=== PATIENT | female | born 1965 | race African-American/Black ===

== ENCOUNTER → 2018-09-16 14:49 | Outpatient (CLI) | payer BC, SELFPAY ==
[2017-02-03 21:53] VITALS: BMI 30.9
[2018-09-16 16:19] LABS: Vitamin D,25 Hydroxy 21.5 ng/mL (29.95-100.01)
--- OUTSIDE RECORDS SUMMARY | 2018-11-02 20:00 | XMS RPT_ITS | Clinical Summary ---
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 CARPAL TUNNEL 27968125 Active Symone Del Castillo Carpal SYNDROME (SNOMED CT) / [place] tunnel syndrome WRIST PAIN 39745343 Active Symone Del Castillo Pain in (SNOMED CT) / [place] wrist Medications Medication Instructions Start Stop Generic Name NDC Provider Date Date CENESTIN 1.25 daily / ESTROGENS CONJ 90919172689 Tonya L MG TABS 04 SYNTHETIC A [place] AMBIEN 5 MG every night / ZOLPIDEM TARTRATE 45020338159 Tonya L TABS 04 [place] XOPENEX 1.25 every 6-8 hrs / LEVALBUTEROL HCL 29252614657 Tonya L MG/3ML NEBU 04 [place] FLEXERIL 10 every night / CYCLOBENZAPRINE 19822047267 Tonya L MG TABS 04 HCL [place] IBUPROFEN 800 three times a / IBUPROFEN 36375550835 Tonya L MG TABS day 04 [place] LORATADINE 10 daily / LORATADINE 91044177670 Tonya L MG TABS 04 [place] Medications Administered No information available. Allergies, Adverse Reactions, Alerts Allergy Name Reaction Start Date Severity Status Provider Description MORPHINE REED Critical Active Tonya Moss PENICILLINS Critical Active Tonya Moss CODEINE Critical Active Tonya Moss ALBUTEROL Critical Active Tonya Moss Results Date Name Value Unit Range Flag Description Office Visit SMOK STATUS former smoker Tobacco use [facility] MEDS REVIEW Done Documentation of current medications (procedure) Lab Report: Lactic Acid LACTATE 0.8 mmol/L 0.4-2.0 lactate, serum/plasma Plan of Care No information available. Procedures No information available. Vital Signs Date Name Value Unit Description Heart Rate 74 /min pulse rate E&M - 8867-4 Weight Measured 126 [lb_av] weight E&M - 3141-9 BP Diastolic 74 mm[Hg] blood pressure, diastolic - 8462-4 BP Systolic 136 mm[Hg] blood pressure, systolic - 8480-6 Height 63 [in_us] height E&M - 8302-2
--- OUTSIDE RECORDS SUMMARY | 2018-11-02 20:00 | XMS RPT_ITS | Clinical Summary ---
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 14878251 Active Symone Del Castillo Carpal SYNDROME (SNOMED CT) / [place] tunnel syndrome WRIST PAIN 70836262 Active Symone Del Castillo Pain in (SNOMED CT) / [place] wrist Medications Medication Instructions Start Stop Generic Name NDC Provider Date Date CENESTIN 1.25 daily / ESTROGENS CONJ 98241950569 Tonya L MG TABS 04 SYNTHETIC A [place] AMBIEN 5 MG every night / ZOLPIDEM TARTRATE 23932084403 Tonya L TABS 04 [place] XOPENEX 1.25 every 6-8 hrs / LEVALBUTEROL HCL 56439812522 Tonya L MG/3ML NEBU 04 [place] FLEXERIL 10 every night / CYCLOBENZAPRINE 57889793093 Tonya L MG TABS 04 HCL [place] IBUPROFEN 800 three times a / IBUPROFEN 64949935893 Tonya L MG TABS day 04 [place] LORATADINE 10 daily / LORATADINE 24131256513 Tonya L MG TABS 04 [place] Medications Administered No information available. Allergies, Adverse [...] Acid LACTATE 0.8 mmol/L 0.4-2.0 lactate, serum/plasma Lab Report: CBC W/Diff, Automated LYMPHCT AUTO 2.25 X10 10*3/mm3 0.83-4.51 lymphocyte 3/UL count, blood, automated ANC 3.4 X10 10*3/mm3 2.0-7.7 neutrophil 3/UL count, blood IMM GRANU % 0.200 % 0.0-0.9 immature granulocytes, percentage of total cells, blood BASOPHIL % 0.5 % 0-1 basophils as percent of blood leukocytes EOSINOPHIL % 3.6 % 0-5 eosinophils as percent of blood leukocytes MONOCYTE % 6.7 % 0-10 monocytes as percent of blood leukocytes LYMPHS % 35.7 % 19-41 lymphocytes as percent of blood leukocytes PMN % 53.3 % 47-70 neutrophils as percent of blood leukocytes MPV 8.9 fL 6.2-12.0 mean platelet volume PLATELETS 260 10*3/mm3 150-450 platelet count RDW-SD 47.2 fL 35.1-43.9 H red blood cell distribution width, size density RDW 14.0 % 11.6-14.6 red blood cell distribution width MCHC RBC 32.6 G/GL g/dL 32-36 mean corpuscular hemoglobin concentration, RBC MCH 29.8 pg 27.0-32.0 mean corpuscular hemoglobin, RBC MCV 91.4 fL 81-99 mean corpuscular volume, RBC HCT 36.2 % 37-47 L hematocrit, blood HGB 11.8 g/dL 12.0-15.0 L hemoglobin, blood RBC M/UL 3.96 10*6/uL 4.2-5.4 L red blood count WBC BLOOD 6.3 10*9/L 4.4-11.0 leukocyte (white blood cells) count, blood Lab Report: Comprehensive Metabolic Profil ANION GAP 7 5-15 anion gap, serum CO2 25.0 mmol/L 21.0-32.0 carbon dioxide, venous blood CHLORIDE 111 mmol/L 98-107 H chloride, serum POTASSIUM 4.1 mmol/L 3.5-5.1 potassium, serum SODIUM 143 mmol/L 136-145 sodium, serum BILI TOTAL 0.50 mg/dL 0.20-1.00 bilirubin, serum, total SGPT (ALT) 18 U/L 12-78 alanine aminotransferase (SGPT), serum ALK PHOS 88 U/L 45-117 alkaline phosphatase, serum SGOT (AST) 18 U/L 15-37 aspartate aminotransferase (SGOT), serum CALCIUM 8.6 mg/dL 8.5-10.1 calcium, serum A/G RATIO 1.0 RATIO 0.9-2.4 albumin/globulin ratio, serum GLOBULIN TOT 3.0 g/dL 2.3-3.5 globulins, serum, total ALBUMIN 2.9 g/dL 3.4-5.0 L albumin, serum PROTEIN, TOT 5.9 g/dL 6.4-8.2 L protein, total, serum BUN/CREAT 9.0 RATIO 10-20 L urea nitrogen/creatinine ratio, serum CCVCREABSA 40.47 mL/min calculated corrected value of creatinine clearance with body surface area GFRAA 54 mL/min >60 L Glomerular Filtration rate GFR EST 44 mL/min >60 L estimated glomerular filtration rate CREATININE 1.33 mg/dL 0.55-1.02 H creatinine, serum BUN 12 mg/dL 7-18 urea nitrogen, blood GLUCOSE SER 83 mg/dL 70-110 blood glucose Plan of Care No information available. Procedures [...]
--- OUTSIDE RECORDS SUMMARY | 2018-11-02 20:01 | XMS RPT_ITS ---
:1965 Author Organization [facility] Care Team Providers Name Role Phone Rehana Hernandez Attending Unavailable Jolliff, Rehana Primary Care Unavailable Jolliff, Rehana Attending Unavailable Jolliff, Rehana Primary Care Unavailable Jolliff, Rehana Referring Unavailable Jolliff, Rehana Attending Unavailable Jolliff, Rehana Referring Unavailable Jolliff, Rehana Primary Care Unavailable Leandra Christy Attending Unavailable Jolliff, Rehana Referring Unavailable PROBLEMS PROBLEMS DATE TYPE CONDITION / CODE ATTENDING STATUS SOURCE 10/22/2018 Unknown R92.0 - Mammographic Brissa Christy microcalcification Leandra [facility] found on diagnostic Hospital imaging of breast / Repository R92.0(ICD-10) PROCEDURES PROCEDURES No Procedure Records FoundRESULTS RESULTS SURGERY VISIT REPORT Observed: 10/22/2018 Status: F Source: [place] 10:52 AM [facility] REPOS[facility] [address] [place] [address] OFFICE VISIT Date of Service: 10/22/18 MR#: [id number] Acct: [id number] Name: JUN SHRESTHA V Rep #: [id number] : 1965 Provider: Leandra Christy MD Age/Sex: 52/F Location: [facility] Status: Signed Intake Vital Signs10/22/18 Height 5 ft 3 in 10/22/18 Weight: 150 lb 10/22/18 Body Mass Index (BMI) 26.5 Intake Visit Reasons: R BREAST CALCIFICATIONS, Mammo @ [facility] Education Rep Required: No Is patient in pain?: No Allergies albuterol Allergy (Verified 10/22/18 10:07) Shortness of breath morphine Allergy (Verified 10/22/18 10:07) Rash Penicillins Allergy (Verified 10/22/18 10:07) Hives Medications fluoxetine 10 mg capsule 10 mg PO DAILY 10/22/18 [History Confirmed 10/22/18] [facility] Medical History Anxiety (Acute) Chronic kidney disease, stage 3 (Chronic) Abdominal pain (Acute) Surgical History S/P colonoscopy (Acute) S/P hysterectomy (Acute) S/P tonsillectomy and adenoidectomy (Acute) Status post breast reduction (Acute) Status post surgical removal of ganglion cyst (Acute) s/p fibroid removal (Acute) Social History Smoking Status: Former smoker alcohol intake: never HPI HPI HPI: JUN SHRESTHA, is a 52 F who presents to the office today for microcalcifications of the right breast in the retroareolar region. Patient denies any trauma to her breast other than having bilateral breast reductions in October 2016 in [place]. Patient was previously cup size F and went to . Patient's most recent mammograms did show microcalcifications in the retroareolar region of the right breast which may be postoperative but he was given a BI-RADS 4. Patient denies any breast pain or nipple discharge or change in the overlying skin of the breast. ROS General General: Yes weight change (loss); no fatigue Breast Breast: Yes abnormal mammogram; no left breast lump, right breast lump, nipple discharge, breast pain, abnormal US or breast enlargement Gastro Gastrointestinal: No abdominal pain, No nausea or vomiting, No diarrhea, No constipation, No blood in stool, No acid reflux, No hemorrhoids, No ulcers, No gallbladder problem, No black,tarry stools Exam Const General: cooperative, comfortable, no acute distress Chest Breast Palpation: No nipple discharge Other: Inspection: Breasts symmetric bilaterally, breast reduction scars bilaterally well-healed, no masses or lumps appreciated in bilateral breast, no supraclavicular adenopathy or axillary adenopathy bilaterally Assessment AND Plan Problems 1. Microcalcification of right breast on mammography R92.0 Plan I have discussed above with the patient. I have recommended right stereotactic breast biopsy for the microcalcifications. I have described the procedure to the patient and then we may need to do 2 different sites for the 2 different areas that show up on mammography. A marker clip will be placed to identify the location. Patient has been counseled to the risks/benefits of the procedure. I have explained the risks of the surgery, including but not limited to: infection, bleeding, injury to any blood vessels/nerves, scar tissue, missing the lesion, further surgery, etc. - the patient understands and agrees to proceed. I have answered all of the patient's questions to her satisfaction and she has no further questions. Leandra Christy M.D. Pager: [phone] [facility] [address] [place] [address], [address] [place] [address] Office: [phone] Coding Level of Care Code Off vis,new,level 3 Diagnoses Microcalcification of right breast on mammography R92.0 10/22/18 1052 <Electronically signed by Leandra Christy MD> Date Leandra Christy MD Cosigner Signature: Date (if applicable) CC: Rehana Hernandez MD DIAG MAMM W/CAD, Observed: 10/16/2018 Status: F Source: [place] BIL[place] 1:20 PM [facility] REPOSITORY [facility] Imaging Services [address] [place] [address] DIAG MAMM W/CAD, BILAT MR#: [id number] Acct: [id number] Name: JUN SHRESTHA V Rep #: [id number] : 1965 F 52 From: Brandon Burks MD PCP: Rehana Hernandez MD Status: REG CLI Study: DIAG MAMM W/CAD, BILAT Date of Exam: 10/16/18 Exam# [id number] Ordering Dr: Rehana Hernandez MD MAMMOGRAPHY - UNILATERAL DIAGNOSTIC: RIGHT BREAST REASON FOR EXAM: Female, 52 years old. Abnormal screening mammogram. PERTINENT HISTORY: Non-contributory. TECHNIQUE: Compression spot views of the right breast were obtained. COMPARISON: Comparison is made with prior study dated September 24, 2018. FINDINGS: Breast Composition: The breasts are heterogeneously dense, which may obscure small masses. The calcifications are once again seen in the retroareolar region of the right breast. The patient has a history of prior breast reduction surgery. This may be related to the postsurgical changes. A biopsy recommended for further evaluation. No other significant abnormalities are identified. BI/DIAG MAMM W/CAD, BILAT IMPRESSION: Persistent calcifications in the retroareolar region of the breast as described. A biopsy is recommended for further evaluation. ASSESSMENT CATEGORY: BIRADS Category 4: Suspicious - Biopsy Should Be Considered. A letter regarding these results will be sent to the patient by the facility within 30 days. Approximately 10% of breast cancers are not detected by mammography. A normal mammogram should not delay biopsy of a clinically suspicious abnormality. Electronically Signed: Brandon Burks MD at 14:42 EST Tel [phone], Service support , CC: Rehana Hernandez MD Ultrasonic Seaming Machine Operator: Signed SCREENING MAMM (CAD), Observed: 09/24/2018 Status: F Source: [place] B[place] 3:46 PM [facility] RE[facility] Services [address] [place] [address] SCREENING MAMM (CAD), BILAT MR#: [id number] Acct: [id number] Name: JUN SHRESTHA V Rep #: [id number] : 1965 F 52 From: Pawel Muniz MD PCP: Rehana Hernandez MD Status: REG CLI Study: SCREENING MAMM (CAD), BILAT Date of Exam: 09/24/18 Exam# [id number] Ordering Dr: Rehana Hernandez MD MAMMOGRAPHY - BILATERAL SCREENING 3-D PATRICK SYNTHESIS REASON FOR EXAM: Female, 52 years old. Bilateral Screening 3-D tomosynthesis PERTINENT HISTORY: No significant family history. TECHNIQUE: 2-D mammograms and 3-D Patrick synthesis of the breast (s) were performed. CAD was performed. COMPARISON: April FINDINGS: The breast composition is of scattered fibroglandular tissue There is cluster of microcalcifications noted on the right side. Behind the nipple a new finding since the previous examination for which I do recommend spot compression and mag view to reevaluate these calcifications, however no dense spiculated masses .No architectural distortion is identified. There is no skin thickening or nipple retraction. BI/SCREENING MAMM (CAD), BILAT IMPRESSION: Cluster of microcalcifications microcalcifications on the right side behind the nipple, new finding since the previous study of April 05, 2015. Need further assessment by spot view with compression and mag view. ASSESSMENT CATEGORY: BIRADS-0 FOLLOW UP RECOMMENDATION: Yearly follow up mammogram recommended. (A) Approximately 10% of breast cancers are not detected by mammography. A normal mammogram should not delay biopsy of a clinically suspicious abnormality. Electronically Signed: Pawel Muniz, at 9:11 EST Tel , Service support , CC: Rehana Hernandez MD Ultrasonic Seaming Machine Operator: Signed VITAMIN D,25 HYDROXY Collected: 09/16/2018 Status: F Source: [place] 2:51 PM [facility] REPOSITORY TYPE CODE TESTS RESULT OUT OF REFERENCE UNITS RANGE LAB L506.1000 29.95-100.01 ng/mL Low Vitamin D 21.5 25-OH Result Comment: Vitamin D 25(OH) Status Range Deficiency <20 ng/mL (50nmol/L) Insuffciency 20 - 30 ng/mL (50 - 75 nmol/L) Sufficiency 30 - 100 ng/mL (75 - 250 nmol/L) Toxicity >100 ng/mL (>250 nmol/L) Performed By: #### L506.1000 #### [facility] [address] [place], [address] ALLERGIES ALLERGIES DATE TYPE / CODE NAME / CODE REACTION SEVERITY SOURCE 10/22/2018 Drug Penicillins/ Hives Unknown [facility] Allergy/4160 [id number](R Hospital 70066(SNOMED XNORM) Repository CT) 10/22/2018 Drug morphine/F00 Rash Unknown [facility] Allergy/4160 6973834(RX Hospital 20826(SNOMED RM) Repository CT) 10/22/2018 Drug albuterol/F0 Shortness of Unknown [facility] Allergy/4160 87997426([facility] 45075(SNOMED ORM) Repository CT) ENCOUNTERS ENCOUNTERS ADMIT/DISCHARGE ACCOUNT ADMITTING ENCOUNTER LOCATION SOURCE NUMBER CLASS 10/22/2018/ [id number] Ambulatory BMSBuilding:[place] [address] 4 [place] [facility] Rep[place] 10/16/2018 [id number] Ambulatory [place] 7 [facility] ing:OPBI Repository 09/24/2018 [id number] Ambulatory [place] 4 [facility] ing:OPBI Repository 09/16/2018 [id number] Amb[place] 4 [facility] ing:MFPLAB Repository PAYERS PAYERS ENCOUNTER GUARANTOR PAYER SUBSCRIBER SOURCE 10/22/2018 JUN V Primary JUN V [place] [id number] [place] Insurance:ANTHEMPolic DAVISDOB: [facility] giovanny SOW y Number: [id number] Hospital 80455Mac: (419) [id number] Repository [phone] () Date:[id number] [address] [place] [address] 83891YU: 10/22/2018 Secondary NOT GIVENUNK [place] Insurance:SELF PAY [facility] Number: Effective Repository Date:2018-10-19 10/16/2018 JUN V Primary JUN V [place] [id number] [place] Insurance:ANTHEMPolic DAVISDOB: [facility] giovanny SOW y Number: [id number] Hospital 37447Ewu: (419) [id number] Repository [phone] () Date:[id number] [address] [place] [address] [id number]: 10/16/2018 Secondary NOT GIVENUNK [place] Insurance:SELF PAY [facility] Number: Effective Repository Date:2018-10-01 09/24/2018 JUN V Primary JUN V [place] [id number] [place] Insurance:ANTHEMPolic DAVISDOB: [facility] giovanny SOW y Number: [id number] Hospital [id number]: (419) [id number] Repository [phone] () Date:[id number] [address] [place] [address] [id number]: 09/24/2018 Secondary NOT GIVENUNK [place] Insurance:SELF PAY [facility] Number: Effective Repository Date:2018-08-07 09/16/2018 Jun V Primary Jun V [place] [id number] [place] Insurance:ANTHEMPolic DavisDOB: [facility] giovanny SOW y Number: [id number] Hospital 18329Dcj: (419) [id number] Repository [phone] () Date:[id number] [address] [place] [address] 47215QJ: 09/16/2018 Secondary NOT GIVENUNK [place] Insurance:SELF PAY [facility] Effective Repository Date:2018-09-16
== END ==
PROVIDERS: Family Provider Family Medicine; PCP Family Medicine; Visit Provider Family Medicine
DX: Z00.00 Encounter for general adult medical examination without abnormal findings (principal)
CPT/HCPCS: 36415; 82306

== ENCOUNTER → 2018-09-24 15:43 | Outpatient (CLI) | payer BC, SELFPAY ==
[2017-02-03 21:53] VITALS: BMI 30.9
--- NOTE | 2018-09-24 15:46 | BI_ITS ---
MAMMOGRAPHY - BILATERAL SCREENING 3-D CORI SYNTHESIS REASON FOR EXAM: Female, 52 years old. Bilateral Screening 3-D tomosynthesis PERTINENT HISTORY: No significant family history. TECHNIQUE: 2-D mammograms and 3-D Cori synthesis of the breast (s) were performed. CAD was performed. COMPARISON: April FINDINGS: The breast composition is of scattered fibroglandular tissue There is cluster of microcalcifications noted on the right side. Behind the nipple a new finding since the previous examination for which I do recommend spot compression and mag view to reevaluate these calcifications, however no dense spiculated masses .No architectural distortion is identified. There is no skin thickening or nipple retraction. BI/SCREENING MAMM (CAD), BILAT IMPRESSION: Cluster of microcalcifications microcalcifications on the right side behind the nipple, new finding since the previous study of April 05, 2015. Need further assessment by spot view with compression and mag view. ASSESSMENT CATEGORY: BIRADS-0 FOLLOW UP RECOMMENDATION: Yearly follow up mammogram recommended. (A) Approximately 10% of breast cancers are not detected by mammography. A normal mammogram should not delay biopsy of a clinically suspicious abnormality. Electronically Signed: Pawel Muniz, at 9:11 EST Tel , Service support ,
== END ==
PROVIDERS: Family Provider Family Medicine; PCP Family Medicine; Referring Provider Family Medicine; Visit Provider Family Medicine
DX: Z12.31 Encounter for screening mammogram for malignant neoplasm of breast (principal)
CPT/HCPCS: 77063; 77067

== ENCOUNTER → 2018-10-16 13:16 | Outpatient (CLI) | payer BC, SELFPAY ==
--- NOTE | 2018-10-16 13:19 | BI_ITS ---
MAMMOGRAPHY - UNILATERAL DIAGNOSTIC: RIGHT BREAST REASON FOR EXAM: Female, 52 years old. Abnormal screening mammogram. PERTINENT HISTORY: Non-contributory. TECHNIQUE: Compression spot views of the right breast were obtained. COMPARISON: Comparison is made with prior study dated September 24, 2018. FINDINGS: Breast Composition: The breasts are heterogeneously dense, which may obscure small masses. The calcifications are once again seen in the retroareolar region of the right breast. The patient has a history of prior breast reduction surgery. This may be related to the postsurgical changes. A biopsy recommended for further evaluation. No other significant abnormalities are identified. BI/DIAG MAMM W/CAD, BILAT IMPRESSION: Persistent calcifications in the retroareolar region of the breast as described. A biopsy is recommended for further evaluation. ASSESSMENT CATEGORY: BIRADS Category 4: Suspicious - Biopsy Should Be Considered. A letter regarding these results will be sent to the patient by the facility within 30 days. Approximately 10% of breast cancers are not detected by mammography. A normal mammogram should not delay biopsy of a clinically suspicious abnormality. Electronically Signed: Brandon Burks MD at 14:42 EST Tel [phone], Service support ,
== END ==
PROVIDERS: Family Provider Family Medicine; PCP Family Medicine; Referring Provider Family Medicine; Visit Provider Family Medicine
DX: R92.1 Mammographic calcification found on diagnostic imaging of breast (principal)
CPT/HCPCS: 77062; 77066; G0279

== ENCOUNTER → 2018-11-06 07:45 | Outpatient (CLI) | payer BC, SELFPAY ==
[2018-10-22 10:06] VITALS: BMI 26.5
--- NOTE | 2018-11-06 | BRBX_PTH ---
PATIENT: JUN SHRESTHA V LOC: [facility] U#:[id number] AGE/SX: 59/F ROOM: RE11/06/[address]: Dr. Leandra Christy MD : 1965 BED: DIS: SPEC #: [id number] RECD: 11/06/18 14:24 STATUS: RAF KARLA #: [id number] ALE: 11/06/18 00:[address]: Leandra Christy DEPT: SURGICAL PATHOLOGY RECD BY: Angel Llanos ENTERED: 11/06/18 14:25 SP TYPE: BREAST BX LYNNE DR: Dr. Rehana Hernandez MD Tissues: A - Right breast, NOS B - Right breast, NOS Procedures: Surgery Specimen Level IV HEADER OPERATION: Right stereotactic breast biopsy PRE-OP DIAGNOSIS: Right breast retroareolar microcalcifications TISSUE SUBMITTED: A - Right breast 12 o'clock retroareolar area, B - Right breast lower outer quadrant area ISCHEMIC TIME: 1 minute FIXATION TIME: 58.5 hours MICROSCOPIC DIAGNOSIS A. Right breast, stereotactic core biopsy: Fat necrosis, fibrosis and associated benign histiocytic reaction. Banal microcalcifications. No evidence of malignancy. B. Right breast, lower outer quadrant, core biopsy: Fat necrosis, fibrosis and associated benign histiocytic reaction. Banal microcalcifications. No evidence of malignancy. AM:anam 11/09/18 MICROSCOPIC DESCRIPTION Slides are reviewed. GROSS DESCRIPTION A - Received is one container labeled with the patient's name and not further designated. The specimen consists of multiple irregular and elongated fragments of yellow-pink soft tissue that in aggregate measure 2.5 x 2 x 0.2 cm. The specimen is totally submitted in one cassette. B - Received in fixative is one container labeled with the patient's name and designated [facility]. The specimen consists of multiple irregular and elongated fragments of yellow-pink soft tissue that in aggregate measure 2.5 x 2 x 0.2 cm. The specimen is totally submitted in one cassette. / AM:anam 11/06/18 TC:5 CPT: 71341 x2
--- NOTE | 2018-11-06 09:23 | OP.PCM_ITS ---
Operative Report Date of Procedure: 11/06/18 Procedure: Right stereotactic core biopsy Indications: 52 year-old female with micro calcifications in the 12:00/retroareolar and inferior/lateral of the right breast. Patient also does have a past medical history of having bilateral breast reductions in 2017. Risk benefits were discussed the patient and she elected to proceed with stereotactic core biopsy with clip placement Description of procedure: Patient was brought into the mammography suite and laid prone on the stereotactic table. A timeout was completed verifying correct patient, procedure, site, specially, prior to beginning procedure. The right breast was prepped and draped in usual sterile fashion and using local anesthesia was obtained with 1% lidocaine with epi. Patient's right breast was positioned and placed into compression. The cc view was used for the 12:00/retroareolar microcalcifications and the MLO view was used for the inferior/lateral calcifications. Both procedures were done as follows. Initial film showed calcifications are in the center of the compression paddle. 15? views were then taken. The calcifications were localized. The left breast was prepped draped in usual sterile fashion. An 10- gauge mammotome was set up according to the digital coordinates. The tract of the mammotome was anesthetized with local anesthesia and an incision was made with the 11 blade scalpel at the entry site. The mammotome was advanced to the prefire state. Pre-prior films were checked and verified. The mammotome was fired. Post fire films were also checked and verified. Biopsies were taken from 9:00 to 11:00 for both areas. The specimen was x-rayed and most of the calcifications were within the specimen for the 12:00/retroareolar and all for inferior/lateral. Mammotome clip was placed at the 12 o'clock position: For the 12:00/retroareolar areolar microcalcifications mammotome resolve ribbon clip was used and for the inferior/lateral microcalcifications the petite barbel mammotome revolve was used. The mammotome was removed from the breast. An additional films were taken which showed all calcifications were removed and a clip was in place. Pressure was held for hemostasis. Once hemostasis was assured the wound was dressed with Steri-Strips and OpSite. Patient also went over to the mammography suite and had a 2 view mammography done also documented in verifying clips. The patient tolerated the procedure well and was discharged from the mammography suite good condition. complications: none
== END ==
PROVIDERS: Family Provider Family Medicine; PCP Family Medicine; Referring Provider Surgery; Visit Provider Surgery
DX: N64.1 Fat necrosis of breast (principal); R92.0 Mammographic microcalcification found on diagnostic imaging of breast
CPT/HCPCS: 19081; 19082; 88305

== ENCOUNTER 2019-08-04 07:31 | Day surgery (SDC) | payer BC, SELFPAY ==
--- NOTE | 2019-07-13 03:48 | HP_ITS ---
I have re-examined the patient. There are no clinical changes since date of exam. Intake Vital Signs 07/13/19 Body Mass Index (BMI) 26.5 Intake Visit Reasons: Right hand Is patient in pain?: Yes Pain scale (1-10): 7 Allergies albuterol Allergy (Verified 07/13/19 15:23) Shortness of breath morphine Allergy (Verified 07/13/19 15:23) Rash Penicillins Allergy (Verified 07/13/19 15:23) Hives [facility] Medical History (Updated 11/06/18 @ 09:25 by Leandra Christy MD) Anxiety (Acute) Chronic kidney disease, stage 3 (Chronic) Abdominal pain (Acute) Surgical History (Updated 11/06/18 @ 09:25 by Leandra Christy MD) S/P colonoscopy (Acute) S/P hysterectomy (Acute) S/P tonsillectomy and adenoidectomy (Acute) Status post breast reduction (Acute) Status post surgical removal of ganglion cyst (Acute) s/p fibroid removal (Acute) Social History (Updated 07/16/19 @ 13:07 by Bhumi Meneses DO) Smoking Status: Former smoker alcohol intake: never HPI Right hand: Surgical H&P: Yes Details: Parts of this documentation were recorded by a scribe, this documentation accurately reflects the service provided and the decisions made by me, Bhumi Meneses DO 07/13/19 [id number]. JUN SHRESTHA is a 53 year old F here today for continued right hand pain. Patient notes that she has pain over her entire hand and into her wrist. She complains of numbness and tingling, and she has a sharp pain. Patient constantly shakes her hand. Her pain is constant. Patient states that she is dropping items. Patient has increased tingling with writing. Patient notes that she has tried bracing which is not helpful. She tried occupational therapy which was not helpful. She had an injection many years ago and had no relief. Patient had an EMG more than 5 years ago. She does many activities left handed but writes with her right hand. She has tried aleve, tylenol and ibuprofen with no relief. ROS Musc Reports joint pain, Reports muscle weakness, Reports numbness, Reports tingling Skin/Breast Reports system reviewed and no additional complaints, except as docu Neuro Yes system reviewed and no additional complaints, except as docu, Yes numbness, Yes tingling Ortho Exam Right Wrist/Hand Right Wrist: Yes Durken's Test and Thenar Atrophy Motor: EPL: 5, FDP-2: 5, 1st Dorsal Interosseous: 5, APB: 5 Sensation: Radial: I, Ulnar: I, Median: D Assessment & Plan Problems 1. Carpal tunnel syndrome of right wrist G56.01 Plan Explained that she has signs of carpal tunnel and today we will consent for surgery and request the results of the most recent EMG. She has wasting today and has failed all conservative options. Reviewed the pre-operative plans with the patient. Risks and benefits of the procedure were fully explained, including but not limited to infection, neurovascular injury, continued pain, arthritis, stiffness, need for further surgery, re-injury, DVT, PE, general risks of anesthesia, and loss of limb or life. The patient understands all the risks and does wish to proceed with written consent. Follow up post op or sooner if pain, swelling, numbness or associated symptoms, or concerns develop. All questions answered. Patient in agreement of plan. Coding Level of Care Code Off vis,est,level 4 Diagnoses Carpal tunnel syndrome of right wrist G56.01 07/16/19 [id number] <Electronically signed by Bhumi meeks DO> Date _ Bhumi Meneses DO
[2019-07-13 15:22] VITALS: BMI 26.5
[2019-08-04] VITALS (7 sets, daily range): BP systolic 117–157; BP diastolic 62–93; PULSE 60–82; RESP 16; TEMP 36.2–36.8; O2SAT 95–100; BMI 27.8
[2019-08-04] MEDS: Cefazolin 2 GM in 0.9% Normal Saline 100 ML IV (07:15)
[2019-08-04] MEDS: Lactated Ringers 1,000 ML 100 ML IV (08:08)
--- NOTE | 2019-08-04 09:25 | DCINST_ITS ---
Discharge Diet: No Restrictions - leave dressing on until seen in postop clinic in 10-14 days for suture removal, keep dressing clean, dry, intact; change dressing if gets wet/dirty, call with concerns Discharge Activity: May Not Drive May shower in (days): 1 Ice area for (Minutes): 20 - Every hour while awake. Weight Bearing Status: Weight bearing as tolerated Keep extremity elevated above heart level: Operative Extremity Call your doctor if your incision/area has: Continuous Slow Oozing, Sudden Increased Bleeding, Increased Pain/ Swelling, Increased Redness, Foul Smelling Discharge Call your doctor if you observe: Fever of 101 or Higher, Coldness, Increased Pain, Numbness or Tingling, Change in Color, Calf discomfort Allergies/Adverse Reactions: Allergies albuterol Allergy (Verified 07/28/19 14:17) Shortness of breath morphine Allergy (Verified 07/28/19 14:17) Rash Penicillins Allergy (Verified 07/28/19 14:17) Hives Medications to take at Discharge fluoxetine 10 mg capsule 10 mg PO DAILY 10/22/18 C,E,Zinc,Copper 11/Hwiao7e/Lut [Ocuvite Adult 50 Plus Softgel] 1 ea PO DAILY 07/28/19 Mv-Mn/Folic Acid/Calcium/Vit K [Women's 50 Plus Multivit Tab] 1 ea PO DAILY 07/28/19 Primary Care Physician: Rehana Hernandez MD [Primary Care Provider] - Test Results: Test results from this visit will be discussed in further detail at your follow- up appointment, if applicable. Please Follow Up With: Bhumi Meneses, DO - [phone]
--- NOTE | 2019-08-04 09:27 | PCM.OPRPT ---
Report of Operation Date of Procedure: 08/04/19 Pre-Operative Diagnosis: right carpal tunnel syndrome Post-Operative Diagnosis: same Surgery/Procedure Performed:: right carpal tunnel release Type of Anesthesia:: Shubham Danielson Anesthesiologist: Tanmay Sawant Specimen's removed: tt-10min Estimated Blood Loss (mL): none Fluids Replaced: 700cc lr Description of Procedure: Preoperative note Patient is a 53 year old patient with nerve conduction study confirming carpal tunnel syndrome. Patient failed conservative treatment for her carpal tunnel elected proceed with right carpal tunnel release. Risks benefits and alternatives surgery discussed with patient. Risks including but not limited to blood loss, blood clot, infection, neurovascular injury, failure procedure, loss of life and loss of limb. Patient is aware like proceed with right carpal tunnel release. Operative note Patient seen and examined preoperative holding area. right hand was marked. History and physical and consent reviewed. Patient was brought to the operating room placed supine on the operating table. Sign in, anesthesia, antibiotics were administered. right upper extremity was prepped and draped after [place] block was initiated. All bony prominences well-padded SCDs placed on bilateral lower extremities. We marked out our incisions for our carpal tunnel release at the intersection of Wilber's line in the fourth ray flexed. We extended about a centimeter and a half. Timeout was performed. We then checked ensure that the [place] block was working with pickups which it was not so we performed a local block of 10cc 1% lidocaine. We then used a 15 blade to make a skin incision. We then dissected down tenotomy syllable of the transverse carpal ligament. We then used a new 15 blade cut through the transverse carpal ligament down to the level of the median nerve. We then further released the median nerve the combination of the 15 blade and tenotomies. The nerve was grayish in color and adherent to the transverse carpal ligament volarly. We released the transverse carpal ligament distally to the fat pad and then proximally under standard technique. We then palpated to ensure that we released all of the transverse carpal ligament which we did. We irrigated the incision with copious amounts of sterile saline. All bleeders were coagulated. The incision was closed with interrupted 4-0 nylon stitches. Tourniquet was deflated for total working time of 10 minutes. Patient tolerated procedure well there were no complications. Patient transferred to recovery room in stable condition. Postoperative note Leave dressing clean dry and intact Follow-up in 2 weeks Call with concerns This note was generated with [employer] dictation software. It may contain incorrect words, spelling, and punctuation that were not noted in checking the note before signing
[2019-08-04] MEDS: Mupirocin Ointment 22gm Tube 1 APPLIC (09:55)
[2019-08-04] MEDS: HYDROcodone Bitartrate/Apap 5/325 Tablet PO (11:12)
== END 2019-08-04 12:06 | disposition home or self-care (01) ==
LOC: SDC 07:33 → AC 07:33
PROVIDERS: Family Provider Family Medicine; PCP Family Medicine; Referring Provider Orthopaedic Surgery; Visit Provider Orthopaedic Surgery
PROC: (CPT 64721; principal; 2019-08-04 08:55)
DX: G56.01 Carpal tunnel syndrome, right upper limb (principal); N18.3 Chronic kidney disease, stage 3 (moderate); Z87.891 Personal history of nicotine dependence; Z88.0 Allergy status to penicillin
CPT/HCPCS: 64721; J7120; A4216; J2405

== ENCOUNTER → 2019-11-12 | Outpatient (CLI) | payer BC, SELFPAY ==
[2019-09-16 13:57] VITALS: BMI 27.8
--- NOTE | 2019-11-12 14:00 | BI_ITS ---
MAMMOGRAPHY - BILATERAL SCREENING 3-D TOMOSYNTHESIS REASON FOR EXAM: Female, 53 years old. Routine screening, PERTINENT HISTORY: No significant family history. Previous reduction surgery TECHNIQUE: 2-D mammograms and 3-D Tomosynthesis of the breast (s) were performed. CAD was performed. COMPARISON: None. FINDINGS: The breast composition is composed of scattered fibroglandular density. Scattered benign calcifications are seen. No dense spiculated masses or suspicious microcalcifications are identified. Stable architectural distortion from previous breast reduction surgery. There is no skin thickening or retraction. There has been no significant change since the prior study. BI/SCREEN MAMM (CAD) W/CORI BILAT IMPRESSION: No mammographic signs of malignancy. Routine yearly mammograms recommended. ASSESSMENT CATEGORY: BIRADS Category 2: Benign. A letter regarding these results will be sent to the patient by the facility within 30 days. FOLLOW UP RECOMMENDATION: Yearly follow up mammogram recommended. (A) Approximately 10% of breast cancers are not detected by mammography. A normal mammogram should not delay biopsy of a clinically suspicious abnormality. Electronically Signed: Rian Ibrahim MD at 9:31 EST , Service support ,
== END | disposition home or self-care (01) ==
PROVIDERS: Family Provider Family Medicine; PCP Family Medicine; Referring Provider Family Medicine; Visit Provider Family Medicine
DX: Z12.31 Encounter for screening mammogram for malignant neoplasm of breast (principal)
CPT/HCPCS: 77063; 77067

== ENCOUNTER → 2020-01-26 14:33 | Outpatient (CLI) | payer BC, SELFPAY ==
[2019-09-16 13:57] VITALS: BMI 27.8
--- NOTE | 2020-01-26 15:07 | NEURO ---
NCS and/or EMG Patient Report Ordering Doctor: Bhumi Meneses DATE OF SERVICE: 01/26/20 Azeb Hutchison presents for electrodiagnostic testing of the left upper limb due to numbness and tingling in the hand. She also has neck pain radiating into the left arm. Electrodiagnostic findings: The left median motor nerve demonstrates normal distal latency, amplitude and conduction velocity. Normal left ulnar motor response normal median ulnar F waves. Mildly prolonged left median sensory latency at the wrist. Normal ulnar and radial sensory responses. Normal median palmar latency. On needle EMG 1+ fibrillations are noted in the flexor carpi ulnaris, triceps and lower cervical paraspinals. Decreased recruitment pattern in is noted in the left triceps. Motor unit action potentials of normal amplitude and duration. Electrodiagnostic impression this is an abnormal study in the left upper limb 1. Electrodiagnostic findings demonstrate acute left-sided C7 radiculopathy. Consider clinical correlation with cervical spine imaging. 2 electrodiagnostic evidence demonstrates left-sided median mononeuropathy. This is consistent with a mild left carpal tunnel syndrome. If there are any further questions, please do not hesitate to contact me.
== END ==
PROVIDERS: Family Provider Family Medicine; PCP Family Medicine; Referring Provider Orthopaedic Surgery; Visit Provider Orthopaedic Surgery
DX: G56.02 Carpal tunnel syndrome, left upper limb (principal)
CPT/HCPCS: 95886; 95910

== ENCOUNTER → 2020-02-08 | Outpatient (CLI) | payer BC, SELFPAY ==
[2020-02-03 14:20] VITALS: BMI 27.8
--- NOTE | 2020-02-08 17:03 | MRI_ITS ---
STUDY: MRI CERVICAL SPINE WITHOUT CONTRAST REASON FOR EXAM: Female, 54 years old. Radiculopathy, neck and left arm pain x 1 year TECHNIQUE: Standardized fat and water weighted pulse sequences were obtained in the sagittal and axial planes. COMPARISON: None FINDINGS: Normal foramen magnum and brainstem-cervical cord junction. Normal craniovertebral junction. Normal anterior atlantoaxial articulation. Normal odontoid process. Normal cervical lordosis. Normal vertebral bodies and posterior osseous elements. C2-3: Normal endplates. Normal disc height, signal and morphology. Normal central canal and intervertebral neural foramina. C3-4: Normal endplates. Normal disc height, signal and morphology. Normal central canal and intervertebral neural foramina. C4-5: Normal endplates. Normal disc height, signal and morphology. Normal central canal and intervertebral neural foramina. C5-6: Normal endplates. Normal disc height, signal and morphology. Normal central canal and intervertebral neural foramina. C6-7: Normal endplates. Normal disc height, signal and morphology. Normal central canal and intervertebral neural foramina. C7-T1: Normal endplates. Normal disc height, signal and morphology. Normal central canal and intervertebral neural foramina. Normal cervical cord. Normal visualized soft tissue structures. MRI/Spine Cervical (Routine) IMPRESSION: Normal unenhanced MR examination of the cervical spine. Electronically Signed: Azeb Verma MD at 20:20 EDT Tel , Service support ,
== END | disposition home or self-care (01) ==
LOC: MRI 17:03
PROVIDERS: PCP Family Medicine; Referring Provider Orthopaedic Surgery; Visit Provider Orthopaedic Surgery
DX: M54.12 Radiculopathy, cervical region (principal)
CPT/HCPCS: 72141

== ENCOUNTER → 2020-02-18 | Outpatient (CLI) | payer BC, SELFPAY ==
[2020-02-03 14:20] VITALS: BMI 27.8
[2020-02-18 17:36] LABS: Absolute Neutrophil Count 2.5 X10^3/uL (2.0-7.7); Basophil# 0.07 X10^3/uL; Basophil% 1.2 % (0-1); Eosinophil# 0.19 X10^3/uL; Eosinophils% 3.4 % (0-5); Hematocrit 40.9 % (37-47); Hemoglobin 13.7 g/dL (12.0-15.0); Lymphocyte % 42.8 % (19-41); Mean Corp Hgb Conc 33.5 g/dL (32-36); Mean Corpuscular Hgb 31.3 pg (27.0-32.0); Mean Corpuscular Volume 93.4 fL (81-99); Mean Platelet Vol. 11.5 fl (6.2-12.0); Monocyte# 0.48 X10^3/uL; Monocyte% 8.6 % (0-10); NRBC Flagged by Analyzer 0 % (0-5); Neutrophil # 2.45 X10^3/uL (2.7-7.7); Neutrophil % 43.6 % (47-70); POSITIVE COUNT YES; Platelet Count 132 K/mm3 (150-450); RBC Distribution Width CV 13.6 % (11.6-14.6); RBC Distribution Width SD 46.2 fl (35.1-43.9); Red Blood Count 4.38 M/mm3 (4.2-5.4); White Blood Count 5.6 K/mm3 (4.4-11.0)
[2020-02-18 17:38] LABS: Differential Indicated SCAN CRITERIA MET
[2020-02-18 18:03] LABS: Differential Comment SCANNED
[2020-02-18 18:13] LABS: Cholesterol 279 mg/dL (200); High Density Lipoprotein 76 mg/dL; Thyroid Stim Hormone (TSH) 1.47 uIU/mL (0.358-3.74); Triglycerides 81 mg/dL; Very Low Density Lipoprotein 16 mg/dL (5-40)
== END | disposition home or self-care (01) ==
PROVIDERS: PCP Family Medicine; Referring Provider Family Medicine; Visit Provider Family Medicine
DX: E78.5 Hyperlipidemia, unspecified (principal); F32.9 Major depressive disorder, single episode, unspecified
CPT/HCPCS: 36415; 80061; 84443; 85025

== ENCOUNTER → 2020-03-21 | Outpatient (CLI) | payer BC, SELFPAY ==
[2020-02-03 14:20] VITALS: BMI 27.8
[2020-03-21 11:27] VITALS: BMI 27.8
[2020-03-21 15:33] LABS: AST(SGOT) 17 U/L (15-37); Alanine Aminotransfer ALT/SGPT 22 U/L (13-56); Cholesterol 191 mg/dL (200); High Density Lipoprotein 74 mg/dL; Triglycerides 67 mg/dL; Very Low Density Lipoprotein 13 mg/dL (5-40)
== END | disposition home or self-care (01) ==
LOC: MTLAB 03-24 14:47
PROVIDERS: PCP Family Medicine; Referring Provider Family Medicine; Visit Provider Family Medicine
DX: E78.5 Hyperlipidemia, unspecified (principal)
CPT/HCPCS: 36415; 80061; 84450; 84460

== ENCOUNTER 2020-04-11 16:20 | Emergency (ER) | payer BC, SELFPAY ==
[2020-03-21 11:27] VITALS: BMI 27.8
[2020-04-11 16:21] VITALS: BP 148/56; PULSE 83; RESP 15; TEMP 37; O2SAT 98; BMI 27.1
--- NOTE | 2020-04-11 16:37 | CT_ITS ---
STUDY: CT ABDOMEN AND PELVIS WITHOUT CONTRAST REASON FOR EXAM: Female, 54 years old. LT FLANK PAIN/HEMATURIA RADIATION DOSAGE (If Supplied By Facility): CTDIvol = ( 12.48 ) mGy, DLP = ( 567.41 ) mGycm TECHNIQUE: Transaxial images were obtained from the dome of the diaphragm to the symphysis pubis without oral contrast, and without intravenous contrast. Sagittal and coronal images were reconstructed. Individualized dose optimization techniques were used for this CT. COMPARISON: February 04, 2017 FINDINGS: The visualized lung bases are unremarkable. The visualized portions of the heart are within normal limits. There is 1.6 cm cyst in the right lobe of the liver. Normal gallbladder and extrahepatic biliary system. Normal spleen. Normal pancreas. Normal bilateral adrenal glands. Normal right kidney. Normal left kidney. Normal visualized stomach. Normal small intestine. There is diverticulosis, with thickening of the sigmoid colon wall, and left lower quadrant pericolonic inflammation changes consistent with acute diverticulitis. The appendix is visualized and appears normal. Normal abdominal aorta. Normal inferior vena cava. Normal retroperitoneum. Normal urinary bladder. There is absence of the uterus consistent with a prior hysterectomy. There is no free fluid in the abdomen or pelvis. Normal abdominal wall. Normal osseous structures. CT/Abdomen/Pelvis without Cont IMPRESSION: Sigmoid diverticulitis. No obstruction or abscess. Electronically Signed: Kory Gomez MD at 18:00 EDT , Service support ,
--- NOTE | 2020-04-11 16:39 | ED.VISSUMM ---
- ER Visit Summary Date of Service: 04/11/20 Chief Complaint: Left flank pain History of Present Illness: The patient is a 54 F presenting with left flank pain. She states this started yesterday. She has pain left lower back radiating to her left lower quadrant. She has nausea with no vomiting. She was seen by her primary care physician today. She states she was told she had blood in her urine with no infection. She was sent to the ED for concern about possible kidney stone. Physical Examination: Vitals are stable. Patient is afebrile. Alert no acute distress. HEENT exam is unremarkable. Neck is supple. Lungs are clear and equal bilaterally. Heart is regular rate and rhythm. Abdomen is soft nontender nondistended. Left CVA tenderness Extremities are unremarkable. Skin is warm and dry. No focal neurologic deficit. Remainder of exam is unremarkable. Emergency Department Course and Treatment: Patient was given IV fluids, Dilaudid, Zofran with improvement. Urinalysis unremarkable. CT abdomen pelvis shows sigmoid diverticulitis. No obstruction or abscess. She has an allergy to penicillin. She was given Cipro, Flagyl. Advised to follow-up with her primary care physician. Advised return to ED for worsening complaints. Disposition: Discharged home Impression: Diverticulitis This note was generated with [employer] dictation software. It may contain incorrect words, spelling, and punctuation that were not noted in review of the chart prior to signing ED Disposition - Plan for ED Patient: Referrals: Rehana Hernandez MD [Primary Care Provider] -
[2020-04-11] MEDS: Ondansetron 4 MG/2 ML Vial IV (17:05)
[2020-04-11] MEDS: HYDROmorphone 1 MG/ML Syringe 0.5 MG IV (17:05)
[2020-04-11] MEDS: 0.9% Normal Saline 1,000 ML 1000 ML IV (17:05)
[2020-04-11] MEDS: HYDROmorphone 1 MG/ML Syringe IV (17:15)
[2020-04-11 17:35] LABS: Bacteria 0 SEEN /hpf (None Seen); Mucous, Urine 0 SEEN /hpf (<or=2+); Red Blood Cells-Urine 0 SEEN /hpf (0-5); Squamous Epithelial Cells - UA 0 SEEN /hpf (5-10); White Blood Cells 0 SEEN /hpf (0-5)
[2020-04-11 17:36] LABS: Color, Urine Yellow (Yellow); Glucose, Dipstick Normal (Normal); Ketone-Dipstick Negative (Negative); Leukocyte Esterase-Dipstick Negative /ul (Negative); Nitrite-Dipstick Negative (Negative); Occult Blood-Urine 10 /ul (Negative); Protein-Dipstick 15 mg/dl (Negative); Specific Gravity, Urine 1.005 (1.002-1.030); Urine Bilirubin Dipstick Negative (Negative); Urine Clarity Clear (Clear); Urine Urobilinogen Normal (Normal); Urine pH 6.5 (5.0 - 8.0)
[2020-04-11 17:39] VITALS: BP 128/72; PULSE 78; RESP 16; O2SAT 96
[2020-04-11 18:00] VITALS: BP 132/59; PULSE 67; RESP 19; O2SAT 99
--- NOTE | 2020-04-11 19:04 | ED.DEP ---
ED Disposition - Plan for ED Patient: Instructions: ED Diverticulitis Prescriptions: Ciprofloxacin [Cipro] 500 mg PO BID #14 tablet metroNIDAZOLE [Flagyl] 500 mg PO Q8H #21 tablet Referrals: Rehana Hernandez MD [Primary Care Provider] -
[2020-04-11] MEDS: metroNIDAZOLE 500 MG Tablet PO (19:24)
[2020-04-11] MEDS: Ciprofloxacin 500 MG Tablet PO (19:24)
[2020-04-11 19:31] VITALS: BP 138/74; PULSE 71; RESP 16; O2SAT 98
== END 2020-04-11 20:09 | disposition home or self-care (01) ==
LOC: ED 17:43
PROVIDERS: Emergency Provider Emergency Medicine; PCP Family Medicine
DX: K57.32 Diverticulitis of large intestine without perforation or abscess without bleeding (principal)
CPT/HCPCS: 74176; 81001; 96361; 96374; 96375; 99283; J7030; A4216; J2405

== ENCOUNTER 2020-07-21 12:41 | Emergency (ER) | payer BC, SELFPAY ==
[2020-07-21 12:41] VITALS: BP 149/82; PULSE 78; RESP 17; TEMP 36.1; O2SAT 99; BMI 27.1
--- NOTE | 2020-07-21 12:54 | CT_ITS ---
STUDY: CT ABDOMEN AND PELVIS WITH CONTRAST REASON FOR EXAM: Female, 54 years old. LLQ PAIN X 4 DAYS, HX DIVERTICULITIS RADIATION DOSAGE (If Supplied By Facility): CTDIvol = ( 12.49 ) mGy, DLP = ( 566.10 ) mGycm TECHNIQUE: Transaxial images were obtained from the dome of the diaphragm to the symphysis pubis with oral contrast. Oral and amp; IV Gastrografin and amp; 100mL Isovue-300 was administered. Sagittal and coronal images were reconstructed. Individualized dose optimization techniques were used for this CT. COMPARISON: Comparison is made with prior study dated 04/11/2020. FINDINGS: The visualized lung bases are unremarkable. Punctate calcification in the right breast. Stable 1.6 cm cyst in the lateral aspect of the right lobe of the liver inferiorly. Normal gallbladder and extrahepatic biliary system. Normal spleen. Normal pancreas. Normal bilateral adrenal glands. Normal right kidney. Stable 1.8 cm x 1.9 cm cyst in the left renal pelvis. Normal visualized stomach. Normal small intestine. There is diverticulosis, with thickening of the colon wall, and pericolonic inflammation changes consistent with acute diverticulitis. The appendix is visualized and appears normal. Normal abdominal aorta. Normal inferior vena cava. Normal retroperitoneum. Normal urinary bladder. There is absence of the uterus consistent with a prior hysterectomy. Normal abdominal wall. Straightening of the normal lumbar lordosis. CT/Abdomen/Pelvis WITH Contrast IMPRESSION: Mild degree of sigmoid diverticulitis. No abnormal fluid collection or free air is seen. Stable left renal cyst. Stable small cyst in the right lobe of the liver. Electronically Signed: Brandon Burks, at 15:17 EDT , Service support ,
--- NOTE | 2020-07-21 12:55 | ED.DCSUM_ITS ---
- ER Visit Summary Date of Service: 07/21/20 Chief Complaint: Abdominal pain History of Present Illness: The patient is a 54 F presenting with abdominal pain. She states this started on Friday. Pain is mostly in the left lower quadrant and suprapubic region. She had diverticulitis in April treated with C ipro and Flagyl. She improved and then this started again 4 days ago. She denies fever. She has constipation. She has nausea with no vomiting. She was seen by her primary care physician today and was sent to the ED for further evaluation. Physical Examination: Vitals are stable. Patient is afebrile. Alert no acute distress. HEENT exam is unremarkable. Neck is supple. Lungs are clear and equal bilaterally. Heart is regular rate and rhythm. Abdomen is soft left lower quadrant tenderness, no rebound Extremities are unremarkable. Skin is warm and dry. No focal neurologic deficit. Remainder of exam is unremarkable. Emergency Department Course and Treatment: Patient is given Dilaudid, Zofran IV. CBC, chemistries unremarkable other than creatinine 1.33, this is her baseline. Urinalysis unremarkable. CT abdomen pelvis shows mild degree of sigmoid diverticulitis. No abnormal fluid collection or free air is seen. Stable left renal cyst. Stable small cyst in the right lobe of the liver. Patient has improvement of her symptoms. She is given prescription for Cipro and Flagyl. She was given prescription for Percocet and Phenergan. Advised to follow-up with primary care physician. Advised return to ED for worsening complaints. Disposition: Discharge home Impression: Acute diverticulitis This note was generated with [employer] dictation software. It may contain incorrect words, spelling, and punctuation that were not noted in review of the chart prior to signing ED Disposition - Plan for ED Patient: Instructions: ED Diverticulitis Prescriptions: Ciprofloxacin [Cipro] 500 mg PO BID #14 tab Prescription Printed metroNIDAZOLE [Flagyl] 500 mg PO Q8H #21 tab Prescription Printed Oxycodone HCl/Acetaminophen [Percocet 5/325] 1 tab PO Q6H PRN PRN 3 Days #12 tab PRN Reason: Pain Prescription Printed proMETHazine tablet [Phenergan] 25 mg PO Q6H PRN PRN #10 tab PRN Reason: Nausea Prescription Printed Referrals: Rehana Hernandez MD [Primary Care Provider] -
[2020-07-21] MEDS: HYDROmorphone 1 MG/ML Syringe IV ×2 (13:05→14:44)
[2020-07-21] MEDS: Ondansetron 4 MG/2 ML Vial IV (13:05)
[2020-07-21 13:11] LABS: Absolute Lymphocyte Count 1.85 X10^3/uL (0.83-4.51); Absolute Neutrophil Count 2.7 X10^3/uL (2.0-7.7); Basophil# 0.04 X10^3/uL; Basophil% 0.8 % (0-1); Eosinophil# 0.07 X10^3/uL; Eosinophils% 1.3 % (0-5); Hematocrit 43.4 % (37-47); Lymphocyte # 1.85 X10^3/ul (4.0); Lymphocyte % 35.5 % (19-41); Mean Corp Hgb Conc 32.3 g/dL (32-36); Mean Corpuscular Hgb 30.4 pg (27.0-32.0); Mean Corpuscular Volume 94.1 fL (81-99); Mean Platelet Vol. 8.6 fl (6.2-12.0); Monocyte# 0.53 X10^3/uL; Monocyte% 10.2 % (0-10); NRBC Flagged by Analyzer 0 % (0-5); Neutrophil # 2.71 X10^3/uL (2.7-7.7); Platelet Count 288 K/mm3 (150-450); RBC Distribution Width CV 13.5 % (11.6-14.6); RBC Distribution Width SD 46.7 fl (35.1-43.9); Red Blood Count 4.61 M/mm3 (4.2-5.4); White Blood Count 5.2 K/mm3 (4.4-11.0)
[2020-07-21 13:26] LABS: ALB/GLOB Ratio 0.9 RATIO (0.9-2.4); AST(SGOT) 16 U/L (15-37); Alanine Aminotransfer ALT/SGPT 23 U/L (13-56); Albumin, Serum 3.6 g/dL (3.2-5.0); Alkaline Phosphatase 103 U/L (45-117); Anion Gap 5 (5-15); BUN 20 mg/dL (7-18); Calcium,Total 9.7 mg/dL (8.5-10.1); Chloride 106 mmol/L (98-107); Creatinine, Serum 1.33 mg/dL (0.55-1.02); EST Glomerular Filtration Rate 44 mL/min (>60); Est Glom Filt Rate - Afr Amer 53 mL/min (>60); Estimated Creatinine Clearance 39.07 ml/min; Globulin 4.1 g/dL (2.2-4.2); Glucose 78 mg/dL (74-106); Potassium 3.9 mmol/L (3.5-5.1); Protein, Total 7.7 g/dL (6.4-8.2); Sodium Level 139 mmol/L (136-145)
[2020-07-21] MEDS: 0.9% Normal Saline 1,000 ML 999 ML IV (14:44)
[2020-07-21] MEDS: metroNIDAZOLE 500 MG/100 ML BAG 100 MG IV (15:47)
[2020-07-21 15:53] VITALS: BP 121/84; PULSE 72; RESP 16; O2SAT 99
[2020-07-21 16:21] LABS: Bacteria 0 SEEN /hpf (None Seen); Mucous, Urine 0 SEEN /hpf (<or=2+)
[2020-07-21 16:27] LABS: Color, Urine Yellow (Yellow); Glucose, Dipstick Normal (Normal); Ketone-Dipstick 15 mg/dl (Negative); Leukocyte Esterase-Dipstick 25 /ul (Negative); Nitrite-Dipstick Negative (Negative); Occult Blood-Urine 25 /ul (Negative); Protein-Dipstick 30 mg/dl (Negative); Urine Bilirubin Dipstick Negative (Negative); Urine Clarity Sl. Cloudy (Clear); Urine Urobilinogen Normal (Normal)
[2020-07-21 16:33] LABS: Red Blood Cells-Urine 0-5 SEEN /hpf (0-5); Squamous Epithelial Cells - UA 0-5 SEEN /hpf (5-10); White Blood Cells 0-5 SEEN /hpf (0-5)
--- NOTE | 2020-07-21 16:38 | ED.DEP ---
ED Disposition - Plan for ED Patient: Instructions: ED Diverticulitis Prescriptions: Ciprofloxacin [Cipro] 500 mg PO BID #14 tablet metroNIDAZOLE [Flagyl] 500 mg PO Q8H #21 tablet Oxycodone HCl/Acetaminophen [Percocet 5/325] 1 tablet PO Q6H PRN PRN 3 Days #12 tablet PRN Reason: Pain proMETHazine tablet [Phenergan] 25 mg PO Q6H PRN PRN #10 tablet PRN Reason: Nausea Referrals: Rehana Hernandez MD [Primary Care Provider] -
[2020-07-21] MEDS: Ciprofloxacin 400 MG/200 ML BAG 200 MG IV (17:17)
[2020-07-21 17:22] VITALS: RESP 18
== END 2020-07-21 18:40 | disposition home or self-care (01) ==
LOC: ED 13:31
PROVIDERS: Emergency Provider Emergency Medicine; PCP Family Medicine
DX: K57.32 Diverticulitis of large intestine without perforation or abscess without bleeding (principal); N28.1 Cyst of kidney, acquired; K76.89 Other specified diseases of liver; J45.909 Unspecified asthma, uncomplicated
CPT/HCPCS: 74177; 80053; 81001; 85025; 96361; 96365; 96366; 96367; 96375; 96376; 99281; 99284; J7030; Q9967; A4216; J0744; J2405

== ENCOUNTER → 2020-11-07 13:10 | Outpatient (CLI) | payer BC, SELFPAY ==
--- NOTE | 2020-11-07 13:13 | BI_ITS ---
MAMMOGRAPHY - BILATERAL SCREENING REASON FOR EXAM: Female, 54 years old. Routine annual screening examination. PERTINENT HISTORY: History of prior bilateral breast reduction surgery. Prior right stereotactic breast biopsy. TECHNIQUE: Digital bilateral breast cori (3D mammographic acquisition) in the CC and MLO projections. 2-D mediolateral oblique (MLO) and craniocaudad (CC) views of both breasts were obtained. CAD: Full Field Digital Mammography with Computer Added Detection was performed. COMPARISON: Comparison is made with prior study dated 11/12/2019 and 10/16/2018. FINDINGS: Breast Composition: There are scattered areas of fibroglandular density. There are no dominant masses or suspicious calcifications. A tissue clip marker is seen in the upper midportion of the right breast. No other significant abnormalities are identified. There has been no significant change since the prior study. BI/SCRN MAMM (CAD)W/CORI BILAT IMPRESSION: Stable bilateral screening mammogram. Yearly follow-up mammogram recommended. (A) ASSESSMENT CATEGORY: BIRADS Category 2: Benign. A letter regarding these results will be sent to the patient by the facility within 30 days. Approximately 10% of breast cancers are not detected by mammography. A normal mammogram should not delay biopsy of a clinically suspicious abnormality. [id number] Electronically Signed: Brandon Burks MD at 14:27 EST , Service support ,
--- NOTE | 2020-11-07 13:15 | BD_ITS ---
STUDY: DUAL ENERGY X-RAY ABSORPTIOMETRY / DXA REASON FOR EXAM: Female, 54 years old. 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 COMPARISON: None. FINDINGS: Lumbar Spine (L1-L4): g/cm2 (1.044) / T-score (-1.1) / Z-score (-0.9) Findings are suggestive of osteopenia with a low fracture risk. Left Femur Total: g/cm2 (0.873) / T-score (-1.1) / Z-score (-1.3) Left Femoral Neck: g/cm2 (0.917) / T-score (-0.9) / Z-score (-0.7) Right Femur Total: g/cm2 (0.909) / T-score (-0.8) / Z-score (-1.0) Right Femoral Neck: g/cm2 (0.858) / T-score (-1.3) / Z-score (-1.1) BD/Dexa Bone Density Study IMPRESSION: The patient is considered osteopenic as outlined below according to World Eliud Organization (WHO) criteria with a low fracture risk. Reference Information: The T-score is the number of standard deviations above or below the standard which is normal for young adults at their peak bone mineral density. The World Health Organization (WHO) interprets the T-scores as follows: Above -1 Normal bone density Between -1 and -2.5 Osteopenia Equal to / or below -2.5 Osteoporosis As a practical clinical guideline, osteopenia may be graded as follows: Mild -1 through -1.5 Moderate -1.6 through -2.0 Severe -2.1 through -2.4 The Z-score is the number of standard deviations above or below age-matched controls. A Z-score of less than -1.5 would be considered abnormal. References: 1. NIH Osteoporosis and Related Bone Diseases www osteo.org 2. International Society for Clinical Densitometry www iscd.org 3. National Osteoporosis Foundation www nof.org Electronically Signed: Brandon Burks MD at 14:11 EST , Service support ,
--- NOTE | 2020-11-07 16:29 | RAD_ITS ---
STUDY: X-RAY - LEFT FOOT CLINICAL: Female, 54 years old. PAIN TO TOP OF FOOT. NO INJURY. TECHNIQUE: 3 view(s) of the foot. COMPARISON: Ankle 12/10/2013 FINDINGS: Bones appear osteopenic. Normal talus, calcaneus, and tarsal bones. Normal visualized subtalar, talonavicular, calcaneocuboid, tarsal and tarsometatarsal articulations. Normal metatarsi. Normal metatarsophalangeal joint of the great toe. Normal tibial and fibular sesamoid bones. Normal interphalangeal joint of the great toe. Normal phalanges of the great toe. Normal second through fifth metatarsophalangeal joints. Normal interphalangeal joints and phalanges of the lesser toes. The soft tissue structures are unremarkable. RAD/Foot min 3 Views IMPRESSION: Normal x-ray examination of the foot allowing for mild osteopenia Electronically Signed: Arelis Young MD at 23:12 EST , Service support ,
== END ==
PROVIDERS: PCP Family Medicine; Referring Provider Family Medicine; Visit Provider Family Medicine
DX: N95.9 Unspecified menopausal and perimenopausal disorder (principal); M79.672 Pain in left foot; Z12.31 Encounter for screening mammogram for malignant neoplasm of breast
CPT/HCPCS: 73630; 77063; 77067; 77080

== ENCOUNTER → 2020-11-07 | Outpatient (CLI) | payer BC, SELFPAY ==
--- NOTE | 2020-11-07 | LES_PTH ---
PATIENT: JUN SHRESTHA V LOC: [facility] U#:[id number] AGE/SX: 54/F ROOM: RE11/07/[address]: Dr. 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 AM:anam 11/09/2020 COMMENT The lesion is completely excised in the planes examined. Case has been reviewed in consultation with Dr. Null who concurs with the above diagnosis. IDC:SJ MICROSCOPIC DESCRIPTION Slides are reviewed. GROSS DESCRIPTION Received is one container labeled with the patient's name and not further designated. The specimen consists of a dark [place]cal[place] skin shave measuring 1.4 x 1.3 x 0.2 cm. The specimen is inked, serially sectioned and totally submitted in one cassette. / AM:anam 11/08/20 TC:5 CPT: 89477
== END | disposition home or self-care (01) ==
LOC: LABSPEC 11-08 06:27
PROVIDERS: PCP Family Medicine; Referring Provider Family Medicine; Visit Provider Family Medicine
DX: L98.9 Disorder of the skin and subcutaneous tissue, unspecified (principal)
CPT/HCPCS: 88305

== ENCOUNTER → 2021-07-26 11:01 | Outpatient (CLI) | payer BC, SELFPAY ==
--- NOTE | 2021-07-26 11:48 | VDLE_ITS ---
Reason For Study: PAIN RIGHT LEFT GSV is normal. CFV is compressible, spontaneous, phasic, CFV is compressible, spontaneous, phasic, competent, and demonstrates normal competent and demonstrates normal augmentation. augmentation. FV is compressible, spontaneous, phasic, competent and demonstrates normal augmentation. POP V is compressible, spontaneous, phasic, competent and demonstrates normal augmentation. T/P Trunk is compressible. PTV is compressible. RT PerV is compressible. Procedure Exam performed in department. A preliminary report was called and/or faxed to REHANA HERNANDEZ. VL/Venous Duplex US, Unilateral Interpretation Summary There is no evidence of right lower extremity deep vein thrombosis. Right great saphenous vein appears patent and compressible segmentally. Normal flow patterns left common f emoral vein Ordering Physician: Rehana Hernandez Referring Physician: Rehana Hernandez Performed By: Fior Warner RDCS, RVT
== END ==
PROVIDERS: PCP Family Medicine; Referring Provider Family Medicine; Visit Provider Family Medicine
DX: M79.604 Pain in right leg (principal)
CPT/HCPCS: 93971

== ENCOUNTER 2022-01-04 08:14 | Outpatient (CLI) | payer BC, SELFPAY ==
--- NOTE | 2022-01-03 17:00 | BI_ITS ---
MAMMOGRAPHY - BILATERAL SCREENING REASON FOR EXAM: Female, 56 years old. Routine annual screening examination. PERTINENT HISTORY: Non-contributory. History of prior bilateral breast reduction in right stereotactic breast biopsy. TECHNIQUE: Digital bilateral breast cori (3D mammographic acquisition) in the CC and MLO projections. 2-D mediolateral oblique (MLO) and craniocaudad (CC) views of both breasts were obtained. CAD: Full Field Digital Mammography with Computer Added Detection was performed. COMPARISON: Comparison is made with prior study dated 11/07/2020 and 11/12/2019. FINDINGS: Breast Composition: There are scattered areas of fibroglandular density. There are no dominant masses or suspicious calcifications. A tissue clip marker is seen in the upper midportion of the right breast. Stable small benign-appearing bilateral axillary lymph nodes. No other significant abnormalities are identified. There has been no significant change since the prior study. BI/SCRN MAMM (CAD)W/CORI BILAT IMPRESSION: Stable bilateral screening mammogram. Yearly follow-up mammogram recommended. (A) ASSESSMENT CATEGORY: BIRADS Category 2: Benign. A letter regarding these results will be sent to the patient by the facility within 30 days. Approximately 10% of breast cancers are not detected by mammography. A normal mammogram should not delay biopsy of a clinically suspicious abnormality. [id number] Electronically Signed: Brandon Burks MD at 8:45 EDT ,
== END 2022-01-04 23:59 | disposition home or self-care (01) ==
LOC: OPBI 08:14
PROVIDERS: PCP Family Medicine; Visit Provider Family Medicine
DX: Z12.31 Encounter for screening mammogram for malignant neoplasm of breast (principal)
CPT/HCPCS: 77063; 77067

== ENCOUNTER → 2022-03-21 | Outpatient (CLI) | payer BC, SELFPAY ==
[2022-03-21 18:03] LABS: Anion Gap 5 (5-15); BUN 23 mg/dL (7-18); BUN/Creat Ratio 15.6 RATIO (10-20); Calcium,Total 9.8 mg/dL (8.5-10.1); Chloride 106 mmol/L (98-107); Cholesterol 259 mg/dL (200); Creatinine, Serum 1.47 mg/dL (0.55-1.02); EST Glomerular Filtration Rate 39 mL/min (>60); Est Glom Filt Rate - Afr Amer 47 mL/min (>60); Glucose 79 mg/dL (74-106); High Density Lipoprotein 67 mg/dL; Potassium 4.5 mmol/L (3.5-5.1); Sodium Level 139 mmol/L (136-145); Triglycerides 67 mg/dL; Very Low Density Lipoprotein 13 mg/dL (5-40)
[2022-03-25 15:25] LABS: Vitamin D,25 Hydroxy 48.7 ng/mL
== END | disposition home or self-care (01) ==
LOC: MFPLAB 16:04
PROVIDERS: PCP Family Medicine; Referring Provider Family Medicine; Visit Provider Nurse Practitioner Family
DX: E78.5 Hyperlipidemia, unspecified (principal)
CPT/HCPCS: 36415; 80048; 80061; 82306

== ENCOUNTER → 2022-07-18 | Outpatient (CLI) | payer BC, SELFPAY ==
[2022-07-18 13:44] LABS: Albumin, Serum 3.5 g/dL (3.2-5.0); BUN 13 mg/dL (7-18); BUN/Creat Ratio 8.9 RATIO (10-20); Calcium,Total 9.6 mg/dL (8.5-10.1); Chloride 107 mmol/L (98-107); Creatinine, Serum 1.46 mg/dL (0.55-1.02); EST Glomerular Filtration Rate 39 mL/min (>60); Est Glom Filt Rate - Afr Amer 47 mL/min (>60); Glucose 87 mg/dL (74-106); Phosphorus 2.8 mg/dL (2.5-4.9); Potassium 4.6 mmol/L (3.5-5.1); Sodium Level 141 mmol/L (136-145)
== END | disposition home or self-care (01) ==
LOC: LAB 12:35
PROVIDERS: PCP Family Medicine; Referring Provider Internal Medicine Nephrology; Visit Provider Internal Medicine Nephrology
DX: N18.31 Chronic kidney disease, stage 3a (principal)
CPT/HCPCS: 36415; 80069

== ENCOUNTER → 2022-07-24 | Outpatient (CLI) | payer BC, SELFPAY ==
--- NOTE | 2022-07-24 18:04 | US_ITS ---
INDICATION: CKD 3 EXAMINATION: Ultrasound US Kidney(s) complete (eg, kidneys and bladder) TECHNIQUE: Woodard scale and color doppler images were obtained of the kidneys. COMPARISON: None. FINDINGS: RIGHT KIDNEY: 9.2 x 4.0 x 3.7 cm. There is no hydronephrosis. No shadowing calculus, focal lesion or perinephric collection is demonstrated. LEFT KIDNEY: 9.2 x 4.9 x 4.1 cm. There is no hydronephrosis. No shadowing calculus, focal lesion or perinephric collection is demonstrated. Cortical cyst measures up to 3.4 cm. URINARY BLADDER: No acute abnormality. Prevoid volume 138 cc''s. Postvoid volume 10 cc US/Kidney and Bladder IMPRESSION: No hydronephrosis. Electronically Signed: Robbin Wang MD at 0:10 EDT ,
== END | disposition home or self-care (01) ==
LOC: US 18:01
PROVIDERS: PCP Family Medicine; Visit Provider Internal Medicine Nephrology
DX: N18.31 Chronic kidney disease, stage 3a (principal)
CPT/HCPCS: 76770

== ENCOUNTER → 2022-09-04 | Outpatient (CLI) | payer BC, SELFPAY ==
[2022-09-04 17:31] LABS: BUN 15 mg/dL (7-18); BUN/Creat Ratio 9.3 RATIO (10-20); Calcium,Total 8.7 mg/dL (8.5-10.1); Chloride 110 mmol/L (98-107); Creatinine, Serum 1.62 mg/dL (0.55-1.02); EST Glomerular Filtration Rate 35 mL/min (>60); Est Glom Filt Rate - Afr Amer 42 mL/min (>60); Glucose 106 mg/dL (74-106); Phosphorus 2.7 mg/dL (2.5-4.9); Potassium 3.8 mmol/L (3.5-5.1); Sodium Level 142 mmol/L (136-145)
[2022-09-04 18:03] LABS: 24 Hour Urine Protein 578.2 mg/24HR (<150 MG/24HR); 24HR. UA Prot. Total Volume 2250 mL; Creat.Clear Total Volume 2250 mL; Creatinine Clearance 60 ml/min (100-200); Creatinine Serum Creat 1.6 mg/dL (0.6-1.0); Creatinine Urine 62.3 mg/dL (NO RANGE EST.); EST Glomerular Filtration Rate 35 mL/min (>60); Est Glom Filt Rate - Afr Amer 42 mL/min (>60); Urine Protein (24 Hour) 25.7 mg/dL (<11.9)
[2022-09-05 08:24] LABS: PTHIN 111.2 pg/mL (18.4-80.1)
== END | disposition home or self-care (01) ==
LOC: LAB 16:04
PROVIDERS: PCP Family Medicine; Visit Provider Internal Medicine Nephrology
DX: N18.31 Chronic kidney disease, stage 3a (principal)
CPT/HCPCS: 36415; 80069; 82575; 83970; 84156

== ENCOUNTER → 2023-01-16 | Outpatient (CLI) | payer BC, SELFPAY ==
--- NOTE | 2023-01-16 15:55 | BI_ITS ---
MAMMOGRAPHY - BILATERAL SCREENING 3-D TOMOSYNTHESIS REASON FOR EXAM: Female, 57 years old. Routine screening PERTINENT HISTORY: No significant family history. Previous reduction surgery TECHNIQUE: 2-D mammograms and 3-D Tomosynthesis of the breast (s) were performed. CAD was performed. COMPARISON: 11/07/2020 FINDINGS: The breast composition is composed of scattered fibroglandular density. Scattered benign calcifications are seen. No dense spiculated masses or suspicious microcalcifications are identified. Stable architectural distortion related to the reduction mammoplasty.. There is no skin thickening or retraction. There has been no significant change since the prior study. BI/SCRN MAMM (CAD)W/CORI BILAT IMPRESSION: No mammographic signs of malignancy. Routine yearly mammograms recommended. ASSESSMENT CATEGORY: BIRADS Category 1: Negative. A letter regarding these results will be sent to the patient by the facility within 30 days. FOLLOW UP RECOMMENDATION: Yearly follow up mammogram recommended. (A) Approximately 10% of breast cancers are not detected by mammography. A normal mammogram should not delay biopsy of a clinically suspicious abnormality. Electronically Signed: Rian Ibrahim MD at 7:48 EDT ,
== END | disposition home or self-care (01) ==
PROVIDERS: PCP Family Medicine; Referring Provider Family Medicine; Visit Provider Family Medicine
DX: Z12.31 Encounter for screening mammogram for malignant neoplasm of breast (principal)
CPT/HCPCS: 77063; 77067

== ENCOUNTER 2023-08-07 11:53 | Inpatient (IN) | payer BC, SELFPAY ==
[2023-08-07 11:53] VITALS: BP 153/81; PULSE 89; RESP 18; TEMP 36.6; O2SAT 100; BMI 28.7
--- NOTE | 2023-08-07 12:07 | CT_ITS ---
STUDY: CT ABDOMEN AND PELVIS WITH CONTRAST REASON FOR EXAM: Female, 57 years old. LLQ abd pain. History of diverticulitis. Stage III chronic renal disease. RADIATION DOSAGE (If Supplied By Facility): CTDIvol = ( 14.92 ) mGy, DLP = ( 903.44 ) mGycm TECHNIQUE: Transaxial images were obtained from the dome of the diaphragm to the symphysis pubis without oral contrast. IV 100mL Isovue-300 was administered. Sagittal and coronal images were reconstructed. Individualized dose optimization techniques were used for this CT. COMPARISON: Comparison is made with prior study dated July 21, 2020. FINDINGS: The visualized lung bases are unremarkable. The visualized portions of the heart are within normal limits. There is a 2 cm x 1.8 cm cyst in the lower aspect of the right lobe of the liver. Normal gallbladder and extrahepatic biliary system. Normal spleen. Normal pancreas. Normal bilateral adrenal glands. Normal right kidney. There is a 3 cm x 2 cm cyst in the upper pole of the left kidney. Normal visualized stomach. Normal small intestine. There is diverticulosis, with thickening of the colon wall, and pericolonic inflammation changes consistent with acute diverticulitis. Small amount of fluid is seen in the sigmoid mesentery. The appendix is visualized and appears normal. There is scattered atherosclerotic calcification of the abdominal aorta, without a demonstrated aneurysm. Normal inferior vena cava. Normal retroperitoneum. Normal urinary bladder. There is absence of the uterus consistent with a prior hysterectomy. Normal abdominal wall. Straightening of the normal lumbar lordosis. Mild degree of disc space narrowing. CT/Abdomen/Pelvis W IV Cont ONLY IMPRESSION: Sigmoid diverticulosis with acute sigmoid diverticulitis. A small amount of fluid is seen in the sigmoid mesentery as well as increased markings in the surrounding peritoneal fat. No focal abscess is seen at this time. Stable cyst in the right lobe of the liver as well as stable left renal cyst. Electronically Signed: Brandon Burks MD at 13:07 EDT ,
--- NOTE | 2023-08-07 12:09 | EDS_ITS ---
HPI HPI - GI History of Present Illness Chief Complaint: Abd Pain Detail of Chief Complaint: Left lower quadrant abdominal pain for 4 days. Informant: patient Abdominal Pain/Flank Pain Onset: Days Context: Gradual Onset Timing: Continuous Quality: Stabbing Location: LLQ Current Severity: Moderate Maximum Severity: Severe Worsened by: Car ride Relieved by: Nothing Nausea/Vomiting/Emesis GI Symptom: Positive for Nausea Onset: Days Severity: Mild Diarrhea/Melena/Hematochezia GI Symptom: Negative for Diarrhea, Melena or Hematochezia Associated Symptoms Associated Symptoms: Negative for Dysuria, Frequency, Hematuria or Urgency Narrative Narrative: 57-year-old female history of prior diverticulitis, renal insufficiency and prior hysterectomy with bilateral ovaries resected. States since Friday she has had increasing left lower quadrant abdominal pain like when she had prior diverticulitis. Saw her primary care physician referred to the emergency department today. She has had nausea but no vomiting or diarrhea. No dysuria. Fever at home as high as 101. Other than her hysterectomy she has had no other prior abdominal or pelvic surgeries. Prior similar symptoms: Yes Recent Illness/Hospitalization: No PFSH PFSH Medical History Abdominal pain Anxiety Chronic kidney disease, stage 3 Home Medications [id number] ac 400 mcg-calcium carb 500 mg-vit K1 20 mcg tablet 1 ea PO DAILY supplement 07/28/19 [History Last Taken Unknown] vit C,E,zinc,copper-dwjlp8w 250 mg-lutein 5 mg-zeaxanthin 1 mg capsule 1 ea PO DAILY supplement 07/28/19 [History Last Taken Unknown] diazepam 2 mg tablet (Valium) 2 mg PO BID PRN anxiety #3 tabs 02/03/20 [Rx Last Taken Unknown] atorvastatin 20 mg tablet 20 mg PO QHS 04/11/20 [History Last Taken Unknown] duloxetine 60 mg capsule,delayed release 60 mg PO DAILY 04/11/20 [History Last Taken Unknown] ciprofloxacin HCl 500 mg tablet 500 mg PO BID #14 tabs 07/21/20 [Rx Last Taken Unknown] metronidazole 500 mg tablet 500 mg PO Q8H #21 tabs 07/21/20 [Rx Last Taken Unknown] promethazine 25 mg tablet 25 mg PO Q6H PRN PRN Nausea #10 tabs 07/21/20 [Rx Last Taken Unknown] Allergy/AdvReac Type Severity Reaction Status Date / Time albuterol Allergy Shortness Verified 08/07/23 11:53 of breath morphine Allergy Rash Verified 08/07/23 11:53 Penicillins Allergy Hives Verified 08/07/23 11:53 Surgical History S/P colonoscopy s/p fibroid removal S/P hysterectomy S/P tonsillectomy and adenoidectomy Status post breast reduction Status post surgical removal of ganglion cyst Social History Smoking Status: Former smoker alcohol intake: never ROS ROS ED ROS Narrative Left lower quadrant abdominal pain. Nausea. Fever. Review of Systems ROS Unobtainable: Denies due to encephalopathy Constitutional Constitutional ED: Reports fever(s) ENT ENT ED: Denies ear pain Cardiovascular Cardiovascular: Denies chest pain Respiratory/Chest Respiratory/Chest: Denies cough or dyspnea Gastrointestinal Gastrointestinal: Reports abdominal pain Genitourinary Genitourinary ED: Denies dysuria or hematuria Musculoskeletal Musculoskeletal: Denies arthralgias or back pain Integumentary Denies abscess Neurologic Neurologic: Denies headache(s) Psychiatric Psychiatric: Denies anxiety Endocrine Endocrinology: Denies polydipsia Hematologic/Lymphatic Hematologic/Lymphatic: Denies easy bleeding Allergic/Immunologic Allergic/Immunologic ED: Denies mouth swelling, tongue swelling or urticaria EXAM Physical Exam Narrative Exam Narrative: 37-year-old female vital signs stable afebrile. Complaint left lower quadrant abdominal pain. H EENT exam unremarkable. Neck nontender. Lungs clear. Heart regular rhythm rate about 90. Abdomen soft, nondistended, normal bowel sounds. She is squeezing tenderness left lower quadrant. There is no rebound. She does have mild guarding. Upper quadrants and right lower quadrant are nontender. No hernia or mass. No distention. Moving all 4 extremities. Nontender no edema. Back nontender. Neurologically she is awake and alert. Const Vital Signs: 08/07/23 11:53 Temperature 97.8 F Temperature Source Temporal Pulse Rate 89 Respiratory Rate 18 Blood Pressure 153/81 H Blood Pressure Mean 105 Pulse Ox 100 Oxygen Delivery Method Room Air Positive well nourished and well developed; Negative for cachectic, contractures or unkempt General Appearance ED: well developed and NAD; Negative for unkempt, cachectic, contractures or pallor Nutritional Appearance: Negative for cachectic HEENT Reports moist mucous membranes normocephalic and atraumatic; Negative for trauma or tenderness Eyes PERRL and EOMs intact bilaterally General Eye ED: Negative for pale conjunctiva or scleral icterus Neck no lymphadenopathy, supple and no JVD General: Negative for tenderness Carotids: Negative for other Lymph Lymphatic: Negative for other Resp normal respiratory effort and clear to auscultation bilaterally Effort and Inspection: Negative for respiratory distress Auscultation: Negative for rales, rhonchi or wheezes Cardio regular rate, regular rhythm, S1 normal heart sound, S2 normal heart sound and no murmurs Rate: Negative for bradycardia or tachycardic Rhythm: Negative for abnormal rhythm GI non-distended and no masses; Negative for non-tender GI Narrative: Left lower quadrant tenderness only. Inspection: Negative for abdominal distention Auscultation: normoactive bowel sounds Palpation: soft, tender and guarding; Negative for rigid, hepatomegaly, splenomegaly, hernia, mass, pulsatile mass or rebound tenderness present Back/Spine no CVA tenderness General Back: Negative for CVA tenderness Cervical Spine: Negative for cervical spine tenderness Thoracic Spine / Upper Back: Negative for thoracic spinal tenderness Lumbar Spine / Lower Back: Negative for lumbar spinal tenderness Extremity General Extremety ED: Negative for edema or tenderness General Extremity: Negative for edema Neuro CN's II-XII intact bilaterally and moves all extremities Sensorium / Orientation: alert, oriented to person, oriented to place and oriented to time; Negative for orientation impaired, confused or lethargic Motor Exam: strength 5/5 throughout Psych mental status grossly normal and thought process normal Appearance: Negative for unkempt Attitude: No agitated Mood & Affect: Negative for depressed, anxious or tearful Skin General Skin Exam: Negative for jaundice or pallor Lesions: No no lesions Rashes: no rashes Trauma: Negative for abrasion Nails: Negative for discolored MDM MDM MDM Narrative Medical decision making narrative: For 7-year-old with left lower quadrant abdominal pain which is most likely secondary diverticulitis rule out microperforate abscess versus other etiologies. CAT scan and labs. She will be treated with IV Dilaudid for pain and Zofran for nausea. History & Record Review Discussion w/independent historian: Patient Additional record(s) reviewed:: Prior inpatient record, Prior outpatient record, Prior ED visit and Prior labs Lab Data Attestation: I reviewed the patient's lab results. Lab results narrative: BC is unremarkable. White count of 7. H&H 15 and 47. Platelets 315. Electrolytes unremarkable gap of 5 BUN and creatinine is 17 and 1.56. Glucose 86. Abdominal CAT scan shows acute sigmoid diverticulitis. No abscess. No perforation. Read by the radiologist. Labs: Laboratory Results - last 24 hr 08/07/23 12:20 WBC 7.2 RBC 5.32 Hgb 15.6 H Hct 47.3 H MCV 88.9 MCH 29.3 MCHC 33.0 RDW Std Deviation 44.3 H RDW Coeff of Darlene 13.6 Plt Count 315 MPV 8.6 Immature Gran % (Auto) 0.300 Neut % (Auto) 61.7 Lymph % (Auto) 27.8 Branch % (Auto) 8.4 Eos % (Auto) 1.1 Baso % (Auto) 0.7 Absolute Neuts (auto) 4.4 Absolute Lymphs (auto) 1.99 Nucleated RBC % 0 Sodium 140 Potassium 4.2 Chloride 109 H Carbon Dioxide 26.0 Anion Gap 5 BUN 17 Creatinine 1.56 H Estim Creat Clear Calc 32.12 Est GFR (MDRD) Af Amer 44 L Est GFR (MDRD) Non-Af 36 L BUN/Creatinine Ratio 10.9 Glucose 86 Calcium 9.9 Radiography Diagnostic Testing: Clinical Impression(s) from Imaging Studies Abdomen/Pelvis CT 08/07/23 12:07 IMPRESSION: Sigmoid diverticulosis with acute sigmoid diverticulitis. A small amount of fluid is seen in the sigmoid mesentery as well as increased markings in the surrounding peritoneal fat. No focal abscess is seen at this time. Stable cyst in the right lobe of the liver as well as stable left renal cyst. Electronically Signed: Brandon Burks MD at 13:07 EDT , Discharge Plan Triage Chief Complaint: Abd Pain ED Provider: Alexis Shultz Dx/Rx/DC Orders Clinical Impression: Sigmoid diverticulitis, Chronic kidney insufficiency, Abdominal pain Prescriptions: No Action diazepam [Valium] 2 mg tablet 2 mg PO BID PRN (Reason: anxiety) Qty: 3 0RF Rx Instructions: take one tab one hour before, 30 mins before mri C,E,zinc,copper [id number] 1 EACH capsule 1 ea PO DAILY gb-vxg-halge-calcium carb-K1 1 EACH tablet 1 ea PO DAILY atorvastatin 20 MG tablet 20 mg PO QHS duloxetine 60 MG capsule,delayed release(DR/EC) 60 mg PO DAILY ciprofloxacin HCl 500 MG tablet 500 mg PO BID Qty: 14 0RF metronidazole 500 MG tablet 500 mg PO Q8H Qty: 21 0RF promethazine 25 MG tablet 25 mg PO Q6H PRN PRN (Reason: Nausea) Qty: 10 0RF Primary Care Provider: Rehana Hernandez Referrals: Rehana Hernandez MD [Primary Care Provider] - Disposition Disposition: Acute Care Hospital [facility]
[2023-08-07 12:26] LABS: Absolute Lymphocyte Count 1.99 X10^3/uL (0.83-4.51); Absolute Neutrophil Count 4.4 X10^3/uL (2.0-7.7); Basophil# 0.05 X10^3/uL; Basophil% 0.7 % (0-1); Eosinophil# 0.08 X10^3/uL; Eosinophils% 1.1 % (0-5); Hematocrit 47.3 % (37-47); Hemoglobin 15.6 g/dL (12.0-15.0); Lymphocyte # 1.99 X10^3/ul (0.83-4.51); Lymphocyte % 27.8 % (19-41); Mean Corpuscular Hgb 29.3 pg (27.0-32.0); Mean Corpuscular Volume 88.9 fL (81-99); Mean Platelet Vol. 8.6 fl (6.2-12.0); Monocyte% 8.4 % (0-10); NRBC Flagged by Analyzer 0 % (0-5); Neutrophil # 4.42 X10^3/uL (2.7-7.7); Neutrophil % 61.7 % (47-70); Platelet Count 315 K/mm3 (150-450); RBC Distribution Width CV 13.6 % (11.6-14.6); RBC Distribution Width SD 44.3 fl (35.1-43.9); Red Blood Count 5.32 M/mm3 (4.2-5.4); White Blood Count 7.2 K/mm3 (4.4-11.0)
[2023-08-07] MEDS: Ondansetron 4 MG/2 ML Vial IV ×2 (12:29→20:07)
[2023-08-07] MEDS: HYDROmorphone 1 MG/ML Syringe IV ×2 (12:29→15:16)
[2023-08-07 12:38] LABS: Anion Gap 5 (5-15); BUN 17 mg/dL (7-18); BUN/Creat Ratio 10.9 RATIO (10-20); Calcium,Total 9.9 mg/dL (8.5-10.1); Chloride 109 mmol/L (98-107); Creatinine, Serum 1.56 mg/dL (0.55-1.02); EST Glomerular Filtration Rate 36 mL/min (>60); Est Glom Filt Rate - Afr Amer 44 mL/min (>60); Estimated Creatinine Clearance 32.12 ml/min; Glucose 86 mg/dL (74-106); Potassium 4.2 mmol/L (3.5-5.1); Sodium Level 140 mmol/L (136-145)
[2023-08-07 15:14] VITALS: BP 135/74; PULSE 75; RESP 14; O2SAT 98
[2023-08-07] MEDS: metroNIDAZOLE 500 MG Tablet PO (15:16)
[2023-08-07] MEDS: Ciprofloxacin 500 MG Tablet PO (15:16)
--- NOTE | 2023-08-07 16:26 | HP.PCM.HOS_ITS ---
[facility] - General General Date of Admission: 08/07/23 Date of Service: 08/07/23 Chief Complaint: Abdominal Pain, Nausea and Vomiting. [facility] Bryan SHRESTHA, is a 57 F with a past medical history of recurrent sigmoid diverticulitis, mild intermittent asthma, glaucoma, chronic renal insufficiency; stage III, overweight; with BMI of 28.7 this admission and history of fibroidectomy with eventual total abdominal hysterectomy with bilateral salpingo-oophorectomy who presents to [facility] complaining of abdominal pain nausea vomiting. She reports her symptoms began approximately 3 to 4 days prior to admission on Friday, July with the gradual-onset of LLQ abdominal pain that was initially moderate but then became increasingly worse with pain exacerbated by palpation and movement and was made better by nothing. She describes the pain as severe, stabbing and continuous with pain also made worse by nausea and vomiting with bilious emesis with a fever of 101 ?F and patient unable to tolerate her oral antibiotic medications. He admits her symptoms are ominously similar to her previous bouts of acute sigmoid d iverticulitis with at least 4 episodes within the last few years. She denies diarrhea melena or hematochezia. She also denies urinary frequency dysuria hematuria or urgency. In the ER her CT scan of the abdomen pelvis was positive for Acute Sigmoid Diverticulitis without evidence of abscess or rupture and she was then admitted to the general medical floor for ongoing care for status expected to extend beyond 48 hours. [facility] Medical History Abdominal pain Anxiety Chronic kidney disease, stage 3 Home Medications [id number]-ike-blinb ac 400 mcg-calcium carb 500 mg-vit K1 20 mcg tablet 1 ea PO DAILY supplement 07/28/19 [History Last Taken Unknown] calcifediol 30 mcg capsule,24 hr,extended release (Rayaldee) 30 mcg PO DAILY DEFICIENCY 08/07/23 [History Last Taken Unknown] dapagliflozin propanediol 10 mg tablet (Farxiga) 10 mg PO QHS KIDNEY 08/07/23 [History Last Taken Unknown] levalbuterol HCl 1.25 mg/3 mL solution for nebulization 1.25 mg inhalation PRN ASTHMA 08/07/23 [History Last Taken Unknown] tafluprost (PF) 0.0015 % eye drops in a dropperette 1 drp ophthalmic (eye) QHS 08/07/23 [History Last Taken Unknown] Allergy/AdvReac Type Severity Reaction Status Date / Time albuterol Allergy Shortness Verified 08/07/23 11:53 of breath morphine Allergy Rash Verified 08/07/23 11:53 Penicillins Allergy Hives Verified 08/07/23 11:53 Surgical History S/P colonoscopy s/p fibroid removal S/P hysterectomy S/P tonsillectomy and adenoidectomy Status post breast reduction Status post surgical removal of ganglion cyst Social History Smoking Status: Former smoker alcohol intake: never ROS ROS Narrative General: Did have fever HENT: Denies headache, denies stuffy nose, denies sore throat EYES: Denies changes in vision Resp: Denies cough, denies shortness of breath Cardiac: Denies chest pain GI: She admits to severe, stabbing abdominal pain, with nausea and vomitng : Denies changes in urination Extremity: Denies swelling Musculoskeletal: Feels somewhat generally weak and unwell Neuro: Denies any numbness/tingling Heme: Denies any bleeding or bruising Skin: Denies rashes Psychiatric: No complaints voiced Endocrine: No polyuria The rest of the 14 point ROS was negative except for positives in HPI. Vital Signs Vital Signs Vital Signs: 08/07/23 11:53 08/07/23 15:14 Temperature 97.8 F Temperature Source Temporal Pulse Rate 89 75 Respiratory Rate 18 14 Blood Pressure 153/81 H 135/74 H Blood Pressure Mean 105 94 Pulse Ox 100 98 Oxygen Delivery Method Room Air Room Air Weight Weight: 162 lb Body Mass Index (BMI) 28.7 Physical Exam Const alert and oriented x3 General Appearance: cooperative HEENT normocephalic, head/scalp atraumatic and hearing grossly normal bilaterally Eyes PERRL, EOMs intact bilaterally and conjunctivae normal Neck no lymphadenopathy, supple, no JVD and no carotid bruits Resp normal respiratory effort, no retractions, no use of accessory muscles and clear to auscultation bilaterally Cardio regular rate, regular rhythm, S1 normal heart sound and S2 normal heart sound GI GI Narrative: Patient is diffusely tender in the left lower quadrant with mildly increased bowel sounds. Palpation: tender Extremity normal to inspection, full ROM and no clubbing, cyanosis or edema Neuro oriented x3, CN's II-XII intact bilaterally, moves all extremities and no focal motor deficits Sensorium / Orientation: awake, alert, oriented to person, oriented to place and oriented to time Speech: speech normal Motor Exam: strength 5/5 throughout Psych Psych Narrative: Patient is anxious because this is her fourth severe episode. Mood & Affect: anxious Results Medical Records Data Attestation: I reviewed the patient's medical records Lab / Micro Data 08/07/23 12:20 08/07/23 12:20 Labs: Laboratory Results - last 24 hr 08/07/23 12:20: WBC 7.2, RBC 5.32, Hgb 15.6 H, Hct 47.3 H, MCV 88.9, MCH 29.3, MCHC 33.0, RDW Std Deviation 44.3 H, RDW Coeff of Darlene 13.6, Plt Count 315, MPV 8.6, Immature Gran % (Auto) 0.300, Neut % (Auto) 61.7, Lymph % (Auto) 27.8, [place] % (Auto) 8.4, Eos % (Auto) 1.1, Baso % (Auto) 0.7, Absolute Neuts (auto) 4.4, Absolute Lymphs (auto) 1.99, Nucleated RBC % 0, Sodium 140, Potassium 4.2, Chloride 109 H, Carbon Dioxide 26.0, Anion Gap 5, BUN 17, Creatinine 1.56 H, Estim Creat Clear Calc 32.12, Est GFR (MDRD) Af Amer 44 L, Est GFR (MDRD) Non-Af 36 L, BUN/Creatinine Ratio 10.9, Glucose 86, Calcium 9.9 Radiology Impression Abdomen/Pelvis CT 08/07/23 12:07 IMPRESSION: Sigmoid diverticulosis with acute sigmoid diverticulitis. A small amount of fluid is seen in the sigmoid mesentery as well as increased markings in the surrounding peritoneal fat. No focal abscess is seen at this time. Stable cyst in the right lobe of the liver as well as stable left renal cyst. Electronically Signed: Brandon Burks MD at 13:07 EDT , Assessment & Plan Assessment/Plan (1) Sigmoid diverticulitis: PLAN: Plan 1. Acute sigmoid diverticulitis; recurrent -admit to general medical floor. Continue IV Cipro and IV Flagyl begun in the ER given patient's penicillin allergy history. We will volume resuscitate with normal saline at 125 cc/h. She will be treated with as needed Dilaudid 0.5 mg IV every 4 hours as needed for severe 6-10 pain. Will be treated with Zofran IV as needed nausea. She will be treated with Tylenol for fever greater than 101 ?F or mild to moderate pain 1-5. Finally, we will consult Dr. Moralez of general surgery to evaluate thi s patient this admission for consideration regarding potential future semielective sigmoidectomy with consultation appreciated in advance. 2. Chronic renal insufficiency; stage III with baseline creatinine of approximately 1.5-1.6 -give IV fluids and recheck BMP in the a.m. to ensure continued stability. Avoid potentially nephrotoxic medications. 3. Overweight with a BMI of 28.7 this admission -weight loss will be recommended. 4. Glaucoma - Continue eyedrops as previous. 5. Mild intermittent asthma - Stable with no evidence of flare at this time. Continue as needed nebulizers. 6. History of fibroidectomy with subsequent total abdominal hysterectomy with bilateral salpingo-oophorectomy - noted. 7. DVT prophylaxis-Lovenox 40 mg subcu daily. Total Time: Approximately 55 minutes. Charges/Coding Multi Select Codes Visit Charges Visit Charges: 04726 Init Hosp L2
[2023-08-07 17:00] VITALS: BP 124/65; PULSE 73; RESP 12; O2SAT 99
[2023-08-07 18:26] VITALS: BMI 28.2
[2023-08-07 18:31] VITALS: BP 109/59; PULSE 72; RESP 16; TEMP 36.9; O2SAT 100
[2023-08-07] MEDS: 0.9% Saline Lock 10 ML Syringe IV (19:55)
[2023-08-07] MEDS: HYDROmorphone 0.5 MG/0.5 ML SYRINGE IV (19:55)
[2023-08-07] MEDS: 0.9% Normal Saline (1000mL) 1,000 ML 125 ML IV (19:55)
[2023-08-07] MEDS: Enoxaparin 40 MG/0.4 ML Syringe SC (20:08)
[2023-08-07] MEDS: Latanoprost 0.005% 1 Bottle 1 DRP OPHTHALMIC (20:17)
[2023-08-07 20:38] VITALS: BP 118/60; PULSE 70; RESP 18; TEMP 37.1; O2SAT 97
[2023-08-07] MEDS: Ciprofloxacin 200 MG/100 ML BAG 100 MG IV (20:49)
[2023-08-07] MEDS: metroNIDAZOLE 500 MG/100 ML BAG 100 MG IV (23:02)
[2023-08-08 00:38] VITALS: BP 113/62; PULSE 83; RESP 18; TEMP 37; O2SAT 98
[2023-08-08] MEDS: 0.9% Saline Lock 10 ML Syringe IV (00:42)
[2023-08-08] MEDS: HYDROmorphone 0.5 MG/0.5 ML SYRINGE IV ×2 (00:43→05:21)
[2023-08-08 04:07] VITALS: BP 118/81; PULSE 71; RESP 18; TEMP 37.2; O2SAT 96
[2023-08-08] MEDS: 0.9% Normal Saline (1000mL) 1,000 ML 125 ML IV ×3 (04:10→22:50)
[2023-08-08] MEDS: metroNIDAZOLE 500 MG/100 ML BAG 100 MG IV ×3 (05:21→20:47)
[2023-08-08] MEDS: Ondansetron 4 MG/2 ML Vial IV ×5 (05:30→22:07)
[2023-08-08 07:09] LABS: Absolute Lymphocyte Count 1.38 X10^3/uL (0.83-4.51); Absolute Neutrophil Count 4.9 X10^3/uL (2.0-7.7); Basophil# 0.05 X10^3/uL; Basophil% 0.7 % (0-1); Eosinophil# 0.04 X10^3/uL; Eosinophils% 0.6 % (0-5); Hematocrit 40.9 % (37-47); Lymphocyte # 1.38 X10^3/ul (0.83-4.51); Lymphocyte % 19.4 % (19-41); Mean Corp Hgb Conc 31.8 g/dL (32-36); Mean Corpuscular Hgb 29.8 pg (27.0-32.0); Mean Corpuscular Volume 93.8 fL (81-99); Mean Platelet Vol. 8.9 fl (6.2-12.0); Monocyte# 0.75 X10^3/uL; Monocyte% 10.5 % (0-10); NRBC Flagged by Analyzer 0 % (0-5); Neutrophil # 4.87 X10^3/uL (2.7-7.7); Neutrophil % 68.5 % (47-70); Platelet Count 278 K/mm3 (150-450); RBC Distribution Width CV 13.9 % (11.6-14.6); RBC Distribution Width SD 48.2 fl (35.1-43.9); Red Blood Count 4.36 M/mm3 (4.2-5.4); White Blood Count 7.1 K/mm3 (4.4-11.0)
--- NOTE | 2023-08-08 07:26 | PN.HOSP_ITS ---
Reason for Visit Reason for Visit: Diagnoses Diverticulitis of large intestine without perforation or abscess without bleedi ng (08/07/23) Subjective Subjective Patient is a 57-year-old lady with previous history of diverticulitis who presented with abdominal pain. CT of the abdomen and pelvis obtained on admission demonstrated sigmoid diverticulosis with acute sigmoid diverticulitis. Admitted to regular nursing floor for further management Objective Data Objective Data Vital Signs: Vital Signs Temp Pulse Resp BP Pulse Ox O2 Del Method 99.0 F 71 18 118/81 H 96 Room Air 08/08/23 04:07 08/08/23 04:07 08/08/23 04:07 08/08/23 04:07 08/08/23 04:07 08/08/23 04:07 Oxygen Delivery Method Room Air Weight: 72.3 kg Body Mass Index (BMI) 28.2 Intake & Output: Intake and Output for Last 24 Hours 08/06/23 08/07/23 08/08/23 23:59 23:59 23:59 Intake Total 100 / 100 1200 / 1200 Balance 100 / 100 1200 / 1200 Lab / Micro Data 08/08/23 06:25 08/08/23 06:25 Labs: Laboratory Results - last 24 hr 08/07/23 12:20: WBC 7.2, RBC 5.32, Hgb 15.6 H, Hct 47.3 H, MCV 88.9, MCH 29.3, MCHC 33.0, RDW Std Deviation 44.3 H, RDW Coeff of Darlene 13.6, Plt Count 315, MPV 8.6, Immature Gran % (Auto) 0.300, Neut % (Auto) 61.7, Lymph % (Auto) 27.8, [place] % (Auto) 8.4, Eos % (Auto) 1.1, Baso % (Auto) 0.7, Absolute Neuts (auto) 4.4, Absolute Lymphs (auto) 1.99, Nucleated RBC % 0, Sodium 140, Potassium 4.2, [place] 109 H, Carbon Dioxide 26.0, Anion Gap 5, BUN 17, Creatinine 1.56 H, Estim Creat Clear Calc 32.12, Est GFR (MDRD) Af Amer 44 L, Est GFR (MDRD) Non-Af 36 L, BUN/Creatinine Ratio 10.9, Glucose 86, Calcium 9.9 08/08/23 06:25: WBC 7.1, RBC 4.36, Hgb 13.0, Hct 40.9, MCV 93.8 D, MCH 29.8, MCHC 31.8 L, RDW Std Deviation 48.2 H, RDW Coeff of Darlene 13.9, Plt Count 278, MPV 8.9, Immature Gran % (Auto) 0.300, Neut % (Auto) 68.5, Lymph % (Auto) 19.4, [place] % (Auto) 10.5 H, Eos % (Auto) 0.6, Baso % (Auto) 0.7, Absolute Neuts (auto) 4.9, Absolute Lymphs (auto) 1.38, Nucleated RBC % 0 Radiography Diagnostic Testing: Radiology Impression Abdomen/Pelvis CT 08/07/23 12:07 IMPRESSION: Sigmoid diverticulosis with acute sigmoid diverticulitis. A small amount of fluid is seen in the sigmoid mesentery as well as increased markings in the surrounding peritoneal fat. No focal abscess is seen at this time. Stable cyst in the right lobe of the liver as well as stable left renal cyst. Electronically Signed: Brandon Burks MD at 13:07 EDT , Physical Exam Narrative GENERAL: cooperative HEENT: Atraumatic; normocephalic EYES; Anicteric, Normal Conjunctiva NECK; supple, normal thyroid, RESPIRATORY: Diminished to auscultation CARDIOVASCULAR: Regular S1 S2, GI: soft, normoactive bowel sounds, LLQ tenderness : No Renal angle tenderness; EXTREMITIES: No edema, no clubbing, MUSCULOSKELETAL: no muscle wasting NEURO: Awake; no lateralizing signs. SKIN: No Rash PSYCH; Flat affect Assessment & Plan Assessment/Plan (1) Sigmoid diverticulitis: PLAN: Plan Patient is a 57-year-old lady with previous history of diverticulitis who presented with abdominal pain. CT of the abdomen and pelvis obtained on admission demonstrated sigmoid diverticulosis with acute sigmoid diverticulitis. Admitted to regular nursing floor for further management 1. Acute sigmoid diverticulitis ? Admitted to regular nursing floor management Cipro and Flagyl in addition to pain management and IV fluid consult was placed to general surgery 2. Chronic kidney disease stage III ? Kidney function at baseline 3. Mild intermittent asthma ? Did continue patient bronchodilator treatment regimen 4. Glaucoma ? Did continue with eyedrops as previously prescribed 5. DVT prophylaxis ? SC Lovenox Time spent in the patient's overall evaluation,decision-making process, review of diagnostic data, adjustment of management, discussion with other providers, nursing nursing and ancillary staff involved in patient's care documentation, 40 Minutes Charges/Coding Visit Charges Inpatient E&M: 63433 Subs Hosp L2
[2023-08-08 07:44] LABS: ALB/GLOB Ratio 0.8 RATIO (0.9-2.4); AST(SGOT) 11 U/L (15-37); Alanine Aminotransfer ALT/SGPT 14 U/L (13-56); Albumin, Serum 2.8 g/dL (3.2-5.0); Alkaline Phosphatase 95 U/L (45-117); Anion Gap 8 (5-15); BUN 16 mg/dL (7-18); BUN/Creat Ratio 10.3 RATIO (10-20); Calcium,Total 8.8 mg/dL (8.5-10.1); Chloride 111 mmol/L (98-107); Creatinine, Serum 1.56 mg/dL (0.55-1.02); EST Glomerular Filtration Rate 36 mL/min (>60); Est Glom Filt Rate - Afr Amer 44 mL/min (>60); Estimated Creatinine Clearance 32.12 ml/min; Globulin 3.5 g/dL (2.2-4.2); Glucose 93 mg/dL (74-106); Protein, Total 6.3 g/dL (6.4-8.2); Sodium Level 141 mmol/L (136-145)
[2023-08-08] MEDS: Acetaminophen 325 MG Tablet 650 MG PO (07:47)
[2023-08-08 08:49] VITALS: BP 99/63; PULSE 83; RESP 16; TEMP 36.8; O2SAT 99
[2023-08-08] MEDS: HYDROmorphone 1 MG/ML Syringe IV ×4 (09:25→22:07)
[2023-08-08] MEDS: Ciprofloxacin 200 MG/100 ML BAG 100 MG IV ×2 (09:32→22:09)
[2023-08-08] MEDS: Enoxaparin 40 MG/0.4 ML Syringe SC (09:34)
--- NOTE | 2023-08-08 10:15 | CASEMGMT ---
HEIDI HINTON Assessment: Face to Face with pt for initial transition planning/care coordination assessment. RN MARY JANE introduced self and role at [facility], pt voices understanding and consents to assessment. Pt is A&O x4 and answers all questions appropriately at this time. Pt sitting up in bed in no distress. Care providers, pharmacy, and demographics verified/updated. Admitting Dx: acute sigmoid diverticulitis PCP:David Specialists:nelida Eaton; fidelia Bosch Preferred Pharmacy: [facility] on . Insurance: [place] Prescription Benefit: yes LNOK: Shelby Valdez, sister Living Arrangements: Pt lives alone in a split level home with 1 step to enter. Pt reports she is I in ADL's and denies concerns at home. Transportation: Pt drives self and denies concerns with transportation. DME:Denies HHC/SNF: Denies hx of Pt states no concerns with going home at time of dc. Pt states no further concerns/needs. CM to follow. Advised pt to ask CM if any further question/concerns/needs arise, voices understanding. Pt Goal: Home Plan: Home
[2023-08-08 11:52] VITALS: BP 99/45; PULSE 80; RESP 16; TEMP 36.3; O2SAT 100
[2023-08-08 15:38] VITALS: BP 110/63; PULSE 58; RESP 16; TEMP 36.4; O2SAT 98
--- NOTE | 2023-08-08 15:51 | CON.PCM.SX_ITS ---
Assessment & Plan Assessment/Plan (1) Sigmoid diverticulitis: PLAN: This is a 57-year-old female with a history of recurrent, acute, unco mplicated diverticulitis who is admitted for management of her fourth episode. Notably she has no elevation of her white blood cell count and CT imaging confirms this diagnosis. I held a rather lengthy, detailed conversation with patient regarding the natural history of diverticulitis and the options for management?including elective colectomy once she is feeling better. At this time, I agree with a conservative course of management and recommend that she trial clear liquids with some protein supplementation and continue IV antibiotics. Would then plan to transition to oral antibiotics with hopeful improvements in her abdominal exam. I shared that then we could plan for outpatient follow-up and repeat colonoscopy in about 6 weeks. Patient was appreciative of information about diverticulitis, generally, and those questions are answered specifically to her case. Surgery will continue to follow. HPI Consult Data Date of Consult: 08/08/23 HPI Narrative Reason for Consultation: Recurrent acute uncomplicated diverticulitis HPI Narrative: JUN SHRESTHA, is a 57 F who presents to [facility] with complaints of what appears to be her fourth episode of acute, uncomplicated diverticulitis. She reports that her last episode was in October of this year. She reports her present discomfort began approximately 5 days ago with progressive left lower quadrant pain that has been described as razor blades in the left lower quadrant. She also notes a queasy feeling with eating and some pressure with urination. She also reports some associated fevers 2 days ago. Patient's ER work-up was notable for CBC that showed normal white blood cell count and CT imaging of the abdomen pelvis showed evidence of acute, uncomplicated diverticulitis. Patient states that her first episode of diverticulitis was diagnosed in either 2018 or 2019 and required an inpatient admission, however, subsequent episodes have been treated as an outpatient. She states that it takes about 2 weeks for her to recover fully. She denies any history of chronic constipation and reports that her bowel movements normally occur 2-3 times per day. She also reports trying to eat a healthy diet, drinking lots of water, minimizing seating and not intake, and minimizing intake of red meats. Patient reports a colonoscopy in [address] Willams. She states there were no significant findings. There is no family history of GI diagnoses?specifically no colon cancer. [facility] Medical History (Updated 08/07/23 @ 18:31 by Lexi Dobson) Abdominal pain Anxiety Asthma Chronic kidney disease, stage 3 Former smoker Kidney disease Home Medications siszmlbj-bfj-ibitv ac 400 mcg-calcium carb 500 mg-vit K1 20 mcg tablet 1 ea PO DAILY supplement 07/28/19 [History Last Taken Unknown] calcifediol 30 mcg capsule,24 hr,extended release (Rayaldee) 30 mcg PO DAILY DEFICIENCY 08/07/23 [History Last Taken Unknown] dapagliflozin propanediol 10 mg tablet (Farxiga) 10 mg PO QHS KIDNEY 08/07/23 [History Last Taken Unknown] levalbuterol HCl 1.25 mg/3 mL solution for nebulization 1.25 mg inhalation PRN ASTHMA 08/07/23 [History Last Taken Unknown] tafluprost (PF) 0.0015 % eye drops in a dropperette 1 drp ophthalmic (eye) QHS 08/07/23 [History Last Taken Unknown] albuterol sulfate 90 mcg/actuation aerosol inhaler 2 inh inhalation Q4H PRN shortness of breath or wheezing 08/08/23 [History Last Taken 04/07/23] Allergy/AdvReac Type Severity Reaction Status Date / Time morphine Allergy Rash Verified 08/07/23 11:53 Penicillins Allergy Hives Verified 08/07/23 11:53 albuterol AdvReac Mild [place] Verified 08/08/23 06:10 throat Surgical History S/P colonoscopy s/p fibroid removal S/P hysterectomy S/P tonsillectomy and adenoidectomy Status post breast reduction Status post surgical removal of ganglion cyst Social History Smoking Status: Former smoker alcohol intake: never Physical Exam Const alert and oriented x3 Constitutional Narrative: Patient in mild distress from abdominal discomfort, pleasant General Appearance: cooperative Resp normal respiratory effort GI GI Narrative: Lower transverse incision consistent with prior panniculectomy. Nondistended, soft, tender to palpation of the left lower quadrant and suprapubic positions Lab / Micro Data 08/08/23 06:25 08/08/23 06:25 Labs: Laboratory Results - last 24 hr 08/08/23 06:25: WBC 7.1, RBC 4.36, Hgb 13.0, Hct 40.9, MCV 93.8 D, MCH 29.8, MCHC 31.8 L, RDW Std Deviation 48.2 H, RDW Coeff of Darlene 13.9, Plt Count 278, MPV 8.9, Immature Gran % (Auto) 0.300, Neut % (Auto) 68.5, Lymph % (Auto) 19.4, [place] % (Auto) 10.5 H, Eos % (Auto) 0.6, Baso % (Auto) 0.7, Absolute Neuts (auto) 4.9, Absolute Lymphs (auto) 1.38, Nucleated RBC % 0, Sodium 141, Potassium 4.0, Chloride 111 H, Carbon Dioxide 22.0, Anion Gap 8, BUN 16, Creatinine 1.56 H, Estim Creat Clear Calc 32.12, Est GFR (MDRD) Af Amer 44 L, Est GFR (MDRD) Non-Af 36 L, BUN/Creatinine Ratio 10.3, Glucose 93, Calcium 8.8, Total Bilirubin 0.50, AST 11 L, ALT 14, Alkaline Phosphatase 95, Total Protein 6.3 L, Albumin 2.8 L, Globulin 3.5, Albumin/Globulin Ratio 0.8 L Charges/Coding Visit Charges Inpatient E&M: 44815 Init Hosp L2
[2023-08-08 20:46] VITALS: BP 129/62; PULSE 75; RESP 16; TEMP 37.1; O2SAT 98
[2023-08-08] MEDS: Acetaminophen 500 MG Tablet 1000 MG PO (22:11)
[2023-08-08] MEDS: Latanoprost 0.005% 1 Bottle 1 DRP OPHTHALMIC (22:11)
[2023-08-08] MEDS: DiphenhydrAMINE 50 MG/ML Syringe 25 MG IV (22:50)
[2023-08-09 02:18] VITALS: BP 102/58; PULSE 67; RESP 14; TEMP 37.2; O2SAT 99
[2023-08-09] MEDS: Ondansetron 4 MG/2 ML Vial IV ×3 (02:20→22:28)
[2023-08-09] MEDS: HYDROmorphone 1 MG/ML Syringe IV (02:20)
[2023-08-09] MEDS: Acetaminophen 500 MG Tablet 1000 MG PO ×3 (05:20→21:31)
[2023-08-09] MEDS: metroNIDAZOLE 500 MG/100 ML BAG 100 MG IV ×3 (05:20→22:35)
[2023-08-09] MEDS: DiphenhydrAMINE 50 MG/ML Syringe 25 MG IV (05:21)
[2023-08-09 06:47] LABS: Absolute Lymphocyte Count 1.28 X10^3/uL (0.83-4.51); Absolute Neutrophil Count 4.3 X10^3/uL (2.0-7.7); Basophil# 0.06 X10^3/uL; Basophil% 0.9 % (0-1); Eosinophil# 0.21 X10^3/uL; Eosinophils% 3.2 % (0-5); Hematocrit 39.9 % (37-47); Hemoglobin 12.5 g/dL (12.0-15.0); Lymphocyte # 1.28 X10^3/ul (0.83-4.51); Lymphocyte % 19.7 % (19-41); Mean Corp Hgb Conc 31.3 g/dL (32-36); Mean Corpuscular Hgb 29.9 pg (27.0-32.0); Mean Corpuscular Volume 95.5 fL (81-99); Mean Platelet Vol. 8.9 fl (6.2-12.0); Monocyte# 0.66 X10^3/uL; Monocyte% 10.2 % (0-10); NRBC Flagged by Analyzer 0 % (0-5); Neutrophil # 4.27 X10^3/uL (2.7-7.7); Neutrophil % 65.8 % (47-70); Platelet Count 250 K/mm3 (150-450); RBC Distribution Width CV 13.7 % (11.6-14.6); RBC Distribution Width SD 48.9 fl (35.1-43.9); Red Blood Count 4.18 M/mm3 (4.2-5.4); White Blood Count 6.5 K/mm3 (4.4-11.0)
--- NOTE | 2023-08-09 06:55 | PN.HOSP_ITS ---
Reason for Visit Reason for Visit: Diagnoses Diverticulitis of large intestine without perforation or abscess without bleedi ng (08/07/23) Subjective Subjective Patient seen still complains of some abdominal discomfort. Patient apparently did not tolerate clear liquid the day prior was subsequently kept on only sips. Patient is requesting a trial of clear liquid this a.m. Case discussed with general surgery plan is for repeat imaging studies if patient symptoms do not improve Objective Data Objective Data Vital Signs: Vital Signs Temp Pulse Resp BP Pulse Ox O2 Del Method 98.9 F 67 14 102/58 L 99 Room Air 08/09/23 02:18 08/09/23 02:18 08/09/23 02:18 08/09/23 02:18 08/09/23 02:18 08/09/23 02:18 Oxygen Delivery Method Room Air Weight: 72.3 kg Body Mass Index (BMI) 28.2 Intake & Output: Intake and Output for Last 24 Hours 08/07/23 08/08/23 08/09/23 23:59 23:59 23:59 Intake Total 100 / 100 4000.0 / 4000.0 1062.5 / 1062.5 Output Total 500 / 500 Balance 100 / 100 3500.0 / 3500.0 1062.5 / 1062.5 Lab / Micro Data 08/09/23 06:23 08/09/23 06:23 Labs: Laboratory Results - last 24 hr 08/08/23 06:25: WBC 7.1, RBC 4.36, Hgb 13.0, Hct 40.9, MCV 93.8 D, MCH 29.8, MCHC 31.8 L, RDW Std Deviation 48.2 H, RDW Coeff of Darlene 13.9, Plt Count 278, MPV 8.9, Immature Gran % (Auto) 0.300, Neut % (Auto) 68.5, Lymph % (Auto) 19.4, [place] % (Auto) 10.5 H, Eos % (Auto) 0.6, Baso % (Auto) 0.7, Absolute Neuts (auto) 4.9, Absolute Lymphs (auto) 1.38, Nucleated RBC % 0, Sodium 141, Potassium 4.0, Chloride 111 H, Carbon Dioxide 22.0, Anion Gap 8, BUN 16, Creatinine 1.56 H, Estim Creat Clear Calc 32.12, Est GFR (MDRD) Af Amer 44 L, Est GFR (MDRD) Non-Af 36 L, BUN/Creatinine Ratio 10.3, Glucose 93, Calcium 8.8, Total Bilirubin 0.50, AST 11 L, ALT 14, Alkaline Phosphatase 95, Total Protein 6.3 L, Albumin 2.8 L, Globulin 3.5, Albumin/Globulin Ratio 0.8 L 08/09/23 06:23: WBC 6.5, RBC 4.18 L, Hgb 12.5, Hct 39.9, MCV 95.5, MCH 29.9, MCHC 31.3 L, RDW Std Deviation 48.9 H, RDW Coeff of Darlene 13.7, Plt Count 250, MPV 8.9, Immature Gran % (Auto) 0.200, Neut % (Auto) 65.8, Lymph % (Auto) 19.7, [place] % (Auto) 10.2 H, Eos % (Auto) 3.2, Baso % (Auto) 0.9, Absolute Neuts (auto) 4.3, Absolute Lymphs (auto) 1.28, Nucleated RBC % 0 Physical Exam Narrative GENERAL: cooperative HEENT: Atraumatic; normocephalic EYES; Anicteric, Normal Conjunctiva NECK; supple, normal thyroid, RESPIRATORY: Diminished to auscultation CARDIOVASCULAR: Regular S1 S2, GI: soft, normoactive bowel sounds, LLQ tenderness : No Renal angle tenderness; EXTREMITIES: No edema, no clubbing, MUSCULOSKELETAL: no muscle wasting NEURO: Awake; no lateralizing signs. SKIN: No Rash PSYCH; Flat affect Assessment & Plan Assessment/Plan (1) Sigmoid diverticulitis: PLAN: Plan Patient is a 57-year-old lady with previous history of diverticulitis who presented with abdominal pain. CT of the abdomen and pelvis obtained on admission demonstrated sigmoid diverticulosis with acute sigmoid diverticulitis. Admitted to regular nursing floor for further management 1. Acute sigmoid diverticulitis ? Admitted to regular nursing floor management Cipro and Flagyl in addition to pain management and IV fluid consult was placed to general surgery ? 08/09/2023; Patient seen still complains of some abdominal discomfort. Patient apparently did not tolerate clear liquid the day prior was subsequently kept on only sips. Patient is requesting a trial of clear liquid this a.m. Case discussed with general surgery plan is for repeat imaging studies if patient symptoms do not improve 2. Chronic kidney disease stage III ? Kidney function at baseline 3. Mild intermittent asthma ? Did continue patient bronchodilator treatment regimen 4. Glaucoma ? Did continue with eyedrops as previously prescribed 5. DVT prophylaxis ? SC Lovenox Time spent in the patient's overall evaluation,decision-making process, review of diagnostic data, adjustment of management, discussion with other providers, nursing nursing and ancillary staff involved in patient's care documentation, 40 Minutes Charges/Coding Visit Charges Inpatient E&M: 43385 Subs Hosp L2
[2023-08-09 07:15] LABS: Anion Gap 6 (5-15); BUN 14 mg/dL (7-18); BUN/Creat Ratio 8.3 RATIO (10-20); Calcium,Total 8.4 mg/dL (8.5-10.1); Chloride 112 mmol/L (98-107); Creatinine, Serum 1.68 mg/dL (0.55-1.02); EST Glomerular Filtration Rate 33 mL/min (>60); Est Glom Filt Rate - Afr Amer 40 mL/min (>60); Estimated Creatinine Clearance 29.83 ml/min; Glucose 83 mg/dL (74-106); Magnesium 1.8 mg/dL (1.6-2.6); Phosphorus 2.8 mg/dL (2.5-4.9); Potassium 3.9 mmol/L (3.5-5.1); Sodium Level 141 mmol/L (136-145)
[2023-08-09] MEDS: 0.9% Normal Saline (1000mL) 1,000 ML 125 ML IV ×2 (08:23→18:05)
[2023-08-09 08:24] VITALS: BP 117/66; PULSE 65; RESP 16; TEMP 36.6; O2SAT 99
--- NOTE | 2023-08-09 08:56 | PN.SURG_ITS ---
Subjective Subjective Patient reports she tried a clear liquid diet yesterday but threw up 3 times afterwards. She reports that her left lower quadrant pain is improved from yesterday but is still present. Objective Data Objective Data Vital Signs: Vital Signs Temp Pulse Resp BP Pulse Ox O2 Del Method 98 F 65 16 117/66 99 Room Air 08/09/23 08:24 08/09/23 08:24 08/09/23 08:24 08/09/23 08:24 08/09/23 08:24 08/09/23 08:24 Oxygen Delivery Method Room Air Weight: 159 lb 6.307 oz Body Mass Index (BMI) 28.2 Intake & Output: Intake and Output for Last 24 Hours 08/07/23 08/08/23 08/09/23 23:59 23:59 23:59 Intake Total 100 / 100 4000.0 / 4000.0 1250.0 / 1250.0 Output Total 500 / 500 Balance 100 / 100 3500.0 / 3500.0 1250.0 / 1250.0 Lab / Micro Data 08/09/23 06:23 08/09/23 06:23 Labs: Laboratory Results - last 24 hr 08/09/23 06:23: WBC 6.5, RBC 4.18 L, Hgb 12.5, Hct 39.9, MCV 95.5, MCH 29.9, MCHC 31.3 L, RDW Std Deviation 48.9 H, RDW Coeff of Darlene 13.7, Plt Count 250, MPV 8.9, Immature Gran % (Auto) 0.200, Neut % (Auto) 65.8, Lymph % (Auto) 19.7, [place] % (Auto) 10.2 H, Eos % (Auto) 3.2, Baso % (Auto) 0.9, Absolute Neuts (auto) 4.3, Absolute Lymphs (auto) 1.28, Nucleated RBC % 0, Sodium 141, Potassium 3.9, Chloride 112 H, Carbon Dioxide 23.0, Anion Gap 6, BUN 14, Creatinine 1.68 H, Estim Creat Clear Calc 29.83, Est GFR (MDRD) Af Amer 40 L, Est GFR (MDRD) Non-Af 33 L, BUN/Creatinine Ratio 8.3 L, Glucose 83, Calcium 8.4 L, Phosphorus 2.8, Magnesium 1.8 Physical Exam Const oriented x3 and no apparent distress Resp normal respiratory effort GI soft to palpation Palpation: tender LLQ Assessment & Plan Assessment/Plan (1) Sigmoid diverticulitis: PLAN: The patient has sigmoid diverticulitis and she has been here for 2 days now. She try clear liquids yesterday but she threw up. I advised her to cut it back down to just sips of clears and to wait until her pain is resolved before resuming a diet. Continue antibiotics and IV fluids. If she is still having pain tomorrow with no improvement and her white count remains normal I will repeat a CT scan with oral contrast to check for any changes in the abdomen that could be causing her increased pain. Zen Hansen MD Pager: [facility] [address] [place] [address], [address] [place] [address] Office:
[2023-08-09] MEDS: Ciprofloxacin 200 MG/100 ML BAG 100 MG IV ×2 (10:49→21:28)
[2023-08-09] MEDS: Enoxaparin 40 MG/0.4 ML Syringe SC (10:50)
[2023-08-09] MEDS: 0.9% Saline Lock 10 ML Syringe IV ×3 (10:55→22:28)
[2023-08-09] MEDS: HYDROmorphone 0.5 MG/0.5 ML SYRINGE IV (10:56)
[2023-08-09 15:11] VITALS: BP 121/69; PULSE 70; RESP 16; TEMP 36.8; O2SAT 100
[2023-08-09] MEDS: Mag Hydrox/Al Hydrox/Simeth 30 ML UDC PO (21:22)
[2023-08-09] MEDS: Latanoprost 0.005% 1 Bottle 1 DRP OPHTHALMIC (21:31)
[2023-08-09 21:33] VITALS: BP 142/81; PULSE 65; RESP 18; TEMP 36.7; O2SAT 100
[2023-08-09] MEDS: oxyCODONE 5 MG Tablet 10 MG PO (21:49)
[2023-08-10 01:45] VITALS: BP 117/68; PULSE 61; RESP 18; TEMP 37; O2SAT 98
[2023-08-10] MEDS: 0.9% Normal Saline (1000mL) 1,000 ML 125 ML IV ×3 (01:49→22:39)
[2023-08-10] MEDS: 0.9% Saline Lock 10 ML Syringe IV (05:08)
[2023-08-10] MEDS: metroNIDAZOLE 500 MG/100 ML BAG 100 MG IV ×3 (05:08→23:19)
[2023-08-10] MEDS: Acetaminophen 500 MG Tablet 1000 MG PO ×3 (05:10→22:07)
[2023-08-10 05:14] VITALS: BP 138/75; PULSE 73; RESP 18; TEMP 37; O2SAT 97
--- NOTE | 2023-08-10 07:25 | PN.HOSP_ITS ---
Reason for Visit Reason for Visit: Diagnoses Diverticulitis of large intestine without perforation or abscess without bleedi ng (08/07/23) Subjective Subjective Patient complains of having experienced epigastric discomfort during the night. Subsequently started on Protonix. She did tolerate clear liquid plan is advance as tolerated. Objective Data Objective Data Vital Signs: Vital Signs Temp Pulse Resp BP Pulse Ox O2 Del Method 98.6 F 73 18 138/75 H 97 Room Air 08/10/23 05:14 08/10/23 05:14 08/10/23 05:14 08/10/23 05:14 08/10/23 05:14 08/10/23 05:14 Oxygen Delivery Method Room Air Weight: 72.3 kg Body Mass Index (BMI) 28.2 Intake & Output: Intake and Output for Last 24 Hours 08/08/23 08/09/23 08/10/23 23:59 23:59 22:59 Intake Total 4000.0 / 4000.0 2529.17 / 2629.17 1300 / 1300 Output Total 500 / 500 Balance 3500.0 / 3500.0 2529.17 / 2629.17 1300 / 1300 Lab / Micro Data 08/10/23 06:50 08/10/23 06:50 Physical Exam Narrative GENERAL: cooperative HEENT: Atraumatic; normocephalic EYES; Anicteric, Normal Conjunctiva NECK; supple, normal thyroid, RESPIRATORY: Diminished to auscultation CARDIOVASCULAR: Regular S1 S2, GI: soft, normoactive bowel sounds, LLQ tenderness : No Renal angle tenderness; EXTREMITIES: No edema, no clubbing, MUSCULOSKELETAL: no muscle wasting NEURO: Awake; no lateralizing signs. SKIN: No Rash PSYCH; Flat affect Assessment & Plan Assessment/Plan (1) Sigmoid diverticulitis: PLAN: Plan Patient is a 57-year-old lady with previous history of diverticulitis who presented with abdominal pain. CT of the abdomen and pelvis obtained on admission demonstrated sigmoid diverticulosis with acute sigmoid diverticulitis. Admitted to regular nursing floor for further management 1. Acute sigmoid diverticulitis ? Admitted to regular nursing floor management Cipro and Flagyl in addition to pain management and IV fluid consult was placed to general surgery ? 08/09/2023; Patient seen still complains of some abdominal discomfort. Patient apparently did not tolerate clear liquid the day prior was subsequently kept on only sips. Patient is requesting a trial of clear liquid this a.m. Case discussed with general surgery plan is for repeat imaging studies if patient symptoms do not improve ? 3Patient complains of having experienced epigastric discomfort during the night. Subsequently started on Protonix. She did tolerate clear liquid plan is advance as tolerated. 2. Chronic kidney disease stage III ? Kidney function at baseline 3. Mild intermittent asthma ? Did continue patient bronchodilator treatment regimen 4. Glaucoma ? Did continue with eyedrops as previously prescribed 5. DVT prophylaxis ? SC Lovenox Time spent in the patient's overall evaluation,decision-making process, review of diagnostic data, adjustment of management, discussion with other providers, nursing nursing and ancillary staff involved in patient's care documentation, 35 Minutes Charges/Coding Visit Charges Inpatient E&M: 53247 Subs Hosp L2
[2023-08-10 08:08] LABS: Absolute Lymphocyte Count 1.22 X10^3/uL (0.83-4.51); Absolute Neutrophil Count 1.8 X10^3/uL (2.0-7.7); Basophil# 0.04 X10^3/uL; Eosinophil# 0.27 X10^3/uL; Eosinophils% 7.1 % (0-5); Hematocrit 36.5 % (37-47); Hemoglobin 12.2 g/dL (12.0-15.0); Lymphocyte # 1.22 X10^3/ul (0.83-4.51); Mean Corp Hgb Conc 33.4 g/dL (32-36); Mean Corpuscular Hgb 30.7 pg (27.0-32.0); Mean Corpuscular Volume 91.9 fL (81-99); Mean Platelet Vol. 8.9 fl (6.2-12.0); Monocyte# 0.45 X10^3/uL; Monocyte% 11.8 % (0-10); NRBC Flagged by Analyzer 0 % (0-5); Neutrophil # 1.82 X10^3/uL (2.7-7.7); Neutrophil % 47.8 % (47-70); Platelet Count 254 K/mm3 (150-450); RBC Distribution Width CV 13.2 % (11.6-14.6); RBC Distribution Width SD 44.7 fl (35.1-43.9); Red Blood Count 3.97 M/mm3 (4.2-5.4); White Blood Count 3.8 K/mm3 (4.4-11.0)
--- NOTE | 2023-08-10 08:11 | PCM.PN.SRG ---
Subjective Subjective The patient reports a lot of improvement in her pain since yesterday evening but she still does have pain. She did tolerate full liquids yesterday. She says she is not passing flatus which just started yesterday afternoon. Objective Data Objective Data Vital Signs: Vital Signs Temp Pulse Resp BP Pulse Ox O2 Del Method 98.6 F 73 18 138/75 H 97 Room Air 08/10/23 05:14 08/10/23 05:14 08/10/23 05:14 08/10/23 05:14 08/10/23 05:14 08/10/23 05:14 Oxygen Delivery Method Room Air Weight: 159 lb 6.307 oz Body Mass Index (BMI) 28.2 Intake & Output: Intake and Output for Last 24 Hours 08/08/23 08/09/23 08/10/23 23:59 23:59 22:59 Intake Total 4000.0 / 4000.0 2529.17 / 2629.17 1300 / 1300 Output Total 500 / 500 Balance 3500.0 / 3500.0 2529.17 / 2629.17 1300 / 1300 Lab / Micro Data 08/09/23 06:23 08/09/23 06:23 Physical Exam Const oriented x3 and no apparent distress Resp normal respiratory effort GI soft to palpation Palpation: tender LLQ Assessment & Plan Assessment/Plan (1) Sigmoid diverticulitis: PLAN: The patient does still have some mild left lower quadrant tenderness to deep palpation. I will continue full liquids until the pain is fully resolved and then advance diet. She may have to stay another day as I do not want to advance her diet while she is still having tenderness. If she has resolution of her pain today I will try regular diet and possibly discharge her home on oral antibiotics this evening. Zen Hansen MD Pager: [facility] [address] [place] [address], [address] [place] [address] Office:
[2023-08-10 08:18] VITALS: BP 135/76; PULSE 60; RESP 16; TEMP 36.6; O2SAT 98
[2023-08-10 08:31] LABS: Anion Gap 6 (5-15); BUN 10 mg/dL (7-18); BUN/Creat Ratio 6.8 RATIO (10-20); Calcium,Total 8.5 mg/dL (8.5-10.1); Chloride 115 mmol/L (98-107); Creatinine, Serum 1.48 mg/dL (0.55-1.02); EST Glomerular Filtration Rate 38 mL/min (>60); Est Glom Filt Rate - Afr Amer 46 mL/min (>60); Estimated Creatinine Clearance 33.86 ml/min; Glucose 96 mg/dL (74-106); Potassium 3.8 mmol/L (3.5-5.1); Sodium Level 143 mmol/L (136-145)
[2023-08-10] MEDS: Pantoprazole Sodium 40 MG Tablet PO ×2 (10:08→22:49)
[2023-08-10] MEDS: Ciprofloxacin 200 MG/100 ML BAG 100 MG IV ×2 (10:08→22:01)
[2023-08-10] MEDS: Enoxaparin 40 MG/0.4 ML Syringe SC (10:10)
[2023-08-10 14:00] VITALS: BP 149/81; PULSE 67; RESP 16; TEMP 36.8; O2SAT 98
--- NOTE | 2023-08-10 14:45 | CT_ITS ---
STUDY: CT ABDOMEN AND PELVIS WITH CONTRAST REASON FOR EXAM: Female, 57 years old. Diverticulitis RADIATION DOSAGE (If Supplied By Facility): CTDIvol = ( 14.40 ) mGy, DLP = ( 1046.63 ) mGycm TECHNIQUE: Transaxial images were obtained from the dome of the diaphragm to the symphysis pubis with oral contrast. Oral and amp;amp; IV Gastrografin and amp;amp; 100mL Isovue-370 was administered. Sagittal and coronal images were reconstructed. Individualized dose optimization techniques were used for this CT. COMPARISON: 08/07/2023 FINDINGS: The visualized lung bases are unremarkable. The visualized portions of the heart are within normal limits. No change in a 2 cm cyst in the anterior segment right lobe of the liver inferiorly. Normal gallbladder and extrahepatic biliary system. Normal spleen. Normal pancreas. Normal bilateral adrenal glands. Normal right kidney. No change in 2.5 cm cyst in the upper pole the left kidney. Normal visualized stomach. Normal small intestine. There is diverticulosis, with thickening of the colon wall, and pericolonic inflammation changes consistent with acute diverticulitis. No loculated fluid collection to suggest abscess. No pneumoperitoneum to suggest perforation. Findings appear improved when compared with the prior study. The appendix is visualized and appears normal. Normal abdominal aorta. Normal inferior vena cava. Normal retroperitoneum. Normal urinary bladder. Normal abdominal wall. Mild levoscoliosis of the lumbar spine. CT/Abdomen/Pelvis WITH Contrast IMPRESSION: Improved sigmoid diverticulitis without abscess or perforation. Electronically Signed: Richard Crenshaw MD at 18:16 EST ,
--- NOTE | 2023-08-10 17:39 | PN_ITS ---
Progress Note The patient asked to be advanced on her diet today and once she was advanced she started having more pain. I putting her back down to clear liquids and repeating a CT scan with oral and IV contrast. Zen Hansen MD Pager: [facility] [address] [place] [address], [address] [place] [address] Office:
--- NOTE | 2023-08-10 17:39 | PCM.PN.BLA ---
Progress Note The patient asked to be advanced on her diet today and once she was advanced she started having more pain. I putting her back down to clear liquids and repeating a CT scan with oral and IV contrast. Zen Hansen MD Pager: [facility] [address] [place] [address], [address] [place] [address] Office:
[2023-08-10] MEDS: DiphenhydrAMINE 50 MG/ML Syringe 25 MG IV (21:58)
[2023-08-10] MEDS: Ondansetron 4 MG/2 ML Vial IV (21:58)
[2023-08-10 22:00] VITALS: RESP 16
[2023-08-10] MEDS: Latanoprost 0.005% 1 Bottle 1 DRP OPHTHALMIC (22:11)
[2023-08-10 23:00] VITALS: BP 139/63; PULSE 60; RESP 16; TEMP 36.8; O2SAT 97
[2023-08-11] MEDS: HYDROmorphone 0.5 MG/0.5 ML SYRINGE IV (02:16)
[2023-08-11] MEDS: Menthol/Lanolin/Calamine/Znox 113 GM Tube 1 APPLIC TOPICAL ×3 (02:19→22:46)
[2023-08-11 05:00] VITALS: BP 127/81; PULSE 73; RESP 16; TEMP 36.8; O2SAT 100
[2023-08-11] MEDS: metroNIDAZOLE 500 MG/100 ML BAG 100 MG IV ×3 (05:36→21:30)
[2023-08-11] MEDS: oxyCODONE 5 MG Tablet 10 MG PO (05:42)
[2023-08-11] MEDS: Acetaminophen 500 MG Tablet 1000 MG PO ×2 (05:43→22:46)
[2023-08-11 06:47] LABS: Absolute Lymphocyte Count 1.16 X10^3/uL (0.83-4.51); Absolute Neutrophil Count 1.4 X10^3/uL (2.0-7.7); Basophil# 0.04 X10^3/uL; Basophil% 1.2 % (0-1); Eosinophil# 0.24 X10^3/uL; Eosinophils% 7.3 % (0-5); Hematocrit 38.1 % (37-47); Hemoglobin 12.3 g/dL (12.0-15.0); Lymphocyte # 1.16 X10^3/ul (0.83-4.51); Lymphocyte % 35.3 % (19-41); Mean Corp Hgb Conc 32.3 g/dL (32-36); Mean Corpuscular Hgb 30.1 pg (27.0-32.0); Mean Corpuscular Volume 93.4 fL (81-99); Mean Platelet Vol. 8.5 fl (6.2-12.0); Monocyte# 0.44 X10^3/uL; Monocyte% 13.4 % (0-10); NRBC Flagged by Analyzer 0 % (0-5); Neutrophil % 42.5 % (47-70); Platelet Count 247 K/mm3 (150-450); RBC Distribution Width CV 13.4 % (11.6-14.6); RBC Distribution Width SD 45.7 fl (35.1-43.9); Red Blood Count 4.08 M/mm3 (4.2-5.4); White Blood Count 3.3 K/mm3 (4.4-11.0)
[2023-08-11 07:25] LABS: Anion Gap 5 (5-15); BUN 8 mg/dL (7-18); BUN/Creat Ratio 5.1 RATIO (10-20); Calcium,Total 8.7 mg/dL (8.5-10.1); Chloride 113 mmol/L (98-107); Creatinine, Serum 1.56 mg/dL (0.55-1.02); EST Glomerular Filtration Rate 36 mL/min (>60); Est Glom Filt Rate - Afr Amer 44 mL/min (>60); Estimated Creatinine Clearance 32.12 ml/min; Glucose 93 mg/dL (74-106); Potassium 3.8 mmol/L (3.5-5.1); Sodium Level 143 mmol/L (136-145)
[2023-08-11] MEDS: Ensure Clear 120 ML Liquid PO (08:01)
[2023-08-11] MEDS: 0.9% Normal Saline (1000mL) 1,000 ML 125 ML IV (08:02)
[2023-08-11] MEDS: Ciprofloxacin 200 MG/100 ML BAG 100 MG IV ×2 (08:43→22:44)
[2023-08-11] MEDS: Pantoprazole Sodium 40 MG Tablet PO ×2 (08:45→20:51)
[2023-08-11] MEDS: Enoxaparin 40 MG/0.4 ML Syringe SC (08:45)
[2023-08-11 11:00] VITALS: BP 136/86; PULSE 62; RESP 18; TEMP 36.4; O2SAT 100
--- NOTE | 2023-08-11 13:12 | PCM.PN.SRG ---
Subjective Subjective Patient seen and examined during AM rounds. She is tearful upon entering. She proclaims that the 2 doctors are not on the same page over the weekend. She feels confused about what food she is to be trying and what food she is to be excluded. She also wishes to know more globally why this keeps happening to her despite her intentions for healthy eating and exercise habits. She reports some persistent discomfort in her lower abdomen. Objective Data Objective Data Vital Signs: Vital Signs Temp Pulse Resp BP Pulse Ox O2 Del Method 97.6 F L 62 18 136/86 H 100 Room Air 08/11/23 11:00 08/11/23 11:00 08/11/23 11:00 08/11/23 11:00 08/11/23 11:00 08/11/23 11:00 Oxygen Delivery Method Room Air Weight: 159 lb 6.307 oz Body Mass Index (BMI) 28.2 Intake & Output: Intake and Output for Last 24 Hours 08/10/23 08/10/23 08/11/23 00:59 23:59 23:59 Intake Total 1477.08 / 1477.08 Balance 1477.08 / 1477.08 Lab / Micro Data 08/11/23 06:25 08/11/23 06:25 Labs: Laboratory Results - last 24 hr 08/11/23 06:25: WBC 3.3 L, RBC 4.08 L, Hgb 12.3, Hct 38.1, MCV 93.4, MCH 30.1, MCHC 32.3, RDW Std Deviation 45.7 H, RDW Coeff of Darlene 13.4, Plt Count 247, MPV 8.5, Immature Gran % (Auto) 0.300, Neut % (Auto) 42.5 L, Lymph % (Auto) 35.3, [place] % (Auto) 13.4 H, Eos % (Auto) 7.3 H, Baso % (Auto) 1.2 H, Absolute Neuts (auto) 1.4 L, Absolute Lymphs (auto) 1.16, Nucleated RBC % 0, Sodium 143, Potassium 3.8, Chloride 113 H, Carbon Dioxide 25.0, Anion Gap 5, BUN 8, Creatinine 1.56 H, Estim Creat Clear Calc 32.12, Est GFR (MDRD) Af Amer 44 L, Est GFR (MDRD) Non-Af 36 L, BUN/Creatinine Ratio 5.1 L, Glucose 93, Calcium 8.7 Radiography Diagnostic Testing: Radiology Impression Abdomen/Pelvis CT 08/10/23 14:45 IMPRESSION: Improved sigmoid diverticulitis without abscess or perforation. Electronically Signed: Richard Crenshaw MD at 18:16 EST Reading Location ID and State: [facility] / [place] Tel , Service support , Physical Exam Const oriented x3 Constitutional Narrative: Mild distress?but this appears to be primarily agitation with prolonged stay and uncertainty Resp normal respiratory effort GI GI Narrative: Nondistended, soft, mildly tender to palpation of the left lower quadrant and suprapubic positions Assessment & Plan Assessment/Plan (1) Sigmoid diverticulitis: PLAN: Patient with some persistent left lower quadrant discomfort that is gradually improving. Repeat CT imaging of the abdomen pelvis was performed yesterday due to some recurrence of her discomfort, however, this showed improvements?radiographically speaking?of the diverticular inflammation. I tried to clarify with Mrs. Hutchison at bedside that they are different management patterns and treatment decisions that are made with respect to diverticulitis and this is largely owing to the disparity in the treatment recommendations that are given from authoritative sources. I have tried to reassure her that likely her recurrent symptoms have very little to do?if anything?with her dietary or exercise habits. At this point I have recommended that she advance to a full liquid diet with protein supplementation and we will monitor for tolerance before trying to advance her further. Charges/Coding Visit Charges Inpatient E&M: 83212 Subs Hosp L2
--- NOTE | 2023-08-11 13:22 | PCM.PN.HOSP ---
Reason for Visit Reason for Visit: Diagnoses Diverticulitis of large intestine without perforation or abscess without bleeding (08/07/23) Unspecified abdominal pain (08/07/23) Subjective Subjective Still has some abdominal tenderness and cramping, had diarrhea yesterday after her oral contrast but it is slowed down today. Had not tolerated her diet yesterday and was backed off to full liquids which she is now tolerating Objective Data Objective Data Vital Signs: Vital Signs Temp Pulse Resp BP Pulse Ox O2 Del Method 97.6 F L 62 18 136/86 H 100 Room Air 08/11/23 11:00 08/11/23 11:00 08/11/23 11:00 08/11/23 11:00 08/11/23 11:00 08/11/23 11:00 Oxygen Delivery Method Room Air Weight: 72.3 kg Body Mass Index (BMI) 28.2 Intake & Output: Intake and Output for Last 24 Hours 08/10/23 08/10/23 08/11/23 00:59 23:59 23:59 Intake Total 1677.08 / 1677.08 Balance 1677.08 / 1677.08 Lab / Micro Data 08/11/23 06:25 08/11/23 06:25 Labs: Laboratory Results - last 24 hr 08/11/23 06:25: WBC 3.3 L, RBC 4.08 L, Hgb 12.3, Hct 38.1, MCV 93.4, MCH 30.1, MCHC 32.3, RDW Std Deviation 45.7 H, RDW Coeff of Darlene 13.4, Plt Count 247, MPV 8.5, Immature Gran % (Auto) 0.300, Neut % (Auto) 42.5 L, Lymph % (Auto) 35.3, [place] % (Auto) 13.4 H, Eos % (Auto) 7.3 H, Baso % (Auto) 1.2 H, Absolute Neuts (auto) 1.4 L, Absolute Lymphs (auto) 1.16, Nucleated RBC % 0, Sodium 143, Potassium 3.8, Chloride 113 H, Carbon Dioxide 25.0, Anion Gap 5, BUN 8, Creatinine 1.56 H, Estim Creat Clear Calc 32.12, Est GFR (MDRD) Af Amer 44 L, Est GFR (MDRD) Non-Af 36 L, BUN/Creatinine Ratio 5.1 L, Glucose 93, Calcium 8.7 Radiography Diagnostic Testing: Radiology Impression Abdomen/Pelvis CT 08/10/23 14:45 IMPRESSION: Improved sigmoid diverticulitis without abscess or perforation. Electronically Signed: Richard Crenshaw MD at 18:16 EST , Physical Exam Narrative General: Alert, oriented, no apparent distress HEENT: Atraumatic, normocephalic Eyes: Anicteric, normal conjunctiva, extraocular movements grossly intact Neck: Supple Respiratory: Clear to auscultation bilaterally, normal respiratory effort Cardiovascular: Regular rate and rhythm GI: Soft, nondistended, voluntary guarding and tenderness in center of abdomen without rebound or rigidity Extremities: No edema Musculoskeletal: Moving all extremities Neuro: No overt focal neurological deficits Skin: No rashes appreciated Psych: Cooperative Assessment & Plan Assessment/Plan (1) Sigmoid diverticulitis: PLAN: Plan Patient is a 57-year-old lady with previous history of diverticulitis who presented with abdominal pain. CT of the abdomen and pelvis obtained on admission demonstrated sigmoid diverticulosis with acute sigmoid diverticulitis. Admitted to regular nursing floor for further management 1. Acute sigmoid diverticulitis ? Admitted to regular nursing floor management Cipro and Flagyl in addition to pain management and IV fluid consult was placed to general surgery ? 08/09/2023; Patient seen still complains of some abdominal discomfort. Patient apparently did not tolerate clear liquid the day prior was subsequently kept on only sips. Patient is requesting a trial of clear liquid this a.m. Case discussed with general surgery plan is for repeat imaging studies if patient symptoms do not improve ? 3Patient complains of having experienced epigastric discomfort during the night. Subsequently started on Protonix. She did tolerate clear liquid plan is advance as tolerated. -08/11: Did not tolerate advanced diet yesterday, tolerated fulls today. Discussed with surgery, will advance to transitional this evening to assess how well patient tolerates 2. Chronic kidney disease stage III ? Kidney function at baseline 3. Mild intermittent asthma ? Did continue patient bronchodilator treatment regimen 4. Glaucoma ? Did continue with eyedrops as previously prescribed 5. DVT prophylaxis ? SC Lovenox Time spent in the patient's overall evaluation,decision-making process, review of diagnostic data, adjustment of management, discussion with other providers, nursing nursing and ancillary staff involved in patient's care documentation, 35 Minutes Charges/Coding Visit Charges Inpatient E&M: 37520 Subs Hosp L2
--- NOTE | 2023-08-11 16:23 | CHAPLAIN ---
Type of Pastoral Visit _x__ Initial Visit ___ Follow-up Visit ___ On-call Visit ___ General Patient Visit ___ Spiritual Assessment ___ Family Conference ___ Bereavement ___ Rapid Response ___ Code Blue ___ Other (describe below) Pastoral Care Referral From _x__ Patient ___ Family ___ Nurse ___ Physician ___ Preform Machine Operator ___ Outside Sales Manager ___ Other (describe below) Sacrament/Intervention _x__ Active listening ___ Anointing ___ Evangelical _x__ Bereavement ___ Communion _x__ Janessa exploration ___ _x__ Life review _x__ Prayer ___ Reconciliation ___ Sacrament of Sick _x__ Supportive presence ___ Wedding ___ Other (describe below) Pastoral Comments patient was very open and honest about her feelings and how she is experiencing grief, even four years since the passing of her ; pt recognizes connection between physical and emotional health and leads the conversation with insights she is receiving as she has time to process; pt expresses deep janessa in God and her devotion to Him; as patient talks she reveals more of her own thoughts on what needs to be believed and what needs to be done; pt has a very close friend that is her confidante; pt welcomes prayer and expresses thankfulness for the time given to her
[2023-08-11 17:00] VITALS: BP 131/83; PULSE 59; RESP 16; TEMP 37.2; O2SAT 100
[2023-08-11 22:41] VITALS: BP 140/71; PULSE 63; RESP 18; TEMP 36.8; O2SAT 99
[2023-08-11] MEDS: 0.9% Normal Saline (1000mL) 1,000 ML 75 ML IV (22:43)
[2023-08-11] MEDS: Latanoprost 0.005% 1 Bottle 1 DRP OPHTHALMIC (22:47)
[2023-08-11] MEDS: Mag Hydrox/Al Hydrox/Simeth 30 ML UDC PO (22:52)
[2023-08-12 05:43] VITALS: BP 158/87; PULSE 61; RESP 18; TEMP 36.8; O2SAT 100
[2023-08-12 08:04] LABS: Absolute Lymphocyte Count 1.25 X10^3/uL (0.83-4.51); Absolute Neutrophil Count 1.6 X10^3/uL (2.0-7.7); Basophil# 0.04 X10^3/uL; Basophil% 1.1 % (0-1); Eosinophil# 0.17 X10^3/uL; Eosinophils% 4.8 % (0-5); Hemoglobin 12.4 g/dL (12.0-15.0); Lymphocyte # 1.25 X10^3/ul (0.83-4.51); Lymphocyte % 35.3 % (19-41); Mean Corp Hgb Conc 32.6 g/dL (32-36); Mean Corpuscular Hgb 29.9 pg (27.0-32.0); Mean Corpuscular Volume 91.6 fL (81-99); Mean Platelet Vol. 8.9 fl (6.2-12.0); Monocyte# 0.48 X10^3/uL; Monocyte% 13.6 % (0-10); NRBC Flagged by Analyzer 0 % (0-5); Neutrophil # 1.59 X10^3/uL (2.7-7.7); Neutrophil % 44.9 % (47-70); Platelet Count 279 K/mm3 (150-450); RBC Distribution Width CV 13.3 % (11.6-14.6); RBC Distribution Width SD 44.8 fl (35.1-43.9); Red Blood Count 4.15 M/mm3 (4.2-5.4); White Blood Count 3.5 K/mm3 (4.4-11.0)
[2023-08-12 08:15] VITALS: BP 152/78; PULSE 68; RESP 18; TEMP 36.7; O2SAT 98
--- NOTE | 2023-08-12 08:26 | PN.SURG_ITS ---
Subjective Subjective Patient is a 57 y/o F I am following in conjunction with Dr. Moralez. Patient denies abdominal pain this morning. She denies nausea, vomiting. She is tolerating her transitional diet. She voices she is ready to go home. Patient states she had meeting with the dietitian yesterday to discuss diet moving forward. Objective Data Objective Data Vital Signs: Vital Signs Temp Pulse Resp BP Pulse Ox O2 Del Method 98.3 F 61 18 158/87 H 100 Room Air 08/12/23 05:43 08/12/23 05:43 08/12/23 05:43 08/12/23 05:43 08/12/23 05:43 08/12/23 05:43 Oxygen Delivery Method Room Air Weight: 159 lb 6.307 oz Body Mass Index (BMI) 28.2 Intake & Output: Intake and Output for Last 24 Hours 08/10/23 08/11/23 08/12/23 23:59 23:59 23:59 Intake Total 3556.25 / 3556.25 Balance 3556.25 / 3556.25 Lab / Micro Data 08/12/23 07:25 08/11/23 06:25 Labs: Laboratory Results - last 24 hr 08/12/23 07:25: WBC 3.5 L, RBC 4.15 L, Hgb 12.4, Hct 38.0, MCV 91.6, MCH 29.9, MCHC 32.6, RDW Std Deviation 44.8 H, RDW Coeff of Darlene 13.3, Plt Count 279, MPV 8.9, Immature Gran % (Auto) 0.300, Neut % (Auto) 44.9 L, Lymph % (Auto) 35.3, [place] % (Auto) 13.6 H, Eos % (Auto) 4.8, Baso % (Auto) 1.1 H, Absolute Neuts (auto) 1.6 L, Absolute Lymphs (auto) 1.25, Nucleated RBC % 0 Physical Exam GI normal to inspection, nondistended, normoactive bowel sounds, soft to palpation, non-tender and non-distended Assessment & Plan Assessment/Plan (1) Sigmoid diverticulitis: PLAN: Continue low fiber diet for 2 additional weeks Recommend Cipro and Flagyl for a total of 14 days. Prescriptions will be sent to patient's pharmacy. Follow-up in [address] Moralez Patient is ready for discharge Charges/Coding Visit Charges Inpatient E&M: 00843 Subs Hosp L1
[2023-08-12 08:30] LABS: Anion Gap 3 (5-15); BUN 6 mg/dL (7-18); BUN/Creat Ratio 4.2 RATIO (10-20); Calcium,Total 8.7 mg/dL (8.5-10.1); Chloride 114 mmol/L (98-107); Creatinine, Serum 1.44 mg/dL (0.55-1.02); EST Glomerular Filtration Rate 40 mL/min (>60); Est Glom Filt Rate - Afr Amer 48 mL/min (>60); Glucose 99 mg/dL (74-106); Potassium 3.7 mmol/L (3.5-5.1); Sodium Level 142 mmol/L (136-145)
[2023-08-12] MEDS: Pantoprazole Sodium 40 MG Tablet PO (09:06)
[2023-08-12] MEDS: metroNIDAZOLE 500 MG/100 ML BAG 100 MG IV (09:06)
[2023-08-12] MEDS: Ciprofloxacin 200 MG/100 ML BAG 100 MG IV (10:15)
--- NOTE | 2023-08-12 10:21 | DCINST_ITS ---
Discharge Instructions Diet Discharge Diet: - (Low residue diet for 2 weeks) Activity Discharge Activity: Return to Normal Activity Follow Up Care Test Results: Test results from this visit will be discussed in further detail at your follow- up appointment, if applicable. Discharge Plan Admission Admit Date/Time: 08/07/23 16:07 Primary Reason for Your Visit: Diverticulitis Attending Provider: Letha Hebert Primary Care Provider: Rehana Hernandez Consulting Providers: Gustabo Moralez; Howard Gomes; Letha Hebert; Harrison Gaston Instructions Patient Instructions: Diverticulitis Dc Additional Instructions / Restrictions: DISCHARGE INSTRUCTIONS PLEASE READ *Please take this with you to your next doctors appointment* -You will be discharged on ciprofloxacin and metronidazole, these prescriptions were called into your [facility] pharmacy on file -Please follow-up with surgery clinic upon discharge. Please call their office to schedule hospital follow-up appointment upon discharge. -Eat a diet low in fiber while recovering. -Foods to include: flake cereal, mashed potatoes, pancakes, waffles, pasta, white bread, rice, applesauce, bananas, eggs, fish, poultry, tofu, and well- cooked vegetables -Drink 6 to 8 glasses of water every day, unless told otherwise -Use a heating pad or hot water bottle to reduce abdominal cramping or pain -If you have not had a colonoscopy within the past year it is recommended that you have one in 6 to 8 weeks. This can be coordinated through your primary care physician's office or surgery clinic office -Please call your primary care provider's office upon discharge to schedule a hospital follow up within 1 week. -For any concerning signs or symptoms please call 911 or proceed to the nearest emergency department Discharge Orders/Prescriptions Prescriptions: New ciprofloxacin HCl [Cipro] 500 mg tablet 500 mg PO BID 9 Days Qty: 18 0RF metronidazole 500 mg tablet 500 mg PO TID 9 Days Qty: 27 0RF No Action [id number] 1 EACH tablet 1 ea PO DAILY Rayaldee 30 mcg capsule,extended release 24 hr 30 mcg PO DAILY Farxiga 10 mg tablet 10 mg PO QHS levalbuterol HCl 1.25 mg/3 mL solution for nebulization 1.25 mg INHALATION PRN tafluprost (PF) 0.0015 % dropperette 1 drp ophthalmic (eye) QHS Patient Comments: INSTILL 1 DROP INTO BOTH EYES EVERY EVENING DIRECTED albuterol sulfate 90 mcg/actuation HFA aerosol inhaler 2 inh inhalation Q4H PRN (Reason: shortness of breath or wheezing) Referrals / Follow Up: Rehana Hernandez MD [Primary Care Provider] - Gustabo Moralez MD [Med Staff - Active Staff] - 08/26/23 (Please contact our office to schedule an appointment 2 weeks from discharge. ) Disposition Disposition (needs filled in before D/C Order can be placed): Home, Self Care
--- NOTE | 2023-08-12 10:24 | PCM.DC.SUM ---
Providers Date of Admission: 08/07/23 Date of Discharge: 08/12/23 Primary Care Physician: Dr. Rehana Hernandez MD Consultations 08/07/23 18:53 Consult: General Surgery Routine Consulting Provider: Gustabo Moralez Reason for Consult: Acute Sigmoid Diverticulitis - Recurrent EMERGENT Consult: No MD Notified: Yes Date Notified: 08/07/23 Time Notified: 16:18 Method of Notification: Verbal Reason For Visit: ACUTE SIGMOID DIVERTICULITIS Diagnosis Discharge Diagnosis (1) Sigmoid diverticulitis: Status: Acute Code(s): K57.32 - Diverticulitis of large intestine without perforation or abscess without bleeding Plan 1. Acute sigmoid diverticulitis 2. Chronic kidney disease stage III 3. Mild intermittent asthma 4. Glaucoma Medications at Discharge Home Medications pvvddojt-iqt-nztye ac 400 mcg-calcium carb 500 mg-vit K1 20 mcg tablet 1 ea PO DAILY supplement 07/28/19 calcifediol 30 mcg capsule,24 hr,extended release (Rayaldee) 30 mcg PO DAILY DEFICIENCY 08/07/23 dapagliflozin propanediol 10 mg tablet (Farxiga) 10 mg PO QHS KIDNEY 08/07/23 levalbuterol HCl 1.25 mg/3 mL solution for nebulization 1.25 mg inhalation PRN ASTHMA 08/07/23 tafluprost (PF) 0.0015 % eye drops in a dropperette 1 drp ophthalmic (eye) QHS 08/07/23 albuterol sulfate 90 mcg/actuation aerosol inhaler 2 inh inhalation Q4H PRN shortness of breath or wheezing 08/08/23 ciprofloxacin HCl 500 mg tablet (Cipro) 500 mg PO BID 9 days #18 tabs 08/12/23 metronidazole 500 mg tablet 500 mg PO TID 9 days #27 tabs 08/12/23 Hospital Course Summary of Care Provided Minutes Spent on Discharge: 40 Hospital Course: 57-year-old female with history of asthma, glaucoma, CKD presented to [facility] 09/04/2023 with abdominal pain and was found to have acute sigmoid diverticulitis and was started on Cipro and Flagyl and consult was placed to general surgery. Diet was slowly advanced and patient provided with supportive care. Did have more pain 08/10 when diet was advanced and due to patient not tolerating it repeat CT scan obtained which showed improved sigmoid diverticulitis without abscess or perforation. Her diet was backed off and then readvanced slowly. Patient did improve with diet advancement. Discharge instructions as follows: DISCHARGE INSTRUCTIONS PLEASE READ *Please take this with you to your next doctors appointment* -You will be discharged on ciprofloxacin and metronidazole, these prescriptions were called into your [facility] pharmacy on file -Please follow-up with surgery clinic upon discharge. Please call their office to schedule hospital follow-up appointment upon discharge. -Eat a diet low in fiber while recovering. -Foods to include: flake cereal, mashed potatoes, pancakes, waffles, pasta, white bread, rice, applesauce, bananas, eggs, fish, poultry, tofu, and well-cooked vegetables -Drink 6 to 8 glasses of water every day, unless told otherwise -Use a heating pad or hot water bottle to reduce abdominal cramping or pain -If you have not had a colonoscopy within the past year it is recommended that you have one in 6 to 8 weeks. This can be coordinated through your primary care physician's office or surgery clinic office -Please call your primary care provider's office upon discharge to schedule a hospital follow up within 1 week. -For any concerning signs or symptoms please call 911 or proceed to the nearest emergency department Physical Exam Narrative General: Alert, oriented, no apparent distress HEENT: Atraumatic, normocephalic Eyes: extraocular movements grossly intact Neck: Supple Respiratory: normal respiratory effort Cardiovascular: no edema appreciated GI: nondistended, no rebound, guarding, rigidity Extremities: Moving all extremities Neuro: No overt focal neurological deficits Psych: Cooperative Weight / BMI Weight Weight: 72.3 kg Body Mass Index (BMI) 28.2 ABG / Lab / Microbiology Data 08/12/23 07:25 08/12/23 07:25 Laboratory: Laboratory Results - last 24 hr 08/12/23 07:25: WBC 3.5 L, RBC 4.15 L, Hgb 12.4, Hct 38.0, MCV 91.6, MCH 29.9, MCHC 32.6, RDW Std Deviation 44.8 H, RDW Coeff of Darlene 13.3, Plt Count 279, MPV 8.9, Immature Gran % (Auto) 0.300, Neut % (Auto) 44.9 L, Lymph % (Auto) 35.3, [place] % (Auto) 13.6 H, Eos % (Auto) 4.8, Baso % (Auto) 1.1 H, Absolute Neuts (auto) 1.6 L, Absolute Lymphs (auto) 1.25, Nucleated RBC % 0, Sodium 142, Potassium 3.7, Chloride 114 H, Carbon Dioxide 25.0, Anion Gap 3 L, BUN 6 L, Creatinine 1.44 H, Estim Creat Clear Calc 34.80, Est GFR (MDRD) Af Amer 48 L, Est GFR (MDRD) Non-Af 40 L, BUN/Creatinine Ratio 4.2 L, Glucose 99, Calcium 8.7 D/C Instructions Discharge Diet: - (Low residue diet for 2 weeks) Meaningful Use Info Meaningful Use Diagnoses (Choose all that apply): None applicable Discharge Plan Admission Admit Date/Time: 08/07/23 16:07 Primary Reason for Your Visit: Diverticulitis Attending Provider: Letha Hebert Primary Care Provider: Rehana Hernandez Consulting Providers: Gustabo Moralez; Howard Gomes; Letha Hebert; Howard Gaston Instructions Patient Instructions: Diverticulitis Dc Additional Instructions / Restrictions: DISCHARGE INSTRUCTIONS PLEASE READ *Please take this with you to your next doctors appointment* -You will be discharged on ciprofloxacin and metronidazole, these prescriptions were called into your [facility] pharmacy on file -Please follow-up with surgery clinic upon discharge. Please call their office to schedule hospital follow-up appointment upon discharge. -Eat a diet low in fiber while recovering. -Foods to include: flake cereal, mashed potatoes, pancakes, waffles, pasta, white bread, rice, applesauce, bananas, eggs, fish, poultry, tofu, and well-cooked vegetables -Drink 6 to 8 glasses of water every day, unless told otherwise -Use a heating pad or hot water bottle to reduce abdominal cramping or pain -If you have not had a colonoscopy within the past year it is recommended that you have one in 6 to 8 weeks. This can be coordinated through your primary care physician's office or surgery clinic office -Please call your primary care provider's office upon discharge to schedule a hospital follow up within 1 week. -For any concerning signs or symptoms please call 911 or proceed to the nearest emergency department Discharge Orders/Prescriptions Prescriptions: New ciprofloxacin HCl [Cipro] 500 mg tablet 500 mg PO BID 9 Days Qty: 18 0RF metronidazole 500 mg tablet 500 mg PO TID 9 Days Qty: 27 0RF No Action gl-[id number]-rtqhr-calcium carb-K1 1 EACH tablet 1 ea PO DAILY Rayaldee 30 mcg capsule,extended release 24 hr 30 mcg PO DAILY Farxiga 10 mg tablet 10 mg PO QHS levalbuterol HCl 1.25 mg/3 mL solution for nebulization 1.25 mg INHALATION PRN tafluprost (PF) 0.0015 % dropperette 1 drp ophthalmic (eye) QHS Patient Comments: INSTILL 1 DROP INTO BOTH EYES EVERY EVENING DIRECTED albuterol sulfate 90 mcg/actuation HFA aerosol inhaler 2 inh inhalation Q4H PRN (Reason: shortness of breath or wheezing) Referrals / Follow Up: Rehana Hernandez MD [Primary Care Provider] - Gustabo Moralez MD [Med Staff - Active Staff] - 08/26/23 (Please contact our office to schedule an appointment 2 weeks from discharge. ) Disposition Disposition (needs filled in before D/C Order can be placed): Home, Self Care Charges/Coding Visit Charges Inpatient E&M: 89708 Disch Hosp >30min
--- NOTE | 2023-08-12 10:50 | PHA.DC.MC.R ---
Pharmacy [facility] has performed discharge medication reconciliation and counseling for this patient. The patient's discharge medication list was reviewed for discrepancies and discrepancies were resolved. The patient was counseled on the following discharge medications and changes in medications for homegoing were reviewed. The Reason for Use, instructions for use, and potential side effects were reviewed for all new medications. The patient's questions regarding all of their medications were answered.\ 1. Ciprofloxacin 500 mg PO BID x 9 days 2. Metronidazole 500 mg PO TID x 9 days The patient was able to verbally demonstrate an understanding of their discharge medications. The patient was counselled on new medications by pharmacy technician trainee Leon. Medications at Discharge Home Medications qudfkbwu-kix-sbkeo ac 400 mcg-calcium carb 500 mg-vit K1 20 mcg tablet 1 ea PO DAILY supplement 07/28/19 calcifediol 30 mcg capsule,24 hr,extended release (Rayaldee) 30 mcg PO DAILY DEFICIENCY 08/07/23 dapagliflozin propanediol 10 mg tablet (Farxiga) 10 mg PO QHS KIDNEY 08/07/23 levalbuterol HCl 1.25 mg/3 mL solution for nebulization 1.25 mg inhalation PRN ASTHMA 08/07/23 tafluprost (PF) 0.0015 % eye drops in a dropperette 1 drp ophthalmic (eye) QHS 08/07/23 albuterol sulfate 90 mcg/actuation aerosol inhaler 2 inh inhalation Q4H PRN shortness of breath or wheezing 08/08/23 ciprofloxacin HCl 500 mg tablet (Cipro) 500 mg PO BID 9 days #18 tabs 08/12/23 metronidazole 500 mg tablet 500 mg PO TID 9 days #27 tabs 08/12/23
--- NOTE | 2023-08-12 11:40 | CASEMGMT ---
RN CM into pt room, pt dressed and ready for dc. Pt denies any homegoing needs.
[2023-08-12 12:00] VITALS: BP 161/82; PULSE 64; RESP 18; TEMP 36.8; O2SAT 99
== END 2023-08-12 12:08 | disposition home or self-care (01) | DRG 392 ==
LOC: ED 15:07 → MS3 08-08 07:20
PROVIDERS: Internal Medicine; Admitting Provider Internal Medicine; Emergency Provider Emergency Medicine; PCP Family Medicine; Visit Provider Internal Medicine
DX: K57.32 Diverticulitis of large intestine without perforation or abscess without bleeding (principal); E66.3 Overweight; N18.30 Chronic kidney disease, stage 3 unspecified; J45.20 Mild intermittent asthma, uncomplicated; H40.9 Unspecified glaucoma; Z79.899 Other long term (current) drug therapy; Z87.891 Personal history of nicotine dependence; Z68.28 Body mass index [BMI] 28.0-28.9, adult; Z88.0 Allergy status to penicillin
CPT/HCPCS: 36415; 74177; 80048; 80053; 83735; 84100; 85025; 99285; J7030; Q9967; A4216; J0744; J2405

== ENCOUNTER 2023-10-21 05:57 | Day surgery (SDC) | payer BC, SELFPAY ==
[2023-10-21] VITALS (7 sets, daily range): BP systolic 98–141; BP diastolic 47–84; PULSE 67–84; RESP 16–18; TEMP 36.1–36.6; O2SAT 97–100; BMI 28.9
--- OUTSIDE RECORDS SUMMARY | 2023-10-21 06:14 | XMS RPT_ITS | CCD ---
Author Name Unknown Address [address] [place] [address] Organization [facility] Care Team Providers Care Core Worker Name Role Phone Rehana Hernandez Unavailable Zen Hansen MD Unavailable REHANA HERNANDEZ S Unavailable Unavailable DAVID REHANA S Unavailable Unavailable CURT DUNLAP Unavailable Unavailabl e CURT DUNLAP B Unavailable Unavailabl e CURT DUNLAP B Unavailable Unavailabl e CURT DUNLAP B Unavailable Unavailabl e Vera Carr Unavailable Unavailabl e Vera Carr Unavailable Unavailabl e Unavailable Primary Care Provider Unavaildes Hernandez MD, Rehana Hammer Primary Care Provider 1( [phone] Free, Text Entry Unavailable Unavailable Jose Cordero Unavailable RASHAD BLANCO Attending Unavailable DAVID REHANA JEREMY Primary Care Unavailable KENYA DAVILA Attending Unavailable CLINTIFF, REHANA JEREMY Primary Care Unavailable XIMENA JOHN Attending Unavailable DAVID, REHANA JEREMY Primary Care Unavailable XIMENA JOHN Attending Unavailable DAVID REHANA JEREMY Primary Care Unavailable XIMENA JOHN Attending Unavailable DAVID REHANA JEREMY Primary Care Unavailable Ximena John MD Unavailable JARVIS SHOTR Attending Unavailable REHANA HERNANDEZ JEREMY Primary Care Unavailable BETY, ROGELIO Admitting Unavailable [facility], [facility] Consulting Unavai lable EXTEN, XIMENA VASQUEZ Consulting Unavailable EXTEN, XIMENA VASQUEZ Attending Unavailable EXTEN, XIMENA VASQUEZ Referring Unavailable JOLLIFF, REHANA JEREMY Primary Care Unavailable EXTEN, XIMENA VASQUEZ Attending Unavailable EXTEN, XIMENAMAXIM BROE Referring Unavailable JOLLIFF, REHANA JEREMY Primary Care Unavailable EXTEN, XIMENAMAXIM VASQUEZ Admitting Unavailable SANDY MANRIQUE Attending Unavailable EXTEN, XIMENAMAXIM VASQUEZ Referring Unavailable JOLLIFF, REHANA JEREMY Primary Care Unavailable EXTEN, XIMENAMAXIM VASQUEZ Admitting Unavailable DEBRA ANAND Attending Unavailable EXTEN, XIMENAMAXIM VASQUEZ Referring Unavailable JOLLIFF, REHANA JEREMY Primary Care Unavailable EXTEN, XIMENAMAXIM VASQUEZ Admitting Unavailable MILENA YANCEY Attending Unavailable EXTEN, XIMENAMAXIM VASQUEZ Referring Unavailable JOLLIFF, REHANA JEREMY Primary Care Unavailable EXTEN, XIMENAMAXIM VASQUEZ Admitting Unavailable SANDY MANRIQUE Attending Unavailable EXTEN, XIMENAMAXIM VASQUEZ Referring Unavailable JOLLIFF, REHANA JEREMY Primary Care Unavailable CHASIDYELLOKENYA Attending Unavailable FANELLOKENYA Referring Unavailable JOLLIFF, REHANA JEREMY Primary Care Unavailable EXTEN, XIMENAMAXIM VASQUEZ Admitting Unavailable SANDY MANRIQUE Attending Unavailable EXTEN, XIMENAMAXIM VASQUEZ Referring Unavailable JOLLIFF, REHANA JEREMY Primary Care Unavailable EXTEN, XIMENAMAXIM VASQUEZ Admitting Unavailable SANDY MANRIQUE Attending Unavailable EXTEN, XIMENAMAXIM VASQUEZ Referring Unavailable JOLLIFF, REHANA JEREMY Primary Care Unavailable EXTEN, XIMENAMAXIM VASQUEZ Admitting Unavailable CELY REYES Attending Unavailable EXTEN, XIMENAMAXIM VASQUEZ Referring Unavailable JOLLIFF, REHANA JEREMY Primary Care Unavailable EXTEN, XIMENAMAXIM VASQUEZ Admitting Unavailable SANDY MANRIQUE Attending Unavailable EXTEN, XIMENAMAXIM BROE Referring Unavailable JOLLIFF, REHANA JEREMY Primary Care Unavailable EXTEN, XIMENAMAXIM VASQUEZ Admitting Unavailable NI VAN Attending Unavailable EXTEN, XIMENAMAXIM VASQUEZ Referring Unavailable JOLLIFF, REHANA JEREMY Primary Care Unavailable EXTEN, XIMENAMAXIM BROE Admitting Unavailable MILENA YANCEY Attending Unavailable EXTEN, XIMENAMAXIM BROE Referring Unavailable JOLLIFF, REHANA JEREMY Primary Care Unavailable EXTEN, XIMENAMAXIM VASQUEZ Admitting Unavailable SANDY MANRIQUE Attending Unavailable EXTEN, XIMENAMAXIM VASQUEZ Referring Unavailable JOLLIFF, REHANA JEREMY Primary Care Unavailable EXTEN, XIMENA BOWEN Admitting Unavailable HILARIASANDY ALVAREZ Attending Unavailable EXTEN, XIMENA BOWEN Referring Unavailable JOLLIFF, REHANA JEREMY Primary Care Unavailable EXTEN, XIMENA BOWEN Admitting Unavailable HALMDEBRA Attending Unavailable EXTEN, XIMENA BOWEN Referring Unavailable JOLLIFF, REHANA JEREMY Primary Care Unavailable EXTEN, XIMENA BOWEN Admitting Unavailable HILARIASANDY ALVAREZ Attending Unavailable EXTEN, XIMENA OBWEN Referring Unavailable JOLLIFF, REHANA JEREMY Primary Care Unavailable EXTEN, XIMENA BOWEN Admitting Unavailable HILARIASANDY ALVAREZ Attending Unavailable EXTEN, XIMENA BOWEN Referring Unavailable JOLLIFF, REHANA JEREMY Primary Care Unavailable EXTEN, XIMENA BOWEN Admitting Unavailable CHAVATZNI ROLAND Attending Unavailable EXTEN, XIMENA BOWEN Referring Unavailable JOLLIFF, REHANA JEREMY Primary Care Unavailable EXTEN, XIMENA BOWEN Admitting Unavailable HALM, DEBRA Attending Unavailable EXTEN, XIMENA BOWEN Referring Unavailable JOLLIFF, REHANA JEREMY Primary Care Unavailable EXTEN, XIMENA BOWEN Admitting Unavailable TIFFANYTZNI ROLAND Attending Unavailable EXTEN, XIMENA BOWEN Referring Unavailable JOLLIFF, REHANA JEREMY Primary Care Unavailable EXTEN, XIMENA BOWEN Admitting Unavailable HILARIASANDY ALVAREZ Attending Unavailable EXTEN, XIMENA BOWEN Referring Unavailable JOLLIFF, REHANA JEREMY Primary Care Unavailable EXTEN, XIMENA BOWEN Admitting Unavailable HILARIASANDY ALVAREZ Attending Unavailable EXTEN, XIMENA BOWEN Referring Unavailable JOLLIFF, REHANA JEREMY Primary Care Unavailable EXTEN, XIMENA BOWEN Admitting Unavailable HALMDEBRA Attending Unavailable EXTEN, XIMENA BOWEN Referring Unavailable JOLLIFF, REHANA JEREMY Primary Care Unavailable EXTEN, XIMENA BOWEN Admitting Unavailable HILARIASANDY ALVAREZ Attending Unavailable EXTEN, XIMENA BOWEN Referring Unavailable JOLLIFF, REHANA JEREMY Primary Care Unavailable EXTEN, XIMENA BOWEN Admitting Unavailable HALM, DEBRA Attending Unavailable EXTEN, XIMENA BOWEN Referring Unavailable JOLLIFF, REHANA JEREMY Primary Care Unavailable JOLLIFF, REHANA JEREMY Primary Care Unavailable EGALJESSIKA Attending Unavailabl e EXTEN, XIMENA BOWEN Admitting Unavailable HILARIASANDY ALVAREZ Attending Unavailable EXTEN, XIMENA BOWEN Referring Unavailable JOLLIFF, REHANA JEREMY Primary Care Unavailable David CABRERA, [facility] Primary Care Provider 1( [phone] Rehana Hernandez MD S Primary Care Provider Rehaan Hernandez MD Primary Care Provider CRISELDA, RUDY Referring Unavailable CRISELDA, RUDY Attending Unavailable JOLLIFF, REHANA S Primary Care Unavailable SELF, SELF Referring Unavailable JOLLIFF, REHANA S Primary Care Unavailable CRISELDA, RUDY Attending Unavailable JOLLIFF, REHANA S Primary Care Unavailable CRISELDA, RUDY Referring Unavailable CRISELDA, RUDY Attending Unavailable JOLLIFF, REHANA S Primary Care Unavailable CLEVELAND, MARKIE Referring Unavailable CLEVELAND, MARKIE Attending Unavailable SELF, SELF Referring Unavailable CRISELDA, RUDY Attending Unavailable JOLLIFF, REHANA S Primary Care Unavailable CRISELDA, RUDY Attending Unavailable CRISELDA, RUDY Referring Unavailable JOLLIFF, REHANA S Primary Care Unavailable DEBRA MAX Attending Unavailable JOLLIFF, REHANA S Primary Care Unavailable RENÉE ARAUJO Referring Unavailable JOLLIFF, REHANA S Primary Care Unavailable ZEN ALEXANDER Attending Unavailable JOLLIFF, REHANA S Primary Care Unavailable MALDONADO BETH Attending Unavailable SELF, SELF Referring Unavailable CRISELDA, RUDY Attending Unavailable JOLLIFF, REHANA S Primary Care Unavailable CRISELDA, RUDY Attending Unavailable JOLLIFF, REHANA S Primary Care Unavailable CRISELDA, RUDY Referring Unavailable JOLLIFF, REHANA S Primary Care Unavailable CRISELDA, RUDY Referring Unavailable CRISELDA, RUDY Attending Unavailable JAROD SÁNCHEZ Attending Unavailable SELF, SELF Referring Unavailable JOLLIFF, REHANA S Primary Care Unavailable JOLLIFF, REHANA S Primary Care Unavailable CRISELDA, RUDY Attending Unavailable CRISELDA, RUDY Referring Unavailable SELF, SELF Referring Unavailable CRISELDA, RUDY Attending Unavailable JOLLIFF, REHANA S Primary Care Unavailable CRISELDA, RUDY Attending Unavailable JOLLIFF, REHANA S Primary Care Unavailable CRISELDA, RUDY Referring Unavailable JOLLIFF, REHANA S Primary Care Unavailable CLEVELAND, MARKIE Attending Unavailable CRISELDA, RUDY Referring Unavailable SELF, SELF Referring Unavailable JOLLIFF, REHANA S Primary Care Unavailable CRISELDA, RUDY Attending Unavailable SELF, SELF Referring Unavailable JOLLIFF, REHANA S Primary Care Unavailable CRISELDA, RUDY Attending Unavailable CRISELDA, RUDY Attending Unavailable CRISELDA, RUDY Referring Unavailable JOLLIFF, REHNAA S Primary Care Unavailable SELF, SELF Referring Unavailable CRISELDA, RUDY Attending Unavailable JOLLIFF, REHANA S Primary Care Unavailable DEBRA MAX Attending Unavailable SELF, SELF Referring Unavailable REHANA HERNANDEZ Primary Care Unavailable REHANA HERNANDEZ Primary Care Unavailable DEBRA MAX Attending Unavailable REHANA HERNANDEZ Primary Care Unavailable DEBRA MAX Referring Unavailable Allergies Allergy Classification Reported Allergen(s) Allergy Type Date of Onset Reaction(s) Facility (20 sources) albuterol; Translations: [ALBUTEROL] drug allergy 2 Shortness Of Breath [facility] Work Phone: (20 sources) codeine; Translations: [CODEINE] drug allergy 2 Other [facility] Work Phone: (2 sources) morphine drug allergy 2 [facility] Work Phone: (20 sources) Penicillins; Translations: [PENICILLINS] drug allergy 2 Rash [facility] Work Phone: (20 sources) Morphine; Translations: [MORPHINE] Drug Allergy 2 Hives/Urticaria [facility] (3 sources) Penicillin Drug Allergy Rash [facility] (1 source) Albuterol Drug Allergy 3 difficulty [address] [facility] Work Phone: (1 source) Codeine Drug Allergy [address] [facility] Work Phone: (1 source) Morphine Drug Allergy [address] [facility] Work Phone: (1 source) Penicillin G Drug Allergy [address] [facility] Work Phone: (14 sources) DULoxetine Drug Allergy 3 [employer] [facility] (7 sources) Lisinopril Drug Allergy 3 [facility] [employer] [facility] (5 sources) Lisinopril Propensity to adverse reactions to drug 3 [facility] Medications Current Medications Medication Drug Class(es) Dates Sig (Normalized) Sig (Original) azithromycin 250 mg oral tablet (1 source) Macrolide Antimicrobial Start: 09-21-2023 End: 09-26-2023 Azithromycin 250 MG tablet Indications: Acute non-recurrent maxillary sinusitis Take by mouth 2 tablets (500 mg) on Day 1, then 1 tablet (250 mg) daily on Days 2-5 6 tablet 0 09/21/2023 09/26/2023 Active benzonatate 100 mg oral capsule (1 source) Non-narcotic Antitussive Start: 09-21-2023 take 1 capsule by mouth three times daily as needed for cough benzonatate 100 MG capsule Indications: Acute non-recurrent maxillary sinusitis Take 1 capsule by mouth 3 times daily as needed for Cough. 21 capsule 0 09/21/2023 Active brompheniramine maleate 0.4 mg/ml / dextromethorphan hydrobromide 2 mg/ml / pseudoephedrine hydrochloride 6 mg/ml oral solution (2 sources) alpha-Adrenergic Agonist, Uncompetitive M-bjrmeq-R-aspartat e Receptor Antagonist, Sigma-1 Agonist Start: 10-01-2021 take 5 mL by mouth four times daily brompheniramine/p seudoephedrine/de xtromethorphan [id number]/5 mL oral syrup ; 5 milliliter(s) orally 4 times a day Quantity: 200 Refills: 0 Ordered: 01-Oct-2021 Jose Cordero Start: 01-Oct-2021 Generic Substitution Allowed Comments: May cause drowsiness. Alcohol may intensify this effect. Use care when operating dangerous machinery.Obtain medical advice before taking any non-prescription drugs as some may affect the action of this medication. Completed/Discontinued Medications Medication Drug Class(es) Dates Sig (Normalized) Sig (Original) acetaminophen 325 mg oral tablet (1 source) Start: 07-31-2021 End: 08-03-2021 take 1 tablet by mouth every six hours acetaminophen (TYLENOL) tablet 650 mg acetaminophen 325 mg / HYDROcodone bitartrate 5 mg oral tablet (1 source) Opioid Agonist Start: 07-31-2021 End: 08-01-2021 take 1 tablet by mouth every four hours as needed 1 tablet, Oral, Every 4 hours PRN, moderate to severe pain, Starting on Fri07/31/21 at 1738 acetaminophen 325 mg / oxyCODONE hydrochloride 5 mg oral tablet (2 sources) Opioid Agonist Start: 05-15-2023 End: 05-15-2023 oxyCODONE-acetamino phen (PERCOCET) 5-325 MG per tablet 1 tablet Problems Active Problems Problem Classification Problem Date Documented Date Episodic/Chronic Acute and unspecified renal failure (1 source) Acute injury of kidney; Translations: [Acute kidney failure, unspecified] Episodic Asthma (14 sources) Uncomplicated mild persistent asthma; Translations: [Mild persistent asthma, uncomplicated] Onset: 10-09-2022 10-09-2022 Chronic Chronic kidney disease (20 sources) Chronic kidney disease stage 3B ; Translations: [Stage 3b chronic kidney disease] Onset: 10-09-2022 Chronic Chronic kidney disease (4 sources) Chronic kidney disease; Translations: [Chronic kidney disease, stage 3a] Onset: 10-09-2022 Disorders of lipid metabolism (14 sources) Hyperlipidemia; Translations: [Other hyperlipidemia] Onset: 10-09-2022 10-09-2022 Chronic Genitourinary symptoms and ill-defined conditions (2 sources) Increased frequency of urination; Translations: [Frequency of micturition] Episodic Other connective tissue disease (1 source) Swelling of right lower limb; Translations: [Other specified soft tissue disorders] Onset: 12-12-2021 12-12-2021 Episodic Other connective tissue disease (1 source) Pain of left calf; Translations: [Pain in left lower leg] Episodic Other connective tissue disease (1 source) Pain in left lower limb; Translations: [Pain in left leg] Episodic Other diseases of kidney and ureters (1 source) Hydronephrosis; Translations: [Unspecified hydronephrosis] Episodic Other injuries and conditions due to external causes (1 source) H/O: fracture; Translations: [Personal history of (healed) traumatic fracture] Onset: 12-12-2021 12-12-2021 Episodic Other injuries and conditions due to external causes (2 sources) Laceration - injury 04-20-2022 Episodic Past or Other Problems Problem Classification Problem Date Documented Da te Episodic/Chronic Administrative/social admission (1 source) Referral statuses; Translations: [Referral of patient] Episodic Fracture of lower limb (20 sources) Closed fracture of right ankle; Translations: [Other fracture of right lower leg, initial encounter for closed fracture] Onset: 07-31-2021 Episodic Influenza (1 source) Influenza due to Influenza A virus; Translations: [Influenza A] Episodic Nonspecific chest pain (3 sources) Chest pain; Translations: [Other chest pain] Onset: 01-16-2023 Episodic Open wounds of extremities (3 sources) Laceration of left thumb; Translations: [Laceration without foreign body of left thumb without damage to nail, initial encounter] Onset: 07-11-2023 07-11-2023 Episodic Other connective tissue disease (2 sources) Pain in left leg; Translations: [Pain in left leg] Onset: 01-16-2023 Episodic Other non-traumatic joint disorders (2 sources) Pain in wrist; Translations: [Pain in unspecified wrist] Onset: 07-13-2012 07-13-2012 Episodic Other non-traumatic joint disorders (5 sources) Pain in left knee; Translations: [Pain in joint, lower leg] Onset: 02-07-2023 Episodic Poisoning by nonmedicinal substances (3 sources) Bee sting; Translations: [Toxic effect of venom of bees, assault, initial encounter] Onset: 05-15-2023 05-15-2023 Episodic Residual codes; unclassified (1 source) Influenza-like symptoms; Translations: [Flu-like symptoms] Episodic Unclassified (1 source) Problem Unclassified (1 source) Acute cough; Translations: [Acute cough] Onset: 09-21-2023 Results Test Name Value Interpretation Reference Range Facil ity Vital Signs Date Time Vital Sign Value Performing Clinician Carolina toney 09-21-2023 09:01-0500 Body height 160 cm [facility] 09-21-2023 09:01-0500 Body mass index (BMI) [Ratio] 27.46 kg/m2 [facility] 09-21-2023 09:01-0500 Body temperature 97.11 [degF] [facility] 09-21-2023 09:01-0500 Body weight 70.31 kg [facility] 09-21-2023 09:01-0500 Diastolic blood pressure 68 mm[Hg] [facility] 09-21-2023 09:01-0500 Heart rate 74 /min [facility] 09-21-2023 09:01-0500 Respiratory rate 16 /min [facility] 09-21-2023 09:01-0500 SaO2% (BldA) [Mass fraction] 98 % [facility] 09-21-2023 09:01-0500 Systolic blood pressure 141 mm[Hg] [facility] 09-10-2023 08:50-0500 Body height 160 cm Debra Max DO Work Phone: [facility] 09-10-2023 08:50-0500 Body mass index (BMI) [Ratio] 29.02 kg/m2 Debra Max DO Work Phone: [facility] 09-10-2023 08:50-0500 Body temperature 97.7 [degF] Debra Max DO Work Phone: [facility] 09-10-2023 08:50-0500 Body weight 74.3 kg Debra Max DO Work Phone: [facility] 07-11-2023 13:48-0400 Diastolic blood pressure 91 mm[Hg] Zen Alexander MD Work Phone: [facility] Encounters Encounter Date Encounter Type Care Provider Facility Start: 10-15-2023 ambulatory SELF SELF [facility] Start: 10-14-2023 ambulatory REHANA HERNANDEZ [facility] Start: 09-21-2023 ambulatory JAROD SÁNCHEZ [facility] Start: 09-21-2023 End: 09-21-2023 Office outpatient visit 15 minutes Jarod Sánchez DIRECTOR METABOLISM-[facility] Work Phone: [facility] Procedures Date Procedure Procedure Detail Performing Clinician Start: 07-11-2023 Radex fingr minimum 2 views Zen Alexander MD Work Phone: Start: 01-16-2023 Urinalysis microscop ic only Renée Araujo PA-C Work Phone: Start: 01-16-2023 Urinalysis, reagent strip without microscopy Renée Araujo PA-C Work Phone: Start: 01-16-2023 Radiologic exam ches t single view Renée Araujo PA-[employer] Work Phone: Start: 01-16-2023 Albumin serum plasma /whole blood Renée Araujo PA-C Work Phone: Start: 01-16-2023 Complete blood count with white cell differential, automated Renée Araujo [facility] Work Phone: Start: 01-16-2023 Dup-scan xtr veins unilateral/limited study Renée Araujo PA[facility] Work Phone: Start: 11-29-2022 Urinalysis microscop ic only Markietanesha Cleveland RN [facility] Work Phone: Start: 11-29-2022 Urnls dip stick/tabl et rgnt auto w/o microscopy Markie Cleveland [facility] Work Phone: Start: 11-03-2022 Us retroperitoneal r eal time w/image complete Rudy Iniguez MD Work Phone: Start: 09-09-2022 Dup-scan xtr veins unilateral/limited study Manny Cervantes VANGIE-[employer] Work Phone: Start: 09-09-2022 Comprehensive metabo lic panel Manny Cervantes PA-[employer] Work Phone: Start: 12-12-2021 End: 12-12-2021 BP scrn no perf at interval Ximena John MD Work Phone: Start: 12-12-2021 End: 12-12-2021 Calc BMI abv up lyubov f/u Ximena John MD Work Phone: Start: 12-12-2021 End: 12-12-2021 Current tobacco non-user cad cap copd pv dm Ximena John MD Work Phone: Start: 12-12-2021 End: 12-12-2021 Docd contact that fx existed & pt tsted/txd op Ximena John MD Work Phone: Start: 12-12-2021 End: 12-12-2021 Docrev cur meds by rah John MD Work Phone: Start: 12-12-2021 End: 12-12-2021 Patient encounter procedure Ximena John MD Work Phone: Start: 12-12-2021 End: 12-12-2021 Pos pain assess no f/u doc Ximena John MD Work Phone: Start: 08-03-2021 Basic metabolic pane l calcium total Yane Tabitha Woodson RN [facility] Work Phone: Start: 08-02-2021 Basic metabolic pane l calcium total Vanessa Jane Qiana RN [facility] Work Phone: Start: 08-01-2021 Radiologic examinati on ankle 2 views Ximena John MD Work Phone: Start: 08-01-2021 End: 08-01-2021 OPEN REDUCTION INTERNAL FIXATION ANKLE FRACTURE Ximena John MD Work Phone: Start: 08-01-2021 Comprehensive metabo lic panel Rogelio hSaw MD Work Phone: Start: 07-31-2021 Application of splint L miguel Cleveland PA-C Work Phone: Start: 07-31-2021 SARS-CoV-2 (COVID-19 ) RdRp gene [Presence] in Respiratory specimen by YUNG with probe detection Argenis BARBOSAC Work Phone: Start: 07-31-2021 Blood count complete auto&auto difrntl wbc Argenis BARBOSAC Work Phone: Start: 07-31-2021 Ct lower extremity w /o contrast material Argenis Cleveland PA-C Work Phone: Start: 07-31-2021 End: 07-31-2021 Radex ankle complete minimum 3 views Argenis Cleveland PA-C Work Phone: Start: 12-17-2018 Iaadiadoo influenza Hol clinton Aliyah Bora Work Phone: NEGATED: Highlighted rowStart: 12-12-2021 End: 12-12-2021 Documentation of current medications Anai Kunz SHAKIRA Plan of Treatment Date Care Activity Detail Author Start: 11-28-2023 End: 11-28-2023 Patient encounter procedure [facility] Start: 10-15-2023 End: 10-15-2023 Patient encounter procedure 10/15/2023 3:30 PM EST Office Visit [facility] [address] [place] [address] Rudy Iniguez MD [address] [place] [address] [facility] Start: 09-10-2023 End: 09-10-2024 MR Knee - left WO contrast MRI KNEE LEFT WITHOUT CONTRAST Imaging Routine Chronic pain of left knee Expected: 09/10/2023, Expires: 09/10/2024 [facility] Immunizations Immunization Date Immunization Notes Care Provider Fa cility 06-22-2020 influenza virus vaccine, unspecified formulation Rehana Hernandez MD Work Phone: [facility] Payers Date Payer Category Payer Unknown ROBERTH JACOBSEN/DANIELA/HMO/PPO [id number] 2019-Present [phone] [address] [place] [address] [id number] 2018 Unknown [id number] 1.13.385.2.7.3 .[id number] 2018 Unknown [id number] 2016 Unknown ROBERTH LEPE O PPO POS xxxxxxxxxxxx 2016-Present xxxxxxxxxxxx [id number] .[id number] 1963 Unknown [id number] .840.1.432706.3.579.2 1963 Unknown [id number] .840.1.852921.3.579.2 1963 Unknown [id number] .840.1.822026.3.579. 1963 Unknown [id number] .840.1.872804.3.579.2 1963 Unknown [id number] 840.1.453095.3.579. 1963 Unknown [id number] .840.1.253375.3.579. 1963 Unknown [id number] .1.714058.3.579. 1963 Unknown [id number] .840.1.129235.3.579. 1963 Unknown [id number] 11.21.830.1.775542.3.579. 1963 Unknown [id number] 840.1.057423.3.579.2 1963 Unknown [id number] .1.181975.3.579. 1963 Unknown [id number] 840.1.293504.3.579.2 1963 Unknown [id number] 840.1.042084.3.579.2 1963 Unknown [id number] .840.1.772996.3.579.2 1963 Unknown [id number] 840.1.779052.3.579.2 1963 Unknown [id number] 2.16.840.1.875755.3.579.2.903 1963 Unknown [id number] 2.16.840.1.551130.3.579.2 1963 Unknown [id number] 2.16.840.1.653610.3.579.2 1963 Unknown [id number] 2.16.840.1.929598.3.579.2 1963 Unknown [id number] 2.16.840.1.096008.3.579.2 1963 Unknown [id number] 2.16.840.1.135404.3.579.2 1963 Unknown [id number] 2.16.840.1.602628.3.579.2 1963 Unknown [id number] 2.16.840.1.600765.3.579.2 1963 Unknown [id number] 2.16.840.1.262637.3.579.2 1963 Unknown [id number] 2.16.840.1.745178.3.579.2 1963 Unknown [id number] 2.16.840.1.928458.3.579.2 1963 Unknown [id number] 2.16.840.1.245260.3.579.2 1963 Unknown [id number] 2.16.840.1.706918.3.579.2 1963 Unknown [id number] 2.16.840.1.731169.3.579.2 1963 Unknown [id number] 2.16.840.1.473593.3.579.290 1963 Unknown [id number] 2.16.840.1.849951.3.579.2903 1963 Unknown [id number] 2.16.840.1.808592.3.579.2.903 1963 Unknown [id number] 2.16.840.1.959906.3.579.2 1963 Unknown [id number] 2.16.840.1.984139.3.579.2. 1963 Unknown [id number] 2.16.840.1.260129.3.579.298 1963 Unknown [id number] 2.16.840.1.007164.3.579.2.98 1963 Unknown [id number] 2.16840.1.901980.3.579.2 1963 Unknown [id number] [id number] 1965 Unknown [id number] 2.16840.1.682520.3.579.2 1965 Unknown [id number] 2.16840.1.026505.3.579.2 1965 Unknown [id number] 2.16840.1.957541.3.579.2 1965 Unknown [id number] 2.16840.1.623985.3.579.2 1965 Unknown [id number] 2.16840.1.190357.3.579.2.98 1965 Unknown [id number] 2.16.840.1.436776.3.579.2.98 1965 Unknown [id number] 2.16.840.1.563867.3.579.2.98 1965 Unknown [id number] 2.16.840.1.231601.3.579.2.983 1965 Unknown [id number] 2.16.840.1.465392.3.579.2.983 1965 Unknown [id number] 2.16.840.1.129620.3.579.2.983 1965 Unknown [id number] 2.16.840.1.888914.3.579.2.983 1965 Unknown [id number] 2.16.840.1.164180.3.579.2.983 1965 Unknown [id number] 2.16.840.1.598028.3.579.2.983 1965 Unknown [id number] 2.16.840.1.798073.3.579.2.983 1965 Unknown [id number] 2.16.840.1.142239.3.579.2.983 1965 Unknown [id number] 2.16.840.1.655674.3.579.2.983 1965 Unknown [id number] 2.16.840.1.196907.3.579.2.983 1965 Unknown [id number] 2.16.840.1.229375.3.579.2.983 1965 Unknown [id number] 2.16.840.1.250341.3.579.2.983 1965 Unknown [id number] 2.16.840.1.278163.3.579.2.983 Unknown [id number] 2.16.840.1.481641.3.249.13 Social History Date Type Detail Facility Start: 06-18-2017 Tobacco smoking status [facility] Unknown if ever smoked [facility] Work Phone: Start: 1965 Sex Assigned At Not on file [facility] Work Phone: Start: 12-17-2018 End: 09-09-2022 Tobacco smoking status [facility] Former smoker [facility] Start: 12-17-2018 Alcohol Comment social [facility] End: 07-31-1990 History of tobacco use Current smoker [facility] Start: 07-31-2021 End: 09-09-2022 Tobacco use and exposure Smokeless tobacco non-user [facility] Start: 08-02-2021 End: 09-21-2023 Alcohol intake Current drinker of alcohol (finding) [facility] Start: 07-31-2021 History SDOH Alcohol Comment socially [facility] Start: 10-22-2021 End: 05-15-2023 Exposure to SARS-CoV-2 (event) Not sure [facility] End: 07-31-1990 History of tobacco use Cigarette Smoker [facility] Start: 04-17-2023 End: 09-21-2023 History of Social function [facility] Start: 04-17-2023 End: 09-21-2023 Tobacco use panel [facility] Start: 08-11-2017 Gender identity Identifies as female gender (finding) [facility] NEGATED: Highlighted rowStart: 12-12-2021 End: 12-12-2021 Alcohol use Alcohol use [facility] Work Phone: NEGATED: Highlighted rowStart: 12-12-2021 End: 12-12-2021 Details of drug misuse behavior Details of drug misuse behavior [facility] Work Phone: NEGATED: Highlighted rowStart: 12-12-2021 End: 12-12-2021 Employment detail Employment detail [facility] Work Phone: NEGATED: Highlighted rowStart: 12-12-2021 End: 12-12-2021 Assertion Former smoker [facility] Work Phone: Medical Equipment Procedure Code Equipment Code Equipment Origin al Text Equipment Identifier Dates Screw 3.5 X 24mm Cortex Self-Tap - [id number] Start: 08-01-2021 Screw 3.5 X 24mm Locking Self-Tap Strdrv Rec - [id number] Start: 08-01-2021 Screw 3.5 X 18mm Locking Self-Tap Strdrv Rec - [id number] Start: 08-01-2021 Screw 4 X 40mm C leno Short Thrd - [id number] Start: 08-01-2021 Screw 3.5 X 26mm Locking Self-Tap Strdrv Rec - [id number] Start: 08-01-2021 Screw 3.5x34mm Cortex Self-Tap - [id number] Start: 08-01-2021 Screw 3.5 X 36mm Cortex Self-Tap - [id number] Start: 08-01-2021 Plate 57mm 5hl 1 /3 Tubular W/Collar Lcp - [id number] Start: 08-01-2021 Screw 3.5 X 14mm Self-Tap Cortex - [id number] Start: 08-01-2021 Screw 3.5x30mm Cortex Self-Tap - [id number] Start: 08-01-2021 Screw 3.5 X 10mm Locking Self-Tap Strdrv Rec - [id number] Start: 08-01-2021 Screw 3.5 X 12mm Locking Self-Tap Strdrv Rec - [id number] Start: 08-01-2021 Plate 81mm 7hl 1 /3 Tubular W/Collar Lcp - [id number] Start: 08-01-2021 Goals Date Patient Goal Desired Activity /State Clinical Notes 07-31-2021 to 09-21-2023 IVETH Wislon - 09/21/2023 8:35 AM Miguel Ángel Max, DO - 09/10/2023 8:00 AM Yi Mcnair - 09/10/2023 8:00 AM Miguel Ángel Max, DO - 09/10/2023 8:00 AM Cheli Instructions Note Date & Type Note Facility 09-21-2023 History of Presen t illness Narrative ROGERS Hutchison female 1965 presents to the [facility] with Chief Complaint Patient presents with Cough Onset 1 wk ago with sore throat and cough. Has asthma and is concerned about the cough 57-year-old female presents today with sore throat, cough and congestion. Patient has a history of asthma and states that upper respiratory infections typically trigger asthma exacerbations. Patient reports cough and wheezing throughout the past week worsening in the evening time. Patient has been using nebulizer albuterol solution 1-2 times daily with moderate relief. Patient denies shortness of breath, chest pain, dyspnea, dysphagia, fever, body aches, chills. History Allergies Allergen Reactions Albuterol Codeine Morphine Penicillins Duloxetine unknown Lisinopril Cough Current Outpatient Medications Medication Sig Calcifediol ER (Rayaldee) 30 MCG Cap CR Take 1 capsule by mouth every Friday, Friday and Friday. (Patient taking differently: Take 1 capsule by mouth once a week.) dapagliflozin (Farxiga) 10 MG tablet Take 1 tablet by mouth daily. Diclofenac sodium 1 % Gel gel Apply 4 g topically 2 times daily. Diclofenac sodium 1 % Gel gel Apply 4 g topically 2 times daily. diphenhydrAMINE 25 MG tablet Take 1 tablet by mouth every 6 hours as needed for Itching. levalbuterol 1.25 MG/3ML Nebu Soln Tafluprost, PF, 0.0015 % Solution INSTILL 1 DROP INTO BOTH EYES EVERY EVENING DIRECTED tiZANidine 4 MG tablet Take 1 tablet by mouth at bedtime as needed for Muscle spasms. Azithromycin 250 MG tablet Take by mouth 2 tablets (500 mg) on Day 1, then 1 tablet (250 mg) daily on Days 2-5 benzonatate 100 MG capsule Take 1 capsule by mouth 3 times daily as needed for Cough. predniSONE 20 MG tablet 2 tablets once a day for 5 days Family History Problem Relation Age of Onset Kidney Disease Mother Diabetes Mother Other - Specify Mother fibromyalgia Hypertension Mother Kidney Disease Sister Diabetes Maternal Aunt Diabetes Maternal Grandmother Past Medical History: Diagnosis Date Asthma CKD (chronic kidney disease) stage 3, GFR 30-59 ml/min Essential hypertension, benign Hyperlipidemia Past Surgical History: Procedure Laterality Date ARTHROPLASTY ANKLE TOTAL N/A 07/31/2022 HYSTERECTOMY REDUCTION REVISION BREAST RELEASE CARPAL TUNNEL N/A REMOVAL CATARACT (PEM) N/A Social History Socioeconomic History Marital status: Spouse name: Not on file Number of children: Not on file Years of education: Not on file Highest education level: Not on file Occupational History Not on file Tobacco Use Smoking status: Former Smokeless tobacco: Never Vaping Use Vaping Use: Never used Substance and Sexual Activity Alcohol use: Yes Comment: social Drug use: Never Sexual activity: Not Currently Partners: Male control/protection: Hysterectomy Other Topics Concern Service Not Asked Blood Transfusions Not Asked Caffeine Concern Not Asked Occupational Exposure Not Asked Hobby Hazards Not Asked Sleep Concern Not Asked Stress Concern Not Asked Weight Concern Not Asked Special Diet Not Asked Back Care Not Asked Exercise Not Asked Bike Helmet Not Asked Seat Belt Not Asked Domestic Violence No Social History Narrative Not on file Social Determinants of Health Financial Resource Strain: Not on file Food Insecurity: Not on file Transportation Needs: Not on file Physical Activity: Not on file Stress: Not on file Social Connections: Not on file Intimate Partner Violence: Not on file Housing Stability: Not on file ROS Review of Systems Constitutional: Negative for chills, fatigue and fever. HENT: Positive for congestion, postnasal drip, rhinorrhea, sinus pressure, sinus pain and sore throat. Respiratory: Positive for cough. Negative for chest tightness and wheezing. Cardiovascular: Negative. Negative for chest pain. Gastrointestinal: Negative for diarrhea, nausea and vomiting. Skin: Negative. Neurological: Negative. 8 systems reviewed with patient, negative unless specifically mentioned in history of present illness PHYSICAL EXAM Visit Vitals BP 141/68 (BP Location: Right arm, BP Position: Sitting) Pulse 74 Temp 97.1 F (36.2 C) (Temporal) Resp 16 Ht 1.6 m (5' 3 ) Wt 70.3 kg (155 lb) SpO2 98% BMI 27.46 kg/m Physical Exam Vitals and nursing note reviewed. Constitutional: General: She is not in acute distress. Appearance: She is well-developed. She is not diaphoretic. HENT: Head: Normocephalic and atraumatic. Right Ear: Hearing and external ear normal. A middle ear effusion is present. Tympanic membrane is erythematous. Left Ear: Hearing and external ear normal. A middle ear effusion is present. Tympanic membrane is erythematous. Nose: Rhinorrhea present. Right Sinus: Maxillary sinus tenderness present. No frontal sinus tenderness. Left Sinus: Maxillary sinus tenderness present. No frontal sinus tenderness. Mouth/Throat: Pharynx: Uvula midline. Posterior oropharyngeal erythema present. Eyes: General: No scleral icterus. Right eye: No discharge. Left eye: No discharge. Conjunctiva/sclera: Conjunctivae normal. Cardiovascular: Rate and Rhythm: Normal rate and regular rhythm. Heart sounds: Normal heart sounds. Pulmonary: Effort: Pulmonary effort is normal. No respiratory distress. Breath sounds: Normal breath sounds. No wheezing. Abdominal: General: Bowel sounds are normal. Palpations: Abdomen is soft. There is no mass. Tenderness: There is no abdominal tenderness. There is no guarding. Musculoskeletal: Cervical back: Normal range of motion and neck supple. Lymphadenopathy: Cervical: No cervical adenopathy. Skin: General: Skin is warm and dry. Neurological: Mental Status: She is alert and oriented to person, place, and time. Psychiatric: Behavior: Behavior normal. Thought Content: Thought content normal. Judgment: Judgment normal. RESULTS No results found for this or any previous visit (from the past 1 hour(s)). ASSESSMENT/PLAN 1. Acute non-recurrent maxillary sinusitis 2. Acute cough Orders Placed This Encounter benzonatate 100 MG capsule predniSONE 20 MG tablet Azithromycin 250 MG tablet Based on your symptoms and exam, you''ve been diagnosed with Acute maxillary sinusitis that is suspected to be bacterial. Please take antibiotics as prescribed and complete entire course. Per guidelines, antibiotic may be stopped after 7 days if full improvement in symptoms. If no improvement or worsening after 7 days, patient should be rechecked to confirm the diagnosis of ABRS. Nasal saline rinses can significantly alleviate sinus congestion and are available at most pharmacies. Fluticasone is a nasal steroid that can help reduce inflammation of the tissues within your nose - spray up and out as to decrease side effect of epistaxis. Keep well hydrated. You may use Ibuprofen or Tylenol as needed for discomfort or fever. Take with food. Discussed side effects and risks of medications with the patient. If symptoms worsen patient was advised to follow up in our office, primary care provider or the Emergency Dept. Benefits, Risks, Contraindications, and Complications of recommended treatments were explained. The patient understands and agrees to proceed with plan. IVETH Wilson 09/21/2023 documented in this encounter [facility] 09-10-2023 History of Presen t illness Narrative No notes on file Clinical field technical assistant/AT/MA was acting as a scribe today for this note. I have performed all essential components of the history, and physical exam. I have confirmed the diagnosis and developed a plan of care at this visit. I have reviewed the note following the visit and have made edits as appropriate to my evaluation and plan of care. Debra Max DO Chief Complaint Patient presents with Left Knee - Pain Pain Duration: January 2023, worse since being on Ciprofloxin for diverticulitis. (PCP took her off it) Pain Frequency: constant Pain Quality: aching, soreness (pulling, stiffness) Factors That Aggravate Pain: activity (prolong walking, standing, stairs, kneeling.) Factors That Relieve Pain: rest Chief Complaint Patient presents with Left Knee - Pain Pain Radiation To: back of knee Pain Duration: January 2023, worse since being on Ciprofloxin for diverticulitis. 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 Patient reports mechanical symptoms at times. Ultrasound from January 2023 was negative for DVT. History of CKD. Recently hospitalized for diverticulitis and was on Ciprofloxacin. She noted increased pain actually in both knees while on the medication, but now focal to the left knee. IMPRESSION/PLAN: Xrays from 02/07/23 demonstrated mild degenerative changes. Medical decision making has been discussed with patient including potential further work-up, surgical and non-surgical options. Continue current conservative treatment. Medication management: We will avoid oral NSAIDs due to history of CKD. Continue topical Diclofenac. Prescription for refill provided today, as well as Tizanidine. Ddx discussed which includes meniscus tear or other significant derangement which could require surgical intervention or change in treatment plan. Tried and failed conservative measures which has included greater than 6 weeks of therapy and/or directed home exercises in the last 6 months, NSAIDs or other analgesics, activity modification and other modalities. MRI of left knee needed to further direct treatment plan. This has been ordered and I will see the patient back for a [id number] encounter to review results, re-evaluate as needed and guide any further treatment. Red Flags for blood clot discussed, which would warrant immediate evaluation at the emergency department. Patient voices understanding. Follow up once MRI of left knee is complete. KNEE EXAM LEFT RIGHT Inspection No effusion. No deformity. No effusion. No deformity. Paltation No tenderness to palpation. No tenderness to palpation. ROM 0-130 degrees 0-130 degrees Strength 5/5 in flexion & extension 5/5 in flexion and extension Gait: Non-antalgic Yennifer: No laxity and firm end point. Posterior drawer: No laxity and firm end point. No laxity with varus/valgus maneuver. Thomas: Positive-LT. Reginald's: Negative. Visit Vitals Temp 97.7 F (36.5 C) (Temporal) Ht 1.6 m (5' 3 ) Wt 74.3 kg (163 lb 12.8 oz) BMI 29.02 kg/m *Time components listed in minutes below. This data may or may not be needed for insurance reimbursement purposes. Reviewing clinical note(s) from previous visit/ER/urgent care/PCP/other specialists 4 Review of medical history 4 Review of biomedical engineer or safety trainer note 4 Independently obtain and review medical history and history of present illness with patient 4 Other counseling and coordination of care 7 Updating patient chart, documentation of clinical encounter and signing of orders 7 Medication ordering and discussion of risks, benefits and alternatives 3 *Portions of this note may have been created with [employer] or other software which leads to grammatical and typographical errors which are not safety representative of the intent with my spoken words. Clinical field technical assistant/AT/MA was acting as a scribe today for this note. I have performed all essential components of the history, and physical exam. I have confirmed the diagnosis and developed a plan of care at this visit. I have reviewed the note following the visit and have made edits as appropriate to my evaluation and plan of care. 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 Patient reports mechanical symptoms at times. Ultrasound from January 2023 was negative for DVT. History of CKD. Recently hospitalized for diverticulitis and was on Ciprofloxacin. She noted increased pain actually in both knees while on the medication, but now focal to the left knee. IMPRESSION/PLAN: Xrays from 02/07/23 demonstrated mild degenerative changes. Medical decision making has been discussed with patient including potential further work-up, surgical and non-surgical options. Continue current conservative treatment. Medication management: We will avoid oral NSAIDs due to history of CKD. Continue topical Diclofenac. Prescription for refill provided today, as well as Tizanidine. Ddx discussed which includes meniscus tear or other significant derangement which could require surgical intervention or change in treatment plan. Tried and failed conservative measures which has included greater than 6 weeks of therapy and/or directed home exercises in the last 6 months, NSAIDs or other analgesics, activity modification and other modalities. MRI of left knee needed to further direct treatment plan. This has been ordered and I will see the patient back for a [id number] encounter to review results, re-evaluate as needed and guide any further treatment. Red Flags for blood clot discussed, which would warrant immediate evaluation at the emergency department. Patient voices understanding. Follow up once MRI of left knee is complete. KNEE EXAM LEFT RIGHT Inspection No effusion. No deformity. No effusion. No deformity. Paltation No tenderness to palpation. No tenderness to palpation. ROM 0-130 degrees 0-130 degrees Strength 5/5 in flexion & extension 5/5 in flexion and extension Gait: Non-antalgic Yennifer: No laxity and firm end point. Posterior drawer: No laxity and firm end point. No laxity with varus/valgus maneuver. Thomas: Positive-LT. Reginald's: Negative. Visit Vitals Temp 97.7 F (36.5 C) (Temporal) Ht 1.6 m (5' 3 ) Wt 74.3 kg (163 lb 12.8 oz) BMI 29.02 kg/m *Time components listed in minutes below. This data may or may not be needed for insurance reimbursement purposes. Reviewing clinical note(s) from previous visit/ER/urgent care/PCP/other specialists 4 Review of medical history 4 Review of biomedical engineer or safety trainer note 4 Independently obtain and review medical history and history of present illness with patient 4 Other counseling and coordination of care 7 Updating patient chart, documentation of clinical encounter and signing of orders 7 Medication ordering and discussion of risks, benefits and alternatives 3 *Portions of this note may have been created with [employer] or other software which leads to grammatical and typographical errors which are not safety representative of the intent with my spoken words. Chief Complaint Patient presents with Left Knee - Pain Pain Radiation To: back of knee Pain Duration: January 2023, worse since being on Ciprofloxin for diverticulitis. 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 Patient reports mechanical symptoms at times. Ultrasound from January 2023 was negative for DVT. History of CKD. Recently hospitalized for diverticulitis and was on Ciprofloxacin. She noted increased pain actually in both knees while on the medication, but now focal to the left knee. IMPRESSION/PLAN: Xrays from 02/07/23 demonstrated mild degenerative changes. Medical decision making has been discussed with patient including potential further work-up, surgical and non-surgical options. Continue current conservative treatment. Medication management: We will avoid oral NSAIDs due to history of CKD. Continue topical Diclofenac. Prescription for refill provided today, as well as Tizanidine. Ddx discussed which includes meniscus tear or other significant derangement which could require surgical intervention or change in treatment plan. Tried and failed conservative measures which has included greater than 6 weeks of therapy and/or directed home exercises in the last 6 months, NSAIDs or other analgesics, activity modification and other modalities. MRI of left knee needed to further direct treatment plan. This has been ordered and I will see the patient back for a tnuf-cm-urmt encounter to review results, re-evaluate as needed and guide any further treatment. Red Flags for blood clot discussed, which would warrant immediate evaluation at the emergency department. Patient voices understanding. Follow up once MRI of left knee is complete. KNEE EXAM LEFT RIGHT Inspection No effusion. No deformity. No effusion. No deformity. Paltation No tenderness to palpation. No tenderness to palpation. ROM 0-130 degrees 0-130 degrees Strength 5/5 in flexion & extension 5/5 in flexion and extension Gait: Non-antalgic Yennifer: No laxity and firm end point. Posterior drawer: No laxity and firm end point. No laxity with varus/valgus maneuver. Thomas: Positive-LT. Reginald's: Negative. Visit Vitals Temp 97.7 F (36.5 C) (Temporal) Ht 1.6 m (5' 3 ) Wt 74.3 kg (163 lb 12.8 oz) BMI 29.02 kg/m *Time components listed in minutes below. This data may or may not be needed for insurance reimbursement purposes. Reviewing clinical note(s) from previous visit/ER/urgent care/PCP/other specialists 4 Review of medical history 4 Review of biomedical engineer or safety trainer note 4 Independently obtain and review medical history and history of present illness with patient 4 Other counseling and coordination of care 7 Updating patient chart, documentation of clinical encounter and signing of orders 7 Medication ordering and discussion of risks, benefits and alternatives 3 *Portions of this note may have been created with [employer] or other software which leads to grammatical and typographical errors which are not safety representative of the intent with my spoken words. Clinical field technical assistant/AT/MA was acting as a scribe today for this note. I have performed all essential components of the history, and physical exam. I have confirmed the diagnosis and developed a plan of care at this visit. I have reviewed the note following the visit and have made edits as appropriate to my evaluation and plan of care. 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 Patient reports mechanical symptoms at times. Ultrasound from January 2023 was negative for DVT. History of CKD. Recently hospitalized for diverticulitis and was on Ciprofloxacin. She noted increased pain actually in both knees while on the medication, but now focal to the left knee. IMPRESSION/PLAN: Xrays from 02/07/23 demonstrated mild degenerative changes. Medical decision making has been discussed with patient including potential further work-up, surgical and non-surgical options. Continue current conservative treatment. Medication management: We will avoid oral NSAIDs due to history of CKD. Continue topical Diclofenac. Prescription for refill provided today, as well as Tizanidine. Ddx discussed which includes meniscus tear or other significant derangement which could require surgical intervention or change in treatment plan. Tried and failed conservative measures which has included greater than 6 weeks of therapy and/or directed home exercises in the last 6 months, NSAIDs or other analgesics, activity modification and other modalities. MRI of left knee needed to further direct treatment plan. This has been ordered and I will see the patient back for a [id number] encounter to review results, re-evaluate as needed and guide any further treatment. Red Flags for blood clot discussed, which would warrant immediate evaluation at the emergency department. Patient voices understanding. Follow up once MRI of left knee is complete. KNEE EXAM LEFT RIGHT Inspection No effusion. No deformity. No effusion. No deformity. Paltation No tenderness to palpation. No tenderness to palpation. ROM 0-130 degrees 0-130 degrees Strength 5/5 in flexion & extension 5/5 in flexion and extension Gait: Non-antalgic Yennifer: No laxity and firm end point. Posterior drawer: No laxity and firm end point. No laxity with varus/valgus maneuver. Thomas: Positive-LT. Reginald's: Negative. Visit Vitals Temp 97.7 F (36.5 C) (Temporal) Ht 1.6 m (5' 3 ) Wt 74.3 kg (163 lb 12.8 oz) BMI 29.02 kg/m *Time components listed in minutes below. This data may or may not be needed for insurance reimbursement purposes. Reviewing clinical note(s) from previous visit/ER/urgent care/PCP/other specialists 4 Review of medical history 4 Review of biomedical engineer or safety trainer note 4 Independently obtain and review medical history and history of present illness with patient 4 Other counseling and coordination of care 7 Updating patient chart, documentation of clinical encounter and signing of orders 7 Medication ordering and discussion of risks, benefits and alternatives 3 *Portions of this note may have been created with [employer] or other software which leads to grammatical and typographical errors which are not safety representative of the intent with my spoken words. Clinical field technical assistant/AT/MA was acting as a scribe today for this note. I have performed all essential components of the history, and physical exam. I have confirmed the diagnosis and developed a plan of care at this visit. I have reviewed the note following the visit and have made edits as appropriate to my evaluation and plan of care. Debra Max DO documented in this encounter [facility] 07-11-2023 Emergency departm ent Note Discharge instructions reviewed with patient who verbalizes clear understanding. They deny any further concern or question. Patient wound wrapped per provider order. Patient left unit alone and demonstrating a steady gait. [facility] 07-11-2023 Emergency departm ent Note Discharge instructions reviewed with patient who verbalizes clear understanding. They deny any further concern or question. Patient wound wrapped per provider order. Patient left unit alone and demonstrating a steady gait. Emergency Room Note [facility] EMERGENCY DEPARTMENT Service Date:.07/11/23 PCP: Rehana Hernandez Chief Complaint: Chief Complaint Patient presents with Laceration Left thumb HPI Azeb Hutchison is a 57 y.o. female presents to the ED today due to laceration left thumb. Patient cut the dorsum of her left thumb on a glass jar yesterday evening. She came in today because it is still painful when she moves it. States she cleaned it up very good last night placed a dressing on it. She put a splint on her thumb so that it was not opening. She states that when she would bend her thumb because would open up. Her last tetanus immunization was approximately 3 years ago. She states that she is ambidextrous. Review of Systems: Review of Systems No recent fever chills. No recent upper respiratory, gastrointestinal, or genitourinary complaints. Past Medical History: Past Medical History: Diagnosis Date Asthma CKD (chronic kidney disease) stage 3, GFR 30-59 ml/min Essential hypertension, benign Hyperlipidemia Past Surgical History: Past Surgical History: Procedure Laterality Date ARTHROPLASTY ANKLE TOTAL N/A 07/31/2022 HYSTERECTOMY REDUCTION REVISION BREAST RELEASE CARPAL TUNNEL N/A REMOVAL CATARACT (PEM) N/A Allergies: Allergies Allergen Reactions Albuterol Codeine Morphine Penicillins Duloxetine unknown Lisinopril Cough Medications: Patient's Medications New Prescriptions No medications on file Previous Medications CALCIFEDIOL ER (RAYALDEE) 30 MCG CAP CR Take 1 capsule by mouth every Friday, Friday and Friday. DAPAGLIFLOZIN (FARXIGA) 10 MG TABLET Take 1 tablet by mouth daily. DICLOFENAC SODIUM 1 % GEL GEL Apply 4 g topically 2 times daily. DIPHENHYDRAMINE 25 MG TABLET Take 1 tablet by mouth every 6 hours as needed for Itching. LEVALBUTEROL 1.25 MG/3ML NEBU SOLN Modified Medications No medications on file Discontinued Medications No medications on file Family History: Family History Problem Relation Age of Onset Kidney Disease Mother Diabetes Mother Other - Specify Mother fibromyalgia Hypertension Mother Kidney Disease Sister Diabetes Maternal Aunt Diabetes Maternal Grandmother Social History: Social History Socioeconomic History Marital status: Spouse name: Not on file Number of children: Not on file Years of education: Not on file Highest education level: Not on file Occupational History Not on file Tobacco Use Smoking status: Former Smokeless tobacco: Never Vaping Use Vaping Use: Never used Substance and Sexual Activity Alcohol use: Yes Comment: social Drug use: Never Sexual activity: Not Currently Partners: Male control/protection: Hysterectomy Other Topics Concern Service Not Asked Blood Transfusions Not Asked Caffeine Concern Not Asked Occupational Exposure Not Asked Hobby Hazards Not Asked Sleep Concern Not Asked Stress Concern Not Asked Weight Concern Not Asked Special Diet Not Asked Back Care Not Asked Exercise Not Asked Bike Helmet Not Asked Seat Belt Not Asked Domestic Violence No Social History Narrative Not on file Social Determinants of Health Financial Resource Strain: Not on file Food Insecurity: Not on file Transportation Needs: Not on file Physical Activity: Not on file Stress: Not on file Social Connections: Not on file Intimate Partner Violence: Not on file Housing Stability: Not on file Physical Exam: Physical Exam Pleasant 57-year-old female is awake alert. Speaking in full sentences has no respiratory distress. She has good range of motion left shoulder, elbow, wrist without difficulty. Observation reveals she has a 5-6 mm laceration on the dorsal aspect of the interphalangeal joint of left thumb. It does gape about a mm when she flexes the IP joint. There is no active bleeding. There is no surrounding erythema or warmth. No swelling. She has good flexion and extension of the IP joint when I isolate the MP joint. She has good flexion and extension of the MP joint when I isolate the IP joint. There is no subungual hematoma. No other signs of trauma. She has no tenderness over the bony structure of the thumb. There is no drainage from the wound. No fluctuance. No swelling. No evidence of cellulitis, lymphangitis, or abscess. She has no signs of trauma to the remainder of the hand. Vital Signs During ED Visit Patient Vitals for the past 24 hrs: BP Temp Pulse Resp SpO2 Weight 07/11/23 1145 -- -- -- -- -- 74.8 kg (165 lb) 07/11/23 1143 134/74 97.8 F (36.6 C) 70 18 97 % -- Orders/Results: Orders Placed This Encounter XR THUMB LEFT Bacitracin ointment 1 Application Results for orders placed or performed in visit on 07/08/23 RENAL FUNCTION PANEL Result Value Ref Range Glucose 91 70 - 100 MG/DL BUN 22 (H) 7 - 20 MG/DL CREATININE SERUM 1.61 (H) 0.70 - 1.20 MG/DL SODIUM 140 137 - 145 MMOL/L POTASSIUM 4.0 3.5 - 5.1 MMOL/L CHLORIDE 110 (H) 98 - 107 MMOL/L CARBON DIOXIDE (CO2) 22 22 - 30 MMOL/L Albumin 3.8 3.5 - 5.0 G/dl CALCIUM 9.1 8.4 - 10.2 MG/DL PHOSPHORUS 3.4 2.5 - 4.5 MG/DL ESTIMATED GFR, NON AMER 35 ml/min/1.73sq.m ESTIMATED GFR, 42 ml/min/1.73sq.m GFR COMMENT Average GFR for 50-59 years old = 93. MAGNESIUM Result Value Ref Range MAGNESIUM 2.2 1.6 - 2.3 MG/DL CBC, EDIF, PLATELET Result Value Ref Range WBC (WHITE BLOOD COUNT) 6.6 3.6 - 11.0 10*3/uL RBC 4.46 4.0 - 5.4 10*6/uL HEMOGLOBIN (HGB) 13.5 12.0 - 16.0 G/DL HEMATOCRIT (HCT) 41.0 36.0 - 48.0 % MEAN CELL VOLUME 91.8 80.0 - 100.0 FL Mean Cell HGB 30.2 26.0 - 35.0 PG MEAN CELL HGB CONCENTRATION 32.9 27.0 - 37.0 G/DL RBC DISTRIBUTION 14.5 11.5 - 14.5 % PLATELET COUNT 305 130 - 400 10*3/uL MEAN PLATELET VOLUME 7.6 7.4 - 11.0 FL DIFFERENTIAL TYPE AUTO DIFF % NEUTROPHILS 49.6 37.0 - 75.0 % LYMPHOCYTE 39.1 20.0 - 55.0 % MONOCYTE % 8.0 0.0 - 10.0 % EOSINOPHIL % 2.1 0.0 - 11.0 % BASOPHIL % 1.2 0.0 - 2.0 % Absolute Neutrophil Count 3.2 1.4 - 6.5 10*3/uL LYMPHOCYTES, ABSOLUTE 2.6 1.2 - 3.4 10*3/uL MONOCYTES, ABSOLUTE 0.5 0.0 - 0.7 10*3/uL ABSOLUTE EOSINOPHIL COUNT 0.1 0.0 - 0.7 10*3/uL ABSOLUTE BASOPHIL COUNT 0.1 0.0 - 0.2 10*3/uL URINE PROTEIN/CREA RATIO, RANDOM Result Value Ref Range PROTEIN MG/DL-URINE 33 (H) 0 - 12 MG/DL CREATININE, MG/DL, URINE 98.4 MG/DL PROTEIN/CREAT RATIO, URINE 0.3 URINALYSIS, MACRO Result Value Ref Range COLOR, URINE YELLOW YELLOW APPEARANCE, URINE CLEAR CLEAR Specific [place], Urine 1.020 1.010 - 1.025 PH URINE 6.5 5.0 - 7.0 Urine Protein 100 (A) NEGATIVE mg/dl GLUCOSE, URINE 500 (A) NEGATIVE mg/dl KETONES, URINE NEGATIVE NEGATIVE mg/dl BILIRUBIN, URINE NEGATIVE NEGATIVE BLOOD, URINE DIPSTICK TRACE-INTACT (A) NEGATIVE NITRITES, URINE NEGATIVE NEGATIVE UROBILINOGEN, URINE 0.2 0.2 - 1.0 E.U./dL LEUKOCYTE ESTERASE, URINE NEGATIVE NEGATIVE SODIUM, RANDOM URINE Result Value Ref Range SODIUM, URINE RANDOM 154 (H) 30 - 90 MMOL/L URINE MICROSCOPIC Result Value Ref Range WBC, URINE NEGATIVE NEGATIVE /HPF RBC, URINE NEGATIVE NEGATIVE /HPF Epithelial Cells UA NONE /HPF Mucus NEGATIVE NEGATIVE BACTERIA, URINE NEGATIVE NEGATIVE CRYSTALS, URINE NONE NONE CASTS, URINE NONE NONE /LPF COMMENT, URINE CULTURE CRITERIA NOT MET, NO CULTURE PERFORMED. Radiographic Imaging XR THUMB LEFT Final Result IMPRESSION: Negative left thumb. Procedures: Procedures Moderate Sedation Procedure: No ED Summary/MDM No evidence of radiopaque foreign bodies on the x-ray of the left thumb. At this time we did clean the area place bacitracin ointment and a Band-Aid. Reapply the patient's thumb splint and discharged her home. Wound care instructions. Gently clean the area soap and water once or twice a day. Allow it to completely dry then place bacitracin ointment and a clean Band-Aid. Wound reapply her splint. Do this for the next 7 days to allow the wound to heal. Follow up Dr. Levin next week. Return if any other questions or concerns, or worse in any way. She voiced understanding and agreement with this. No further questions at this time. She is discharged in good condition. Clinical Impression: 1. Laceration of left thumb without foreign body without damage to nail, initial encounter No follow-ups on file. New Prescriptions No medications on file Discontinued Medications No medications on file An After Visit Summary was printed and given to the patient with above information. . Zen Alexander MD 07/11/23 1333 Registration at bedside Patient states I cut my thumb last nite on a kary jar. It was still kind of bleeding this morning and its pretty painful. documented in this encounter [facility] 07-11-2023 Physician Emergen cy department Note Emergency Room Note [facility] EMERGENCY DEPARTMENT Service Date:.07/11/23 PCP: Rehana Hernandez Chief Complaint: Chief Complaint Patient presents with Laceration Left thumb HPI Azeb Hutchison is a 57 y.o. female presents to the ED today due to laceration left thumb. Patient cut the dorsum of her left thumb on a glass jar yesterday evening. She came in today because it is still painful when she moves it. States she cleaned it up very good last night placed a dressing on it. She put a splint on her thumb so that it was not opening. She states that when she would bend her thumb because would open up. Her last tetanus immunization was approximately 3 years ago. She states that she is ambidextrous. Review of Systems: Review of Systems No recent fever chills. No recent upper respiratory, gastrointestinal, or genitourinary complaints. Past Medical History: Past Medical History: Diagnosis Date Asthma CKD (chronic kidney disease) stage 3, GFR 30-59 ml/min Essential hypertension, benign Hyperlipidemia Past Surgical History: Past Surgical History: Procedure Laterality Date ARTHROPLASTY ANKLE TOTAL N/A 07/31/2022 HYSTERECTOMY REDUCTION REVISION BREAST RELEASE CARPAL TUNNEL N/A REMOVAL CATARACT (PEM) N/A Allergies: Allergies Allergen Reactions Albuterol Codeine Morphine Penicillins Duloxetine unknown Lisinopril Cough Medications: Patient's Medications New Prescriptions No medications on file Previous Medications CALCIFEDIOL ER (RAYALDEE) 30 MCG CAP CR Take 1 capsule by mouth every Friday, Friday and Friday. DAPAGLIFLOZIN (FARXIGA) 10 MG TABLET Take 1 tablet by mouth daily. DICLOFENAC SODIUM 1 % GEL GEL Apply 4 g topically 2 times daily. DIPHENHYDRAMINE 25 MG TABLET Take 1 tablet by mouth every 6 hours as needed for Itching. LEVALBUTEROL 1.25 MG/3ML BATSHEVA FRANKEL Modified Medications No medications on file Discontinued Medications No medications on file Family History: Family History Problem Relation Age of Onset Kidney Disease Mother Diabetes Mother Other - Specify Mother fibromyalgia Hypertension Mother Kidney Disease Sister Diabetes Maternal Aunt Diabetes Maternal Grandmother Social History: Social History Socioeconomic History Marital status: Spouse name: Not on file Number of children: Not on file Years of education: Not on file Highest education level: Not on file Occupational History Not on file Tobacco Use Smoking status: Former Smokeless tobacco: Never Vaping Use Vaping Use: Never used Substance and Sexual Activity Alcohol use: Yes Comment: social Drug use: Never Sexual activity: Not Currently Partners: Male control/protection: Hysterectomy Other Topics Concern Service Not Asked Blood Transfusions Not Asked Caffeine Concern Not Asked Occupational Exposure Not Asked Hobby Hazards Not Asked Sleep Concern Not Asked Stress Concern Not Asked Weight Concern Not Asked Special Diet Not Asked Back Care Not Asked Exercise Not Asked Bike Helmet Not Asked Seat Belt Not Asked Domestic Violence No Social History Narrative Not on file Social Determinants of Health Financial Resource Strain: Not on file Food Insecurity: Not on file Transportation Needs: Not on file Physical Activity: Not on file Stress: Not on file Social Connections: Not on file Intimate Partner Violence: Not on file Housing Stability: Not on file Physical Exam: Physical Exam Pleasant 57-year-old female is awake alert. Speaking in full sentences has no respiratory distress. She has good range of motion left shoulder, elbow, wrist without difficulty. Observation reveals she has a 5-6 mm laceration on the dorsal aspect of the interphalangeal joint of left thumb. It does gape about a mm when she flexes the IP joint. There is no active bleeding. There is no surrounding erythema or warmth. No swelling. She has good flexion and extension of the IP joint when I isolate the MP joint. She has good flexion and extension of the MP joint when I isolate the IP joint. There is no subungual hematoma. No other signs of trauma. She has no tenderness over the bony structure of the thumb. There is no drainage from the wound. No fluctuance. No swelling. No evidence of cellulitis, lymphangitis, or abscess. She has no signs of trauma to the remainder of the hand. Vital Signs During ED Visit Patient Vitals for the past 24 hrs: BP Temp Pulse Resp SpO2 Weight 07/11/23 1145 -- -- -- -- -- 74.8 kg (165 lb) 07/11/23 1143 134/74 97.8 F (36.6 C) 70 18 97 % -- Orders/Results: Orders Placed This Encounter XR THUMB LEFT Bacitracin ointment 1 Application Results for orders placed or performed in visit on 07/08/23 RENAL FUNCTION PANEL Result Value Ref Range Glucose 91 70 - 100 MG/DL BUN 22 (H) 7 - 20 MG/DL CREATININE SERUM 1.61 (H) 0.70 - 1.20 MG/DL SODIUM 140 137 - 145 MMOL/L POTASSIUM 4.0 3.5 - 5.1 MMOL/L CHLORIDE 110 (H) 98 - 107 MMOL/L CARBON DIOXIDE (CO2) 22 22 - 30 MMOL/L Albumin 3.8 3.5 - 5.0 G/dl CALCIUM 9.1 8.4 - 10.2 MG/DL PHOSPHORUS 3.4 2.5 - 4.5 MG/DL ESTIMATED GFR, NON AMER 35 ml/min/1.73sq.m ESTIMATED GFR, 42 ml/min/1.73sq.m GFR COMMENT Average GFR for 50-59 years old = 93. MAGNESIUM Result Value Ref Range MAGNESIUM 2.2 1.6 - 2.3 MG/DL CBC, EDIF, PLATELET Result Value Ref Range WBC (WHITE BLOOD COUNT) 6.6 3.6 - 11.0 10*3/uL RBC 4.46 4.0 - 5.4 10*6/uL HEMOGLOBIN (HGB) 13.5 12.0 - 16.0 G/DL HEMATOCRIT (HCT) 41.0 36.0 - 48.0 % MEAN CELL VOLUME 91.8 80.0 - 100.0 FL Mean Cell HGB 30.2 26.0 - 35.0 PG MEAN CELL HGB CONCENTRATION 32.9 27.0 - 37.0 G/DL RBC DISTRIBUTION 14.5 11.5 - 14.5 % PLATELET COUNT 305 130 - 400 10*3/uL MEAN PLATELET VOLUME 7.6 7.4 - 11.0 FL DIFFERENTIAL TYPE AUTO DIFF % NEUTROPHILS 49.6 37.0 - 75.0 % LYMPHOCYTE 39.1 20.0 - 55.0 % MONOCYTE % 8.0 0.0 - 10.0 % EOSINOPHIL % 2.1 0.0 - 11.0 % BASOPHIL % 1.2 0.0 - 2.0 % Absolute Neutrophil Count 3.2 1.4 - 6.5 10*3/uL LYMPHOCYTES, ABSOLUTE 2.6 1.2 - 3.4 10*3/uL MONOCYTES, ABSOLUTE 0.5 0.0 - 0.7 10*3/uL ABSOLUTE EOSINOPHIL COUNT 0.1 0.0 - 0.7 10*3/uL ABSOLUTE BASOPHIL COUNT 0.1 0.0 - 0.2 10*3/uL URINE PROTEIN/CREA RATIO, RANDOM Result Value Ref Range PROTEIN MG/DL-URINE 33 (H) 0 - 12 MG/DL CREATININE, MG/DL, URINE 98.4 MG/DL PROTEIN/CREAT RATIO, URINE 0.3 URINALYSIS, MACRO Result Value Ref Range COLOR, URINE YELLOW YELLOW APPEARANCE, URINE CLEAR CLEAR Specific [place], Urine 1.020 1.010 - 1.025 PH URINE 6.5 5.0 - 7.0 Urine Protein 100 (A) NEGATIVE mg/dl GLUCOSE, URINE 500 (A) NEGATIVE mg/dl KETONES, URINE NEGATIVE NEGATIVE mg/dl BILIRUBIN, URINE NEGATIVE NEGATIVE BLOOD, URINE DIPSTICK TRACE-INTACT (A) NEGATIVE NITRITES, URINE NEGATIVE NEGATIVE UROBILINOGEN, URINE 0.2 0.2 - 1.0 E.U./dL LEUKOCYTE ESTERASE, URINE NEGATIVE NEGATIVE SODIUM, RANDOM URINE Result Value Ref Range SODIUM, URINE RANDOM 154 (H) 30 - 90 MMOL/L URINE MICROSCOPIC Result Value Ref Range WBC, URINE NEGATIVE NEGATIVE /HPF RBC, URINE NEGATIVE NEGATIVE /HPF Epithelial Cells UA NONE /HPF Mucus NEGATIVE NEGATIVE BACTERIA, URINE NEGATIVE NEGATIVE CRYSTALS, URINE NONE NONE CASTS, URINE NONE NONE /LPF COMMENT, URINE CULTURE CRITERIA NOT MET, NO CULTURE PERFORMED. Radiographic Imaging XR THUMB LEFT Final Result IMPRESSION: Negative left thumb. Procedures: Procedures Moderate Sedation Procedure: No ED Summary/MDM No evidence of radiopaque foreign bodies on the x-ray of the left thumb. At this time we did clean the area place bacitracin ointment and a Band-Aid. Reapply the patient's thumb splint and discharged her home. Wound care instructions. Gently clean the area soap and water once or twice a day. Allow it to completely dry then place bacitracin ointment and a clean Band-Aid. Wound reapply her splint. Do this for the next 7 days to allow the wound to heal. Follow up Dr. Levin next week. Return if any other questions or concerns, or worse in any way. She voiced understanding and agreement with this. No further questions at this time. She is discharged in good condition. Clinical Impression: 1. Laceration of left thumb without foreign body without damage to nail, initial encounter No follow-ups on file. New Prescriptions No medications on file Discontinued Medications No medications on file An After Visit Summary was printed and given to the patient with above information. . Zen Alexander MD 07/11/23 1333 [facility] 07-11-2023 Hospital Discharg e instructions Zen Alexander MD - 07/11/2023 1:29 PM EDT Gently clean the area with soap and water once or twice a day. Allow it to completely dry and then place a small amount of bacitracin ointment on the laceration. Then place a Band-Aid and your thumb splint. Do this for the next 7 days to allow to heal. Return to ER if you have any other questions or concerns, or feel worse in any way. The following attachments cannot be sent through Care Everywhere.Lacerations: Open (Mauritian)documented in this encounter [facility] 07-11-2023 Emergency departm ent Note Registration at bedside [facility] 07-11-2023 Emergency departm ent Note Patient states I cut my thumb last nite on a kary jar. It was still kind of bleeding this morning and its pretty painful. [facility] 07-09-2023 History of Presen t illness Narrative DAILY PROGRESS NOTE Admit Date: (Not on file) Date of Evaluation: :33 PM [facility] @[facility]@ IMPRESSION AND PLAN: 56 y/o female with history of CKD IIIB, lipidemia and HTN is here for CKD care. She is very sensitive to medications. 1) CKD IIIB due to HTN Cr 1.58 -> 1.38 -> 1.36 -> 1.69 -> 1.49 -> 1.61 UA disclosed proteinuria. 24 hour urine pr 578 Urine Na 128 -> 154 Continue with farxiga daily Will get UA. Will get renal panel. 2) HTN SBP 130s Continue with lisinopril 5mg PO Qday. 3) Protienuria Spot urine pr/cr 0.3 -> 0.5 -> 0.4 -> 0.5 -> 0.3 Will consider kidney biopsy. 4) Hydronephrosis Renal US disclosed mild to moderate hydronephrosis of the left kidney. No no evidence of nephrolithiasis. CT urogram disclosed no hydronephrosis. Resolved. 5) Hyperparathyroid Vitamin D 28.3 PTH 101.3 Continue with javy once a week. She cannot tolerate it daily SUBJECTIVE: Patient seen and examined. Chart, medications, labs reviewed. Appointment on 07/08/2023 Component Date Value Ref Range Status Glucose 07/08/2023 91 70 - 100 MG/DL Final Comment: NORMAL <100 mg/dL PREDIABETES 101-126 mg/dL DIABETES 126 mg/dL or higher BUN 07/08/2023 22 (H) 7 - 20 MG/DL Final CREATININE SERUM 07/08/2023 1.61 (H) 0.70 - 1.20 MG/DL Final SODIUM 07/08/2023 140 137 - 145 MMOL/L Final POTASSIUM 07/08/2023 4.0 3.5 - 5.1 MMOL/L Final CHLORIDE 07/08/2023 110 (H) 98 - 107 MMOL/L Final Please note: Triglyceride levels of 600mg/dL or higher may positively bias chloride results by approximately 2.1 mmol CARBON DIOXIDE (CO2) 07/08/2023 22 22 - 30 MMOL/L Final Albumin 07/08/2023 3.8 3.5 - 5.0 G/dl Final CALCIUM 07/08/2023 9.1 8.4 - 10.2 MG/DL Final PHOSPHORUS 07/08/2023 3.4 2.5 - 4.5 MG/DL Final ESTIMATED GFR, NON AMER 07/08/2023 35 ml/min/1.73sq.m Final ESTIMATED GFR, 07/08/2023 42 ml/min/1.73sq.m Final GFR COMMENT 07/08/2023 Average GFR for 50-59 years old = 93. Final Comment: Chronic Kidney disease, GFR = <60. Kidney failure, GFR = <15. The GFR estimate is not adjusted for extreme body surface area or acute process, nor has it been validated for women or ethnic groups other than and . MAGNESIUM 07/08/2023 2.2 1.6 - 2.3 MG/DL Final WBC (WHITE BLOOD COUNT) 07/08/2023 6.6 3.6 - 11.0 10*3/uL Final RBC 07/08/2023 4.46 4.0 - 5.4 10*6/uL Final HEMOGLOBIN (HGB) 07/08/2023 13.5 12.0 - 16.0 G/DL Final HEMATOCRIT (HCT) 07/08/2023 41.0 36.0 - 48.0 % Final MEAN CELL VOLUME 07/08/2023 91.8 80.0 - 100.0 FL Final Mean Cell HGB 07/08/2023 30.2 26.0 - 35.0 PG Final MEAN CELL HGB CONCENTRATION 07/08/2023 32.9 27.0 - 37.0 G/DL Final RBC DISTRIBUTION 07/08/2023 14.5 11.5 - 14.5 % Final PLATELET COUNT 07/08/2023 305 130 - 400 10*3/uL Final MEAN PLATELET VOLUME 07/08/2023 7.6 7.4 - 11.0 FL Final DIFFERENTIAL TYPE 07/08/2023 AUTO DIFF % Final NEUTROPHILS 07/08/2023 49.6 37.0 - 75.0 % Final LYMPHOCYTE 07/08/2023 39.1 20.0 - 55.0 % Final MONOCYTE % 07/08/2023 8.0 0.0 - 10.0 % Final EOSINOPHIL % 07/08/2023 2.1 0.0 - 11.0 % Final BASOPHIL % 07/08/2023 1.2 0.0 - 2.0 % Final Absolute Neutrophil Count 07/08/2023 3.2 1.4 - 6.5 10*3/uL Final LYMPHOCYTES, ABSOLUTE 07/08/2023 2.6 1.2 - 3.4 10*3/uL Final MONOCYTES, ABSOLUTE 07/08/2023 0.5 0.0 - 0.7 10*3/uL Final ABSOLUTE EOSINOPHIL COUNT 07/08/2023 0.1 0.0 - 0.7 10*3/uL Final ABSOLUTE BASOPHIL COUNT 07/08/2023 0.1 0.0 - 0.2 10*3/uL Final PROTEIN MG/DL-URINE 07/08/2023 33 (H) 0 - 12 MG/DL Final CREATININE, MG/DL, URINE 07/08/2023 98.4 MG/DL Final NO NORMAL VALUES ESTABLISHED FOR RANDOM SPECIMENS PROTEIN/CREAT RATIO, URINE 07/08/2023 0.3 Final Comment: REFERENCE RANGES <0.2 NORMAL 0.2-3.5 NON-NEPHROTIC >3.5 NEPHROTIC COLOR, URINE 07/08/2023 YELLOW YELLOW Final APPEARANCE, URINE 07/08/2023 CLEAR CLEAR Final Specific [place], Urine 07/08/2023 1.020 1.010 - 1.025 Final PH URINE 07/08/2023 6.5 5.0 - 7.0 Final Urine Protein 07/08/2023 100 (A) NEGATIVE mg/dl Final GLUCOSE, URINE 07/08/2023 500 (A) NEGATIVE mg/dl Final KETONES, URINE 07/08/2023 NEGATIVE NEGATIVE mg/dl Final BILIRUBIN, URINE 07/08/2023 NEGATIVE NEGATIVE Final BLOOD, URINE DIPSTICK 07/08/2023 TRACE-INTACT (A) NEGATIVE Final NITRITES, URINE 07/08/2023 NEGATIVE NEGATIVE Final UROBILINOGEN, URINE 07/08/2023 0.2 0.2 - 1.0 E.U./dL Final LEUKOCYTE ESTERASE, URINE 07/08/2023 NEGATIVE NEGATIVE Final SODIUM, URINE RANDOM 07/08/2023 154 (H) 30 - 90 MMOL/L Final WBC, URINE 07/08/2023 NEGATIVE NEGATIVE /HPF Final RBC, URINE 07/08/2023 NEGATIVE NEGATIVE /HPF Final Epithelial Cells UA 07/08/2023 NONE /HPF Final Mucus 07/08/2023 NEGATIVE NEGATIVE Final BACTERIA, URINE 07/08/2023 NEGATIVE NEGATIVE Final CRYSTALS, URINE 07/08/2023 NONE NONE Final CASTS, URINE 07/08/2023 NONE NONE /LPF Final COMMENT, URINE 07/08/2023 CULTURE CRITERIA NOT MET, NO CULTURE PERFORMED. Final LABS Labs-ABGs @ABGROUNDS@ Labs-CBC @CBCBRIEFROUNDS@ Labs-Chem 7([facility]) Bun/Creat/Cl/CO2/Glucose: 22/1.61/110/22/91 (07/08 1641) @LYAISHWARYAROUNDS@ Labs-Coags WBC (WHITE BLOOD COUNT) Date Value Ref Range Status 07/08/2023 6.6 3.6 - 11.0 10*3/uL Final 04/14/2023 7.2 3.6 - 11.0 10*3/uL Final 02/10/2023 5.9 3.6 - 11.0 10*3/uL Final HEMOGLOBIN (HGB) Date Value Ref Range Status 07/08/2023 13.5 12.0 - 16.0 G/DL Final 04/14/2023 14.5 12.0 - 16.0 G/DL Final 02/10/2023 13.7 12.0 - 16.0 G/DL Final HEMATOCRIT (HCT) Date Value Ref Range Status 07/08/2023 41.0 36.0 - 48.0 % Final 04/14/2023 43.2 36.0 - 48.0 % Final 02/10/2023 41.2 36.0 - 48.0 % Final PLATELET COUNT Date Value Ref Range Status 07/08/2023 305 130 - 400 10*3/uL Final 04/14/2023 343 130 - 400 10*3/uL Final 02/10/2023 289 130 - 400 10*3/uL Final SODIUM Date Value Ref Range Status 07/08/2023 140 137 - 145 MMOL/L Final 04/14/2023 138 137 - 145 MMOL/L Final 02/10/2023 143 136 - 145 MMOL/L Final CHLORIDE Date Value Ref Range Status 07/08/2023 110 (H) 98 - 107 MMOL/L Final Comment: Please note: Triglyceride levels of 600mg/dL or higher may positively bias chloride results by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 NEGATIVE /HPF Final Epithelial Cells UA 04/14/2023 NONE /HPF Final Mucus 04/14/2023 NEGATIVE NEGATIVE Final BACTERIA, URINE 04/14/2023 NEGATIVE NEGATIVE Final CRYSTALS, URINE 04/14/2023 NONE NONE Final CASTS, URINE 04/14/2023 NONE NONE /LPF Final COMMENT, URINE 04/14/2023 CULTURE CRITERIA NOT MET, NO CULTURE PERFORMED. Final LABS Labs-ABGs @ABGROUNDS@ Labs-CBC @CBCBRIEFROUNDS@ Labs-Chem 7(PMC) @[facility]@ Labs-Coa WBC (WHITE BLOOD COUNT) Date Value Ref Range Status 04/14/2023 7.2 3.6 - 11.0 10*3/uL Final 02/10/2023 5.9 3.6 - 11.0 10*3/uL Final 01/16/2023 6.6 3.6 - 11.0 10*3/uL Final HEMOGLOBIN (HGB) Date Value Ref Range Status 04/14/2023 14.5 12.0 - 16.0 G/DL Final 02/10/2023 13.7 12.0 - 16.0 G/DL Final 01/16/2023 13.4 12.0 - 16.0 G/DL Final HEMATOCRIT (HCT) Date Value Ref Range Status 04/14/2023 43.2 36.0 - 48.0 % Final 02/10/2023 41.2 36.0 - 48.0 % Final 01/16/2023 40.0 36.0 - 48.0 % Final PLATELET COUNT Date Value Ref Range Status 04/14/2023 343 130 - 400 10*3/uL Final 02/10/2023 289 130 - 400 10*3/uL Final 01/16/2023 313 130 - 400 10*3/uL Final SODIUM Date Value Ref Range Status 04/14/2023 138 137 - 145 MMOL/L Final 02/10/2023 143 136 - 145 MMOL/L Final 01/16/2023 137 136 - 145 MMOL/L Final CHLORIDE Date Value Ref Range Status 04/14/2023 106 98 - 107 MMOL/L Final Comment: Please note: Triglyceride levels of 600mg/dL or higher may positively bias chloride results by approximately 2.1 mmol 02/10/2023 107 98 - 107 MMOL/L Final 01/16/2023 108 (H) 98 - 107 MMOL/L Final BUN Date Value Ref Range Status 04/14/2023 19 7 - 20 MG/DL Final 02/10/2023 17 7 - 20 MG/DL Final 01/16/2023 16 7 - 20 MG/DL Final POTASSIUM Date Value Ref Range Status 04/14/2023 4.5 3.5 - 5.1 MMOL/L Final 02/10/2023 3.7 3.5 - 5.1 MMOL/L Final 01/16/2023 4.2 3.5 - 5.1 MMOL/L Final CREATININE SERUM Date Value Ref Range Status 04/14/2023 1.49 (H) 0.70 - 1.20 MG/DL Final 02/10/2023 1.69 (H) 0.52 - 1.04 MG/DL Final 01/16/2023 1.42 (H) 0.52 - 1.04 MG/DL Final Glucose Date Value Ref Range Status 04/14/2023 75 70 - 100 MG/DL Final Comment: NORMAL <100 mg/dL PREDIABETES 101-126 mg/dL DIABETES 126 mg/dL or higher 02/10/2023 100 70 - 100 MG/DL Final Comment: NORMAL <100 mg/dL PREDIABETES 101-126 mg/dL DIABETES 126 mg/dL or higher 01/16/2023 94 70 - 100 MG/DL Final Comment: NORMAL <100 mg/dL PREDIABETES 101-126 mg/dL DIABETES 126 mg/dL or higher PROTEIN, TOTAL Date Value Ref Range Status 01/16/2023 7.0 6.3 - 8.2 GM/DL Final 09/09/2022 6.7 6.3 - 8.2 GM/DL Final Albumin Date Value Ref Range Status 04/14/2023 3.9 3.5 - 5.0 G/dl Final 02/10/2023 3.8 3.5 - 5.0 G/dl Final 01/16/2023 3.8 3.5 - 5.0 G/DL Final AST Date Value Ref Range Status 01/16/2023 20 15 - 41 IU/L Final 09/09/2022 21 15 - 41 IU/L Final ALT Date Value Ref Range Status 01/16/2023 14 14 - 54 IU/L Final 09/09/2022 19 14 - 54 IU/L Final BILIRUBIN, TOTAL Date Value Ref Range Status 01/16/2023 0.2 0.2 - 1.2 MG/DL Final CALCIUM Date Value Ref Range Status 04/14/2023 8.9 8.4 - 10.2 MG/DL Final 02/10/2023 9.6 8.4 - 10.2 MG/DL Final 11/20/2022 9.3 8.4 - 10.2 MG/DL Final PHOSPHORUS Date Value Ref Range Status 04/14/2023 4.1 2.5 - 4.5 MG/DL Final 02/10/2023 3.2 2.5 - 4.5 MG/DL Final 11/20/2022 3.0 2.5 - 4.5 MG/DL Final MAGNESIUM Date Value Ref Range Status 04/14/2023 2.1 1.6 - 2.3 MG/DL Final 02/10/2023 2.2 1.6 - 2.3 MG/DL Final 11/20/2022 1.9 1.6 - 2.3 MG/DL Final Lab Results Component Value Date CREATURINE 109.6 04/14/2023 CREATSERUM 1.49 (H) 04/14/2023 BUN 19 04/14/2023 SODIUM 138 04/14/2023 POTASSIUM 4.5 04/14/2023 CHLORIDE 106 04/14/2023 CO2 23 04/14/2023 ROS: Constitution: No fever, no chill HEENT: No headache, no sinus issues CV: No chest pain, no palpitation Lung: No cough, No SOB Abd: No diarrhea, no constipation Neuro: No seizure, no loss of consciousness Heme: No bleeding, no bruise PHYSICAL EXAM: Wt Readings from Last 3 Encounters: 04/17/23 74.8 kg (165 lb) 02/12/23 75.3 kg (166 lb) 02/07/23 76.1 kg (167 lb 12.8 oz) Temp Readings from Last 3 Encounters: 02/07/23 98 F (36.7 C) (Temporal) 01/16/23 98.1 F (36.7 C) (Oral) 09/09/22 98.2 F (36.8 C) (Oral) BP Readings from Last 3 Encounters: 04/17/23 138/88 02/12/23 138/90 01/16/23 (!) 155/96 Pulse Readings from Last 3 Encounters: 04/17/23 66 01/16/23 66 12/04/22 86 Gen: NAD, lying in bed, conversant HEENT: Atraumatic, PERRLA, moist membrane CV: RRR, nl S1 and S2, no m/g/r Lung: CTAB, no wheezing, no crackle Abd: +BS, nontender, no distended Ext: No rash, no clubbing, no cyanosis. No edema. Neuro: CNII-XII grossly intact, 5/5 strength, normal tone Skin: Warm and dry documented in this encounter [facility] documented in this encounter [facility]05-10-[facility] History of Present illness Narrative* Rudy Iniguez MD - 02/12/2023 3:30 PM EDT DAILY PROGRESS NOTE Admit Date: (Not on file) Date of Evaluation: :46 PM [facility] @HLOS@ IMPRESSION AND PLAN: 56 y/o female with history of CKD IIIB, lipidemia and HTN is here for CKD care. She is very sensitive to medications. 1) CKD IIIB Cr 1.58 -> 1.38 -> 1.36 -> 1.69 UA disclosed proteinuria. 24 hour urine pr 578 Will get UA. Will get renal panel. Will start xiga Friday and . She cannot tolerate it daily 2) HTN SBP 120s Continue with lisinopril 5mg PO Qday. 3) Protienuria Spot urine pr/cr 0.3 -> 0.5 -> 0.4 Will consider kidney biopsy. 4) Hydronephrosis Renal US disclosed mild to moderate hydronephrosis of the left kidney. No no evidence of nephrolithiasis. CT urogram disclosed no hydronephrosis. Resolved. 5) Hyperparathyroid Vitamin D 28.3 PTH 101.3 Continue with rayaldee MWF She cannot tolerate it daily SUBJECTIVE: Patient seen and examined. Chart, medications, labs reviewed. Appointment on 02/10/2023 Component Date Value Ref Range Status Glucose 02/10/2023 100 70 - 100 MG/DL Final Comment: NORMAL <100 mg/dL PREDIABETES 101-126 mg/dL DIABETES 126 mg/dL or higher BUN 02/10/2023 17 7 - 20 MG/DL Final CREATININE SERUM 02/10/2023 1.69 (H) 0.52 - 1.04 MG/DL Final SODIUM 02/10/2023 143 136 - 145 MMOL/L Final POTASSIUM 02/10/2023 3.7 3.5 - 5.1 MMOL/L Final CHLORIDE 02/10/2023 107 98 - 107 MMOL/L Final CARBON DIOXIDE (CO2) 02/10/2023 26 22 - 30 MMOL/L Final Albumin 02/10/2023 3.8 3.5 - 5.0 G/dl Final CALCIUM 02/10/2023 9.6 8.4 - 10.2 MG/DL Final PHOSPHORUS 02/10/2023 3.2 2.5 - 4.5 MG/DL Final ESTIMATED GFR, NON AMER 02/10/2023 33 ml/min/1.73sq.m Final ESTIMATED GFR, 02/10/2023 40 ml/min/1.73sq.m Final GFR COMMENT 02/10/2023 Average GFR for 50-59 years old = 93. Final Comment: Chronic Kidney disease, GFR = <60. Kidney failure, GFR = <15. The GFR estimate is not adjusted for extreme body surface area or acute process, nor has it been validated for women or ethnic groups other than and . MAGNESIUM 02/10/2023 2.2 1.6 - 2.3 MG/DL Final WBC (WHITE BLOOD COUNT) 02/10/2023 5.9 3.6 - 11.0 10*3/uL Final RBC 02/10/2023 4.48 4.0 - 5.4 10*6/uL Final HEMOGLOBIN (HGB) 02/10/2023 13.7 12.0 - 16.0 G/DL Final HEMATOCRIT (HCT) 02/10/2023 41.2 36.0 - 48.0 % Final MEAN CELL VOLUME 02/10/2023 92.0 80.0 - 100.0 FL Final Mean Cell HGB 02/10/2023 30.6 26.0 - 35.0 PG Final MEAN CELL HGB CONCENTRATION 02/10/2023 33.3 27.0 - 37.0 G/DL Final RBC DISTRIBUTION 02/10/2023 14.3 11.5 - 14.5 % Final PLATELET COUNT 02/10/2023 289 130 - 400 10*3/uL Final MEAN PLATELET VOLUME 02/10/2023 8.2 7.4 - 11.0 FL Final DIFFERENTIAL TYPE 02/10/2023 AUTO DIFF % Final NEUTROPHILS 02/10/2023 55.4 37.0 - 75.0 % Final LYMPHOCYTE 02/10/2023 34.3 20.0 - 55.0 % Final MONOCYTE % 02/10/2023 7.2 0.0 - 10.0 % Final EOSINOPHIL % 02/10/2023 1.7 0.0 - 11.0 % Final BASOPHIL % 02/10/2023 1.4 0.0 - 2.0 % Final Absolute Neutrophil Count 02/10/2023 3.3 1.4 - 6.5 10*3/uL Final LYMPHOCYTES, ABSOLUTE 02/10/2023 2.0 1.2 - 3.4 10*3/uL Final MONOCYTES, ABSOLUTE 02/10/2023 0.4 0.0 - 0.7 10*3/uL Final ABSOLUTE EOSINOPHIL COUNT 02/10/2023 0.1 0.0 - 0.7 10*3/uL Final ABSOLUTE BASOPHIL COUNT 02/10/2023 0.1 0.0 - 0.2 10*3/uL Final PROTEIN MG/DL-URINE 02/10/2023 76 (H) <10 MG/DL Final CREATININE, MG/DL, URINE 02/10/2023 197.2 MG/DL Final NO NORMAL VALUES ESTABLISHED FOR RANDOM SPECIMENS PROTEIN/CREAT RATIO, URINE 02/10/2023 0.4 Final Comment: REFERENCE RANGES <0.2 NORMAL 0.2-3.5 NON-NEPHROTIC >3.5 NEPHROTIC COLOR, URINE 02/10/2023 YELLOW YELLOW Final APPEARANCE, URINE 02/10/2023 CLEAR CLEAR Final Specific [place], Urine 02/10/2023 1.025 1.010 - 1.025 Final PH URINE 02/10/2023 6.5 5.0 - 7.0 Final PROTEIN, URINE 02/10/2023 100 (A) NEGATIVE mg/dl Final GLUCOSE, URINE 02/10/2023 NEGATIVE NEGATIVE mg/dl Final KETONES, URINE 02/10/2023 NEGATIVE NEGATIVE mg/dl Final BILIRUBIN, URINE 02/10/2023 NEGATIVE NEGATIVE Final BLOOD, URINE DIPSTICK 02/10/2023 TRACE-LYSED (A) NEGATIVE Final NITRITES, URINE 02/10/2023 NEGATIVE NEGATIVE Final UROBILINOGEN, URINE 02/10/2023 1.0 0.2 - 1.0 E.U./dL Final LEUKOCYTE ESTERASE, URINE 02/10/2023 TRACE (A) NEGATIVE Final SODIUM, URINE RANDOM 02/10/2023 184 MMOL/L Final WBC, URINE 02/10/2023 NEGATIVE NEGATIVE /HPF Final RBC, URINE 02/10/2023 NEGATIVE NEGATIVE /HPF Final Epithelial Cells UA 02/10/2023 1 TO 5 /HPF Final Mucus 02/10/2023 NEGATIVE NEGATIVE Final BACTERIA, URINE 02/10/2023 NEGATIVE NEGATIVE Final CRYSTALS, URINE 02/10/2023 NONE NONE Final CASTS, URINE 02/10/2023 NONE NONE /LPF Final COMMENT, URINE 02/10/2023 CULTURE CRITERIA NOT MET, NO CULTURE PERFORMED. Final LABS Labs-ABGs @ABGROUNDS@ Labs-CBC @CBCBRIEFROUNDS@ Labs-Chem 7(PMC) [facility]@ Labs-Coa WBC (WHITE BLOOD COUNT) Date Value Ref Range Status 02/10/2023 5.9 3.6 - 11.0 10*3/uL Final 01/16/2023 6.6 3.6 - 11.0 10*3/uL Final 11/20/2022 5.8 3.6 - 11.0 10*3/uL Final HEMOGLOBIN (HGB) Date Value Ref Range Status 02/10/2023 13.7 12.0 - 16.0 G/DL Final 01/16/2023 13.4 12.0 - 16.0 G/DL Final 11/20/2022 13.2 12.0 - 16.0 G/DL Final HEMATOCRIT (HCT) Date Value Ref Range Status 02/10/2023 41.2 36.0 - 48.0 % Final 01/16/2023 40.0 36.0 - 48.0 % Final 11/20/2022 40.2 36.0 - 48.0 % Final PLATELET COUNT Date Value Ref Range Status 02/10/2023 289 130 - 400 10*3/uL Final 01/16/2023 313 130 - 400 10*3/uL Final 11/20/2022 282 130.0 - 400.0 10*3/uL Final SODIUM Date Value Ref Range Status 02/10/2023 143 136 - 145 MMOL/L Final 01/16/2023 137 136 - 145 MMOL/L Final 11/20/2022 136 136 - 145 MMOL/L Final CHLORIDE Date Value Ref Range Status 02/10/2023 107 98 - 107 MMOL/L Final 01/16/2023 108 (H) 98 - 107 MMOL/L Final 11/20/2022 100 98 - 107 MMOL/L Final BUN Date Value Ref Range Status 02/10/2023 17 7 - 20 MG/DL Final 01/16/2023 16 7 - 20 MG/DL Final 11/20/2022 23 (H) 7 - 20 MG/DL Final POTASSIUM Date Value Ref Range Status 02/10/2023 3.7 3.5 - 5.1 MMOL/L Final 01/16/2023 4.2 3.5 - 5.1 MMOL/L Final 11/20/2022 3.9 3.5 - 5.1 MMOL/L Final CREATININE SERUM Date Value Ref Range Status 02/10/2023 1.69 (H) 0.52 - 1.04 MG/DL Final 01/16/2023 1.42 (H) 0.52 - 1.04 MG/DL Final 11/20/2022 1.36 (H) 0.52 - 1.04 MG/DL Final POCT GLUCOSE, URINE Date Value Ref Range Status 11/29/2022 neg mg/dL Final Glucose Date Value Ref Range Status 02/10/2023 100 70 - 100 MG/DL Final Comment: NORMAL <100 mg/dL PREDIABETES 101-126 mg/dL DIABETES 126 mg/dL or higher 01/16/2023 94 70 - 100 MG/DL Final Comment: NORMAL <100 mg/dL PREDIABETES 101-126 mg/dL DIABETES 126 mg/dL or higher PROTEIN, TOTAL Date Value Ref Range Status 01/16/2023 7.0 6.3 - 8.2 GM/DL Final 09/09/2022 6.7 6.3 - 8.2 GM/DL Final Albumin Date Value Ref Range Status 02/10/2023 3.8 3.5 - 5.0 G/dl Final 01/16/2023 3.8 3.5 - 5.0 G/DL Final 11/20/2022 3.6 3.5 - 5.0 G/dl Final AST Date Value Ref Range Status 01/16/2023 20 15 - 41 IU/L Final 09/09/2022 21 15 - 41 IU/L Final ALT Date Value Ref Range Status 01/16/2023 14 14 - 54 IU/L Final 09/09/2022 19 14 - 54 IU/L Final BILIRUBIN, TOTAL Date Value Ref Range Status 01/16/2023 0.2 0.2 - 1.2 MG/DL Final CALCIUM Date Value Ref Range Status 02/10/2023 9.6 8.4 - 10.2 MG/DL Final 11/20/2022 9.3 8.4 - 10.2 MG/DL Final 11/04/2022 9.3 8.4 - 10.2 MG/DL Final PHOSPHORUS Date Value Ref Range Status 02/10/2023 3.2 2.5 - 4.5 MG/DL Final 11/20/2022 3.0 2.5 - 4.5 MG/DL Final 11/04/2022 3.2 2.5 - 4.5 MG/DL Final MAGNESIUM Date Value Ref Range Status 02/10/2023 2.2 1.6 - 2.3 MG/DL Final 11/20/2022 1.9 1.6 - 2.3 MG/DL Final 11/04/2022 2.3 1.6 - 2.3 MG/DL Final Lab Results Component Value Date CREATURINE 197.2 02/10/2023 CREATSERUM 1.69 (H) 02/10/2023 BUN 17 02/10/2023 SODIUM 143 02/10/2023 POTASSIUM 3.7 02/10/2023 CHLORIDE 107 02/10/2023 CO2 26 02/10/2023 ROS: Constitution: No fever, no chill HEENT: No headache, no sinus issues CV: No chest pain, no palpitation Lung: No cough, No SOB Abd: No diarrhea, no constipation Neuro: No seizure, no loss of consciousness Heme: No bleeding, no bruise PHYSICAL EXAM: Wt Readings from Last 3 Encounters: 02/12/23 75.3 kg (166 lb) 02/07/23 76.1 kg (167 lb 12.8 oz) 12/04/22 75.3 kg (166 lb) Temp Readings from Last 3 Encounters: 02/07/23 98 F (36.7 C) (Temporal) 01/16/23 98.1 F (36.7 C) (Oral) 09/09/22 98.2 F (36.8 C) (Oral) BP Readings from Last 3 Encounters: 02/12/23 138/90 01/16/23 (!) 155/96 12/04/22 138/80 Pulse Readings from Last 3 Encounters: 01/16/23 66 12/04/22 86 11/06/22 70 Gen: NAD, lying in bed, conversant HEENT: Atraumatic, PERRLA, moist membrane CV: RRR, nl S1 and S2, no m/g/r Lung: CTAB, no wheezing, no crackle Abd: +BS, nontender, no distended Ext: No rash, no clubbing, no cyanosis. No edema. Neuro: CNII-XII grossly intact, 5/5 strength, normal tone Skin: Warm and dry documented in this [facility]05-05-2023 History of Present illness Narrative* Colleen Grahamis - 02/07/2023 2:00 PM EDT Chief Complaint Patient presents with Left Knee - Pain Pain Radiation To: none Pain Duration: 01/13/2023 Pain Frequency: constant Pain Quality: aching, soreness Factors That Aggravate Pain: activity Factors That Relieve Pain: rest Works for the [employer] Here for initial consultation for left knee pain. Painis located posteriorly and radiates down the lower extremity. Recently seen in the ED and ultrasound of the left lower extremity from 01/16/23 was negative for DVT. History of CKD. Pertinent medical records and imaging reviewed. IMPRESSION/PLAN: Multiple xray views of the joint were ordered and interpreted by me. Xrays demonstrate mild narrowing. 1. Mild left knee DJD. Continue current conservative treatment. Medication management: We will avoid oral NSAIDs due to history of CKD. Topical Diclofenac prescribed. Therapeutic exercises: Physical therapy prescribed. Recommended follow up with PCP regarding lower extremity cramping. Follow-up: 6-8 weeks for re-evaluation. KNEE EXAM LEFT RIGHT Inspection No effusion. No deformity. No effusion. No deformity. Paltation No tenderness to palpation. No tenderness to palpation. ROM 0-130 degrees 0-130 degrees Strength 5/5 in flexion & extension 5/5 in flexion and extension Gait: Non-antalgic Yennifer: No laxity and firm end point. Posterior drawer: No laxity and firm end point. No laxity with varus/valgus maneuver. Thomas: Negative. Visit Vitals Temp 98 F (36.7 C) (Temporal) Ht 1.6 m (5' 3 ) Wt 76.1 kg (167 lb 12.8 oz) BMI 29.72 kg/m *Portions of this note may have been created with [employer] or other software which leads to grammatical and typographical errors which are not safety representative of the intent with my spoken words. * Debra Max DO - 02/07/2023 2:00 PM EDT Chief Complaint Patient presents with Left Knee - Pain Pain Radiation To: none Pain Duration: 01/13/2023 Pain Frequency: constant Pain Quality: aching, soreness Factors That Aggravate Pain: activity Factors That Relieve Pain: rest Works for [employer] ([employer] Here for initial consultation forleft knee pain. Pain is located posteriorly and radiates down the lower extremity. Recently seen inthe ED and ultrasound of the left lower extremity from 01/16/23 was negative for DVT. History of CKD. Pertinent medical records and imaging reviewed. IMPRESSION/PLAN: Multiple xray views of the joint were ordered and interpreted by me. Xrays demonstrate mild narrowing. 1. Mild left knee DJD. Continue current conservative treatment. Medication management: We will avoid oral NSAIDs due to history of CKD. Topical Diclofenac prescribed. Therapeutic exercises: Physical therapy prescribed. Recommended follow up with PCP regarding lower extremity cramping. Follow-up: 6-8 weeks for re-evaluation. KNEE EXAM LEFT RIGHT Inspection No effusion. No deformity. No effusion. No deformity. Paltation No tenderness to palpation. No tenderness to palpation. ROM 0-130 degrees 0-130 degrees Strength 5/5 in flexion & extension 5/5 in flexion and extension Gait: Non-antalgic Yennifer: No laxity and firm end point. Posterior drawer: No laxity and firm end point. No laxity with varus/valgus maneuver. Thomas: Negative. Visit Vitals Temp 98 F (36.7 C) (Temporal) Ht 1.6 m (5' 3 ) Wt 76.1 kg (167 lb 12.8 oz) BMI 29.72 kg/m *Portions of this note may have been created with [employer] or other software which leads to grammatical and typographical errors which are not safety representative of the intent with my spoken words. Clinical field technical assistant/AT/MA was acting as a scribe today for this note. I have performed all essentialcomponents of the history, and physical exam. I have confirmed the diagnosis and developed a plan of care at this visit. I have reviewed the note following the visit and have made edits as appropriate to my evaluation and plan of care. Debra Max DO [facility] Note* ARVIN Muñoz - 01/16/2023 8:47 PM EDT Patient given ice pack per request [facility]04-13-2023 Emergency department Note* ARVIN Muñoz - 01/16/2023 8:47 PM EDT Patient given ice pack per request documented in this [facility]02-24-2023 History of Present illness Narrative* Nicolle Ponce - 11/29/2022 2:00 PM EST Nurse Note: Review of Systems Constitutional: Negative. HENT: Negative. Eyes: Negative. Respiratory: Negative. Cardiovascular: Negative. Gastrointestinal: Negative. Endocrine: Negative. Genitourinary: Negative. Musculoskeletal: Negative. Allergic/Immunologic: Negative. Neurological: Negative. Hematological: Negative. Psychiatric/Behavioral: Negative. Nursing Assessment: Physical Exam NEW PATIENT FOR HYDRO No urinary complaints at this time Denies all pain PVR: 0 Lab Results Component Value Date APPEARANCE clear 11/29/2022 COLOR yellow 11/29/2022 SPECIFICGRAV 1.025 11/29/2022 BLOOD TRACE-INTACT 11/29/2022 PH 5.0 11/29/2022 PROTEIN 100 11/29/2022 UROBILINOGEN 0.2 11/29/2022 NITRITE neg 11/29/2022 LEUKOCYTE neg 11/29/2022 LEUKOCESTUR NEGATIVE 11/20/2022 * Markie Cleveland CNP - 11/29/2022 2:00 PM EST HISTORY OF PRESENT ILLNESS: Azeb Hutchison is a 56 y.o. female presenting today as a new patient forevaluation of hydronephrosis. Previous renal ultrasound showed mild to moderate hydronephrosis of the left kidney. Follow up CT urogram failed to show any urologic abnormalities. Previously seen hydronephrosis was resolved. No masses noted. No stones. A left renal cyst was noted. She denies bothersome voiding dysfunction, gross hematuria, or recurrent UTIs. UA- Trace-intact blood, 100 prot PVR- 0 MEDICAL HISTORY INCLUDES: CKD. Denies family history of urologic malignancies. She is a former smoker. No aspirin or blood thinner use. DATA REVIEWED: Referring Physician Progress Notes, urine culture, renal function, CT urogram, UA. Independent interpretation of CT urogram. ASSESSMENT AND PLAN: 1.) Hydronephrosis- Resolved. No abnormalities on recent CT urogram. US possibly picking up on renal cyst. We will send urine for microscopic testing as it shows trace blood. Call if positive for blood. At this time she does not have any urologic conditions warranting further workup. Follow up yearly and as needed. Over 30 minutes spent with chart preparation, chart review, and face to face time with patient. Patient was advised to call with any questions or concerns. If symptoms worsen patient was advised to follow up in our office or the Emergency Dept. Benefits, Risks, Contraindications, and Complications of recommended treatments were explained the patient understands and agrees to proceed with plan. History Allergies Allergen Reactions Albuterol Codeine Morphine Penicillins Duloxetine unknown Lisinopril Cough has Chronic kidney disease, stage III (moderate); Allergic atopic asthma, mild persistent, uncomplicated; and Other hyperlipidemia on their problem list. Current Outpatient Medications Medication Sig Dispense Refill Calcifediol ER ([place]) 30 MCG Cap CR Take 1 capsule by mouth daily. 90 capsule 3 Lisinopril 5 MG tablet TAKE 1 TABLET BY MOUTH EVERY DAY 30 tablet 1 No current facility-administered medications for this visit. family history includes Diabetes in her maternal aunt, maternal grandmother, and mother; Hypertension in her mother; Kidney Disease in her mother and sister; Other - Specify in her mother. Past Medical History: Diagnosis Date Asthma CKD (chronic kidney disease) stage 3, GFR 30-59 ml/min Essential hypertension, benign Hyperlipidemia Past Surgical History: Procedure Laterality Date ARTHROPLASTY ANKLE TOTAL N/A 07/31/2022 HYSTERECTOMY REDUCTION REVISION BREAST RELEASE CARPAL TUNNEL N/A REMOVAL CATARACT (PEM) N/A Social History Tobacco Use Smoking Status Former Smokeless Tobacco Never Social History Substance and Sexual Activity Alcohol Use Yes Comment: social Physical Examination: Vital Signs: Resp 18 Ht 1.6 m (5' 3 ) Wt 73.9 kg (163 lb) BMI 28.87 kg/m Smoking Status Former Constitutional: Oriented to person, place, and time. Appears well developed and well nourished. Eyes: conjunctiva/corneas clear, normal vision Ears/Nose/Mouth Eyes -EOMI. Ears - External normal ear. Hearing normal. Mouth - Lips normal color. Head/Neck: Face symmetrical, trachea midline, Head - Normocephalic. symmetrical. Normal ROM, neck supple. Thyroid normal. Pulmonary/chest: Normal respiratory effort, non-labored breathing. Abdominal/GI: Soft, non-tender, no organomegaly. Bowel sounds normal. Cardiovascular Normal rate and regular rhythm. No Murmurs or Rubs, Radial pulses normal. Circulation Normal. Neurologic: Alert and oriented x3. No focal neurological deficits noted. Extremities: No clubbing, cyanosis, or edema noted, no calf tenderness bilaterally. Skin: Warm and dry.Normal turgor, well-hydrated, no rashes noted. Psych: Normal mood and affect. Behavior is normal. The documentation within this encounter was likely aided with [employer], an electronic pharmacovigilance specialist device. Please excuse any grammatical errors or omissions that may not have been recognized at the time of this encounter. documented in this encounterReg[facility] Company01-19-2023 History and physical note* Rudy Iniguez MD - 10/24/2022 3:00 PM EST I saw Azeb Hutchison at [facility] on 10/24/2022. Assessment/Plan: 56 y/o female with history of CKD IIIB, lipidemia and HTN is here for CKD care. 1) CKD IIIB Cr 1.58 UA disclosed proteinuria. 24 hour urine pr 578 Will get UA. Will get renal panel. 2) HTN SBP 150s Will start lisinopril 5mg PO Qday. 3) Protienuria Will get spot urine pr/cr. Will consider kidney biopsy. Reason for Consultation: CKD IIIB Consulting Physician: David History of Present Illness: Azeb Hutchison is a 56 y.o. female who we have been consulted to see on 10/24/2022. 56 y/o female with history of CKD IIIB, lipidemia and HTN is here for CKD care. No NSAID No other complaint. She is emotional. Past Medical History: Diagnosis Date Asthma CKD (chronic kidney disease) stage 3, GFR 30-59 ml/min Essential hypertension, benign Hyperlipidemia (Not in a hospital admission) Scheduled Meds: IV Infusions: Allergies Allergen Reactions Albuterol Codeine Morphine Penicillins Duloxetine unknown Family History Problem Relation Age of Onset Kidney Disease Mother Diabetes Mother Other - Specify Mother fibromyalgia Hypertension Mother Kidney Disease Sister Diabetes Maternal Aunt Diabetes Maternal Grandmother Social History Tobacco Use Smoking status: Former Smokeless tobacco: Never Substance Use Topics Alcohol use: Yes Comment: social Drug use: Never Review of Systems: General ROS: Otherwise remainder of 14-point ROS is negative HEENT: No complaints of headache change in vision, nose or ear No sinus issues Cadiovascular: No chest pain, no diaphoresis, no palpitation Gastrointestinal: No complaints of dysphagia, nausea, vomiting. No change in stool pattern, consistency, or color. No epigastric pain Genitourinary: No complaints of dysuria, nocturia, polyuria, or hematuria. Pulmonary: No cough, no SOB, no wheezing Musculoskeletal: No arthralgias, muscle aches, or pains. Neurological: No weakness, numbness, or incoordination Integumentary: No rashes, itching. No hair or nail changes Psychiatric: No anxiety, depression, or sleep disturbance Hematologic / lymphatic: No easy bruising or bleeding. No enlarged lymph nodes. Allergic / immunologic: No hay fever/seasonal nasal congestion. No food/medication reactions Physical Examination: Vital Signs @VSRANGES@ No intake/output data recorded. @IOTHISSHIFT@ BP 150/80 Pulse 76 Wt 75 kg (165 lb 4.8 oz) SpO2 98% BMI 29.28 kg/m Smoking Status Former General: Alert, oriented and cooperative. NAD Skin: Normal in appearance, texture, and temperature HEENT: Scalp normal. Pupils equally round,reactive to light and accommodation, sclera and conjunctiva normal. Nasal mucosa normal. Oral pharynx is normal without erythema or exudate. Tongue and gums are normal. Neck: Easily moveable without resistance, no abnormal adenopathy in the cervical or supraclavicular areas. Trachea is midline and thyroid gland is normal without masses. Carotid artery upstroke is normal bilaterally without bruits. CV: RRR, nl S1 and S2, no m/g/r Lungs: Lungs are clear to auscultation and percussion bilaterally No wheezing, no crackle. Normal effort. Abdomen: The abdomen is symmetrical without distention; bowel sounds are normal in quality and intensity in all areas. No masses or splenomegaly are noted; noo hepatomegaly Extremities: No cyanosis, clubbing, or edema are noted. Peripheral pulses in the femoral, popliteal, anterior tibial, dorsalis pedis,brachial, and radial areas are normal. Nodes: No palpable nodes in the cervical, supraclavicular, axillary or inguinal areas. Neurological: Cranial nerves II-XII are normal. Motor and sensory examination of the upper and lower extremities is normal. Gait and cerebellar function are also normal. Reflexes are normal and symmetrical bilaterally in both extremities. Relevant Data: Lab Results Component Value Date SODIUM 136 09/09/2022 POTASSIUM 4.5 09/09/2022 CHLORIDE 102 09/09/2022 CO2 22 09/09/2022 BUN 21 (H) 09/09/2022 CREATSERUM 1.58 (H) 09/09/2022 GLUCOSE 81 09/09/2022 Lab Results Component Value Date CALCIUM 9.1 09/09/2022 Lab Results Component Value Date WBC 5.6 12/21/2021 HGB 12.9 12/21/2021 HCT 37.8 12/21/2021 PLATELET 303 12/21/2021 MCV 90.5 12/21/2021 No results found for: SPGRVTYUR, SPECGRAVUR, SPECGRAVUR, GLUCOSEURINE, BILIRUBINURI, BILIRUBINURI, KETONESURINE, BLOODURINE, PHURINE, NITRITEURINE, NITRITESURIN, LEUKOCESTUR, WBCURINE, RBCURINE, BACTERIAURIN Lab Results Component Value Date CREATSERUM 1.58 (H) 09/09/2022 [facility] Work Phone: [phone] 240-152501-19-2023 History and physical note* Rudy Iniguez MD - 10/24/2022 3:00 PM EST I saw Azeb Hutchison at [facility] on 10/24/2022. Assessment/Plan: 56 y/o female with history of CKD IIIB, lipidemia and HTN is here for CKD care. 1) CKD IIIB Cr 1.58 UA disclosed proteinuria. 24 hour urine pr 578 Will get UA. Will get renal panel. 2) HTN SBP 150s Will start lisinopril 5mg PO Qday. 3) Protienuria Will get spot urine pr/cr. Will consider kidney biopsy. Reason for Consultation: CKD IIIB Consulting Physician: David History of Present Illness: Azeb Htuchison is a 56 y.o. female who we have been consulted to see on 10/24/2022. 56 y/o female with history of CKD IIIB, lipidemia and HTN is here for CKD care. No NSAID No other complaint. She is emotional. Past Medical History: Diagnosis Date Asthma CKD (chronic kidney disease) stage 3, GFR 30-59 ml/min Essential hypertension, benign Hyperlipidemia (Not in a hospital admission) Scheduled Meds: IV Infusions: Allergies Allergen Reactions Albuterol Codeine Morphine Penicillins Duloxetine unknown Family History Problem Relation Age of Onset Kidney Disease Mother Diabetes Mother Other - Specify Mother fibromyalgia Hypertension Mother Kidney Disease Sister Diabetes Maternal Aunt Diabetes Maternal Grandmother Social History Tobacco Use Smoking status: Former Smokeless tobacco: Never Substance Use Topics Alcohol use: Yes Comment: social Drug use: Never Review of Systems: General ROS: Otherwise remainder of 14-point ROS is negative HEENT: No complaints of headache change in vision, nose or ear No sinus issues Cadiovascular: No chest pain, no diaphoresis, no palpitation Gastrointestinal: No complaints of dysphagia, nausea, vomiting. No change in stool pattern, consistency, or color. No epigastric pain Genitourinary: No complaints of dysuria, nocturia, polyuria, or hematuria. Pulmonary: No cough, no SOB, no wheezing Musculoskeletal: No arthralgias, muscle aches, or pains. Neurological: No weakness, numbness, or incoordination Integumentary: No rashes, itching. No hair or nail changes Psychiatric: No anxiety, depression, or sleep disturbance Hematologic / lymphatic: No easy bruising or bleeding. No enlarged lymph nodes. Allergic / immunologic: No hay fever/seasonal nasal congestion. No food/medication reactions Physical Examination: Vital Signs @VSRANGES@ No intake/output data recorded. @IOTHISSHIFT@ BP 150/80 Pulse 76 Wt 75 kg (165 lb 4.8 oz) SpO2 98% BMI 29.28 kg/m Smoking Status Former General: Alert, oriented and cooperative. NAD Skin: Normal in appearance, texture, and temperature HEENT: Scalp normal. Pupils equally round,reactive to light and accommodation, sclera and conjunctiva normal. Nasal mucosa normal. Oral pharynx is normal without erythema or exudate. Tongue and gums are normal. Neck: Easily moveable without resistance, no abnormal adenopathy in the cervical or supraclavicular areas. Trachea is midline and thyroid gland is normal without masses. Carotid artery upstroke is normal bilaterally without bruits. CV: RRR, nl S1 and S2, no m/g/r Lungs: Lungs are clear to auscultation and percussion bilaterally No wheezing, no crackle. Normal effort. Abdomen: The abdomen is symmetrical without distention; bowel sounds are normal in quality and intensity in all areas. No masses or splenomegaly are noted; noo hepatomegaly Extremities: No cyanosis, clubbing, or edema are noted. Peripheral pulses in the femoral, popliteal, anterior tibial, dorsalis pedis,brachial, and radial areas are normal. Nodes: No palpable nodes in the cervical, supraclavicular, axillary or inguinal areas. Neurological: Cranial nerves II-XII are normal. Motor and sensory examination of the upper and lower extremities is normal. Gait and cerebellar function are also normal. Reflexes are normal and symmetrical bilaterally in both extremities. Relevant Data: Lab Results Component Value Date SODIUM 136 09/09/2022 POTASSIUM 4.5 09/09/2022 CHLORIDE 102 09/09/2022 CO2 22 09/09/2022 BUN 21 (H) 09/09/2022 CREATSERUM 1.58 (H) 09/09/2022 GLUCOSE 81 09/09/2022 Lab Results Component Value Date CALCIUM 9.1 09/09/2022 Lab Results Component Value Date WBC 5.6 12/21/2021 HGB 12.9 12/21/2021 HCT 37.8 12/21/2021 PLATELET 303 12/21/2021 MCV 90.5 12/21/2021 No results found for: SPGRVTYUR, SPECGRAVUR, SPECGRAVUR, GLUCOSEURINE, BILIRUBINURI, BILIRUBINURI, KETONESURINE, BLOODURINE, PHURINE, NITRITEURINE, NITRITESURIN, LEUKOCESTUR, WBCURINE, RBCURINE, BACTERIAURIN Lab Results Component Value Date CREATSERUM 1.58 (H) 09/09/2022 documented in this [facility]12-05-2022 NoteCLINICAL DATA: Left calf cramping. PROCEDURE: Left lower extremity venous duplex ultrasound TECHNIQUE: Woodard-scale, color flow, and waveform spectral analysis was performed of the left lower extremity. FINDINGS: The left common femoral, profunda femoral, femoral, and popliteal veins were compressible. The saphenous vein was compressible. No venous thrombosis was seen. The veins fill with color Doppler. Augmentation was normal. [id number] Emergency department Note* Ann-Marie Maier RN - 09/09/2022 5:04 PM EST Called name in waiting room. No one answered [facility]12-05-[facility]22 Emergency department Note* Ann-Marie Maier RN - 09/09/2022 5:04 PM EST Called name in waiting room. No one answered documented in this encounterRegency Hospital Company05-06-2022 History of Present illness Narrative* Sandy Manrique, PT - 02/08/2022 3:15 PM EDT [facility] OUTPATIENT REHABILITATION DAILY TREATMENT NOTE Today's Date 02/08/2022 Patient Name: Azeb Hutchison Date of : 1965 Current Visit #: 24 Authorized Visits: 199 Case Name: R ankle ORIF History: Pre-Treatment Pain Scale: 2 Symptoms: gradually improved Functional Diagnosis: 1. Ankle fracture, bimalleolar, closed, right, initial encounter Clinical Information: Subjective: Pt continues to complete exercises, but still describes her pain as a stiffness. She returns to the physician next Friday. Objective Treatments: Physical Therapy Exercise Log - 02/08/22 1533 OTHER Precautions/Contraindications IE Gloria Manrique 15:20-16:10 Notes 100% WB Vitals R ankle ORIF/billy splints Therapeutic Exercise (03717) Parameters AROM PF/DF 10x3 EV/IN 10x3 Intervention standing hip abd 2x10 bilat, mini squats 2x10 Parameters wedge gastoc/DF stretch 20 x5 (constant cuing to keep heel down and avoid knee hyperext) Parameters -- Intervention -- Parameters modified mini lunges 10x2 each to improve ankle mobility (in parallel bars), Added posterior squat with R foot in front Intervention bridges with 5 holds 2x10, clamshell with RTB 2x10 bilat Parameters Toe curls and extensions x 25 to START Intervention lateral ambulation 30'x 2 lap Parameters TRUE Stretch ankle DF, hamstring, PF Intervention seated single heel raises with 25# plate x 10 with slow eccentric control followed by x10 controlled reps x 3 sets, then 15 hold in PF with slowed eccentric control x 5 Parameters standing heel raises in parallel bars 2x10 with eccentric control Intervention Nustep 10 min L2 with UE A and VC's to keep (R) heel down Parameters HEP: ankle AROM PF/DF inver/Ever, LAQ, towel scrunches, SLR, SL abd, added clamshells, bridges, standing hip abd, and lat amb Add more exercises? Yes Neuro Re-Ed ([id number]) Intervention TR-X Weight shifting squats (front, posterior chain) 2 x 10 each- Parameters tandem stance with turn (made dynamic this date), posterior chain x 10 Manual Therapy (67941) Intervention Gentle PROM DF/PF x 10, gentle Inver/Ever x 10 Parameters Grade 2-3 posterior mobilizations with intermit MWM and calcaneal distraction 8 mins NT due to trialing MET for TA and STM/DTM to muscle belly 8 Gait Training (32000) Intervention Hurdles for IC heel strike, slowed down gait with no hurdles to emphasis better mechanics with less of a heel strike, worked on lengthening stride and midstance. Told pt to verbally tellher self what she is working on at home while she does it example, heel to toe) 12' PT Treatment Times Therex Total Time 20 Manual Therapy Total Time 8 Gait Training Total Time 12 Direct Treatment Time 40 Total Treatment Time 50 Goals: Physical Therapy Ortho Goals: MOBILITY: Patient will be able to ambulate for 15 minutes in community without difficulty in 6 weeks. 11/15/2021 Pt able to ambulate with FWW for about 5-10 minutes 01/10/2022 Pt unable without crutch. She is able to ambulate for >15 minutes with an aid. MOBILITY: Patient will be able to ambulate with no AD and minimal deviations in 6 weeks. 01/10/2022 Still using one crutch for long distances SELF CARE: Patient will be able to complete ADL's including bathing, dressing, and hair care without difficulty in 4 weeks. 01/10/2022 MET IMPAIRMENT: Improve pain from 8/10 to 2/10 during activity in 6 weeks 01/10/2022 1/10-5/10 pain IMPAIRMENT: Improve MMT of Right Ankle PF from <3/5 to 4/5 in 6 weeks 10/23/2021 Still limited inAROM, but able to hold a fair contraction and complete seated heel raises (x 20) with no increase in pain. 01/10/22 Able to maintain push for > 1 minute in isometric. Standing calf raises are weak, but able to complete 10 IMPAIRMENT: Improve AROM of R Ankle from -8 to 0 degrees in 3 weeks. 2 degrees IMPAIRMENT: Improve AROM of Right Ankle DF from -8 degrees to 10 degrees in 6 weeks. 01/10/22 2 degrees OTHER: Patient will increase FOTO score 21 to at least 61 to show MDC/MCII and expected functional outcome in 6 weeks. 10/23/2021 42 this date. Forgot to take 01/10/22 Will record next visit OTHER: Patient will be able to properly demonstrate independence with HEP in 4 weeks. 10/23/2021 MET Re-cert 01/10/22 2 x 6 weeks Patient Education: Quality of movement and HEP Adherence with patient demonstrated understanding. Post-Treatment Pain Scale: 1 Assessment: Patient had an expected response to treatment. Focused more on tibialis anterior this date to see if helped with overall mobility. Then focused on gait. Pt is still greatly limited by functional DF during gait leading to an early heel rise. Swelling has greatly improved, but still getting more than expected towards the end of the day. Pt has showed good improvements in the past two weeks, but still continues to progress slow due to higher than expected complexity. Pt will continue to benefit with expected continual progress to improve overall function and gait. Skilled Intervention demonstrated by modifications of treatment per exercise log including increased load, plane progressions, increased cueing and assessment of patient's response and safety interventions per exercise log. Progress towards goals unexpected due to higher than anticipated complexity. Plan for Next Visit: Treatment Visit with focus on ask about follow-up with physician Sandy Manrique PT Licensed PT [id number] documented in this [id number] History of Present illness Narrative* Debra Anand, BUNDLING MACHINE OPERATOR - 01/29/2022 4:00 PM EDT [facility] OUTPATIENT REHABILITATION DAILY TREATMENT NOTE Today's Date 01/29/2022 Patient Name: Azeb Hutchison Date of : 1965 Current Visit #: [id number] Authorized Visits: 199 Case Name: R ankle ORIF History: Pre-Treatment Pain Scale: 7/10 pain in (R) superior/anterior ankle and (R) billy Symptoms: sore/stiff Functional Diagnosis: 1. Ankle fracture, bimalleolar, closed, right, initial encounter Clinical Information: Subjective: Pt notes some muscle soreness after last treatment session and notes compliance with HEP. Pt notes increased pain and sx started yesterday afternoon and notes increased activity over the weekend with yard work but reports wearing boot and notes no increase in pain and sx during or afterbut noted the increased pain a day and a half later. Objective: Cont'd with ex's and manual as per flow sheet while progressing as tolerated. Added bridges with a hold and SL clamshells with resistance, and standing hip abd (all progressed to hep with written and pictured handout), all to improve LE strength. Gameready to (R) foot/ankle to end. Treatments: Physical Therapy Exercise Log - 01/29/22 1602 OTHER Precautions/Contraindications IE Gloria Manrique [phone] Notes 100% WB Vitals R ankle ORIF/billy splints Therapeutic Exercise (38627) Parameters AROM PF/DF 10x3 EV/IN 10x3 Intervention standing hip abd 2x10 bilat, mini squats 2x10 Parameters wedge gastoc/DF stretch 20 x5 (constant cuing to keep heel down and avoid knee hyperext) Parameters GameReady at End, 36 deg elevated 10' to END to foot/ankle Intervention amb without AD and in shoe 75'x1, 80'x1 Parameters modified mini lunges 10x2 each to improve ankle mobility (in parallel bars), Added posterior squat with R foot in front Intervention bridges with 5 holds 2x10, clamshell with RTB 2x10 bilat Parameters Toe curls and extensions x 25 to START Intervention lateral ambulation 30'x 2 lap Parameters TRUE Stretch ankle DF, hamstring, PF Intervention seated single heel raises with 25# plate x 10 with slow eccentric control followed by x10 controlled reps x 3 sets, then 15 hold in PF with slowed eccentric control x 5 Parameters standing heel raises in parallel bars 2x10 with eccentric control Intervention Nustep 10 min L2 with UE A and VC's to keep (R) heel down--NT Parameters HEP: ankle AROM PF/DF inver/Ever, LAQ, towel scrunches, SLR, SL abd, added clamshells, bridges, standing hip abd, and lat amb Add more exercises? Yes Neuro Re-Ed ([id number]) Intervention TR-X Weight shifting squats (front, posterior chain) 2 x 10 each--NT Parameters tandem stance with turn (made dynamic this date), posterior chain x 10 Parameters -- Manual Therapy (44975) Intervention Gentle PROM DF/PF x 10, gentle Inver/Ever x 10 Parameters Grade 2-3 posterior mobilizations with intermit MWM and calcaneal distraction 8 mins Gait Training (87495) Intervention -- PT Treatment Times Therex Total Time 35 Neuro Re-Ed Total Time 5 Manual Therapy Total Time 12 Modalities Total Time 10 Direct Treatment Time 62 Total Treatment Time 65 Goals: Physical Therapy Ortho Goals: MOBILITY: Patient will be able to ambulate for 15 minutes in community without difficulty in 6 weeks. 11/15/2021 Pt able to ambulate with FWW for about 5-10 minutes 01/10/2022 Pt unable without crutch. She is able to ambulate for >15 minutes with an aid. MOBILITY: Patient will be able to ambulate with no AD and minimal deviations in 6 weeks. 01/10/2022 Still using one crutch for long distances SELF CARE: Patient will be able to complete ADL's including bathing, dressing, and hair care without difficulty in 4 weeks. 01/10/2022 MET IMPAIRMENT: Improve pain from 8/10 to 2/10 during activity in 6 weeks 01/10/2022 1/10-5/ pain IMPAIRMENT: Improve MMT of Right Ankle PF from <3/5 to 4/5 in 6 weeks 10/23/2021 Still limited inAROM, but able to hold a fair contraction and complete seated heel raises (x 20) with no increase in pain. 01/10/22 Able to maintain push for > 1 minute in isometric. Standing calf raises are weak, but able to complete 10 IMPAIRMENT: Improve AROM of R Ankle from -8 to 0 degrees in 3 weeks. 2 degrees IMPAIRMENT: Improve AROM of Right Ankle DF from -8 degrees to 10 degrees in 6 weeks. 01/10/22 2 degrees OTHER: Patient will increase FOTO score 21 to at least 61 to show MDC/MCII and expected functional outcome in 6 weeks. 10/23/2021 42 this date. Forgot to take 01/10/22 Will record next visit OTHER: Patient will be able to properly demonstrate independence with HEP in 4 weeks. 10/23/2021 MET Re-cert 01/10/22 2 x 6 weeks Patient Education: Quality of movement, Verbal HEP, HEP Adherence, Diagnosis and recovery specific education, Pain Management, Adaptive/Assistive equipment and VC's, demo, education, rest breaks as needed, ankle mechanics, gait mechanics, exercise mechanics, with patient demonstrated understanding and verbalized understanding. Post-Treatment Pain Scale: 2 Assessment: Patient had an expected response to treatment. Pt required VC's and education as above to complete with Fair return demo and understanding. Pt with mod tightness in foot/ankle to begin. Pt still tends to revert back to compensatory patterns with gait requiring cueing to correct. Pt with good tolerance of progressions. Pt performed ex's without c/o increase in pain and with good relief of overall sx with vaso to end. Skilled Intervention demonstrated by modifications of treatment per exercise log including increased rate, plane progressions, increased cueing, increased volume, assessment of patient's response andmodalities as indicated and safety interventions per exercise log. Progress towards goals as expected but slow with progressions Plan for Next Visit: Monitor response to today's treatment session and continue to progress pt toward set goals in POC as tolerated. Debra Anand PTA STATE LICENSE, [id number] documented in this [id number] History of Present illness Narrative* Debra Anand PTA - 01/22/2022 3:15 PM EDT [facility] OUTPATIENT REHABILITATION DAILY TREATMENT NOTE Today's Date 01/23/2022 Patient Name: Azeb Hutchison Date of : 1965 Current Visit #: 21 Authorized Visits: 199 Case Name: R ankle ORIF History: Pre-Treatment Pain Scale: 5/10 pain in (R) ant ankle and billy region Symptoms: stiff/sore Functional Diagnosis: 1. Ankle fracture, bimalleolar, closed, right, initial encounter Clinical Information: Subjective: Pt notes increased soreness after last session and notes compliance with HEP. Pt notes not using AD at home but using cane at work and out and about. Objective: Cont'd with ex's, amb, and manual as per flow sheet while working on gastroc strengthening, gait mechanics, ankle strength and mobility while ending with gameready to decrease pain and sx.Verbal HEP given and reviewed. Treatments: Physical Therapy Exercise Log - 01/22/22 1519 OTHER Precautions/Contraindications IE Gloria Manrique [phone] Notes weightbearing from 10 to 100% of body weight over approximately 6 weeks of physical therapy in the boot and then wean out of the boot Vitals R ankle ORIF/billy splints Therapeutic Exercise (38741) Parameters AROM PF/DF 10x3 EV/IN 10x3 Parameters wedge gastoc/DF stretch 15 x5 (constant cuing to keep heel down and avoid knee hyperext) Intervention -- Parameters GameReady at End, 36 deg elevated 10' to END to foot/ankle Intervention amb without AD and in shoe 100'x1, 75'x 1 Parameters modified mini lunges 10x2 each to improve ankle mobility (in parallel bars), Added posterior squat with R foot in front Intervention -- Parameters Toe curls and extensions x 25 to START Intervention lateral ambulation in // bars 2min without UE A Parameters TRUE Stretch ankle DF, hamstring, PF Intervention seated single heel raises with 25# plate x 10 with slow eccentric control followed by x10 controlled reps x 3 sets, then 15 hold in PF with slowed eccentric control x 5 Parameters standing heel raises in parallel bars 2x10 with eccentric control Intervention Nustep 10 min L2 with UE A and VC's to keep (R) heel down Parameters HEP: ankle AROM PF/DF inver/Ever, LAQ, towel scrunches, SLR, SL abd Add more exercises? Yes Neuro Re-Ed (42217) Intervention TR-X Weight shifting squats (front, posterior chain) x 10 each Intervention -- Intervention -- Manual Therapy (43445) Intervention Gentle PROM DF/PF x 10, gentle Inver/Ever x 10 Parameters Grade 2-3 posterior mobilizations with intermit MWM and calcaneal distraction 8 mins PT Treatment Times Therex Total Time 30 Neuro Re-Ed Total Time 10 Manual Therapy Total Time 8 Modalities Total Time 10 Direct Treatment Time 58 Total Treatment Time 65 Goals: Physical Therapy Ortho Goals: MOBILITY: Patient will be able to ambulate for 15 minutes in community without difficulty in 6 weeks. 11/15/2021 Pt able to ambulate with FWW for about 5-10 minutes 01/10/2022 Pt unable without crutch. She is able to ambulate for >15 minutes with an aid. MOBILITY: Patient will be able to ambulate with no AD and minimal deviations in 6 weeks. 01/10/2022 Still using one crutch for long distances SELF CARE: Patient will be able to complete ADL's including bathing, dressing, and hair care without difficulty in 4 weeks. 01/10/2022 MET IMPAIRMENT: Improve pain from 8/10 to 2/10 during activity in 6 weeks 01/10/2022 1/10-5/10 pain IMPAIRMENT: Improve MMT of Right Ankle PF from <3/5 to 4/5 in 6 weeks 10/23/2021 Still limited inAROM, but able to hold a fair contraction and complete seated heel raises (x 20) with no increase in pain. 01/10/22 Able to maintain push for > 1 minute in isometric. Standing calf raises are weak, but able to complete 10 IMPAIRMENT: Improve AROM of R Ankle from -8 to 0 degrees in 3 weeks. 2 degrees IMPAIRMENT: Improve AROM of Right Ankle DF from -8 degrees to 10 degrees in 6 weeks. 01/10/22 2 degrees OTHER: Patient will increase FOTO score 21 to at least 61 to show MDC/MCII and expected functional outcome in 6 weeks. 10/23/2021 42 this date. Forgot to take 01/10/22 Will record next visit OTHER: Patient will be able to properly demonstrate independence with HEP in 4 weeks. 10/23/2021 MET Re-cert 01/10/22 2 x 6 weeks Patient Education: Quality of movement, Verbal HEP, HEP Adherence, Diagnosis and recovery specific education, Pain Management, Adaptive/Assistive equipment and VCs, ankle mechanics, exercise mechanics, stretch mechanics, gait mechanics, demo, VC's, education, rest breaks as needed. with patient demonstrated understanding and verbalized understanding. Post-Treatment Pain Scale: 3 after vaso Assessment: Patient had an expected response to treatment. Pt required VC's and education as above to complete with Fair return demo and understanding. Pt with mod stiffness and min swelling in ankle to begin which decreased with ex'x, gait, and vaso to end.Pt with improved ankle mobility with gait but still lacking push off, stance time, and heel strike.Pt tolerated progressions well this date without c/o increase in pain. Skilled Intervention demonstrated by modifications of treatment per exercise log including increased rate, increased cueing, increased mobility, increased volume, assessment of patient's response andmodalities as indicated and safety interventions per exercise log. Progress towards goals as expected. Plan for Next Visit: Monitor response to today's treatment session and continue to progress pt toward set goals in POC as tolerated. Debra Anand PTA STATE LICENSE, [id number] documented in this [id number] History of Present illness Narrative* Sandy Manrique, PT - 01/15/2022 3:15 PM EDT [facility] OUTPATIENT REHABILITATION DAILY TREATMENT NOTE Today's Date 01/15/2022 Patient Name: Azeb Hutchison Date of : 1965 Current Visit #: 20 Authorized Visits: 199 Case Name: R ankle ORIF History: Pre-Treatment Pain Scale: 2 Symptoms: gradually improved Functional Diagnosis: 1. Ankle fracture, bimalleolar, closed, right, initial encounter Clinical Information: Subjective: Pt reports limited pain and more soreness. Still completed exercises at work and home throughout the day. Objective Treatments: Physical Therapy Exercise Log - 01/15/22 1605 OTHER Precautions/Contraindications IE Gloria Manrique 3:20-4 Notes weightbearing from 10 to 100% of body weight over approximately 6 weeks of physical therapy in the boot and then wean out of the boot Vitals R ankle ORIF/billy splints Therapeutic Exercise (21415) Parameters AROM PF/DF 10x3 EV/IN 10x3 (limited ROM with both)-HEP Parameters wedge gastoc/DF stretch 10 x5 (constant cuing to keep heel down and avoid knee hyperext)-held/bring back Intervention heel taps in parallel bars x10 on 4 inch, step downs 2 inch x 5, 4 inch x 10 in parallel bars-held/bring back Parameters GameReady at End, 36 deg elevated 10' to END (started with ankle , calf) Parameters modified mini lunges 10x2 each to improve ankle mobility (in parallel bars), Added posterior squat with R foot in front Intervention Longsitting gastroc and soleus stretch with towel: 30 x 10- held/bring back Parameters Toe curls and extensions x 20 to START Intervention lateral ambulation in // bars 2min Parameters TRUE Stretch ankle DF, hamstring, PF Parameters mini squats 2x10 with VC's and demo for mechanics to improve ankle DF-held/bring back Intervention Nustep 10 min L2 with UE A and VC's to keep (R) heel down Parameters HEP: ankle AROM PF/DF inver/Ever, LAQ, towel scrunches, SLR, SL abd Add more exercises? Yes Neuro Re-Ed (17019) Intervention TR-X Weight shifting squats (front, posterior chain) x 10 each Intervention stagger stance ( B) modified as needed with soft knee bend with rotational movement-held/bring back Manual Therapy (49930) Intervention Gentle PROM DF/PF x 20, gentle Inver/Ever x 10-held/bring back Parameters Grade 2-3 posterior mobilizations with intermit MWM and calcaneal distraction PT Treatment Times Therex Total Time 20 Neuro Re-Ed Total Time 10 Manual Therapy Total Time 10 Modalities Total Time 10 Direct Treatment Time 50 Goals: Physical Therapy Ortho Goals: MOBILITY: Patient will be able to ambulate for 15 minutes in community without difficulty in 6 weeks. 11/15/2021 Pt able to ambulate with FWW for about 5-10 minutes 01/10/2022 Pt unable without crutch. She is able to ambulate for >15 minutes with an aid. MOBILITY: Patient will be able to ambulate with no AD and minimal deviations in 6 weeks. 01/10/2022 Still using one crutch for long distances SELF CARE: Patient will be able to complete ADL's including bathing, dressing, and hair care without difficulty in 4 weeks. 01/10/2022 MET IMPAIRMENT: Improve pain from 8/10 to 2/10 during activity in 6 weeks 01/10/2022/-5/10 pain IMPAIRMENT: Improve MMT of Right Ankle PF from <3/5 to 4/5 in 6 weeks 10/23/2021 Still limited inAROM, but able to hold a fair contraction and complete seated heel raises (x 20) with no increase in pain. 01/10/22 Able to maintain push for > 1 minute in isometric. Standing calf raises are weak, but able to complete 10 IMPAIRMENT: Improve AROM of R Ankle from -8 to 0 degrees in 3 weeks. 2 degrees IMPAIRMENT: Improve AROM of Right Ankle DF from -8 degrees to 10 degrees in 6 weeks. 01/10/22 2 degrees OTHER: Patient will increase FOTO score 21 to at least 61 to show MDC/MCII and expected functional outcome in 6 weeks. 10/23/2021 42 this date. Forgot to take 01/10/22 Will record next visit OTHER: Patient will be able to properly demonstrate independence with HEP in 4 weeks. 10/23/2021 MET Re-cert 01/10/22 2 x 6 weeks Patient Education: Quality of movement, HEP Modification and HEP Adherence with patient verbalized understanding. Post-Treatment Pain Scale: 2 Assessment: Patient had an expected response to treatment. Focused more on functional WB mobility and lower extremity strength. Pt had relief with exercises this date with slight reactive effusion. Completed vaso in two parts to work on distal to proximal. Skilled Intervention demonstrated by modifications of treatment per exercise log including increased load, plane progressions and assessment of patient's response and safety interventions per exercise log. Progress towards goals as expected. Plan for Next Visit: Treatment Visit with focus on possible ESTIM for gastroc Sandy Manrique PT Licensed PT [id number] documented in this [id number] History of Present illness Narrative* Radha Calvillo, SHAKIRA - 12/11/2021 11:23 AM EST Physical therapy contacted Kenya LAZARO concerning patient's progress. Dr Eulalio John is at [facility] in [place]. Appointment made for patient 10 am 12/12/2021. Unable to contact patient VM full. I called patient's daughter Gilma she will take her mother to her appointment tomorrow. Addressand info given to daughter . She voices understanding. Clinicals faxed to [phone]. documented in this [id number] History of Present illness Narrative* Ni Tabitha Van, BUNDLING MACHINE OPERATOR - 12/07/2021 3:15 PM EST [facility] OUTPATIENT REHABILITATION DAILY TREATMENT NOTE Today's Date 12/07/2021 Patient Name: Azeb Hutchison Date of : 1965 Current Visit #: 18 Authorized Visits: 199 Case Name: R ankle ORIF History: Pre-Treatment Pain Scale: 5 Symptoms: gradually improved Functional Diagnosis: 1. Ankle fracture, bimalleolar, closed, right, initial encounter Clinical Information: Subjective: Pt comes in with stinging pain along anterior foot at ankle bend. She thinks that yesterday she did too much DF stretching. She has been exercising at her desk and staying active today but her pain and swelling persist. She had to take ibuprofen and ice last night (hasn't had to take pain meds for awhile). The pain is along anterior foot at ankle bend and it is up to 10/10 (quite tender to the touch). Pt tearful coming in today as she is fearful that she has set herself back. Ayesha came over and spoke to pt about maybe stretching it a little too much and the muscles getting irritated around her ankle bend. To back off today and to get back to it next week as tolerated. Pt was not able to cook pickled meat her new shoes before coming into therapy, she did state that they arrived at [facility]. Objective: Began with seated toe curls and extensions to warm up R ankle. Pt performed gentle strengthening ex's per log to improve functional ROM, strength and stability in R ankle/foot. Dialed program back this date but continued to focus on getting DF within pt's tolerance. Performed // bar activity and gait training with focus on heel strike and hitting all aspects of foot from heel to toe. Pt performed Nustep to continue challenging DF in R ankle. Ended with Game Ready to reduce swelling and pain. Treatments: Physical Therapy Exercise Log - 12/07/21 1299 OTHER Precautions/Contraindications IE Gloria Manrique 3:19PM-4:13PM Notes weightbearing from 10 to 100% of body weight over approximately 6 weeks of physical therapy in the boot and then wean out of the boot Vitals R ankle ORIF Therapeutic Exercise (42414) Parameters AROM PF/DF 10x3 EV/IN 10x3 (limited ROM with both)-HEP Parameters wedge gastoc/DF stretch 10 x5 (constant cuing to keep heel down and avoid knee hyperext)-held/bring back Intervention heel taps in parallel bars x10 on 4 inch, step downs 2 inch x 5, 4 inch x 10 in parallel bars-held/bring back Parameters GameReady at End, 36 deg elevated 15' to END Intervention lat up and over step ups 4 inch x 10 with UE A in parallel bars Parameters modified mini lunges 10x2 each to improve ankle mobility (in parallel bars) Intervention Longsitting gastroc and soleus stretch with towel: 30 x 10- held/bring back Parameters Toe curls and extensions x 20 to START Intervention lateral ambulation in // bars 2min Parameters mini squats 2x10 with VC's and demo for mechanics to improve ankle DF-held/bring back Intervention Nustep 10 min L2 with UE A and VC's to keep (R) heel down Parameters HEP: ankle AROM PF/DF inver/Ever, LAQ, towel scrunches, SLR, SL abd Add more exercises? Yes Neuro Re-Ed (81766) Parameters Lateral weight shifts with slight bend in knees to prevent genu recurvatum x [id number]/bring back Intervention kneeling on Airex ankle drivers with UE use with emphasis on keeping heel down (very limited motion) 5 10x2 then with manual OP from therapist (MWM) 10 x15 -did not do manual OP this date per pt's request Intervention stagger stance ( B) modified as needed with soft knee bend with rotational movement-held/bring back Parameters gait/step mechanics training with parallel bars working on step, heel strike, through topush of then retro return back x 15 with constant cuing, Tc, education, and demo all in parallel bars with UE A Manual Therapy (71947) Intervention Gentle PROM DF/PF x 20, gentle Inver/Ever x 10-held/bring back Parameters Grade 2-3 posterior mobilizations with intermit MWM and calcaneal distraction completed in seated and then with ankle drivers - held today d/t pt's pain level Gait Training (55827) Intervention amb (without boot or AD) 30'x2 laps, 150'x1, 40'x1, laps constant VC's, demo, education)-only performed gait in // bars this date Modalities Modalities Vasopneumatic Treatment Parameters 15 min on L on (R) ankle with elevation PT Treatment Times Therex Total Time 39 Modalities Total Time 15 Direct Treatment Time 54 Goals: Physical Therapy Ortho Goals: MOBILITY: Patient will be able to ambulate for 15 minutes in community without difficulty in 6 weeks. 10/23/2021 Still using scooter for majority of ambulation or FWW at home 11/15/2021 Pt able to ambulate with FWW for about 5-10 minutes MOBILITY: Patient will be able to ambulate with no AD and minimal deviations in 6 weeks. 10/23/2021 Pt had set back due to being out with COVID 11/15/21 Progressed to bilateral crutches this SELF CARE: Patient will be able to complete ADL's including bathing, dressing, and hair care without difficulty in 4 weeks. 10/23/2021 She still on the bench for showering, but hoping to get to standing soon IMPAIRMENT: Improve pain from 8/10 to 2/10 during activity in 6 weeks 10/23/2021 Pain ranges 5-8/10 at end of day, lower ranges at beginning of day. IMPAIRMENT: Improve MMT of Right Ankle PF from <3/5 to 4/5 in 6 weeks 10/23/2021 Still limited inAROM, but able to hold a fair contraction and complete seated heel raises (x 20) with no increase in pain. IMPAIRMENT: Improve AROM of R Ankle from -8 to 0 degrees in 3 weeks. 10/23/2021 - 2 with overpressue IMPAIRMENT: Improve AROM of Right Ankle DF from -8 degrees to 10 degrees in 6 weeks. 11/15/2021 Similar -8-10 from neutral OTHER: Patient will increase FOTO score 21 to at least 61 to show MDC/MCII and expected functional outcome in 6 weeks. 10/23/2021 42 this date. OTHER: Patient will be able to properly demonstrate independence with HEP in 4 weeks. 10/23/2021 MET 2-3 x week, for 6 weeks Extension of POC 2-3 x week for 4 weeks Reassess 12/13/2021 Patient Education: Quality of movement, Verbal HEP and Pain Management with patient demonstrated understanding and verbalized understanding. Post-Treatment Pain Scale: feeling much better than when I came in Assessment: Patient had an expected response to treatment. Pt timid throughout session but challenges herself as necessary. Focused on DF this session but limiting overpressure and manual techniques this date, to bring these back next week once pt's pain levels come down. Pt quite encouraged after getting off the Nustep with her motion. She states that it feels much better . Great relief with Game Ready. Pt left today feeling much relief and decrease in her sx's. Skilled Intervention demonstrated by modifications of treatment per exercise log including decreased load and assessment of patient's response and safety interventions per exercise log. Progress towards goals as expected. Plan for Next Visit: Treatment Visit with focus on improving functional mobility, strength, and stability in R ankle/foot. Monitor response. Progress as tolerable. To bring in her new shoes next session. Ni Van PTA STATE LICENSE, [id number] documented in this [id number] History of Present illness Narrative* Debra Anand PTA - 12/06/2021 3:15 PM EST [facility] OUTPATIENT REHABIL[facility]ATION DAILY TREATMENT NOTE Today's Date 12/06/2021 Patient Name: Azeb Hutchison Date of : 1965 Current Visit #: 17 Authorized Visits: 199 Case Name: R ankle ORIF History: Pre-Treatment Pain Scale: 1 Symptoms: mod stiffness Functional Diagnosis: 1. Ankle fracture, bimalleolar, closed, right, initial encounter Clinical Information: Subjective: Pt notes min increase in pain and sx after last treatment session and notes compliance with HEP daily. Pt notes still wearing boot at work due to unable to wear a shoe due to swelling. Ptnotes amb at home with and without shoe and or AD and reports still having difficulty with ankle ROM. Objective: AROM, and manual to begin, stretches, cont'd with gait trials, then progressed with modified mini lunges, step downs, modified heel taps, and lat up and over step up, all to improve ankle mobility, strength, stability, and endurance. Ended with gameready to (R) ankle elevated to decreasepain and sx. Treatments: Physical Therapy Exercise Log - 12/06/21 1518 OTHER Precautions/Contraindications IE Gloria Manrique [phone] Notes weightbearing from 10 to 100% of body weight over approximately 6 weeks of physical therapy in the boot and then wean out of the boot Vitals R ankle ORIF Therapeutic Exercise (33304) Intervention -- Parameters AROM PF/DF 10x3 EV/IN 10x3 (limited ROM with both) Parameters wedge gastoc/DF stretch 10 x5 (constant cuing to keep heel down and avoid knee hyperext) Intervention heel taps in parallel bars x10 on 4 inch, step downs 2 inch x 5, 4 inch x 10 in parallel bars Parameters GameReady at End, 36 deg elevated 10' Intervention lat up and over step ups 4 inch x 10 with UE A in parallel bars Parameters modified mini lunges x 10 each to improve ankle mobility (in parallel bars) Intervention Longsitting gastroc and soleus stretch with towel: 30 x 10 Parameters Toe curls and extensions x 20 Intervention lat amb at inth (BUNDLING MACHINE OPERATOR SBA) x5 laps without boot and with UE A Parameters mini squats 2x10 with VC's and demo for mechanics to improve ankle DF Intervention Nustep 5 min L2 with UE A and VC's to keep (R) heel down-NV to begin if needed Parameters HEP: ankle AROM PF/DF inver/Ever, LAQ, towel scrunches, SLR, SL abd Add more exercises? Yes Neuro Re-Ed (45746) Intervention -- Parameters Lateral weight shifts with slight bend in knees to prevent genu recurvatum x 2x20 Intervention kneeling on Airex ankle drivers with UE use with emphasis on keeping heel down (very limited motion) 10 x1 then with manual OP from therapist (MWM) 10 x15 Parameters -- Intervention stagger stance ( B) modified as needed with soft knee bend with rotational movement Parameters gait/step mechanics training with parallel bars working on step, heel strike, through topush of then retro return back x 15 with constant cuing, Tc, education, and demo all in parallel bars with UE A Intervention -- Manual Therapy ([id number]) Intervention Gentle PROM DF/PF x 20, gentle Inver/Ever x 10 Parameters Grade 2-3 posterior mobilizations with intermit MWM and calcaneal distraction completed in seated and then with ankle drivers 10 mins Gait Training (60203) Intervention amb (without boot or AD) 30'x2 laps, 150'x1, 40'x1, laps constant VC's, demo, education) Modalities Modalities Vasopneumatic Treatment Parameters 10 min on M on (R) ankle with elevation PT Treatment Times Therex Total Time 20 Neuro Re-Ed Total Time 15 Manual Therapy Total Time 10 Gait Training Total Time 10 Modalities Total Time 10 Direct Treatment Time 65 Total Treatment Time 66 Goals: Physical Therapy Ortho Goals: MOBILITY: Patient will be able to ambulate for 15 minutes in community without difficulty in 6 weeks. 10/23/2021 Still using scooter for majority of ambulation or FWW at home 11/15/2021 Pt able to ambulate with FWW for about 5-10 minutes MOBILITY: Patient will be able to ambulate with no AD and minimal deviations in 6 weeks. 10/23/2021 Pt had set back due to being out with COVID 11/15/21 Progressed to bilateral crutches this date SELF CARE: Patient will be able to complete ADL's including bathing, dressing, and hair care without difficulty in 4 weeks. 10/23/2021 She still on the bench for showering, but hoping to get to standing soon IMPAIRMENT: Improve pain from 8/10 to 2/10 during activity in 6 weeks 10/23/2021 Pain ranges 5-8/10 at end of day, lower ranges at beginning of day. IMPAIRMENT: Improve MMT of Right Ankle PF from <3/5 to 4/5 in 6 weeks 10/23/2021 Still limited inAROM, but able to hold a fair contraction and complete seated heel raises (x 20) with no increase in pain. IMPAIRMENT: Improve AROM of R Ankle from -8 to 0 degrees in 3 weeks. 10/23/2021 - 2 with overpressue IMPAIRMENT: Improve AROM of Right Ankle DF from -8 degrees to 10 degrees in 6 weeks. 11/15/2021 Similar -8-10 from neutral OTHER: Patient will increase FOTO score 21 to at least 61 to show MDC/MCII and expected functional outcome in 6 weeks. 10/23/2021 42 this date. OTHER: Patient will be able to properly demonstrate independence with HEP in 4 weeks. 10/23/2021 MET 2-3 x week, for 6 weeks Extension of POC 2-3 x week for 4 weeks Reassess 12/13/2021 Patient Education: Quality of movement, Verbal HEP, HEP Adherence, Diagnosis and recovery specific education, Pain Management, Adaptive/Assistive equipment and daily amb, gait mechanics, exercise mechanics, stretch mechancs, ankle mechanics, controlled mobility, rest breaks as needed, Vc's, demo, with patient demonstrated understanding and verbalized understanding. Post-Treatment Pain Scale: 4 Assessment: Patient had an expected response to treatment. Pt presented with mod plus ankle tension and decreased mobility to begin (as pt came from working in which was wearing boot all day), all which decrease slightly with ex's as per flow sheet but stillwith firm end feel with manual and lacks ankle mobility and ROM. Pt performed ex's with intermit increase in pain and sx throughout and required Vc's and education as above to complete with Fair minus return demo. Pt with improve wbing and gait tolerance without AD but shoe restricts heel strike due to not able to fully fit in footwear. Pt still with increased gait deviations and compensatory patterns with gait trials and presented with increased (R) ankle swelling which has improved from previous sessions and with vaso use. Skilled Intervention demonstrated by modifications of treatment per exercise log including increased load, increased rate, plane progressions, increased cueing, increased intensity, increased mobility, increased volume, assessment of patient's response and modalities as indicated and safety interventions per exercise log. Progress towards goals unexpected due to lack in ankle mobility, but pt still making progress each session and has presented with improved wbing tolerance . Plan for Next Visit: Monitor response to today's treatment session and continue to progress pt toward set goals in POC as tolerated. Pt to bring in new shoes to help improve support. Warm up, manual,stretches, gait trials, ankle mobility. Debra Anand PTA STATE LICENSE, [id number] documented in this [id number] History of Present illness Narrative* Ni Van PTA - 11/30/2021 3:15 PM EST [facility] OUTPATIENT REHABILITATION DAILY TREATMENT NOTE Today's Date 11/30/2021 Patient Name: Azeb Hutchison Date of : 1965 Current Visit #: 16 Authorized Visits: 199 Case Name: R ankle ORIF History: Pre-Treatment Pain Scale: 0 Symptoms: gradually improved Functional Diagnosis: 1. Ankle fracture, bimalleolar, closed, right, initial encounter Clinical Information: Subjective: Pt comes in with no pain. Ambulates into clinic using B crutches and is still wearing her boot. States that she is doing better with therapy. She continues to make progress. (Pt 20 minutes late to appt, apologetic.) Objective: Began with lateral ambulation and standing activity per log with focus on form/techniquethroughout. Pt performed gentle strengthening ex's per log to improve functional ROM, strength and stability in R ankle. Added driving simulation exercise per log with focus on extended holds and sudden braking. Performed mostly closed chain activity per log with focus on DF. Ended with manual posterior mobs with intermittent retrograde MA. Treatments: Physical Therapy Exercise Log - 11/30/21 9484 OTHER Precautions/Contraindications IE Gloria Manrique 3:37PM-4:05PM Notes weightbearing from 10 to 100% of body weight over approximately 6 weeks of physical therapy in the boot and then wean out of the boot Vitals R ankle ORIF Therapeutic Exercise (30597) Intervention Seated weight bearing in front 30 x 5 (without boot this date), move ankle back to increase DF DC to home Parameters AROM PF/DF 10x3 EV/IN 10x3 (limited ROM with both) Parameters GameReady at End, 36 deg elevated 10'-NT/time Parameters -- Intervention Longsitting gastroc and soleus stretch with towel: 30 x 8 each-NT/time Parameters Toe curls and extensions x 20-NT/time Parameters -- Intervention lat amb at plinth (BUNDLING MACHINE OPERATOR SBA) x5 laps without boot and with UE A Parameters mini squats NV Intervention Nustep 5 min L2 with UE A and VC's to keep (R) heel down-NT/time Parameters HEP: ankle AROM PF/DF inver/Ever, LAQ, towel scrunches, SLR, SL abd Add more exercises? Yes Neuro Re-Ed (69532) Intervention Tandem weights without boot donned to promote foot flat. in parallel bars 2x20 Parameters Lateral weight shifts with slight bend in knees to prevent genu recurvatum x 2x20 Intervention kneeling on Airex ankle drivers with UE use with emphasis on keeping heel down (very limited motion) 5 10x2 Parameters Posterior chain bows x 8-NT/time Intervention stagger stance ( B) modified as needed with soft knee bend with rotational movement Parameters gait/step mechanics training with parallel bars working on step, heel strike, through topush of then retro return back x 15 with constant cuing, Tc, education, and demo all in parallel bars with UE A-NT/time Intervention small wedge with yellow narinder disc press gas (mimic driving), blue narinder disc on floorfor brake 1 min ea x2 Manual Therapy (43258) Intervention Gentle PROM DF/PF x 20, gentle Inver/Ever x 10-NT/time Parameters Grade 2-3 posterior mobilizations with intermit MWM and calcaneal distraction completed in both supine and WB 11-30-21 performed post mobs with gentle retrograde MA 5min Gait Training (47156) Intervention amb (without boot) with bilat crutches 20-30'x4 laps, amb with single crutch x 20' x 1, gait training without AD x 25'x1 with MANAGER BILINGUAL (constant VC's, demo, education) NT/time Modalities Modalities Vasopneumatic Treatment Parameters 10 min on M in (R) ankle with elevation-NT/time PT Treatment Times Therex Total Time 23 Manual Therapy Total Time 5 Direct Treatment Time 28 Goals: Physical Therapy Ortho Goals: MOBILITY: Patient will be able to ambulate for 15 minutes in community without difficulty in 6 weeks. 10/23/2021 Still using scooter for majority of ambulation or FWW at home 11/15/2021 Pt able to ambulate with FWW for about 5-10 minutes MOBILITY: Patient will be able to ambulate with no AD and minimal deviations in 6 weeks. 10/23/2021 Pt had set back due to being out with COVID 11/15/21 Progressed to bilateral crutches this date SELF CARE: Patient will be able to complete ADL's including bathing, dressing, and hair care without difficulty in 4 weeks. 10/23/2021 She still on the bench for showering, but hoping to get to standing soon IMPAIRMENT: Improve pain from 8/10 to 2/10 during activity in 6 weeks 10/23/2021 Pain ranges 5-8/10 at end of day, lower ranges at beginning of day. IMPAIRMENT: Improve MMT of Right Ankle PF from <3/5 to 4/5 in 6 weeks 10/23/2021 Still limited inAROM, but able to hold a fair contraction and complete seated heel raises (x 20) with no increase in pain. IMPAIRMENT: Improve AROM of R Ankle from -8 to 0 degrees in 3 weeks. 10/23/2021 - 2 with overpressue IMPAIRMENT: Improve AROM of Right Ankle DF from -8 degrees to 10 degrees in 6 weeks. 11/15/2021 Similar -8-10 from neutral OTHER: Patient will increase FOTO score 21 to at least 61 to show MDC/MCII and expected functional outcome in 6 weeks. 10/23/2021 42 this date. OTHER: Patient will be able to properly demonstrate independence with HEP in 4 weeks. 10/23/2021 MET 2-3 x week, for 6 weeks Extension of POC 2-3 x week for 4 weeks Reassess 12/13/2021 Patient Education: Quality of movement, Verbal HEP and Pain Management with patient demonstrated understanding and verbalized understanding. Post-Treatment Pain Scale: 0 Assessment: Patient had an expected response to treatment. Pt questioning if she can drive yet (wanted to drive to [place]). PT-Gloria advised against it after having trialed ex's that simulate driving and pt struggling yet (plus the distance that she wanted to drive). Continues to make progress with DF. Challenged yet with getting edema. Great relief manual mobs and retrograde MA. Skilled Intervention demonstrated by modifications of treatment per exercise log including decreased load and safety interventions per exercise log. Progress towards goals as expected. Plan for Next Visit: Treatment Visit with focus on improving functional mobility, strength, and stability in R ankle. Monitor response. Progress as tolerable. [place] [employer] STATE LICENSE, [id number] documented in this [id number] History of Present illness Narrative* Sandy Manrique, PT - 11/27/2021 3:15 PM EST [facility]IENT REHABILITATION DAILY TREATMENT NOTE Today's Date 11/27/2021 Patient Name: Azeb Hutchison Date of : 1965 Current Visit #: 15 Authorized Visits: 199 Case Name: Mohsen ankle ORIF History: Pre-Treatment Pain Scale: 6 Symptoms: gradually improved Functional Diagnosis: 1. Ankle fracture, bimalleolar, closed, right, initial encounter Clinical Information: Subjective: Pt reports her main complaint at this point is the stiffness in her ankle. She has noticed her mobility has improved, but still frustrated with slow healing process. ObjectiveCompleted exercises per log. Treatments: Physical Therapy Exercise Log - 11/27/21 1546 OTHER Precautions/Contraindications IE Gloria Manrique 15:15-16:12 Notes weightbearing from 10 to 100% of body weight over approximately 6 weeks of physical therapy in the boot and then wean out of the boot Vitals R ankle ORIF Therapeutic Exercise ([id number]) Intervention Seated weight bearing in front 30 x 5 (without boot this date), move ankle back to increase DF DC to home Parameters AROM PF/DF 10x3 EV/IN 10x3 (limited ROM with both) Parameters GameReady at End, 36 deg elevated 10' Parameters Ankle drivers with airex and UE support 5 15x1 R then with OP from therapist 3-5 2x10 Intervention Longsitting gastroc and soleus stretch with towel: 30 x 8 each Parameters Toe curls and extensions x 20 Parameters Went over a lot of exercises verbally this date in this section to complete at home due to focus on manual and gait -- reviewed Intervention lat amb in parallel bars 5 laps without boot and with UE A Parameters mini squats NV Intervention Nustep 5 min L2 with UE A and VC's to keep (R) heel down Parameters HEP: ankle AROM PF/DF inver/Ever, LAQ, towel scrunches, SLR, SL abd Add more exercises? Yes Neuro Re-Ed (43331) Intervention Tandem weights without boot donned to promote foot flat. in parallel bars Parameters Lateral weight shifts with slight bend in knees to prevent genu recurvatum x 2x20 Intervention Standing ankle drivers with UE use with emphasis on keeping heel down (very limited motion) x 10-15, added 4 inch step this date Parameters Posterior chain bows x 8 Intervention stagger stance ( B) modified as needed with soft knee bend with rotational movement Parameters gait/step mechanics training with parallel bars working on step, heel strike, through topush of then retro return back x 15 with constant cuing, Tc, education, and demo all in parallel bars with UE A Manual Therapy (93149) Intervention Gentle PROM DF/PF x 20, gentle Inver/Ever x 10 Parameters Grade 2-3 posterior mobilizations with intermit MWM and calcaneal distraction 10 min completed in both supine and WB Gait Training (80896) Intervention amb (without boot) with bilat crutches 20-30'x4 laps, amb with single crutch x 20' x 1, gait training without AD x 25'x1 with MANAGER BILINGUAL (constant VC's, demo, education) NT Modalities Modalities Vasopneumatic Treatment Parameters 10 min on M in (R) ankle with elevation PT Treatment Times Therex Total Time 8 Neuro Re-Ed Total Time 10 Manual Therapy Total Time 12 Modalities Total Time 10 Direct Treatment Time 40 Total Treatment Time 45 Goals: Physical Therapy Ortho Goals: MOBILITY: Patient will be able to ambulate for 15 minutes in community without difficulty in 6 weeks. 10/23/2021 Still using scooter for majority of ambulation or FWW at home 11/15/2021 Pt able to ambulate with FWW for about 5-10 minutes MOBILITY: Patient will be able to ambulate with no AD and minimal deviations in 6 weeks. 10/23/2021 Pt had set back due to being out with COVID 11/15/21 Progressed to bilateral crutches this date SELF CARE: Patient will be able to complete ADL's including bathing, dressing, and hair care without difficulty in 4 weeks. 10/23/2021 She still on the bench for showering, but hoping to get to standing soon IMPAIRMENT: Improve pain from 8/10 to 2/10 during activity in 6 weeks 10/23/2021 Pain ranges 5-8/10 at end of day, lower ranges at beginning of day. IMPAIRMENT: Improve MMT of Right Ankle PF from <3/5 to 4/5 in 6 weeks 10/23/2021 Still limited inAROM, but able to hold a fair contraction and complete seated heel raises (x 20) with no increase in pain. IMPAIRMENT: Improve AROM of R Ankle from -8 to 0 degrees in 3 weeks. 10/23/2021 - 2 with overpressue IMPAIRMENT: Improve AROM of Right Ankle DF from -8 degrees to 10 degrees in 6 weeks. 11/15/2021 Similar -8-10 from neutral OTHER: Patient will increase FOTO score 21 to at least 61 to show MDC/MCII and expected functional outcome in 6 weeks. 10/23/2021 42 this date. OTHER: Patient will be able to properly demonstrate independence with HEP in 4 weeks. 10/23/2021 MET 2-3 x week, for 6 weeks Extension of POC 2-3 x week for 4 weeks Reassess 12/13/2021 Patient Education: Quality of movement, HEP Modification and HEP Adherence with patient demonstrated understanding. Post-Treatment Pain Scale: No increase in pain, just spasms in bottom of foot Assessment: Patient had an expected response to treatment. Pt is showing improvements in gait mechanics with less compensations. Biggest limitation continues to be mobility and will continue to progress per tolerance. Skilled Intervention demonstrated by modifications of treatment per exercise log including increased load, plane progressions, decreased volume and assessment of patient's response and safety interventions per exercise log. Progress towards goals as expected. Plan for Next Visit: Treatment Visit with focus on Continuation of POC. Trial heel lift in boot. Sandy Manrique, PT Licensed PT [id number] documented in this [id number] History of Present illness Narrative* Sandy Manrique, PT - 11/23/2021 3:15 PM EST [facility] OUTPATIENT REHABILITATION DAILY TREATMENT NOTE Today's Date 11/23/2021 Patient Name: Azeb Hutchison Date of : 1965 Current Visit #: 14 Authorized Visits: 199 Case Name: R ankle ORIF History: Pre-Treatment Pain Scale: 5 Symptoms: gradually improved Functional Diagnosis: 1. Ankle fracture, bimalleolar, closed, right, initial encounter Clinical Information: Subjective: Pt reported that she did well with progression of exercises. She has more soreness, butbelieves it was increase in work. ObjectiveCompleted exercises per log with adding multiplanar movement and WB to highly encourage functional mobility. Treatments: Physical Therapy Exercise Log - 11/23/21 1537 OTHER Precautions/Contraindications IE Gloria Manrique 15:15-16:12 Notes weightbearing from 10 to 100% of body weight over approximately 6 weeks of physical therapy in the boot and then wean out of the boot Vitals R ankle ORIF Therapeutic Exercise ([id number]) Intervention Seated weight bearing in front 30 x 5 (without boot this date), move ankle back to increase DF Parameters AROM PF/DF 10x3 EV/IN 10x3 (limited ROM with both) Parameters GameReady at End, 36 deg elevated 10' Parameters Ankle drivers with airex and UE support 5 15x1 R then with OP from therapist 3-5 2x10 Intervention Longsitting gastroc and soleus stretch with towel: 30 x 8 each Parameters Went over a lot of exercises verbally this date in this section to complete at home due to focus on manual and gait -- reviewed Intervention lat amb in parallel bars 5 laps without boot and with UE A Parameters mini squats NV Intervention Nustep 5 min L2 with UE A and VC's to keep (R) heel down Parameters HEP: ankle AROM PF/DF inver/Ever, LAQ, towel scrunches, SLR, SL abd Add more exercises? Yes Neuro Re-Ed (32904) Intervention Tandem weights without boot donned to promote foot flat. in parallel bars Parameters Lateral weight shifts with slight bend in knees to prevent genu recurvatum x 2x20 Intervention Standing ankle drivers with UE use with emphasis on keeping heel down (very limited motion) x 10-15 Parameters Posterior chain bows x 8 Intervention stagger stance ( B) modified as needed with soft knee bend with rotational movement Parameters gait/step mechanics training with parallel bars working on step, heel strike, through topush of then retro return back x 20 with constant cuing, Tc, education, and demo all in parallel bars with UE A Manual Therapy (34038) Intervention Gentle PROM DF/PF x 20, gentle Inver/Ever x 10 Parameters Grade 2-3 posterior mobilizations with intermit MWM and calcaneal distraction 13 min completed in both supine and WB Gait Training (11613) Intervention amb (without boot) with bilat crutches 20-30'x4 laps, amb with single crutch x 20' x 1, gait training without AD x 25'x1 with MANAGER BILINGUAL (constant VC's, demo, education) Modalities Modalities Vasopneumatic Treatment Parameters 10 min on M in (R) ankle with elevation PT Treatment Times Therex Total Time 10 Neuro Re-Ed Total Time 15 Manual Therapy Total Time 13 Gait Training Total Time 6 Modalities Total Time 10 Direct Treatment Time 54 Goals: Physical Therapy Ortho Goals: MOBILITY: Patient will be able to ambulate for 15 minutes in community without difficulty in 6 weeks. 10/23/2021 Still using scooter for majority of ambulation or FWW at home 11/15/2021 Pt able to ambulate with FWW for about 5-10 minutes MOBILITY: Patient will be able to ambulate with no AD and minimal deviations in 6 weeks. 10/23/2021 Pt had set back due to being out with COVID 11/15/21 Progressed to bilateral crutches this date SELF CARE: Patient will be able to complete ADL's including bathing, dressing, and hair care without difficulty in 4 weeks. 10/23/2021 She still on the bench for showering, but hoping to get to standing soon IMPAIRMENT: Improve pain from 8/10 to 2/10 during activity in 6 weeks 10/23/2021 Pain ranges 5-8/10 at end of day, lower ranges at beginning of day. IMPAIRMENT: Improve MMT of Right Ankle PF from <3/5 to 4/5 in 6 weeks 10/23/2021 Still limited inAROM, but able to hold a fair contraction and complete seated heel raises (x 20) with no increase in pain. IMPAIRMENT: Improve AROM of R Ankle from -8 to 0 degrees in 3 weeks. 10/23/2021 - 2 with overpressue IMPAIRMENT: Improve AROM of Right Ankle DF from -8 degrees to 10 degrees in 6 weeks. 11/15/2021 Similar -8-10 from neutral OTHER: Patient will increase FOTO score 21 to at least 61 to show MDC/MCII and expected functional outcome in 6 weeks. 10/23/2021 42 this date. OTHER: Patient will be able to properly demonstrate independence with HEP in 4 weeks. 10/23/2021 MET 2-3 x week, for 6 weeks Extension of POC 2-3 x week for 4 weeks Reassess 12/13/2021 Patient Education: Quality of movement and HEP Adherence with patient demonstrated understanding. Post-Treatment Pain Scale: 3 Assessment: Patient had an expected response to treatment. Pt still has firm end feel with limited AROM. However, has had good improvements in the last 2 visits with WB ability with minimal pain. Dueto significance of lack of motion and tissue tightness, completed mobility manual in WB with good tolerance. Added mult directions in weight shifting with good tolerance. Pt still has significant swelling and will follow-up with physician. Skilled Intervention demonstrated by modifications of treatment per exercise log including increased load, plane progressions, assessment of patient's response and modalities as indicated and safety interventions per exercise log. Progress towards goals unexpected due to minimal functional mobility, but continues to make gains. Plan for Next Visit: Treatment Visit with focus on continuation of POC Sandy Manrique, PT Licensed PT [id number] documented in this [id number] History of Present illness Narrative* Debra Anand, BUNDLING MACHINE OPERATOR - 11/21/2021 4:00 PM EST [facility] OUTPATIENT REHABIL[facility] DAILY TREATMENT NOTE Today's Date 11/21/2021 Patient Name: Azeb Hutchison Date of : 1965 Current Visit #: 13 Authorized Visits: 199 Case Name: R ankle ORIF History: Pre-Treatment Pain Scale: 4-5/10 pain in (R) ankle Symptoms: swelling and stiffness in ankle Functional Diagnosis: 1. Ankle fracture, bimalleolar, closed, right, initial encounter Clinical Information: Subjective: Pt notes no increase in pain and or sx after last treatment session and notes CP help manage pain and sx. Pt notes compliance with HEP. Pt reports trying to move ankle more and reports having some difficulty with gait for small distance at home without boot on. Pt notes using bilat and notes trialing single crutch (past few days) when going out and to work. Pt notes having a massage recent which helped with sx and swelling. Objective: Adjusted pt crutch height and Educated pt on scar mgmt and cross friction massage with barrier. Cont'd with stretches, ankle ROM, and manual to begin while introducing Nustep to improve ankle mobility and wbing, lat amb in bars, progressed wbing without boot and with bilat crutches and trial with MANAGER BILINGUAL, gait mechanics education and training, all to improve (R) foot/ankle/LE mobility, stability, strength, and endurance to progress pt toward set goals in POC. Gameready to (R) ankle to decrease pain and sx to end. Treatments: Physical Therapy Exercise Log - 11/21/21 1600 OTHER Precautions/Contraindications IE Gloria Manrique [phone] Notes weightbearing from 10 to 100% of body weight over approximately 6 weeks of physical therapy in the boot and then wean out of the boot Vitals R ankle ORIF Therapeutic Exercise (43712) Intervention Seated weight bearing in front 30 x 5 (without boot this date), move ankle back to increase DF Parameters AROM PF/DF 10x3 EV/IN 10x3 (limited ROM with both) Intervention -- Parameters -- Intervention -- Parameters GameReady at End, 36 deg elevated 10' Intervention -- Parameters Ankle drivers with airex and UE support 5 15x1 R then with OP from therapist 3-5 2x10 Intervention Longsitting gastroc and soleus stretch with towel: 30 x 8 each Parameters -- Intervention -- Parameters Went over a lot of exercises verbally this date in this section to complete at home due to focus on manual and gait -- reviewed Intervention lat amb in parallel bars 5 laps without boot and with UE A Parameters mini squats NV Intervention Nustep 5 min L2 with UE A and VC's to keep (R) heel down Parameters HEP: ankle AROM PF/DF inver/Ever, LAQ, towel scrunches, SLR, SL abd Add more exercises? Yes Neuro Re-Ed (66866) Intervention Tandem weights without boot donned to promote foot flat. in parallel bars Parameters Lateral weight shifts with slight bend in knees to prevent genu recurvatum x 2x20 Intervention Standing ankle drivers with UE use with emphasis on keeping heel down (very limited motion) x 10-15 Parameters -- Intervention -- Parameters gait/step mechanics training with parallel bars working on step, heel strike, through topush of then retro return back x 20 with constant cuing, Tc, education, and demo all in parallel bars with UE A Manual Therapy (12765) Intervention Gentle PROM DF/PF x 20, gentle Inver/Ever x 10 Parameters Grade 2-3 gentle posterior mobilizations with intermit MWM and calcaneal distraction 13 min Additional Exercises Add more exercises? -- Gait Training (44397) Intervention amb (without boot) with bilat crutches 20-30'x4 laps, amb with single crutch x 20' x 1, gait training without AD x 25'x1 with MANAGER BILINGUAL (constant VC's, demo, education) Modalities Modalities Vasopneumatic Treatment Parameters 10 min on low in (R) ankle with elevation PT Treatment Times Therex Total Time 12 Neuro Re-Ed Total Time 10 Manual Therapy Total Time 15 Gait Training Total Time 16 Modalities Total Time 10 Direct Treatment Time 63 Total Treatment Time 72 Goals: Physical Therapy Ortho Goals: MOBILITY: Patient will be able to ambulate for 15 minutes in community without difficulty in 6 weeks. 10/23/2021 Still using scooter for majority of ambulation or FWW at home 11/15/2021 Pt able to ambulate with FWW for about 5-10 minutes MOBILITY: Patient will be able to ambulate with no AD and minimal deviations in 6 weeks. 10/23/2021 Pt had set back due to being out with COVID 11/15/21 Progressed to bilateral crutches this date SELF CARE: Patient will be able to complete ADL's including bathing, dressing, and hair care without difficulty in 4 weeks. 10/23/2021 She still on the bench for showering, but hoping to get to standing soon IMPAIRMENT: Improve pain from 8/10 to 2/10 during activity in 6 weeks 10/23/2021 Pain ranges 5-8/10 at end of day, lower ranges at beginning of day. IMPAIRMENT: Improve MMT of Right Ankle PF from <3/5 to 4/5 in 6 weeks 10/23/2021 Still limited inAROM, but able to hold a fair contraction and complete seated heel raises (x 20) with no increase in pain. IMPAIRMENT: Improve AROM of R Ankle from -8 to 0 degrees in 3 weeks. 10/23/2021 - 2 with overpressue IMPAIRMENT: Improve AROM of Right Ankle DF from -8 degrees to 10 degrees in 6 weeks. 11/15/2021 Similar -8-10 from neutral OTHER: Patient will increase FOTO score 21 to at least 61 to show MDC/MCII and expected functional outcome in 6 weeks. 10/23/2021 42 this date. OTHER: Patient will be able to properly demonstrate independence with HEP in 4 weeks. 10/23/2021 MET 2-3 x week, for 6 weeks Extension of POC 2-3 x week for 4 weeks Reassess 12/13/2021 Patient Education: Quality of movement, Verbal HEP, HEP Adherence, Diagnosis and recovery specific education, Pain Management, Weight bearing precautions, Adaptive/Assistive equipment and gait mechanics, VC's, demo, rest breaks as needed, foot/ankle anatomy and mechanics, AD mgmt, scar mgmt, with patient demonstrated understanding and verbalized understanding. Post-Treatment Pain Scale: 1/10 pain in (R) ankle Assessment: Patient had an expected response to treatment. Pt required constant cuing and education as above to complete ex's as per flow sheet with Fair return demo. Pt presented with intermit increase in pain and sx in (R) ankle throughout but subsided with vaso use to end. Pt presented with better gait mechanics and controlled mobility with gait with bilat crutches vs single (will cont with bilat for now). Pt with mod increased swelling to begin whichdecrease with mobility throughout and vaso to end. Skilled Intervention demonstrated by modifications of treatment per exercise log including increased load, plane progressions, increased cueing, increased intensity, increased mobility, increased volume, assessment of patient's response and modalities as indicated and safety interventions per exercise log. Progress towards goals unexpected due to slow gains with increase in swelling and just now tolerating more WB. and pt made great progress this date with gait, mechanics, and wbing. Plan for Next Visit: Monitor response to today's treatment session and continue to progress pt toward set goals in POC as tolerated. Cont with gait training and wbing without boot and progress ankle manual mobs and mobility ex's with increased intensity. Pt to bring in socks and footwear NV to contwbing and gait progressions. Debra Anand PTA STATE LICENSE, [id number] documented in this [id number] History of Present illness Narrative* Radha Calvillo LPN - 11/20/2021 1:46 PM EST Patient requested crutches last week. Prescription sent to [facility] per patient request. DME called they don't have crutches. This nurse tried to call patient VM full. documented in this [id number] History of Present illness Narrative* Sandy Manrique, PT - 11/15/2021 3:15 PM EST [facility] OUTPATIENT REHABILITATION DAILY TREATMENT NOTE Today's Date 11/15/2021 Patient Name: Azeb Hutchison Date of : 1965 Current Visit #: 12 Authorized Visits: 199 Case Name: R ankle ORIF History: Pre-Treatment Pain Scale: 2 Symptoms: gradually improved Functional Diagnosis: 1. Ankle fracture, bimalleolar, closed, right, initial encounter Clinical Information: Subjective: Pt reports she well after last session. She is still getting significant swelling and difficulty getting her foot flat in boot. She is completing exercises at home multiple times a day. She is still using her scooter at work. Objective 28 cm mal to mal prior compared to 27.5 cm post vaso. Completed manual, then focused on WB this date. Treatments: Physical Therapy Exercise Log - 11/15/21 1515 OTHER Precautions/Contraindications IE Gloria Manrique 3:21PM-4:05PM Notes weightbearing from 10 to 100% of body weight over approximately 6 weeks of physical therapy in the boot and then wean out of the boot Vitals R ankle ORIF Therapeutic Exercise (87966) Intervention Seated weight bearing in front 30 x 5 (without boot this date), move ankle back to increase Parameters AROM PF/DF 10x3 EV/IN 10x3 (limited ROM with both) Intervention intrinsic strengthening towel scrunches 2 mins (R) Parameters SLR 2x10 bilat, SL abd 2x10 bilat R Intervention Isometrics PF/DF, Inv/Ev (light) 5 x 10 against BUNDLING MACHINE OPERATOR manual resist Parameters GameReady at End, 36 deg elevated 10' Intervention LAQ 5 2x10 R 3# Parameters Ankle drivers with airex and UE support 5 15x1 R Intervention Longsitting gastroc and soleus stretch with towel: 30 x 5 each Parameters narinder disc PF/DF 10x2 R Intervention Bridges: 2 x 10 Parameters Went over a lot of exercises verbally this date in this section to complete at home due to focus on manual and gait Parameters HEP: ankle AROM PF/DF inver/Ever, LAQ, towel scrunches, SLR, SL abd Add more exercises? Yes Neuro Re-Ed ([id number]) Intervention Tandem weights without boot donned to promote foot flat. Parameters Lateral weight shifts with slight bend in knees to prevent genu recurvatum x 1 minute x 2 Intervention Standing ankle drivers with UE use with emphasis on keeping heel down (very limited motion) Parameters Seated weight shifts with reaches to incorporate multi directional Intervention Gait: Crutch introduction due to being able to complete a full weight shift this date.Went over step to pattern then modified step through with two crutches 8 minutes Manual Therapy (76772) Intervention Gentle PROM DF/PF x 20, gentle Inver/Ever x 10 Parameters Grade 2-3 gentle posterior mobilizations and calcaneal distraction 10 min Additional Exercises Add more exercises? Yes Modalities Modalities Vasopneumatic Treatment Parameters 10 min on low in (R) ankle with elevation PT Treatment Times Neuro Re-Ed Total Time 10 Manual Therapy Total Time 10 Gait Training Total Time 15 Modalities Total Time 10 Direct Treatment Time 45 Goals: Physical Therapy Ortho Goals: MOBILITY: Patient will be able to ambulate for 15 minutes in community without difficulty in 6 weeks. 10/23/2021 Still using scooter for majority of ambulation or FWW at home 11/15/2021 Pt able to ambulate with FWW for about 5-10 minutes MOBILITY: Patient will be able to ambulate with no AD and minimal deviations in 6 weeks. 10/23/2021 Pt had set back due to being out with COVID 11/15/21 Progressed to bilateral crutches this date SELF CARE: Patient will be able to complete ADL's including bathing, dressing, and hair care without difficulty in 4 weeks. 10/23/2021 She still on the bench for showering, but hoping to get to standing soon IMPAIRMENT: Improve pain from 8/10 to 2/10 during activity in 6 weeks 10/23/2021 Pain ranges 5-8/10 at end of day, lower ranges at beginning of day. IMPAIRMENT: Improve MMT of Right Ankle PF from <3/5 to 4/5 in 6 weeks 10/23/2021 Still limited inAROM, but able to hold a fair contraction and complete seated heel raises (x 20) with no increase in pain. IMPAIRMENT: Improve AROM of R Ankle from -8 to 0 degrees in 3 weeks. 10/23/2021 - 2 with overpressue IMPAIRMENT: Improve AROM of Right Ankle DF from -8 degrees to 10 degrees in 6 weeks. 11/15/2021 Similar -8-10 from neutral OTHER: Patient will increase FOTO score 21 to at least 61 to show MDC/MCII and expected functional outcome in 6 weeks. 10/23/2021 42 this date. OTHER: Patient will be able to properly demonstrate independence with HEP in 4 weeks. 10/23/2021 MET 2-3 x week, for 6 weeks Extension of POC 2-3 x week for 4 weeks Reassess 12/13/2021 Patient Education: Quality of movement, HEP Modification, HEP Adherence and Adaptive/Assistive equipment with patient demonstrated understanding and verbalized understanding. Pt sent home with crutches to borrow to practice at home Post-Treatment Pain Scale: 1 Assessment: Patient had an expected response to treatment. Pt continues to make gains, but very slow. She is behind base on protocol and just now starting to tolerate WB enough to progress AD. Concerns with lack of mobility gains. Pt is reporting doing exercises frequently at home and has good recall of exercises. However, she only has about 10 degrees of active motion and still lacking DF about 10 degrees from neutral. Due to lacking functional DF, pt is presenting with more genu recurvatum tomake up for the motion to keep her heel flat. Went over with pt so she can start correcting at home. Pt is still getting pitting edema at the end of the day and is continuing to ice and elevate. Was able to progress pt to crutches with walking pattern this date with fair tolerance. Believe will help stretch with the weight, but will have to monitor swelling. Pt is making continual gains, but advised to follow-up with physician, and extend physical therapy for another 4 weeks. Skilled Intervention demonstrated by modifications of treatment per exercise log including increased load, plane progressions, increased mobility, increased volume, assessment of patient's response and modalities as indicated and safety interventions per exercise log. Progress towards goals unexpected due to slow gains with increase in swelling and just now tolerating more WB. However, we are getting gains and pt is becoming more functional and I. Plan for Next Visit: Treatment Visit with focus on continuation of POC \Sandy Manrique PT Licensed PT [id number] documented in this [id number] History of Present illness Narrative* Sandy Del Valleen, PT - 11/13/2021 3:15 PM EST [facility] OUTPATIENT REHABILITATION DAILY TREATMENT NOTE Today's Date 11/14/2021 Patient Name: Azeb Hutchison Date of : 1965 Current Visit #: 11 Authorized Visits: 199 Case Name: R ankle ORIF History: Pre-Treatment Pain Scale: 6 Symptoms: gradually worsened Functional Diagnosis: 1. Ankle fracture, bimalleolar, closed, right, initial encounter Clinical Information: Subjective: Pt is concerned because she had increase in pain over the weekend. She is still not able to WB well enough to not need her scooter. She has tried using the walker more and more at home but increases her pain. She has felt more and more that her heel doesn't want to touch down on her boot and wanting to feel like she is walking on her toe. Objective: Started with increasing WB and heel slide angle to promote more WB tolerance. Then completed manual for increase in mobility. Treatments: Physical Therapy Exercise Log - 11/13/21 1530 OTHER Precautions/Contraindications IE Gloria Manrique 3:21PM-4:05PM Notes weightbearing from 10 to 100% of body weight over approximately 6 weeks of physical therapy in the boot and then wean out of the boot Vitals R ankle ORIF Therapeutic Exercise (31433) Intervention Seated weight bearing in front 30 x 5 (without boot this ), move ankle back to increase Parameters AROM PF/DF 10x3 EV/IN 10x3 (limited ROM with both) Intervention intrinsic strengthening towel scrunches 2 mins (R) Parameters SLR 2x10 bilat, SL abd 2x10 bilat R Intervention Isometrics PF/DF, Inv/Ev (light) 5 x 10 against BUNDLING MACHINE OPERATOR manual resist Parameters GameReady at End, 36 deg elevated 10' Intervention LAQ 5 2x10 R 3# Parameters Ankle drivers with airex and UE support 5 15x1 R Intervention Longsitting gastroc and soleus stretch with towel: 30 x 5 each Parameters narinder disc PF/DF 10x2 R Intervention Bridges: 2 x 10 Parameters HEP: ankle AROM PF/DF inver/Ever, LAQ, towel scrunches, SLR, SL abd Neuro Re-Ed ([id number]) Intervention weight shifting in boot and with FWW or UE A on scale in standing x 30 (approx 30-40#),-NT/time Parameters Added modified tandem weight shifts with UE assist in parallel bars, anterior/posterior rocks-completed in seated due to pain Intervention 20 to 50 lbs 10 seconds intervals for endurance for 1 minute-NT/time Parameters Seated weight shifts with reaches to incorporate multi directional Manual Therapy ([id number]) Intervention Gentle PROM DF/PF x 20, gentle Inver/Ever x 10 Parameters Grade 2-3 gentle posterior mobilizations and calcaneal distraction 10 min Additional Exercises Add more exercises? Yes Modalities Modalities Vasopneumatic Treatment Parameters 10 min on low in (R) ankle with elevation PT Treatment Times Therex Total Time 10 Neuro Re-Ed Total Time 10 Manual Therapy Total Time 12 Modalities Total Time 10 Direct Treatment Time 42 Goals: Physical Therapy Ortho Goals: MOBILITY: Patient will be able to ambulate for 15 minutes in community without difficulty in 6 weeks. 10/23/2021 Still using scooter for majority of ambulation or FWW at home MOBILITY: Patient will be able to ambulate with no AD and minimal deviations in 6 weeks. 10/23/2021 Pt had set back due to being out with COVID SELF CARE: Patient will be able to complete ADL's including bathing, dressing, and hair care without difficulty in 4 weeks. 10/23/2021 She still on the bench for showering, but hoping to get to standing soon IMPAIRMENT: Improve pain from 8/10 to 2/10 during activity in 6 weeks 10/23/2021 Pain ranges 5-8/10 at end of day, lower ranges at beginning of day. IMPAIRMENT: Improve MMT of Right Ankle PF from <3/5 to 4/5 in 6 weeks 10/23/2021 Still limited inAROM, but able to hold a fair contraction and complete seated heel raises (x 20) with no increase in pain. IMPAIRMENT: Improve AROM of R Ankle from -8 to 0 degrees in 3 weeks. 10/23/2021 - 2 with overpressue IMPAIRMENT: Improve AROM of Right Ankle DF from -8 degrees to 10 degrees in 6 weeks. OTHER: Patient will increase FOTO score 21 to at least 61 to show MDC/MCII and expected functional outcome in 6 weeks. 10/23/2021 42 this date. OTHER: Patient will be able to properly demonstrate independence with HEP in 4 weeks. 10/23/2021 MET 2-3 x week, for 6 weeks Patient Education: Quality of movement, HEP Modification and HEP Adherence with patient demonstrated understanding and verbalized understanding. Post-Treatment Pain Scale: 4 Assessment: Patient had an unexpected response to treatment due to behind on protocol and poor tolerance to WB. Pt has firm end feel with PROM. Concerns due to healing guidelines. Next visit will take measurements and increase WB. Pt had pitting edema that improved with gentle mobility and vaso. Plan on contacting physician after progress note due to concerns. She is still making continual progress, just slow. Skilled Intervention demonstrated by modifications of treatment per exercise log including increased load, plane progressions, increased mobility and assessment of patient's response and safety interventions per exercise log. Progress towards goals slow continual progress. Concerns of lack of DF. Plan for Next Visit: Progress Note with focus on continueing POC, increasing WB, moving away from scooter use Sandy Manrique PT Licensed PT [id number] documented in this [id number] History of Present illness Narrative* Milena Yancey, DOT - 11/06/2021 3:15 PM EST [facility] OUTPATIENT REHABILITATION DAILY TREATMENT NOTE Today's Date 11/06/2021 Patient Name: Azeb Hutchison Date of : 1965 Current Visit #: 10 Authorized Visits: 199 Case Name: R ankle ORIF History: Pre-Treatment Pain Scale: sore and swollen Symptoms: gradually improved Functional Diagnosis: 1. Ankle fracture, bimalleolar, closed, right, initial encounter Clinical Information: Subjective: Pt states she is trying to use more wb with boot use and walker at home. Has tried stepto pattern with HR on stairs with good return demo. Is really trying to progress her wb at home butdoes note more pain/swelling the following day but nothing alarming. Pt tries more intermittent bouts of wb and activity vs staying up for long periods of time. Objective Included bridges and manual calcaneal distraction. Continue to progress wb tolerance as well as DF ROM. Pt has moderate edema in foot and ankle as she came directly from work-ended with vaso. Treatments: Physical Therapy Exercise Log - 11/06/21 1549 OTHER Precautions/Contraindications IE Gloria Manrique 3:21PM-4:12PM Notes weightbearing from 10 to 100% of body weight over approximately 6 weeks of physical therapy in the boot and then wean out of the boot Vitals R ankle ORIF Therapeutic Exercise ([id number]) Intervention Seated weight bearing in front 30 x 5 (without boot this date) watch wbing-NT/time Parameters AROM PF/DF 10x3 EV/IN 10x3 (limited ROM with both) Intervention intrinsic strengthening towel scrunches 2 mins (R) Parameters SLR 2x10 bilat, SL abd 2x10 bilat R Intervention Isometrics PF/DF, Inv/Ev (light) 5 x 10 against BUNDLING MACHINE OPERATOR manual resist Parameters GameReady at End, 36 deg elevated 10' Intervention LAQ 5 2x10 R 3# Parameters Ankle drivers with airex and UE support 5 10x1 R Intervention Longsitting gastroc and soleus stretch with towel: 20 x 5 each Parameters narinder disc PF/DF 10x2 R Intervention Bridges: 2 x 10 Parameters HEP: ankle AROM PF/DF inver/Ever, LAQ, towel scrunches, SLR, SL abd Neuro Re-Ed ([id number]) Intervention weight shifting in boot and with FWW or UE A on scale in standing x 30 (approx 30-40#),-NT/time Parameters Added modified tandem weight shifts with UE assist in parallel bars, anterior/posterior rocks-NT/time Intervention 20 to 50 lbs 10 seconds intervals for endurance for 1 minute-NT/time Manual Therapy ([id number]) Intervention Gentle PROM DF/PF x 20, gentle Inver/Ever x 10 Parameters Grade 2-3 gentle posterior mobilizations and calcaneal distraction 10 min Additional Exercises Add more exercises? Yes Modalities Modalities Vasopneumatic Treatment Parameters 10 min on low in (R) ankle with elevation PT Treatment Times Therex Total Time 40 Manual Therapy Total Time 10 Modalities Total Time 10 Direct Treatment Time 60 Total Treatment Time 60 Goals: Physical Therapy Ortho Goals: MOBILITY: Patient will be able to ambulate for 15 minutes in community without difficulty in 6 weeks. 10/23/2021 Still using scooter for majority of ambulation or FWW at home MOBILITY: Patient will be able to ambulate with no AD and minimal deviations in 6 weeks. 10/23/2021 Pt had set back due to being out with COVID SELF CARE: Patient will be able to complete ADL's including bathing, dressing, and hair care without difficulty in 4 weeks. 10/23/2021 She still on the bench for showering, but hoping to get to standing soon IMPAIRMENT: Improve pain from 8/10 to 2/10 during activity in 6 weeks 10/23/2021 Pain ranges 5-8/10 at end of day, lower ranges at beginning of day. IMPAIRMENT: Improve MMT of Right Ankle PF from <3/5 to 4/5 in 6 weeks 10/23/2021 Still limited inAROM, but able to hold a fair contraction and complete seated heel raises (x 20) with no increase in pain. IMPAIRMENT: Improve AROM of R Ankle from -8 to 0 degrees in 3 weeks. 10/23/2021 - 2 with overpressue IMPAIRMENT: Improve AROM of Right Ankle DF from -8 degrees to 10 degrees in 6 weeks. OTHER: Patient will increase FOTO score 21 to at least 61 to show MDC/MCII and expected functional outcome in 6 weeks. 10/23/2021 42 this date. OTHER: Patient will be able to properly demonstrate independence with HEP in 4 weeks. 10/23/2021 MET 2-3 x week, for 6 weeks Patient Education: Quality of movement, Verbal HEP and Diagnosis and recovery specific education with patient demonstrated understanding and verbalized understanding. Post-Treatment Pain Scale: sore but better Assessment: Patient had an expected response to treatment. Pt has great relief and improved mobility with manual mobilizations. Pt continues to have moderate swelling/edema and limited DF. Skilled Intervention demonstrated by modifications of treatment per exercise log including increased load, increased cueing, increased intensity, increased mobility, assessment of patient's response and modalities as indicated and safety interventions per exercise log. Progress towards goals as expected. Plan for Next Visit: Treatment Visit with focus on ROM, wb tolerance and sx control Milena Yancey PTA STATE LICENSE, [id number] documented in this [id number] History of Present illness Narrative* Ni Van PTA - 11/01/2021 3:15 PM EST [facility] OUTPATIENT REHABILITATION DAILY TREATMENT NOTE Today's Date 11/01/2021 Patient Name: Azeb Hutchison Date of : 1965 Current Visit #: 9 Authorized Visits: 199 Case Name: R ankle ORIF History: Pre-Treatment Pain Scale: 3 Symptoms: gradually improved Functional Diagnosis: 1. Ankle fracture, bimalleolar, closed, right, initial encounter Clinical Information: Subjective: Pt comes in with mild pain. She reports that her standing (at her sink) has improved. Standing is improving, can stand for 5 minutes before having to sit. She states that she stands with staggered stance sometimes as it seems to help alleviate pressure. She did have more swelling after last session, soreness too. Continues to wear boot and use scooter for ambulation. Objective: Began with long-sitting stretches per log with focus on form throughout. Pt performed gentle strengthening ex's per log to improve functional ROM, strength and stability in R ankle/foot. Increased reps where able and added Inv/Ev to isometrics keeping pressure light to further challenge strength and stability. Ended with Game Ready to reduce symptoms. Treatments: Physical Therapy Exercise Log - 11/01/21 1525 OTHER Precautions/Contraindications IE Gloria Manrique 3:21PM-4:12PM Notes weightbearing from 10 to 100% of body weight over approximately 6 weeks of physical therapy in the boot and then wean out of the boot Vitals R ankle ORIF Therapeutic Exercise ([id number]) Intervention Seated weight bearing in front 30 x 5 (without boot this ) watch wbing-NT/time Parameters AROM PF/DF 10x3 EV/IN 10x3 (limited ROM with both) Intervention intrinsic strengthening towel scrunches 2 mins (R) Parameters SLR 2x10 bilat, SL abd 2x10 bilat R Intervention Isometrics PF/DF, Inv/Ev (light) 5 x 10 against BUNDLING MACHINE OPERATOR manual resist Parameters GameReady at End, 36 deg elevated 10' Intervention LAQ 5 2x10 R Parameters Ankle drivers with airex and UE support 5 10x1 R Intervention Longsitting gastroc and soleus stretch with towel: 20 x 5 each Parameters narinder disc PF/DF 10x2 R Parameters HEP: ankle AROM PF/DF inver/Ever, LAQ, towel scrunches, SLR, SL abd Neuro Re-Ed ([id number]) Intervention weight shifting in boot and with FWW or UE A on scale in standing x 30 (approx 30-40#),-NT/time Parameters Added modified tandem weight shifts with UE assist in parallel bars, anterior/posterior rocks-NT/time Intervention 20 to 50 lbs 10 seconds intervals for endurance for 1 minute-NT/time Manual Therapy ([id number]) Intervention Gentle PROM DF/PF x 20, gentle Inver/Ever x 10-NT/time Parameters Grade 2-3 gentle posterior mobilizations 8 mins-NT/time Additional Exercises Add more exercises? Yes Modalities Modalities Vasopneumatic Treatment Parameters 10 min on low in (R) ankle with elevation PT Treatment Times Therex Total Time 41 Modalities Total Time 10 Direct Treatment Time 51 Goals: Physical Therapy Ortho Goals: MOBILITY: Patient will be able to ambulate for 15 minutes in community without difficulty in 6 weeks. 10/23/2021 Still using scooter for majority of ambulation or FWW at home MOBILITY: Patient will be able to ambulate with no AD and minimal deviations in 6 weeks. 10/23/2021 Pt had set back due to being out with COVID SELF CARE: Patient will be able to complete ADL's including bathing, dressing, and hair care without difficulty in 4 weeks. 10/23/2021 She still on the bench for showering, but hoping to get to standing soon IMPAIRMENT: Improve pain from 8/10 to 2/10 during activity in 6 weeks 10/23/2021 Pain ranges 5-8/10 at end of day, lower ranges at beginning of day. IMPAIRMENT: Improve MMT of Right Ankle PF from <3/5 to 4/5 in 6 weeks 10/23/2021 Still limited inAROM, but able to hold a fair contraction and complete seated heel raises (x 20) with no increase in pain. IMPAIRMENT: Improve AROM of R Ankle from -8 to 0 degrees in 3 weeks. 10/23/2021 - 2 with overpressue IMPAIRMENT: Improve AROM of Right Ankle DF from -8 degrees to 10 degrees in 6 weeks. OTHER: Patient will increase FOTO score 21 to at least 61 to show MDC/MCII and expected functional outcome in 6 weeks. 10/23/2021 42 this date. OTHER: Patient will be able to properly demonstrate independence with HEP in 4 weeks. 10/23/2021 MET 2-3 x week, for 6 weeks Patient Education: Quality of movement, Verbal HEP and Pain Management with patient demonstrated understanding and verbalized understanding. Post-Treatment Pain Scale: 3 Assessment: Patient had an expected response to treatment. Pt demos good understanding of program, needs reinforced with form/technique/pace. Pt has to steady her knee to perform Inv/Ev yet. Decreased ROM this date d/t swelling. Incisions healing well with minimal scabbing on medial incision (distal end). Great relief with Game Ready. Skilled Intervention demonstrated by modifications of treatment per exercise log including increased load and assessment of patient's response and safety interventions per exercise log. Progress towards goals as expected. Plan for Next Visit: Treatment Visit with focus on improving functional mobility, strength, and stability in R ankle/foot. Monitor response. Progress as tolerable. Ni Van PTA STATE LICENSE, [id number] documented in this [id number] History of Present illness Narrative* Cely Reyes, DOT - 10/26/2021 3:15 PM EST [facility] OUTPATIENT REHABILITATION DAILY TREATMENT NOTE Today's Date 10/26/2021 Patient Name: Azeb Hutchison Date of : 1965 Current Visit #: 7 Authorized Visits: 199 Case Name: R ankle ORIF History: Pre-Treatment Pain Scale: 7 Symptoms: gradually improved Functional Diagnosis: 1. Ankle fracture, bimalleolar, closed, right, initial encounter Clinical Information: Subjective: Pt reports she was on her feet a lot yesterday with the walker (approx 2 hours) and states she has had some increased pain since. She reports she didn't really have much pain after her last visit. Objective Focused on mobility and weightbearing tolerance today. Pt able to achieve approx 40# through scale before pain begins. Joint mobs and PROM performed for improved ROM. Concluded with GameReady for decreased swelling. Treatments: Physical Therapy Exercise Log - 10/26/21 1518 OTHER Precautions/Contraindications IE Gloria Manrique [phone] Notes weightbearing from 10 to 100% of body weight over approximately 6 weeks of physical therapy in the boot and then wean out of the boot Vitals R ankle ORIF Therapeutic Exercise (25898) Intervention Seated weight bearing in front 30 x 5 (without boot this date) watch wbing Parameters AROM PF/DF x 30, EV/IN x 30 (limited ROM with both) Intervention intrinsic strengthening towel scrunches 2 mins (R) Parameters SLR 2x10 bilat, SL abd 2x10 bilat Intervention Isometrics PF/DF 5 x 10 against BUNDLING MACHINE OPERATOR manual resist Parameters GameReady at End, 36 deg elevated 10' Intervention LAQ 5 2x10 bilat Intervention Longsitting gastroc and soleus stretch with towel: 30 x 5 each Parameters HEP: ankle AROM PF/DF inver/Ever, LAQ, towel scrunches, SLR, SL abd Neuro Re-Ed (88898) Intervention weight shifting in boot and with FWW or UE A on scale in standing x 30 (approx 30-40#) Parameters Added modified tandem weight shifts with UE assist in parallel bars, anterior/posterior rocks Manual Therapy (21076) Intervention Gentle PROM DF/PF x 20, gentle Inver/Ever x 10 Parameters Grade 2-3 gentle posterior mobilizations 8 mins Additional Exercises Add more exercises? Yes Modalities Modalities Vasopneumatic Treatment Parameters 10 min on low in (R) ankle with elevation PT Treatment Times Therex Total Time 27 Neuro Re-Ed Total Time 10 Manual Therapy Total Time 8 Direct Treatment Time 45 Total Treatment Time 45 Goals: Physical Therapy Ortho Goals: MOBILITY: Patient will be able to ambulate for 15 minutes in community without difficulty in 6 weeks. 10/23/2021 Still using scooter for majority of ambulation or FWW at home MOBILITY: Patient will be able to ambulate with no AD and minimal deviations in 6 weeks. 10/23/2021 Pt had set back due to being out with COVID SELF CARE: Patient will be able to complete ADL's including bathing, dressing, and hair care without difficulty in 4 weeks. 10/23/2021 She still on the bench for showering, but hoping to get to standing soon IMPAIRMENT: Improve pain from 8/10 to 2/10 during activity in 6 weeks 10/23/2021 Pain ranges 5-8/10 at end of day, lower ranges at beginning of day. IMPAIRMENT: Improve MMT of Right Ankle PF from <3/5 to 4/5 in 6 weeks 10/23/2021 Still limited inAROM, but able to hold a fair contraction and complete seated heel raises (x 20) with no increase in pain. IMPAIRMENT: Improve AROM of R Ankle from -8 to 0 degrees in 3 weeks. 10/23/2021 - 2 with overpressue IMPAIRMENT: Improve AROM of Right Ankle DF from -8 degrees to 10 degrees in 6 weeks. OTHER: Patient will increase FOTO score 21 to at least 61 to show MDC/MCII and expected functional outcome in 6 weeks. 10/23/2021 42 this date. OTHER: Patient will be able to properly demonstrate independence with HEP in 4 weeks. 10/23/2021 MET 2-3 x week, for 6 weeks Patient Education: Quality of movement, Verbal HEP and HEP Adherence with patient demonstrated understanding and verbalized understanding. Post-Treatment Pain Scale: sore but not much pain Assessment: Patient had an expected response to treatment. Increased swelling present this visit with some improvements after vaso. She reports increased pain this date with exercises compared to previous dates. Relief reported post session. Skilled Intervention demonstrated by modifications of treatment per exercise log including assessment of patient's response and modalities as indicated and safety interventions per exercise log. Progress towards goals as expected. Plan for Next Visit: Treatment Visit with focus on increased weightbearing and improved mobility Cely Reyes PTA STATE LICENSE, [id number] documented in this [id number] History of Present illness Narrative* Sandy Manrique, PT - 10/18/2021 3:15 PM EST [facility] DAILY TREATMENT NOTE Today's Date 10/18/2021 Patient Name: Azeb Hutchison Date of : 1965 Current Visit #: 5 Authorized Visits: 199 Case Name: R ankle ORIF History: Pre-Treatment Pain Scale: 6 Symptoms: gradually improved Functional Diagnosis: 1. Ankle fracture, bimalleolar, closed, right, initial encounter Clinical Information: Subjective: Pt reports she has pretty sore after last time. She had follow with physician and X-rays looking good. She is having quite a bit of swelling so discussed with physician and adding back more icing and activity modification. ObjectiveDecreased volume due to increase in pain after last session Treatments: Physical Therapy Exercise Log - 10/18/21 5518 OTHER Precautions/Contraindications IE Gloria Manrique 3:15 Notes weightbearing from 10 to 100% of body weight over approximately 6 weeks of physical therapy in the boot and then wean out of the boot Vitals R ankle ORIF Therapeutic Exercise (15394) Intervention Seated weight bearing in front 30 x 5 (without boot this date) watch wbing Parameters AROM PF/DF x 30, EV/IN x 30 (limited ROM with both) Intervention intrinsic strengthening towel scrunches 2 mins (R) Parameters SLR 2x10 bilat, SL abd 2x10 bilat Intervention Isometrics PF/DF 5 x 10 against BUNDLING MACHINE OPERATOR manual resist Parameters Measure swelling, game ready Intervention LAQ 5 2x10 bilat Parameters weight shifting in boot and with FWW or UE A on scale 25-30% in standing x 30 held todaydue to pain and pt request add back in next visit Intervention Longsitting gastroc and soleus stretch with towel: 30 x 5 each Parameters HEP: ankle AROM PF/DF inver/Ever, LAQ, towel scrunches, SLR, SL abd Manual Therapy (76102) Intervention Gentle PROM DF/PF x 20, gentle Inver/Ever x 10 Parameters Grade 1-2 gentle posterior mobilizations 8 mins Additional Exercises Add more exercises? Yes Modalities Modalities Vasopneumatic Treatment Parameters 10 min on low in (R) ankle with elevation Goals: Physical Therapy Ortho Goals: MOBILITY: Patient will be able to ambulate for 15 minutes in community without difficulty in 6 weeks. MOBILITY: Patient will be able to ambulate with no AD and minimal deviations in 6 weeks. SELF CARE: Patient will be able to complete ADL's including bathing, dressing, and hair care without difficulty in 4 weeks. IMPAIRMENT: Improve pain from 8/10 to 2/10 during activity in 6 weeks IMPAIRMENT: Improve MMT of Right Ankle PF from <3/5 to 4/5 in 6 weeks IMPAIRMENT: Improve AROM of R Ankle from -8 to 0 degrees in 3 weeks. IMPAIRMENT: Improve AROM of Right Ankle DF from -8 degrees to 10 degrees in 6 weeks. OTHER: Patient will increase FOTO score 21 to at least 61 to show MDC/MCII and expected functional outcome in 6 weeks. OTHER: Patient will be able to properly demonstrate independence with HEP in 4 weeks. 2-3 x week, for 6 weeks Patient Education: Quality of movement and HEP Adherence with patient demonstrated understanding and verbalized understanding. Post-Treatment Pain Scale: 5 prior to vaso Assessment: Patient had an expected response to treatment. Pt continues to lack significant DF and tightness in gastroc. Completed WB in sitting this date due to increase in pain. Continue to progress per tolerance. Significant swelling noted in dorsum of foot with pitting edema at beginning of session, which resolved to non pitting by end of session with movement and vaso. Skilled Intervention demonstrated by modifications of treatment per exercise log including increased mobility and assessment of patient's response and safety interventions per exercise log. Progress towards goals as expected. Plan for Next Visit: Treatment Visit with focus on continuation of POC Sandy Manrique PT Licensed PT [id number] documented in this [id number] History of Present illness Narrative* Kenya Davila, RN [facility] - 10/17/2021 3:15 PM EST POST OP NOTE [facility] [address] ([address]) [facility] [address] [facility] [id number] Procedure date:08/01/21 Azeb Hutchison is a 55 y.o. female seen in the office today for follow up 12 weeks post op following ORIF Right trimalleolar fracture by Dr. John. Incision:healing well, no significant drainage, no dehiscence, no significant erythema Pain:mild No signs of obvious infection. Neurovascular exam is grossly normal distally. Capillary refill <3 sec. No skin breakdown. Range of motion and strength 4/5. . Imaging: right ankle Last xray from 09/11/21show stable fixation of the trimalleolar ankle fracture. There is a plate and screws posteriorly at the distal fibula. There is also a plate and screws along the distal posterior tibia. There are 2 screws at the medial malleolus. The ankle mortise is intact. There is intervalcallus formation. No widening of the ankle mortise on these images. Restrictions;full duty, . Plan She can continue Therapy until she completes it entirely.As of yesterday she has had only 4 visits due to a setback with Covid. At next vist we will not need new xrays. @Return in about 4 weeks (around 11/14/2021). Kenya Davila CNP 10/17/2021 documented in this [id number] History of Present illness Narrative* Debra Anand, BUNDLING MACHINE OPERATOR - 09/20/2021 3:15 PM EST Images from the original note were not included. [facility] DAILY TREATMENT NOTE Today's Date 09/20/2021 Patient Name: Azeb Hutchison Date of : 1965 Current Visit #: 2 Authorized Visits: 60 Case Name: R ankle ORIF History: Pre-Treatment Pain Scale: 7/10 pain in (R) calf Symptoms: tightness in (R) calf/ankle Functional Diagnosis: 1. Ankle fracture, bimalleolar, closed, right, initial encounter Clinical Information: Subjective: Pt notes no increase in pain and or sx after last treatment session and reports compliance with HEP. Pt notes using ice for pain mgmt all day when home (educated given on parameters of cryo use at home.) Objective: Cont'd with ex's and manual as per flow sheet while introducing LE strengthening and mobility ex's as per flow sheet along with progressing HEP with written and pictured handout, all to improve LE strength, mobility, stability, and endurance. Gameready to decrease pain and sx in (R) foot/ankle to end. Treatments: Physical Therapy Exercise Log - 09/20/21 1520 OTHER Precautions/Contraindications IE Gloria Manrique [phone] Notes weightbearing from 10 to 100% of body weight over approximately 6 weeks of physical therapy in the boot and then wean out of the boot Vitals R ankle ORIF Therapeutic Exercise (64156) Intervention Seated weight bearing in front. with weight shifting 2x10 (without boot this ) watch wbing Parameters AROM PF/DF x 20, EV/IN x 20 (limited ROM with both) Intervention intrinsic strengthening towel scrunches 2 mins (R) Parameters SLR 2x10 bilat, SL abd 2x10 bilat Intervention Isometrics PF/DF 5 x 10 against BUNDLING MACHINE OPERATOR manual resist Parameters Measure swelling, game ready Intervention LAQ 5 2x10 bilat Parameters weight shifting in boot and with FWW or UE A on scale 10-20% in standing NV Parameters HEP: ankle AROM PF/DF inver/Ever, LAQ, towel scrunches, SLR, SL abd Manual Therapy (67117) Intervention Gentle PROM DF/PF x 20, gentle Inver/Ever x 10 Parameters Grade 1-2 gentle posterior mobilizations 5 mins Additional Exercises Add more exercises? Yes Modalities Modalities Vasopneumatic Treatment Parameters 10 min on low in (R) ankle with elevation PT Treatment Times Therex Total Time 40 Manual Therapy Total Time 10 Modalities Total Time 10 Direct Treatment Time 60 Total Treatment Time 65 Goals: Physical Therapy Ortho Goals: MOBILITY: Patient will be able to ambulate for 15 minutes in community without difficulty in 6 weeks. MOBILITY: Patient will be able to ambulate with no AD and minimal deviations in 6 weeks. SELF CARE: Patient will be able to complete ADL's including bathing, dressing, and hair care without difficulty in 4 weeks. IMPAIRMENT: Improve pain from 8/10 to 2/10 during activity in 6 weeks IMPAIRMENT: Improve MMT of Right Ankle PF from <3/5 to 4/5 in 6 weeks IMPAIRMENT: Improve AROM of R Ankle from -8 to 0 degrees in 3 weeks. IMPAIRMENT: Improve AROM of Right Ankle DF from -8 degrees to 10 degrees in 6 weeks. OTHER: Patient will increase FOTO score 21 to at least 61 to show MDC/MCII and expected functional outcome in 6 weeks. OTHER: Patient will be able to properly demonstrate independence with HEP in 4 weeks. 2-3 x week, for 6 weeks Patient Education: Quality of movement, Written HEP, Verbal HEP, HEP Adherence, Diagnosis and recovery specific education, Pain Management, Weight bearing precautions, Adaptive/Assistive equipment and VC's, demo, education, rest breaks, exercise/stretch mechanics, transfer/AD mgmt, cryo use and guidline for pain mgmt at home with patient demonstrated understanding, verbalized understanding and written information provided . Post-Treatment Pain Scale: 0 but with increased muscle soreness to end Assessment: Patient had an expected response to treatment. Pt presented with mod limited ROM in (R) ankle AROM, PROM, and was challenged with ROM mechanics and sequencing. Pt unable to attain (R) gastroc stretch due to hard/firm end feel with (R) ankle DF. Pt challenged with ex's as per flow sheet and required constant cuing to complete. Pt with good pain and sx relief with gameready. Skilled Intervention demonstrated by modifications of treatment per exercise log including increased load, increased rate, increased cueing, increased volume, assessment of patient's response and modalities as indicated and safety interventions per exercise log. Progress towards goals second visit. Plan for Next Visit: Monitor response to today's treatment session and continue to progress pt toward set goals in POC as tolerated. Introduce standing weight shifting NV with 10-20%. Review responseto HEP. Debra Anand PTA STATE LICENSE, [id number] documented in this [id number] History of Present illness Narrative* Sandy Manrique, PT - 09/18/2021 3:15 PM EST [facility] Evaluation Today's Date 09/18/2021 Patient Name: Azeb Hutchison Date of : 1965 Case Name: R ankle ORIF Functional Diagnosis: 1. Ankle fracture, bimalleolar, closed, right, initial encounter Clinical Information: Subjective History of Present Illness Surgery Date: 08/01/2021 Days Post-Op: 48 Subjective History: Pt presents to physical therapy post R ankle fx on 07/31 and had surgery ORIF 08/01/21 after falling down a marble stair case. She has been NWB for 6 weeks and now is ready to start putting weight through it. She has a follow-up in October with [employer]. She is in a walking boot this date. She is getting around on a kneeling scooter or FWW. She is able to work a few hours a day. She is having increase in R knee pain/fatigue. Increase in swelling. She is elevating and icing frequently. Sleep is difficult. N/T noted when swelling is bad. Pt described pitting edema and concerns. Will make sure to check. 2 miles a day prior to fx with dog. Goal to get back to doing Previous Imaging: X-ray (good alignment) Pain Scale: Pain location: ankle/foot Average Pain: 5/10 Pain at highest: 9/10 Home Environment: Current Home Environment: Current setup: Split level. Red Flags: None Comments: Barriers to Care: None Ankle/Foot Right Ankle/Foot Tenderness: Medial malleolus and Lateral malleolus Whole foot tenderness in general Range of Motion: Dorsiflexion Active: -8 Plantar Flexion Active: 20 Other Incision site: healing as expected Left Ankle/Foot Left Ankle/Foot WFL Significant R gastroc atrophy. Minimal activation of both TA and gastroc. Pt can't achieve flat foot in seated. Slight pitting edema between malleoli. Would return within 2 seconds. Good ability to move toes. Treatments: Physical Therapy Exercise Log - 09/18/21 1515 OTHER Precautions/Contraindications IE Gloria Manrique 15:15-16:00 Notes weightbearing from 10 to 100% of body weight over approximately 6 weeks of physical therapy in the boot and then wean out of the boot Vitals R ankle ORIF Therapeutic Exercise (29311) Intervention Seated weight bearing in front. with weight shifting Parameters AROM PF/DF x 20, EV/IN Intervention intrinsic strengthening Parameters SLR Intervention Isometrics Parameters Measure swelling, game ready Manual Therapy (67055) Intervention Gentle PROM DF/PF Parameters Grade 1-2 posterior mobilizations PT Treatment Times Therex Total Time 10 Direct Treatment Time 10 Total Treatment Time 45 Treatment Plan: Frequency of Visits: twice per week Duration: 6-8 weeks weeks Interventions: Therapeutic Exercise (60404), Neuromuscular Re-Education (02757), Manual Therapy (61170), Therapeutic/ Functional Activities (07978), Gait Training (91388) and Vasopneumatic (42451) Rehab Potential: good Goals: Physical Therapy Ortho Goals: MOBILITY: Patient will be able to ambulate for 15 minutes in community without difficulty in 6 weeks. MOBILITY: Patient will be able to ambulate with no AD and minimal deviations in 6 weeks. SELF CARE: Patient will be able to complete ADL's including bathing, dressing, and hair care without difficulty in 4 weeks. IMPAIRMENT: Improve pain from 8/10 to 2/10 during activity in 6 weeks IMPAIRMENT: Improve MMT of Right Ankle PF from <3/5 to 4/5 in 6 weeks IMPAIRMENT: Improve AROM of R Ankle from -8 to 0 degrees in 3 weeks. IMPAIRMENT: Improve AROM of Right Ankle DF from -8 degrees to 10 degrees in 6 weeks. OTHER: Patient will increase FOTO score 21 to at least 61 to show MDC/MCII and expected functional outcome in 6 weeks. OTHER: Patient will be able to properly demonstrate independence with HEP in 4 weeks. 2-3 x week, for 6 weeks Patient Education provided: Pt educated on healing guidelines, expectations per surgery. Clinical Impression: CPT Code 25084 Low 45996 Moderate 42991 High History 0 1-2 3+ Comorbidities: asthma, Personal factors: Post op Examination of body systems (elements of body structures & functions, activity limitations, and/or participation restrictions) 1-2 elements 3+ elements 4+ elements See below clinical impression Clinical Presentation Stable Evolving Unstable As evidenced by improving symptom level since surgical intervention Decision Making Low (FOTO >/= 69) Moderate (FOTO 34 - 68) High (FOTO </= 33) FOTO score= 21, expectations 61 Pt is a 55 y.o. female who presents to PT services s/p 6 weeks R ankle ORIF 08/01/21 . Upon assessment, pt has been found with the following impairments: decreased ROM, decreased strength, swelling, decreased stability and pain. The documented impairments result in the following functional limitations: ADLs/IADLs, regular PA/exercise, sporting activities, functional mobility, walking, stairs, performance of work/school related duties and sleep. The pt would benefit from skilled PT services focused on the above listed impairments and limitations in order to safely progress pt to their desired level of function. Pt to be discharged from OP PT services if/when goals are met, if they fail to make progress with conservative management in PT, if their level of progress plateaus, or if they do not maintain compliance with attendance or HEP. At this time, it is my clinical judgment that services are medically necessary. Sandy Manrique PT Licensed PT [id number] documented in this [id number] History of Present illness Narrative* Ximena John MD - 09/11/2021 11:15 AM EST Date of Surgery: 08/01/2021 Surgical Procedure: ORIF of trimalleolar ankle fracture Impression: Doing well 1. Ankle fracture, bimalleolar, closed, right, initial encounter Plan: I will enroll her in physical therapy and allow her to gradually increase her weightbearing from 10to 100% of body weight over approximately 6 weeks of physical therapy in the boot and then wean outof the boot. I discussed with this patient that I am leaving [facility]. Her next appointment will be with one of my partners. Follow Up: 6 weeks; x-rays will be needed at the next appt. 3 views right ankle weightbearing are simulated weightbearing Subjective: Azeb Hutchison returns to clinic today approximately 6 weeks out from her procedure. Azeb states that things are going well; pain is well controlled. Azeb denies problems with the incisions, denies signs of infection such as fevers, chills redness or warmth. She is currently nonweightbearing. Medications, non-medications, allergies, and smoking status were reviewed and updated as appropriate in EPIC. Tobacco Use: Medium Risk Smoking Tobacco Use: Former Smoker Smokeless Tobacco Use: Never Used Objective: PACU Vitals 09/11/21 1117 BP: 131/86 Pulse: 80 General Appearance: no acute distress, alert/oriented x3, appropriate mood and affect and looks stated age Gait: Not assessed Palpation: Mild tenderness palpation along the incisions ROM: Wiggles toes. Decreased ankle motion; compartments are supple Neurovascular Intact Skin Intact. Incision site healed, no signs of infection noted. Radiographs: Xrays from today's date were reviewed today in clinic and discussed with the patient. A formal readwill be perfomed by radiology. They were also interpreted by myself. My findings and impressions can be found below. Radiographs from today's date show stable fixation of the trimalleolar ankle fracture. There is a plate and screws posteriorly at the distal fibula. There is also a plate and screws along the distal posterior tibia. There are 2 screws at the medial malleolus. The ankle mortise is intact. There is interval callus formation. No widening of the ankle mortise on these images. CC: Rehana Hernandez MD documented in this [id number] History of Present illness Narrative* Ximena John MD - 08/14/2021 1:15 PM EST Date of Surgery: 08/01/2021 Surgical Procedure: ORIF of trimalleolar ankle fracture Impression: Doing well 1. Ankle fracture, bimalleolar, closed, right, initial encounter Plan: This patient will continue nonweightbearing. She was placed in a boot today. She will follow-up in 4 weeks at which point time new x-rays will be performed. If she has sufficient healing at that point time I will enroll her in physical therapy and allow her to gradually increase her weightbearing from 10 to 100% of body weight over approximately 6 weeks of physical therapy in the boot and then wean out of the boot. Follow Up: 4 weeks; x-rays will be needed at the next appt. 3 views right ankle weightbearing are simulated weightbearing Subjective: Azeb Hutchison returns to clinic today approximately 2 weeks out from her procedure. Azeb states that things are going well; pain is well controlled. Azeb denies problems with the incisions, denies signs of infection such as fevers, chills redness or warmth. She is currently nonweightbearing. Medications, non-medications, allergies, and smoking status were reviewed and updated as appropriate in EPIC. Tobacco Use: Medium Risk Smoking Tobacco Use: Former Smoker Smokeless Tobacco Use: Never Used Objective: PACU Vitals 08/14/21 1353 BP: (!) 150/85 Pulse: 67 Examination Performed: out of splint/cast General Appearance: no acute distress, alert/oriented x3, appropriate mood and affect and looks stated age Gait: Not assessed Palpation: Mild tenderness palpation along the incisions ROM: Wiggles toes. Decreased ankle motion; compartments are supple Neurovascular Intact Skin Intact. Incision site healed, no signs of infection noted. Suture Removal Note: Sutures were removed today by Britney Lazo LPN . She tolerated the procedure well. Steri strips were applied over the incision. Radiographs: Xrays from today's date were reviewed today in clinic and discussed with the patient. A formal readwill be perfomed by radiology. They were also interpreted by myself. My findings and impressions can be found below. Radiographs from today's date show stable fixation of the trimalleolar ankle fracture. There is a plate and screws posteriorly at the distal fibula. There is also a plate and screws along the distal posterior tibia. There are 2 screws at the medial malleolus. The ankle mortise is intact. No significant callus formation. No widening of the ankle mortise on these images. None of these images are performed in plantarflexion. CC: Rehana Hernandez MD documented in this [id number] History of Present illness Narrative* Britney Lazo LPN - 08/08/2021 2:36 PM EDT This nurse spoke with Genny at Dr. Hernandez office they are going to be seeing patient in office. Patient called them asking for pain medication. Genny stated she informed patient that she informed the patient she would have to get that from the surgeon patient proceeded to say we refused to fill a pain Rx. This nurse explained to Genny that the patient was asking Dr. John for muscle relaxant and I informed patient that she would have to reach out to her PCP. This nurse spoke to patient today and she requested Rx for ibuprofen. I informed the patient that Dr. John was in surgery today and tomorrow and not sure how soon I would get a response from her. This nurse ran an OARRS and patient was go od. This nurse put in a request for oxycodone and ibuprofen to [facility] [place]. John signed prescriptions. Genny stated she appreciated the clarification and she would call the patient to lether know about the medications being sent to the pharmacy. documented in this [id number] Hospital course Narrative* Yane Powers CNP - 08/03/2021 10:27 AM EDT [facility] [place] Azeb Hutchison Admitted: 07/31/2021 Discharge Date: 08/03/21 PCP Handoff Recommended Outpatient Testing Imaging TBD at outpatient orthopedic follow up BMP in 1 week to assess renal function with PCP Results Pending At Discharge None Clinical Summary Foster is a 55 y.o. female patient of Rehana Hernandez MD with no significant past medical history presented to the hospital after she tripped over steps and injured her right ankle. While in the ER patient had x-ray of her right ankle showing acute trimalleolar fracture of right ankle with disruption of ankle mortise. ER discussed with orthopedic Dr. John and patient is being admitted for further evaluation and PT/OT evaluation. Acute trimalleolar fracture of right ankle: Orthopedic surgery consulted, ORIF 08/01/21 Apply ice packs to the ankle, leg elevation. PT evaluated patient, recommending ongoing therapy OT evaluated patient, no need for further therapy Patient states she does not feel the need for ongoing therapy at home, states she will have help from her sister Knee scooter provided Pain Given IV Dilaudid and Toradol for breakthrough pain Continue oral Oxycodone CONNER: Unclear baseline, likely chronic Patient given IV hydration without improvement Recommending follow up BMP in 1 week If continues to worsen outpatient, may need outpatient referral to Nephrology Discharge Medications Discharge Medications New Medications Details enoxaparin 40 mg/0.4 mL Syrg Commonly known as: LOVENOX Start taking on: August 04, 2021 Inject 0.4 mL (40 mg total) under the skin daily Start: 08/04/21. Quantity: 12 mL oxyCODONE 5 MG immediate release tablet Commonly known as: ROXICODONE Take 1 (one) tablet (5 mg total) by mouth every 6 (six) hours as needed . Quantity: 12 tablet pantoprazole 40 MG tablet Commonly known as: PROTONIX Take 1 (one) tablet (40 mg total) by mouth daily . Quantity: 30 tablet senna 8.6 mg tablet Commonly known as: SENOKOT Take 1 (one) tablet (8.6 mg total) by mouth 2 (two) times a day as needed for constipation . Quantity: 10 tablet Medications To Continue Details gabapentin 100 MG capsule Commonly known as: NEURONTIN Take 100-300 mg by mouth 3 (three) times a day as needed . ORAL Take 1 tablet by mouth daily . Physician(s) Follow Up: Rehana Hernandez MD [address] [address] [facility] [address] Follow up 1-2 weeks Ximena John MD [address] [facility] [address] Follow up Condition at Discharge: Stable Disposition: Home On day of discharge, I performed a final bedside evaluation including a physical exam. I reviewed discharge recommendations with the patient in person. Patient instructions, including activity, were given to the patient/family at discharge. Time spent on discharge: > 30 minutes Completed by: Yane Powers on 08/03/21, 10:51 AM Associated attestation - Jarvis Short MD - 08/03/2021 3:46 PM EDT Patient seen, evaluated and managed by RN [facility] independently. I was not involved in the care of this patient, but was readily available for consultation if needed by RN [facility]. documented in this [id number] History of Present illness Narrative* Yessenia VegaDOT - 08/03/2021 9:14 AM EDT Physical Therapy PHYSICAL THERAPY TREATMENT NOTE Skilled Therapy Needs After Discharge Anticipate Resolution of Current Assessment Limitations Including: Pain, Mechanical Barriers, Social Support Are Skilled Therapy Services Needed After Discharge: Yes Intensity of Skilled Therapy: 2-3 days per week Anticipated Duration of Skilled Therapy: Duration 7 - 10 days DME Recommendation: Wheeled Walker (knee scooter ) DME Rationale: Patient's condition creates an increased risk of safety hazard without recommended equipment, Equipment required to maintain weight bearing status per physician orders Rehab Potential: Good Outcomes Measures Prior Function - Basic Mobility Raw Score: 24 Points Prior Function - Basic Mobility % Impaired: 0% AM-PAC Basic Mobility Raw Score: 18 Points AM-PAC Basic Mobility % Impaired: 40.47% Activity Tolerance Pt with good tolerance to activity with pain rated at 6/10 post tx. Therapy Precautions Orthotic Devices: Yes Lower Extremity: Right (cast ) Weight Bearing Status: X RLE: Non Wt bearing General Rehab Precautions: Fall risk Released to nursing: assist x 1 with ww Bed Mobility Supine to Sit: Head of bed elevated, Supervision Sit to Supine: Supervision Skilled Intervention Provided: monitoring patient response with activity, verbal cues For: UE management, UE positioning Resulting in: improved functional independence Transfers Sit to Stand: Stand by assist Skilled Intervention Provided: patient education, monitoring patient response with activity For: LE positioning, UE management, UE positioning Resulting in: improved activity tolerance, improved functional independence, improved safety Car Transfers: Stand by assist Toilet Transfers: Stand by assist Skilled Intervention Provided: verbal cues, monitoring patient response with activity, patient education For: UE management, UE positioning, LE positioning, controlled descent, safety during functional tasks Resulting in: improved functional independence, improved performance, improved safety Pt educated on and given demonstration for transfer into car with running board and without. Pt then completed both ways with sba. Pt with 1 lob noted whil backing to car with ww. Pt educated on slowmovements to improve safety. Gait/Locomotion Gait Assistance: Supervision Assistive Device: (knee scooter) Distance: 150 Feet Weight Bearing Status: able to maintain Stair Management Technique: no rails, backwards, forwards, wheeled walker Stair Management Assistance: Contact guard assist, Stand by assist Number of Stairs: 1 Skilled Intervention Provided: verbal cues, monitoring patient response with activity, provided step by step instructions, patient education For: device management and safe use of device, device adjustment fit to patient, stairs sequence/technique, UE management, UE positioning, LE management, LE positioning Resulting in: improved performance, improved safety, improved functional independence Pt reports discharging to sisters with 1 step. Pt educated on and given demonstration for use of wwto perform backward up step and forward down. Pt practiced 3 times with less assist on each attempt. Pt voicing improved comfort. Additional Treatment Details Call placed to DME and then nsg in regard to knee scooter. Nursing currently working on Obtaining order to fax to [place] [facility]. Home Living Obtained Home Living and PLOF info from: Patient Lives With: Other (Comment) (Sister) Type of Home: House Home Layout: One level Steps to enter home: Yes Rails to enter home: None Number of stairs to enter home: 1 Bathroom Shower/Tub: Walk-in shower, Tub/shower unit Bathroom Toilet: Standard Bathroom Accessibility: Accessible via walker Additional Objective Details - Home Living: Above information is her sister's house where she will be staying for 2 weeks. Her sister works 2nd shift and her mother will also be assisting when sisteris away. 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 This note stands as the current Discharge Summary upon patient discharge from the hospital or completion of Physical Therapy Plan of Care. * Nara Sykes RN - 08/03/2021 5:40 AM EDT Refused to have I.V site changed No I m going home today * Vanessa Kiran CNP - 08/02/2021 10:48 AM EDT [facility] [place] Assessment and Plan Foster is a 55 y.o. female patient of Rehana Hernandez MD with no significant past medical history presented to the hospital after she tripped over steps and injured her right ankle. While in the ER patient had x-ray of her right ankle showing acute trimalleolar fracture of right ankle with disruption of ankle mortise. ER discussed with orthopedic Dr. John and patient is being admitted for further evaluation and PT/OT evaluation. Acute trimalleolar fracture of right ankle: Schedule for surgery today at [address] John Symptomatic management for pain or nausea. Apply ice packs to the ankle, leg elevation. Further management per orthopedic. Appreciate orthopedic recommendations. Started patient on scheduled Tylenol . Pain Required on dose of Dilaudid this am for operative pain CONNER: 1.3 creatinine today Unclear baseline, continue patient on gentle IV fluid hydration Family Contact Information: Code Status: Full Code Quality Measures DVT Prophylaxis: - enoxaparin (LOVENOX) syringe 40 mg Enriquez Catheter: none Disposition Discharge Location: home Estimated Discharge Date: possible tomorrow Outpatient Testing: none Subjective Pt is tearful this morning from severe pain; no other complaints; toes pink and warm to right foot Review of Systems All systems have been reviewed and are negative except as noted in HPI or below Objective BP 120/73 (Patient Position: Lying) Pulse 75 Temp 97.6 F (36.4 C) (Oral) Resp 14 Ht 5' 3 Wt 69.4 kg (153 lb) SpO2 99% No Comment: Postmenopausal BMI 27.10 kg/m Physical Examination General Appearance: alert; well appearing; in moderate acute distress HEENT: Head- normocephalic; Eyes- EOMI, sclera anicteric; Ears- hearing intact; Nose- no nasal discharge; Throat- mucous membranes moist Cardiovascular: regular rate and rhythm; normal S1, S2; no murmurs, rubs, clicks or gallops; no peripheral edema Respiratory: lungs clear to auscultation; without wheezes, rales or rhonchi; on room air Abdomen: soft, non-tender, non-distended; positive bowel sounds Neurological: oriented x 3; normal speech; no focal findings or movement disorder noted Musculoskeletal: no significant deformity or tenderness to palpation Skin: normal coloration; no obvious rashes, lesions or skin breakdown; cast to right lower leg Psych: normal mood and affect; tearful Results/Medications Reviewed 07/31/2021 10:48 AM Laboratory, Radiology, Medications and Transcriptions * Vanessa Kiran CNP - 08/01/2021 3:09 PM EDT [facility] [place] Assessment and Plan Foster is a 55 y.o. female patient of Rehana Hernandez MD with no significant past medical history presented to the hospital after she tripped over steps and injured her right ankle. While in the ER patient had x-ray of her right ankle showing acute trimalleolar fracture of right ankle with disruption of ankle mortise. ER discussed with orthopedic Dr. John and patient is being admitted for further evaluation and PT/OT evaluation. Acute trimalleolar fracture of right ankle: Schedule for surgery today at [address] John Symptomatic management for pain or nausea. Apply ice packs to the ankle, leg elevation. Further management per orthopedic. Appreciate orthopedic recommendations. Started patient on scheduled Tylenol . CONNER: 1.4 creatinine today Unclear baseline, continue patient on gentle IV fluid hydration Family Contact Information: Code Status: Full Code Quality Measures DVT Prophylaxis: Enriquez Catheter: none Disposition Discharge Location: home Estimated Discharge Date: uncertain Outpatient Testing: none thus far Subjective No complaints Review of Systems All systems have been reviewed and are negative except as noted in HPI or below Objective BP 117/69 Pulse 68 Temp 97.3 F (36.3 C) (Infrared) Resp 16 Ht 5' 3 Wt 69.4 kg (153 lb) SpO2 100% No Comment: Postmenopausal BMI 27.10 kg/m Physical Examination General Appearance: alert; well appearing; in no acute distress HEENT: Head- normocephalic; Eyes- EOMI, sclera anicteric; Ears- hearing intact; Nose- no nasal discharge; Throat- mucous membranes moist Cardiovascular: regular rate and rhythm; normal S1, S2; no murmurs, rubs, clicks or gallops; no peripheral edema Respiratory: lungs clear to auscultation; without wheezes, rales or rhonchi; on room air Abdomen: soft, non-tender, non-distended; positive bowel sounds Neurological: oriented x 3; normal speech; no focal findings or movement disorder noted Musculoskeletal: no significant deformity or tenderness to palpation Skin: normal coloration; no obvious rashes, lesions or skin breakdown Psych: normal mood and affect Jose soft cast to right lower leg and foot ; toes are warm and pink Results/Medications Reviewed 07/31/2021 3:09 PM Laboratory, Radiology, Medications and Transcriptions documented in this [id number] Miscellaneous Notes* Plan of Care - Nara Sykes RN - 08/02/2021 8:06 PM EDT Problem: Actual or potential alteration in health Goal: Absence of healthcare acquired conditions Outcome: Not Met Goal: Knowledge of Interdisciplinary Plan of Care Outcome: Not Met Problem: Actual or potential alteration in health Goal: Absence of healthcare acquired conditions Outcome: Not Met Problem: Actual or potential alteration in health Goal: Knowledge of Interdisciplinary Plan of Care Outcome: Not Met Problem: Pain Goal: Manage acute pain Outcome: Not Met Goal: Reduced pain sensation Outcome: Not Met Goal: Achievement of comfort function goal Outcome: Not Met Problem: Pain Goal: Manage acute pain Outcome: Not Met Problem: Pain Goal: Reduced pain sensation Outcome: Not Met Problem: Pain Goal: Achievement of comfort function goal Outcome: Not Met Problem: Falls, Risk of Goal: Absence of falls Outcome: Not Met Problem: Falls, Risk of Goal: Absence of falls Outcome: Not Met Problem: Plan for Discharge Goal: Knowledge of discharge plan and instructions Outcome: Not Met Problem: Plan for Discharge Goal: Knowledge of discharge plan and instructions Outcome: Not Met Problem: Venous Thromboembolism, Risk of Goal: Absence of venous thromboembolism Outcome: Not Met Problem: Venous Thromboembolism, Risk of Goal: Absence of venous thromboembolism Outcome: Not Met Problem: Urinary Retention Goal: Urinary elimination within specified parameters Outcome: Not Met Problem: Urinary Retention Goal: Urinary elimination within specified parameters Outcome: Not Met Problem: Breathing Pattern - Ineffective Goal: Effective breathing pattern Outcome: Not Met Problem: Breathing Pattern - Ineffective Goal: Effective breathing pattern Outcome: Not Met Problem: Bowel Function - Altered Goal: Bowel function within specified parameters Outcome: Not Met Problem: Bowel Function - Altered Goal: Bowel function within specified parameters Outcome: Not Met * Plan of Care - Kylie Malhotra RN - 08/02/2021 7:03 PM EDT Problem: Actual or potential alteration in health Goal: Absence of healthcare acquired conditions Outcome: Partially Met Note: Vital signs are stable. Monitoring labs. Goal: Knowledge of Interdisciplinary Plan of Care Outcome: Partially Met Problem: Pain Goal: Manage acute pain Outcome: Partially Met Note: Medication is available as needed upon request for pain. Goal: Reduced pain sensation Outcome: Partially Met Goal: Achievement of comfort function goal Outcome: Partially Met Problem: Falls, Risk of Goal: Absence of falls Outcome: Partially Met Note: Bed alarm on for safety. Call light within reach if needing further assistance. * Quick Note - Kylie Malhotra RN - 08/02/2021 10:50 AM EDT Pt is still having 10/10 pain with no improvement, notified Dr. John. Was given verbal order to give an additional 15mg of Toradol and give an additional oxycodone and have this order for toradol increase to 30mg q6 prn. Will continue to monitor pain. * Plan of Care - Edie Gil RN - 08/02/2021 5:15 AM EDT Problem: Falls, Risk of Goal: Absence of falls Outcome: Partially Met Note: Fall precautions in place: personal items & call light within reach, hourly rounding and frequent toileting offered. Problem: Pain Goal: Manage acute pain Outcome: Partially Met Note: Oxy IR q4hr and Tylenol q6hr as ordered to manage acute pain needs. Problem: Breathing Pattern - Ineffective Goal: Effective breathing pattern Outcome: Partially Met Note: Incentive spirometry and cough/deep breathing encouraged every hour while awake. Problem: Urinary Retention Goal: Urinary elimination within specified parameters Outcome: Partially Met Note: Patient has had consistent urine output during shift. POC continued. * Plan of Care - Jacki Morton RN - 08/01/2021 8:13 PM EDT Problem: Actual or potential alteration in health Goal: Knowledge of Interdisciplinary Plan of Care Outcome: Partially Met Note: POC continued Problem: Pain Goal: Manage acute pain Outcome: Partially Met Note: Oxycodone IR prescribed for pain relief of right ankle. Problem: Falls, Risk of Goal: Absence of falls Outcome: Partially Met Note: Fall precautions in place. Non-skid socks on feet. Fall risk band applied. Problem: Venous Thromboembolism, Risk of Goal: Absence of venous thromboembolism Outcome: Partially Met Note: Lovenox prescribed for DVT prevention POC continued * Op Note - Ximena John MD - 08/01/2021 12:54 PM EDT DATE OF PROCEDURE: 08/01/2021 PREOPERATIVE DIAGNOSIS: Right trimalleolar ankle fracture. POSTOPERATIVE DIAGNOSIS: Right trimalleolar ankle fracture. PROCEDURE PERFORMED: ORIF of trimalleolar ankle fracture SURGEON: Ximena John M.D. IMPLANTS USED: 1. Synthes small fragment set. ANESTHESIA: General. NEEDLE AND SPONGE COUNT: Correct. COMPLICATIONS: None. ESTIMATED BLOOD LOSS: Minimal. SPECIMENS: None. DRAINS: None. CONDITION: Stable and extubated to PACU. INDICATION FOR PROCEDURE: The patient is a 55 y.o. female who sustained a Right ankle fracture. Shehad immediate pain and inability to weightbear, and was brought to the Emergency Department. She was reduced and placed into a splint. She was seen by me prior to her surgery. The soft tissues on HerRight ankle were evaluated prior to the surgery and the swelling had decreased to the point where it was amenable to surgery. The surgery was discussed with the patient and medical clearance was performed. Indications, risks and benefits were discussed. All questions were answered. Treatment options were reviewed. No guarantees were made or implied. DESCRIPTION OF PROCEDURE: The patient was identified in the preoperative holding area as Azeb Hutchison and this was confirmed with the Her. The operative site was identified and confirmed with the patient. It was marked by myself. She was administered a popliteal and saphenous block prior to coming back to the operative suite. The patient was then brought to the operative suite and a timeout was performed indicating correct patient, correct site, correct position and correct procedure and all implants were available in theroom. Allergies were reviewed and antibiotics were infused prior to the start of the case and within one-half hour of incision. The patient was then placed on the operating table in the prone position with a bump under her Right hip. General anesthesia was used. The Right lower extremity was prepped and draped in the usual sterile fashion. Next an incision was made at the posterior lateral aspect of the ankle over the peroneal tendons. The peroneal tendons were retracted laterally. Dissection was carried down to the posterior lateral tibia. The fracture was identified. The fracture was reduced. A 5 hole Synthes one third tubular plate was placed after being appropriately bent at the posterior distal tibia. Appropriate number and size of nonlocking screws were placed in antiglide fashion along this posterior malleolar fragment. The peroneal tendons were then retracted medially. The posterior aspect of the distal fibula was identified. The fracture was also identified. It was curetted of hematoma and other contents. A pointed reduction clamp was used to reduce the distal fibula. This was then held in place with a K wire. Next a 7 hole Synthes one third tubular plate was placed along the posterior aspect of the distal fibula. Appropriate size and number of locking and nonlocking screws were placed. This led to excellentreduction of the fibula fracture. Both of these fractures after fixation were visualized on C arm. Excellent length and position of hardware and reduction of the fractures was confirmed. Finally an incision was made straight medial over the medial malleolus. Dissection was carried downthrough the soft tissues. The bone was identified. The fracture was identified. The fracture was reduced. 2 guidewires for the 4.0 cannulated partially threaded cancellous screws were placed across the fracture. These were visualized on C arm. They were then overdrilled with a cannulated drill. Finally two 4.0 x 40 mm partially threaded cancellous screws were placed in these pilot can router holes. C-arm was used to confirm reduction of the fracture and appropriate placement of hardware. The syndesmosis was then tested. The syndesmosis was intact. Final xray films were taken and the fracture was confirmed to be anatomically aligned with adquate position, placement, and length of hardware. All wounds were copiously irrigated and excellent hemostasis was obtained. 1 g of Achromycin was placed in the wounds. 2-0 Vicryl was used to close the deep tissues followed by 3-0 Vicryl in the subcutaneous tissues and 3-0 nylons in the skin. A sterile dressing was applied. The patient was then placed in a short leg splint. All counts were correct at the end of the case and there were no complications with the procedure. The patient awoke stably and was transferred to the postoperative holding area. Ximena John * Plan of Care - Dang Leon RN - 08/01/2021 3:06 AM EDT Problem: Actual or potential alteration in health Goal: Absence of healthcare acquired conditions Outcome: Partially Met Goal: Knowledge of Interdisciplinary Plan of Care Outcome: Partially Met Problem: Pain Goal: Manage acute pain Outcome: Partially Met Note: NORCO and dilaudid ordered PRN for pain. Goal: Manage chronic pain Outcome: Partially Met Goal: Reduced pain sensation Outcome: Partially Met Goal: Achievement of comfort function goal Outcome: Partially Met Problem: Falls, Risk of Goal: Absence of falls Outcome: Partially Met Note: Fall precautions in place. Bed in lowest position. Call light and bedside table in reach. Plan of care reviewed. * ED Attestation Note - Cristian Ely MD - 08/01/2021 2:25 AM EDT ED Attestation: I was personally available for consult in the emergency department. I have reviewedthe chart and agree with the documentation as recorded by the MIREYA (Advanced Practice Provider), including the assessment, treatment plan, and disposition documented in this [id number] Consult note* Ana Kwong OT - 08/02/2021 1:34 PM EDT Occupational Therapy OCCUPATIONAL THERAPY EVALUATION AND TREATMENT NOTE Dx: Dx: s/p ORIF Right ankle 08/01 Patient stated Dr. John wants her to use a knee scooter all of the time and Dr. John has already ordered it per pt OCCUPATIONAL THERAPY EVALUATION Skilled Therapy Needs After Discharge Anticipate Resolution of Current Assessment Limitations Including: Pain, Mechanical Barriers, Social Support Are Skilled Therapy Services Needed After Discharge: No DME Recommendation: Tub seat, Elevated toilet seat (Phlebotomy Specialist) DME Rationale: Patient's condition creates an increased risk of safety hazard without recommended equipment, Functional reach deficit/ post surgical precaution adherence/ limitations of body habitus Rehab Potential: Excellent Outcomes Measures Prior Function Daily Activity Raw Score: 24 Prior Function Daily Activity % Impaired: 0% AM-PAC Daily Activity Raw Score: 21 AM-PAC Daily Activity % Impaired: 32.79% Occupational Therapy Assessment The patient's current functional participation deficits are LE dressing, bathing, toileting, home management, meal preparation, job duties, functional mobility, driving. This reduced independence will limit their life roles of premorbid level individual, employee, community member. The patient's co morbidities do affect patient performance in the above activities and roles. The performance deficits are a result of musculoskeletal impairment(s) in right, lower extremity including strength, rangeof motion, balance, acitvity tolerance, and pain. The patient's family / caregiver support is a oil program compliance specialist for return to prior level of function. The patient's compliance is a oil program compliance specialist, awareness of own capacity and performance is a oil program compliance specialist,education level is a oil program compliance specialist to return to prior level of function. During the assessment, minimal to moderate modification of task was required and several treatment options were identified in the plan of care. This consultation required brief review of the medical and therapy history. Activity Tolerance Activity Tolerance: Tolerates 30 min acitivty with multiple rests Therapy Precautions Orthotic Devices: No Weight Bearing Status: X RLE: Non Wt bearing General Rehab Precautions: Fall risk Cognition Overall Cognitive Status: Within Functional Limits Arousal/Alertness: Appropriate responses to stimuli Orientation Level: Oriented X4 Executive functioning: WFL Safety Judgment: Good awareness of safety precautions Problem Solving: Able to problem solve independently Attention: Attends to distracted environment Hearing Status: WFL Social Interaction: WF ADL Grooming: Stand by assist LE Dressing: Stand by assist, Increased time to complete, Use of adaptive equipment Toileting: Stand by assist Functional Mobility: Stand by assist, Adaptive equipment, Additional time Bed Mobility Supine to Sit: Stand by assist Functional Transfers Sit to Stand: Stand by assist Bed to Chair Transfers: Stand by assist Toilet Transfers: Stand by assist, to/from toilet with elevated seat height, Grab bars Cigarette Tipper: other (comment) (Knee Scooter) Home Living Obtained Home Living and PLOF info from: Patient Lives With: Other (Comment) (Sister) Type of Home: House Home Layout: One level Steps to enter home: Yes Rails to enter home: None Number of stairs to enter home: 1 Bathroom Shower/Tub: Walk-in shower, Tub/shower unit Bathroom Toilet: Standard Bathroom Accessibility: Accessible via walker Additional Objective Details - Home Living: Above information is her sister's house where she will be staying for 2 weeks. Her sister works 2nd shift and her mother will also be assisting when sisteris away. 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 OCCUPATIONAL THERAPY TREATMENT NOTE Total Treatment Time (Total Session Time): 29 Minutes Timed Code Treatment Minutes: 15 Minutes Self-Care / ADL Grooming - Washed hands in standing Grooming - Skilled Intervention Provided: monitored patient's safety and tolerance Grooming - For: fall prevention Grooming - Resulting In: improved safety LE Dressing - Donned L sock seated EOB. Pt instructed on use of commutator undercutter and compensatory technique to thread RLE through pants first if she could find pants large enough to fit over cast, and to pullRLE out last to doff. Provided demo. LE Dressing - Skilled Intervention Provided: verbal cues, tactile cues, demonstration, environmental setup/modification, monitored patient's safety & tolerance, patient education LE Dressing - For: adaptive techniques for lower body ADLs, adaptive equipment use, compensatory strategies, task simplification/modification LE Dressing - Resulting In: improved safety, improved performance with ADLs, improved functional independence Toileting - Pt performs own hygiene and clothing management following urination at toilet. Toileting - Skilled Intervention Provided: monitored patient's safety and tolerance Toileting - For: fall prevention Toileting - Resulting In: improved safety Functional Mobility - To/from bathroom using knee scooter without LOB, maintains NWB RLE well Functional Mobility - Skilled Intervention Provided: monitoring patient response with activity Functional Mobility - For: fall prevention, efficient movement Functional Mobility - Resulting In: decreasing fall risk, improved safety, improved performance Therapeutic Activities Functional Transfers Skilled Intervention Provided: verbal cues, monitoring patient response with activity For: efficient movement, fall prevention, safe use of AD and/or equipment, safety during functionaltask(s) Resulting In: improved safety, improved performance, decreasing fall risk Past Medical History: Diagnosis Date Asthma Past Surgical History: Procedure Laterality Date BILAT. BREAST REDUCTION, FREE NIPPLE PROCEDURE 2018 ORIF ANKLE FRACTURE Right 08/01/2021 Procedure: OPEN REDUCTION INTERNAL FIXATION RIGHT ANKLE FRACTURE; Surgeon: Ximena John MD; Location: Main OR; Service: Orthopedic For complete objective data, detailed plan of care and patient education refer to: OT Evaluation flowsheet, OT Evaluation and Treatment flowsheet, OT Treatment flowsheet, patient Plan of Care, Plan of Care progress note, and Patient Education. This note stands as the current Discharge Summary upon patient discharge from the hospital or completion of Occupational Therapy Plan of Care. * Colleen Ugalde, PT - 08/02/2021 8:14 AM EDT Physical Therapy PHYSICAL THERAPY EVALUATION and TREATMENT NOTE Dx: s/p ORIF Right ankle 08/[address] John wants her to use a knee scooter all of the time and Dr. John has already ordered it per pt PHYSICAL THERAPY EVALUATION Skilled Therapy Needs After Discharge Anticipate Resolution of Current Assessment Limitations Including: Pain, Mechanical Barriers, Social Support Are Skilled Therapy Services Needed After Discharge: Yes Intensity of Skilled Therapy: 2-3 days per week Anticipated Duration of Skilled Therapy: Duration 7 - 10 days DME Recommendation: Wheeled Walker (knee scooter ) DME Rationale: Patient's condition creates an increased risk of safety hazard without recommended equipment, Equipment required to maintain weight bearing status per physician orders Rehab Potential: Good Outcomes Measures Prior Function - Basic Mobility Raw Score: 24 Points Prior Function - Basic Mobility % Impaired: 0% AM-PAC Basic Mobility Raw Score: 17 Points AM-PAC Basic Mobility % Impaired: 43.83% Physical Therapy Assessment History: The following factors influence the patient's participation in the PT plan of care: Personal Factors: Age Environmental Factors: Steps to enter home The following co-morbidities (from this admission or prior) influence the patient's participation in this plan of care: See H&P Number of History elements affecting this patient's PT plan of care: 1 to 2 Examination of Body Systems: The patient presents with: Musculoskeletal impairments: Strength, Pain, Functional Endurance Neurologic Impairments: Balance Cardiopulmonary Impairments: Activity Tolerance Integumentary Impairments: Active Wound. These impairments result in limitations of Gait, Functional Transfers, Stair- Climbing, Safety, Activity Tolerance. These impairments result in restrictions of Household mobility, Community mobility, Work-related activities, Leisure activities. Number of Body Systems elements affecting this patient's PT plan of care: 4 or more. Clinical Presentation: The patient's clinical presentation for this PT evaluation is evolving with changing characteristics as evidenced by current PT documentation. Activity Tolerance Activity Tolerance: Tolerates 30 min acitivty with multiple rests Therapy Precautions Orthotic Devices: Yes Lower Extremity: Right (cast ) Weight Bearing Status: X RLE: Non Wt bearing General Rehab Precautions: Fall risk Balance Assessment Sitting Balance - Static: Supervision, with back unsupported Standing Balance - Static: Stand by assist, with device (knee scooter ) Cigarette Tipper - Standing Static: other (comment) (knee scooter ) Bed Mobility Supine to Sit: Head of bed flat, Minimal assist (for RLE) Sit to Supine: (pt in bathroom at end of session with PSA) Transfers Stand Pivot Transfers: Contact guard assist (to knee scooter ) Cigarette Tipper: other (comment) (knee scooter ) Additional Transfer Trial 2: Yes Sit to Stand Trial 2: Contact guard assist Cigarette Tipper Trial 2: other (comment) (knee scooter ) Additional Transfer Trial 3: Yes Sit to Stand Trial 3: Contact guard assist Cigarette Tipper Trial 3: other (comment) (knee scooter ) Car Transfers: Stand by assist Toilet Transfers: Stand by assist, Grab bars, Additional time Cigarette Tipper: other (comment) (knee scooter ) Gait/Locomotion Gait Assistance: Supervision (with knee scooter ) Assistive Device: other (comment) (knee scooter ) Distance: 150 Feet Pattern: (using knee scooter ) Weight Bearing Status: able to maintain (NWB RLE) Environment/Terrain: open/community environment, multiple distractions Stair Management Technique: no rails, scooting up/down while seated, other (comment) (transferred to step from knee scooter --> chair --> scooter ) Stair Management Assistance: Minimal assist, Moderate assist Number of Stairs: 2 Home Living Obtained Home Living and PLOF info from: Patient Lives With: Family (sister) Type of Home: House Home Layout: One level Steps to enter home: Yes Rails to enter home: None Number of stairs to enter home: 1 (through garage ) Bathroom Shower/Tub: Tub/shower unit, Walk-in shower Bathroom Toilet: Standard Bathroom Accessibility: Accessible via walker Additional Objective Details - Home Living: Above information is her sister's house where she will be staying for 2 weeks. Her sister works 2nd shift and her mother will also be assisting when sisteris away. Prior Level of Function Level of Dexter - Transfers/Ambulation/Mobility: Independent with functional transfers, Independent with household ambulation Level of Dexter - ADLs: Independent Level of Dexter - Homemaking: Independent Driving: Patient drives Vocational: Full-time employment Subjective Impression - Prior Function: Pt does not use AD Additional Assessment: Pt transferred to knee scooter, propelled self to therapy gym. Pt in bathroom at end of session with PSA present. All questions answered, pt feels safe with stair method at home with 2A. PHYSICAL THERAPY TREATMENT NOTE Total Treatment Time (Total Session Time): 32 Minutes Timed Code Treatment Minutes: 15 Minutes Gait Training Skilled Intervention Provided: verbal cues, monitoring patient response with activity, demonstration, patient education, provided step by step instructions For: device adjustment fit to patient, device management and safe use of device, stairs sequence/technique, UE positioning, UE management Resulting in: improved safety, improved functional independence, decreasing fall risk Therapeutic Activities Transfers Skilled Intervention Provided: verbal cues For: UE positioning, LE positioning, safe use of AD and/or equipment, safety during functional tasks, efficient movement, controlled descent Resulting in: improved safety, improved performance, improved functional independence, decreasing fall risk, improved adherence to precautions Functional Transfers (Car and/or Toilet Transfers) Skilled Intervention Provided: verbal cues, demonstration, patient education, provided step by stepinstructions For: controlled descent, UE positioning, LE positioning, safe use of AD and/or equipment, safety during functional tasks, fall prevention, efficient movement Resulting in: improved safety, improved performance, improved functional independence, improved adherence to precautions Additional Treatment Details Stair training-pt transferred from knee scooter to second step with min A to simulate going into her sister's home. Pt then transferred to chair and to knee scooter. Pt stated this is similar to how she would transfer into her sister's home. Pt stated she has 2A that could help her do this. Pt was able to maintain NWB throughout session. Past Medical History: Diagnosis Date Asthma Past Surgical History: Procedure Laterality Date BILAT. BREAST REDUCTION, FREE NIPPLE PROCEDURE 2017 For complete objective data, detailed plan of care and patient education refer to: PT Evaluation flowsheet, PT Evaluation and Treatment flowsheet, PT Treatment flowsheet, patient Plan of Care, Plan of Care progress note, and Patient Education. This note stands as the current Discharge Summary upon patient discharge from the hospital or completion of Physical Therapy Plan. * Ximena John MD - 08/01/2021 10:02 AM EDT Associated Order(s): IP CONSULT TO ORTHOPEDIC SURGERY ORTHOPEDIC CONSULTATION Reason for consultation: right trimalleolar ankle fracture Requesting provider: Vanessa Kiran CNP HPI: Azeb Hutchison is a 55 y.o. year old female seen at the request of Vanessa Kiran CNP for right trimalleolar ankle fracture. This patient fell yesterday while leaving her optomotrists office. She fell and injured her right ankle. She was unable to weight-bear afterwards. She came to the emergency department where x-rays were performed. She was diagnosed with a trimalleolar ankle fracture. A CT was performed. She was admitted because she had stairs at home and lives alone. I was consulted. Past Medical History: Diagnosis Date Asthma Current Facility-Administered Medications: acetaminophen (TYLENOL) tablet 650 mg, 650 mg, Oral, Q6H, Rogelio Shaw MD, 650 mg at 08/01/21 0550 aluminum-magnesium hydroxide-simethicone (MAALOX PLUS) 200-200-20 mg/5 mL suspension 30 mL, 30 mL, Oral, Q4H PRN, Rogelio Shaw MD gabapentin (NEURONTIN) capsule 300 mg, 300 mg, Oral, Q8H TANYA, Rogelio Shaw MD, 300 mg at 551 HYDROcodone-acetaminophen (NORCO) 5-325 mg per tablet 1 tablet, 1 tablet, Oral, Q4H PRN, Rogelio Shaw MD, 1 tablet at 07/31/212020 HYDROmorphone (DILAUDID) injection 0.5 mg, 0.5 mg, Intravenous, Q2H PRN, Rogelio Shaw MD, 0.5 mg at 08/01/21 0853 magnesium hydroxide (MOM) 400 mg/5 mL suspension 2,400 mg, 30 mL, Oral, Daily PRN, Rogelio Shaw MD naloxone (NARCAN) injection 0.1 mg, 0.1 mg, Intravenous, PRN AND Notify physician, , , Until Discontinued AND naloxone (NARCAN) injection 0.4 mg, 0.4 mg, Intravenous, PRN, Rogelio Shaw MD ondansetron (ZOFRAN) injection 4 mg, 4 mg, Intravenous, Q6H PRN, Rogelio Shaw MD, 4 mg at 08/01/21 0027 senna (SENOKOT) tablet 8.6 mg, 1 tablet, Oral, BID PRN, Rogelio Shaw MD Saline lock IV, , , Continuous AND sodium chloride (PF) (NS) flush 5 mL, 5 mL, Intravenous, PRN, 5 mL at 08/01/21 0446 AND sodium chloride (PF) (NS) flush 5 mL, 5 mL, Intravenous, Q8H TANYA AND sodium chloride 0.9% (NS), 0-150 mL/hr, Intravenous, PRN, Rogelio Shaw MD sodium chloride 0.9% (NS), 100 mL/hr, Intravenous, Continuous, Rogelio Shaw MD, Last Rate: 100 mL/hr at 08/01/21 0558, 100 mL/hr at 08/01/21 0558 traZODone (DESYREL) tablet 50 mg, 50 mg, Oral, Nightly PRN, Rogelio Shaw MD Allergies Allergen Reactions Albuterol Shortness Of Breath Codeine Morphine Penicillins Rash Past Surgical History: Procedure Laterality Date BILAT. BREAST REDUCTION, FREE NIPPLE PROCEDURE 2018 Social History Socioeconomic History Marital status: Spouse name: Not on file Number of children: Not on file Years of education: Not on file Highest education level: Not on file Occupational History Not on file Tobacco Use Smoking status: Former Smoker Quit date: 07/31/1990 Years since quittin.0 Smokeless tobacco: Never Used Vaping Use Vaping Use: Never used Substance and Sexual Activity Alcohol use: Yes Comment: socially Drug use: Never Sexual activity: Not on file Other Topics Concern Not on file Social History Narrative Not on file Social Determinants of Health Financial Resource Strain: Difficulty of Paying Living Expenses: Not on file Food Insecurity: Worried About Running Out of Food in the Last Year: Not on file Ran Out of Food in the Last Year: Not on file Transportation Needs: Lack of Transportation (Medical): Not on file Lack of Transportation (Non-Medical): Not on file Physical Activity: Days of Exercise per Week: Not on file Minutes of Exercise per Session: Not on file Stress: Feeling of Stress : Not on file Social Connections: Frequency of Communication with Friends and Family: Not on file Frequency of Social Gatherings with Friends and Family: Not on file Attends Hoahaoism Services: Not on file Active Member of Clubs or Organizations: Not on file Attends Club or Organization Meetings: Not on file Marital Status: Not on file Housing Stability: Unable to Pay for Housing in the Last Year: Not on file Number of Places Lived in the Last Year: Not on file Unstable Housing in the Last Year: Not on file ROS: Complete review of systems was performed by Vanessa Kiran CNP. Please see her note from 07/31/21 for further details. PACU Vitals 08/01/21 0841 BP: Pulse: Resp: 16 Temp: SpO2: Exam: General: no acute distress Appearance: appears younger than stated age Neurologic: Patient is alert and oriented x3 pleasant and cooperative. Mood and affect: Normal HEENT: normocephalic, attraumatic. Extraocular muscles grossly normal. Pulm: respiratory effort is normal Extremity: Right Lower Extremity Neurovascularly intact Wiggles toes Splint in place but opened for exam Mild swelling but skin wrinkles present Tenderness to palpation over medial and lateral mall Radiographs: Xrays and CT scan reviewed. Trimalleolar ankle fracture dislocation. Labs: Lab Results Component Value Date WBC 6.60 08/01/2021 HGB 11.6 (L) 08/01/2021 HCT 35.7 (L) 08/01/2021 MCV 96.7 08/01/2021 PLT 243 08/01/2021 RBC 3.69 (L) 08/01/2021 Lab Results Component Value Date GLUCOSE 146 (H) 08/01/2021 CALCIUM 8.6 08/01/2021 NA 142 08/01/2021 K 3.9 08/01/2021 CL 113 (H) 08/01/2021 BUN 16 08/01/2021 CREATININE 1.40 (H) 08/01/2021 No results found for: INR, PROTIME Impression: Right trimalleolar ankle fracture Plan: Nonweightbearing right lower extremity NPO To OR today for open reduction internal fixation vs ex fix Informed consent for treatment of Azeb Hutchison to be surgically treated with right trimalleolar ankle fracture open reduction internal fixation vs ex fix was obtained during which I discussed: the nature, description, and purpose of the planned procedure the benefits and risks involved in the treatment or procedure, including the prospects for success and the likely results of the proposed treatment/procedure the possibility of complications and/or side effects and what those complications/side effects might be reasonable alternative treatments available as well as the prognosis if treatment or procedure is not done that additional unforeseen procedures may be indicated based upon the operative findings Risks unique to this case include, but are not limited to, pain, infection, bleeding, neurovascularcompromise, non-union, malunion, disability, deformity, hardware failure, need for further surgery,risks of anesthesia, DVT, PE, CVA, KS, and . The patient was asked to repeat back understanding of the above conversation and additional clarification was provided as needed. A witness has documented that the patient read the consent form, reported understanding, and was given the opportunity to ask questions. documented in this [id number] Hospital Discharge instructions * Discharge Instr - IP PT* Colleen Ugalde PT - 08/02/2021 9:09 AM EDT Pt to be discharged with 2WW (already in room) documented in this [id number] Emergency department Note* Adina Moreno RN - 07/31/2021 6:32 PM EDT Report given to [id number] RN, no s/s of distress, resp =/unlabored * Argenis Cleveland PA-C - 07/31/2021 5:48 PM EDT Associated Order(s): Splint Application ED PROVIDER NOTE [facility] EMERGENCY DEPARTMENT NAME: Azeb Hutchison AGE: 55 y.o. : 1965 VISIT DATE: 07/31/2021 CSN: [id number] PCP: Rehana Hernandez MD Chief Complaint Patient presents with Fall Patient c/o right ankle pain States twisted ankle while ambulating at eye doctor's office Patient denies other injuries No head injury or LOC No NV Patient unable to ambulate on leg History provided by: Patient Fall History reviewed. No pertinent past medical history. No past surgical history on file. History reviewed. No pertinent family history. Social History Socioeconomic History Marital status: Spouse name: Not on file Number of children: Not on file Years of education: Not on file Highest education level: Not on file Occupational History Not on file Tobacco Use Smoking status: Not on file Smokeless tobacco: Not on file Substance and Sexual Activity Alcohol use: Not on file Drug use: Not on file Sexual activity: Not on file Other Topics Concern Not on file Social History Narrative Not on file Social Determinants of Health Financial Resource Strain: Difficulty of Paying Living Expenses: Not on file Food Insecurity: Worried About Running Out of Food in the Last Year: Not on file Ran Out of Food in the Last Year: Not on file Transportation Needs: Lack of Transportation (Medical): Not on file Lack of Transportation (Non-Medical): Not on file Physical Activity: Days of Exercise per Week: Not on file Minutes of Exercise per Session: Not on file Stress: Feeling of Stress : Not on file Social Connections: Frequency of Communication with Friends and Family: Not on file Frequency of Social Gatherings with Friends and Family: Not on file Attends Hoahaoism Services: Not on file Active Member of Clubs or Organizations: Not on file Attends Club or Organization Meetings: Not on file Marital Status: Not on file Housing Stability: Unable to Pay for Housing in the Last Year: Not on file Number of Places Lived in the Last Year: Not on file Unstable Housing in the Last Year: Not on file Previous Medications Medication Sig gabapentin (NEURONTIN) 100 MG capsule Take 100-300 mg by mouth 3 (three) times a day as needed . PNV no.95/ferrous fum/folic ac ( ORAL) Take 1 tablet by mouth daily . Allergies Allergen Reactions Albuterol Codeine Morphine Review of Systems Musculoskeletal: Positive for arthralgias, joint swelling and myalgias. All other systems reviewed and are negative. Patient Vitals for the past 24 hrs: BP Temp Pulse Resp SpO2 Height Weight 07/31/21 1715 75 16 100 % 07/31/21 1700 (!) 143/102 75 16 97 % 07/31/21 1518 (!) 187/90 07/31/21 1517 98.2 F (36.8 C) (!) 20 100 % 5' 3 69.4 kg (153 lb) 07/31/21 1514 90 Physical Exam Vitals and nursing note reviewed. Constitutional: Appearance: She is normal weight. HENT: Head: Normocephalic and atraumatic. Right Ear: External ear normal. Left Ear: External ear normal. Nose: Nose normal. Mouth/Throat: Mouth: Mucous membranes are moist. Pharynx: No oropharyngeal exudate. Eyes: General: No scleral icterus. Conjunctiva/sclera: Conjunctivae normal. Cardiovascular: Rate and Rhythm: Normal rate and regular rhythm. Pulses: Normal pulses. Heart sounds: Normal heart sounds. Pulmonary: Effort: Pulmonary effort is normal. Breath sounds: Normal breath sounds and air entry. Chest: Chest wall: No tenderness. Abdominal: General: Bowel sounds are normal. Palpations: Abdomen is soft. Tenderness: There is no abdominal tenderness. There is no right CVA tenderness, left CVA tendernessor guarding. Musculoskeletal: General: Swelling, tenderness and deformity present. Right ankle: Swelling and deformity present. Tenderness present. No proximal fibula tenderness. Decreased range of motion. Normal pulse. Right Achilles Tendon: Normal. Skin: General: Skin is warm. Capillary Refill: Capillary refill takes less than 2 seconds. Findings: No rash. Neurological: General: No focal deficit present. Mental Status: She is alert and oriented to person, place, and time. Cranial Nerves: No cranial nerve deficit or facial asymmetry. Sensory: Sensation is intact. No sensory deficit. Motor: No weakness. Gait: Gait abnormal. Psychiatric: Attention and Perception: Attention normal. Mood and Affect: Mood is anxious. Affect is tearful. Speech: Speech normal. Behavior: Behavior normal. Behavior is cooperative. Thought Content: Thought content normal. Cognition and Memory: Cognition normal. Judgment: Judgment normal. Laboratory & Radiographic Imaging (if done): Results for orders placed or performed during the hospital encounter of 07/31/21 Chem 7 Result Value Ref Range Sodium 143 135 - 145 mmol/L Potassium 3.9 3.5 - 5.1 mmol/L Chloride 111 (H) 98 - 108 mmol/L Bicarbonate 26 21 - 32 mmol/L Creatinine 1.50 (H) 0.40 - 1.10 mg/dL Glucose 83 65 - 99 mg/dL BUN 16 8 - 25 mg/dL eGFR 44 (L) >=60 mL/min/1.73 m2 BUN/Creatinine Ratio 10.7 10.0 - 20.0 Anion Gap 10 10 - 20 mmol/L CBC Auto Differential Result Value Ref Range WBC 8.57 4.50 - 11.00 K/mcL RBC 4.47 4.00 - 5.20 M/mcL Hemoglobin 13.8 12.0 - 16.0 g/dL Hematocrit 42.5 36.0 - 46.0 % MCV 95.1 80.0 - 100.0 fL MCH 30.9 26.0 - 34.0 pg MCHC 32.5 31.0 - 37.0 g/dL Platelets 318 150 - 400 K/mcL RDW - CV 13.2 11.6 - 14.8 % MPV 9.2 (L) 9.4 - 12.4 fL Neutrophils 61.8 % Lymphocytes 27.9 % Monocytes 8.1 % Eosinophils 1.1 % Basophils 0.9 % IG Percent 0.20 % Neutrophils Abs 5.30 1.70 - 7.00 K/mcL Lymphocytes Abs 2.39 0.90 - 4.00 K/mcL Monocytes Abs 0.69 0.30 - 0.90 K/mcL Eosinophils Abs 0.09 0.00 - 0.50 K/mcL Basophils Abs 0.08 0.00 - 0.30 K/mcL IG Absolute 0.02 0.00 - 0.30 K/mcL Nucleated RBC 0.0 % Nucleated RBC Abs 0.00 0.00 - 0.00 K/mcL CT Ankle Right Without Contrast Preliminary Result 1. Trimalleolar fracture is noted with tibiotalar subluxation and binding of the anterior tibiotalar joint space. SZD/mjr Workstation ID: [id number] XR Ankle Right 3+ Views (Standard) Final Result FINDINGS/ Apparent acute trimalleolar fracture of the right ankle with disruption of the ankle mortise and widening of the medial clear space up to approximately 7 mm. Acute fracture of the distal fibula demonstrates mild lateral displacement and mild foreshortening.Acute mildly displaced and angulated fracture of the medial malleolus. Acute nondisplaced fracture of the posterior malleolus is suspected on the lateral view. Proximal extent of the right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 albuterol 108 (90 Base) MCG/ACT Aero Soln inhaler; 1-2 puffs every 4-6 hours as needed for SOB, chest tightness, wheezing with spacer Flu-like symptoms - POCT INFLUENZA, A B Referral of patient - AMB REFERRAL TO FAMILY PRACTICE Other orders - cyclobenzaprine 10 MG Tab tablet; cyclobenzaprine FLEXERIL 10 MG TABS every night CYCLOBENZAPRINE HCL [id number] Tonya Moss 07-09-2012 [facility] ([id number]) - ibuprofen 800 MG Tab; ibuprofen IBUPROFEN 800 MG TABS three times a day IBUPROFEN [id number] Tonya Moss 07-09-2012 [facility] ([id number]) - levalbuterol (XOPENEX) 1.25 MG/3ML Nebu Soln; levalbuterol XOPENEX 1.25 MG/3ML NEBU every 6-8 [id number] LEVALBUTEROL HCL [id number] Tonya Moss 07-09-2012 [facility] ([id number]) - zolpidem 5 MG Tab tablet; zolpidem AMBIEN 5 MG TABS every night ZOLPIDEM TARTRATE [id number] Tonya Moss 07-09-2012 [facility] ([id number]) Start antiviral & inhaler as prescribed. Continue Tylenol/Motrin/Ibuprofen for fever & aches. Increase hydration/fluids Continue all other medications as previously prescribed by other providers. Establish with Primary Care Provider Return to clinic in 5-7 days if not improving or worsening of symptoms Go to the nearest Emergency Department for any Chest Pain or Shortness of Breath Yelena Sahni CNP 12/17/2018 documented in this encounter Assessments Diagnosis Influenza A- Primary Influenza with other respiratory manifestations Flu-like symptoms Influenza with other respiratory manifestations Referral of patient Referral of patient without examination or treatment Chief Complaint Chief Complaint Description Start Date right ankle pain Preliminary chief co mplaint data, not yet signed by the author as of Additional Source Comments INFORMATION SOURCE (unrecogn ized section and content) DATE CREATED AUTHOR AUTHOR'S ORGANIZ ATION 04/01/2018 [facility] DATE CREATED AUTHOR AUTHOR'S ORGANIZ ATION 10/02/2021 [facility] DATE CREATED AUTHOR AUTHOR'S ORGANIZ ATION [facility] DATE CREATED AUTHOR AUTHOR'S ORGANIZ ATION 02/12/2022 [facility] DATE CREATED AUTHOR AUTHOR'S ORGANIZ ATION 04/25/2022 [facility] DATE CREATED AUTHOR AUTHOR'S ORGANIZ ATION 10/16/2023 [facility] Reason for Visit (unrecogniz ed section and content) Reason Comments Fall Specialty Diagnoses / Procedures Referred By Contac t Referred To Contact Diagnoses Closed fracture of right ankle, initial encounter Ankle fracture, bimalleolar, closed, right, initial encounter Referral ID Status Reason Start Date Expiration Date Visits Re quested Visits Authorized [id number] 1 1 Reason Onset Date Comments Medication Refill 08/08/2021 Reason Comments Injury Post-op POST OP ORIF RT BIMA L. FX SX:08/01/21 Specialty Diagnoses / Procedures Referred By Contac t Referred To Contact Rehabilitation Diagnoses Ankle fracture, bimalleolar, closed, right, initial encounter Ximena John MD [address] [place] [address] [facility] [address] [place] [phone] Referral ID Status Reason Start Date Expiration Date V isits Requested Visits Authorized [id number] Authorized 09/11/2021 09/11/2022 12 60 Reason Comments Follow-up Referral ID Status Reason Start Date Expiration Date V isits Requested Visits Authorized [id number] Authorized 09/11/2021 10/05/2022 12 199 Reason Comments Physical Therapy Specialty Diagnoses / Procedures Referred By Contac t Referred To Contact Rehabilitation Diagnoses Ankle fracture, bimalleolar, closed, right, initial encounter Ximena John MD [address] [place] [address] [facility] [address] [place] [phone] Reason For Visit Description Start Date New - 1st visit with practice Preliminary reason f or visit data, not yet signed by the author as of right ankle pain Specialty Diagnoses / Procedures Referred By Aracelis t Referred To Contact Rehabilitation Diagnoses Ankle fracture, bimalleolar, closed, right, initial encounter Presence of functional implant, unspecified Exten, Ximena Vasquez MD [address] [place] [address] [facility] [address] [place] [phone] Reason Comments Leg Pain Lower left leg pain sent to r/o DVT Reason Comments New Patient Labs 09/09 bun-21, cr -1.58 pt got labs sent from [facility] has many questions about her genetic testing done in [place] Specialty Diagnoses / Procedures Referred By Aracelis russell Referred To Contact Ultrasound Diagnoses Stage 3b chronic kidney disease Procedures US RENAL RETROPERITONEAL Rudy Iniguez MD [address] [place] [address] [facility] [address] [place] [phone] Referral ID Status Reason Start Date Expiration Date Visits Re quested Visits Authorized [id number] Closed 10/24/2022 11/18/2023 1 1 Specialty Diagnoses / Procedures Referred By Aracelis russell Referred To Contact Computerized Tomography Scan Diagnoses Stage 3b chronic kidney disease Procedures CT UROGRAM ABDOMEN/PELVIS W/ CT POST PROCESSING Rudy Iniguez MD [address] [place] [address] [facility] [address] [place] [address] Referral ID Status Reason Start Date Expiration Date Visits Re quested Visits Authorized [id number] Closed 11/06/2022 12/01/2023 1 1 Reason Comments New Patient Reason Comments Leg Pain Woke Friday night wi th left leg pain, has small circular bruised area and swelling to posterior left lower leg. NKI. Reason Comments Pain Specialty Diagnoses / Procedures Referred By Contac t Referred To Contact Orthopaedics Diagnoses Pain of left lower extremity Renée Araujo PA-C [address] [place] [address] Debra Max, DO [address] [place] [address] Referral ID Status Reason Start Date Expiration Date V isits Requested Visits Authorized [id number] New Request 01/16/2023 02/10/2024 1 1 Reason Comments Chronic Kidney Disease La bs-02/10-BUN-17, cr-1.69 Hypertension Pt states BP has bee n 120/70's No longer taking amlodipine either. Other Rayaldee gave pt ext moose pain. Stopped rayaldee. Reason Comments Chronic Kidney Disease Labs 04/14 bun-19, cr-1.49 Reason Comments Allergic Reaction To ed with c/o sob a nd scratchy throat after being stung by bee. Reason Comments Chronic Kidney Disease Labs 07/08 bun-22, cr-1.61 Reason Comments Laceration Left thumb Reason Comments Cough Onset 1 wk ago with sore throat and cough. Has asthma and is concerned about the cough Scheduled Active and Recently Administ ered Medications (unrecognized section and content) Continuous Medication Order 08/01/2021 08/02/2021 08/03/2021 lactated Ringers infusion (CANCELED) 100 mL/hr, Intravenous, Continuous, Starting on Fri08/01/21 at 1515, PACU (only) 1633 (New Bag - Provider: Jacki Morton, HEIDI)2053 (Stopped - Provider: Edie Gil, HEIDI) 191 (Stopped - Provider: Kylie Malhotra RN) sodium chloride 0.9% (NS) (CANCELED) 100 mL/hr, Intravenous, Continuous, Starting on Fri07/31/21 at 1740 0553 (Stopped - Provider: Dang Leon RN)0558 (New Bag - Provider: Dang Leon RN)0558 (Rate/Dose Verify - Provider: Jacki Morton RN)0856 (Rate/Dose Verify - Provider: Jacki Morton RN)0911 (Rate/Dose Verify - Provider: Jacki Morton RN)1139 (Stopped - Provider: Jacki Morton RN)1148 (DEC Hold - Provider: Transfer Provider, Automatic - Reason: Unreviewed Transfer Orders)1619 (DEC Unhold - Provider: Jacki Morton RN)2054 (New Bag - Provider: Edie Gil RN) 191 (Stopped - Provider: Kylie Malhotra RN) PRN Medication Order 08/01/2021 08/02/2021 08/03/2021 aluminum-magnesium hydroxide-simethicone (MAALOX PLUS) 200-200-20 mg/5 mL suspension 30 mL 30 mL, Oral, Every 4 hours PRN, indigestion, Starting on Fri07/31/21 at 1738 1148 (DEC Hold - Provider: Transfer Provider, Automatic - Reason: Unreviewed Transfer Orders)1619 (DEC Unhold - Provider: Jacki Morton RN) gentamicin (GARAMYCIN) 80 mg in sodium chloride (NS) 0.9 % 1,000 mL IRRIGATION (Bottle) (CANCELED) As needed, Starting on Fri08/01/21 at 1256, Intra-Procedure 1256 (Given - Provider: Ximena John MD) HYDROmorphone (DILAUDID) injection 0.5 mg (CANCELED) 0.5 mg, Intravenous, Every 2 hour PRN, moderate to severe pain, Starting on Fri07/31/21 at 1738 0442 (Given - Provider: Dang Leon RN - Comment: pt requested for pain)0853 (Given - Provider: Jacki Morton RN)1056 (Given - Provider: Mandie Ramos RN)1148 (DEC Hold - Provider: Transfer Provider, Automatic - Reason: Unreviewed Transfer Orders)1619 ([facility] Unhold - Provider: Ximena John MD) ketorolac (TORADOL) injection 30 mg 30 mg, Intravenous, Every 6 hours PRN, mild pain, Starting on Yoli 08/02/21 at 1053, For 48 hours 1629 (Given - Provider: Kylie Malhotra, RN)2037 (Given - Provider: Nara Sykes, RN) 0506 (Given - Provider: Nara Sykes, RN)1147 (Given - Provider: Mary Mendes RN) magnesium hydroxide (MOM) 400 mg/5 mL suspension 2,400 mg 2,400 mg (30 mL), Oral, Daily PRN, constipation, Starting on Fri07/31/21 at 1738, If no bowel movement in 24 hours after Sennosides (SENNA) administration. 1148 (DEC Hold - Provider: Transfer Provider, Automatic - Reason: Unreviewed Transfer Orders)1619 ([facility] Unhold - Provider: Jacki Morton RN) naloxone (NARCAN) injection 0.1 mg(Linked Group 2) 0.1 mg, Intravenous, As needed, opioid reversal, For respiratory rate less than or equal to 8 per minute., Starting on Fri07/31/21 at 1737, Mix nalOXone (NARCAN) 0.4 mg (1ml) with 9 mL of Normal Saline to total 10 mL. Administer 0.1 mg (2.5ml) IV Push every 2 minutes until respiratory rate is 10 or greater. 1148 ([facility] Hold - Provider: Transfer Provider, Automatic - Reason: Unreviewed Transfer Orders)1619 ([facility] Unhold - Provider: Jacki Morton RN) naloxone (NARCAN) injection 0.4 mg(Linked Group 2) 0.4 mg, Intravenous, As needed, opioid reversal, patient is pulseless, breathless, and unresponsive, Starting on Fri07/31/21 at 1737, Call a code first, then administer naloxone dose undiluted IV Push over 30 seconds. 1148 (DEC Hold - Provider: Transfer Provider, Automatic - Reason: Unreviewed Transfer Orders)1619 ([facility] Unhold - Provider: Jacki Morton RN) ondansetron (ZOFRAN) injection 4 mg 4 mg, Intravenous, Every 6 hours PRN, nausea, vomiting, Starting on Fri07/31/21 at 1738 0027 (Given - Provider: Dang Leon RN - Comment: pt requested for nasuea)1148 ([facility] Hold - Provider: Transfer Provider, Automatic - Reason: Unreviewed Transfer Orders)1619 ([facility] Unhold - Provider: Jacki Morton HEIDI) oxyCODONE (ROXICODONE) immediate release tablet 5 mg 5 mg, Oral, Every 4 hours PRN, moderate to severe pain, Starting on Fri08/01/21 at 1619 0025 (Given - Provider: Edie Gil RN)0421 (Given - Provider: Edie Gil RN)0943 (Given - Provider: Renée Guerra RN - Comment: pt c/o 07/15 R ankle)1113 (Canceled Entry - Provider: Kylie Malhotra RN)1329 (Given - Provider: Kylie Malhotra RN)1850 (Given - Provider: Kylie Malhotra RN)2235 (Given - Provider: Nara Sykes, HEIDI) 0908 (Given - Provider: Mary Mendes, HEIDI)1304 (Given - Provider: Mary Mendes, HEIDI) senna (SENOKOT) tablet 8.6 mg 8.6 mg (1 tablet), Oral, 2 times daily PRN, constipation, Starting on Fri07/31/21 at 1738 1148 ([facility] Hold - Provider: Transfer Provider, Automatic - Reason: Unreviewed Transfer Orders)1619 ([facility] Unhold - Provider: Jacki Morton, HEIDI) sodium chloride (PF) (NS) flush 5 mL(Linked Group 1) 5 mL, Intravenous, As needed, line care, Starting on Fri07/31/21 at 1738 0446 (Given - Provider: Dang Leon RN)1148 ([facility] Hold - Provider: Transfer Provider, Automatic - Reason: Unreviewed Transfer Orders)1619 ([facility] Unhold - Provider: Jacki Morton RN) sodium chloride 0.9% (NS)(Linked Group 1) 0-150 mL/hr, Intravenous, As needed, To flush line after IV infusions when no maintenance IV ordered or a compatibility issue. Infuse 20ml at the same rate as the secondary infusion, Starting on Fri07/31/21 at 1738, Run as Primary IV. NOT intended for KVO. 1148 ([facility] Hold - Provider: Transfer Provider, Automatic - Reason: Unreviewed Transfer Orders)1619 ([facility] Unhold - Provider: Jacki Morton, HEIDI) traZODone (DESYREL) tablet 50 mg 50 mg, Oral, Nightly PRN, sleep, Starting on Fri07/31/21 at 1738, May repeat times 1 in 30 minutes if still awake. 1148 (DEC Hold - Provider: Transfer Provider, Automatic - Reason: Unreviewed Transfer Orders)1619 ([facility] Unhold - Provider: Jacki Morton RN) vancomycin (VANCOCIN) 1 g in sodium chloride 0.9 % (NS) 2 mL surgical paste (CANCELED) As needed, Starting on Fri08/01/21 at 1408, Intra-Procedure 1408 (Given - Provider: Ximena John MD) No Frequency Medication Order 08/01/2021 08/02/2021 08/03/2021 midazolam (VERSED) 1 mg/mL injection - ADS Override Pull (COMPLETED) Starting on Fri08/01/21 at 1152, For 1 dose, Krish Hernandez: cabinet override 1156 (Given - Provider: Rosalba Dela Cruz RN) Linked Groups Order Group 1: Saline lock IV (CANCELED) Routine, Continuous, Starting on Fri07/31/21 at 1739, Until Specified And sodium chloride (PF) (NS) flush 5 mLJump to med 5 mL, Intravenous, As needed, line care, Starting on Fri07/31/21 at 1738 And sodium chloride (PF) (NS) flush 5 mLJump to med 5 mL, Intravenous, Every 8 hours scheduled, First dose on Fri07/31/21 at 1740
Saline lock
And sodium chloride 0.9% (NS)Jump to med 0-150 mL/hr, Intravenous, As needed, To flush line after IV infusions when no maintenance IV ordered or a compatibility issue. Infuse 20ml at the same rate as the secondary infusion, Starting on Fri07/31/21 at 1738
Run as Primary IV. NOT intended for KVO.
Group 2: naloxone (NARCAN) injection 0.1 mgJump to med 0.1 mg, Intravenous, As needed, opioid reversal, For respiratory rate less than or equal to 8 per minute., Starting on Fri07/31/21 at 1737
Mix nalOXone (NARCAN) 0.4 mg (1ml) with 9 mL of Normal Saline to total 10 mL. Administer 0.1 mg (2.5ml) IV Push every 2 minutes until respiratory rate is 10 or greater.
And Notify physician (CANCELED) STAT, Until discontinued, Starting on Fri07/31/21 at 1738, Until Specified
Respiratory rate less than: 8
For respiratory rate less than or equal to 8, notify physician and/or appropriate staff for additional orders. And naloxone (NARCAN) injection 0.4 mgJump to med 0.4 mg, Intravenous, As needed, opioid reversal, patient is pulseless, breathless, and unresponsive, Starting on Fri07/31/21 at 1737
Call a code first, then administer naloxone dose undiluted IV Push over 30 seconds.
Scheduled Medication Order 01/14/2023 01/15/2023 01/16/2023 lidocaine (LIDODERM) 5 % patch 1 patch 1 patch, Transdermal, Administer over 12 Hours, EVERY 24 HOURS, First dose on Yoli 01/16/23 at 2145, Until Discontinued, Apply to back of left leg. Remove patch after duration of 12 hours. An action of Patch Applied within the [facility] will schedule the [facility] patch removal 12 hours later. 2124 (Patch Applied - Provider: Emi Chu RN - Comment: left calf)2129 (Due: Patch Removed - Provider: System Discharge - Comment: Time automatically adjusted from order being discontinued) oxyCODONE-acetaminophen (PERCOCET) 5-325 MG per tablet 1 Each Oral, SEE ADMIN INSTRUCTIONS, Starting on Yoli 01/16/23 at 2112, Until Yoli 01/16/23 at 2331, Provide patient with 4 pack of Acetaminophen/Oxycodone 325-5 mg, take 1 or 2 tabs by mouth every 4 hours as needed for pain. Nursing to document as GIVEN on the MAR and include comment of patient receipt of the 4 pack. 2123 (Given - Provid er: Emi Chu RN) Scheduled Medication Order 05/13/2023 05/14/2023 05/15/2023 diphenhydrAMINE (BENADRYL) injection 25 mg (COMPLETED) 25 mg, Intravenous, ONCE, 1 dose, On Yloi 05/15/23 at 2015 1948 (Given - Provid er: Jane Mccall RN) famotidine (PF) (PEPCID) injection 40 mg (COMPLETED) 40 mg, Intravenous, ONCE, 1 dose, On Yoli 05/15/23 at 1945, Administer undiluted by slow IV push at a rate not to exceed 10mg/min. 194 (Given - Provid er: Jane Mccall RN) Ketorolac (TORADOL) injection 15 mg (COMPLETED) 15 mg, Intravenous, ONCE, 1 dose, On Yoli 05/15/23 at 2115 2044 (Given - Provid er: Jane Mccall RN) methylPREDNISolone sodium succinate (SOLU-MEDROL) injection 125 mg (COMPLETED) 125 mg, Intravenous, ONCE, 1 dose, On Yoli 05/15/23 at 2015 1950 (Given - Provid er: Jane Mccall RN) oxyCODONE-acetaminophen (PERCOCET) 5-325 MG per tablet 1 tablet (COMPLETED) 1 tablet, Oral, ONCE, 1 dose, On Yoli 05/15/23 at 2200, 2146 (Given - Provid er: Ken Barrios RN) Scheduled Medication Order 07/09/2023 07/10/2023 07/11/2023 Bacitracin ointment 1 Application (COMPLETED) 1 Application, Topical, ONCE, 1 dose, On Fri07/11/23 at 1400, Apply to laceration dorsum of IP joint left thumb. Then bandaid. Then re-apply patient's thumb splint which she has with her. 1345 (Given - Provid er: Juli Flores RN) Care Teams (unrecognized sec tion and content) Core Worker Relationship Specialty Start Date End Date Rehana Hernandez MD [address] [facility] [address] [place], [place] [phone] PCP - General Family Medicine 03/26/16 Core Worker Relationship Specialty Start Date End Date Rehana Hernandez MD [address] [facility] [address] [place], [place] [id number] PCP - General Family Medicine 03/26/16 Core Worker Relationship Specialty Start Date End Date Rehana Hernandez MD [address] [facility] [address] [place], [place] [phone] PCP - General Family Medicine 03/26/16 Core Worker Relationship Specialty Start Date End Date Rehana Hernandez MD [address] [place] [address] PCP - General Family Medicine 03/26/16 Core Worker Relationship Specialty Start Date End Date Rehana Hernandez MD [address] [place] [address] PCP - General Family Medicine 03/26/16 Core Worker Relationship Specialty Start Date End Date Rehana Hernandez MD [address] [place] [address] PCP - General Family Medicine 03/26/16 Core Worker Relationship Specialty Start Date End Date Rehana Hernandez MD [address] [place] [address] PCP - General Family Medicine 03/26/16 Core Worker Relationship Specialty Start Date End Date Rehana Hernandez MD [address] [place] [address] PCP - General Family Medicine 03/26/16 Core Worker Relationship Specialty Start Date End Date Rehana Hernandez MD [address] [address] [place] [address] PCP - General Family Medicine 03/26/16 Core Worker Relationship Specialty Start Date End Date Rehana Hernandez MD [address] [place] [address] PCP - General Family Medicine 03/26/16 Core Worker Relationship Specialty Start Date End Date Rehana Hernandez MD [address] [place] [address] PCP - General Family Medicine 03/26/16 Core Worker Relationship Specialty Start Date End Date Rehana Hernandez MD [address] [place] [address] PCP - General Family Medicine 03/26/16 Core Worker Relationship Specialty Start Date End Date Rehana Hernandez MD [address] [facility] [address] [place] [address] PCP - General Family Medicine 03/26/16 Core Worker Relationship Specialty Start Date End Date Rehana Hernandez MD [address] [facility] [address] [place] [address] PCP - General Family Medicine 03/26/16 Core Worker Relationship Specialty Start Date End Date Rehana Hernandez MD [address] [facility] [address] [place] [address] PCP - General Family Medicine 03/26/16 Core Worker Relationship Specialty Start Date End Date Rehana Hernandez MD [address] [place] [address] PCP - General Family Medicine 03/26/16 Core Worker Relationship Specialty Start Date End Date Rehana Hernandez MD [address] [place] [address] PCP - General Family Medicine 03/26/16 Core Worker Relationship Specialty Start Date End Date Rehana Hernandez MD [address] [place] [address] PCP - General Family Medicine 03/26/16 Core Worker Relationship Specialty Start Date End Date Rehana Hernandez MD [address] [place] [address] PCP - General Family Medicine 03/26/16 Core Worker Relationship Specialty Start Date End Date Rehana Hernandez MD [address] [place] [phone] PCP - General Family Medicine 12/21/21 Core Worker Relationship Specialty Start Date End Date Rehana Hernandez MD [address] [place] [phone] PCP - General Family Medicine 12/21/21 Core Worker Relationship Specialty Start Date End Date Rehana Hernandez MD [address] [place] [phone] PCP - General Family Medicine 12/21/21 Core Worker Relationship Specialty Start Date End Date Rehana Hernandez MD [address] [place] [phone] PCP - General Family Medicine 12/21/21 Core Worker Relationship Specialty Start Date End Date Rehana Hernandez MD [address] [place] [address] PCP - General Family Medicine 12/21/21 Core Worker Relationship Specialty Start Date End Date Rehana Hernandez MD [address] [place] [phone] PCP - General Family Medicine 12/21/21 Core Worker Relationship Specialty Start Date End Date Rehana Hernandez MD [address] [place] [address] PCP - General Family Medicine 12/21/21 Core Worker Relationship Specialty Start Date End Date Rehana Hernandez MD [address] [place] [address] PCP - General Family Medicine 12/21/21 Core Worker Relationship Specialty Start Date End Date Rehana Hernadnez MD [address] [place] [phone] PCP - General Family Medicine 12/21/21 Core Worker Relationship Specialty Start Date End Date Rehana Hernandez MD [address] [place] [address] PCP - General Family Medicine 12/21/21 Core Worker Relationship Specialty Start Date End Date Rehana Hernandez MD [address] [place] [address] PCP - General Family Medicine 12/21/21 Core Worker Relationship Specialty Start Date End Date Rehana Hernandez MD [address] [place] [address] PCP - General Family Medicine 12/21/21 Core Worker Relationship Specialty Start Date End Date Rehana Hernandez MD [address] [place] [address] PCP - General Family Medicine 12/21/21 Core Worker Relationship Specialty Start Date End Date Rehana Hernandez MD [address] [place] [address] PCP - General Family Medicine 12/21/21 <item><item><item> Privacy Markings (unrecogniz ed section and content) Section Author: Christelle Leon PROHIBITION ON REDISCLOSURE OF CONFIDENTIAL INFORMATION This notice accompanies a disclosure of information concerning a client made to you with the consent of such client. Section Author: Christelle Leon PROHIBITION ON REDISCLOSURE OF CONFIDENTIAL INFORMATION This notice accompanies a disclosure of information concerning a client made to you with the consent of such client. Section Author: Christelle Leon PROHIBITION ON REDISCLOSURE OF CONFIDENTIAL INFORMATION This notice accompanies a disclosure of information concerning a client made to you with the consent of such client. FOR RECORDS PERTAINING TO PATIENTS WHO ARE OR HAVE BEEN ENROLLED IN A CHEMICAL DEPENDENCY/SUBSTANCEABUSE PROGRAM, SOME INFORMATION MAY BE OMITTED. This clinical summary was aggregated from multiple sources. Caution should be exercised in using it in the provision of clinical care. This summary normalizes information from multiple sources, and as a consequence, information in this document may materially change the coding, format and clinical context of patient data. In addition, data may be omitted in some cases. CLINICAL DECISIONS SHOULD BE BASED ON THE PRIMARY CLINICAL RECORDS. [employer] [facility]. provides no warranty or guarantee of the accuracy or completeness of information in this document.
[2023-10-21] MEDS: Lactated Ringers 1,000 ML 15 ML IV (06:49)
--- NOTE | 2023-10-21 07:30 | COLBX_PTH ---
PATHOLOGY RESULTS PATIENT: JUN SHRESTHA V LOC: EN U#:[id number] AGE/SX: 57/F ROOM: RE10/21/[address]: Dr. Gustabo Moralez MD : 1965 BED: DIS: 10/21/2023 SPEC #: [id number] RECD: 10/22/23 08:29 STATUS: RAF KARLA #: [id number] ALE: 10/21/23 07:[address]: Gustabo Moralez DEPT: SURGICAL PATHOLOGY RECD BY: Gena Berman ENTERED: 10/22/23 08:30 SP TYPE: COLON BX OTHR DR: Dr. Rehana Hernandez MD Tissues: Cecum, NOS Rectum, NOS Procedures: Surgery Specimen Level IV HEADER OPERATION: Colonoscopy with biopsy PRE-OP DIAGNOSIS: Sigmoid diverticulitis TISSUE SUBMITTED: A - Biopsy submucosal lipoma at cecum, B - Biopsy rectal mucosa MICROSCOPIC DIAGNOSIS A. Cecal submucosal lipoma, biopsy: Fragments of benign colonic mucosa. See comment. B. Rectal mucosa, biopsy: Colonic mucosa with hyperplastic change. AM:anam 10/23/2023 COMMENT A. A lipomatous lesion is not identified. Clinical correlation is suggested. MICROSCOPIC DESCRIPTION Slides are reviewed. GROSS DESCRIPTION A - Received in fixative is one container labeled with the patient's name and designated biopsy submucosal lipoma at the cecum. The specimen consists of two irregular fragments of light alcala soft tissue that in aggregate measure 0.5 x 0.2 x 0.1 cm. The specimen is totally submitted in one cassette. B - Received in fixative is one container labeled with the patient's name and designated biopsy rectal mucosa. The specimen consists of two irregular fragments of light alcala soft tissue that in aggregate measure 0.6 x 0.3 x 0.1 cm. The specimen is totally submitted in one cassette. / SULMA:anam 10/22/2023 TC:5 CPT: 29949 x2
--- NOTE | 2023-10-21 07:36 | HP.PCM_ITS ---
History and Physical Date of Admission: 10/21/23 Date of Service: 08/27/23 MR#: [id number] Acct: [id number] Name: JUN HUTCHISON V Rep #: [id number] : 1965 Provider: Dr. Gustabo Moralez MD Age/Sex: 57/F Location: [facility] Status: Signed Intake Vital Signs 08/11/2312:07 Height 5 ft 3 in Intake Visit Reasons: 2WK [facility] Hosp f/u ACUTE SIGMOID DIVERTICULITIS Chief Complaint: 2week [facility] f/u acute sigmoid diverticulitis Delivery Aide Required: No Is patient in pain?: No Allergies morphine Allergy (Verified 08/27/23 15:36) RashPenicillins Allergy (Verified 08/27/23 15:36) Hivesalbuterol Adverse Reaction (Mild, Verified 08/27/23 15:36) Scratchy throat Subjective Details: Patient is a 57-year-old female who follows up from recent hospitalization for acute diverticulitis. This hospitalization concluded 08/08/2023. Today she reports that her belly feels good however, she admits that she is just now starting to add other foods to her diet and this is primarily revolved around a steady supply of applesauce and cream of wheat because these foods have been proven to be well-tolerated. She remarks that her family has commented they are concerned that she is losing weight with this limited diet. She confesses that her protein intake since her hospital stay has amounted to 2 bites of baked chicken (stopped after she felt some abdominal discomfort) and some crab meat. She also shares that she believes there was an adverse effect with her antibiotics and states that she followed up with her primary care provider who shared the suspicion that her fluoroquinolone antibiotic had caused problems for her lower extremity mobility. She relates that she has had difficulty extending her leg and experiences pain both in the back of her leg as well as over her kneecap. She reports that she is due to see an orthopedic surgeon on referral from her PCP for this issue. In total she confirms that she took 7 out of the 9 days of antibiotics prescribed (this does not count which she received as an inpatient). She denies any fevers or chills at home and she states that her bowels have been regular and soft. She confirms that she is having at least 1 bowel movement every day. Objective Details: Constitutional: Anxious Abdomen: Patient with a spandex futon that precludes visualization of her abdomen, however palpation of her abdomen reveals mild tenderness with deeper palpation across her left lower abdominal quadrant and suprapubic positions. Otherwise her exam is unremarkable. Coding Level of Care Code Off vis,est,level 3 Diagnoses Sigmoid diverticulitis K57.32 [facility] Medical History (Updated 08/27/23 @ 16:[address] Gustabo Moralez MD) Abdominal pain Anxiety Asthma Chronic kidney disease, stage 3 Chronic kidney insufficiency Former smoker Kidney disease Surgical History S/P colonoscopy s/p fibroid removal S/P hysterectomy S/P tonsillectomy and adenoidectomy Status post breast reduction Status post surgical removal of ganglion cyst Social History Smoking Status: Former smoker alcohol intake: never Assessment and Plan (No Qualifiers) Assessment and Plan (1) Sigmoid diverticulitis: Status: Acute Comment: This is a 57-year-old female who follows up after recent inpatient hospitalization for recurrent sigmoid diverticulitis. Although she reports that her abdominal pain is resolved she exhibits significant anxiety about returning to a regular diet. We discussed at length my recommendation to proceed with incorporating more protein sources and I suggested that she consider use of a protein supplement while she remains hesitant about introducing new foods. I also discussed with her the concern over her fluoroquinolone causing an extremity issue and suggested that between this and her penicillin allergy the choice for antibiotics for enteric pathogens is somewhat limited. She does report that her last adverse reaction to penicillins was as a child. She also would appear to be adequately treated if we add her inpatient antibiotic duration to her outpatient course. Indeed on exam, Mrs. Hutchison shows largely resolution of her symptoms but has some persistent left lower quadrant tenderness with deep palpation. Therefore, I advised that we wait until the new year to proceed with a diagnostic colonoscopy. She is in agreement and states that she is trying to do anything in her control to mitigate her risk for recurrence of her pain or for need for surgery. Plan: ? Recommended inclusion of more protein macronutrients in her dietary intake ? Recommended initiation of probiotic ? Recommended gradual return to some dietary fiber ? Diagnostic colonoscopy October 2023 with 2-day bowel prep (instructions given), however, date still to be set I have examined the patient and the H&P has been reviewed. There are no clinical changes since date of exam. Patient confirms that she has had no further abdominal pain since our last visit. She also confirms that she completed a prep in anticipation of today's procedure and that her output is now clear. We reviewed procedure and post procedure expectations?including follow-up of result s. All questions were answered to patient's satisfaction. Will now proceed to the endoscopy suite for diagnostic colonoscopy as discussed in further detail above.
--- NOTE | 2023-10-21 08:33 | OP.COLON_ITS ---
Patient Name: Azeb Hutchison Procedure Date: 10/21/2023 7:14 AM Date of : 1965 Age: 57 Procedure: Colonoscopy Indications: Follow-up of diverticulitis Providers: Gustabo Moralez MD Referring MD: Gustabo Moralez MD Medicines: See the Anesthesia note for documentation of the administered medications Patient Profile: Refer to note in patient chart for documentation of history and physical. Last Colonoscopy: 6 years ago. Complications: No immediate complications. Estimated blood loss: Minimal. Procedure: Pre-Anesthesia Assessment: - The heart rate, respiratory rate, oxygen saturations, blood pressure, adequacy of pulmonary ventilation, and response to care were monitored throughout the procedure. After I obtained informed consent, the scope was passed under direct vision. Throughout the procedure, the patient's blood pressure, pulse, and oxygen saturations were monitored continuously. The colonoscope was introduced through the anus and advanced to the cecum, identified by appendiceal orifice and ileocecal valve. The colonoscopy was performed without difficulty. The patient tolerated the procedure well. The quality of the bowel preparation was adequate to identify polyps. Scope In: 7:50:36 AM Scope Withdrawal Time 0 hours 19 minutes 5 seconds Scope Out: 8:14:04 AM Total Procedure Duration Time 0 hours 23 minutes 28 seconds Findings: Many small and large-mouthed diverticula were found in the sigmoid colon and hepatic flexure. No biopsies or other specimens were collected for this exam. There was a medium-sized lipoma, 25 mm in diameter, in the cecum. Biopsies were taken with a cold forceps for histology. Estimated blood loss was minimal. A 5 mm polypoid lesion was found in the rectum. The lesion was semi-sessile. No bleeding was present. Biopsies were taken with a cold forceps for histology. Estimated blood loss was minimal. Internal hemorrhoids were found during retroflexion. The hemorrhoids were Grade I (internal hemorrhoids that do not prolapse). No biopsies or other specimens were collected for this exam. Skin tags were found on perianal exam. Impression: - Diverticulosis in the sigmoid colon and at the hepatic flexure. No specimens collected. - Medium-sized lipoma in the cecum. Biopsied. - Likely benign polypoid lesion in the rectum. Biopsied. - Internal hemorrhoids. No specimens collected. - Perianal skin tags found on perianal exam. Recommendation: - Discharge patient to home (via wheelchair). - High fiber diet today. - Continue present medications. - Await pathology results. - Repeat colonoscopy date to be determined after pending pathology results are reviewed for surveillance based on pathology results. - Telephone my office for pathology results in 1 week. Procedure Code(s): --- Professional --- 45766, Colonoscopy, flexible; with biopsy, single or multiple Diagnosis Code(s): --- Professional --- K64.0, First degree hemorrhoids D17.5, Benign lipomatous neoplasm of intra-abdominal organs D49.0, Neoplasm of unspecified behavior of digestive system K64.4, Residual hemorrhoidal skin tags K57.32, Diverticulitis of large intestine without perforation or abscess without bleeding K57.30, Diverticulosis of large intestine without perforation or abscess without bleeding CPT copyright 2021 [employer]. All rights reserved. The codes documented in this report are preliminary and upon scout executive review may be revised to meet current compliance requirements. Gustabo Moralez MD 10/21/2023 8:32:02 AM This report has been signed electronically. Number of Addenda: 0 Note Initiated On: 10/21/2023 7:14 AM
--- NOTE | 2023-10-21 08:33 | OP.CCLET_ITS ---
10/21/2023 Rehana Hernandez [address] [place] [address] Re : Colonoscopy procedure for Azeb Hutchison Dear Dr. Hernandez This procedure was performed on Saturday, October 21, 2023. My impressions and recommendations are as follows: Impressions : - Diverticulosis in the sigmoid colon and at the hepatic flexure. No specimens collected. - Medium-sized lipoma in the cecum. Biopsied. - Likely benign polypoid lesion in the rectum. Biopsied. - Internal hemorrhoids. No specimens collected. - Perianal skin tags found on perianal exam. Recommendations : - Discharge patient to home (via wheelchair). - High fiber diet today. - Continue present medications. - Await pathology results. - Repeat colonoscopy date to be determined after pending pathology results are reviewed for surveillance based on pathology results. - Telephone my office for pathology results in 1 week. My findings are described in the full procedure note, which is enclosed. If I can be of further assistance, please feel free to contact me at Doctor phone number(s): , Work: . Sincerely, Gustabo Moralez MD 10/21/2023 8:32:02 AM This report has been signed electronically.
== END 2023-10-21 09:31 | disposition home or self-care (01) ==
LOC: EN 05:59 → AC 06:00
PROVIDERS: PCP Family Medicine; Referring Provider Family Medicine; Visit Provider Surgery
PROC: 0DJD8ZZ Inspection of Lower Intestinal Tract, Via Natural or Artificial Opening Endoscopic (ICD-10-PCS; CPT 45378; principal; 2023-10-21 07:25)
DX: K57.32 Diverticulitis of large intestine without perforation or abscess without bleeding (principal); N18.30 Chronic kidney disease, stage 3 unspecified; Z87.891 Personal history of nicotine dependence; K64.0 First degree hemorrhoids; J45.909 Unspecified asthma, uncomplicated; D17.5 Benign lipomatous neoplasm of intra-abdominal organs; K62.1 Rectal polyp; K64.4 Residual hemorrhoidal skin tags; Z87.19 Personal history of other diseases of the digestive system
CPT/HCPCS: 45380; 88305; J7120; J2405

== ENCOUNTER → 2024-01-19 | Outpatient (CLI) | payer MEDICAID, SELFPAY ==
--- NOTE | 2024-01-19 15:51 | BI_ITS ---
MAMMOGRAPHY - BILATERAL SCREENING REASON FOR EXAM: Female, 58 years old. Routine annual screening examination. PERTINENT HISTORY: Non-contributory. History of prior bilateral breast reduction surgery as well as right stereotactic breast biopsy. TECHNIQUE: Digital bilateral breast cori (3D mammographic acquisition) in the CC and MLO projections. 2-D mediolateral oblique (MLO) and craniocaudad (CC) views of both breasts were obtained. CAD: Full Field Digital Mammography with Computer Added Detection was performed. COMPARISON: Comparison is made with prior study dated January 16, 2023 and January 03, 2022. FINDINGS: Breast Composition: There are scattered areas of fibroglandular density. There are no dominant masses or suspicious calcifications. A tissue clip marker is seen in the anterior upper slightly lateral aspect of the right breast. A tissue clip marker is also seen within a tiny nodule in the retroareolar region of the right breast. Stable small benign-appearing bilateral axillary lymph nodes. No other significant abnormalities are identified. There has been no significant change since the prior study. BI/SCRN MAMM (CAD)W/CORI BILAT IMPRESSION: Stable bilateral screening mammogram. Yearly follow-up mammogram recommended. (A) ASSESSMENT CATEGORY: BIRADS Category 2: Benign. A letter regarding these results will be sent to the patient by the facility within 30 days. Approximately 10% of breast cancers are not detected by mammography. A normal mammogram should not delay biopsy of a clinically suspicious abnormality. [id number] Electronically Signed: Brandon Burks MD at 8:14 EDT ,
== END | disposition home or self-care (01) ==
LOC: OPBI 15:51
PROVIDERS: PCP Family Medicine; Referring Provider Family Medicine; Visit Provider Family Medicine
DX: Z12.31 Encounter for screening mammogram for malignant neoplasm of breast (principal)
CPT/HCPCS: 77063; 77067

== ENCOUNTER → 2024-11-26 | Outpatient (CLI) | payer BC, SELFPAY ==
--- NOTE | 2024-11-26 10:05 | RAD_ITS ---
PROCEDURE: LEFT FOOT, THREE VIEWS REASON FOR EXAM: Fourth and Fifth toe pain. Left foot hit a door frame. TECHNIQUE: Three view(s) of left foot. COMPARISON: None. FINDINGS: No fractures, dislocations, or subluxations. A small ossicle adjacent to the distal 4th and 5th metatarsals. Soft tissues are unremarkable. RAD/Foot min 3 Views IMPRESSION: No acute osseous abnormalities. Reading Location: [facility]
== END | disposition home or self-care (01) ==
LOC: MTRAD 10:02
PROVIDERS: PCP Family Medicine; Referring Provider Family Medicine; Visit Provider Family Medicine
DX: S99.922A Unspecified injury of left foot, initial encounter (principal); X58.XXXA Exposure to other specified factors, initial encounter
CPT/HCPCS: 73630

== ENCOUNTER → 2025-01-19 | Outpatient (CLI) | payer BC, SELFPAY ==
--- NOTE | 2025-01-19 12:30 | BI_ITS ---
EXAM: SCRN MAMM (CAD)W/CORI BILAT 01/19/2025 CLINICAL HISTORY: F, Age 59 y/o , SCREENING TECHNIQUE: Bilateral screening digital breast tomosynthesis with 2D and 3D images. Computer aided detection. COMPARISON: Prior exam(s) dated 01/19/2024, 01/16/2023. FINDINGS: TISSUE DENSITY: The breast tissue is composed of scattered area of fibroglandular density. Bilateral Breast Mammographic Findings: No significant masses, calcifications or other abnormalities are identified. BI/SCRN MAMM (CAD)W/CORI BILAT IMPRESSION: Right Breast: BIRADS 1 NEGATIVE. Left Breast: BIRADS 1 NEGATIVE. OVERALL FINAL ASSESSMENT: BIRADS 1 NEGATIVE. RECOMMENDATION: Routine annual follow-up in 1 Year A letter with findings and recommendations will be mailed to the patient. Reading Location: [id number]
== END | disposition home or self-care (01) ==
LOC: OPBI 12:29
PROVIDERS: PCP Family Medicine; Referring Provider Family Medicine; Visit Provider Family Medicine
DX: Z12.31 Encounter for screening mammogram for malignant neoplasm of breast (principal)
CPT/HCPCS: 77063; 77067

== ENCOUNTER → 2025-07-22 | Outpatient (CLI) | payer BC, SELFPAY ==
--- NOTE | 2025-07-22 15:38 | RAD_ITS ---
PROCEDURE: SHOULDER MIN 2 VIEWS 07/22/2025 REASON FOR EXAM: SHOULDER PAIN TECHNIQUE: Procedure Code: RADSH Modality: DX Procedure: SHOULDER MIN 2 VIEWS Laterality: FINDINGS: No evidence of acute fracture or dislocation. Acromioclavicular joint space narrowing suggestive of mild osteoarthrosis. The left lung apex is clear. RAD/Shoulder min 2 Views IMPRESSION: No acute osseous abnormalities. Mild acromioclavicular osteoarthrosis. Reading Location: [id number]
--- OUTSIDE RECORDS SUMMARY | 2025-07-22 15:53 | XMS RPT_ITS | CCD ---
Author Organization [facility] Care Team Providers Care Reservations Manager Name Role Phone Rehana Hernandez Unavailable [phone] Tyrone CABRERA, Zen Caceres Unavailable Vera Carr Unavailable Unavailabl Vera Kim Unavailable Unavailabl e Unavailable Primary Care Provider Unavaildes Hernandez MD, Rehana Jeremy Primary Care Provider Free, Text Entry Unavailable Unavailable Jose Cordero Unavailable RASHAD BLANCO Attending Unavailable JOLLIFF, REHANA JEREMY Primary Care Unavailable KENYA DAVILA Attending Unavailable JOLLIFF, REHANA JEREMY Primary Care Unavailable EXTENXIMENA Attending Unavailable JOLLIFF, REHANA JEREMY Primary Care Unavailable EXTENXIMENA Attending Unavailable JOLLIFF, REHANA JEREMY Primary Care Unavailable EXTENXIMENA Attending Unavailable JOLLIFF, REHANA JEREMY Primary Care Unavailable Exten Ximena CABRERA Unavailable JARVIS SHORT Attending Unavailable JOLLIFF, REHANA JEREMY Primary Care Unavailable ROGELIO SHAW Admitting Unavailable [facility] Consulting Unavaana lable XIMENA JOHN Consulting Unavailable XIMENA JOHN Attending Unavailable XIMENA JOHN Referring Unavailable JOLLIFF, REHANA JEREMY Primary Care Unavailable XIMENA JOHN Attending Unavailable XIMENA JOHN Referring Unavailable JOLLIFF, REHANA JEREMY Primary Care Unavailable XIMENA JOHN Admitting Unavailable SANDY MANRIQUE Attending Unavailable EXTENXIMENA Referring Unavailable JOLLIFF, REHANA JEREMY Primary Care Unavailable XIMENA JOHN Admitting Unavailable DEBRA ANAND Attending Unavailable EXTENXIMENA Referring Unavailable JOLLIFF, REHANA JEREMY Primary Care Unavailable EXTEN, XIMENA BOWEN Admitting Unavailable MILENA YANCEY Attending Unavailable EXTEN, XIMENA BOWEN Referring Unavailable JOLLIFF, REHANA JEREMY Primary Care Unavailable EXTEN, XIMENAMAXIM BROE Admitting Unavailable SANDY MANRIQUE Attending Unavailable EXTEN, XIMENA BOWEN Referring Unavailable JOLLIFF, REHANA JEREMY Primary Care Unavailable FANELLO, KENYA GONZALEZ Attending Unavailable FANELLO, KENYA GONZALEZ Referring Unavailable JOLLIFF, REHANA JEREMY Primary Care Unavailable EXTEN, XIMENAMAXIM BROE Admitting Unavailable SANDY MANRIQUE Attending Unavailable EXTEN, XIMENA BOWEN Referring Unavailable JOLLIFF, REHANA JEREMY Primary Care Unavailable EXTEN, XIMENA BOWEN Admitting Unavailable HILARIASANDY ALVAREZ Attending Unavailable EXTEN, XIMENA BOWEN Referring Unavailable JOLLIFF, REHANA JEREMY Primary Care Unavailable EXTEN, XIMENA BOWEN Admitting Unavailable CELY REYES Attending Unavailable EXTEN, XIMENA BOWEN Referring Unavailable JOLLIFF, REHANA JEREMY Primary Care Unavailable EXTEN, XIMENA BOWEN Admitting Unavailable SANDY MANRIQUE Attending Unavailable EXTEN, XIMENA BOWEN Referring Unavailable JOLLIFF, REHANA JEREMY Primary Care Unavailable EXTEN, XIMENA BOWEN Admitting Unavailable NI VAN Attending Unavailable EXTEN, XIMENA BOWEN Referring Unavailable JOLLIFF, REHANA JEREMY Primary Care Unavailable EXTEN, XIMENA BOWEN Admitting Unavailable MILENA YANCEY Attending Unavailable EXTEN, XIMENA BOWEN Referring Unavailable JOLLIFF, REHANA JEREMY Primary Care Unavailable EXTEN, XIMENA BOWEN Admitting Unavailable SANDY MANRIQUE Attending Unavailable EXTEN, XIMENA BOWEN Referring Unavailable JOLLIFF, REHANA JEREMY Primary Care Unavailable EXTEN, XIMENA BOWEN Admitting Unavailable SANDY MANRIQUE Attending Unavailable EXTEN, XIMENA BOWEN Referring Unavailable JOLLIFF, REHANA JEREMY Primary Care Unavailable EXTEN, XIMENA BOWEN Admitting Unavailable DEBRA ANAND Attending Unavailable EXTEN, XIMENA BOWEN Referring Unavailable JOLLIFF, REHANA JEREMY Primary Care Unavailable EXTEN, XIMENA BOWEN Admitting Unavailable SANDY MANRIQUE Attending Unavailable EXTEN, XIMENA BOWEN Referring Unavailable JOLLIFF, REHANA JEREMY Primary Care Unavailable EXTEN, XIMENAMAXIM BROE Admitting Unavailable HILARIASANDY ALVAREZ Attending Unavailable EXTEN, XIMENA BOWEN Referring Unavailable JOLLIFF, REHANA JEREMY Primary Care Unavailable EXTEN, XIMENA BOWEN Admitting Unavailable CHAVATZNI ROLAND Attending Unavailable EXTEN, XIMENA BOWEN Referring Unavailable JOLLIFF, REHANA JEREMY Primary Care Unavailable EXTEN, XIMENA BOWEN Admitting Unavailable HALM, DEBRA Attending Unavailable EXTEN, XIMENA BOWEN Referring Unavailable JOLLIFF, REHANA JEREMY Primary Care Unavailable EXTEN, XIMENA BOWEN Admitting Unavailable CHAVANI WOMACK Attending Unavailable EXTEN, XIMENA BOWEN Referring Unavailable JOLLIFF, REHANA JEREMY Primary Care Unavailable EXTEN, XIMENA BOWEN Admitting Unavailable HILARIA, SANDY Lu Attending Unavailable EXTEN, XIMENA BOWEN Referring Unavailable JOLLIFF, REHANA JEREMY Primary Care Unavailable EXTEN, XIMENA BOWEN Admitting Unavailable HILARIA, SANDY Lu Attending Unavailable EXTEN, XIMENA BOWEN Referring Unavailable JOLLIFF, REHANA JEREMY Primary Care Unavailable EXTEN, XIMENA BOWEN Admitting Unavailable HALM, DEBRA Attending Unavailable EXTEN, XIMENA BOWEN Referring Unavailable JOLLIFF, REHANA JEREMY Primary Care Unavailable EXTEN, XIMENA BOWEN Admitting Unavailable HILARIA, SANDY Lu Attending Unavailable EXTEN, XIMENA BOWEN Referring Unavailable JOLLIFF, REHANA JEREMY Primary Care Unavailable EXTEN, XIMENA BOWEN Admitting Unavailable HALM, DEBRA Attending Unavailable EXTEN, XIMENA BOWEN Referring Unavailable JOLLIFF, REHANA JEREMY Primary Care Unavailable JOLLIFF, REHANA JEREMY Primary Care Unavailable EGAL, JESSIKA WREN Attending Unavailabl e EXTEN, XIMENA BOWEN Admitting Unavailable HILARIA, SANDY Lu Attending Unavailable EXTEN, XIMENA BOWEN Referring Unavailable JOLLIFF, REHANA JEREMY Primary Care Unavailable David CABRERA, Rehana [facility] Primary Care Provider Rehana Hernandez MD S Primary Care Provider David CABRERA, Rehana S Primary Care Provider Dr. Rehana Hernandez S Primary Care Provider Dr. Alexis Shultz Emergency Provider [phone] Lizbeth Gomes Attending Provider Unavail able Dr. Rehana Hernandez Primary Care Provider Dr. Alexis Shultz Emergency Provider Dr. Lizbeth Gomes Attending Provider Unavail able Dr. Lizbeth Gomes Admit Provider UnavailDr. Lizbeth Christina Other Provider UnavailDr. Rashad Carrillo Other Provider Dr. Lizbeth aGston Attending Provider Unavailable Dr. Lizbeth Gaston Other Provider Unavailable Dr. Rashad Moralez Attending Provider Dr. Zen Hansen Attending Provider Dr. Letha Hebert Other Provider Dr. Letha Hebert Attending Provider HUNG Christianson Attending Provider Dr. Letha Hebert Referring Provider Dr. Rashad Moralez Referring Provider Dr. Rehana Hernandez Referring Provider Dr. Rehana Hernandez Primary Care Provider Dr. Rehana Hernandez Referring Provider Dr. Rashad Moralez Attending Provider Dr. Rashad Moralez Other Provider NANETTE, JUSTIN Referring Unavailable JOLLIFF, REHANA S Primary Care Unavailable NANETTE, JUSTIN Attending Unavailable NANETTE, JUSTIN Referring Unavailable JOLLIFF, REHANA S Primary Care Unavailable NANETTE JUSTIN Attending Unavailable Unavailable Primary Care Provider UnavailDr. Rehana Benites MD Primary Care Provider Dr. Rehana Hernandez MD Attending Provider Dr. Rehana Hernandez MD Referring Provider Rehana Hernandez S Referring Unavailable Jolliff, Rehana S Attending Unavailable Jolliff, Rehana S Primary Care Unavailable Jolliff, Rehana S Primary Care Unavailable Jolliff, Rehana S Referring Unavailable Jolliff, Rehana S Attending Unavailable Rehana Hernandez MD Primary Care Provider Blood, Gurpreet Unavailable Unavailable Stone DDS, Atul B Unavailable TOM CROSS Admitting Unavailable TOM CROSS Referring Unavailable TOM CROSS Attending Unavailable JOLLIFF, REHANA S Primary Care Unavailable CRISELDA, RUYD Attending Unavailable CRISELDA, RUDY Referring Unavailable JOLLIFF, REHANA S Primary Care Unavailable CRISELDA, RUDY Attending Unavailable JOLLIFF, REHANA S Primary Care Unavailable SELF, SELF Referring Unavailable CRISELDA, RUDY Attending Unavailable CRISELDA, RUDY Referring Unavailable JOLLIFF, REHANA S Primary Care Unavailable JOLLIFF, REHANA S Primary Care Unavailable NANETTE, JUSTIN Referring Unavailable NANETTE, JUSTIN Attending Unavailable TAY, TOM L Referring Unavailable TAY, TOM L Attending Unavailable JOLLIFF, REHANA S Primary Care Unavailable TAY, TOM L Referring Unavailable TAY, TOM L Attending Unavailable JOLLIFF, REHANA S Primary Care Unavailable RIEHM, DEBRA L Attending Unavailable JOLLIFF, REHANA S Primary Care Unavailable SELF, SELF Referring Unavailable CRISELDA, RUDY Attending Unavailable JOLLIFF, REHANA S Referring Unavailable JOLLIFF, REHANA S Primary Care Unavailable CRISELDA, RUDY Attending Unavailable CRISELDA, RUDY Referring Unavailable JOLLIFF, REHANA S Primary Care Unavailable RIEHM, DEBRA L Attending Unavailable JOLLIFF, REHANA S Primary Care Unavailable SELF, SELF Referring Unavailable RIEHM, DEBRA L Referring Unavailable TAY, TOM L Attending Unavailable JOLLIFF, REHANA S Primary Care Unavailable CRISELDA, RUDY Attending Unavailable JOLLIFF, REHANA S Primary Care Unavailable JOLLIFF, REHANA S Referring Unavailable JOLLIFF, REHANA S Referring Unavailable JOLLIFF, REHANA S Primary Care Unavailable CRISELDA, RUDY Attending Unavailable JOLLIFF, REHANA S Primary Care Unavailable CRISELDA, RUDY Attending Unavailable CRISELDA, RUDY Referring Unavailable JOLLIFF, REHANA S Primary Care Unavailable CRISELDA, RUDY Referring Unavailable CRISELDA, RUDY Attending Unavailable JOLLIFF, REHANA S Referring Unavailable CRISELDA, RUDY Attending Unavailable JOLLIFF, REHANA S Primary Care Unavailable JOLLIFF, REHANA S Primary Care Unavailable LIZBETH UP Attending Unavailable Allergies Allergy Classification Reported Allergen(s) Allergy Type Date of Onset Reaction(s) Facility Albuterol (1 source) Albuterol Drug Allergy 2 [facility] DULoxetine (1 source) DULoxetine Drug Allergy 3 [facility] Opioid Agonists (2 sources) Codeine Drug Allergy 2 [facility] Penicillins (antibiotic) (1 source) Penicillins Drug Allergy 2 [facility] (20 sources) albuterol; Translations: [ALBUTEROL] drug allergy 2 Shortness Of Breath [facility] Work Phone: Comment on above: Scratchy throat (20 sources) codeine; Translations: [CODEINE] drug allergy 2 Other [facility] Work Phone: (2 sources) morphine drug allergy 2 [facility] Work Phone: (20 sources) Penicillins; Translations: [PENICILLINS] drug allergy 2 Rash [facility] Work Phone: (20 sources) Morphine; Translations: [MORPHINE] Drug Allergy 2 Hives/Urticaria , Rash [facility] (3 sources) Penicillin Drug Allergy Rash [facility] (1 source) Albuterol Drug Allergy 3 difficulty breathing [facility] Work Phone: (1 source) Codeine Drug Allergy 3 itching [facility] Work Phone: (1 source) Morphine Drug Allergy 3 itching [facility] Work Phone: (1 source) Penicillin G Drug Allergy 3 Rash [facility] Work Phone: (20 sources) DULoxetine Drug Allergy 3 [employer] (10 sources) Lisinopril Drug Allergy 3 [facility] Comment on above: ELEVATED BP (20 sources) Lisinopril Propensity to adverse reactions to drug 3 [facility] (4 sources) Ibuprofen Drug Allergy 4 [facility] (1 source) Lisinopril Drug Allergy 4 [facility] (1 source) Morphine Drug Allergy 4 [facility] Medications Current Medications Medication Drug Class(es) Dates Sig (Normalized) Sig (Original) acetaminophen 325 mg / HYDROcodone bitartrate 5 mg oral tablet (5 sources) Opioid Agonist Start: 10-21-2024 End: 10-26-2024 take 1-2 tablets by mouth every four to six hours as needed for pain hydroCODone-acetam inophen 5-325 MG tablet Indications: S/P left knee arthroscopy 1-2 tabs PO q4-6 hours PRN pain 30 tablet 10/21/2024 Active Start: 10-21-2024 End: 10-21-2024 take 1-2 tablets by mouth every four hours as needed 1-2 tablet, Oral, EVERY 4 HOURS NEEDED, Starting on Fri10/21/24 at 0930, Until Fri10/21/24 at 1318, Moderate Pain, Post-op/Post-Proc Start: 07-02-2024 End: 07-02-2024 1 tablet, Oral, ONCE, 1 dose , On Fri07/02/24 at 0230 Start: 07-31-2021 End: 08-01-2021 take 1 tablet by mouth every four hours as needed 1 tablet, Oral, Every 4 hours PRN, moderate to severe pain, Starting on Fri07/31/21 at 1738 [id number] actuat albuterol 0.09 mg/actuat metered dose inhaler (7 sources) beta2-Adrenergic Agonist Start: 08-08-2023 Albut fariha Sulfate 90 mcg/actuation HFA aerosol inhaler Active 2 NMA INHALATION Q4H as needed for shortness of breath or wheezing August 08, 2023 12:00am Start: 08-08-2023 Albuterol Sulf ate Active 2 INH INHALATION Q4H August 08, 2023 12:00am Start: 12-17-2018 take 1-2 puff(s) by inhalation every four to six hours as needed for wheezing albuterol 108 (90 Base) MCG/ACT Aero Soln inhaler Indications: Influenza A 1-2 puffs every 4-6 hours as needed for SOB, chest tightness, wheezing with spacer 1 Inhaler 0 12/17/2018 Active Start: 12-17-2018 End: 10-24-2022 take 1-2 puff(s) by inhalation every four to six hours as needed for wheezing albuterol 108 (90 Base) MCG/ACT Aero Soln inhaler Indications: Influenza A 1-2 puffs every 4-6 hours as needed for SOB, chest tightness, wheezing with spacer 1 Inhaler 0 12/17/2018 10/24/2022 Discontinued azithromycin 250 mg oral tablet (1 source) Macrolide Antimicrobial Start: 09-21-2023 End: 09-26-2023 Azithromycin 250 MG tablet Indications: Acute non-recurrent maxillary sinusitis Take by mouth 2 tablets (500 mg) on Day 1, then 1 tablet (250 mg) daily on Days 2-5 6 tablet 0 09/21/2023 09/26/2023 Active brompheniramine maleate 0.4 mg/ml / dextromethorphan hydrobromide 2 mg/ml / pseudoephedrine hydrochloride 6 mg/ml oral solution (2 sources) alpha-Adrenergic Agonist, Uncompetitive M-qmxocd-W-aspartat e Receptor Antagonist, Sigma-1 Agonist Start: 10-01-2021 take 5 mL by mouth four times daily brompheniramine/ps eudoephedrine/dext romethorphan 7kg-01pa-54td/5 mL oral syrup ; 5 milliliter(s) orally 4 times a day Quantity: 200 Refills: 0 Ordered: 01-Oct-2021 Jose Cordero Start: 01-Oct-2021 Generic Substitution Allowed Comments: May cause drowsiness. Alcohol may intensify this effect. Use care when operating dangerous machinery.Obtain medical advice before taking any non-prescription drugs as some may affect the action of this medication. Comment on above: May cause drowsiness . Alcohol may intensify this effect. Use care when operating dangerous machinery.Obtain medical advice before taking any non-prescription drugs as some may affect the action of this medication. C,E,Zinc,Copper 18-Ogqlb3a-Zlx (9 sources) Start: 07-28-2019 C,E,Zinc,Copper 48-Vofcn1r-Irq Active 1 EACH PO DAILY July 28, 2019 2:18pm Start: 07-28-2019 End: 08-07-2023 C,E,Zinc,Copper 71-Tnlhf5f-B ut Discontinued 1 EACH PO DAILY July 27, 2019 11:00pm August 07, 2023 2:19pm Start: 07-28-2019 End: 08-07-2023 C,E,Zinc,Copper 18-Utbsv2r-N ut Discontinued 1 EACH PO DAILY July 28, 2019 12:00am August 07, 2023 3:19pm Start: 07-28-2019 C,E,Zinc,Coppe r 51-Ypuzm7o-Kga Active 1 EACH PO DAILY July 27, 2019 11:00pm Start: 07-28-2019 C,E,Zinc,Coppe r 19-Iqnma7l-Wls Active 1 EACH PO DAILY July 28, 2019 12:00am 24 hr calcifediol 0.03 mg extended release oral capsule (17 sources) Start: 11-06-2022 End: 02-12-2023 take 1 capsule by mouth once Calcifediol ER (Rayaldee) 30 MCG Cap CR Take 1 capsule by mouth every Friday, Friday and Friday. 90 capsule 0 02/12/2023 Active Calcifediol ER ( Rayaldee) 30 MCG Cap CR Take by mouth twice a week. Active calcitriol 0.05923 mg oral capsule (9 sources) Vitamin D3 Analog Start: 01-10-2025 End: 04-05-2026 take 1 capsule by mouth once daily calcitRIOL 0.25 MCG capsule Take 1 capsule by mouth daily. 90 capsule 3 04/05/2025 04/05/2026 Active Start: 10-28-2023 End: 06-24-2024 take 1 capsule by mouth once daily calcitRIOL 0.25 MCG capsule Take 1 capsule by mouth daily. 90 capsule 3 10/28/2023 06/24/2024 Discontinued ciprofloxacin 500 mg oral tablet (11 sources) Quinolone Antimicrobial Start: 08-12-2023 take 1 tablet by mouth twice daily Ciprofloxacin Hcl (Cipro) 500 mg tablet Active 500 MG PO TWICE A DAY 18 August 12, 2023 12:00am Start: 07-21-2020 End: 08-07-2023 take 1 tablet by mouth twice daily Ciprofloxacin Hcl 500 MG tablet Discontinued 500 mg PO TWICE A DAY July 21, 2020 12:00am August 07, 2023 3:19pm dapagliflozin 10 mg oral tablet (20 sources) Sodium-Glucose Cotransporter 2 Inhibitor Start: 12-14-2024 take 1 tablet by mouth once daily dapagliflozin (Farxiga) 10 MG tablet Take 1 tablet by mouth daily. 90 tablet 3 12/14/2024 Active Start: 04-03-2023 End: 12-24-2023 take 1 tablet by mouth at bedtime Dapagliflozin Propanediol (Dapagliflozin Propanediol 10 Mg Tablet) 10 mg tablet Active 10 mg PO AT BEDTIME August 07, 2023 12:00am Start: 12-04-2022 take 1 tablet by rahul th once daily dapagliflozin (Farxiga) 10 MG tablet Take 1 tablet by mouth daily. 90 tablet 3 12/04/2022 Active diphenhydrAMINE hydrochloride 25 mg oral tablet (14 sources) Histamine-1 Receptor Antagonist Start: 05-15-2023 End: 05-15-2023 diphenhydrAMINE (BENADRYL) injection 25 mg Start: 05-15-2023 End: 06-24-2024 take 1 tablet by mouth every six hours as needed diphenhydrAMINE 25 MG tablet Take 1 tablet by mouth every 6 hours as needed for Itching. 30 tablet 05/15/2023 06/24/2024 Discontinued (Patient Preference) 0.4 ml enoxaparin sodium 100 mg/ml prefilled syringe (11 sources) Low Molecular Weight Heparin Start: 08-04-2021 End: 09-03-2021 inject 0.4 mL by subcutaneous injection once daily enoxaparin (LOVENOX) 40 mg/0.4 mL Syrg Inject 0.4 mL (40 mg total) under the skin daily Start: 08/04/21. 12 mL 0 08/04/2021 09/03/2021 Active Start: 08-02-2021 End: 08-03-2021 inject 40 mg by subcutaneous injection once daily 40 mg, Subcutaneous, Daily, First dose on Yoli 08/02/21 at 0900 Administer in abdomen unless otherwise directed by prescriber. Notify physician if patient refuses. Indication: VTE Prophylaxis Start: 07-31-2021 End: 08-01-2021 inject 40 mg by subcutaneous injection once daily 40 mg, Subcutaneous, Daily, First dose on 07/31/21 at 2100 Administer in abdomen unless otherwise directed by prescriber. Notify physician if patient refuses. Indication: VTE Prophylaxis [id number] 0.3 ml EPINEPHrine 1 mg/ml auto-injector (4 sources) alpha-Adrenergic Agonist, beta-Adrenergic Agonist, Catecholamine Start: 07-26-2024 EPINEPHrine 0.3 MG/0.3ML Solution Auto-injector injection Use as directed for acute allergic reaction. 07/26/2024 Active ibuprofen 800 mg oral tablet (20 sources) Nonsteroidal Anti-inflammatory Drug Start: 09-18-2021 take 1 tablet by mouth every eight hours as needed for pain ibuprofen (ADVIL,MOTRIN) 800 MG tablet Indications: Ankle fracture, bimalleolar, closed, right, initial encounter Take 1 (one) tablet (800 mg total) by mouth every 8 (eight) hours as needed for pain . 56 tablet 09/18/2021 Active Start: 08-08-2021 End: 09-18-2021 take 1 tablet by mouth every six hours as needed for pain ibuprofen (ADVIL,MOTRIN) 800 MG tablet Indications: Ankle fracture, bimalleolar, closed, right, initial encounter Take 1 (one) tablet (800 mg total) by mouth every 6 (six) hours as needed for pain . 56 tablet 0 08/08/2021 09/18/2021 Discontinued (Reorder) Start: 07-31-2021 End: 07-31-2021 ibuprofen (ADVIL,MOTRIN) tab let 400 mg Start: 07-09-2012 End: 10-24-2022 ibuprofen 800 MG Tab ibuprof en IBUPROFEN 800 MG TABS three times a day IBUPROFEN [id number] Tonya Moss 07-09-2012 [facility] ([id number]) 0 07/09/2012 10/24/2022 Discontinued levalbuterol 0.417 mg/ml inhalation solution (20 sources) beta2-Adrenergic Agonist Start: 08-07-2023 Leval buterol Hcl 1.25 mg/3 mL solution for nebulization Active 1.25 mg INHALATION NEEDED August 07, 2023 12:00am Start: 05-15-2023 levalbuterol 1 .25 MG/3ML Nebu Soln as needed. 05/15/2023 Active Start: 07-09-2012 End: 10-24-2022 levalbuterol 1.25 MG/3ML Neb u Soln levalbuterol XOPENEX 1.25 MG/3ML NEBU every 6-8 hrs LEVALBUTEROL HCL [id number] Tonya Moss 07-09-2012 [facility] ([id number]) 0 07/09/2012 10/24/2022 Discontinued Start: 07-09-2012 XOPENEX 1.25 M G/3ML NEBU every 6-8 hrs LEVALBUTEROL HCL [id number] Tonya Moss lifitegrast 50 mg/ml ophthalmic solution (2 sources) Lymphocyte Function-Associated Antigen-1 Antagonist Start: 03-08-2025 take 1 drop(s) into the eye(s) twice daily Xiidra 5 % Solution ophthalmic solution Place 1 drop in both eyes 2 times daily. 03/08/2025 Active metroNIDAZOLE 500 mg oral tablet (11 sources) Nitroimidazole Antimicrobial Start: 08-12-2023 take 500 mg by mouth three times daily Metronidazole Active 500 MG PO THREE TIMES A DAY 02 07August 12, 2023 12:00am Start: 07-21-2020 End: 08-07-2023 take 1 tablet by mouth every eight hours Metronidazole 500 MG tablet Discontinued 500 mg PO Q8H July 21, 2020 12:00am August 07, 2023 3:19pm Vn-Hfy-Kypdd-Calcium Carb-K1 (7 sources) Start: 07-28-2019 Xs-Dld-Atoru-C alcium Carb-K1 Active 1 EACH PO DAILY July 28, 2019 2:18pm Start: 07-28-2019 My-Ndn-Ltjco-C alcium Carb-K1 Active 1 EACH PO DAILY July 27, 2019 11:00pm Start: 07-28-2019 Ff-Awr-Gkija-C alcium Carb-K1 Active 1 EACH PO DAILY July 28, 2019 12:00am oseltamivir 75 mg oral capsule (1 source) Neuraminidase Inhibitor Start: 12-17-2018 End: 12-22-2018 take 1 capsule by mouth twice daily oseltamivir 75 MG Cap capsule Indications: Influenza A Take 1 capsule by mouth 2 times daily for 5 days. 10 capsule 0 12/17/2018 12/22/2018 Active oxyCODONE hydrochloride 5 mg oral tablet (12 sources) Opioid Agonist Start: 08-08-2021 End: 08-15-2021 oxyCODONE (Roxicodone) 5 MG immediate release tablet Indications: Ankle fracture, bimalleolar, closed, right, initial encounter Take 1 (one) tablet (5 mg total) by mouth every 8 (eight) hours as needed for pain (Days supply per fill: 7) . 12 tablet 0 08/08/2021 08/15/2021 Active Start: 08-03-2021 End: 08-06-2021 take 1 tablet by mouth every six hours as needed oxyCODONE (ROXICODONE) 5 MG immediate release tablet Indications: Closed fracture of right ankle, initial encounter Take 1 (one) tablet (5 mg total) by mouth every 6 (six) hours as needed . 12 tablet 0 08/03/2021 08/06/2021 Active Start: 08-02-2021 End: 08-02-2021 oxyCODONE (ROXICODONE) immed iate release tablet 5 mg Start: 08-01-2021 End: 08-03-2021 take 1 tablet by mouth every four hours as needed 5 mg, Oral, Every 4 hours PRN, moderate to severe pain, Starting on Fri08/01/21 at 1619 End: 08-08-2021 take 1 tablet by mouth every eight hours as needed oxyCODONE (Roxicodone) 5 MG immediate release tablet Take 5 mg by mouth every 8 (eight) hours as needed for pain (Days supply per fill: 7) . 0 08/08/2021 Discontinued (Reorder) pantoprazole 40 mg delayed release oral tablet (20 sources) Proton Pump Inhibitor Start: 08-03-2021 End: 09-02-2021 take 1 tablet by mouth once daily pantoprazole (PROTONIX) 40 MG tablet Take 1 (one) tablet (40 mg total) by mouth daily . 30 tablet 08/03/2021 Active PNV no.95/ferrous fum/folic ac ( ORAL) (20 sources) take 1 tablet by mouth once daily before mealtime PNV no.95/ferrous fum/folic ac ( ORAL) Take 1 tablet by mouth daily . Active take 1 tablet by rahul th once daily before mealtime PNV no.95/ferrous fum/folic ac ( ORAL) Take 1 tablet by mouth daily . 0 Active take 1 tablet by rahul th once daily before mealtime PNV no.95/ferrous fum/folic ac ( ORAL) Take 1 tablet by mouth daily . 0 sennosides, care home 8.6 mg oral tablet (6 sources) Start: 07-31-2021 End: 08-08-2021 take 1 tablet by mouth twice daily as needed for constipation senna (SENOKOT) 8.6 mg tablet Take 1 (one) tablet (8.6 mg total) by mouth 2 (two) times a day as needed for constipation . 10 tablet 0 08/03/2021 08/08/2021 Active tafluprost 0.015 mg/ml ophthalmic solution (20 sources) Prostaglandin Analog Start: 08-07-2023 Tafluprost (Pf) 0.0015 % dropperette Active 1 NMA OPHTHALMIC AT BEDTIME August 07, 2023 12:00am Start: 08-07-2023 Tafluprost (Pf ) Active 1 DRP OPHTHALMIC AT BEDTIME August 07, 2023 12:00am Start: 07-17-2023 take 1 drop(s) into the eye(s) once daily in the evening Tafluprost, PF, 0.0015 % Solution INSTILL 1 DROP INTO BOTH EYES EVERY EVENING DIRECTED 07/17/2023 Active Start: 12-06-2022 End: 04-17-2023 Tafluprost, PF, 0.0015 % Jacey ution tiZANidine 4 mg oral tablet (19 sources) Central alpha-2 Adrenergic Agonist Start: 06-28-2024 take 1 tablet by mouth at bedtime for muscle spasms tiZANidine 4 MG tablet Indications: Chronic pain of left knee , Primary osteoarthritis of left knee Take one tablet by mouth, at bedtime for muscle spasms. 10 tablet 06/28/2024 Active Start: 01-13-2024 End: 03-24-2024 take 2 tablets by mouth at bedtime as needed for muscle spasms Tizanidine 2 MG tablet Take 2 tablets by mouth at bedtime as needed for Muscle spasms. 20 tablet 01/13/2024 03/24/2024 Discontinued Start: 09-10-2023 End: 03-24-2024 take 1 tablet by mouth at bedtime as needed for muscle spasms tiZANidine 4 MG tablet Take 1 tablet by mouth at bedtime as needed for Muscle spasms. 20 tablet 09/10/2023 03/24/2024 Discontinued 24 hr venlafaxine 37.5 mg extended release oral capsule (20 sources) Serotonin and Norepinephrine Reuptake Inhibitor Start: 07-31-2021 venlafaxine (EFFEXOR-XR) 37.5 MG 24 hr capsule Completed/Discontinued Medications Medication Drug Class(es) Dates Sig (Normalized) Sig (Original) acetaminophen 325 mg oral tablet (2 sources) Start: 07-02-2024 End: 07-02-2024 take 4000 mg by mouth every twenty-four hours 650 mg, Oral, ONCE, 1 dose, On Fri07/02/24 at 0215, Maximum dose of acetaminophen is 4000 mg from all sources in 24 hours. Start: 07-31-2021 End: 08-03-2021 take 1 tablet by mouth every six hours acetaminophen (TYLENOL) tablet 650 mg acetaminophen 325 mg / oxyCODONE hydrochloride 5 mg oral tablet (20 sources) Opioid Agonist Start: 05-15-2023 End: 05-15-2023 oxyCODONE-acetaminophen (PERCOCET) 5-325 MG per tablet 1 tablet Start: 01-16-2023 End: 01-16-2023 oxyCODONE-acetaminophen (PER COCET) 5-325 MG per tablet 1 Each Start: 07-21-2020 End: 07-24-2020 Oxycodone-Acetaminophen 1 TA BLET tablet Discontinued 1 {tbl} PO EVERY 6 HOURS NEEDED as needed for Pain 12 July 21, 2020 July 23, 2020 12:00am July 24, 2020 12:02am Start: 07-21-2020 End: 07-24-2020 take 1 tablet by mouth every six hours as needed Oxycodone-Acetaminophen Discontinued 1 TABLET PO EVERY 6 HOURS NEEDED 12 July 21, 2020 July 24, 2020 12:02am Start: 07-30-2019 End: 08-02-2019 take 1-2 tablets by mouth every six hours as needed for pain Oxycodone-Acetaminophen (Endocet) 5-325 mg tablet Discontinued 1 {tbl} PO EVERY 6 HOURS as needed for pain 14 3 July 30, 2019 August 01, 2019 12:00am August 02, 2019 12:08am take 1-2 tabs every 6 hours, stop all other narcotics and tylenol products aluminum hydroxide 40 mg/ml / magnesium hydroxide 40 mg/ml / simethicone 4 mg/ml oral suspension (1 source) Start: 07-31-2021 End: 08-03-2021 take 30 mL by mouth every four hours as needed 30 mL, Oral, Every 4 hours PRN, indigestion, Starting on Fri07/31/21 at 1738 amLODIPine 5 mg oral tablet (5 sources) Dihydropyridine Calcium Channel Clint Start: 01-15-2023 End: 04-17-2023 take 1 tablet by mouth once daily amLODIPine 5 MG tablet TAKE 1 TABLET BY MOUTH EVERY DAY 30 tablet 3 01/15/2023 04/17/2023 Discontinued (Discontinued by another clinician (romain dos santos)) atorvastatin 20 mg oral tablet (10 sources) HMG-CoA Reductase Inhibitor Start: 04-11-2020 End: 08-07-2023 take 1 tablet by mouth at bedtime Atorvastatin 20 MG tablet Discontinued 20 mg PO AT BEDTIME April 11, 2020 12:00am August 07, 2023 3:19pm bacitracin 0.5 unt/mg topical ointment (1 source) Start: 07-11-2023 End: 07-11-2023 Bacitracin ointment 1 Application benzonatate 100 mg oral capsule (7 sources) Non-narcotic Antitussive Start: 09-21-2023 End: 03-24-2024 take 1 capsule by mouth three times daily as needed for cough benzonatate 100 MG capsule Indications: Acute non-recurrent maxillary sinusitis Take 1 capsule by mouth 3 times daily as needed for Cough. 21 capsule 09/21/2023 03/24/2024 Discontinued bisacodyl 10 mg rectal suppository (20 sources) Stimulant Laxative Start: 02-05-2017 End: 10-22-2018 take 10 mg rectal route once daily as needed for constipation Bisacodyl 10 MG suppository Discontinued 10 mg RECTAL DAILY NEEDED as needed for Severe constipation February 05, 2017 3:19pm October 22, 2018 11:07am C,E,Zinc,Copper 83-[id number] 1 EACH capsule (1 source) Start: 07-28-2019 End: 08-07-2023 take 1 capsule by mouth once daily C,E,Zinc,Copper [id number] 1 EACH capsule Discontinued 1 NMA PO DAILY July 28, 2019 12:00am August 07, 2023 3:19pm calcium chloride 0.0014 meq/ml / potassium chloride 0.004 meq/ml / sodium chloride 0.103 meq/ml / sodium lactate 0.028 meq/ml injectable solution (2 sources) Start: 10-21-2024 End: 10-21-2024 Intravenous, at 75 mL/hr, CONTINUOUS, Starting on Yoli 10/21/24 at 0645, Until Yoli 10/21/24 at 1318, Pre-op/Pre-Proc Start: 08-01-2021 End: 08-02-2021 take 100 mL intravenously every hour 100 mL/hr, Intravenous, Continuous, Starting on Fri08/01/21 at 1515, PACU (only) 50 ml clindamycin 18 mg/ml injection (1 source) Lincosamide Antibacterial Start: 08-01-2021 End: 08-02-2021 take 900 mg intravenously every eight hours 900 mg, Intravenous, at 100 mL/hr, Every 8 hours, First dose on Fri08/01/21 at 2000, For 2 doses Indication (POST PROCEDURE): post procedure cyclobenzaprine hydrochloride 10 mg oral tablet (5 sources) Muscle Relaxant Start: 07-09-2012 End: 10-24-2022 cyclobenzaprine 10 MG Tab tablet cyclobenzaprine FLEXERIL 10 MG TABS every night CYCLOBENZAPRINE HCL [id number] Tonya Moss 07-[birth year]-2012 [facility] ([id number]) 0 07/09/2012 10/24/2022 Discontinued diazePAM 2 mg oral tablet (20 sources) Benzodiazepine Start: 02-03-2020 End: 08-07-2023 take 1 tablet by mouth twice daily for anxiety Diazepam (Valium) 2 mg tablet Discontinued 2 mg PO TWICE A DAY as needed for anxiety February 03, 2020 12:00am August 07, 2023 3:19pm take one tab one hour before, 30 mins before mri diclofenac sodium 0.01 mg/mg topical gel (20 sources) Nonsteroidal Anti-inflammatory Drug Start: 02-07-2023 End: 03-24-2024 Diclofenac sodium 1 % Gel gel Apply 4 g topically 2 times daily. 100 g 1 01/13/2024 03/24/2024 Discontinued docusate sodium 50 mg / sennosides, care home 8.6 mg oral tablet (20 sources) Start: 02-05-2017 End: 10-22-2018 Sennosides-Docusat e Sodium Discontinued 1 EACH PO TWICE DAILY NEEDED February 05, 2017 3:19pm October 22, 2018 11:07am Start: 02-05-2017 End: 10-22-2018 Sennosides-Docusate Sodium 1 EACH tablet Discontinued 1 NMA PO TWICE DAILY NEEDED as needed for mild constipation February 05, 2017 3:19pm October 22, 2018 11:07am doxycycline hyclate 100 mg oral tablet (1 source) Tetracycline-class Drug Start: 11-19-2022 End: 11-29-2022 take 1 tablet by mouth twice daily doxycycline hyclate 100 MG tablet Take 1 tablet by mouth 2 times daily. 0 11/19/2022 11/29/2022 Discontinued (Medication Reconciliation (suppress cancel msg)) DULoxetine 60 mg delayed release oral capsule (10 sources) Serotonin and Norepinephrine Reuptake Inhibitor Start: 04-11-2020 End: 08-07-2023 take 1 capsule by mouth once daily Duloxetine 60 MG capsule,delayed release(DR/EC) Discontinued 60 mg PO DAILY April 11, 2020 12:00am August 07, 2023 3:19pm synthetic conjugated estrogens, a 1.25 mg oral tablet (2 sources) Start: 07-09-2012 CENESTIN 1.25 MG TABS daily ESTROGENS CONJ SYNTHETIC A [id number] Tonya Moss 2 ml famotidine 10 mg/ml injection (1 source) Histamine-2 Receptor Antagonist Start: 05-15-2023 End: 05-15-2023 famotidine (PF) (PEPCID) injection 40 mg fexofenadine hydrochloride 180 mg oral tablet (1 source) Histamine-1 Receptor Antagonist Start: 02-24-2024 End: 03-24-2024 take 1 tablet by mouth once daily Fexofenadine 180 MG tablet Take 1 tablet by mouth daily. 02/24/2024 03/24/2024 Discontinued fluocinolone acetonide 0.1 mg/ml topical oil (1 source) Corticosteroid Start: 10-21-2022 End: 11-29-2022 Fluocinolone Acetonide Body 0.01 % Oil APPLY TO SCALP TWICE A WEEK NEEDED, PER ITCHING/DRYNESS 0 10/21/2022 11/29/2022 Discontinued (Medication Reconciliation (suppress cancel msg)) gabapentin 300 mg oral capsule (20 sources) Anti-epileptic Agent Start: 07-31-2021 End: 08-03-2021 take 300 mg by mouth every eight hours 300 mg, Oral, Every 8 hours scheduled, First dose on Fri07/31/21 at 2200 gabapentin (NEUR ONTIN) 100 MG capsule Take 100-300 mg by mouth 3 (three) times a day as needed . 0 Active 1 ml HYDROmorphone hydrochloride 1 mg/ml injection (6 sources) Opioid Agonist Start: 10-21-2024 End: 10-21-2024 0.5 mg, Intravenous, ONCE, 1 dose, On Yoli 10/21/24 at 1015 Start: 07-31-2021 End: 08-01-2021 HYDROmorphone (DILAUDID) inj ection 0.5 mg iodixanol (VISIPAQUE) injection 320 mg/mL for [facility] (1 source) Start: 11-20-2022 End: 11-20-2022 iodixanol (VISIPAQUE) injection 320 mg/mL for [facility] 1 ml ketorolac tromethamine 15 mg/ml injection (5 sources) Nonsteroidal Anti-inflammatory Drug, Cyclooxygenase Inhibitor Start: 05-15-2023 End: 05-15-2023 Ketorolac (TORADOL) injection 15 mg Start: 08-02-2021 End: 08-03-2021 take 30 mg intravenously every six hours as needed for pain ketorolac (TORADOL) injection 30 mg Start: 08-02-2021 End: 08-02-2021 ketorolac (TORADOL) injectio n 15 mg Start: 08-02-2021 End: 08-02-2021 ketorolac (TORADOL) 15 mg/mL injection - ADS Override Pull lidocaine 0.05 mg/mg medicated patch (2 sources) Antiarrhythmic, Amide Local Anesthetic Start: 01-16-2023 End: 01-26-2023 lidocaine (LIDODERM) 5 % patch 1 patch lisinopril 5 mg oral tablet (8 sources) Angiotensin Converting Enzyme Inhibitor Start: 11-19-2022 End: 04-17-2023 take 1 tablet by mouth once daily Lisinopril 5 MG tablet TAKE 1 TABLET BY MOUTH EVERY DAY 30 tablet 1 11/19/2022 04/17/2023 Discontinued (Allergic response) Start: 10-28-2022 take 1 tablet by once daily Lisinopril (Zestril) 5 MG tablet Take 1 tablet by mouth daily. 30 tablet 1 10/28/2022 Active loratadine 10 mg oral tablet (2 sources) Start: 07-09-2012 LORATADINE 10 MG TABS daily LORATADINE [id number] Tonya Lu Isa losartan potassium 25 mg oral tablet (2 sources) Angiotensin 2 Receptor Clint End: 10-24-2022 take 1 tablet by mouth once daily Losartan 25 MG tablet Take 25 mg by mouth daily. 0 10/24/2022 Discontinued magnesium hydroxide 80 mg/ml oral suspension (1 source) Start: 07-31-2021 End: 08-03-2021 take 2400 mg by mouth once daily as needed for constipation 2,400 mg (30 mL), Oral, Daily PRN, constipation, Starting on Fri07/31/21 at 1738 If no bowel movement in 24 hours after Sennosides (SENNA) administration. meloxicam 7.5 mg oral tablet (1 source) Nonsteroidal Anti-inflammatory Drug Start: 09-07-2019 End: 11-29-2022 Meloxicam 7.5 MG tablet meloxicam Meloxicam Active 7.5 MG DAILY September 07, 2019 1:57pm stop all other nsaids 09-07-2019 [facility] ([id number]) 0 09/07/2019 11/29/2022 Discontinued (Medication Reconciliation (suppress cancel msg)) methylPREDNISolone 125 mg injection (1 source) Corticosteroid Start: 05-15-2023 End: 05-15-2023 methylPREDNISolone sodium succinate (SOLU-MEDROL) injection 125 mg 5 ml midazolam 1 mg/ml injection (1 source) Benzodiazepine Start: 08-01-2021 End: 08-01-2021 midazolam (VERSED) 1 mg/mL injection - ADS Override Pull naloxone (NARCAN) injection 0.1 mg (1 source) Start: 07-31-2021 End: 08-03-2021 naloxone (NARCAN) injection 0.1 mg 2 ml ondansetron 2 mg/ml injection (6 sources) Serotonin-3 Receptor Antagonist Start: 10-21-2024 End: 10-21-2024 take 4 mg intravenously every four hours as needed 4 mg, Intravenous, EVERY 4 HOURS NEEDED, Starting on Yoli 10/21/24 at 0930, Until Yoli 10/21/24 at 1318, Nausea / Vomiting, Post-op/Post-Proc Start: 01-31-2022 End: 11-29-2022 take 1 tablet by mouth every eight hours as needed ondansetron (ZOFRAN-ODT) 4 MG disintegrating tablet Dissolve 1 (one) tablet (4 mg total) on top of tongue every 8 (eight) hours as needed . 21 tablet 01/31/2022 Active Start: 07-31-2021 End: 08-03-2021 take 4 mg intravenously every six hours as needed for nausea and vomiting 4 mg, Intravenous, Every 6 hours PRN, nausea, vomiting, Starting on Fri07/31/21 at 1738 predniSONE 20 mg oral tablet (7 sources) Start: 09-21-2023 End: 03-24-2024 predniSONE 20 MG tablet Indications: Acute non-recurrent maxillary sinusitis 2 tablets once a day for 5 days 10 tablet 09/21/2023 03/24/2024 Discontinued promethazine hydrochloride 25 mg oral tablet (10 sources) Phenothiazine Start: 07-21-2020 End: 08-07-2023 take 1 tablet by mouth every six hours as needed for nausea Promethazine 25 MG tablet Discontinued 25 mg PO EVERY 6 HOURS NEEDED as needed for Nausea July 21, 2020 12:00am August 07, 2023 3:19pm 1000 ml sodium chloride 9 mg/ml injection (3 sources) Start: 11-20-2022 End: 11-20-2022 Sodium chloride 0.9% IV solution 75 mL Start: 07-31-2021 End: 08-02-2021 take 100 mL intravenously every hour 100 mL/hr, Intravenous, Continuous, Starting on Fri07/31/21 at 1740 Start: 07-31-2021 End: 08-03-2021 sodium chloride (PF) (NS) fl ush 5 mL traMADol hydrochloride 50 mg oral tablet (20 sources) Opioid Agonist Start: 02-05-2017 End: 10-22-2018 take 1 tablet by mouth every four hours as needed for pain Tramadol 50 MG tablet Discontinued 50 mg PO EVERY 4 HOURS NEEDED as needed for Severe Pain (-07/15) February 05, 2017 3:18pm October 22, 2018 11:07am traZODone hydrochloride 50 mg oral tablet (1 source) Serotonin Reuptake Inhibitor Start: 07-31-2021 End: 08-03-2021 take 50 mg by mouth once daily as needed for sleep 50 mg, Oral, Nightly PRN, sleep, Starting on Fri07/31/21 at 1738 May repeat times 1 in 30 minutes if still awake. 1 ml triamcinolone acetonide 40 mg/ml injection (4 sources) Corticosteroid Start: 06-28-2024 End: 06-28-2024 triamcinolone (KENALOG-40) injection 1 mL Start: 06-28-2024 End: 06-28-2024 1 mL, Intra-articular, ONCE NEEDED, 1 dose, Starting on Fri06/28/24 at 1115, Until Fri06/28/24 at 1115 Start: 03-05-2024 End: 03-05-2024 triamcinolone (KENALOG-40) i njection 1 mL Start: 03-05-2024 End: 03-05-2024 1 mL, Intra-articular, ONCE NEEDED, 1 dose, Starting on Fri03/05/24 at 1430, Until Fri03/05/24 at 1430 zolpidem tartrate 5 mg oral tablet (5 sources) gamma-Aminobutyric Acid-ergic Agonist Start: 07-09-2012 End: 10-24-2022 zolpidem 5 MG Tab tablet zolpidem AMBIEN 5 MG TABS every night ZOLPIDEM TARTRATE [id number] Tonya Tabitha Moss 07-[birth year]-2012 [facility] ([id number]) 0 07/09/2012 10/24/2022 Discontinued NEGATED: Highlighted row has not occurred!No Current Medications (1 source) No Current Medications Problems Active Problems Problem Classification Problem Date Documented Date Episodic/Chronic Abdominal pain (13 sources) Abdominal pain; Translations: [Unspecified abdominal pain] 08-07-2023 Episodic Acquired foot deformities (1 source) Toe joint rigid; Translations: [Hallux rigidus, right foot] 02-23-2025 Chronic Acute and unspecified renal failure (1 source) Acute injury of kidney; Translations: [Acute kidney failure, unspecified] Episodic Anxiety disorders (10 sources) Anxiety; Translations: [Anxiety disorder, unspecified] 11-06-2018 Chronic Asthma (20 sources) Uncomplicated mild persistent asthma; Translations: [Mild persistent asthma, uncomplicated] Onset: 10-09-2022 10-09-2022 Chronic Chronic kidney disease (20 sources) Chronic kidney disease stage 3; Translations: [Stage 3 chronic kidney disease] Onset: 10-09-2022 Chronic Chronic kidney disease (2 sources) Chronic kidney disease; Translations: [Chronic kidney disease, stage 3b] Onset: 10-09-2022 Disorders of lipid metabolism (20 sources) Hyperlipidemia; Translations: [Other hyperlipidemia] Onset: 10-09-2022 10-09-2022 Chronic Disorders of teeth and jaw (2 sources) Dental caries; Translations: [Dental caries, unspecified] 12-27-2024 Episodic Diverticulosis and diverticulitis (9 sources) Diverticulitis of sigmoid colon; Translations: [Diverticulitis of large intestine without perforation or abscess without bleeding] 08-07-2023 Chronic Comment on above: This is a 57-year-ol d female who follows up after recent inpatient hospitalization for recurrent sigmoid diverticulitis. Although she reports that her abdominal pain is resolved she exhibits significant anxiety about returning to a regular diet. We discussed at length my recommendation to proceed with incorporating more protein sources and I suggested that she consider use of a protein supplement while she remains hesitant about introducing new foods. I also discussed with her the concern over her fluoroquinolone causing an extremity issue and suggested that between this and her penicillin allergy the choice for antibiotics for enteric pathogens is somewhat limited. She does report that her last adverse reaction to penicillins was as a child. She also would appear to be adequately treated if we add her inpatient antibiotic duration to her outpatient course. Indeed on exam, Mrs. Hutchison shows largely resolution of her symptoms but has some persistent left lower quadrant tenderness with deep palpation. Therefore, I advised that we wait until the new year to proceed with a diagnostic colonoscopy. She is in agreement and states that she is trying to do anything in her control to mitigate her risk for recurrence of her pain or for need for surgery. Genitourinary symptoms and ill-defined conditions (2 sources) Increased frequency of urination; Translations: [Frequency of micturition] Episodic Joint disorders and dislocations; trauma-related (3 sources) Tear of meniscus of knee; Translations: [Other tear of unspecified meniscus, current injury, left knee, subsequent encounter] 07-26-2024 Episodic Nonspecific chest pain (1 source) Chest pain; Translations: [Other chest pain] Episodic Open wounds of extremities (1 source) Laceration of left thumb; Translations: [Laceration without foreign body of left thumb without damage to nail, initial encounter] 07-11-2023 Episodic Osteoarthritis (3 sources) Osteoarthritis of left knee joint; Translations: [Unilateral primary osteoarthritis, left knee] 06-28-2024 Chronic Other connective tissue disease (1 source) Swelling [...] (2 sources) Laceration - injury 04-20-2022 Episodic Comment on above: LACERATION Other injuries and conditions due to external causes (1 source) Unspecified injury of left foot, initial encounter; Translations: [Unspecified injury of left foot, initial encounter] Onset: 12-07-2024 Episodic Other lower respiratory disease (1 source) Cough; Translations: [Acute cough] 09-21-2023 Episodic Other nervous system disorders (6 sources) Ulnar nerve entrapment; 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] Onset: 07-13-2012 08-10-2012 Chronic Other non-traumatic joint disorders (1 source) Acute ankle pain; Translations: [Pain in right ankle and joints of right foot] Episodic Other non-traumatic joint disorders (1 source) Ankle pain; Translations: [Pain in right ankle and joints of right foot] Onset: 12-12-2021 12-12-2021 Episodic Other non-traumatic joint disorders (9 sources) Pain in left knee; Translations: [Pain in joint, lower leg] Episodic Other non-traumatic joint disorders (1 source) Toe joint rigid 02-23-2025 Episodic Other nutritional; endocrine; and metabolic disorders (16 sources) Obese class I; Translations: [Obesity, unspecified] Onset: 12-24-2023 12-24-2023 Chronic Other screening for suspected conditions (not mental disorders or infectious disease) (1 source) Encounter for screening mammogram for malignant neoplasm of breast; Translations: [Encounter for screening mammogram for malignant neoplasm of breast] Onset: 01-26-2025 Episodic Other upper respiratory infections (1 source) Acute maxillary sinusitis; Translations: [Acute maxillary sinusitis, unspecified] 09-21-2023 Episodic Poisoning by nonmedicinal substances (1 source) Bee sting; Translations: [Toxic effect of venom of bees, assault, initial encounter] 05-15-2023 Episodic Residual codes; unclassified (1 source) Orthopedic hardware in situ; Translations: [Presence of functional implant, unspecified] Onset: 12-12-2021 12-12-2021 Chronic Residual codes; unclassified (1 source) Pain; Translations: [Pain, unspecified] Episodic Residual codes; unclassified (2 sources) History of arthroscopy of knee joint; Translations: [Other specified postprocedural states] 10-21-2024 Episodic Spondylosis; intervertebral disc disorders; other back problems (1 source) Low back pain; Translations: [Low back pain, unspecified back pain laterality, unspecified chronicity, unspecified whether sciatica present] 01-13-2024 Episodic Unclassified (4 sources) HEADACHES // CHILLS / COUGH // 10-01-2021 Comment on above: HEADACHES // CHILLS / COUGH // Past or Other Problems Problem Classification Problem Date Documented Date Episodic/Chronic Administrative/social admission (1 source) Referral statuses; Translations: [Referral of patient] Episodic Fracture of lower limb (20 sources) Closed fracture of right ankle; Translations: [Other fracture of right lower leg, initial encounter for closed fracture] Onset: 07-31-2021 Episodic Influenza (1 source) Influenza due to Influenza A virus; Translations: [Influenza A] Episodic Other non-traumatic joint disorders (2 sources) Pain in wrist; Translations: [Pain in unspecified wrist] Onset: 07-13-2012 07-13-2012 Episodic Residual codes; unclassified (1 source) Influenza-like symptoms; Translations: [Flu-like symptoms] Episodic Residual codes; unclassified (4 sources) Other specified postprocedural states; Translations: [Other specified postprocedural states] Onset: 11-04-2024 Episodic Sprains and strains (3 sources) Strain of neck muscle; Translations: [Strain of muscle, fascia and tendon at neck level, initial encounter] Onset: 07-02-2024 07-02-2024 Episodic Superficial injury; contusion (9 sources) Contusion of scalp; Translations: [Contusion of scalp, initial encounter] Onset: 07-02-2024 07-02-2024 Episodic Unclassified (1 source) Problem Unclassified (8 sources) s/p fibroid removal 04-24-2022 Results Test Name Value Interpretation Reference Range Facility CBCon 06-13-2025 ABSOLUTE BAS 0.0 10*3/uL Normal 0.0-0.2 [facility] Comment on above: Performed By: #### P CR #### Testing performed at [address] [address] ABSOLUTE EOS 0.2 10*3/uL Normal 0.0-0.7 [facility] Comment on above: Performed By: #### P CR #### Testing performed at [address] [address] ABSOLUTE NEUTROPHIL COUNT 3.0 10*3/uL Normal 1.4-6.5 [facility] Comment on above: Performed By: #### P CR #### Testing performed at [address] [address] Basophils/100 WBC (Bld) 0.6 % Normal 0.0-2.0 [facility] Comment on above: Performed By: #### P CR #### Testing performed at [address] [address] DTYPE AUTO DIFF Normal [facility] Comment on above: Performed By: #### P CR #### Testing performed at [address] [address] Eosinophils/100 WBC (Bld) 3.4 % Normal 0.0-11.0 [facility] Comment on above: Performed By: #### P CR #### Testing performed at [address] [address] Lymphocytes (Bld) [#/Vol] 1.8 10*3/uL Normal 1.2-3.4 [facility] Comment on above: Performed By: #### P CR #### Testing performed at [address] [address] Lymphocytes/100 WBC (Bld) 32.6 % Normal 20.0-55.0 [facility] Comment on above: Performed By: #### P CR #### Testing performed at [address] [address] Monocytes (Bld) [#/Vol] 0.5 10*3/uL Normal 0.0-0.7 [facility] Comment on above: Performed By: #### P CR #### Testing performed at [address] [address] Monocytes/100 WBC (Bld) 9.0 % Normal 0.0-10.0 [facility] Comment on above: Performed By: #### P CR #### Testing performed at [address] [address] Neutrophils/100 WBC (Bld) 54.4 % Normal 37.0-75.0 [facility] Comment on above: Performed By: #### P CR #### Testing performed at [address] [address] Erythrocyte distribution width (RBC) [Ratio] 14.5 % Normal 11.5-14.5 [facility] Comment on above: Performed By: #### P CR #### Testing performed at [address] [address] Hematocrit (Bld) [Volume fraction] 42.4 % Normal 36.0-48.0 [facility] Comment on above: Performed By: #### P CR #### Testing performed at [address] [address] Hemoglobin (Bld) [Mass/Vol] 14.2 g/dL Normal 12.0-16.0 [facility] Comment on above: Performed By: #### P CR #### Testing performed at [address] [address] MCH (RBC) [Entitic mass] 30.4 pg Normal 26.0-35.0 [facility] Comment on above: Performed By: #### P CR #### Testing performed at [address] [place] [address] MCHC (RBC) [Mass/Vol] 33.5 g/dL Normal 27.0-37.0 [facility] Comment on above: Performed By: #### P CR #### Testing performed at [address] [address] MCV (RBC) [Entitic vol] 90.7 fL Normal 80.0-100.0 [facility] Comment on above: Performed By: #### P CR #### Testing performed at [address] [address] Platelet mean volume (Bld) [Entitic vol] 7.2 fL Low 7.4-11.0 [facility] Comment on above: Performed By: #### P CR #### Testing performed at [address] [address] Platelets (Bld) [#/Vol] 315 10*3/uL Normal 130-400 [facility] Comment on above: Performed By: #### P CR #### Testing performed at [address] [address] RBC (Bld) [#/Vol] 4.68 10*6/uL Normal 4.0-5.4 [facility] Comment on above: Performed By: #### P CR #### Testing performed at [address] [address] WBC (Bld) [#/Vol] 5.5 10*3/uL Normal 3.6-11.0 [facility] Comment on above: Performed By: #### P CR #### Testing performed at [address] [address] MAGNESIUMon 06-13-2025 Magnesium [Mass/Vol] 1.9 mg/dL Normal 1.6-2.[address] [facility] Comment on above: Performed By: #### P CR #### Testing performed at [address] [place] [address] MALB/CREAT RATIO,URINEon MALB/CREAT RATIO,URINE 134.9 mg MALB/g CREAT High 1.3-30.0 [facility] Comment on above: Performed By: #### P CR #### Testing performed at [address] [address] URINE CREATININE RANDOM 100.4 MG/DL Normal [facility] Comment on above: Result Comment: NO N ORMAL VALUES ESTABLISHED FOR RANDOM SPECIMENS Performed By: #### P CR #### Testing performed at [address] [address] MICROALBUMIN,RANDOM URINE 135.4 mg/L High 0.0-16.7 [facility] Comment on above: Performed By: #### P CR #### Testing performed at [address] [address] PROTEIN CREATININE RATIOon 0 06-13-2025 PROTEIN CREATININE RATIO 0.3 Normal [facility] Comment on above: Result Comment: REFERENCE RANGES <0.2 NORMAL 0.2-3.5 NON-NEPHROTIC >3.5 NEPHROTIC Performed By: #### P CR ####Testing performed at [address] [address] URINE CREATININE RANDOM 102.6 MG/DL Normal [facility] Comment on above: Result Comment: NO N ORMAL VALUES ESTABLISHED FOR RANDOM SPECIMENS Performed By: #### P CR ####Testing performed at [address] [address] URINE TP RANDOM 31 MG/DL High 0-12 [facility] Comment on above: Performed By: #### P CR ####Testing performed at [address] [address] RENAL PANEL,FASTINGon 2024 Albumin [Mass/Vol] 3.9 g/dL Normal 3.5-5.0 [facility] Comment on above: Performed By: #### P CR #### Testing performed at [address] [address] Calcium [Mass/Vol] 9.4 mg/dL Normal 8.4-10.2 [facility] Comment on above: Performed By: #### P CR #### Testing performed at [address] [address] Chloride [Moles/Vol] 106 mmol/L Normal 98-[address] [facility] Comment on above: Result Comment: Osman solorio note: Triglyceride levels of 600mg/dL or higher may positively bias chloride results by approximately 2.1 mmol Performed By: #### P CR #### Testing performed at [address] [address] CO2 [Moles/Vol] 25 mmol/L Normal 22-30 [facility] Comment on above: Performed By: #### P CR #### Testing performed at [address] [address] Creatinine [Mass/Vol] 1.56 mg/dL High 0.70-1.20 [facility] Comment on above: Performed By: #### P CR #### Testing performed at [address] [address] GFR Information Average GFR for 60-69 years old = 85. Normal [facility] Comment on above: Result Comment: [employer] mindy Kidney disease, GFR = <60. Kidney failure, GFR = <15. The GFR estimate is not adjusted for extreme body surface area or acute process, nor has it been validated for women or ethnic groups other than and . MDRD Equation Performed By: #### P CR #### Testing performed at [address] [address] GFR/1.73 sq M.predicted MDRD (S/P/Bld) [Vol rate/Area] 36 mL/min/{1.73_m2} Normal [facility] Comment on above: Performed By: #### P CR #### Testing performed at [address] [address] Glucose [Mass/Vol] 87 mg/dL Normal 70-100 [facility] Comment on above: Result Comment: NORMAL <100 mg/dL PREDIABETES 101-126 mg/dL DIABETES 126 mg/dL or higher Performed By: #### P CR #### Testing performed at [address] [address] PHOSPHOROUS 3.5 MG/DL Normal 2.5-4.5 [facility] Comment on above: Performed By: #### P CR #### Testing performed at [address] [address] Potassium [Moles/Vol] 3.4 mmol/L Low 3.5-5.1 [facility] Comment on above: Performed By: #### P CR #### Testing performed at [address] [address] Sodium [Moles/Vol] 140 mmol/L Normal 137-145 [facility] Comment on above: Performed By: #### P CR #### Testing performed at [address] [address] Urea nitrogen [Mass/Vol] 16 mg/dL Normal 7-20 [facility] Comment on above: Performed By: #### P CR #### Testing performed at [address] [address] URINE MACROSCOPICon 06-13-20 25 Bilirubin Ql (U) Negative Normal NEGATIVE [facility] Comment on above: Performed By: #### P CR #### Testing performed at [address] [address] Clarity (U) CLEAR Normal CLEAR [facility] Comment on above: Performed By: #### P CR #### Testing performed at [address] [address] Color (U) YELLOW Normal YELLOW [facility] Comment on above: Performed By: #### P CR #### Testing performed at [address] [address] Glucose Ql (U) 500 mg/dl Abnormal NEGATIVE [facility] Comment on above: Performed By: #### P CR #### Testing performed at [address] [address] pH (U) 5.5 [pH] Normal 5.0-7.0 [facility] Comment on above: Performed By: #### P CR #### Testing performed at [address] [address] Protein (U) [Mass/Vol] 30 mg/dL Abnormal NEGATIVE [facility] Comment on above: Performed By: #### P CR #### Testing performed at [address] [address] URINE HEMOGLOBIN TRACE-INTACT Abnormal NEGATIVE [facility] Comment on above: Performed By: #### P CR #### Testing performed at [address] [place] [address] URINE KETONE Negative Normal NEGATIVE [facility] Comment on above: Performed By: #### P CR #### Testing performed at [address] [address] URINE LEUKOTEST Negative Normal NEGATIVE [facility] Comment on above: Performed By: #### P CR #### Testing performed at [address] [address] URINE NITRATES Negative Normal NEGATIVE [facility] Comment on above: Performed By: #### P CR #### Testing performed at [address] [address] URINE SPEC GRAVITY 1.020 Normal 1.010-1.025 [facility] Comment on above: Performed By: #### P CR #### Testing performed at [address] [address] Urobilinogen Qn (U) 0.2 {Radha'U}/dL Normal 0.2-1.0 [facility] Comment on above: Performed By: #### P CR #### Testing performed at [address] [address] URINE MICROSCOPICon 06-13-20 URINE COMMENT CULTURE CRITERIA NOT MET, NO CULTURE PERFORMED. Normal [facility] Comment on above: Result Comment: MAG ECTED ON 06/13 AT 1117: PREVIOUSLY REPORTED PHYSICIAN REQUESTED CULTURE, CORRECTED ON 06/13 AT 1116: PREVIOUSLY REPORTED CULTURE CRITERIA NOT MET, NO CULTURE PERFORMED. Performed By: #### P CR #### Testing performed at [address] [address] BACTERIA TRACE Abnormal NEGATIVE [facility] Comment on above: Performed By: #### P CR #### Testing performed at [address] [address] CASTS NONE Normal NONE [facility] Comment on above: Performed By: #### P CR #### Testing performed at [address] [address] CRYSTAL NONE Normal NONE [facility] Comment on above: Performed By: #### P CR #### Testing performed at [address] [address] Epithelial cells LM Ql (Urine sed) 1 TO 5 Normal [facility] Comment on above: Performed By: #### P CR #### Testing performed at [address] [address] Mucus Ql (Urine sed) Negative Normal NEGATIVE [facility] Comment on above: Performed By: #### P CR #### Testing performed at [address] [address] URINE RBC'S Negative Normal NEGATIVE [facility] Comment on above: Performed By: #### P CR #### Testing performed at [address] [address] URINE WBC'S Negative Normal NEGATIVE [facility] Comment on above: Performed By: #### P CR #### Testing performed at [address] [address] URINE SODIUM RANDOMon 2024 Sodium (U) [Moles/Vol] 131 mmol/L High 30-90 [facility] Comment on above: Performed By: #### P CR #### Testing performed at [address] [address] 25 0H VITAMIN D LEVELon 03-06 25 0H VITAMIN D LEVEL 33.4 NG/ML Normal [facility] Comment on above: Result Comment: DEFICIENT <20 NG/ML INSUFFICIENT 20-<30 NG/ML SUFFICIENT 30-100 NG/ML POTENTIAL TOXICITY >100 NG/ML Performed By: #### V ITD ####Testing performed at [address] [address] CBCon 03-21-2025 ABSOLUTE BAS 0.0 10*3/uL Normal 0.0-0.2 [facility] Comment on above: Performed By: #### P CR #### Testing performed at [address] [address] ABSOLUTE EOS 0.1 10*3/uL Normal 0.0-0.7 [facility] Comment on above: Performed By: #### P CR #### Testing performed at [address] [address] ABSOLUTE NEUTROPHIL COUNT 2.3 10*3/uL Normal 1.4-6.5 [facility] Comment on above: Performed By: #### P CR #### Testing performed at [address] [address] Basophils/100 WBC (Bld) 1.1 % Normal 0.0-2.0 [facility] Comment on above: Performed By: #### P CR #### Testing performed at [address] [address] DTYPE AUTO DIFF Normal [facility] Comment on above: Performed By: #### P CR #### Testing performed at [address] [address] Eosinophils/100 WBC (Bld) 2.9 % Normal 0.0-11.0 [facility] Comment on above: Performed By: #### P CR #### Testing performed at [address] [address] Lymphocytes (Bld) [#/Vol] 1.7 10*3/uL Normal 1.2-3.4 [facility] Comment on above: Performed By: #### P CR #### Testing performed at [address] [address] Lymphocytes/100 WBC (Bld) 36.7 % Normal 20.0-55.0 [facility] Comment on above: Performed By: #### P CR #### Testing performed at [address] [address] Monocytes (Bld) [#/Vol] 0.4 10*3/uL Normal 0.0-0.7 [facility] Comment on above: Performed By: #### P CR #### Testing performed at [address] [address] Monocytes/100 WBC (Bld) 8.9 % Normal 0.0-10.0 [facility] Comment on above: Performed By: #### P CR #### Testing performed at [address] [address] Neutrophils/100 WBC (Bld) 50.4 % Normal 37.0-75.0 [facility] Comment on above: Performed By: #### P CR #### Testing performed at [address] [address] Erythrocyte distribution width (RBC) [Ratio] 14.9 % High 11.5-14.5 [facility] Comment on above: Performed By: #### P CR #### Testing performed at [address] [address] Hematocrit (Bld) [Volume fraction] 45.5 % Normal 36.0-48.0 [facility] Comment on above: Performed By: #### P CR #### Testing performed at [address] [address] Hemoglobin (Bld) [Mass/Vol] 15.5 g/dL Normal 12.0-16.0 [facility] Comment on above: Performed By: #### P CR #### Testing performed at [address] [address] MCH (RBC) [Entitic mass] 31.2 pg Normal 26.0-35.0 [facility] Comment on above: Performed By: #### P CR #### Testing performed at [address] [address] MCHC (RBC) [Mass/Vol] 34.1 g/dL Normal 27.0-37.0 [facility] Comment on above: Performed By: #### P CR #### Testing performed at [address] [address] MCV (RBC) [Entitic vol] 91.6 fL Normal 80.0-100.0 [facility] Comment on above: Performed By: #### P CR #### Testing performed at [address] [address] Platelet mean volume (Bld) [Entitic vol] 7.2 fL Low 7.4-11.0 [facility] Comment on above: Performed By: #### P CR #### Testing performed at [address] [address] Platelets (Bld) [#/Vol] 265 10*3/uL Normal 130-400 [facility] Comment on above: Performed By: #### P CR #### Testing performed at [address] [address] RBC (Bld) [#/Vol] 4.97 10*6/uL Normal 4.0-5.4 [facility] Comment on above: Performed By: #### P CR #### Testing performed at [place] [id number] WBC (Bld) [#/Vol] 4.5 10*3/uL Normal 3.6-11.0 [facility] Comment on above: Performed By: #### P CR #### Testing performed at [place] [id number] MAGNESIUMon 03-21-2025 Magnesium [Mass/Vol] 2.2 mg/dL Normal 1.6-2.[address] [facility] Comment on above: Performed By: #### P CR #### [place] [address] MALB/CREAT RATIO,URINEon MALB/CREAT RATIO,URINE 55.1 mg MALB/g CREAT High 1.3 -30.0 [facility] Comment on above: Performed By: #### P CR #### Testing performed at [place] [id number] MICROALBUMIN,RANDOM URINE 59.6 mg/L High 0.0-16.7 [facility] Comment on above: Performed By: #### P CR #### [place] [address] URINE CREATININE RANDOM 108.1 MG/DL Normal [facility] Comment on above: Result Comment: NO N ORMAL VALUES ESTABLISHED FOR RANDOM SPECIMENS Performed By: #### P CR #### Testing performed at [place] [id number] PROTEIN CREATININE RATIOon 0 03-21-2025 PROTEIN CREATININE RATIO 0.1 Normal [facility] Comment on above: Result Comment: REFERENCE RANGES <0.2 NORMAL 0.2-3.5 NON-NEPHROTIC >3.5 NEPHROTIC Performed By: #### P CR #### Testing performed at [place] [id number] URINE CREATININE RANDOM 109.4 MG/DL Normal [facility] Comment on above: Result Comment: NO N ORMAL VALUES ESTABLISHED FOR RANDOM SPECIMENS Performed By: #### P CR #### Testing performed at [address] [address] URINE TP RANDOM 12 MG/DL Normal 0-12 [facility] Comment on above: Performed By: #### P CR #### Testing performed at [address] [address] RENAL PANEL,FASTINGon 2024 Albumin [Mass/Vol] 4.1 g/dL Normal 3.5-5.0 [facility] Comment on above: Performed By: #### P CR #### Testing performed at [place] [id number] Calcium [Mass/Vol] 9.8 mg/dL Normal 8.4-10.2 [facility] Comment on above: Performed By: #### P CR #### Testing performed at [place] [id number] Chloride [Moles/Vol] 101 mmol/L Normal 98-[address] [facility] Comment on above: Result Comment: Osman solorio note: Triglyceride levels of 600mg/dL or higher may positively bias chloride results by approximately 2.1 mmol Performed By: #### P CR #### Testing performed at [place] [id number] CO2 [Moles/Vol] 28 mmol/L Normal 22-30 [facility] Comment on above: Performed By: #### P CR #### Testing performed at [address] [address] Creatinine [Mass/Vol] 1.70 mg/dL High 0.70-1.20 [facility] Comment on above: Performed By: #### P CR #### Testing performed at [address] [address] GFR Information Average GFR for 60-69 years old = 85. Normal [facility] Comment on above: Result Comment: [employer] mindy Kidney disease, GFR = <60. Kidney failure, GFR = <15. The GFR estimate is not adjusted for extreme body surface area or acute process, nor has it been validated for women or ethnic groups other than and . Performed By: #### P CR #### Testing performed at [place] [id number] GFR/1.73 sq M.predicted MDRD (S/P/Bld) [Vol rate/Area] 32 mL/min/{1.73_m2} Normal [facility] Comment on above: Performed By: #### P CR #### Testing performed at [address] [address] Glucose [Mass/Vol] 79 mg/dL Normal 70-100 [facility] Comment on above: Result Comment: NORMAL <100 mg/dL PREDIABETES 101-126 mg/dL DIABETES 126 mg/dL or higher Performed By: #### P CR #### Testing performed at [address] [address] PHOSPHOROUS 3.5 MG/DL Normal 2.5-4.5 [facility] Comment on above: Performed By: #### P CR #### Testing performed at [address] [address] Potassium [Moles/Vol] 4.1 mmol/L Normal 3.5-5.1 [facility] Comment on above: Performed By: #### P CR #### Testing performed at [address] [address] Sodium [Moles/Vol] 139 mmol/L Normal 137-145 [facility] Comment on above: Performed By: #### P CR #### Testing performed at [address] [address] Urea nitrogen [Mass/Vol] 24 mg/dL High 7-20 [facility] Comment on above: Performed By: #### P CR #### Testing performed at [address] [address] URINE MACROSCOPICon 03-21-20 25 Bilirubin Ql (U) Negative Normal NEGATIVE [facility] Comment on above: Performed By: #### P CR #### Testing performed at [address] [address] Clarity (U) CLEAR Normal CLEAR [facility] Comment on above: Performed By: #### P CR #### Testing performed at [address] [address] Color (U) YELLOW Normal YELLOW [facility] Comment on above: Performed By: #### P CR #### Testing performed at [address] [place] [address] Glucose Ql (U) 500 mg/dl Abnormal NEGATIVE [facility] Comment on above: Performed By: #### P CR #### Testing performed at [address] [address] pH (U) 6.0 [pH] Normal 5.0-7.0 [facility] Comment on above: Performed By: #### P CR #### Testing performed at [address] [address] URINE HEMOGLOBIN Negative Normal NEGATIVE [facility] Comment on above: Performed By: #### P CR #### Testing performed at [address] [address] URINE KETONE Negative Normal NEGATIVE [facility] Comment on above: Performed By: #### P CR #### Testing performed at [address] [address] URINE LEUKOTEST Negative Normal NEGATIVE [facility] Comment on above: Performed By: #### P CR #### Testing performed at [address] [address] URINE NITRATES Negative Normal NEGATIVE [facility] Comment on above: Performed By: #### P CR #### Testing performed at [address] [address] URINE SPEC GRAVITY 1.020 Normal 1.010-1.025 [facility] Comment on above: Performed By: #### P CR #### Testing performed at [address] [address] URINE TOTAL PROTEIN Negative Normal NEGATIVE [facility] Comment on above: Performed By: #### P CR #### Testing performed at [address] [address] Urobilinogen Qn (U) 0.2 {Radha'U}/dL Normal 0.2-1.0 [facility] Comment on above: Performed By: #### P CR #### Testing performed at [address] [address] URINE MICROSCOPICon 03-21-20 25 BACTERIA 1+ Abnormal NEGATIVE [facility] Comment on above: Performed By: #### P CR #### Testing performed at [address] [address] CASTS NONE Normal NONE [facility] Comment on above: Performed By: #### P CR #### Testing performed at [address] [address] CRYSTAL NONE Normal NONE [facility] Comment on above: Performed By: #### P CR #### Testing performed at [address] [address] Epithelial cells LM Ql (Urine sed) 1 TO 5 Normal [facility] Comment on above: Performed By: #### P CR #### Testing performed at [address] [address] Mucus Ql (Urine sed) Negative Normal NEGATIVE [facility] Comment on above: Performed By: #### P CR #### Testing performed at [address] [address] URINE COMMENT CULTURE CRITERIA NOT MET, NO CULTURE PERFORMED. Normal [facility] Comment on above: Performed By: #### P CR #### Testing performed at [address] [address] URINE RBC'S Negative Normal NEGATIVE [facility] Comment on above: Performed By: #### P CR #### Testing performed at [address] [address] URINE WBC'S Negative Normal NEGATIVE [facility] Comment on above: Performed By: #### P CR #### Testing performed at [address] [address] URINE SODIUM RANDOMon 2024 Sodium (U) [Moles/Vol] 85 mmol/L Normal 30-90 [facility] Comment on above: Performed By: #### P CR #### Testing performed at [address] [address] Breast imaging reportOrdered By: Celia Ferreira on 01-19-2025 Study report [facility] Imaging Services [address] [place] [address] SCRN MAMM (CAD)W/CORI BILAT MR#: [id number] Acct: [id number] Name: AZEB HUTCHISON V Rep #: [id number] : 1965 F 59 From: Anny Ferreira MD PCP: Dr. Rehana Hernandez MD Status: REG CLI Study:SCRN MAMM (CAD)W/CORI BILAT Date of Exa m: 01/19/25 Exam# [id number] Ordering Dr: Rehana Hernandez MD EXAM: SCRN MAMM (CAD)W/CORI BILAT 01/19/2025 CLINICAL HISTORY: F, Age 59 y/o , SCREENING TECHNIQUE: Bilateral screening digital breast tomosynthesis with 2D and 3D images. Computeraided detection. COMPARISON: Prior exam(s) dated 01/19/2024, 01/16/2023. FINDINGS: TISSUE DENSITY: The breast tissue is composed of scattered area of fibroglandular density. Bilateral Breast Mammographic Findings: No significant masses, calcifications or other abnormalities are identified. BI/SCRN MAMM (CAD)W/CORI BILAT IMPRESSION: Right Breast: BIRADS 1 NEGATIVE. Left Breast: BIRADS 1 NEGATIVE. OVERALL FINAL ASSESSMENT: BIRADS 1 NEGATIVE. RECOMMENDATION: Routine annual follow-up in 1 Year A letter with findings and recommendations will be mailed to the patient. Reading Location: [facility] CC: Dr. Rehana Hernandez MD ~ Desk Attendant: Signed [facility] SCRN MAMM (CAD)W/CORI BILATo n 01-19-2025 SCRN MAMM (CAD)W/CORI BILAT [facility] Imaging Services [address] [place] [id number] SCRN MAMM (CAD)W/CORI BILAT MR#: [id number] Acct: [id number] Name: AZEB HUTCHISON V Rep #: [id number] : 1965 F 59 From: Celia Ferreira MD PCP: Dr. Rehana Hernandez MD Status: REG CLI Study: SCRN MAMM (CAD)W/CORI BILAT Date of Exam: 01/04 03/30 Exam# [id number] Ordering Dr: Rehana Hernandez MD EXAM: SCRN MAMM (CAD)W/CORI BILAT 01/19/2025 CLINICAL HISTORY: F, Age 59 y/o , SCREENING TECHNIQUE: Bilateral screening digital breast tomosynthesis with 2D and 3D images. Computer aided detection. COMPARISON: Prior exam(s) dated 01/19/2024, 01/16/2023. FINDINGS: TISSUE DENSITY: The breast tissue is composed of scattered area of fibroglandular density. Bilateral Breast Mammographic Findings: No significant masses, calcifications or other abnormalities are identified. BI/SCRN MAMM (CAD)W/CORI BILAT IMPRESSION: Right Breast: BIRADS 1 NEGATIVE. Left Breast: BIRADS 1 NEGATIVE. OVERALL FINAL ASSESSMENT: BIRADS 1 NEGATIVE. RECOMMENDATION: Routine annual follow-up in 1 Year A letter with findings and recommendations will be mailed to the patient. Reading Location: [facility] CC: Dr. Rehana Hernandez MD Desk Attendant: Signed Normal [facility] CBCon 12-14-2024 ABSOLUTE BAS 0.0 10*3/uL Normal 0.0-0.2 [facility] Comment on above: Performed By: #### P CR #### Testing performed at [address] [address] ABSOLUTE EOS 0.1 10*3/uL Normal 0.0-0.7 [facility] Comment on above: Performed By: #### P CR #### Testing performed at [address] [address] ABSOLUTE NEUTROPHIL COUNT 2.7 10*3/uL Normal 1.4-6.5 [facility] Comment on above: Performed By: #### P CR #### Testing performed at [address] [address] Basophils/100 WBC (Bld) 0.3 % Normal 0.0-2.0 [facility] Comment on above: Performed By: #### P CR #### Testing performed at [address] [address] DTYPE AUTO DIFF Normal [facility] Comment on above: Performed By: #### P CR #### Testing performed at [address] [address] Eosinophils/100 WBC (Bld) 1.9 % Normal 0.0-11.0 [facility] Comment on above: Performed By: #### P CR #### Testing performed at [address] [address] Lymphocytes (Bld) [#/Vol] 1.9 10*3/uL Normal 1.2-3.4 [facility] Comment on above: Performed By: #### P CR #### Testing performed at [address] [address] Lymphocytes/100 WBC (Bld) 38.6 % Normal 20.0-55.0 [facility] Comment on above: Performed By: #### P CR #### Testing performed at [address] [address] Monocytes (Bld) [#/Vol] 0.3 10*3/uL Normal 0.0-0.7 [facility] Comment on above: Performed By: #### P CR #### Testing performed at [address] [address] Monocytes/100 WBC (Bld) 5.6 % Normal 0.0-10.0 [facility] Comment on above: Performed By: #### P CR #### Testing performed at [address] [address] Neutrophils/100 WBC (Bld) 53.6 % Normal 37.0-75.0 [facility] Comment on above: Performed By: #### P CR #### Testing performed at [address] [address] Erythrocyte distribution width (RBC) [Ratio] 14.7 % High 11.5-14.5 [facility] Comment on above: Performed By: #### P CR #### Testing performed at [address] [address] Hematocrit (Bld) [Volume fraction] 43.5 % Normal 36.0-48.0 [facility] Comment on above: Performed By: #### P CR #### Testing performed at [address] [address] Hemoglobin (Bld) [Mass/Vol] 14.4 g/dL Normal 12.0-16.0 [facility] Comment on above: Performed By: #### P CR #### Testing performed at [address] [address] MCH (RBC) [Entitic mass] 30.7 pg Normal 26.0-35.0 [facility] Comment on above: Performed By: #### P CR #### Testing performed at [address] [address] MCHC (RBC) [Mass/Vol] 33.0 g/dL Normal 27.0-37.0 [facility] Comment on above: Performed By: #### P CR #### Testing performed at [address] [address] MCV (RBC) [Entitic vol] 93.0 fL Normal 80.0-100.0 [facility] Comment on above: Performed By: #### P CR #### Testing performed at [address] [address] Platelet mean volume (Bld) [Entitic vol] 7.7 fL Normal 7.4-11.0 [facility] Comment on above: Performed By: #### P CR #### Testing performed at [address] [address] Platelets (Bld) [#/Vol] 326 10*3/uL Normal 130-400 [facility] Comment on above: Performed By: #### P CR #### Testing performed at [address] [address] RBC (Bld) [#/Vol] 4.68 10*6/uL Normal 4.0-5.4 [facility] Comment on above: Performed By: #### P CR #### Testing performed at [address] [address] WBC (Bld) [#/Vol] 5.0 10*3/uL Normal 3.6-11.0 [facility] Comment on above: Performed By: #### P CR #### Testing performed at [address] [address] MAGNESIUMon 12-14-2024 Magnesium [Mass/Vol] 2.1 mg/dL Normal 1.6-2.[address] [facility] Comment on above: Performed By: #### P CR #### Testing performed at [address] [address] MALB/CREAT RATIO,URINEon MALB/CREAT RATIO,URINE 73.3 mg MALB/g CREAT High 1.3 -30.0 [facility] Comment on above: Performed By: #### U YENY, MCRAT, UNAR, UMAC #### Testing performed at [address] [address] URINE CREATININE RANDOM 124.2 MG/DL Normal [facility] Comment on above: Result Comment: NO N ORMAL VALUES ESTABLISHED FOR RANDOM SPECIMENS Performed By: #### U YENY, MCRAT, UNAR, UMAC #### Testing performed at [address] [address] MICROALBUMIN,RANDOM URINE 91.1 mg/L High 0.0-16.7 [facility] Comment on above: Performed By: #### U YENY, MCRAT, UNAR, UMAC #### Testing performed at [address] [address] PROTEIN CREATININE RATIOon 0 12-14-2024 PROTEIN CREATININE RATIO 0.1 Normal [facility] Comment on above: Result Comment: REFERENCE RANGES <0.2 NORMAL 0.2-3.5 NON-NEPHROTIC >3.5 NEPHROTIC Performed By: #### P CR #### Testing performed at [address] [address] URINE CREATININE RANDOM 125.7 MG/DL Normal [facility] Comment on above: Result Comment: NO N ORMAL VALUES ESTABLISHED FOR RANDOM SPECIMENS Performed By: #### P CR #### Testing performed at [address] [address] URINE TP RANDOM 17 MG/DL High 0-12 [facility] Comment on above: Performed By: #### P CR #### Testing performed at [address] [address] RENAL PANEL,FASTINGon 2024 ALBUMIN 4.0 G/dl Normal 3.5-5.0 [facility] Comment on above: Performed By: #### P CR #### Testing performed at [address] [address] Calcium [Mass/Vol] 9.2 mg/dL Normal 8.4-10.2 [facility] Comment on above: Performed By: #### P CR #### Testing performed at [address] [address] Chloride [Moles/Vol] 108 mmol/L High 98-[address] [facility] Comment on above: Result Comment: Osman solorio note: Triglyceride levels of 600mg/dL or higher may positively bias chloride results by approximately 2.1 mmol Performed By: #### P CR #### Testing performed at [address] [address] CO2 [Moles/Vol] 23 mmol/L Normal 22-30 [facility] Comment on above: Performed By: #### P CR #### Testing performed at [address] [address] Creatinine [Mass/Vol] 1.50 mg/dL High 0.70-1.20 [facility] Comment on above: Performed By: #### P CR #### Testing performed at [address] [address] EST. GFR, 46 ml/min/1.73sq.m [facility] Comment on above: Performed By: #### P CR #### Testing performed at [address] [address] EST. GFR,Non 38 ml/min/1.73sq.m [facility] Comment on above: Performed By: #### P CR #### Testing performed at [address] [address] GFR Information Average GFR for 60-69 years old = 85. [facility] Comment on above: Result Comment: [employer] mindy Kidney disease, GFR = <60. Kidney failure, GFR = <15. The GFR estimate is not adjusted for extreme body surface area or acute process, nor has it been validated for women or ethnic groups other than and . Performed By: #### P CR #### Testing performed at [address] [address] Glucose [Mass/Vol] 109 mg/dL High 70-100 [facility] Comment on above: Result Comment: NORMAL <100 mg/dL PREDIABETES 101-126 mg/dL DIABETES 126 mg/dL or higher Performed By: #### P CR #### Testing performed at [address] [address] PHOSPHOROUS 3.3 MG/DL Normal 2.5-4.5 [facility] Comment on above: Performed By: #### P CR #### Testing performed at [address] [address] Potassium [Moles/Vol] 4.1 mmol/L Normal 3.5-5.1 [facility] Comment on above: Performed By: #### P CR #### Testing performed at [address] [address] Sodium [Moles/Vol] 142 mmol/L Normal 137-145 [facility] Comment on above: Performed By: #### P CR #### Testing performed at [address] [address] Urea nitrogen [Mass/Vol] 14 mg/dL Normal 7-20 [facility] Comment on above: Performed By: #### P CR #### Testing performed at [address] [address] URINE MACROSCOPICon 12-15-19 25 Bilirubin Ql (U) Negative Normal NEGATIVE [facility] Comment on above: Performed By: #### U YENY, MCRAT, UNAR, UMAC #### Testing performed at [address] [address] Clarity (U) CLEAR Normal CLEAR [facility] Comment on above: Performed By: #### U YENY, MCRAT, UNAR, UMAC #### Testing performed at [address] [address] Color (U) YELLOW Normal YELLOW [facility] Comment on above: Performed By: #### U YENY, MCRAT, UNAR, UMAC #### Testing performed at [address] [address] Glucose Ql (U) 500 mg/dl Abnormal NEGATIVE [facility] Comment on above: Performed By: #### U YENY, MCRAT, UNAR, UMAC #### Testing performed at [address] [address] pH (U) 6.0 [pH] Normal 5.0-7.0 [facility] Comment on above: Performed By: #### U YENY, MCRAT, UNAR, UMAC #### Testing performed at [address] [address] Protein (U) [Mass/Vol] 30 mg/dL Abnormal NEGATIVE [facility] Comment on above: Performed By: #### U YENY, MCRAT, UNAR, UMAC #### Testing performed at [address] [address] URINE HEMOGLOBIN TRACE-INTACT Abnormal NEGATIVE [facility] Comment on above: Performed By: #### U YENY, MCRAT, UNAR, UMAC #### Testing performed at [address] [place] [address] URINE KETONE Negative Normal NEGATIVE [facility] Comment on above: Performed By: #### U YENY, MCRAT, UNAR, UMAC #### Testing performed at [address] [place] [address] URINE LEUKOTEST Negative Normal NEGATIVE [facility] Comment on above: Performed By: #### U YENY, MCRAT, UNAR, UMAC #### Testing performed at [address] [address] URINE NITRATES Negative Normal NEGATIVE [facility] Comment on above: Performed By: #### U YENY, MCRAT, UNAR, UMAC #### Testing performed at [address] [address] URINE SPEC GRAVITY 1.020 Normal 1.010-1.025 [facility] Comment on above: Performed By: #### U YENY, MCRAT, UNAR, UMAC #### Testing performed at [address] [address] Urobilinogen Qn (U) 0.2 {Radha'U}/dL Normal 0.2-1.0 [facility] Comment on above: Performed By: #### U YENY, MCRAT, UNAR, UMAC #### Testing performed at [address] [address] URINE MICROSCOPICon 12-15-19 25 Bacteria LM.HPF (Urine sed) [#/Area] Negative Normal NEGATIVE [facility] Comment on above: Performed By: #### U YENY, MCRAT, UNAR, UMAC #### Testing performed at [address] [address] CASTS NONE Normal NONE [facility] Comment on above: Performed By: #### U YENY, MCRAT, UNAR, UMAC #### Testing performed at [place] [id number] CRYSTAL NONE Normal NONE [facility] Comment on above: Performed By: #### U YENY, MCRAT, UNAR, UMAC #### Testing performed at [address] [address] Epithelial cells LM Ql (Urine sed) 1 TO 5 Normal [facility] Comment on above: Performed By: #### U YENY, MCRAT, UNAR, UMAC #### Testing performed at [address] [address] Mucus Ql (Urine sed) Negative Normal NEGATIVE [facility] Comment on above: Performed By: #### U YENY, MCRAT, UNAR, UMAC #### Testing performed at [address] [address] URINE COMMENT CULTURE CRITERIA NOT MET, NO CULTURE PERFORMED. Normal [facility] Comment on above: Performed By: #### U YENY, MCRAT, UNAR, UMAC #### Testing performed at [address] [address] URINE RBC'S 1 TO 5 Normal NEGATIVE [facility] Comment on above: Performed By: #### U YENY, MCRAT, UNAR, UMAC #### Testing performed at [address] [address] URINE WBC'S Negative Normal NEGATIVE [facility] Comment on above: Performed By: #### U YENY, MCRAT, UNAR, UMAC #### Testing performed at [address] [address] URINE SODIUM RANDOMon 2024 Sodium (U) [Moles/Vol] 155 mmol/L High 30-90 [facility] Comment on above: Performed By: #### U YENY, MCRAT, UNAR, UMAC #### Testing performed at [address] [address] Foot min 3 Viewson 5 Foot min 3 Views [facility] [address] [place] [address] Foot min 3 Views MR#: [id number] Acct: [id number] Name: AZEB HUTCHISON V Rep #: [id number] : 1965 F 58 From: Lukasz Velez MD PCP: Dr. Rehana Hernandez MD Status: REG CLI Study: Foot min 3 Views Date of Exam: 11/26/24 Exam# [id number] Ordering Dr: Rehana Hernandez MD PROCEDURE: LEFT FOOT, THREE VIEWS REASON FOR EXAM: Fourth and Fifth toe pain. Left foot hit a door frame. TECHNIQUE: Three view(s) of left foot. COMPARISON: None. FINDINGS: No fractures, dislocations, or subluxations. A small ossicle adjacent to the distal 4th and 5th metatarsals. Soft tissues are unremarkable. RAD/Foot min 3 Views IMPRESSION: No acute osseous abnormalities. Reading Location: [facility] CC: Dr. Rehana Hernandez MD Desk Attendant: Signed Normal [facility] PROTIMEon 09-24-2024 INR Coag (PPP) [Relative time] 0.99 {INR} Normal 0.85-1.10 [facility] Comment on above: Result Comment: 2.0-3.0 THERAPEUTIC RANGE 2.5-3.5 MECHANICAL VALVE RANGE Performed By: #### P T, PTT #### Testing performed at [address] [address] PT Coag (PPP) [Time] 13.2 s Normal 11.8-14.[address] [facility] Comment on above: Performed By: #### P T, PTT #### Testing performed at [address] [address] PTTon 09-24-2024 aPTT Coag (Bld) [Time] 27.8 s Normal 22.4-34.7 [facility] Comment on above: Result Comment: CARDIAC AND PE/DVT THERAPUTIC RANGE 69-97 SEC VASCULAR/THREATENED LIMB THERAPUTIC RANGE 80-112 SEC Performed By: #### P CR #### Testing performed at [address] [address] CBCon 09-13-2024 ABSOLUTE BAS 0.1 10*3/uL Normal 0.0-0.2 [facility] Comment on above: Performed By: #### P CR #### Testing performed at [address] [address] ABSOLUTE EOS 0.1 10*3/uL Normal 0.0-0.7 [facility] Comment on above: Performed By: #### P CR #### Testing performed at [address] [address] ABSOLUTE NEUTROPHIL COUNT 2.8 10*3/uL Normal 1.4-6.5 [facility] Comment on above: Performed By: #### P CR #### Testing performed at [address] [address] Basophils/100 WBC (Bld) 1.1 % Normal 0.0-2.0 [facility] Comment on above: Performed By: #### P CR #### Testing performed at [address] [address] DTYPE AUTO DIFF Normal [facility] Comment on above: Performed By: #### P CR #### Testing performed at [address] [address] Eosinophils/100 WBC (Bld) 2.4 % Normal 0.0-11.0 [facility] Comment on above: Performed By: #### P CR #### Testing performed at [address] [address] Lymphocytes (Bld) [#/Vol] 2.2 10*3/uL Normal 1.2-3.4 [facility] Comment on above: Performed By: #### P CR #### Testing performed at [address] [address] Lymphocytes/100 WBC (Bld) 39.8 % Normal 20.0-55.0 [facility] Comment on above: Performed By: #### P CR #### Testing performed at [address] [address] Monocytes (Bld) [#/Vol] 0.4 10*3/uL Normal 0.0-0.7 [facility] Comment on above: Performed By: #### P CR #### Testing performed at [address] [address] Monocytes/100 WBC (Bld) 7.3 % Normal 0.0-10.0 [facility] Comment on above: Performed By: #### P CR #### Testing performed at [address] [address] Neutrophils/100 WBC (Bld) 49.4 % Normal 37.0-75.0 [facility] Comment on above: Performed By: #### P CR #### Testing performed at [address] [address] Erythrocyte distribution width (RBC) [Ratio] 14.5 % Normal 11.5-14.5 [facility] Comment on above: Performed By: #### P CR #### Testing performed at [address] [address] Hematocrit (Bld) [Volume fraction] 45.6 % Normal 36.0-48.0 [facility] Comment on above: Performed By: #### P CR #### Testing performed at [address] [address] Hemoglobin (Bld) [Mass/Vol] 15.3 g/dL Normal 12.0-16.0 [facility] Comment on above: Performed By: #### P CR #### Testing performed at [address] [address] MCH (RBC) [Entitic mass] 31.0 pg Normal 26.0-35.0 [facility] Comment on above: Performed By: #### P CR #### Testing performed at [address] [address] MCHC (RBC) [Mass/Vol] 33.5 g/dL Normal 27.0-37.0 [facility] Comment on above: Performed By: #### P CR #### Testing performed at [address] [address] MCV (RBC) [Entitic vol] 92.4 fL Normal 80.0-100.0 [facility] Comment on above: Performed By: #### P CR #### Testing performed at [address] [address] Platelet mean volume (Bld) [Entitic vol] 7.4 fL Normal 7.4-11.0 [facility] Comment on above: Performed By: #### P CR #### Testing performed at [address] [address] Platelets (Bld) [#/Vol] 297 10*3/uL Normal 130-400 [facility] Comment on above: Performed By: #### P CR #### Testing performed at [address] [address] RBC (Bld) [#/Vol] 4.93 10*6/uL Normal 4.0-5.4 [facility] Comment on above: Performed By: #### P CR #### Testing performed at [address] [address] WBC (Bld) [#/Vol] 5.6 10*3/uL Normal 3.6-11.0 [facility] Comment on above: Performed By: #### P CR #### Testing performed at [address] [address] MAGNESIUMon 09-13-2024 Magnesium [Mass/Vol] 2.2 mg/dL Normal 1.6-2.[address] [facility] Comment on above: Performed By: #### P CR #### Testing performed at [address] [address] MALB/CREAT RATIO,URINEon MALB/CREAT RATIO,URINE 116.1 mg MALB/g CREAT High 1.3-30.0 [facility] Comment on above: Performed By: #### P CR #### Testing performed at [address] [address] URINE CREATININE RANDOM 139.4 MG/DL Normal [facility] Comment on above: Result Comment: NO N ORMAL VALUES ESTABLISHED FOR RANDOM SPECIMENS Performed By: #### P CR #### Testing performed at [address] [address] MICROALBUMIN,RANDOM URINE 161.8 mg/L High 0.0-16.7 [facility] Comment on above: Performed By: #### P CR #### Testing performed at [address] [address] PROTEIN CREATININE RATIOon 1 11-14-2023 PROTEIN CREATININE RATIO 0.2 Normal [facility] Comment on above: Result Comment: REFERENCE RANGES <0.2 NORMAL 0.2-3.5 NON-NEPHROTIC >3.5 NEPHROTIC Performed By: #### P CR #### Testing performed at [address] [address] URINE CREATININE RANDOM 140.3 MG/DL Normal [facility] Comment on above: Result Comment: NO N ORMAL VALUES ESTABLISHED FOR RANDOM SPECIMENS Performed By: #### P CR #### Testing performed at [address] [address] URINE TP RANDOM 28 MG/DL High 0-12 [facility] Comment on above: Performed By: #### P CR #### Testing performed at [address] [address] RENAL PANEL,FASTINGon 2023 ALBUMIN 4.3 G/dl Normal 3.5-5.0 [facility] Comment on above: Performed By: #### P CR #### Testing performed at [address] [address] Calcium [Mass/Vol] 10.0 mg/dL Normal 8.4-10.2 [facility] Comment on above: Performed By: #### P CR #### Testing performed at [address] [address] Chloride [Moles/Vol] 108 mmol/L High 98-[address] [facility] Comment on above: Result Comment: Osman solorio note: Triglyceride levels of 600mg/dL or higher may positively bias chloride results by approximately 2.1 mmol Performed By: #### P CR #### Testing performed at [address] [address] CO2 [Moles/Vol] 28 mmol/L Normal 22-30 [facility] Comment on above: Performed By: #### P CR #### Testing performed at [address] [address] Creatinine [Mass/Vol] 1.68 mg/dL High 0.70-1.20 [facility] Comment on above: Performed By: #### P CR #### Testing performed at [address] [address] EST. GFR, 40 ml/min/1.73sq.m [facility] Comment on above: Performed By: #### P CR #### Testing performed at [address] [address] EST. GFR,Non 33 ml/min/1.73sq.m [facility] Comment on above: Performed By: #### P CR #### Testing performed at [address] [address] GFR Information Average GFR for 60-69 years old = 85. Normal [facility] Comment on above: Result Comment: [employer] mindy Kidney disease, GFR = <60. Kidney failure, GFR = <15. The GFR estimate is not adjusted for extreme body surface area or acute process, nor has it been validated for women or ethnic groups other than and . Performed By: #### P CR #### Testing performed at [address] [address] Glucose [Mass/Vol] 88 mg/dL Normal 70-100 [facility] Comment on above: Result Comment: NORMAL <100 mg/dL PREDIABETES 101-126 mg/dL DIABETES 126 mg/dL or higher Performed By: #### P CR #### Testing performed at [address] [address] PHOSPHOROUS 3.6 MG/DL Normal 2.5-4.5 [facility] Comment on above: Performed By: #### P CR #### Testing performed at [address] [address] Potassium [Moles/Vol] 4.1 mmol/L Normal 3.5-5.1 [facility] Comment on above: Performed By: #### P CR #### Testing performed at [address] [address] Sodium [Moles/Vol] 139 mmol/L Normal 137-145 [facility] Comment on above: Performed By: #### P CR #### Testing performed at [address] [address] Urea nitrogen [Mass/Vol] 16 mg/dL Normal 7-20 [facility] Comment on above: Performed By: #### P CR #### Testing performed at [address] [address] URINE MACROSCOPICon 09-13-20 24 Bilirubin Ql (U) Negative Normal NEGATIVE [facility] Comment on above: Performed By: #### P CR #### Testing performed at [address] [address] Clarity (U) CLEAR Normal CLEAR [facility] Comment on above: Performed By: #### P CR #### Testing performed at [address] [address] Color (U) YELLOW Normal YELLOW [facility] Comment on above: Performed By: #### P CR #### Testing performed at [address] [address] Glucose Ql (U) 500 mg/dl Abnormal NEGATIVE [facility] Comment on above: Performed By: #### P CR #### Testing performed at [address] [address] pH (U) 6.5 [pH] Normal 5.0-7.0 [facility] Comment on above: Performed By: #### P CR #### Testing performed at [address] [address] Protein (U) [Mass/Vol] 30 mg/dL Abnormal NEGATIVE [facility] Comment on above: Performed By: #### P CR #### Testing performed at [address] [address] URINE HEMOGLOBIN Negative Normal NEGATIVE [facility] Comment on above: Performed By: #### P CR #### Testing performed at [address] [address] URINE KETONE Negative Normal NEGATIVE [facility] Comment on above: Performed By: #### P CR #### Testing performed at [address] [place] [address] URINE LEUKOTEST Negative Normal NEGATIVE [facility] Comment on above: Performed By: #### P CR #### Testing performed at [address] [address] URINE NITRATES Negative Normal NEGATIVE [facility] Comment on above: Performed By: #### P CR #### Testing performed at [address] [address] URINE SPEC GRAVITY 1.020 Normal 1.010-1.025 [facility] Comment on above: Performed By: #### P CR #### [place] [address] Urobilinogen Qn (U) 0.2 {Radha'U}/dL Normal 0.2-1.0 [facility] Comment on above: Performed By: #### P CR #### Testing performed at [address] [address] [address] URINE MICROSCOPICon 09-13-20 24 Bacteria LM.HPF (Urine sed) [#/Area] Negative Normal NEGATIVE [facility] Comment on above: Performed By: #### P CR #### Testing performed at [address] [address] CASTS NONE Normal [facility] Comment on above: Performed By: #### P CR #### Testing performed at [address] [address] CRYSTAL NONE Normal [facility] Comment on above: Performed By: #### P CR #### Testing performed at [address] [address] Epithelial cells LM Ql (Urine sed) 1 TO 5 Normal [facility] Comment on above: Performed By: #### P CR #### Testing performed at [address] [address] Mucus Ql (Urine sed) Negative Normal NEGATIVE [facility] Comment on above: Performed By: #### P CR #### Testing performed at [address] [address] URINE COMMENT CULTURE CRITERIA NOT MET, NO CULTURE PERFORMED. [facility] Comment on above: Performed By: #### P CR #### Testing performed at [address] [place] [address] URINE RBC'S Negative Normal NEGATIVE [facility] Comment on above: Performed By: #### P CR #### Testing performed at [address] [address] URINE WBC'S Negative Normal NEGATIVE [facility] Comment on above: Performed By: #### P CR #### Testing performed at [address] [address] URINE SODIUM RANDOMon 2023 Sodium (U) [Moles/Vol] 128 mmol/L High 30-90 [facility] Comment on above: Performed By: #### P CR #### Testing performed at [address] [address] [address] HEAD WITHOUT CONTRASTon 0 07-02-2024 CT HEAD WITHOUT CONTRAST INDICATION: 58 years old; Female. Closed head trauma. TECHNIQUE: CT Head (ax/cor/sag reformats). Ionizing radiation dose reduced via iterative reconstruction/FBP blend and body size kV/mA adjustment. Comparison: None FINDINGS: POSTOPERATIVE CHANGES: None. BRAIN PARENCHYMA: No intraparenchymal or extra-axial hemorrhage. No mass effect. No midline shift or herniation. Normal woodard/white differentiation. VENTRICLES/EXTRA-AXI AL SPACES: Normal for patient's age. There is asymmetry in the size of lateral ventricles with the left being larger than the right. No associated mass effect is seen. This finding is most consistent with developmental asymmetry. SINUSES/MASTOIDS: Sinuses are clear although the maxillary sinuses are not completely included. Mastoids and middle ears are clear. MSK: No displaced or depressed calvarial fracture. OTHER: No hyperdense intraluminal thrombus is present. Vascular calcifications. IMPRESSION: 1. No acute intracranial abnormality. No hemorrhage or mass effect. 2. Vascular calcification. Normal [facility] CT Head WO contraston 2023 IMPRESSION: 1. No acute intracranial abnormality. No hemorrhage or mass effect. 2. Vascular calcification. RADIOLOGY INDICATION: 58 years old; Female. Closed head trauma. TECHNIQUE: CT Head (ax/cor/sag reformats). Ionizing radiation dose reduced via iterative reconstruction/FBP blend and body size kV/mA adjustment. Comparison: None FINDINGS: POSTOPERATIVE CHANGES: None. BRAIN PARENCHYMA: No intraparenchymal or extra-axial hemorrhage. No mass effect. No midline shift or herniation. Normal woodard/white differentiation. VENTRICLES/EXTRA-AXI AL SPACES: Normal for patient's age. There is asymmetry in the size of lateral ventricles with the left being larger than the right. No associated mass effect is seen. This finding is most consistent with developmental asymmetry. SINUSES/MASTOIDS: Sinuses are clear although the maxillary sinuses are not completely included. Mastoids and middle ears are clear. MSK: No displaced or depressed calvarial fracture. OTHER: No hyperdense intraluminal thrombus is present. Vascular calcifications. RADIOLOGY Rashad Ontiveros MD - 07/02/2024 INDICATION: 58 years old; Female. Closed head trauma. TECHNIQUE: CT Head (ax/cor/sag reformats). Ionizing radiation dose reduced via iterative reconstruction/FBP blend and body size kV/mA adjustment. Comparison: None FINDINGS: POSTOPERATIVE CHANGES: None. BRAIN PARENCHYMA: No intraparenchymal or extra-axial hemorrhage. No mass effect. No midline shift or herniation. Normal woodard/white differentiation. VENTRICLES/EXTRA-AXI AL SPACES: Normal for patient's age. There is asymmetry in the size of lateral ventricles with the left being larger than the right. No associated mass effect is seen. This finding is most consistent with developmental asymmetry. SINUSES/MASTOIDS: Sinuses are clear although the maxillary sinuses are not completely included. Mastoids and middle ears are clear. MSK: No displaced or depressed calvarial fracture. OTHER: No hyperdense intraluminal thrombus is present. Vascular calcifications. IMPRESSION IMPRESSION: 1. No acute intracranial abnormality. No hemorrhage or mass effect. 2. Vascular calcification. [facility] Radiology Study observation (narrative) [facility] CT Head WO contrastOrdered B y: Rashad Ontiveros on 07-02-2024 [employer] Work Phone: XR SHOULDER RIGHT 2+ VIEWSon 07-02-2024 XR SHOULDER RIGHT 2+ VIEWS EXAM: XR SHOULDER RIGHT 2+ VIEWS HISTORY: trauma COMPARISON: None. TECHNIQUE: 3 views of the right shoulder were obtained. FINDINGS: No acute fracture or dislocation is seen. The right humeral head is well-seated on the glenoid. There are mild degenerative changes of the right acromioclavicular joint. The coracoclavicular distance is preserved. The imaged lungs are clear. Dental amalgam is noted. IMPRESSION: 1. No acute fracture or dislocation of the right shoulder is seen. If there is concern for internal derangement, a nonemergent outpatient MRI is recommended. Normal [facility] XR Shoulder - right 2 Viewso n 07-02-2024 IMPRESSION: 1. No acute fracture or dislocation of the right shoulder is seen. If there is concern for internal derangement, a nonemergent outpatient MRI is recommended. RADIOLOGY EXAM: XR SHOULDER RIGHT 2+ VIEWS HISTORY: trauma COMPARISON: None. TECHNIQUE: 3 views of the right shoulder were obtained. FINDINGS: No acute fracture or dislocation is seen. The right humeral head is well-seated on the glenoid. There are mild degenerative changes of the right acromioclavicular joint. The coracoclavicular distance is preserved. The imaged lungs are clear. Dental amalgam is noted. RADIOLOGY Francisco J Maria MD - 07/02/2024 EXAM: XR SHOULDER RIGHT 2+ VIEWS HISTORY: trauma COMPARISON: None. TECHNIQUE: 3 views of the right shoulder were obtained. FINDINGS: No acute fracture or dislocation is seen. The right humeral head is well-seated on the glenoid. There are mild degenerative changes of the right acromioclavicular joint. The coracoclavicular distance is preserved. The imaged lungs are clear. Dental amalgam is noted. IMPRESSION IMPRESSION: 1. No acute fracture or dislocation of the right shoulder is seen. If there is concern for internal derangement, a nonemergent outpatient MRI is recommended. [facility] Radiology Study observation (narrative) [facility] XR Shoulder - right 2 ViewsO rdered By: Francisco J Maria on 07-02-2024 [facility] Work Phone: LARGE JOINT/BURSA INJECTION AND/OR ASPIRATION: Tabitha kneeon 06-28-2024 Sawyer Kim, KARLEE 06/28/2024 12:43 PM LARGE JOINT/BURSA INJECTION AND/OR ASPIRATION: L knee Date/Time: 06/28/2024 11:15 AM Performed by: Debra Max DO Authorized by: Debra L Riehm, DO Supporting Documentation Indications: pain Procedure Details: Location: knee - L knee Local Anesthetic: lidocaine 1% and ethyl chloride (cold spray) Total Local Anesthetic: 3 mLs Needle size: 22 G Medication Verification: I have personally verified and performed the final check of the medication(s) used in this procedure prior to administration. The following items were included during the verification process for medication(s) administered: drug name, strength, volume, expiration, physical integrity and appearance of the medication(s). Medications administered: 1 mL triamcinolone 40 MG/ML Patient tolerance: patient tolerated the procedure well with no immediate complications Consent: Consent was obtained prior to the procedure after discussion of the risks, benefits and alternatives, and expected outcomes were discussed with the patient. The possibilities of reaction to medication, bleeding, infection, the need for additional procedures, failure to diagnosis a condition, and creating a complication requiring operation were discussed with the patient. The patient concurred with the proposed plan, giving consent. Preparation: Patient was prepped in the usual sterile fashion. The patient was prepped with alcohol and Betadine. [facility] Radiology Study observation (narrative) [facility] CBCon 06-22-2024 ABSOLUTE BAS 0.0 10*3/uL Normal 0.0-0.2 [facility] Comment on above: Performed By: #### P CR #### Testing performed at [address] [address] ABSOLUTE EOS 0.1 10*3/uL Normal 0.0-0.7 [facility] Comment on above: Performed By: #### P CR #### Testing performed at [address] [address] ABSOLUTE NEUTROPHIL COUNT 3.4 10*3/uL Normal 1.4-6.5 [facility] Comment on above: Performed By: #### P CR #### Testing performed at [address] [address] Basophils/100 WBC (Bld) 0.8 % Normal 0.0-2.0 [facility] Comment on above: Performed By: #### P CR #### Testing performed at [address] [address] DTYPE AUTO DIFF Normal [facility] Comment on above: Performed By: #### P CR #### Testing performed at [address] [address] Eosinophils/100 WBC (Bld) 2.3 % Normal 0.0-11.0 [facility] Comment on above: Performed By: #### P CR #### Testing performed at [address] [address] Lymphocytes (Bld) [#/Vol] 1.8 10*3/uL Normal 1.2-3.4 [facility] Comment on above: Performed By: #### P CR #### Testing performed at [address] [address] Lymphocytes/100 WBC (Bld) 30.6 % Normal 20.0-55.0 [facility] Comment on above: Performed By: #### P CR #### Testing performed at [address] [address] Monocytes (Bld) [#/Vol] 0.4 10*3/uL Normal 0.0-0.7 [facility] Comment on above: Performed By: #### P CR #### Testing performed at [address] [address] Monocytes/100 WBC (Bld) 7.7 % Normal 0.0-10.0 [facility] Comment on above: Performed By: #### P CR #### Testing performed at [address] [address] Neutrophils/100 WBC (Bld) 58.6 % Normal 37.0-75.0 [facility] Comment on above: Performed By: #### P CR #### Testing performed at [address] [address] Erythrocyte distribution width (RBC) [Ratio] 14.4 % Normal 11.5-14.5 [facility] Comment on above: Performed By: #### P CR #### Testing performed at [address] [address] Hematocrit (Bld) [Volume fraction] 45.1 % Normal 36.0-48.0 [facility] Comment on above: Performed By: #### P CR #### Testing performed at [address] [address] Hemoglobin (Bld) [Mass/Vol] 15.2 g/dL Normal 12.0-16.0 [facility] Comment on above: Performed By: #### P CR #### Testing performed at [address] [address] MCH (RBC) [Entitic mass] 31.0 pg Normal 26.0-35.0 [facility] Comment on above: Performed By: #### P CR #### Testing performed at [address] [address] MCHC (RBC) [Mass/Vol] 33.8 g/dL Normal 27.0-37.0 [facility] Comment on above: Performed By: #### P CR #### Testing performed at [address] [address] MCV (RBC) [Entitic vol] 91.9 fL Normal 80.0-100.0 [facility] Comment on above: Performed By: #### P CR #### Testing performed at [address] [address] Platelet mean volume (Bld) [Entitic vol] 7.1 fL Low 7.4-11.0 [facility] Comment on above: Performed By: #### P CR #### Testing performed at [address] [address] Platelets (Bld) [#/Vol] 287 10*3/uL Normal 130-400 [facility] Comment on above: Performed By: #### P CR #### Testing performed at [address] [address] RBC (Bld) [#/Vol] 4.91 10*6/uL Normal 4.0-5.4 [facility] Comment on above: Performed By: #### P CR #### Testing performed at [address] [address] WBC (Bld) [#/Vol] 5.7 10*3/uL Normal 3.6-11.0 [facility] Comment on above: Performed By: #### P CR #### Testing performed at [address] [address] MAGNESIUMon 06-22-2024 Magnesium [Mass/Vol] 2.4 mg/dL High 1.6-2.[address] [facility] Comment on above: Performed By: #### P CR #### Testing performed at [address] [address] MALB/CREAT RATIO,URINEon MALB/CREAT RATIO,URINE 144.5 mg MALB/g CREAT High 1.3-30.0 [facility] Comment on above: Performed By: #### P CR #### Testing performed at [address] [address] MICROALBUMIN,RANDOM URINE 143.6 mg/L High 0.0-16.7 [facility] Comment on above: Performed By: #### P CR #### Testing performed at [address] [address] URINE CREATININE RANDOM 99.4 MG/DL Normal [facility] Comment on above: Result Comment: NO N ORMAL VALUES ESTABLISHED FOR RANDOM SPECIMENS Performed By: #### P CR #### Testing performed at [address] [address] PROTEIN CREATININE RATIOon 0 06-22-2024 PROTEIN CREATININE RATIO 0.3 Normal [facility] Comment on above: Result Comment: REFERENCE RANGES <0.2 NORMAL 0.2-3.5 NON-NEPHROTIC >3.5 NEPHROTIC Performed By: #### P CR #### Testing performed at [address] [address] URINE CREATININE RANDOM 99.3 MG/DL Normal [facility] Comment on above: Result Comment: NO N ORMAL VALUES ESTABLISHED FOR RANDOM SPECIMENS Performed By: #### P CR #### Testing performed at [address] [address] URINE TP RANDOM 28 MG/DL High 0-12 [facility] Comment on above: Performed By: #### P CR #### Testing performed at [address] [address] RENAL PANEL,FASTINGon 2023 ALBUMIN 4.3 G/dl Normal 3.5-5.0 [facility] Comment on above: Performed By: #### P CR #### Testing performed at [address] [address] Calcium [Mass/Vol] 9.9 mg/dL Normal 8.4-10.2 [facility] Comment on above: Performed By: #### P CR #### Testing performed at [address] [address] Chloride [Moles/Vol] 110 mmol/L High 98-[address] [facility] Comment on above: Result Comment: Osman solorio note: Triglyceride levels of 600mg/dL or higher may positively bias chloride results by approximately 2.1 mmol Performed By: #### P CR #### Testing performed at [address] [address] CO2 [Moles/Vol] 23 mmol/L Normal 22-30 [facility] Comment on above: Performed By: #### P CR #### Testing performed at [address] [address] Creatinine [Mass/Vol] 1.49 mg/dL High 0.70-1.20 [facility] Comment on above: Performed By: #### P CR #### Testing performed at [address] [address] EST. GFR, 46 ml/min/1.73sq.m [facility] Comment on above: Performed By: #### P CR #### Testing performed at [address] [address] EST. GFR,Non 38 ml/min/1.73sq.m [facility] Comment on above: Performed By: #### P CR #### Testing performed at [address] [address] GFR Information Average GFR for 60-69 years old = 85. Normal [facility] Comment on above: Result Comment: [employer] mindy Kidney disease, GFR = <60. Kidney failure, GFR = <15. The GFR estimate is not adjusted for extreme body surface area or acute process, nor has it been validated for women or ethnic groups other than and . Performed By: #### P CR #### Testing performed at [address] [address] Glucose [Mass/Vol] 80 mg/dL Normal 70-100 [facility] Comment on above: Result Comment: NORMAL <100 mg/dL PREDIABETES 101-126 mg/dL DIABETES 126 mg/dL or higher Performed By: #### P CR #### Testing performed at [address] [address] PHOSPHOROUS 3.7 MG/DL Normal 2.5-4.5 [facility] Comment on above: Performed By: #### P CR #### Testing performed at [address] [address] Potassium [Moles/Vol] 4.2 mmol/L Normal 3.5-5.1 [facility] Comment on above: Performed By: #### P CR #### Testing performed at [address] [address] Sodium [Moles/Vol] 140 mmol/L Normal 137-145 [facility] Comment on above: Performed By: #### P CR #### Testing performed at [address] [address] Urea nitrogen [Mass/Vol] 21 mg/dL High 7-20 [facility] Comment on above: Performed By: #### P CR #### Testing performed at [address] [address] URINE MACROSCOPICon 06-22-20 24 Bilirubin Ql (U) Negative Normal NEGATIVE [facility] Comment on above: Performed By: #### U YENY, MCRAT, UMAC, UNAR ####Testing performed at [address] [address] Clarity (U) CLEAR Normal CLEAR [facility] Comment on above: Performed By: #### U YENY, MCRAT, UMAC, UNAR ####Testing performed at [address] [place] [address] Color (U) YELLOW Normal YELLOW [facility] Comment on above: Performed By: #### U YENY, MCRAT, UMAC, UNAR ####Testing performed at [address] [place] [address] Glucose Ql (U) Negative Normal NEGATIVE [facility] Comment on above: Performed By: #### U YENY, MCRAT, UMAC, UNAR ####Testing performed at [address] [address] pH (U) 5.5 [pH] Normal 5.0-7.0 [facility] Comment on above: Performed By: #### U YENY, MCRAT, UMAC, UNAR ####Testing performed at [address] [address] URINE HEMOGLOBIN TRACE-LYSED Abnormal NEGATIVE [facility] Comment on above: Performed By: #### U YENY, MCRAT, UMAC, UNAR ####Testing performed at [address] [address] URINE KETONE Negative Normal NEGATIVE [facility] Comment on above: Performed By: #### U YENY, MCRAT, UMAC, UNAR ####Testing performed at [address] [address] URINE LEUKOTEST Negative Normal NEGATIVE [facility] Comment on above: Performed By: #### U YENY, MCRAT, UMAC, UNAR ####Testing performed at [address] [address] URINE NITRATES Negative Normal NEGATIVE [facility] Comment on above: Performed By: #### U YENY, MCRAT, UMAC, UNAR ####Testing performed at [address] [address] URINE SPEC GRAVITY 1.025 Normal 1.010-1.025 [facility] Comment on above: Performed By: #### U YENY, MCRAT, UMAC, UNAR ####Testing performed at [address] [address] URINE TOTAL PROTEIN TRACE Abnormal NEGATIVE [facility] Comment on above: Performed By: #### U YENY, MCRAT, UMAC, UNAR ####Testing performed at [address] [address] Urobilinogen Qn (U) 0.2 {Radha'U}/dL Normal 0.2-1.0 [facility] Comment on above: Performed By: #### U YENY, MCRAT, UMAC, UNAR ####Testing performed at [address] [address] URINE MICROSCOPICon 06-22-20 24 BACTERIA TRACE Abnormal NEGATIVE [facility] Comment on above: Performed By: #### U YENY, MCRAT, UMAC, UNAR ####[place] [address] CASTS NONE Normal [facility] Comment on above: Performed By: #### U YENY, MCRAT, UMAC, UNAR ####[place] [address] CRYSTAL NONE Normal NONE [facility] Comment on above: Performed By: #### U YENY, MCRAT, UMAC, UNAR ####[place] [address] Epithelial cells LM Ql (Urine sed) NONE Normal [facility] Comment on above: Performed By: #### U YENY, MCRAT, UMAC, UNAR ####[place] [address] Mucus Ql (Urine sed) Negative Normal NEGATIVE [facility] Comment on above: Performed By: #### U YENY, MCRAT, UMAC, UNAR ####[place] [address] URINE COMMENT CULTURE CRITERIA NOT MET, NO CULTURE PERFORMED. Normal [facility] Comment on above: Performed By: #### U YENY, MCRAT, UMAC, UNAR ####[place] [address] URINE RBC'S 1 TO 5 Normal NEGATIVE [facility] Comment on above: Performed By: #### U YENY, MCRAT, UMAC, UNAR ####[place] [address] URINE WBC'S Negative Normal NEGATIVE [facility] Comment on above: Performed By: #### U YENY, MCRAT, UMAC, UNAR ####Testing performed at [place] [id number] URINE SODIUM RANDOMon 2023 Sodium (U) [Moles/Vol] 155 mmol/L High 30-90 [facility] Comment on above: Performed By: #### U YENY, MCRAT, UMAC, UNAR ####Testing performed at [facility] [place] [address] LARGE JOINT/BURSA INJECTION AND/OR ASPIRATION: Tabitha kneeon 03-05-2024 Colleen Mcnair 03/05/2024 4:17 PM LARGE JOINT/BURSA INJECTION AND/OR ASPIRATION: L knee Date/Time: 03/05/2024 2:30 PM Performed by: Debra Max DO Authorized by: Debra Max DO Supporting Documentation Indications: pain Procedure Details: Location: knee - L knee Local Anesthetic: ethyl chloride (cold spray) and lidocaine 1% Total Local Anesthetic: 3 mLs Needle size: 22 G Medication Verification: I have personally verified and performed the final check of the medication(s) used in this procedure prior to administration. The following items were included during the verification process for medication(s) administered: drug name, strength, volume, expiration, physical integrity and appearance of the medication(s). Medications administered: 1 mL triamcinolone 40 MG/ML Patient tolerance: patient tolerated the procedure well with no immediate complications Consent: Consent was obtained prior to the procedure after discussion of the risks, benefits and alternatives, and expected outcomes were discussed with the patient. The possibilities of reaction to medication, bleeding, infection, the need for additional procedures, failure to diagnosis a condition, and creating a complication requiring operation were discussed with the patient. The patient concurred with the proposed plan, giving consent. Preparation: Patient was prepped in the usual sterile fashion. [facility] Radiology Study observation (narrative) [facility] MR Knee - left WO contraston 02-04-2024 IMPRESSION: 1. No acute displaced fracture or dislocation of the left knee. 2. 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 3. Very subtle blunting of the free edge of the body segment of the left medial meniscus, possibly subtle radial tear. The left lateral meniscus is intact. 4. Intact left knee cruciate and collateral ligaments. Mild thickening of the proximal left medial collateral ligament may be sequela of prior sprain. 5. Trace left knee effusion without large popliteal cyst. RADIOLOGY EXAM: MRI KNEE LEFT WITHOUT CONTRAST HISTORY: Left knee pain for 6 to 8 weeks. No known injury. COMPARISON: Comparison made to left knee radiographs dated 02/07/2023. TECHNIQUE: Multiplanar, multisequence imaging of the left knee was performed without administration of intravenous or intra-articular gadolinium contrast. FINDINGS: There is no acute displaced fracture or dislocation of the left knee. Bone marrow signal is normal. There is chondrosis at the medial trochlea with mild chondral irregularity and chondral thinning There is very subtle blunting of the free edge of the body segment of the left medial meniscus, possibly representing a subtle radial tear. The lateral meniscus demonstrates normal morphology and signal without tear. The anterior and posterior cruciate ligaments are intact. The extensor mechanism, including the quadriceps and patellar tendons, is normal. The medial collateral ligament and the lateral collateral ligament complex are intact. There is mild thickening of the proximal left medial collateral ligament, likely sequela of prior sprain. There is a trace left knee effusion. There is only trace fluid within the posterior joint recess without large popliteal cyst. There is a nonspecific focus of T1 hypointense/STIR hyperintense signal posterior to the distal left femur and just deep to the adjacent popliteal vessels. [facility] - [facility]04[facility]24 EXAM: MRI KNEE LEFT WITHOUT CONTRAST HISTORY: Left knee pain for 6 to 8 weeks. No known injury. COMPARISON: Comparison made to left knee radiographs dated 02/07/2023. TECHNIQUE: Multiplanar, multisequence imaging of the left knee was performed without administration of intravenous or intra-articular gadolinium contrast. FINDINGS: There is no acute displaced fracture or dislocation of the left knee. Bone marrow signal is normal. There is chondrosis at the medial trochlea with mild chondral irregularity and chondral thinning There is very subtle blunting of the free edge of the body segment of the left medial meniscus, possibly representing a subtle radial tear. The lateral meniscus demonstrates normal morphology and signal without tear. The anterior and posterior cruciate ligaments are intact. The extensor mechanism, including the quadriceps and patellar tendons, is normal. The medial collateral ligament and the lateral collateral ligament complex are intact. There is mild thickening of the proximal left medial collateral ligament, likely sequela of prior sprain. There is a trace left knee effusion. There is only trace fluid within the posterior joint recess without large popliteal cyst. There is a nonspecific focus of T1 hypointense/STIR hyperintense signal posterior to the distal left femur and just deep to the adjacent popliteal vessels. IMPRESSION IMPRESSION: 1. No acute displaced fracture or dislocation of the left knee. 2. 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 3. Very subtle blunting of the free edge of the body segment of the left medial meniscus, possibly subtle radial tear. The left lateral meniscus is intact. 4. Intact left knee cruciate and collateral ligaments. Mild thickening of the proximal left medial collateral ligament may be sequela of prior sprain. 5. Trace left knee effusion without large popliteal cyst. [facility] MR Knee - left WO contrastOr dered By: Rashad Silverio on 02-04-2024 [employer] Work Phone: MR Knee - left WO contraston 02-03-2024 [facility]iology [facility] (narrative) [facility] BONE DENSITY AXIAL (HIP, PEL VIS, SPINE)on 10-23-2023 IMPRESSION: According to the WHO criteria, the above patient is classified as osteopenic. There is an increased risk of fracture. These findings are primarily based on the lowest lumbar spine measurement. RECOMMENDATIONS: 1. Follow-up in 1 to 2 years. 2. Weight bearing exercise 3 time a week. 3. Vitamin D and dietary calcium supplements. RADIOLOGY EXAM: BONE DENSITY AXIAL (HIP, PELVIS, SPINE) HISTORY: Screening for osteopenia/osteoporo sis. COMPARISON: None FINDINGS: The combined mean bone mineral density of the evaluated lumbar vertebrae is calculated at 0.968 gm/cm2. This corresponds to a young adult T-score of -1.8. The combined mean bone mineral densitometry of the left femur is calculated at 0.923 gm/cm2. This corresponds to a young adult T-score of -0.7. The lowest bone mineral density is measured in the left femoral neck at approximately 0.93 gm/cm2 and corresponds to a T-score of approximately -0.7. RADIOLOGY Ezekiel Stacy, DO Hardik - 10/23/2023 EXAM: BONE DENSITY AXIAL (HIP, PELVIS, SPINE) HISTORY: Screening for osteopenia/osteoporo sis. COMPARISON: None FINDINGS: The combined mean bone mineral density of the evaluated lumbar vertebrae is calculated at 0.968 gm/cm2. This corresponds to a young adult T-score of -1.8. The combined mean bone mineral densitometry of the left femur is calculated at 0.923 gm/cm2. This corresponds to a young adult T-score of -0.7. The lowest bone mineral density is measured in the left femoral neck at approximately 0.93 gm/cm2 and corresponds to a T-score of approximately -0.7. IMPRESSION IMPRESSION: According to the WHO criteria, the above patient is classified as osteopenic. There is an increased risk of fracture. These findings are primarily based on the lowest lumbar spine measurement. RECOMMENDATIONS: 1. Follow-up in 1 to 2 years. 2. Weight bearing exercise 3 time a week. 3. Vitamin D and dietary calcium supplements. [facility] Radiology Study observation (narrative) [facility] BONE DENSITY AXIAL (HIP, PEL VIS, SPINE)Ordered By: Hardik Falcon on 10-23-2023 [facility] Work Phone: Absolute lymphocyte countOrd ered By: Letha Hebert on 08-12-2023 Lymphocytes Auto (Unsp spec) [#/Vol] 1.25 10*3/uL 0.83-4.51 [facility] Basophil percentageOrdered B y: Letha Hebert on 08-12-2023 Basophils/100 WBC (Bld) 1.1 % 0-1 [facility] Chloride [Moles/Vol] 114 mmol/L 98-107 [facility] Eosinophils/100 WBC (Bld) 4.8 % 0-5 [facility] Glucose [Mass/Vol] 99 mg/dL 74-106 [facility] Neutrophils (Bld) [#/Vol] 1.6 10*3/uL 2.0-7.7 [facility] Neutrophils/100 WBC (Bld) 44.9 % 47-70 [facility] Potassium [Moles/Vol] 3.7 mmol/L 3.5-5.1 [facility] Sodium [Moles/Vol] 142 mmol/L 136-145 [facility] WBC (Bld) [#/Vol] 3.5 10*3/uL 4.4-11.0 [facility] Blood erythrocytes count (nu mber/volume)Ordered By: Letha Hebert on 08-12-2023 RBC (Bld) [#/Vol] 4.15 10*6/uL 4.2-5.4 [facility] Blood hemoglobin measurement (mass/volume)Ordered By: Letha Hebert on 08-12-2023 Hemoglobin (Bld) [Mass/Vol] 12.4 g/dL 12.0-15.0 [facility] Blood lymphocytes/100 leukoc ytesOrdered By: Letha Hebert on 08-12-2023 Lymphocytes/100 WBC (Bld) 35.3 % 19-41 [facility] Blood monocytes/100 leukocyt esOrdered By: Letha Hebert on 08-12-2023 Monocytes/100 WBC (Bld) 13.6 % 0-10 [facility] Blood platelet mean volumeOr dered By: Letha Hebert on 08-12-2023 Platelet mean volume (Bld) [Entitic vol] 8.9 fL 6.2-12.0 [facility] Determination of erythrocyte mean corpuscular volume (MCV)Ordered By: Letha Hebert on 08-12-2023 MCV (RBC) [Entitic vol] 91.6 fL 81-99 [facility] Hematocrit Auto (Bld) [Volum e fraction]Ordered By: Letha Hebert on 08-12-2023 Hematocrit (Bld) [Volume fraction] 38.0 % 37-47 [facility] Laboratory - Chemistry and C hemistry - challengeOrdered By: Letha Hebert on 08-12-2023 CO2 [Moles/Vol] 25.0 mmol/L 21.0-32.0 [facility] Urea nitrogen/Creatinine [Mass ratio] 4.2 mg/mg 10-20 [facility] Laboratory - Hematology and Cell countsOrdered By: Letha Hebert on 08-12-2023 Erythrocyte distribution width (RBC) [Entitic vol] 44.8 fL 35.1-43.9 [facility] Erythrocyte distribution width (RBC) [Ratio] 13.3 % 11.6-14.6 [facility] Immature granulocytes/100 WBC (Bld) 0.300 % 0.0-0.9 [facility] Comment on above: IG% - Immature Granu locytes (promyelocytes, myelocytes and metamyelocytes) > 1% indicates that a LEFT SHIFT is Present. MCH (RBC) [Entitic mass] 29.9 pg 27.0-32.0 [facility] Nucleated RBC/100 WBC (Bld) [Ratio] 0 % 0-5 [facility] Auto (RBC) [Mass/Vol]Or dered By: Letha Hebert on 08-12-2023 MCHC (RBC) [Mass/Vol] 32.6 g/dL 32-36 [facility] No Panel InformationOrdered By: Letha Hebert on 08-12-2023 Estimated Creatinine Clearance Calc 34.80 ml/min [facility] Estimated GFR (MDRD) Amer 48 mL/min >60 [facility] Comment on above: GFR Calc Estimated GFR (MDRD) Non-Af Amer 40 mL/min >60 [facility] Comment on above: Non- GFR Calc Platelets bldOrdered By: Makenzie Hebert on 08-12-2023 Platelets (Bld) [#/Vol] 279 10*3/uL 150-450 [facility] Serum or plasma calcium anil urement (mass/volume)Ordered By: Letha Hebert on 08-12-2023 Calcium [Mass/Vol] 8.7 mg/dL 8.5-10.1 [facility] Serum or plasma creatinine m easurement (mass/volume)Ordered By: Letha Hebert on 08-12-2023 Creatinine [Mass/Vol] 1.44 mg/dL 0.55-1.02 [facility] Comment on above: The validity of the calculated GFR & GFRAA in patients over 70 years has not been determined. Clinical correlation is essential. Serum or plasma urea nitroge n measurement (mass/volume)Ordered By: Letha Hebert on 08-12-2023 Urea nitrogen [Mass/Vol] 6 mg/dL 7-18 [facility] Thin prep Papanicolaou smear with manual screeningOrdered By: Letha Hebert on 08-12-2023 Thin prep Papanicolaou smear with manual screening 3 5-15 [facility] Basophil percentageOrdered B y: Lizbeth Gaston on 08-09-2023 Basophil percentage 2.8 mg/dL 2.5-4.9 [facility] Laboratory - Chemistry and C hemistry - challengeOrdered By: Lizbeth Gaston on 08-09-2023 Magnesium [Mass/Vol] 1.8 mg/dL 1.6-2.6 [facility] Basophil percentageOrdered B y: Lizbeth Hughes on 08-08-2023 Bilirubin [Mass/Vol] 0.50 mg/dL 0.20-1.00 [facility] Comment on above: For patients on eltr ombopag therapy, use of Dimension [place] TBIL is not recommended. Protein [Mass/Vol] 6.3 g/dL 6.4-8.2 [facility] Laboratory - Chemistry and C hemistry - challengeOrdered By: Lizbeth Hughes on 08-08-2023 ALP [Catalytic activity/Vol] 95 U/L 45-117 [facility] ALT [Catalytic activity/Vol] 14 U/L 13-56 [facility] Globulin (S) [Mass/Vol] 3.5 g/dL 2.2-4.2 [facility] Serum or plasma albumin anil urement (mass/volume)Ordered By: Lizbeth Hughes on 08-08-2023 Albumin [Mass/Vol] 2.8 g/dL 3.2-5.0 [facility] Serum or plasma albumin/glob ulin mass ratioOrdered By: Lizbeth Hughes on 08-08-2023 Albumin/Globulin [Mass ratio] 0.8 {ratio} 0.9-2.4 [facility] Thin prep Papanicolaou smear with manual screeningOrdered By: Lizbeth Hughes on 08-08-2023 Thin prep Papanicolaou smear with manual screening 11 U/L 15-37 [facility] Absolute lymphocyte countOrd ered By: Alexis Shultz on 08-07-2023 Lymphocytes Auto (Unsp spec) [#/Vol] 1.99 10*3/uL 0.83-4.51 [facility] Basophil percentageOrdered B y: Alexis Shultz on 08-07-2023 Basophils/100 WBC (Bld) 0.7 % 0-1 [facility] Chloride [Moles/Vol] 109 mmol/L 98-107 [facility] Eosinophils/100 WBC (Bld) 1.1 % 0-5 [facility] Glucose [Mass/Vol] 86 mg/dL 74-106 [facility] Neutrophils (Bld) [#/Vol] 4.4 10*3/uL 2.0-7.7 [facility] Neutrophils/100 WBC (Bld) 61.7 % 47-70 [facility] Potassium [Moles/Vol] 4.2 mmol/L 3.5-5.1 [facility] Sodium [Moles/Vol] 140 mmol/L 136-145 [facility] WBC (Bld) [#/Vol] 7.2 10*3/uL 4.4-11.0 [facility] Blood erythrocytes count (nu mber/volume)Ordered By: Alexis Shultz on 08-07-2023 RBC (Bld) [#/Vol] 5.32 10*6/uL 4.2-5.4 [facility] Blood hemoglobin measurement (mass/volume)Ordered By: Alexis Shultz on 08-07-2023 Hemoglobin (Bld) [Mass/Vol] 15.6 g/dL 12.0-15.0 [facility] Blood lymphocytes/100 leukoc ytesOrdered By: Alexis Shultz on 08-07-2023 Lymphocytes/100 WBC (Bld) 27.8 % 19-41 [facility] Blood monocytes/100 leukocyt esOrdered By: Alexis Shultz on 08-07-2023 Monocytes/100 WBC (Bld) 8.4 % 0-10 [facility] Blood platelet mean volumeOr dered By: Alexis Shultz on 08-07-2023 Platelet mean volume (Bld) [Entitic vol] 8.6 fL 6.2-12.0 [facility] Determination of erythrocyte mean corpuscular volume (MCV)Ordered By: Alexis Shultz on 08-07-2023 MCV (RBC) [Entitic vol] 88.9 fL 81-99 [facility] Hematocrit Auto (Bld) [Volum e fraction]Ordered By: Alexis Shultz on 08-07-2023 Hematocrit (Bld) [Volume fraction] 47.3 % 37-47 [facility] Laboratory - Chemistry and C hemistry - challengeOrdered By: Alexis Shultz on 08-07-2023 CO2 [Moles/Vol] 26.0 mmol/L 21.0-32.0 [facility] Urea nitrogen/Creatinine [Mass ratio] 10.9 mg/mg 10-20 [facility] Laboratory - Hematology and Cell countsOrdered By: Alexis Shultz on 08-07-2023 Erythrocyte distribution width (RBC) [Entitic vol] 44.3 fL 35.1-43.9 [facility] Erythrocyte distribution width (RBC) [Ratio] 13.6 % 11.6-14.6 [facility] Immature granulocytes/100 WBC (Bld) 0.300 % 0.0-0.9 [facility] Comment on above: IG% - Immature Granu locytes (promyelocytes, myelocytes and metamyelocytes) > 1% indicates that a LEFT SHIFT is Present. MCH (RBC) [Entitic mass] 29.3 pg 27.0-32.0 [facility] Nucleated RBC/100 WBC (Bld) [Ratio] 0 % 0-5 [facility] MCHC Auto (RBC) [Mass/Vol]Or dered By: Alexis Shultz on 08-07-2023 MCHC (RBC) [Mass/Vol] 33.0 g/dL 32-36 [facility] No Panel InformationOrdered By: Alexis Shultz on 08-07-2023 Estimated Creatinine Clearance Calc 32.12 ml/min [facility] Estimated GFR (MDRD) Amer 44 mL/min >60 [facility] Comment on above: GFR Calc Estimated GFR (MDRD) Non-Af Amer 36 mL/min >60 [facility] Comment on above: Non- GFR Calc Platelets bldOrdered By: Chilo Shultz on 08-07-2023 Platelets (Bld) [#/Vol] 315 10*3/uL 150-450 [facility] Serum or plasma calcium anil urement (mass/volume)Ordered By: Alexis Shultz on 08-07-2023 Calcium [Mass/Vol] 9.9 mg/dL 8.5-10.1 [facility] Serum or plasma creatinine m easurement (mass/volume)Ordered By: Alexis Shultz on 08-07-2023 Creatinine [Mass/Vol] 1.56 mg/dL 0.55-1.02 [facility] Comment on above: The validity of the calculated GFR & GFRAA in patients over 70 years has not been determined. Clinical correlation is essential. Serum or plasma urea nitroge n measurement (mass/volume)Ordered By: Alexis Shultz on 08-07-2023 Urea nitrogen [Mass/Vol] 17 mg/dL 7-18 [facility] Thin prep Papanicolaou smear with manual screeningOrdered By: Alexis Shultz on 08-07-2023 Thin prep Papanicolaou smear with manual screening 5 5-15 [facility] XR Thumb - left Viewson IMPRESSION: Negative left thumb. RADIOLOGY EXAM: XR THUMB LEFT HISTORY: R/O FB (Cut on glass) dorsum of IP joint COMPARISON: None. TECHNIQUE: Coned-down AP, lateral and oblique views of the left thumb FINDINGS: There is no evidence of fracture, dislocation, significant degenerative change or obvious radiopaque foreign body. RADIOLOGY Hui Johns, DO - 07/11/2023 EXAM: XR THUMB LEFT HISTORY: R/O FB (Cut on glass) dorsum of IP joint COMPARISON: None. TECHNIQUE: Coned-down AP, lateral and oblique views of the left thumb FINDINGS: There is no evidence of fracture, dislocation, significant degenerative change or obvious radiopaque foreign body. IMPRESSION IMPRESSION: Negative left thumb. [facility] Radiology Study observation (narrative) [facility] XR Thumb - left ViewsOrdered By: Hui Johns on 07-11-2023 [facility] CBC, EDIF, PLATELETon 2022 ABSOLUTE BASOPHIL COUNT 0.1 10*3/uL 0.0 - 0.2 10*3/uL [facility] Basophils/100 WBC (Bld) 1.0 % 0.0 - 2.0 % [facility] Differential cell count method Nom (Bld) AUTO DIFF % [facility] Eosinophils (Bld) [#/Vol] 0.2 10*3/uL 0.0 - 0.7 10*3/uL [facility] Eosinophils/100 WBC (Bld) 2.8 % 0.0 - 11.0 % [facility] Erythrocyte distribution width (RBC) [Ratio] 14.6 % High 11.5 - 14.5 % [facility] Hematocrit (Bld) [Volume fraction] 40.0 % 36.0 - 48.0 % [facility] Hemoglobin (Bld) [Mass/Vol] 13.4 g/dL [facility] Interpretation and review of laboratory results Abnormal [facility] Lymphocytes (Bld) [#/Vol] 2.5 10*3/uL 1.2 - 3.4 10*3/uL [facility] Lymphocytes/100 WBC (Bld) 38.0 % 20.0 - 55.0 % [facility] MCH (RBC) [Entitic mass] 30.5 pg 26.0 - 35.0 PG [facility] MCHC (RBC) [Mass/Vol] 33.3 g/dL [facility] MCV (RBC) [Entitic vol] 91.6 fL [facility] Monocytes (Bld) [#/Vol] 0.5 10*3/uL 0.0 - 0.7 10*3/uL [facility] Monocytes/100 WBC (Bld) 8.2 % 0.0 - 10.0 % [facility] Neutrophils (Bld) [#/Vol] 3.3 10*3/uL 1.4 - 6.5 10*3/uL [facility] Neutrophils/100 WBC (Bld) 50.0 % 37.0 - 75.0 % [facility] Platelet mean volume (Bld) [Entitic vol] 6.9 fL Low [facility] Platelets (Bld) [#/Vol] 313 10*3/uL 130 - 400 10*3/uL [facility] RBC (Bld) [#/Vol] 4.37 10*6/uL 4.0 - 5.4 10*6/uL [facility] WBC (Bld) [#/Vol] 6.6 10*3/uL 3.6 - 11.0 10*3/uL [facility] CHEM 7 (LYTES,BUN,CREA,GLUC) on 01-16-2023 Chloride [Moles/Vol] 108 mmol/L [facility] CO2 [Moles/Vol] 24 mmol/L [facility] Creatinine [Mass/Vol] 1.42 mg/dL High [facility] GFR COMMENT Average GFR for 50-59 years old = 93. [facility] Comment on above: Chronic Kidney disea se, GFR = <60. Kidney failure, GFR = <15. The GFR estimate is not adjusted for extreme body surface area or acute process, nor has it been validated for women or ethnic groups other than and . GFR/1.73 sq M.predicted among blacks MDRD (S/P/Bld) [Vol rate/Area] 49 mL/min/{1.73_m2} ml/min/1.73s q.m [facility] GFR/1.73 sq M.predicted among non-blacks MDRD (S/P/Bld) [Vol rate/Area] 40 mL/min/{1.73_m2} ml/min/1.73s q.m [facility] Glucose post fast [Mass/Vol] 94 mg/dL [facility] Comment on above: NORMAL <100 mg/dL PREDIABETES 101-126 mg/dL DIABETES 126 mg/dL or higher Interpretation and review of laboratory results Abnormal [facility] Potassium [Moles/Vol] 4.2 mmol/L [facility] Sodium [Moles/Vol] 137 mmol/L [facility] Urea nitrogen [Mass/Vol] 16 mg/dL [facility] D-DIMER,QUANTITATIVEon 01-16 Fibrin D-dimer FEU (PPP) [Mass/Vol] 0.46 NINF [facility] Comment on above: If result is greater than the cutoff value of 0.50 g/ml then the potential for PE or DVT exists. Other conditions exist which may cause a falsely elevated level. Please correlate clinically, including radiological findings and other clinical parameters. [facility] HEPATIC FUNCTION PANELon Albumin [Mass/Vol] 3.8 g/dL [facility] ALP [Catalytic activity/Vol] 91 U/L [facility] ALT [Catalytic activity/Vol] 14 U/L [facility] AST [Catalytic activity/Vol] 20 U/L [facility] Bilirubin [Mass/Vol] 0.2 mg/dL [facility] Bilirubin.direct [Mass/Vol] 0.0 mg/dL [facility] Protein [Mass/Vol] 7.0 g/dL [facility] No Panel Informationon 01-16 Interpretation and review of laboratory results Abnormal [facility] Portable XR Chest Views APon 01-16-2023 IMPRESSION: Nonacute portable chest. RADIOLOGY EXAM: XR CHEST AP PORTABLE HISTORY: pain COMPARISON: CT chest from 08/12/2007. TECHNIQUE: Portable chest was done at 7:27 PM. FINDINGS: Trachea, mediastinum and heart size are unremarkable. No infiltrate or nodule or effusion or pneumothorax is noted. Diaphragm and bony elements are intact. RADIOLOGY Spenser Garcia, DO - 01/16/2023 EXAM: XR CHEST AP PORTABLE HISTORY: pain COMPARISON: CT chest from 08/12/2007. TECHNIQUE: Portable chest was done at 7:27 PM. FINDINGS: Trachea, mediastinum and heart size are unremarkable. No infiltrate or nodule or effusion or pneumothorax is noted. Diaphragm and bony elements are intact. IMPRESSION IMPRESSION: Nonacute portable chest. [facility] Radiology Study observation (narrative) [facility] Portable XR Chest Views APOr dered By: Spenser Garcia on 01-16-2023 [facility] Work Phone: TROPONIN I, HIGH SENSITIVITY on 01-16-2023 TROPONIN I, HIGH SENSITIVITY 3 pg/mL 0 - 12 pg/mL [facility] Comment on above: Indeterminant: >12 to 100 pg/mL female >20 to 100 pg/mL male Indicative of myocardial injury. Serial sampling is recommended, a change of greater than or equal to 20 pg/mL is indicative of acute coronary syndrome. [facility] URINALYSIS, MACROon 01-17-20 23 Bilirubin Ql (U) Negative NEGATIVE [facility] Clarity (U) CLEAR CLEAR [facility] Color (U) YELLOW YELLOW [facility] Glucose Test strip (U) [Mass/Vol] Negative NEGATIVE mg/dl [facility] Hemoglobin Ql (U) TRACE-INTACT Abnormal NEGATIVE [facility] Ketones (U) [Mass/Vol] Negative NEGAT CHRISTELLE mg/dl [facility] Leukocyte esterase Test strip Ql (U) TRACE Abnormal NEGATIVE [facility] Nitrite Ql (U) Negative NEGATIVE [facility] pH (U) 7.0 [pH] 5.0 - 7.0 [facility] Protein Ql (U) 100 mg/dl Abnormal NEGATIVE [facility] Specific gravity (U) [Rel density] 1.025 1.010 - 1.025 [facility] Urobilinogen (U) [Mass/Vol] 0.2 mg/dL [facility] URINE MICROSCOPICon 01-17-20 23 Bacteria LM.HPF (Urine sed) [#/Area] TRACE Abnormal NEGATIVE [facility] Casts LM.LPF (Urine sed) [#/Area] NONE NONE /LPF [facility] Crystals LM Nom (Urine sed) NONE NONE [facility] Epithelial cells LM Ql (Urine sed) 1 TO 5 /HPF [facility] Mucus Ql (Urine sed) Negative NEGATIVE [facility] RBC LM.HPF (Urine sed) [#/Area] 1 TO 5 NEGATIVE /HPF [facility] Urine sediment comments LM Cuco (Urine sed) CULTURE CRITERIA NOT MET, NO CULTURE PERFORMED. [facility] WBC LM.HPF (Urine sed) [#/Area] 1 TO 5 NEGATIVE /HPF [facility] US.doppler Extremity vessels - lefton 01-16-2023 IMPRESSION: No evidence of deep venous thrombosis. RADIOLOGY EXAM: US DUPLEX EXTREMITY DVT LEFT HISTORY: Pain and swelling. COMPARISON: 09/09/2022 PROCEDURE: High resolution duplex sonography of the left lower extremity was performed using B-mode, color-flow, and spectral analysis. FINDINGS: The visualized deep veins of the left lower extremity are compressible. Venous segments show normal waveforms. Color doppler patency preserved. No abnormal intraluminal echogenicity to suggest thrombus. Deep to area of patient's pain coil winder noted a 1.2 x 0.6 x 1.0 cm indeterminate hyperechogenic focus in the superficial subcutaneous tissues near the skin surface. This could be targeted for tissue sampling as clinically appropriate. Does not appear hypervascular. RADIOLOGY Jaja Araujo MD - 01/16/2023 EXAM: US DUPLEX EXTREMITY DVT LEFT HISTORY: Pain and swelling. COMPARISON: 09/09/2022 PROCEDURE: High resolution duplex sonography of the left lower extremity was performed using B-mode, color-flow, and spectral analysis. FINDINGS: The visualized deep veins of the left lower extremity are compressible. Venous segments show normal waveforms. Color doppler patency preserved. No abnormal intraluminal echogenicity to suggest thrombus. Deep to area of patient's pain coil winder noted a 1.2 x 0.6 x 1.0 cm indeterminate hyperechogenic focus in the superficial subcutaneous tissues near the skin surface. This could be targeted for tissue sampling as clinically appropriate. Does not appear hypervascular. IMPRESSION IMPRESSION: No evidence of deep venous thrombosis. [facility] Radiology Study observation (narrative) [facility] US.doppler Extremity vessels - leftOrdered By: Jaja Araujo on 01-16-2023 [facility] Work Phone: POCT URINALYSIS DIPSTICK AUT OMATED W/O SCOPon 11-29-2022 Amorphous sediment LM Ql (Urine sed) [facility] Appearance (U) clear [facility] Bacteria LM Ql (Urine sed) [facility] Bilirubin Ql (U) Negative [facility] Casts LM.LPF (Urine sed) [#/Area] [facility] Color (U) yellow [facility] Crystals LM Nom (Urine sed) [facility] Epithelial cells.squamous LM.HPF (Urine sed) [#/Area] [facility] Flow cytometry specialist review Cuco (Unsp spec) [Interp] [facility] Glucose Auto test strip (U) [Mass/Vol] Negative mg/dL [facility] Ketones [Mass/Vol] Negative mg/dL [facility] Leukocyte esterase Qn (U) [facility] Leukocyte esterase Test strip Ql (U) Negative [facility] Nitrite Ql (U) Negative [facility] pH (U) 5.0 [pH] 5 - 7 [facility] Protein Ql (U) 100 mg/dL [facility] RBC LM.HPF (Urine sed) [#/Area] [facility] RBC Ql (U) TRACE-INTACT [facility] Specific gravity (U) [Rel density] 1.025 1.001 - 1.035 [facility] Transitional cells LM Ql (Urine sed) [facility] Urobilinogen Qn (U) 0.2 [facility] WBC LM.HPF (Urine sed) [#/Area] [facility] URINE MICROSCOPICon 11-29-19 Bacteria LM.HPF (Urine sed) [#/Area] Negative NEGATIVE [facility] Casts LM.LPF (Urine sed) [#/Area] NONE NONE /LPF [facility] Crystals LM Nom (Urine sed) NONE NONE [facility] Epithelial cells LM Ql (Urine sed) 1 TO 5 /HPF [facility] Mucus Ql (Urine sed) Negative NEGATIVE [facility] RBC LM.HPF (Urine sed) [#/Area] Negative NEGATIVE /HPF [facility] Urine sediment comments LM Cuco (Urine sed) CULTURE CRITERIA NOT MET, NO CULTURE PERFORMED. [facility] WBC LM.HPF (Urine sed) [#/Area] Negative NEGATIVE /HPF [facility] US Kidneyon 11-03-2022 IMPRESSION: Mild to moderate hydronephrosis of the left kidney. No no evidence of nephrolithiasis. No hydronephrosis or sonographic abnormalities involving the right kidney. RADIOLOGY EXAM: US RENAL RETROPERITONEAL HISTORY: CKD III COMPARISON: None. TECHNIQUE: Ultrasound renal retroperitoneal FINDINGS: Portions of bilateral kidneys are limited in evaluation, likely secondary to overlying bowel gas. Findings are made within these confines: Size and Shape: Both kidneys have a normal size and shape with smooth contour. -Right kidney measures: 9.1 cm in length. -Left kidney measures: 9 cm in length. Echotexture: Within normal limits allowing for overlying bowel gas. Hydronephrosis: No hydronephrosis of the right kidney. Mild to moderate hydronephrosis of the left kidney. Nephrolithiasis: Not identified. Bladder: -Appearance: normal. -Wall thickening: normal. -Ureteral jets: Both ureteric jets are seen -Volumes: Pre and post micturition volumes were not obtained. RADIOLOGY Kory Fletcher MD - 11/03/2022 EXAM: US RENAL RETROPERITONEAL HISTORY: CKD III COMPARISON: None. TECHNIQUE: Ultrasound renal retroperitoneal FINDINGS: Portions of bilateral kidneys are limited in evaluation, likely secondary to overlying bowel gas. Findings are made within these confines: Size and Shape: Both kidneys have a normal size and shape with smooth contour. -Right kidney measures: 9.1 cm in length. -Left kidney measures: 9 cm in length. Echotexture: Within normal limits allowing for overlying bowel gas. Hydronephrosis: No hydronephrosis of the right kidney. Mild to moderate hydronephrosis of the left kidney. Nephrolithiasis: Not identified. Bladder: -Appearance: normal. -Wall thickening: normal. -Ureteral jets: Both ureteric jets are seen -Volumes: Pre and post micturition volumes were not obtained. IMPRESSION IMPRESSION: Mild to moderate hydronephrosis of the left kidney. No no evidence of nephrolithiasis. No hydronephrosis or sonographic abnormalities involving the right kidney. [facility] Radiology Study observation (narrative) [facility] US KidneyOrdered By: Kory Fletcher on 11-03-2022 [facility] Work Phone: COMPREHENSIVE METABOLIC PANE Daren 09-09-2022 Albumin [Mass/Vol] 3.6 G/dl 3.5 - 5.0 G/dl [facility] Albumin/Globulin [Mass ratio] 1.2 {ratio} Low [facility] ALP [Catalytic activity/Vol] 80 U/L [facility] ALT [Catalytic activity/Vol] 19 U/L [facility] AST [Catalytic activity/Vol] 21 U/L [facility] Bilirubin [Mass/Vol] 0.5 mg/dL [facility] Calcium [Mass/Vol] 9.1 mg/dL [facility] Chloride [Moles/Vol] 102 mmol/L [facility] CO2 [Moles/Vol] 22 mmol/L [facility] Creatinine [Mass/Vol] 1.58 mg/dL High [facility] GFR COMMENT Average GFR for 50-59 years old = 93. [facility] Comment on above: Chronic Kidney disea se, GFR = <60. Kidney failure, GFR = <15. The GFR estimate is not adjusted for extreme body surface area or acute process, nor has it been validated for women or ethnic groups other than and . GFR/1.73 sq M.predicted among blacks MDRD (S/P/Bld) [Vol rate/Area] 43 mL/min/{1.73_m2} ml/min/1.73s q.m [facility] GFR/1.73 sq M.predicted among non-blacks MDRD (S/P/Bld) [Vol rate/Area] 36 mL/min/{1.73_m2} ml/min/1.73s q.m [facility] Glucose post fast [Mass/Vol] 81 mg/dL [facility] Comment on above: NORMAL <100 mg/dL PREDIABETES 101-126 mg/dL DIABETES 126 mg/dL or higher Interpretation and review of laboratory results Abnormal [facility] Potassium [Moles/Vol] 4.5 mmol/L [facility] Protein [Mass/Vol] 6.7 g/dL [facility] Sodium [Moles/Vol] 136 mmol/L [facility] Urea nitrogen [Mass/Vol] 21 mg/dL High [facility] MAGNESIUMon 09-09-2022 Magnesium [Mass/Vol] 2.2 mg/dL [facility] No Panel Informationon 09-09 [facility].doppler Extremity vessels - lefton 09-09-2022 IMPRESSION: 1. No acute lower extremity deep venous thrombosis. 2. No superficial venous thrombosis. RADIOLOGY Carlos Eduardo Morel MD - 09/09/2022 CLINICAL DATA: Left calf cramping. PROCEDURE: Left lower extremity venous duplex ultrasound TECHNIQUE: Woodard-scale, color flow, and waveform spectral analysis was performed of the left lower extremity. FINDINGS: The left common femoral, profunda femoral, femoral, and popliteal veins were compressible. The saphenous vein was compressible. No venous thrombosis was seen. The veins fill with color Doppler. Augmentation was normal. IMPRESSION IMPRESSION: 1. No acute lower extremity deep venous thrombosis. 2. No superficial venous thrombosis. [facility] Radiology Study observation (narrative) [facility].doppler Extremity vessels - leftOrdered By: Carlos Eduardo Morel on 09-09-2022 [facility] Work Phone: 24 hour urine protein measur ement (mass/time)on 09-04-2022 Protein (24H U) [Mass/Time] 578.2 mg/24HR 0-151 [facility] Work Phone: 24 hour urine protein measur ement (mass/volume)on 09-04-2022 Protein (24H U) [Mass/Vol] 25.7 mg/dL 0.0-11.8 [facility] Work Phone: 24 hour urine specimen volum e measurementon 09-04-2022 Specimen volume (24H U) 2.25 L [facility] Work Phone: Basophil percentageon 2021 Basophil percentage 2.7 mg/dL 2.5-4.9 [facility] Work Phone: Chloride [Moles/Vol] 110 mmol/L 98-[address] [facility] [facility] Work Phone: Glucose [Mass/Vol] 106 mg/dL 74-106 [facility] Work Phone: Comment on above: Fasting Glucose resu lt from 100 to 125 mg/dL suggests IMPAIRED HOMEOSTASIS per A.D.A. criteria. Potassium [Moles/Vol] 3.8 mmol/L 3.5-5.1 [facility] Work Phone: Sodium [Moles/Vol] 142 mmol/L 136-145 [facility] Work Phone: Creatinine clearanceon 09-04 Creatinine renal clearance Unsp time (U+S/P) [Vol/Time] 60 ml/min 100-200 [facility] Work Phone: Laboratory - Chemistry and C hemistry - challengeon 09-04-2022 CO2 [Moles/Vol] 25.0 mmol/L 21.0-32.0 [facility] Work Phone: Urea nitrogen/Creatinine [Mass ratio] 9.3 mg/mg 10-20 [facility] Work Phone: Laboratory - Specimen inform ationon 09-04-2022 Collection duration (U) 24.0 HOURS 24.0-24.0 [facility] Work Phone: No Panel Informationon 09-04 Estimated GFR (MDRD) Amer 42 mL/min >60 [facility] Work Phone: Comment on above: GFR Calc Estimated GFR (MDRD) Non-Af Amer 35 mL/min >60 [facility] Work Phone: Comment on above: Non- GFR Calc Parathyroid Hormone (Intact) 111.2 pg/mL 18.4-80.1 [facility] Work Phone: Serum or plasma albumin anil urement (mass/volume)on 09-04-2022 Albumin [Mass/Vol] 3.0 g/dL 3.2-5.0 [facility] Work Phone: Serum or plasma calcium anil urement (mass/volume)on 09-04-2022 Calcium [Mass/Vol] 8.7 mg/dL 8.5-10.1 [facility] Work Phone: Serum or plasma urea nitroge n measurement (mass/volume)on 09-04-2022 Urea nitrogen [Mass/Vol] 15 mg/dL 7-18 [facility] Work Phone: Thin prep Papanicolaou smear with manual screeningon 09-04-2022 Creatinine (U) [Mass/Vol] 1.6 mg/dL 0.6-1.0 [facility] Work Phone: Urine creatinine measurement (mass/volume)on 09-04-2022 Creatinine (U) [Mass/Vol] 62.3 mg/dL NO RANGE EST. [facility] Work Phone: Basophil percentageon 2021 Basophil percentage 2.8 mg/dL 2.5-4.9 [facility] Work Phone: Chloride [Moles/Vol] 107 mmol/L 98-107 [facility] Work Phone: Glucose [Mass/Vol] 87 mg/dL 74-106 [facility] Work Phone: Potassium [Moles/Vol] 4.6 mmol/L 3.5-5.1 [facility] Work Phone: Sodium [Moles/Vol] 141 mmol/L 136-145 [facility] Work Phone: Laboratory - Chemistry and C hemistry - challengeon 07-18-2022 CO2 [Moles/Vol] 30.0 mmol/L 21.0-32.0 [facility] Work Phone: Urea nitrogen/Creatinine [Mass ratio] 8.9 mg/mg 10-20 [facility] Work Phone: No Panel Informationon 07-18 Estimated GFR (MDRD) Amer 47 mL/min >60 [facility] Work Phone: Comment on above: GFR Calc Estimated GFR (MDRD) Non-Af Amer 39 mL/min >60 [facility] Work Phone: Comment on above: Non- GFR Calc Serum or plasma albumin anil urement (mass/volume)on 07-18-2022 Albumin [Mass/Vol] 3.5 g/dL 3.2-5.0 [facility] Work Phone: Serum or plasma calcium anil urement (mass/volume)on 07-18-2022 Calcium [Mass/Vol] 9.6 mg/dL 8.5-10.1 [facility] Work Phone: Serum or plasma creatinine m easurement (mass/volume)on 07-18-2022 Creatinine [Mass/Vol] 1.46 mg/dL 0.55-1.02 [facility] Work Phone: Comment on above: The validity of the calculated GFR & GFRAA in patients over 70 years has not been determined. Clinical correlation is essential. Serum or plasma urea nitroge n measurement (mass/volume)on 07-18-2022 Urea nitrogen [Mass/Vol] 13 mg/dL 7-18 [facility] Work Phone: Provider Note - ED v3on 04-05 Provider Note - ED v3 Provider Note: Chart Review: HISTORY OF PRESENTING ILLNESS AZEB is a 56 year old Female and was seen by me at 20-Apr-2022 12:17 for a chief complaint of lacerations. The historian is the patient. Triage Information: Most recent Vital Sign Value Date Presenting Symptoms: laceration and swelling. Location in the lower leg. Quality is burning and stinging. Context is (struck by a sharp end of a snow shovel) The symptoms started today. Timing is sudden onset and constant. Modifying factors: Worse with touch. Pertinent History: (right ankle surgery). PAST MEDICAL HISTORY ALLERGIES/INTOLERANC ES: Allergy Allergen: albuterol Type: Drug Reaction: Arrhythmia Allergen: codeine Type: Drug Reaction: Other Allergen: penicillin Type: Drug Reaction: Rash Allergen: morphine Type: Drug Reaction: Hives/Urticaria HEALTH HISTORY: No documented data. OUTPATIENT MEDICATIONS: Home Medications Review Status for Reconciliation: Complete Med Status: No Current Medications SIGNIFICANT EVENTS: No documented data. REVIEW OF SYSTEMS CONSTITUTIONAL: Negative for: chills, fever and malaise ENMTNose: Negative for: congestion and discharge MUSCULOSKELETAL: Negative for: pain INTEGUMENTARY: POSITIVE for: lesions (right proximal tibia laceration); Negative for: rash PHYSICAL EXAM CONSTITUTIONAL: Well appearing, well nourished, awake, alert, oriented to person, place, time/situation and in no apparent distress. CARDIOVASCULAR: normal peripheral pulses. RESPIRATORY: Breath sounds clear and equal bilaterally. MUSCULOSKELETAL: Musculoskeletal Exam: (right ant. proximal tibia noted laceration) Weight Bearing: able Extremity Exam: Right Lower Location: leg Right Lower Findings: TENDERNESS (laceration proximalAnterior tibia Patient also has a slight superficial abrasion to the left distal thigh) Vascular: pulses full and equal bilaterally NEUROLOGICAL: Alert and oriented, no focal deficits, no motor or sensory deficits. SKIN: Skin Color: normal for race Skin Temperature: warm Capillary Refill: less than 2 seconds Skin Turgor: resilient/elastic Signs of Infection: no drainage, no inflammation, no redness and no extra warmth at the site Wound Type: LACERATION(S) Wound Description: clean and FLAP LIKE Wound Exposed: fat Wound #1: Location: right proximal, anterior tibia wound Length: 2 cm Width: 1 cm Depth: 1.5 cm CRITICAL CARE VITAL SIGNS: T PRBP SpO2O2(LPM) %FiO2 Method 20-Apr-2022 12:15:[id number] /92 98RA MDM MDM/ED COURSE: 1) RLE tibia laceration: Wound care provided in office with subcuticular stitches, Dermabond and Steri-Strips, discussed wound care at home, encourage patient return if wound needs to be reevaluated, reassured in the office of findings today, patient had a Tdap provided by Jeremy Turcios MA in the left deltoid after shot time no reaction.Differentia l Diagnosis: abrasions, abscess, contusion, laceration and puncture Discussed Findings with: patient Data Reviewed: vital signs Conducted Detailed Discussion with Patient and/or Guardian Regarding: need for outpatient follow-up PROGRESS NOTE LACERATION REPAIR Procedure performed by: pr Land Economist(s): none Findings: grossly normal anatomy Specimen: no Estimated Blood Loss (mL): none Post-Procedure Diagnosis: right proximal ant. tibia laceration The patient presents with a 2.00 cm long full thickness laceration of the right, lower, anterior and leg. The area was draped and prepped per protocol. Local anesthesia was achieved with 1% lidocaine and with epinephrine (6mL). The wound was cleansed, irrigated and copiously irrigated, the area was explored in a bloodless field, NS 0.9% under pressure was used to irrigate the wound. There were no foreign bodies seen. There was no injury to the tendon(s). 4 4-0 (deep subq = 3 interrupted sutures then x1 running subcuticular suture applied) vicryl sutures in the deep subcutaneous tissue. 3 wound closure strips.liquiband. Complications: There were no complications associated with the procedure DISPOSITION Diagnosis/Annotation : ED Dx Name:Laceration of right lower leg, initial encounter Code:S81.811A Disposition: discharged CONSULT CRITICAL CARE TIME Is this a critically ill patient: no Electronic Signatures: Jose Cordero (PAC) (Signed 20-Apr-2022 15:40) Authored: HPI, PMH, ROS, PE, Results/Vital Signs, MDM/ED Course, Procedure, Clinical Impression, Attestation, Chart Review, Scores Last Updated: 20-Apr-2022 15:40 by Jose Cordero (PAC) Normal [facility] percentageon 2021 Chloride [Moles/Vol] 106 mmol/L 98-107 [facility] Work Phone: Cholesterol [Mass/Vol] 259 mg/dL <200 [facility] Work Phone: Comment on above: <200 mg/dL Desirable 200-240 mg/dL Borderline >240 mg/dL High Risk Glucose [Mass/Vol] 79 mg/dL 74-106 [facility] Work Phone: Potassium [Moles/Vol] 4.5 mmol/L 3.5-5.1 [facility] Work Phone: Sodium [Moles/Vol] 139 mmol/L 136-145 [facility] Work Phone: Triglyceride [Mass/Vol] 67 mg/dL <199 [facility] Work Phone: Comment on above: The drugs N-Acetylcy steine and Metamizole may falsely depress this assay.Serum Triglycerides Reference Interval Normal <150 mg/dL Borderline high 150 - 199 mg/dL High 200 - 499 mg/dL Very High > or = 500 mg/dL Laboratory - Chemistry and C hemistry - challengeon 03-21-2022 CO2 [Moles/Vol] 28.0 mmol/L 21.0-32.0 [facility] Work Phone: Urea nitrogen/Creatinine [Mass ratio] 15.6 mg/mg 10-20 [facility] Work Phone: No Panel Informationon 03-21 Estimated GFR (MDRD) Amer 47 mL/min >60 [facility] Work Phone: Comment on above: GFR Calc Estimated GFR (MDRD) Non-Af Amer 39 mL/min >60 [facility] Work Phone: Comment on above: Non- GFR Calc Serum or plasma calcium anil urement (mass/volume)on 03-21-2022 Calcium [Mass/Vol] 9.8 mg/dL 8.5-10.1 [facility] Work Phone: Serum or plasma cholesterol in HDL measurement (mass/volume)on 03-21-2022 Cholesterol in HDL [Mass/Vol] 67 mg/dL >40 [facility] Work Phone: Comment on above: The drugs N-Acetylcy steine and Metamizole may falsely depress this assay. Reference Range HDL <40 mg/dL Low HDL Cholesterol HDL >or= 60 mg/dL High HDL Cholesterol Serum or plasma cholesterol in VLDL measurement (mass/volume)on 03-21-2022 Cholesterol in VLDL [Mass/Vol] 13 mg/dL 5-40 [facility] Work Phone: Serum or plasma creatinine m easurement (mass/volume)on 03-21-2022 Creatinine [Mass/Vol] 1.47 mg/dL 0.55-1.02 [facility] Work Phone: Comment on above: The validity of the calculated GFR & GFRAA in patients over 70 years has not been determined. Clinical correlation is essential. Serum or plasma low density lipoprotein (LDL) cholesterol measurement (mass/volume)on 03-21-2022 Cholesterol in LDL [Mass/Vol] 179 mg/dL 0-130 [facility] Work Phone: Serum or plasma urea nitroge n measurement (mass/volume)on 03-21-2022 Urea nitrogen [Mass/Vol] 23 mg/dL 7-18 [facility] Work Phone: Thin prep Papanicolaou smear with manual screeningon 03-21-2022 Thin prep Papanicolaou smear with manual screening 5 5-15 [facility] Work Phone: CT ABDOMEN PELVIS WITH IV CO NTRAST ONLYon 01-31-2022 CT ABDOMEN PELVIS WITH IV CONTRAST ONLY EXAMINATION: CT ABDOMEN PELVIS WITH IV CONTRAST ONLY HISTORY: ORDERING SYSTEM PROVIDED HISTORY: LLQ pain, likely divertic. Make sure no perf., TECHNOLOGIST PROVIDED HISTORY: Illness/Other Reason for exam: LLQ pain, likely divertic. Make sure no perf Encounter Type: Initial Additional signs and symptoms: n ORDERING SYSTEM PROVIDED DIAGNOSIS CODES: COMPARISON: No prior CT abdomen studies. TECHNIQUE: CT examination of the abdomen and pelvis following the administration of intravenous contrast. Coronal and sagittal reformations were performed. Dose reduction techniques were achieved by using automated exposure control and/or adjustment of mA and/or kV according to patient size and/or use of iterative reconstruction technique. CONTRAST: IOPAMIDOL 76 % INTRAVENOUS SOLUTION - 75 mL, FINDINGS: CT ABDOMEN: The lung bases are clear. Liver shows a 1.7 x 1.4 cm cyst in segment V (image 28). No other focal liver lesions. The spleen, pancreas and adrenal glands are within normal limits. Gallbladder appears normal with no calcified stones. There is symmetric enhancement of the kidneys and no hydronephrosis. There is an upper pole left renal cyst measuring 1.8 x 2.4 cm. The stomach is nondistended. Small bowel loops are unremarkable with no dilatation or appreciable loop thickening. The appendix is normal. No intraabdominal free air or ascites. The abdominal aorta shows mild atherosclerotic plaquing and no aneurysmal dilatation. CT PELVIS: There is moderate diverticulosis of the descending and sigmoid colon. At the proximal sigmoid colon, there is moderate inflammatory stranding where there is likely an inflamed diverticula anteriorly (image 78). Overall findings compatible with acute diverticulitis. No extraluminal collections of gas to suggest perforation. No discrete abscess. There is a trace volume of free fluid in the pelvis. Urinary bladder is nondistended with no intraluminal gas collections. Uterus is surgically absent. No acute osseous abnormality. IMPRESSION: 1. Moderately severe diverticulitis of the sigmoid colon. Small volume of free fluid in the pelvis. No signs of perforation, abscess or bowel obstruction. 2. Small liver and left renal cysts. 3. Hysterectomy. JAR/lab Workstation ID: [id number] Dictated by: NICHOLE MATTHEW on FriJan 31, 2022 1:55:23 PM EDT Transcribed by: KIARRA ALLISON on FriJan 31, 2022 2:04:58 PM EDT Finalized by: NICHOLE MATTHEW on FriJan 31, 2022 4:27:05 PM EDT Normal [facility] Comment on above: Order Comment: Injur y/Trauma or Illness?:Illness/Other How long have you had these symptoms (acute/chronic)?:Acute Reason for exam?:LLQ pain, likely divertic. Make sure no perf Type of Exam?:Initial Additional signs and symptoms?:n Clinical Summary: Deuce tanesha 12-12-2021 [facility] OP Visit Invalid Interpretation Code [facility] Work Phone: Office Visit: New - 1st visi t with practice, Rm: 2on 12-12-2021 NEGATED: Highlighted rowTobacco smoking status Tobacco smoking status Invalid Interpretation Code [facility] Work Phone: XR ANKLE RIGHT 3+ VIEWS (STA NDARD)on 10-17-2021 XR ANKLE RIGHT 3+ VIEWS (STANDARD) EXAMINATION: XR ANKLE RIGHT 3+ VIEWS (STANDARD) 10/17/2021 3:27 PM. HISTORY: ORDERING SYSTEM PROVIDED HISTORY: Pain. TECHNOLOGIST PROVIDED HISTORY: Injury/Trauma Reason for exam: POST OP ORIF RT STAS. FX SX:08/01/21 Cancer History: Surgery, RadiationHistory: Encounter Type: Subsequent/Follow-up Mechanism of injury: FALL ORDERING SYSTEM PROVIDED DIAGNOSIS CODES: R52 Pain COMPARISON: Right ankle x-rays from 09/11/2021. FINDINGS: Three views of the right ankle were obtained. Hardware is similar when compared to the prior study with prior open reduction internal fixation of the distal fibula, posterior aspect of the distal tibia as well as the medial malleolus. There has been progression of healing of the medial malleolar fracture with progression of callus formation periosteal reaction medially and the fracture line less well visualized. The distal fibula is largely obscured by the hardware. The posterior aspect of the distal tibia is also largely obscured by the hardware. There is no OCD lesion involving the talar dome. There is likely disuse osteopenia. There is mild spurring at the Achilles insertion. There is moderate diffuse soft tissue swelling. IMPRESSION: 1. Stable appearance of hardware status post open reduction internal fixation of the distal fibula, posterior aspect of the distal tibia and medial malleolus with progression of healing of the medial malleolar fracture. 2. No new fracture. There is moderate diffuse soft tissue swelling. [employer]iTerisL/alt Workstation ID: [id number] Dictated by: SHAMA MURPHY on FriOct 17, 2021 8:00:34 PM EST Transcribed by: EDWARD DODD on FriOct 17, 2021 8:08:38 PM EST Finalized by: SHAMA MURPHY on FriOct 17, 2021 8:42:31 PM EST Normal [facility] Comment on above: Order Comment: Injur y/Trauma or Illness?:Injury/Trauma How long have you had these symptoms (acute/chronic)?:Acute Reason for exam?:POST OP ORIF RT STAS. FX SX:08/01/21 History of cancer?: Surgeries, chemotherapy, or radiation?: Type of Exam?:Subsequent/Follow-up Mechanism of injury?:FALL Covid 19 Resultson 1 SARS-CoV-2 (COVID-19) RNA YUNG+probe Ql (Unsp spec) POSITIVE COVID-19 Test Coronaviruses are common world-wide and are the cause of many common colds. SARS-COV2 is a new coronavirus that began circulating worldwide in 2019 so we are calling it COVID-19. It has been estimated that four out of five patients with COVID-19 will recover at home without the need for medical attention. Symptoms of COVID-19 may include cough, fever, shortness of breath, loss of taste or smell and other flu-like symptoms including chills, sore muscles, sore throat, and headache. Severe illness is more common in older people and people with other health problems such as high blood pressure, obesity, and immune system problems. If the test is positive, you have COVID-19. You will be contacted by the ordering physicians office and instructed to remain on home isolation, in accordance with CDC guidelines. You may also be contacted by the [facility] to see if any of your close contacts may have been exposed to the virus and need to quarantine. If the test is negative, you likely do not have COVID-19 at this time, but you still may have a different illness that can spread to other people (like Influenza, or the Flu) and could still be at risk for getting COVID-19. We recommend that you stay away from other people to limit the spread of illness until your symptoms are improving and you are fever-free for 24 hours without the use of fever lowering medications such as acetaminophen or ibuprofen. No test is 100% accurate so if you are still concerned you may have COVID-19, talk to your doctor about the need to continue to stay away from others. Medicines Unless your provider told you not to use the following: Acetaminophen (Tylenol and others) is generally safe. Anti-inflammatory medications, such as Ibuprofen (Advil or Motrin) or Naproxen (Aleve) can also be used. Wcdz-vxm-bexdrti cough and cold medicines can be used according to the instructions on the package. Some rcks-xxn-hxdqwnf medicines also contain acetaminophen. Make sure you are not taking more than your recommended dose. For those not hospitalized, there is no specific treatment available for this illness. Antibiotics do not treat Coronaviruses. Follow-Up Follow up with your doctor by scheduling a virtual visit or consider follow-up at one of our urgent care fever clinics. If you are having difficulty breathing, or are very weak and having difficulty standing, this is a medical emergency. Call 911 or have someone take you to the nearest emergency room immediately. If possible, wear a facemask. Additional guidance from the CDC for patients who tested POSITIVE for COVID-19 How to isolate: Isolate yourself in a specific room at home and limit your contact with others. Use a separate bathroom from other members of the household, when possible. Leave home only to get essential medical care. Do not go to work, school or public areas. Avoid using public transportation, ride-sharing, or taxis. Restrict contact with pets and other animals. If you must care for your pet or be around animals while you are sick, wash your hands before and after your interaction and wear a facemask. Make sure that shared spaces in the home have good airflow, such as by an air conditioner or an opened window, weather permitting. Personal Hygiene Procedures: Wear a face mask when in the same room as other people or pets. If a face mask interferes with your breathing, others should wear a mask when sharing space with you. Frequent hand-washing: wash your hands with soap and water for at least 20 seconds. If soap and water are not available, use alcohol-based hand stone splitter. Avoid touching your eyes, nose, and mouth with unwashed hands. Household Hygiene Procedures: Avoid sharing personal household items such as dishes, glassware, cups, eating utensils, towels or bedding with other people or pets in your home. After use, these items should be washed with soap and hot water. Disinfect all high-touch surfaces every day with antibacterial cleaning solutions such as Lysol wipes, bleach, cleansers, etc. High-touch surfaces include tabletops, doorknobs, bathroom fixtures, toilets, phones, keyboards, tablets and bedside tables. Immediately clean any surfaces that may have blood, poop or body fluids on them, using antibacterial cleaning solutions such as Lysol wipes, bleach, cleansers, etc. If clothing or bedding come into contact with blood, poop or body fluids, they should be washed immediately. Follow the directions on the laundry detergent and clothing labels but hot water is recommended when possible. Stopping home isolation precautions: If possible, consult your doctor before stopping home isolation precautions. According to the CDC, you can discontinue home isolation precautions when you have met both of these criteria: Your fever and respiratory symptoms have been gone for 24 bess (more content not included)... Normal [facility] INFLUENZA A/B, COVID 2019 PC R,SYMPTOMATICon 10-02-2021 INFLUENZA A, PCR Not detected Normal Not Detected [facility], [place], operated by [facility] Comment on above: Result Comment: Resp iratory virus testing is performed routinely by PCR for Influenza A/B and RSV. If Influenza and RSV PCR are negative, testing for parainfluenza 1,2,3 viruses and adenovirus is routinely performed for oncology inpatients and intensive care unit patients at [facility] and is available on request on other patients by calling Laboratory Client Services at [phone]. Not Detected results do not preclude Influenza A/B or RSV infections since the adequacy of sample collection or low viral burden may impact the clinical sensitivity of this test method. Performed By: #### C OINP #### [facility] [address] [place] [address] INFLUENZA B, PCR Not detected Normal Not Detected [facility], [place], operated [facility] Comment on above: Result Comment: Resp iratory virus testing is performed routinely by PCR for Influenza A/B and RSV. If Influenza and RSV PCR are negative, testing for parainfluenza 1,2,3 viruses and adenovirus is routinely performed for oncology inpatients and intensive care unit patients at [facility] and is available on request on other patients by calling Laboratory Client Services at [phone] Not Detected results do not preclude Influenza A/B or RSV infections since the adequacy of sample collection or low viral burden may impact the clinical sensitivity of this test method. . The TaqManTM SARS-CoV-2, Flu A, Flu B Multiplex Assay is a multiplex, real-time RT-PCR assay for the detection of RNA from the SARS-CoV-2, Influenza A, and Influenza B viruses. A negative result does not preclude the possibility of SARS-CoV-2, Influenza A, or Influenza B infections, and should not be used as the sole basis for patient management decision as a negative result may be caused by very low levels of infection, collection errors, or testing errors. . This test was developed and its performance characteristics were determined by the Microbiology Laboratory, Department of Pathology, [facility], [place], [place]. It has not been cleared or approved by the US Food and Drug Administration; however, FDA clearance or approval is not currently required for clinical use. This test should not be regarded as investigational or for research purposes. Performed By: #### C OINP #### [facility] [address] [place] [address] SARS-CoV-2 (COVID-19) RNA YUNG+probe Ql (Unsp spec) Detected Abnormal Not Detected [facility] Comment on above: Result Comment: . This assay is designed to detect the N, ORF1ab and/or S genes of SARS-CoV-2 via nucleic acid amplification. A Negative (NOT DETECTED) result does not preclude 2019-nCoV infection since the adequacy of sample collection and/or low viral burden may result in presence of viral nucleic acids below the clinical sensitivity of this test method. Negative (NOT DETECTED) result should not be used as the sole basis for treatment or other patient management decisions. Rather negative results should be combined with clinical observations, patient history, and epidemiological information to make patient management decisions. Fact sheet for providers: https://www.fda.gov/media/178973/download Fact sheet for patients: https://www.fda.gov/media/139856/download This test has received FDA Emergency Use Authorization (EUA) and has been verified by [facility] ([facility]). This test is only authorized for the duration of time that circumstances exist to justify the authorization of the emergency use of in vitro diagnostic tests for the detection of SARS-CoV-2 virus and/or diagnosis of COVID-19 infection under section 564(b)(1) of the Act, 21 U.S.C. 360bbb-3(b)(1), unless the authorization is terminated or revoked sooner. [facility] is certified under CLIA-88 as qualified to perform high complexity testing. Testing is performed in the [facility] laboratories located at [address] [place] [address]. Performed By: #### C OINP #### [address] [place] [address] INFLUENZA A/B, COVID 2019 PC R,SYMPTOMATICon 10-01-2021 DATE OF SYMPTOM ONSET [[id number]]? [id number] Normal [facility] Comment on above: Performed By: #### C OINP #### [address] [place] [address] Lab Specimen Source Nasal, Nasopharyngeal Normal [facility] Comment on above: Performed By: #### C OINP #### [address] [place] [address] Provider Note - ED v3on 12-2 Provider Note - ED v3 Provider Note: Chart Review: HISTORY OF PRESENTING ILLNESS AZEB is a 55 year old Female and was seen by me at 01-Oct-2021 15:02 for a chief complaint of fever. The historian is the patient. Triage Information: Most recent Vital Sign Value Date Presenting Symptoms: chills, congestion, cough, earache, headache, malaise, rhinorrhea and sore throat.Quality is aching and dull. Context is Unknown and sick contacts. Duration: 6 day(s). Timing is gradual onset. Highest temperature was 101.0 . Modifying factors: Better with acetaminophen and ibuprofen.Pertinent history is none related to reason for visit. PAST MEDICAL HISTORY ALLERGIES/INTOLERANC ES: Allergy Allergen: albuterol Type: Drug Reaction: Arrhythmia Allergen: codeine Type: Drug Reaction: Other Allergen: penicillin Type: Drug Reaction: Rash Allergen: morphine Type: Drug Reaction: Hives/Urticaria HEALTH HISTORY: No documented data. OUTPATIENT MEDICATIONS: Home Medications Review Status for Reconciliation: Complete Med Status: Patient Currently Takes Medications Drug Name: brompheniramine/pseu doephedrine/dextrome thorphan [id number]/5 mL oral syrup Instructions: 5 milliliter(s) orally 4 times a day Drug Name: Vitamin D3 25 mcg (1000 intl units) oral capsule Instructions: 1 cap(s) orally once a day (at bedtime) Drug Name: ascorbic acid 500 mg oral capsule Instructions: 1 cap(s) orally 2 times a day SIGNIFICANT EVENTS: No documented data. REVIEW OF SYSTEMS CONSTITUTIONAL: POSITIVE for: chills, fever and malaise ENMTNose: POSITIVE for: congestion Throat/Neck: POSITIVE for: throat pain RESPIRATORY: POSITIVE for: cough GASTROINTESTINAL: Negative for: diarrhea and vomiting; MUSCULOSKELETAL: POSITIVE for: back pain, joint pain and pain NEUROLOGICAL: POSITIVE for: headache; PHYSICAL EXAM CONSTITUTIONAL: Well appearing, well nourished, awake, alert, oriented to person, place, time/situation and in no apparent distress. Well dressed -French female room #2 patient engaging cooperative, she is quite warm, she is currently laying supine upon entering the room with a sheet over her complaining of being cold and chilly. HENMT: Head Examination: atraumatic Face: no signs of abnormality Ear: - BILATERAL TM's CLEAR Nose: INFLAMMATION and RHINORRHEA Mouth: normal mouth inspection Teeth: no visible abnormalities Throat: normal pharynx EYES: Clear bilaterally, pupils equal, round and reactive to light. CARDIOVASCULAR: Normal rate, regular rhythm. Heart sounds S1, S2. No murmurs, rubs or gallops. RESPIRATORY: Breath sounds clear and equal bilaterally. MUSCULOSKELETAL: Spine appears normal, range of motion is not limited, no muscle or joint tenderness. Normal range of motion of neck. SKIN: Skin normal color for race, warm, dry and intact. No evidence of trauma. HEME/LYMPH: no cervical, supraclavicular, pre/post auricular, occipital lymphadenopathy. CRITICAL CARE VITAL SIGNS: Temperature C: 37.3 degrees C. Temperature F: 99.3 degrees F. Temperature site: tympanic. Blood Pressure: 103 mm/Hg / 70 mm/Hg Blood Pressure Position: sitting. Blood Pressure Source: brachial left. Heart Rate: 117 beats per minute Respiratory Rate: Pulse Oximetry: 97 %. Patient on: room air. MDM MDM/ED COURSE: I reviewed the COVID-19 algorithm, reviewed the algorithm & symptoms with the patient, and counseled the patient on COVID-19 current recommendations. It was determined the patient's symptoms are consistent with need for testing for COVID-19, using proper PPE, I was able to obtain a nasal swab without incident. Patient was given a note for work, pt is encouraged to self quarantine, pt is encouraged to take the prescription medications as designed, & the patient was discharged. I encourage pt seek higher level of care should symptoms persist/change or exacerbate. At this time his symptoms are mild to moderate, & the patient does meet criteria to be treated at home while awaiting testing results. Patient was given Tylenol 250 and ibuprofen 125 mg x 2 orally in the office, patient was then reassured & we reviewed the plan of tx at home with antipyretics antiinflammatories. DISPOSITION Diagnosis/Annotation : ED Dx Name:Acute viral syndrome Code:B34.9 Name:Encounter for screening for COVID-19 Code:Z11.52 Disposition: discharged CONSULT CRITICAL CARE TIME Is this a critically ill patient: no Electronic Signatures: Jose Cordero (PAC) (Signed 02-Oct-2021 17:38) Authored: HPI, PMH, ROS, PE, Results/Vital Signs, MDM/ED Course, Clinical Impression, Attestation, Chart Review, Scores Last Updated: 02-Oct-2021 17:38 by Jose Cordero (PAC) [facility] XR ANKLE RIGHT 3+ VIEWS (STA NDARD)on 09-11-2021 XR ANKLE RIGHT 3+ VIEWS (STANDARD) EXAMINATION: XR ANKLE RIGHT 3+ VIEWS (STANDARD) 09/11/2021 11:17 am HISTORY: ORDERING SYSTEM PROVIDED HISTORY: Ankle fracture, bimalleolar, closed, right, initial encounter, TECHNOLOGIST PROVIDED HISTORY: Injury/Trauma Reason for exam: POST OP ORIF RT STAS. FX SX:08/01/21 Cancer History: Surgery, RadiationHistory: Encounter Type: Subsequent/Follow-up Mechanism of injury: FALL ORDERING SYSTEM PROVIDED DIAGNOSIS CODES: S82.841A Ankle fracture, bimalleolar, closed, right, initial encounter COMPARISON: Ankle radiographs from 08/14/2021 PROCEDURE: Standing AP, lateral, oblique radiographs of the right ankle. FINDINGS: 2 surgical screws within the medial malleolus. Lateral plate screw fixation of the distal fibula. Posterior plate screw fixation of the tibia. No metallic fracture. No disc evidence of loosening. Soft tissue swelling about the ankle. Small amount of periosteal reaction about the medial tibia metaphysis. Achilles calcaneal enthesophyte. IMPRESSION: Healing medial malleolus fracture with development of periosteal reaction and indistinctness of the fracture lucency. Postsurgical changes of open reduction internal fixation without evidence of complication. Soft tissue swelling about the ankle. Workstation ID: [id number] Dictated by: KATIE VELA on FriSep 12, 2021 12:06:50 PM EST Transcribed by: KATIE VELA on FriSep 12, 2021 12:06:50 PM EST Finalized by: KATIE VELA on FriSep 12, 2021 12:06:50 PM EST Normal [facility] Comment on above: Order Comment: WEIGH TBEARING VS SIMULATED WB Injury/Trauma or Illness?:Injury/Trauma How long have you had these symptoms (acute/chronic)?:Acute Reason for exam?:POST OP ORIF RT STAS. FX SX:08/01/21 History of cancer?: Surgeries, chemotherapy, or radiation?: Type of Exam?:Subsequent/Follow-up Mechanism of injury?:FALL XR ANKLE RIGHT 3+ VIEWS (STA NDARD)on 08-14-2021 XR ANKLE RIGHT 3+ VIEWS (STANDARD) EXAMINATION: XR ANKLE RIGHT 3+ VIEWS (STANDARD) HISTORY: Pain Injury/Trauma or Illness?:Injury/Trau ma How long have you had these symptoms (acute/chronic)?:Acu te Reason for exam?:POST OP ORIF RT STAS. FX SX:08/01/21 History of cancer?: Surgeries, chemotherapy, or radiation?: R52 PainInjury/Trauma or Illness?:Injury/Trau ma How long have you had these symptoms (acute/chronic)?:Acu te COMPARISON: Ankle radiographs 08/01/2021. IMPRESSION: FINDINGS/ Status post ORIF of the medial malleolus, distal fibula and posterior malleolus. Hardware in expected alignment. Hardware appears intact. There is healing of the distal fibular and posterior malleolar fractures. However, the fracture line of the medial malleolus remains visible. Soft tissue swelling remains. No osteochondral lesion. Small retrocalcaneal enthesophyte at the Achilles tendon insertion noted. Normal tibiotalar alignment. PD/mjr Workstation ID: [id number] Dictated by: YAHIR MARTINS on FriAug 14, 2021 4:56:06 PM EST Transcribed by: ALVA COOLEY on FriAug 14, 2021 5:09:50 PM EST Finalized by: YAHIR MARTINS on FriAug 15, 2021 6:47:16 AM EST Normal [facility] Comment on above: Order Comment: Injur y/Trauma or Illness?:Injury/Trauma How long have you had these symptoms (acute/chronic)?:Acute Reason for exam?:POST OP ORIF RT STAS. FX SX:08/01/21 History of cancer?: Surgeries, chemotherapy, or radiation?: Type of Exam?:Initial Mechanism of injury?:fall Basic metabolic 2000 panelon 08-03-2021 Anion gap [Moles/Vol] 10 mmol/L 10 - 2 0 mmol/L [facility] Calcium [Mass/Vol] 8.7 mg/dL 8.4 - 10. 2 mg/dL [facility] Chloride [Moles/Vol] 114 mmol/L High 98 - 10 8 mmol/L [facility] Creatinine [Mass/Vol] 1.49 mg/dL High 0.40 - 1.10 [facility] GFR/1.73 sq M.predicted CKD-EPI (S/P/Bld) [Vol rate/Area] 45 Low >=60 mL/min/1.73 m2 [facility] Glucose [Mass/Vol] 120 mg/dL High 65 - 99 mg/dL [facility] HCO3 [Moles/Vol] 21 mmol/L 21 - 32 mmol/L [facility] Interpretation and review of laboratory results Abnormal [facility] Potassium [Moles/Vol] 4.2 mmol/L 3.5 - 5.1 mmol/L [facility] Sodium [Moles/Vol] 141 mmol/L 135 - 145 mmol/L [facility] Urea nitrogen [Mass/Vol] 16 mg/dL 8 - 25 mg/dL [facility] Urea nitrogen/Creatinine [Mass ratio] 10.7 mg/mg [facility] The eGFR should be used for monitoring renal function only and not for medication dosing. [facility] CBC WITH AUTO DIFFERENTIALon 08-03-2021 Basophils (Bld) [#/Vol] 0.05 10*3/uL [facility] Basophils/100 WBC (Bld) 0.6 % [facility] Eosinophils (Bld) [#/Vol] 0.19 10*3/uL [facility] Eosinophils/100 WBC (Bld) 2.2 % [facility] Erythrocyte distribution width (RBC) [Entitic vol] 13.8 % 11.6 - 14.8 % [facility] Hematocrit (Bld) [Volume fraction] 38.0 % 36.0 - 46.0 % [facility] Hemoglobin (Bld) [Mass/Vol] 12.1 g/dL 12.0 - 16.0 g/dL [facility] Immature granulocytes (Bld) [#/Vol] 0.03 10*3/uL [facility] Immature granulocytes/100 WBC (Bld) 0.30 % [facility] Comment on above: The IG parameter is the percentage of metamyelocytes, myelocytes and promyelocytes. An immature granulocyte count (IG) of 1% or more suggests the possibility of infection, an IG count of 3% is very likely related to an infection. Interpretation and review of laboratory results Abnormal [facility] Lymphocytes (Bld) [#/Vol] 1.90 10*3/uL [facility] Lymphocytes/100 WBC (Bld) 21.7 % [facility] MCH (RBC) [Entitic mass] 31.4 pg 26.0 - 34.0 pg [facility] MCHC (RBC) [Mass/Vol] 31.8 g/dL 31.0 - 37.0 g/dL [facility] MCV (RBC) [Entitic vol] 98.7 fL 80.0 - 100.0 fL [facility] Monocytes (Bld) [#/Vol] 0.52 10*3/uL [facility] Monocytes/100 WBC (Bld) 5.9 % [facility] Neutrophils (Bld) [#/Vol] 6.08 10*3/uL [facility] Neutrophils/100 WBC (Bld) 69.3 % [facility] Nucleated RBC (Bld) [#/Vol] 0.00 10*3/uL [facility] Nucleated RBC/100 WBC (Bld) [Ratio] 0.0 % [facility] Platelet mean volume (Bld) [Entitic vol] 9.4 fL 9.4 - 12.4 fL [facility] Platelets (Bld) [#/Vol] 232 10*3/uL [facility] RBC (Bld) [#/Vol] 3.85 10*6/uL [facility] WBC (Bld) [#/Vol] 8.77 10*3/uL [facility] Basic metabolic 2000 panelon 08-02-2021 Anion gap [Moles/Vol] 11 mmol/L 10 - 2 0 mmol/L [facility] Calcium [Mass/Vol] 9.0 mg/dL 8.4 - 10. 2 mg/dL [facility] Chloride [Moles/Vol] 113 mmol/L High 98 - 10 8 mmol/L [facility] Creatinine [Mass/Vol] 1.39 mg/dL High 0.40 - 1.10 [facility] GFR/1.73 sq M.predicted CKD-EPI (S/P/Bld) [Vol rate/Area] 49 Low >=60 mL/min/1.73 m2 [facility] Glucose [Mass/Vol] 123 mg/dL High 65 - 99 mg/dL [facility] HCO3 [Moles/Vol] 22 mmol/L 21 - 32 mmol/L [facility] Interpretation and review of laboratory results Abnormal [facility] Potassium [Moles/Vol] 4.3 mmol/L 3.5 - 5.1 mmol/L [facility] Sodium [Moles/Vol] 142 mmol/L 135 - 145 mmol/L [facility] Urea nitrogen [Mass/Vol] 12 mg/dL 8 - 25 mg/dL [facility] Urea nitrogen/Creatinine [Mass ratio] 8.6 mg/mg Low [facility] The eGFR should be used for monitoring renal function only and not for medication dosing. [facility] CBC panel Auto (Bld)on 08-02 Erythrocyte distribution width (RBC) [Entitic vol] 13.1 % 11.6 - 14.8 % [facility] Hematocrit (Bld) [Volume fraction] 40.5 % 36.0 - 46.0 % [facility] Hemoglobin (Bld) [Mass/Vol] 12.5 g/dL 12.0 - 16.0 g/dL [facility] Interpretation and review of laboratory results Abnormal [facility] MCH (RBC) [Entitic mass] 31.3 pg 26.0 - 34.0 pg [facility] MCHC (RBC) [Mass/Vol] 30.9 g/dL Low 31.0 - 37.0 g/dL [facility] MCV (RBC) [Entitic vol] 101.3 fL High 80.0 - 100.0 fL [facility] Nucleated RBC (Bld) [#/Vol] 0.00 10*3/uL [facility] Nucleated RBC/100 WBC (Bld) [Ratio] 0.0 % [facility] Platelet mean volume (Bld) [Entitic vol] 9.7 fL 9.4 - 12.4 fL [facility] Platelets (Bld) [#/Vol] 223 10*3/uL [facility] RBC (Bld) [#/Vol] 4.00 10*6/uL [facility] WBC (Bld) [#/Vol] 13.38 10*3/uL High [facility] CBC panel Auto (Bld)on 08-01 Erythrocyte distribution width (RBC) [Entitic vol] 13.7 % 11.6 - 14.8 % [facility] Hematocrit (Bld) [Volume fraction] 35.7 % Low 36.0 - 46.0 % [facility] Hemoglobin (Bld) [Mass/Vol] 11.6 g/dL Low 12.0 - 16.0 g/dL [facility] Interpretation and review of laboratory results Abnormal [facility] MCH (RBC) [Entitic mass] 31.4 pg 26.0 - 34.0 pg [facility] MCHC (RBC) [Mass/Vol] 32.5 g/dL 31.0 - 37.0 g/dL [facility] MCV (RBC) [Entitic vol] 96.7 fL 80.0 - 100.0 fL [facility] Nucleated RBC (Bld) [#/Vol] 0.00 10*3/uL [facility] Nucleated RBC/100 WBC (Bld) [Ratio] 0.0 % [facility] Platelet mean volume (Bld) [Entitic vol] 9.0 fL Low 9.4 - 12.4 fL [facility] Platelets (Bld) [#/Vol] 243 10*3/uL [facility] RBC (Bld) [#/Vol] 3.69 10*6/uL Low [facility] WBC (Bld) [#/Vol] 6.60 10*3/uL [facility] Comprehensive metabolic 2000 panelon 08-01-2021 Albumin [Mass/Vol] 2.4 g/dL Low 3.2 - 5.2 g/dL [facility] ALP [Catalytic activity/Vol] 74 U/L 40 - 150 U/L [facility] ALT [Catalytic activity/Vol] 18 U/L 14 - 65 U/L [facility] Anion gap [Moles/Vol] 7 mmol/L Low 10 - 2 0 mmol/L [facility] AST [Catalytic activity/Vol] 16 U/L 0 - 45 U/L [facility] Bilirubin [Mass/Vol] 0.2 mg/dL 0.0 - 1 .3 mg/dL [facility] Calcium [Mass/Vol] 8.6 mg/dL 8.4 - 10. 2 mg/dL [facility] Chloride [Moles/Vol] 113 mmol/L High 98 - 10 8 mmol/L [facility] Creatinine [Mass/Vol] 1.40 mg/dL High 0.40 - 1.10 [facility] GFR/1.73 sq M.predicted CKD-EPI (S/P/Bld) [Vol rate/Area] 48 Low >=60 mL/min/1.73 m2 [facility] Glucose [Mass/Vol] 146 mg/dL High 65 - 99 mg/dL [facility] HCO3 [Moles/Vol] 26 mmol/L 21 - 32 mmol/L [facility] Interpretation and review of laboratory results Abnormal [facility] Potassium [Moles/Vol] 3.9 mmol/L 3.5 - 5.1 mmol/L [facility] Protein [Mass/Vol] 5.6 g/dL Low 6.0 - 8.0 g/dL [facility] Sodium [Moles/Vol] 142 mmol/L 135 - 145 mmol/L [facility] Urea nitrogen [Mass/Vol] 16 mg/dL 8 - 25 mg/dL [facility] Urea nitrogen/Creatinine [Mass ratio] 11.4 mg/mg [facility] The eGFR should be used for monitoring renal function only and not for medication dosing. [facility] Magnesiumon 08-01-2021 Magnesium [Mass/Vol] 2.2 mg/dL 1.6 - 2 .4 mg/dL [facility] Magnesium [Mass/Vol]on 08-01 Interpretation and review of laboratory results Normal [facility] XR OR ANKLE RIGHT 2 VIEWSon 08-01-2021 XR OR ANKLE RIGHT 2 VIEWS EXAMINATION: XR OR ANKLE RIGHT 2 VIEWS HISTORY: ORDERING SYSTEM PROVIDED HISTORY: Right ankle ORIF/Fracture, TECHNOLOGIST PROVIDED HISTORY: Injury/Trauma Reason for exam: Right ankle ORIF/fracture Encounter Type: Initial Mechanism of injury: Fluoro dose in mGy: .92 ORDERING SYSTEM PROVIDED DIAGNOSIS CODES: S82.891A Closed fracture of right ankle, initial encounter N17.9 [facility] (acute kidney injury) (HCC) COMPARISON: None. TECHNIQUE: Fluoro dose in Ka,r mGy: 0.92 Intraoperative fluoroscopy was provided. FINDINGS: There are plate and screws attached to the distal fibula. There are 2 partially threaded screws in the medial malleolus. Additional plate and screws are attached to the lateral aspect of the distal tibia. IMPRESSION: As above. [employer] Workstation ID: [id number] Dictated by: DARRIN WALKER on FriAug 01, 2021 6:10:04 PM EDT Transcribed by: MISHA DUNN on FriAug 01, 2021 6:12:09 PM EDT Finalized by: DARRIN WALKER on FriAug 01, 2021 6:15:16 PM EDT Normal [facility] Comment on above: Order Comment: Injur y/Trauma or Illness?:Injury/Trauma How long have you had these symptoms (acute/chronic)?:Acute Reason for exam?:Right ankle ORIF/fracture Type of Exam?:Initial Mechanism of injury?: Fluoro time in minutes:.5 0.50 minutes or 30 seconds Fluoro dose in mGy?:.92 XR OR Ankle Right 2 Viewson 08-01-2021 As above. [employer] Workstation ID: [id number] GE RIS EXAMINATION: XR OR ANKLE RIGHT 2 VIEWS HISTORY: ORDERING SYSTEM PROVIDED HISTORY: Right ankle ORIF/Fracture, TECHNOLOGIST PROVIDED HISTORY: Injury/Trauma Reason for exam: Right ankle ORIF/fracture Encounter Type: Initial Mechanism of injury: Fluoro dose in mGy: .92 ORDERING SYSTEM PROVIDED DIAGNOSIS CODES: S82.891A Closed fracture of right ankle, initial encounter N17.9 [facility] (acute kidney injury) (HCC) COMPARISON: None. TECHNIQUE: Fluoro dose in Ka,r mGy: 0.92 Intraoperative fluoroscopy was provided. FINDINGS: There are plate and screws attached to the distal fibula. There are 2 partially threaded screws in the medial malleolus. Additional plate and screws are attached to the lateral aspect of the distal tibia. [facility] Aaron, Darrin Macias MD - 08/01/2021 EXAMINATION: XR OR ANKLE RIGHT 2 VIEWS HISTORY: ORDERING SYSTEM PROVIDED HISTORY: Right ankle ORIF/Fracture, TECHNOLOGIST PROVIDED HISTORY: Injury/Trauma Reason for exam: Right ankle ORIF/fracture Encounter Type: Initial Mechanism of injury: Fluoro dose in mGy: .92 ORDERING SYSTEM PROVIDED DIAGNOSIS CODES: S82.891A Closed fracture of right ankle, initial encounter N17.9 [facility] (acute kidney injury) ([facility]) COMPARISON: None. TECHNIQUE: Fluoro dose in Ka,r mGy: 0.92 Intraoperative fluoroscopy was provided. FINDINGS: There are plate and screws attached to the distal fibula. There are 2 partially threaded screws in the medial malleolus. Additional plate and screws are attached to the lateral aspect of the distal tibia. IMPRESSION: As above. [facility]/[employer] Workstation ID: [id number] [facility] Radiology Study observation (narrative) [facility] XR OR Ankle Right 2 ViewsOrd ered By: Darrin Walker on 08-01-2021 [facility] Work Phone: Basic metabolic 1998 panelon 07-31-2021 Anion gap [Moles/Vol] 10 mmol/L 10 - 2 0 mmol/L [facility] Chloride [Moles/Vol] 111 mmol/L High 98 - 10 8 mmol/L [facility] Creatinine [Mass/Vol] 1.50 mg/dL High 0.40 - 1.10 [facility] GFR/1.73 sq M.predicted CKD-EPI (S/P/Bld) [Vol rate/Area] 44 Low >=60 mL/min/1.73 m2 [facility] Glucose [Mass/Vol] 83 mg/dL 65 - 99 mg/dL [facility] HCO3 [Moles/Vol] 26 mmol/L 21 - 32 mmol/L [facility] Interpretation and review of laboratory results Abnormal [facility] Potassium [Moles/Vol] 3.9 mmol/L 3.5 - 5.1 mmol/L [facility] Sodium [Moles/Vol] 143 mmol/L 135 - 145 mmol/L [facility] Urea nitrogen [Mass/Vol] 16 mg/dL 8 - 25 mg/dL [facility] Urea nitrogen/Creatinine [Mass ratio] 10.7 mg/mg [facility] The eGFR should be used for monitoring renal function only and not for medication dosing. [facility] CBC WITH AUTO DIFFERENTIALon 07-31-2021 Basophils (Bld) [#/Vol] 0.08 10*3/uL [facility] Basophils/100 WBC (Bld) 0.9 % [facility] Eosinophils (Bld) [#/Vol] 0.09 10*3/uL [facility] Eosinophils/100 WBC (Bld) 1.1 % [facility] Erythrocyte distribution width (RBC) [Entitic vol] 13.2 % 11.6 - 14.8 % [facility] Hematocrit (Bld) [Volume fraction] 42.5 % 36.0 - 46.0 % [facility] Hemoglobin (Bld) [Mass/Vol] 13.8 g/dL 12.0 - 16.0 g/dL [facility] Immature granulocytes (Bld) [#/Vol] 0.02 10*3/uL [facility] Immature granulocytes/100 WBC (Bld) 0.20 % [facility] Comment on above: The IG parameter is the percentage of metamyelocytes, myelocytes and promyelocytes. An immature granulocyte count (IG) of 1% or more suggests the possibility of infection, an IG count of 3% is very likely related to an infection. Interpretation and review of laboratory results Abnormal [facility] Lymphocytes (Bld) [#/Vol] 2.39 10*3/uL [facility] Lymphocytes/100 WBC (Bld) 27.9 % [facility] MCH (RBC) [Entitic mass] 30.9 pg 26.0 - 34.0 pg [facility] MCHC (RBC) [Mass/Vol] 32.5 g/dL 31.0 - 37.0 g/dL [facility] MCV (RBC) [Entitic vol] 95.1 fL 80.0 - 100.0 fL [facility] Monocytes (Bld) [#/Vol] 0.69 10*3/uL [facility] Monocytes/100 WBC (Bld) 8.1 % [facility] Neutrophils (Bld) [#/Vol] 5.30 10*3/uL [facility] Neutrophils/100 WBC (Bld) 61.8 % [facility] Nucleated RBC (Bld) [#/Vol] 0.00 10*3/uL [facility] Nucleated RBC/100 WBC (Bld) [Ratio] 0.0 % [facility] Platelet mean volume (Bld) [Entitic vol] 9.2 fL Low 9.4 - 12.4 fL [facility] Platelets (Bld) [#/Vol] 318 10*3/uL [facility] RBC (Bld) [#/Vol] 4.47 10*6/uL [facility] WBC (Bld) [#/Vol] 8.57 10*3/uL [facility] COVID-19, MOLECULARon 2020 SARS-CoV-2 (COVID-19) RNA YUNG+probe Ql (Unsp spec) Not detected Normal Not Detected [facility] Comment on above: Order Comment: This test was performed under the FDA's Emergency Use Authorization (EUA). Testing was performed using the Lucretia Connor SARS-CoV-2 RT-PCR AND Influenza A/B Nucleic Acid Test on the Connor Jeanne System. This test has not been approved for use in asymptomatic patients and its performance in this patient population has not been evaluated. Negative results do not rule out the presence of SARS-CoV-2, influenza A, and/or influenza B. Fact sheets for the EUA can be found at the following links: For Healthcare Providers: https://www.fda.gov/media/150131/download For Patients: https://www.fda.gov/media/796506/download Performed By: #### L [id number] #### LAB [address], [place] [address] Darío Gaston M.D. [id number] CT ANKLE RIGHT WITHOUT CONTR Naima 07-31-2021 CT ANKLE RIGHT WITHOUT CONTRAST EXAMINATION: CT ANKLE RIGHT WITHOUT CONTRAST HISTORY: ORDERING SYSTEM PROVIDED HISTORY: fracture; ortho request, TECHNOLOGIST PROVIDED HISTORY: Injury/Trauma Reason for exam: fall, rt ankle fx Encounter Type: Initial Mechanism of injury: fall ORDERING SYSTEM PROVIDED DIAGNOSIS CODES: COMPARISON: Right ankle radiographs, today at 3:47 p.m. TECHNIQUE: Dose reduction techniques were achieved by using automated exposure control and/or adjustment of mA and/or kV according to patient size and/or use of iterative reconstruction technique. CT of the right ankle performed without contrast. FINDINGS: Oblique fracture of the distal fibula with extension to the distal tibiofibular syndesmosis. The distal fracture fragment is displaced laterally by approximately 3 mm and posteriorly by approximately 3 mm. Talofibular articulation is maintained. Oblique fracture of the medial malleolus with distraction of the fracture margin measuring 6 mm. There is a longitudinal fracture of the posterior malleolus with distraction measuring 5 mm in AP dimension. Resultant anteromedial tibiotalar subluxation measuring approximately 8 mm with widening of the anterior tibiotalar joint space. The talus is intact. The calcaneus is intact. Osseous structures in the midfoot are not assessed in their entirety. IMPRESSION: 1. Trimalleolar fracture is noted with tibiotalar subluxation and widening of the anterior tibiotalar joint space. [employer] Workstation ID: [id number] Dictated by: ADRIÁN LEWIS on FriJul 31, 2021 5:17:15 PM EDT Transcribed by: ALVA COOLEY on FriJul 31, 2021 5:55:53 PM EDT Finalized by: ADRIÁN LEWIS on FriJul 31, 2021 7:29:03 PM EDT [facility] Comment on above: Order Comment: Injur y/Trauma or Illness?:Injury/Trauma How long have you had these symptoms (acute/chronic)?:Acute Reason for exam?:fall, rt ankle fx Type of Exam?:Initial Mechanism of injury?:fall CT Ankle Right Without Contr naima 07-31-2021 1. Trimalleolar fracture is noted with tibiotalar subluxation and widening of the anterior tibiotalar joint space. [employer] Workstation ID: [id number] [employer] [facility] EXAMINATION: CT ANKLE RIGHT WITHOUT CONTRAST HISTORY: ORDERING SYSTEM PROVIDED HISTORY: fracture; ortho request, TECHNOLOGIST PROVIDED HISTORY: Injury/Trauma Reason for exam: fall, rt ankle fx Encounter Type: Initial Mechanism of injury: fall ORDERING SYSTEM PROVIDED DIAGNOSIS CODES: COMPARISON: Right ankle radiographs, today at 3:47 p.m. TECHNIQUE: Dose reduction techniques were achieved by using automated exposure control and/or adjustment of mA and/or kV according to patient size and/or use of iterative reconstruction technique. CT of the right ankle performed without contrast. FINDINGS: Oblique fracture of the distal fibula with extension to the distal tibiofibular syndesmosis. The distal fracture fragment is displaced laterally by approximately 3 mm and posteriorly by approximately 3 mm. Talofibular articulation is maintained. Oblique fracture of the medial malleolus with distraction of the fracture margin measuring 6 mm. There is a longitudinal fracture of the posterior malleolus with distraction measuring 5 mm in AP dimension. Resultant anteromedial tibiotalar subluxation measuring approximately 8 mm with widening of the anterior tibiotalar joint space. The talus is intact. The calcaneus is intact. Osseous structures in the midfoot are not assessed in their entirety. Adrián Skaggs MD - 07/31/2021 EXAMINATION: CT ANKLE RIGHT WITHOUT CONTRAST HISTORY: ORDERING SYSTEM PROVIDED HISTORY: fracture; ortho request, TECHNOLOGIST PROVIDED HISTORY: Injury/Trauma Reason for exam: fall, rt ankle fx Encounter Type: Initial Mechanism of injury: fall ORDERING SYSTEM PROVIDED DIAGNOSIS CODES: COMPARISON: Right ankle radiographs, today at 3:47 p.m. TECHNIQUE: Dose reduction techniques were achieved by using automated exposure control and/or adjustment of mA and/or kV according to patient size and/or use of iterative reconstruction technique. CT of the right ankle performed without contrast. FINDINGS: Oblique fracture of the distal fibula with extension to the distal tibiofibular syndesmosis. The distal fracture fragment is displaced laterally by approximately 3 mm and posteriorly by approximately 3 mm. Talofibular articulation is maintained. Oblique fracture of the medial malleolus with distraction of the fracture margin measuring 6 mm. There is a longitudinal fracture of the posterior malleolus with distraction measuring 5 mm in AP dimension. Resultant anteromedial tibiotalar subluxation measuring approximately 8 mm with widening of the anterior tibiotalar joint space. The talus is intact. The calcaneus is intact. Osseous structures in the midfoot are not assessed in their entirety. IMPRESSION: 1. Trimalleolar fracture is noted with tibiotalar subluxation and widening of the anterior tibiotalar joint space. [employer] Workstation ID: [id number] [facility] Radiology Study observation (narrative) [facility] CT Ankle Right Without Contr astOrdered By: Adrián Lewis on 07-31-2021 [facility] Work Phone: No Panel Informationon 07-31 FINDINGS/ Apparent acute trimalleolar fracture of the right ankle with disruption of the ankle mortise and widening of the medial clear space up to approximately 7 mm. Acute fracture of the distal fibula demonstrates mild lateral displacement and mild foreshortening. Acute mildly displaced and angulated fracture of the medial malleolus. Acute nondisplaced fracture of the posterior malleolus is suspected on the lateral view. Proximal extent of the right tibia/fibula appears intact. Normal bony alignment at the knee. Workstation ID: [id number] [employer] EXAMINATION: XR ANKLE RIGHT 3+ VIEWS (STANDARD); XR TIBIA FIBULA RIGHT 2 VIEWS HISTORY: ORDERING SYSTEM PROVIDED HISTORY: deformity, TECHNOLOGIST PROVIDED HISTORY: Injury/Trauma Reason for exam: fall; deformity Cancer History: Surgery, RadiationHistory: Encounter Type: Initial Mechanism of injury: ORDERING SYSTEM PROVIDED DIAGNOSIS CODES: COMPARISON: No relevant prior study available at time of interpretation. [employer] Jaja Araujo MD - 07/31/2021 EXAMINATION: XR ANKLE RIGHT 3+ VIEWS (STANDARD); XR TIBIA FIBULA RIGHT 2 VIEWS HISTORY: ORDERING SYSTEM PROVIDED HISTORY: deformity, TECHNOLOGIST PROVIDED HISTORY: Injury/Trauma Reason for exam: fall; deformity Cancer History: Surgery, RadiationHistory: Encounter Type: Initial Mechanism of injury: ORDERING SYSTEM PROVIDED DIAGNOSIS CODES: COMPARISON: No relevant prior study available at time of interpretation. IMPRESSION: FINDINGS/ Apparent acute trimalleolar fracture of the right ankle with disruption of the ankle mortise and widening of the medial clear space up to approximately 7 mm. Acute fracture of the distal fibula demonstrates mild lateral displacement and mild foreshortening. Acute mildly displaced and angulated fracture of the medial malleolus. Acute nondisplaced fracture of the posterior malleolus is suspected on the lateral view. Proximal extent of the right tibia/fibula appears intact. Normal bony alignment at the knee. Workstation ID: [id number] [facility] No Panel InformationOrdered By: Jaja Araujo on 07-31-2021 [facility] Work Phone: SARS-CoV-2 (COVID-19) RdRp g galilea YUNG+probe Ql (Resp)Ordered By: Mariel Pardo on 07-31-2021 Interpretation and review of laboratory results Normal [facility] SARS-CoV-2 (COVID-19) RNA YUNG+probe Ql (Resp) Not detected Not Detected [facility] This test was performed under the FDA's Emergency Use Authorization (EUA). Testing was performed using the Lucretia Connor SARS-CoV-2 RT-PCR & Influenza A/B Nucleic Acid Test on the Connor Jeanne System. This test has not been approved for use in asymptomatic patients and its performance in this patient population has not been evaluated. Negative results do not rule out the presence of SARS-CoV-2, influenza A, and/or influenza B. Fact sheets for the EUA can be found at the following links: For Healthcare Providers: https://www.fda.gov/ media/569811/downloa d For Patients: https://www.fda.gov/ media/170639/downloa d [facility] SPLINT APPLICATIONon 021 Kiarra Bennett PA-C 07/31/2021 5:57 PM Splint Application Date/Time: 07/31/2021 5:56 PM Performed by: Kiarra Bennett PA-C Authorized by: Cristian Ely MD Verbal consent: obtained Required items: required blood products, implants, devices, and special equipment available Location details: right ankle Splint type: ankle stirrup (posterior leg with sugartong) Supplies used: cotton padding, elastic bandage and Ortho-Glass Post-procedure: The splinted body part was neurovascularly intact following the procedure. Patient tolerance: patient tolerated the procedure well with no immediate complications [facility] XR ANKLE RIGHT 3+ VIEWS (STA NDARD)on 07-31-2021 XR ANKLE RIGHT 3+ VIEWS (STANDARD) EXAMINATION: XR ANKLE RIGHT 3+ VIEWS (STANDARD); XR TIBIA FIBULA RIGHT 2 VIEWS HISTORY: ORDERING SYSTEM PROVIDED HISTORY: deformity, TECHNOLOGIST PROVIDED HISTORY: Injury/Trauma Reason for exam: fall; deformity Cancer History: Surgery, RadiationHistory: Encounter Type: Initial Mechanism of injury: ORDERING SYSTEM PROVIDED DIAGNOSIS CODES: COMPARISON: No relevant prior study available at time of interpretation. IMPRESSION: FINDINGS/ Apparent acute trimalleolar fracture of the right ankle with disruption of the ankle mortise and widening of the medial clear space up to approximately 7 mm. Acute fracture of the distal fibula demonstrates mild lateral displacement and mild foreshortening. Acute mildly displaced and angulated fracture of the medial malleolus. Acute nondisplaced fracture of the posterior malleolus is suspected on the lateral view. Proximal extent of the right tibia/fibula appears intact. Normal bony alignment at the knee. Workstation ID: [id number] Dictated by: JAJA ARAUJO on FriJul 31, 2021 4:10:40 PM EDT Transcribed by: JAJA ARAUJO on FriJul 31, 2021 4:10:40 PM EDT Finalized by: JAJA ARAUJO on FriJul 31, 2021 4:10:40 PM EDT Normal [facility] Comment on above: Order Comment: Injur y/Trauma or Illness?:Injury/Trauma How long have you had these symptoms (acute/chronic)?:Acute Reason for exam?:fall; deformity History of cancer?: Surgeries, chemotherapy, or radiation?: Type of Exam?:Initial Mechanism of injury?: Radiology Study observation (narrative) [facility] XR TIBIA FIBULA RIGHT 2 VIEW Son 07-31-2021 XR TIBIA FIBULA RIGHT 2 VIEWS EXAMINATION: XR ANKLE RIGHT 3+ VIEWS (STANDARD); XR TIBIA FIBULA RIGHT 2 VIEWS HISTORY: ORDERING SYSTEM PROVIDED HISTORY: deformity, TECHNOLOGIST PROVIDED HISTORY: Injury/Trauma Reason for exam: fall; deformity Cancer History: Surgery, RadiationHistory: Encounter Type: Initial Mechanism of injury: ORDERING SYSTEM PROVIDED DIAGNOSIS CODES: COMPARISON: No relevant prior study available at time of interpretation. IMPRESSION: FINDINGS/ Apparent acute trimalleolar fracture of the right ankle with disruption of the ankle mortise and widening of the medial clear space up to approximately 7 mm. Acute fracture of the distal fibula demonstrates mild lateral displacement and mild foreshortening. Acute mildly displaced and angulated fracture of the medial malleolus. Acute nondisplaced fracture of the posterior malleolus is suspected on the lateral view. Proximal extent of the right tibia/fibula appears intact. Normal bony alignment at the knee. Workstation ID: [id number] Dictated by: JAJA ARAUJO on FriJul 31, 2021 4:10:40 PM EDT Transcribed by: JAJA ARAUJO on FriJul 31, 2021 4:10:40 PM EDT Finalized by: JAJA ARAUJO on FriJul 31, 2021 4:10:40 PM EDT [facility] Comment on above: Order Comment: Injur y/Trauma or Illness?:Injury/Trauma How long have you had these symptoms (acute/chronic)?:Acute Reason for exam?:fall History of cancer?: Surgeries, chemotherapy, or radiation?: Type of Exam?:Initial Mechanism of injury?: XR Tibia Fibula Right 2 View son 07-31-2021 Radiology Study observation (narrative) [facility] POCT INFLUENZA, A Bon 2018 FLUAV Ag IA Ql (Nph) Positive [facility] FLUBV Ag IA Ql (Nph) Negative [facility]IT A [employer] FINGER, 3RD (MIDDLE)on 06-17 FINGER, 3RD (MIDDLE) Final ReportAccession No: [id number] Performed: Jun 17 2017 10:36AMExamination: RIGHT FINGER, 3RD (MIDDLE)Clinical history: Pain/traumaThree views of the right middle finger 06/17/2017 10:36 AMComparison: None.Findings:Soft tissue swelling is noted about the PIP joint. There is a smallosseous fragment about the anterior base of the middle phalanx suggestiveof an avulsion injury. The remainder the visualized hand is within normallimits.Impress ion:Soft tissue swelling about the PIP joint of the middle finger withfindings suggestive of an avulsion fracture from the base of the middlephalanx.Interp reting Physician: YULISA CROW M.D.Trans: : cc: Normal [facility] Lab Report: CBC W/Diff, Auto matedon 02-05-2017 Basophils/100 leukocytes 0.5 % Invalid Interpretation Code 0-1 [facility] Work Phone: Eosinophils/100 leukocytes 3.6 % Invalid Interpretation Code 0-5 [facility] [employer] Work Phone: Erythrocytes (RBC) 3.96 10*6/uL Low 4.2-5.4 [facility] [employer] Work Phone: Hematocrit (HCT) 36.2 % Low 37-47 [facility] [employer] Work Phone: Hemoglobin (HGB) 11.8 g/dL Low 12.0-15.0 [facility] [employer] Work Phone: immature granulocytes, percentage of total cells, blood 0.200 % Invalid Interpretation Code 0.0-0.9 [facility] Work Phone: Lymphocytes 2.25 X10 3/UL Invalid Interpretation Code 0.83-4.51 [facility] Work Phone: Lymphocytes/100 leukocytes 35.7 % Invalid Interpretation Code 19-41 [facility] Work Phone: MCH 29.8 pg Invalid Interpretation Code 27.0-32.0 [facility] Work Phone: MCHC 32.6 G/GL Invalid Interpretation Code 32-36 [facility] Work Phone: MCV 91.4 fL Invalid Interpretation Code 81-99 [facility] Work Phone: Monocytes/100 leukocytes 6.7 % Invalid Interpretation Code 0-10 [facility] Work Phone: neutrophil count, blood 3.4 X10 3/UL Invalid Interpretation Code 2.0-7.7 [facility] Work Phone: Neutrophils/100 leukocytes 53.3 % Invalid Interpretation Code 47-70 [facility] Work Phone: Platelets 260 10*3/mm3 Invalid Interpretation Code 150-450 [facility] Work Phone: PMV by Kathrine 8.9 fL Invalid Interpretation Code 6.2-12.0 [facility] Work Phone: RDW-CA 14.0 % Invalid Interpretation Code 11.6-14.6 [facility] Work Phone: red blood cell distribution width, size density 47.2 fL High 35.1-43.9 [facility] Work Phone: WBC (Leukocytes) 6.3 10*3/uL Invalid Interpretation Code 4.4-11.0 [facility] Work Phone: Lab Report: Comprehensive Me tabolic Profilon 02-05-2017 Alanine aminotransferase (ALT) 18 U/L Invalid Interpretation Code 12-78 [facility] Work Phone: Albumin 2.9 g/dL Low 3.4-5.0 [facility] [employer] Work Phone: Albumin/Globulin Ratio 1 {ratio} Invalid Interpretation Code 0.9-2.4 [facility] [employer] Work Phone: Alkaline phosphatase (ALP) 88 U/L Invalid Interpretation Code 45-117 [facility] [employer] Work Phone: Anion gap 7 mmol/L Invalid Interpretation Code 5-15 [facility] [employer] Work Phone: Aspartate aminotransferase (AST) 18 U/L Invalid Interpretation Code 15-37 [facility] [employer] Work Phone: Bilirubin (total) 0.50 mg/dL Invalid Interpretation Code 0.20-1.00 [facility] [employer] Work Phone: BUN/Creatinine Ratio 9.0 RATIO Low 10-20 [facility] [employer] Work Phone: Calcium 8.6 mg/dL Invalid Interpretation Code 8.5-10.1 [facility] [employer] Work Phone: Chloride 111 mmol/L High 98-107 [facility] [employer] Work Phone: CO2 25.0 mmol/L Invalid Interpretation Code 21.0-32.0 [facility] [employer] Work Phone: Creatinine 40.47 mL/min Invalid Interpretation Code [facility] [employer] Work Phone: Creatinine 1.33 mg/dL High 0.55-1.02 [facility] [employer] Work Phone: eGFR (non-black) 54 mL/min/{1.73_m2} Low >60 [facility] [employer] Work Phone: eGFR (non-black) 44 mL/min/{1.73_m2} Low >60 [facility] [employer] Work Phone: Globulin 3.0 g/dL Invalid Interpretation Code 2.3-3.5 [facility] [employer] Work Phone: Glucose 83 mg/dL Invalid Interpretation Code 70-110 [facility] [employer] Work Phone: Potassium 4.1 mmol/L Invalid Interpretation Code 3.5-5.1 [facility] [employer] Work Phone: Protein 5.9 g/dL Low 6.4-8.2 [facility] [employer] Work Phone: Sodium 143 mmol/L Invalid Interpretation Code 136-145 [facility] [employer] Work Phone: Urea nitrogen 12 mg/dL Invalid Interpretation Code 7-18 [facility] [employer] Work Phone: Lab Report: Lactic Acidon Lactate 0.8 mmol/L Invalid Interpretation Code 0.4-2.0 [facility] [employer] Work Phone: Office Visiton 08-10-2012 Documentation of current medications (procedure) Done Invalid Interpretation Code [facility] [employer] Work Phone: Office Visiton 07-13-2012 Tobacco use [facility]PHS former smoker Invalid Interpretation Code [facility] [employer] Work Phone: Vital Signs Date Time Vital Sign Value Performing Clinician Facility 06-15-2025 10:39-0400 Body mass index (BMI) [Ratio] 27.99 kg/m2 Rudy Aburto MD Work Phone: [facility] 06-15-2025 10:39-0400 Body weight 71.67 kg Rudy Aburto MD Work Phone: [facility] 06-15-2025 10:39-0400 Diastolic blood pressure 86 mm[Hg] Rudy Aburto MD Work Phone: [facility] 06-15-2025 10:39-0400 Heart rate 80 /min Rudy Aburto MD Work Phone: [facility] 06-15-2025 10:39-0400 SaO2% (BldA) [Mass fraction] 98 % Rudy Aburto MD Work Phone: [facility] 06-15-2025 10:39-0400 Systolic blood pressure 138 mm[Hg] Rudy Aburto MD Work Phone: [facility] 03-23-2025 11:11-0400 Body mass index (BMI) [Ratio] 28.02 kg/m2 Rudy Aburto MD Work Phone: [employer] 03-23-2025 11:11-0400 Body weight 71.76 kg Rudy Aburto MD Work Phone: [employer] 03-23-2025 11:11-0400 Diastolic blood pressure 82 mm[Hg] Rudy Aburto MD Work Phone: [employer] 03-23-2025 11:11-0400 Heart rate 83 /min Rudy Aburto MD Work Phone: [employer] 03-23-2025 11:11-0400 SaO2% (BldA) [Mass fraction] 98 % Rudy Aburto MD Work Phone: [employer] 03-23-2025 11:11-0400 Systolic blood pressure 136 mm[Hg] Rudy Aburto MD Work Phone: [employer] 12-27-2024 12:18-0400 Body temperature 97.39 [degF] Chair Pacheco DDS Work Phone: [employer] Work Phone: 12-27-2024 12:18-0400 Diastolic blood pressure 90 mm[Hg] Chair Pacheco DDS Work Phone: [employer] Work Phone: 12-27-2024 12:18-0400 Heart rate 66 /min Chair Pacheco DDS Work Phone: [employer] Work Phone: 12-27-2024 12:18-0400 Systolic blood pressure 142 mm[Hg] Chair Pacheco DDS Work Phone: [employer] Work Phone: 11-04-2024 09:04-0500 Body height 160 cm Justin Castillo [employer] TECH[employer]IC[employer] Work Phone: [employer] 11-04-2024 09:04-0500 Body mass index (BMI) [Ratio] 27.46 kg/m2 Justin Castillo [employer] TECH[employer] Work Phone: [facility] 11-04-2024 09:04-0500 Body temperature 96.1 [degF] Justin Castillo APRN[employer] Work Phone: [facility] 11-04-2024 09:04-0500 Body weight 70.31 kg Justin Castillo [employer] TECHNICIAN[employer] Work Phone: [facility] 10-21-2024 10:35-0500 Diastolic blood pressure 78 mm[Hg] Tom Cross MD Work Phone: [facility] 10-21-2024 10:35-0500 Heart rate 63 /min Tom Cross MD Work Phone: [facility] 10-21-2024 10:35-0500 Respiratory rate 15 /min Tom Cross MD Work Phone: [employer] [employer] [facility] 10-21-2024 10:35-0500 SaO2% (BldA) [Mass fraction] 93 % Tom Cross MD Work Phone: [facility] 10-21-2024 10:35-0500 Systolic blood pressure 138 mm[Hg] Tom Cross MD Work Phone: [facility] 10-21-2024 10:05-0500 Body temperature 97.5 [degF] Tom Cross MD Work Phone: [facility] 10-21-2024 07:01-0500 Body height 160 cm Tom Cross MD Work Phone: [facility] 10-21-2024 07:01-0500 Body mass index (BMI) [Ratio] 27.46 kg/m2 Tom Cross MD Work Phone: [facility] 10-21-2024 07:01-0500 Body weight 70.31 kg Tom Cross MD Work Phone: [facility] 09-20-2024 10:48-0500 Body height 160 cm Tom Cross MD Work Phone: [facility] 09-20-2024 10:48-0500 Body mass index (BMI) [Ratio] 29.05 kg/m2 Tom Cross MD Work Phone: [facility] 09-20-2024 10:48-0500 Body temperature 97.81 [degF] Tom Cross MD Work Phone: [facility] 09-20-2024 10:48-0500 Body weight 74.39 kg Tom Cross MD Work Phone: [facility] 09-16-2024 15:29-0500 Body mass index (BMI) [Ratio] 29.05 kg/m2 Rudy Aburto MD Work Phone: [facility] 09-16-2024 15:29-0500 Body weight 74.39 kg Rudy Aburto MD Work Phone: [facility] 09-16-2024 15:29-0500 Diastolic blood pressure 86 mm[Hg] Rudy Aburto MD Work Phone: [facility] 09-16-2024 15:29-0500 Systolic blood pressure 134 mm[Hg] Rudy Aburto MD Work Phone: [facility] 07-26-2024 10:37-0400 Body height 160 cm Debra Rigretchenm DO Work Phone: [facility] 07-26-2024 10:37-0400 Body mass index (BMI) [Ratio] 29.16 kg/m2 Debra Riehm DO Work Phone: [facility] 07-26-2024 10:37-0400 Body temperature 97.59 [degF] Debra Riehm DO Work Phone: [facility] 07-26-2024 10:37-0400 Body weight 74.66 kg Debra Rigretchenm DO Work Phone: [facility] 07-02-2024 02:02-0400 Diastolic blood pressure 88 mm[Hg] Lizbeth Up MD Work Phone: [facility] 07-02-2024 02:02-0400 Heart rate 68 /min Lizbeth Up MD Work Phone: [facility] 07-02-2024 02:02-0400 Respiratory rate 16 /min Lizbeth Up MD Work Phone: [facility] 07-02-2024 02:02-0400 SaO2% (BldA) [Mass fraction] 97 % Lizbeth Up MD Work Phone: [facility] 07-02-2024 02:02-0400 Systolic blood pressure 171 mm[Hg] Lizbeth Up MD Work Phone: [facility] 07-02-2024 00:10-0400 Body height 160 cm Lizbeth Up MD Work Phone: [facility] 07-02-2024 00:08-0400 Body temperature 98.1 [degF] Lizbeth Up MD Work Phone: [facility] 06-28-2024 11:18-0400 Body height 160 cm Debra Max DO Work Phone: [facility] 06-28-2024 11:18-0400 Body mass index (BMI) [Ratio] 29.19 kg/m2 Debra Max DO Work Phone: [facility] 06-28-2024 11:18-0400 Body weight 74.75 kg Debraerin Max DO Work Phone: [facility] 06-24-2024 15:17-0400 Body mass index (BMI) [Ratio] 28.87 kg/m2 Rudy Aburto MD Work Phone: [facility] 06-24-2024 15:17-0400 Body weight 73.94 kg Rudy Aburto MD Work Phone: [facility] 06-24-2024 15:17-0400 Diastolic blood pressure 62 mm[Hg] Rudy Aburto MD Work Phone: [facility] 06-24-2024 15:17-0400 Heart rate 66 /min Rudy Aburto MD Work Phone: [facility] 06-24-2024 15:17-0400 SaO2% (BldA) [Mass fraction] 99 % Rudy Aburto MD Work Phone: [facility] 06-24-2024 15:17-0400 Systolic blood pressure 124 mm[Hg] Rudy Aburto MD Work Phone: [facility] 03-26-2024 11:27-0400 Body height 160 cm Debra Max DO Work Phone: [facility] 03-26-2024 11:27-0400 Body mass index (BMI) [Ratio] 29.76 kg/m2 Debra Max DO Work Phone: [facility] 03-26-2024 11:27-0400 Body temperature 97.7 [degF] Debra Max DO Work Phone: [facility] 03-26-2024 11:27-0400 Body weight 76.2 kg Debra Max DO Work Phone: [facility] 03-24-2024 14:13-0400 Body mass index (BMI) [Ratio] 29.87 kg/m2 Rudy Aburto MD Work Phone: [facility] 03-24-2024 14:13-0400 Body weight 76.48 kg Rudy Aburto MD Work Phone: [facility] 03-24-2024 14:13-0400 Diastolic blood pressure 90 mm[Hg] Rudy Aburto MD Work Phone: [facility] 03-24-2024 14:13-0400 Heart rate 66 /min Rudy Aburto MD Work Phone: [facility] 03-24-2024 14:13-0400 SaO2% (BldA) [Mass fraction] 100 % Rudy Aburto MD Work Phone: [facility] 03-24-2024 14:13-0400 Systolic blood pressure 136 mm[Hg] Rudy Aburto MD Work Phone: [facility] 03-05-2024 14:56-0400 Body height 160 cm Debra Riehm DO Work Phone: 1(493)634-181611 [place] [address] 03-05-2024 14:56-0400 Body mass index (BMI) [Ratio] 30.11 kg/m2 Debra Riehm DO Work Phone: 2(365)727-543159 [address] 03-05-2024 14:56-0400 Body weight 77.11 kg Debra Riehm DO Work Phone: 8(287)979-607211 [place] [address] 01-13-2024 12:58-0400 Body height 160 cm Debra Riehm DO Work Phone: 3(234)482-349611 [place] [address] 01-13-2024 12:58-0400 Body mass index (BMI) [Ratio] 30.2 kg/m2 Debra Riehm DO Work Phone: 5(339)442-787811 [place] [address] 01-13-2024 12:58-0400 Body temperature 97.59 [degF] Debra Riehm DO Work Phone: 3(563)[phone] [place] [address] 01-13-2024 12:58-0400 Body weight 77.34 kg Debra Riehm DO Work Phone: [facility] 12-24-2023 09:12-0400 Body mass index (BMI) [Ratio] 30.01 kg/m2 Rudy Aburto MD Work Phone: [facility] 12-24-2023 09:12-0400 Body weight 76.84 kg Rudy Aburto MD Work Phone: [facility] 12-24-2023 09:12-0400 Diastolic blood pressure 70 mm[Hg] Rudy Aburto MD Work Phone: [facility] 12-24-2023 09:12-0400 Heart rate 75 /min Rudy Aburto MD Work Phone: [facility] 12-24-2023 09:12-0400 SaO2% (BldA) [Mass fraction] 98 % Rudy Aburto MD Work Phone: [facility] 12-24-2023 09:12-0400 Systolic blood pressure 118 mm[Hg] Rudy Aburto MD Work Phone: [facility] 10-21-2023 08:40-0500 Body temperature 97.4 [degF] Dr. Rehana Hernandez Work Phone: [facility] 10-21-2023 08:40-0500 Diastolic blood pressure 71 mm[Hg] Dr. Rehana Hernandez Work Phone: [facility] 10-21-2023 08:40-0500 Heart rate 80 /min Dr. Rehana Hernandez Work Phone: [facility] 10-21-2023 08:40-0500 Respiratory rate 16 /min Dr. Rehana Hernandez Work Phone: [facility] 10-21-2023 08:40-0500 SaO2% (BldA) [Mass fraction] 100 % Dr. Rehana Hernandez Work Phone: [facility] 10-21-2023 08:40-0500 Systolic blood pressure 132 mm[Hg] Dr. Rehana Hernandez Work Phone: [facility] 10-21-2023 06:45-0500 Body height 160.[address] Rehana Hernandez Work Phone: [facility] 10-21-2023 06:45-0500 Body mass index (BMI) [Ratio] 28.9 kg/m2 Dr. Rehana Hernandez Work Phone: [facility] 10-21-2023 06:45-0500 Body weight [address] Rehana Hernandez Work Phone: [facility] 09-21-2023 09:01-0500 Body height 160 cm [facility] 09-21-2023 09:01-0500 Body mass index (BMI) [Ratio] 27.46 kg/m2 [facility] 09-21-2023 09:01-0500 Body temperature 97.11 [degF] [facility] 09-21-2023 09:01-0500 Body weight 70.31 kg [facility] 09-21-2023 09:01-0500 Diastolic blood pressure 68 mm[Hg] [facility] 09-21-2023 09:01-0500 Heart rate 74 /min [facility] 09-21-2023 09:01-0500 Respiratory rate 16 /min [facility] 09-21-2023 09:01-0500 SaO2% (BldA) [Mass fraction] 98 % [facility] 09-21-2023 09:01-0500 Systolic blood pressure 141 mm[Hg] [facility] 09-10-2023 08:50-0500 Body height 160 cm Debra Max DO Work Phone: [facility] 09-10-2023 08:50-0500 Body mass index (BMI) [Ratio] 29.02 kg/m2 Debra Max DO Work Phone: [facility] 09-10-2023 08:50-0500 Body temperature 97.7 [degF] Debra Max DO Work Phone: [facility] 09-10-2023 08:50-0500 Body weight 74.3 kg Debra Max DO Work Phone: [facility] 08-12-2023 12:00-0500 Body temperature 98.2 [degF] Dr. Rehana Hernandez Work Phone: [facility] 08-12-2023 12:00-0500 Diastolic blood pressure 82 mm[Hg] Dr. Rehana Hernandez Work Phone: [facility] 08-12-2023 12:00-0500 Heart rate 64 /min Dr. Rehana Hernandez Work Phone: [facility] 08-12-2023 12:00-0500 Respiratory rate 18 /min Dr. Rehana Hernandez Work Phone: [facility] 08-12-2023 12:00-0500 SaO2% (BldA) [Mass fraction] 99 % Dr. Rehana Hernandez Work Phone: [facility] 08-12-2023 12:00-0500 Systolic blood pressure 161 mm[Hg] Dr. Rehana Hernandez Work Phone: 5(798)273-904786 [place] [address] 08-11-2023 12:07-0500 Body height 160.[address] Rehana Hernandez Work Phone: [facility] 08-11-2023 12:07-0500 Body weight 72.[address] Rehana Hernandez Work Phone: [facility] 08-07-2023 18:26-0400 Body mass index (BMI) [Ratio] 28.2 kg/m2 Dr. Rehana Hernandez Work Phone: [facility] 08-07-2023 17:00-0400 Diastolic blood pressure 65 mm[Hg] Dr. Rehana Hernandez Work Phone: [facility] 08-07-2023 17:00-0400 Heart rate 73 /min Dr. Rehana Hernandez Work Phone: [facility] 08-07-2023 17:00-0400 Respiratory rate 12 /min Dr. Rehana Hernandez Work Phone: [facility] 08-07-2023 17:00-0400 SaO2% (BldA) [Mass fraction] 99 % Dr. Rehana Hernandez Work Phone: [facility] 08-07-2023 17:00-0400 Systolic blood pressure 124 mm[Hg] Dr. Rehana Hernandez Work Phone: [facility] 08-07-2023 11:53-0400 Body height 160.[address] Rehana Hernandez Work Phone: [facility] 08-07-2023 11:53-0400 Body mass index (BMI) [Ratio] 28.7 kg/m2 Dr. Rehana Hernandez Work Phone: [facility] 08-07-2023 11:53-0400 Body temperature 97.8 [degF] Dr. Rehana Hernandez Work Phone: [facility] 08-07-2023 11:53-0400 Body weight 73.[address] Rehana Hernandez Work Phone: [facility] 07-11-2023 13:48-0400 Diastolic blood pressure 91 mm[Hg] Zen Alexander MD Work Phone: [facility] Comment on above: patient gesturing an d talking during exam 07-11-2023 13:48-0400 Heart rate 60 /min Zen Alexander MD Work Phone: [facility] 07-11-2023 13:48-0400 Respiratory rate 18 /min Zen Alexander MD Work Phone: [facility] 07-11-2023 13:48-0400 SaO2% (BldA) [Mass fraction] 100 % Zen Alexander MD Work Phone: [facility] 07-11-2023 13:48-0400 Systolic blood pressure 166 mm[Hg] Zen Alexander MD Work Phone: [facility] Comment on above: patient gesturing an d talking during exam 07-11-2023 11:45-0400 Body mass index (BMI) [Ratio] 29.23 kg/m2 Zen Alexander MD Work Phone: [facility] 07-11-2023 11:45-0400 Body weight 74.84 kg Zen Alexander MD Work Phone: [facility] 07-11-2023 11:43-0400 Body temperature 97.81 [degF] Zen Alexander MD Work Phone: [facility] 07-09-2023 15:25-0400 Diastolic blood pressure 70 mm[Hg] Rudy Aburto MD Work Phone: [facility] 07-09-2023 15:25-0400 Heart rate 56 /min Rudy Aburto MD Work Phone: [facility] 07-09-2023 15:25-0400 SaO2% (BldA) [Mass fraction] 98 % Rudy Aburto MD Work Phone: [facility] 07-09-2023 15:25-0400 Systolic blood pressure 130 mm[Hg] Rudy Aburto MD Work Phone: [facility] 05-15-2023 23:38-0400 Diastolic blood pressure 78 mm[Hg] Teja Beth MD Work Phone: 8(700)890-462020 [place] [address] 05-15-2023 23:38-0400 Heart rate 74 /min Teja Beth MD Work Phone: 1(835)167-113620 [place] [address] 05-15-2023 23:38-0400 Respiratory rate 18 /min Teja Beth MD Work Phone: 2(387)855-558420 [place] [address] 05-15-2023 23:38-0400 SaO2% (BldA) [Mass fraction] 98 % Teja Beth MD Work Phone: 4(315)372-022920 [place] [address] 05-15-2023 23:38-0400 Systolic blood pressure 148 mm[Hg] Teja Beth MD Work Phone: 2(009)932-022620 [place] [address] 05-15-2023 19:29-0400 Body height 160 cm Teja Beth MD Work Phone: 6(175)309-650720 [place] [address] 05-15-2023 19:27-0400 Body temperature 98.29 [degF] Teja Beth MD Work Phone: [facility] 04-17-2023 11:25-0400 Body mass index (BMI) [Ratio] 29.23 kg/m2 Rudy Aburto MD Work Phone: [facility] 04-17-2023 11:25-0400 Body weight 74.84 kg Rudy Aburto MD Work Phone: [facility] 04-17-2023 11:25-0400 Diastolic blood pressure 88 mm[Hg] Rudy Aburto MD Work Phone: [facility] 04-17-2023 11:25-0400 Heart rate 66 /min Rudy Aburto MD Work Phone: [facility] 04-17-2023 11:25-0400 SaO2% (BldA) [Mass fraction] 97 % Rudy Aburto MD Work Phone: [facility] 04-17-2023 11:25-0400 Systolic blood pressure 138 mm[Hg] Rudy Aburto MD Work Phone: [facility] 02-12-2023 15:37-0400 Body mass index (BMI) [Ratio] 29.41 kg/m2 Rudy Aburto MD Work Phone: [facility] 02-12-2023 15:37-0400 Body weight 75.3 kg Rudy Aburto MD Work Phone: [facility] 02-12-2023 15:37-0400 Diastolic blood pressure 90 mm[Hg] Rudy Aburto MD Work Phone: [facility] 02-12-2023 15:37-0400 Systolic blood pressure 138 mm[Hg] Rudy Aburto MD Work Phone: [facility] 02-07-2023 14:18-0400 Body height 160 cm Debra Max DO Work Phone: [facility] 02-07-2023 14:18-0400 Body mass index (BMI) [Ratio] 29.72 kg/m2 Debra Max DO Work Phone: [facility] 02-07-2023 14:18-0400 Body temperature 98.01 [degF] Debra Max DO Work Phone: [facility] 02-07-2023 14:18-0400 Body weight 76.11 kg Debra Max DO Work Phone: [facility] 01-16-2023 20:10-0400 Diastolic blood pressure 96 mm[Hg] Rehana Hernandez MD Work Phone: [facility] 01-16-2023 20:10-0400 Heart rate 66 /min Rehana Hernandez MD Work Phone: [facility] 01-16-2023 20:10-0400 Respiratory rate 16 /min Rehana Hernandez MD Work Phone: [facility] 01-16-2023 20:10-0400 SaO2% (BldA) [Mass fraction] 99 % Rehana Hernandez MD Work Phone: [facility] 01-16-2023 20:10-0400 Systolic blood pressure 155 mm[Hg] Rehana Hernandez MD Work Phone: [facility] 01-16-2023 18:31-0400 Body height 160 cm Rehana Hernandez MD Work Phone: [facility] 01-16-2023 18:29-0400 Body temperature 98.1 [degF] Rehana Hernandez MD Work Phone: [facility] 11-29-2022 14:06-0500 Body height 160 cm Markie Bennett CNP Work Phone: [facility] 11-29-2022 14:06-0500 Body mass index (BMI) [Ratio] 28.87 kg/m2 Markie Bennett CNP Work Phone: [facility] 11-29-2022 14:06-0500 Body weight 73.94 kg Markie Bennett CNP Work Phone: [employer] 11-29-2022 14:06-0500 Respiratory rate 18 /min Markie Bennett CNP Work Phone: [facility] 10-24-2022 14:55-0500 Body mass index (BMI) [Ratio] 29.28 kg/m2 Rudy Aburto MD Work Phone: [employer] 10-24-2022 14:55-0500 Body weight 74.98 kg Rudy Aburto MD Work Phone: [facility] 10-24-2022 14:55-0500 Diastolic blood pressure 80 mm[Hg] Rudy Aburto MD Work Phone: [facility] 10-24-2022 14:55-0500 Heart rate 76 /min Rudy Aburto MD Work Phone: [employer] 10-24-2022 14:55-0500 SaO2% (BldA) [Mass fraction] 98 % Rudy Aburto MD Work Phone: [employer] 10-24-2022 14:55-0500 Systolic blood pressure 150 mm[Hg] Rudy Aburto MD Work Phone: [employer] 09-09-2022 18:29-0500 Diastolic blood pressure 70 mm[Hg] Rehana Hernandez MD Work Phone: [facility] 09-09-2022 18:29-0500 Heart rate 65 /min Rehana Hernandez MD Work Phone: [facility] 09-09-2022 18:29-0500 Respiratory rate 18 /min Rehana Hernandez MD Work Phone: [facility] 09-09-2022 18:29-0500 SaO2% (BldA) [Mass fraction] 100 % Rehana Hernandez MD Work Phone: [employer] 09-09-2022 18:29-0500 Systolic blood pressure 128 mm[Hg] Rehana Hernandez MD Work Phone: [facility] 09-09-2022 16:36-0500 Body mass index (BMI) [Ratio] 27.81 kg/m2 Rehana Hernandez MD Work Phone: [facility] 09-09-2022 16:36-0500 Body weight 71.22 kg Rehana Hernandez MD Work Phone: [facility] 09-09-2022 16:35-0500 Body temperature 98.2 [degF] Rehana Hernandez MD Work Phone: [facility] 04-20-2022 14:15-0400 Body height 160 cm [facility] 04-20-2022 14:15-0400 Body temperature 98.24 [degF] [facility] 04-20-2022 14:15-0400 Diastolic blood pressure 92 mm[Hg] [facility] 04-20-2022 14:15-0400 Heart rate 86 /min [facility] 04-20-2022 14:15-0400 Respiratory rate 16 /min [facility] 04-20-2022 14:15-0400 SaO2% (BldA) [Mass fraction] 98 % [facility] 04-20-2022 14:15-0400 Systolic blood pressure 154 mm[Hg] [facility] 10-01-2021 16:55-0500 Body height 160 cm [facility] 10-01-2021 16:55-0500 Body temperature 99.14 [degF] [facility] 10-01-2021 16:55-0500 Diastolic blood pressure 70 mm[Hg] [facility] 10-01-2021 16:55-0500 Heart rate 117 /min [facility] 10-01-2021 16:55-0500 SaO2% (BldA) [Mass fraction] 97 % [facility] 10-01-2021 16:55-0500 Systolic blood pressure 103 mm[Hg] [facility] [employer] [facility] 09-11-2021 11:17-0500 Body height 160 cm Ximena John MD Work Phone: [facility] 09-11-2021 11:17-0500 Body mass index (BMI) [Ratio] 27.1 kg/m2 Ximena John MD Work Phone: [facility] 09-11-2021 11:17-0500 Body weight 69.4 kg Ximena John MD Work Phone: [facility] 09-11-2021 11:17-0500 Diastolic blood pressure 86 mm[Hg] Ximena John MD Work Phone: [facility] [facility] 09-11-2021 11:17-0500 Heart rate 80 /min Ximena John MD Work Phone: [facility] 09-11-2021 11:17-0500 Systolic blood pressure 131 mm[Hg] Ximena John MD Work Phone: [facility] 08-14-2021 13:53-0500 Body height 160 cm Ximena John MD Work Phone: [facility] 08-14-2021 13:53-0500 Body mass index (BMI) [Ratio] 27.1 kg/m2 Ximena John MD Work Phone: [facility] 08-14-2021 13:53-0500 Body weight 69.4 kg Ximena John MD Work Phone: [facility] 08-14-2021 13:53-0500 Diastolic blood pressure 85 mm[Hg] Ximena John MD Work Phone: [facility] 08-14-2021 13:53-0500 Heart rate 67 /min Ximena John MD Work Phone: [facility] 08-14-2021 13:53-0500 Systolic blood pressure 150 mm[Hg] Ximena John MD Work Phone: [facility] 08-03-2021 12:49-0400 Respiratory rate 12 /min Cristian Ely MD Work Phone: [facility] 08-03-2021 11:28-0400 Body temperature 97.81 [degF] Cristian Ely MD Work Phone: [facility] 08-03-2021 11:28-0400 Diastolic blood pressure 83 mm[Hg] Cristian Ely MD Work Phone: [facility] 08-03-2021 11:28-0400 Heart rate 74 /min Cristian Ely MD Work Phone: [facility] 08-03-2021 11:28-0400 SaO2% (BldA) [Mass fraction] 98 % Cristian Ely MD Work Phone: [facility] 08-03-2021 11:28-0400 Systolic blood pressure 138 mm[Hg] Cristian Ely MD Work Phone: [facility] 08-02-2021 00:34-0400 Body height 160 cm Cristian Ely MD Work Phone: [facility] 08-02-2021 00:34-0400 Body mass index (BMI) [Ratio] 27.1 kg/m2 Cristian Ely MD Work Phone: [facility] 08-02-2021 00:34-0400 Body weight 69.4 kg Cristian Ely MD Work Phone: [facility] 12-17-2018 11:05-0400 BMI (Body Mass Index) 27.81 kg/m2 [facility] [employer] 12-17-2018 11:05-0400 Body Temperature 102.31 [degF] [facility] 12-17-2018 11:05-0400 Body weight 71.22 kg [facility] [employer] 12-17-2018 11:05-0400 BP Diastolic 65 mm[Hg] [facility] [employer] 12-17-2018 11:05-0400 BP Systolic 117 mm[Hg] [facility] 12-17-2018 11:05-0400 Height 160 cm [facility] [employer] 12-17-2018 11:05-0400 Pulse (Heart Rate) 105 /min [facility] 12-17-2018 11:05-0400 Pulse Oximetry 100 % [facility] 12-17-2018 11:05-0400 Respiratory Rate 16 /min [facility] 08-10-2012 09:38-0500 Pulse (Heart Rate) 74 /min Zen Hansen MD [facility] Work Phone: 08-10-2012 09:38-0500 Weight 57.15 kg Zen Hansen MD [facility] Work Phone: 07-27-2012 12:18-0400 BP Diastolic 74 mm[Hg] Zen Hansen MD [facility] Work Phone: 07-27-2012 12:18-0400 BP Systolic 136 mm[Hg] Zen Hansen MD [facility] Work Phone: 07-13-2012 09:39-0400 Height 160.02 cm Zen Hansen MD [facility] Work Phone: NEGATED: Highlighted [id number] 10:01-0500 Body height 160.02 cm Anai Kunz [facility] Work Phone: NEGATED: Highlighted [id number] 10:01-0500 Body height 160 cm Anai Kunz [facility] Work Phone: NEGATED: Highlighted [id number] 10:01-0500 Body mass index (BMI) [Ratio] 26.67 kg/m2 Anai Kunz [facility] Work Phone: NEGATED: Highlighted [id number] 10:01-0500 Body weight 68.04 kg Anai Kunz [facility] Work Phone: NEGATED: Highlighted [id number] 10:01-0500 Body weight 68 kg Anai Kunz [employer] [facility] Work Phone: Encounters Encounter Date Encounter Type Care Provider Facility Start: 06-15-2025 [facility]ulatory [facility] Start: 06-15-2025 End: 06-15-2025 Office outpatient visit 25 minutes Rudy Aburto MD Work Phone: [facility] Nephrology Comment on above: Stage 3b chronic kid sherine disease (Primary Dx) Start: 06-13-2025 ambulatory REHANA HERNANDEZ [facility] Start: 03-23-2025 ambulatory REHANA HERNANDEZ [facility] Start: 03-23-2025 End: 03-23-2025 Office outpatient visit 25 minutes Rudy Aburto MD Work Phone: [facility] Nephrology 2 Comment on above: Stage 3b chronic kid sherine disease (Primary Dx) Start: 03-21-2025 ambulatory [facility] Start: 02-23-2025 End: 02-23-2025 Transcribe Orders Katerine Grant DPM Work Phone: [facility] Comment on above: Hallux rigidus of ri ght foot (Primary Dx) Start: 02-14-2025 ambulatory [facility] Start: 01-19-2025 End: 01-19-[address] Rehana Hernandez MD Work Phone: [facility] Work Phone: Start: 01-19-2025 End: 01-19-[address] Rehana Hernandez MD -Outpatient Breast Imaging Work Phone: Start: 01-19-2025 End: 01-19-2025 ambulatory eRhana Hernandez Facility:[facility] Start: 12-27-2024 End: 12-27-2024 ambulatory Chair Junior CHINCHILLA Work Phone: [facility] Comment on above: Dental caries (Prima ry Dx); Dental plaque Start: 12-27-2024 End: 12-27-2024 Chart abstracting Chair 2 Lizbeth Pacheco DDS Work Phone: [facility] Start: 12-22-2024 ambulatory [facility] Start: 12-14-2024 ambulatory RUDY ABURTO [facility] Start: 11-26-2024 End: 11-26-[address] Rehana Hernandez MD -Radiology, [place] Work Phone: Start: 11-26-2024 End: 11-26-2024 ambulatory Rehana Hernandez Facility:[facility] Start: 11-15-2024 ambulatory [facility] Start: 11-04-2024 End: 11-04-2024 Postop follow up visit related to original px Justin [facility] [employer] Work Phone: [facility] Orthopedics Comment on above: S/P left knee arthro scopy (Primary Dx) Start: 11-04-2024 ambulatory RHEANA HERNANDEZ [facility] Start: 11-03-2024 ambulatory [facility] Start: 10-21-2024 End: 10-21-2024 ambulatory TOM CROSS [facility] Start: 10-21-2024 End: 10-21-2024 Subsequent hospital visit by physician Tom Cross MD Work Phone: [facility] Periop Comment on above: Tear of medial menis cus of left knee, current, unspecified tear type, initial encounter Start: 09-24-2024 ambulatory TOM Dickinson [facility] Start: 09-24-2024 Encounter for other preprocedural examination TOM CROSS [facility] Start: 09-24-2024 ambulatory TOM CROSS [facility] Start: 09-20-2024 End: 09-20-2024 Office outpatient new 45 minutes Tom Cross MD Work Phone: [facility] Orthopedics Comment on above: Other tear of medial meniscus of left knee as current injury, initial encounter (Primary Dx); Other tear of lateral meniscus of left knee as current injury, initial encounter; Primary osteoarthritis of left knee Start: 09-20-2024 ambulatory DEBRA MAX [facility] Start: 09-16-2024 End: 09-16-2024 Office outpatient visit 25 minutes Rudy Aburto MD Work Phone: [facility] Nephrology 2 Comment on above: Stage 3b chronic kid sherine disease (Primary Dx) Start: 09-16-2024 ambulatory [facility] Start: 09-13-2024 ambulatory [facility] Start: 07-26-2024 End: 07-26-2024 Office outpatient visit 25 minutes Debra L Riehm DO Work Phone: [facility] Comment on above: Primary osteoarthrit is of left knee (Primary Dx); Chronic pain of left knee; Other tear of meniscus of left knee, unspecified meniscus, unspecified whether old or current tear, subsequent encounter Start: 07-26-2024 ambulatory DEBRA MAX [facility] Start: 07-02-2024 End: 07-02-2024 Emergency department patient visit Lizbeth Up MD Work Phone: [facility] Emergency Department Start: 06-28-2024 End: 06-28-2024 Office outpatient visit 25 minutes Debra L Riehm DO Work Phone: [facility] Comment on above: Chronic pain of left knee (Primary Dx); Primary osteoarthritis of left knee Start: 06-28-2024 ambulatory DEBRA RIVERAM [facility] Start: 06-24-2024 ambulatory [facility] Start: 06-24-2024 End: 06-24-2024 Office outpatient visit 25 minutes Rudy Aburto MD Work Phone: [facility] Nephrology 2 Comment on above: Stage 3b chronic kid sherine disease (Primary Dx) Start: 06-22-2024 ambulatory REHANA HERNANDEZ [facility] Start: 03-26-2024 End: 03-26-2024 Office outpatient visit 15 minutes Debra L Riehm DO Work Phone: [facility] Orthopedic Comment on above: Chronic pain of left knee (Primary Dx) Start: 03-24-2024 End: 03-24-2024 Office outpatient visit 25 minutes Rduy Aburto MD Work Phone: [facility] Nephrology 2 Comment on above: Stage 3b chronic kid sherine disease (Primary Dx) Start: 03-05-2024 End: 03-05-2024 Office outpatient visit 25 minutes Debra Max DO Work Phone: [facility] Orthopedics Comment on above: Left knee pain, unsp ecified chronicity (Primary Dx) Start: 02-03-2024 End: 02-03-2024 Subsequent hospital visit by physician Debra Max DO Work Phone: [facility] MRI Comment on above: Arrived Start: 01-19-2024 End: 01-19-[address] Rehana Hernandez Work Phone: [facility] Work Phone: Start: 01-19-2024 End: 01-19-[address] Rehana Hernandez Work Phone: [facility]-Outpatient Breast Imaging Work Phone: Start: 01-13-2024 End: 01-13-2024 Office outpatient visit 25 minutes Debra Max DO Work Phone: [facility] Orthopedics Comment on above: Left knee pain, unsp ecified chronicity (Primary Dx); Low back pain, unspecified back pain laterality, unspecified chronicity, unspecified whether sciatica present Start: 12-24-2023 End: 12-24-2023 Office outpatient visit 25 minutes Rudy Aburto MD Work Phone: [facility] Nephrology 2 Comment on above: Stage 3b chronic kid sherine disease (Primary Dx) Start: 10-23-2023 End: 10-23-2023 Subsequent hospital visit by physician Rudy Aburto MD Work Phone: [facility] Bone Density Comment on above: Arrived Start: 10-21-2023 Non-patient / Non-visit Dr. Anamika Hernandez Work Phone: [facility] Start: 10-21-2023 End: 10-21-2023 Admission to same day surgery center Dr. Rehana Hernandez Work Phone: [facility]-Endoscopy Work Phone: Start: 10-21-2023 End: 10-21-[address] Rehana Hernandez Work Phone: [facility] Work Phone: Start: 09-21-2023 End: 09-21-2023 Office outpatient visit 15 minutes Jarod Sarmiento [employer] Work Phone: [facility] Comment on above: Acute non-recurrent maxillary sinusitis (Primary Dx); Acute cough Start: 09-10-2023 End: 09-10-2023 Office outpatient visit 25 minutes Debra Max DO Work Phone: [facility] Sports Medicine Comment on above: Chronic pain of left knee (Primary Dx) Start: 08-27-2023 End: 08-27-[address] Rehana Hernandez Work Phone: [facility] Work Phone: Start: 08-12-2023 Non-patient / Non-visit Dr. Anamika Hernandez Work Phone: [facility] Work Phone: Start: 08-12-2023 Non-patient / Non-visit Dr. Anamika Hernandez Work Phone: [facility] Start: 08-11-2023 Non-patient / Non-visit Dr. Anamika Hernandez Work Phone: [facility] Work Phone: Start: 08-10-2023 Non-patient / Non-visit Dr. Anamika Hernandez Work Phone: [facility] Start: 08-09-2023 Non-patient / Non-visit Dr. Anamika Hernandez Work Phone: [facility] Start: 08-09-2023 Non-patient / Non-visit Dr. Anamika Hernandez Work Phone: [facility] Work Phone: Start: 08-08-2023 Non-patient / Non-visit Dr. Anamika Hernandez Work Phone: [facility] Start: 08-08-2023 Non-patient / Non-visit Dr. Anamika Hernandez Work Phone: [facility] Work Phone: Start: 08-07-2023 Non-patient / Non-visit Dr. Anamika Hernandez Work Phone: [facility] Work Phone: Start: 08-07-2023 End: 08-12-2023 Evaluation and management of inpatient Dr. Rehana Hernandez Work Phone: [facility] Work Phone: Start: 07-11-2023 End: 07-11-2023 Emergency department patient visit eZn Alexander MD Work Phone: [facility] Emergency Department Start: 07-09-2023 End: 07-09-2023 Office outpatient visit 25 minutes Rudy Aburto MD Work Phone: [facility] Nephrology 2 Comment on above: Stage 3b chronic kid sherine disease (Primary Dx) Start: 05-15-2023 End: 05-15-2023 Emergency department patient visit Teja Beth MD Work Phone: [facility] Emergency Department Start: 04-17-2023 End: 04-17-2023 Office outpatient visit 25 minutes Rudy Aburto MD Work Phone: [facility] Nephrology 2 Comment on above: Stage 3a chronic kid sherine disease (Primary Dx) Start: 02-12-2023 End: 02-12-2023 Office outpatient visit 25 minutes Rudy Aburto MD Work Phone: [facility] Nephrology 2 Comment on above: Stage 3b chronic kid sherine disease (Primary Dx) Start: 02-07-2023 End: 02-07-2023 Office outpatient new 45 minutes Debra Max DO Work Phone: [facility] Orthopedics Comment on above: Left knee pain, unsp ecified chronicity (Primary Dx) Start: 02-07-2023 End: 02-07-2023 Subsequent hospital visit by physician Debra Max DO Work Phone: [facility] Rad[facility] Start: 01-16-2023 End: 01-16-2023 Emergency department patient visit Rehana Hernandez MD Work Phone: [facility] Emergency Department Start: 11-29-2022 End: 11-29-2022 Office outpatient new 30 minutes Markie Donald EDWARD Work Phone: [facility] Urology Comment on above: Hydronephrosis, unsp ecified hydronephrosis type (Primary Dx); Urinary frequency; Hematuria, unspecified type Start: 11-20-2022 End: 11-20-2022 Subsequent hospital visit by physician Rudy Aburto MD Work Phone: [facility] CT Scan Comment on above: Arrived Start: 11-03-2022 End: 11-03-2022 Subsequent hospital visit by physician Rudy Aburto MD Work Phone: [facility] Ultrasound Comment on above: Arrived Start: 10-24-2022 End: 10-24-2022 Office outpatient new 45 minutes Rudy Aburto MD Work Phone: [facility] Nephrology 2 Comment on above: Stage 3b chronic kid sherine disease (Primary Dx) Start: 09-09-2022 End: 09-09-2022 Emergency department patient visit Rehana Hernandez MD Work Phone: [facility] Emergency Department Start: 09-04-2022 End: 09-04-2022 ambulatory [facility] Work Phone: Start: 09-04-2022 End: 09-04-2022 Patient encounter procedure [facility] Start: 07-24-2022 End: 07-24-2022 ambulatory [facility] Work Phone: Start: 07-24-2022 End: 07-24-2022 Patient encounter procedure [facility]Ul[facility]ound, [facility] Start: 07-18-2022 End: 07-18-2022 ambulatory [facility] Work Phone: Start: 07-18-2022 End: 07-18-2022 Patient encounter procedure [facility] Start: 04-20-2022 End: 04-20-2022 Emergency department patient visit Jose Cordero [facility] [place] [id number] Start: 03-21-2022 End: 03-21-2022 Patient encounter procedure [facility], [facility] Start: 02-08-2022 End: 02-12-2022 ambulatory XIMENA [facility] Start: 02-08-2022 End: 02-08-2022 ambulatory Ximena John MD Work Phone: [facility] Comment on above: Ankle fracture, bima lleolar, closed, right, initial encounter (Primary Dx) Start: 01-31-2022 End: 01-31-2022 Emergency department patient visit REHANA JEREMY [facility] Start: 01-29-2022 End: 02-02-2022 ambulatory Ximena John MD Work Phone: [facility] Comment on above: Ankle fracture, bima lleolar, closed, right, initial encounter (Primary Dx) Start: 01-24-2022 End: 01-28-2022 ambulatory XIMENA [facility] Start: 01-22-2022 End: [facility] Start: 01-22-2022 End: 01-22-2022 ambulatory Ximena John MD Work Phone: [facility] Comment on above: Ankle fracture, bima lleolar, closed, right, initial encounter (Primary Dx) Start: 01-15-2022 End: 01-19-2022 [facility] Start: 01-15-2022 End: 01-15-2022 ambulatory Ximena John MD Work Phone: [facility] Comment on above: Ankle fracture, bima lleolar, closed, right, initial encounter (Primary Dx) Start: 01-10-2022 End: 01-14-2022 [facility] Start: 01-04-2022 End: 01-04-2022 Patient encounter procedure [facility]Outpatient Breast Imaging Start: 12-11-2021 Orders Only Keyna bradley CNP Work Phone: [facility] Comment on above: Ankle fracture, bima lleolar, closed, right, initial encounter (Primary Dx) Start: 12-07-2021 End: 12-11-2021 [facility] Start: 12-07-2021 End: 12-07-2021 ambulatory Ximena John MD Work Phone: [facility] Comment on above: Ankle fracture, bima lleolar, closed, right, initial encounter (Primary Dx) Start: 12-06-2021 End: 12-10-2021 [facility] Start: 12-06-2021 End: 12-06-2021 ambulatory Ximena John MD Work Phone: [facility] Comment on above: Ankle fracture, bima lleolar, closed, right, initial encounter (Primary Dx) Start: 11-30-2021 End: 12-04-2021 [facility] Start: 11-30-2021 End: 11-30-2021 ambulatory Ximena John MD Work Phone: [facility] Comment on above: Ankle fracture, bima lleolar, closed, right, initial encounter (Primary Dx) Start: 11-28-2021 ambulatory RASHAD BLANCO [facility] Start: 11-27-2021 End: 12-01-2021 ambulatory [facility] Start: 11-27-2021 End: 11-27-2021 ambulatory Ximena John MD Work Phone: [facility] Comment on above: Ankle fracture, bima lleolar, closed, right, initial encounter (Primary Dx) Start: 11-23-2021 End: 11-27-2021 [facility] Start: 11-23-2021 End: 11-23-2021 ambulatory Ximena John MD Work Phone: [facility] Comment on above: Ankle fracture, bima lleolar, closed, right, initial encounter (Primary Dx) Start: 11-21-2021 End: 11-26-2021 ambulatory Ximena John MD Work Phone: [facility] Comment on above: Ankle fracture, bima lleolar, closed, right, initial encounter (Primary Dx) Start: 11-20-2021 Documentation procedure Radha stoddard LPN [facility] Start: 11-16-2021 Orders Only Kenya bradley [employer] Work Phone: [facility] Orthopedic [facility] Sports Medicine Comment on above: Ankle fracture, bima lleolar, closed, right, initial encounter (Primary Dx) Start: 11-15-2021 End: 11-19-2021 [facility] Start: 11-15-2021 End: 11-15-2021 ambulatory Ximena John MD Work Phone: [facility] Comment on above: Ankle fracture, bima lleolar, closed, right, initial encounter (Primary Dx) Start: 11-13-2021 End: 11-17-2021 ambulatory [facility] Start: 11-13-2021 End: 11-13-2021 ambulatory Ximena John MD Work Phone: [facility] Comment on above: Ankle fracture, bima lleolar, closed, right, initial encounter (Primary Dx) Start: 11-06-2021 End: 11-10-2021 ambulatory [facility] Start: 11-06-2021 End: 11-06-2021 ambulatory Ximena John MD Work Phone: [facility] Comment on above: Ankle fracture, bima lleolar, closed, right, initial encounter (Primary Dx) Start: 11-01-2021 End: 11-05-2021 ambulatory [facility] Start: 11-01-2021 End: 11-01-2021 ambulatory Ximena John MD Work Phone: [facility] Comment on above: Ankle fracture, bima lleolar, closed, right, initial encounter (Primary Dx) Start: 10-30-2021 End: 11-03-2021 [facility] Start: 10-26-2021 End: 10-30-2021 [facility] Start: 10-26-2021 End: 10-26-2021 ambulatory Ximena John MD Work Phone: [facility] Comment on above: Ankle fracture, bima lleolar, closed, right, initial encounter (Primary Dx) Start: 10-23-2021 End: 10-27-2021 [facility] Start: 10-18-2021 End: 10-22-2021 [facility] Start: 10-18-2021 End: 10-18-2021 ambulatory Ximena John MD Work Phone: [facility] Comment on above: Ankle fracture, bima lleolar, closed, right, initial encounter (Primary Dx) Start: 10-17-2021 End: 10-18-2021 ambulatory KENYA DAVILA [facility] Start: 10-17-2021 End: 10-17-2021 Office outpatient visit 10 minutes Kenya Davila [facility] Work Phone: [facility] Sports Medicine Comment on above: Ankle fracture, bima lleolar, closed, right, initial encounter (Primary Dx) Start: 10-16-2021 End: 10-20-2021 ambulatory XIMENA [facility] Start: 10-01-2021 End: 10-01-2021 Emergency department patient visit Jose Cordero [facility] [place] [id number] Start: 09-25-2021 End: 09-29-2021 ambulatory XIMENA VASQUEZ [facility] Start: 09-20-2021 End: 09-24-2021 ambulatory XIMENA [facility] Start: 09-20-2021 End: 09-20-2021 ambulatory Ximena John MD Work Phone: [facility] Comment on above: Ankle fracture, bima lleolar, closed, right, initial encounter (Primary Dx) Start: 09-18-2021 End: 09-22-2021 [facility] Start: 09-18-2021 End: 09-18-2021 ambulatory Ximena John MD Work Phone: [facility] Comment on above: Ankle fracture, bima lleolar, closed, right, initial encounter Start: 09-11-2021 End: 09-12-2021 Orders Only Ximena John MD Work Phone: [facility] Sports Medicine Comment on above: Ankle fracture, bima lleolar, closed, right, initial encounter (Primary Dx) Start: 09-11-2021 End: 09-11-2021 Postop follow up visit related to original px Ximena John MD Work Phone: [facility] Medicine Comment on above: Ankle fracture, bima lleolar, closed, right, initial encounter (Primary Dx) Start: 09-06-2021 Orders Only Ximena gillespie MD Work Phone: [facility] Comment on above: Ankle fracture, bima lleolar, closed, right, initial encounter (Primary Dx) Start: 08-20-2021 ambulatory XIMENA JOHN [facility] Start: 08-15-2021 Orders Only Ximena gillespie MD Work Phone: [facility] Comment on above: Ankle fracture, bima lleolar, closed, right, initial encounter (Primary Dx) Start: 08-14-2021 End: 08-15-2021 ambulatory XIMENA JOHN [facility] Start: 08-14-2021 End: 08-14-2021 Postop follow up visit related to original px Ximena John MD Work Phone: [facility] Medicine Comment on above: Ankle fracture, bima lleolar, closed, right, initial encounter (Primary Dx) Start: 08-09-2021 Orders Only Ximena gillespie MD Work Phone: [facility] Comment on above: Acute right ankle pa in (Primary Dx) Ankle fracture, bima lleolar, closed, right, initial encounter (Primary Dx) Start: 08-08-2021 Orders Only Ximena gillespie MD Work Phone: [facility] Comment on above: Pain (Primary Dx) Ankle fracture, bima lleolar, closed, right, initial encounter (Primary Dx) Start: 07-31-2021 End: 08-03-2021 Evaluation and management of inpatient [facility] Start: 07-31-2021 End: 08-03-2021 Evaluation and management of inpatient Cristian Ely MD Work Phone: [facility] Start: 12-17-2018 End: 12-17-2018 Office outpatient visit 15 minutes Yelena Sahni Work Phone: [facility] Comment on above: Influenza A (Primary Dx); Flu-like symptoms; Referral of patient Start: 06-17-2017 Ambulatory Vera Bean cility:[place] Start: 06-17-2017 End: 06-17-2017 Ambulatory Nina Morales Work Phone: [facility] Procedures Date Procedure Procedure Detail Performing Clinician Start: 01-19-2025 Screening mammography Janet Hernandez MD Work Phone: Start: 02-21-2025 X-ray of foot, three or more views Dr. Rehaan Hernandez MD Work Phone: Start: 07-02-2024 Ct head/brain w/o co ntrast material Lizbeth Up MD Work Phone: Start: 07-02-2024 Radex shoulder compl ete minimum 2 views Lizbeth Up MD Work Phone: Start: 06-28-2024 Arthrocentesis aspir &/inj major jt/bursa w/o us Debra L Riehm DO Work Phone: Start: 03-05-2024 Arthrocentesis aspir &/inj major jt/bursa w/o us Debra L Riehm DO Work Phone: Start: 02-03-2024 Mri any jt lower ext rem w/o contrast matrl Debra L Riehm DO Work Phone: Start: 01-19-2024 Screening mammography D sánchez Hernandez Work Phone: Start: 10-23-2023 Dxa bone density lubna dy 1/> sites axial abdirahman Aburto MD Work Phone: Start: 10-21-[address] Rehana paula Work Phone: Start: 08-10-2023 Computed tomography of abdomen and pelvis with contrast Dr. Rehana Hernandez Work Phone: Start: 08-07-2023 Computed tomography of abdomen and pelvis with intravenous contrast Dr. Rehana Hernandez Work Phone: Start: 07-11-2023 Radex fingr minimum 2 views Zen Alexander MD Work Phone: Start: 01-16-2023 Urinalysis microscop ic only Tomeka Pascal PA-C Work Phone: Start: 01-16-2023 Urinalysis, reagent strip without microscopy Tomeka Pascal PA-C Work Phone: Start: 01-16-2023 Radiologic exam ches t single view Tomeka Pascal PA-C Work Phone: Start: 01-16-2023 Albumin serum plasma /whole blood Tomeka VENCES-C Work Phone: Start: 01-16-2023 Complete blood count with white cell differential, automated Tomeka Pascal PA-C Work Phone: Start: 01-16-2023 Dup-scan xtr veins unilateral/limited study Tomeka VENCES-[place] Work Phone: Start: 11-29-2022 Urinalysis microscop ic only Markie Bennett [employer] Work Phone: Start: 11-29-2022 Urnls dip stick/tabl et rgnt auto w/o microscopy Markie Bennett [employer] Work Phone: Start: 11-03-2022 Us retroperitoneal r eal time w/image complete Rudy Aburto MD Work Phone: Start: 09-09-2022 Dup-scan xtr veins unilateral/limited study Manny Sutton Helen VENCES-[employer] Work Phone: Start: 09-09-2022 Comprehensive metabo lic panel Manny VENCES-[employer] Work Phone: Start: 07-24-2022 US urinary tract Start: 01-03-2022 Screening mammography Start: 12-12-2021 End: 12-12-2021 BP scrn no [...] Basic metabolic pane l calcium total Yane Powers [employer] Work Phone: Start: 08-02-2021 Basic metabolic pane l calcium total Vanessa [place] Qiana [employer] Work Phone: Start: 08-01-2021 Radiologic examinati on ankle 2 views Ximena John MD Work Phone: Start: 08-01-2021 End: 08-01-2021 OPEN REDUCTION INTERNAL FIXATION ANKLE FRACTURE Ximean John MD Work Phone: Start: 08-01-2021 Comprehensive metabo lic panel Rogelio Shaw MD Work Phone: Start: 07-31-2021 Application of splint L miguel Bennett PA-C Work Phone: Start: 07-31-2021 SARS-CoV-2 (COVID-19 ) RdRp gene [Presence] in Respiratory specimen by YUNG with probe detection Kiarra Bennett PA-C Work Phone: Start: 07-31-2021 Blood count complete auto&auto difrntl wbc Kiarra Bennett PA-C Work Phone: Start: 07-31-2021 Ct lower extremity w /o contrast material Kiarra Bennett PA-C Work Phone: Start: 07-31-2021 End: 07-31-2021 Radex ankle complete minimum 3 views Kiarra VENCES-C Work Phone: Start: 12-17-2018 Iaadiadoo influenza Hol li B Bora Work Phone: NEGATED: Highlighted rowStart: 12-12-2021 End: 12-12-2021 Documentation of current medications Anai Kunz LPN Plan of Treatment Date Care Activity Detail Author Start: 12-29-2038 Respiratory Syncytial Virus Immunization: Risk, 60-74 Risk, or 75+ (1 - 1-dose 75+ series) Respiratory Syncytial Virus Immunization: Risk, 60-74 Risk, or 75+ (1 - 1-dose 75+ series) [facility] Start: 12-27-2025 Hypertension screening Hypertension Screening (#1) [facility] Start: 09-06-2025 End: 09-06-2025 Patient encounter procedure 09/06/2025 10:15 AM EST Office Visit [facility] Nephrology [address] [place] [address] Rudy Aburto MD [address] [place] [address] [facility] Start: 06-15-2025 End: 06-15-2026 Complete blood count with white cell differential, automated CBC, EDIF, PLATELET Lab Routine Stage 3b chronic kidney disease Expected: 06/15/2025, Expires: 06/15/2026 [facility] Comment on above: Expected: 06/15/2025, Expires: Start: 06-15-2025 End: 06-15-2026 Magnesium [Mass/volume] in Serum or Plasma MAGNESIUM Lab Routine Stage 3b chronic kidney disease Expected: 06/15/2025, Expires: 06/15/2026 [facility] Comment on above: Expected: 06/15/2025, Expires: Start: 06-15-2025 End: 06-15-2026 MICROALBUMIN/CREATININE RATIO MICROALBUMIN/CREATININE RATIO Fluids Routine Stage 3b chronic kidney disease Expected: 06/15/2025, Expires: 06/15/2026 [facility] Comment on above: Expected: 06/15/2025, Expires: Start: 06-15-2025 End: 06-15-2026 RENAL FUNCTION PANEL RENAL FUNCTION PANEL Lab Routine Stage 3b chronic kidney disease Expected: 06/15/2025, Expires: 06/15/2026 [facility] Comment on above: Expected: 06/15/2025, Expires: Start: 06-15-2025 End: 06-15-2026 Sodium [Moles/volume] in Urine SODIUM, RANDOM URINE Fluids Routine Stage 3b chronic kidney disease Expected: 06/15/2025, Expires: 06/15/2026 [facility] Comment on above: Expected: 06/15/2025, Expires: Start: 06-15-2025 End: 06-15-2026 Urinalysis, reagent strip without microscopy URINALYSIS, MACRO Fluids Routine Stage 3b chronic kidney disease Expected: 06/15/2025, Expires: 06/15/2026 [facility] Comment on above: Expected: 06/15/2025, Expires: Start: 06-15-2025 End: 06-15-2026 URINE PROTEIN/CREA RATIO, RANDOM URINE PROTEIN/CREA RATIO, RANDOM Fluids Routine Stage 3b chronic kidney disease Expected: 06/15/2025, Expires: 06/15/2026 [facility] Comment on above: Expected: 06/15/2025, Expires: Start: 06-15-2025 End: 06-15-2025 Patient encounter procedure 06/15/2025 10:15 AM EDT Office Visit [facility] Nephrology 2 [address] [place] [address] Rudy Aburto MD [address] [place] [address] [facility]ph[facility] 2 Start: 06-06-2025 COVID-19 VACCINE ( season) COVID-19 VACCINE ( season) [facility] Start: 06-06-2025 Influenza vaccination [facility] Start: 03-23-2025 End: 03-23-2026 Complete blood count with white cell differential, automated CBC, EDIF, PLATELET Lab Routine Stage 3b chronic kidney disease Expected: 03/23/2025, Expires: 03/23/2026 [facility] Comment on above: Expected: 03/23/2025, Expires: Start: 03-23-2025 End: 03-23-2026 Magnesium [Mass/volume] in Serum or Plasma MAGNESIUM Lab Routine Stage 3b chronic kidney disease Expected: 03/23/2025, Expires: 03/23/2026 [facility] Comment on above: Expected: 03/23/2025, Expires: Start: 03-23-2025 End: 03-23-2026 MICROALBUMIN/CREATININE RATIO MICROALBUMIN/CREATININE RATIO Fluids Routine Stage 3b chronic kidney disease Expected: 03/23/2025, Expires: 03/23/2026 [facility] Comment on above: Expected: 03/23/2025, Expires: Start: 03-23-2025 End: 03-23-2026 RENAL FUNCTION PANEL RENAL FUNCTION PANEL Lab Routine Stage 3b chronic kidney disease Expected: 03/23/2025, Expires: 03/23/2026 [facility] Comment on above: Expected: 03/23/2025, Expires: Start: 03-23-2025 End: 03-23-2026 Sodium [Moles/volume] in Urine SODIUM, RANDOM URINE Fluids Routine Stage 3b chronic kidney disease Expected: 03/23/2025, Expires: 03/23/2026 [facility] Comment on above: Expected: 03/23/2025, Expires: Start: 03-23-2025 End: 03-23-2026 Urinalysis, reagent strip without microscopy URINALYSIS, MACRO Fluids Routine Stage 3b chronic kidney disease Expected: 03/23/2025, Expires: 03/23/2026 [facility] Comment on above: Expected: 03/23/2025, Expires: Start: 03-23-2025 End: 03-23-2026 URINE PROTEIN/CREA RATIO, RANDOM URINE PROTEIN/CREA RATIO, RANDOM Fluids Routine Stage 3b chronic kidney disease Expected: 03/23/2025, Expires: 03/23/2026 [facility] Comment on above: Expected: 03/23/2025, Expires: Start: 12-22-2024 End: 12-22-2024 Patient encounter procedure 12/22/2024 10:45 AM EDT Office Visit [facility] Nephrology 2 [address] [place] [address] Rudy Aburto MD [address] [place] [address] [facility]ph[facility] 2 Start: 12-16-2024 End: 12-16-2024 Patient encounter procedure 12/16/2024 10:00 AM EDT Office Visit [facility] Orthopedics [address] [facility] [place] [address] Justin Csatillo, SOLAR F[employer]ICATION TECHNICIAN[employer] [address] [facility] [place] [address] [facility] Start: 11-11-2024 End: 11-11-2024 ambulatory 11/11/2024 1:20 PM EST Rehab Services Visit [email or web address] [place] [address] Justin Castillo, SOLAR FABRICATION TECHNICIAN[employer] [address] [place] [address] Rissa Nougeira PTA [address] [place] [address] [facility] [place] Start: 11-08-2024 End: 11-08-2024 ambulatory 11/08/2024 12:40 PM EST Rehab Services Visit [facility] [address] [place] [address] Justin Castillo, SOLAR F[employer]RICATION TECHNICIAN[employer] [address] [place] [address] Rissa Nogueira PTA [address] [place] [address] [facility] [place] Start: 11-04-2024 End: 11-04-2024 Patient encounter procedure 11/04/2024 9:15 AM EST Office Visit [facility] Orthopedics [address] [place] [address] Justin Castillo APRN-[employer] [address] [place] [address] [facility] Start: 10-21-2024 End: 10-21-2024 Admission to same day surgery center 10/21/2024 7:30 AM EST - 10/21/2024 8:30 AM EST Surgery [facility] Periop [address] [place] [address] Tom Cross MD [address] [place] [address] ARTHROSCOPY KNEE W/ MENISCECTOMY [facility] Comment on above: ARTHROSCOPY KNEE W/ MENISCECTOMY Start: 10-21-2024 End: 10-21-2024 Arthrs knee w/meniscectomy med&lat w/shaving [facility] Start: 10-21-2024 Subsequent hospital visit by physician 10/21/2024 7:30 AM EST Hospital Encounter [facility] [address] [place] [address] Tom Cross MD [address] [place] [address] Tear of medial meniscus of left knee, current, unspecified tear type, initial encounter [facility] Comment on above: Tear of medial meniscus of left knee, cu rrent, unspecified tear type, initial encounter Start: 10-06-2024 Depression screening Depression Annual Screen [facility] Start: 10-06-2024 Screening for substance abuse Alcohol and Drug Screen [facility] Start: 09-24-2024 End: 09-24-2024 Admission to establishment 09/24/2024 9:30 AM EST Pre-Operative Nurse Assessment [facility] Pre Admission [address] [place] [address] Preop testing (Primary Dx) [facility] Pre Admission Comment on above: Preop testing (Primary Dx) Start: 09-20-2024 End: 09-20-2024 Patient encounter procedure 09/20/2024 11:00 AM EST Office Visit [facility] Orthopedics [address] [facility] [place] [address] Tom Cross MD [address] [facility] [place] [address] [facility] Start: 09-16-2024 End: 09-16-2024 Patient encounter procedure 09/16/2024 3:30 PM EST Office Visit [facility] Nephrology 2 [address] [facility] [place] [address] Rudy Aburto MD [address] [place] [address], [place] [address] [facility] Nephrology 2 Start: 09-16-2024 End: 09-16-2025 Complete blood count with white cell differential, automated CBC, EDIF, PLATELET Lab Routine Stage 3b chronic kidney disease Expected: 09/16/2024, Expires: 09/16/2025 [facility] Comment on above: Expected: 09/16/2024, Expires: Start: 09-16-2024 End: 09-16-2025 Magnesium [Mass/volume] in Serum or Plasma MAGNESIUM Lab Routine Stage 3b chronic kidney disease Expected: 09/16/2024, Expires: 09/16/2025 [facility] Comment on above: Expected: 09/16/2024, Expires: 5 Start: 09-16-2024 End: 09-16-2025 MICROALBUMIN/CREATININE RATIO MICROALBUMIN/CREATININE RATIO Fluids Routine Stage 3b chronic kidney disease Expected: 09/16/2024, Expires: 09/16/2025 [facility] Comment on above: Expected: 09/16/2024, Expires: Start: 09-16-2024 End: 09-16-2025 RENAL FUNCTION PANEL RENAL FUNCTION PANEL Lab Routine Stage 3b chronic kidney disease Expected: 09/16/2024, Expires: 09/16/2025 [facility] Comment on above: Expected: 09/16/2024, Expires: Start: 09-16-2024 End: 09-16-2025 Sodium [Moles/volume] in Urine SODIUM, RANDOM URINE Fluids Routine Stage 3b chronic kidney disease Expected: 09/16/2024, Expires: 09/16/2025 [facility] Comment on above: Expected: 09/16/2024, Expires: Start: 09-16-2024 End: 09-16-2025 Urinalysis, reagent strip without microscopy URINALYSIS, MACRO Fluids Routine Stage 3b chronic kidney disease Expected: 09/16/2024, Expires: 09/16/2025 [facility] Comment on above: Expected: 09/16/2024, Expires: Start: 09-16-2024 End: 09-16-2025 URINE PROTEIN/CREA RATIO, RANDOM URINE PROTEIN/CREA RATIO, RANDOM Fluids Routine Stage 3b chronic kidney disease Expected: 09/16/2024, Expires: 09/16/2025 [facility] Comment on above: Expected: 09/16/2024, Expires: Start: 07-26-2024 End: 07-26-2024 Patient encounter procedure 07/26/2024 10:45 AM EDT Office Visit [facility] Orthopedics [address] [place] [address] Debra Max DO [address] [place] [address] [facility] Start: 06-28-2024 End: 06-28-2024 Patient encounter procedure [facility] Start: 06-24-2024 End: 06-24-2024 Patient encounter procedure 06/24/2024 2:45 PM EDT Office Visit [facility] Nephrology [address] [place] [address] Rudy Aburto MD [address] [place] [address] [facility] Nephrology 2 Start: 06-24-2024 End: 06-24-2025 Complete blood count with white cell differential, automated CBC, EDIF, PLATELET Lab Routine Stage 3b chronic kidney disease Expected: 06/24/2024, Expires: 06/24/2025 [facility] Comment on above: Expected: 06/24/2024, Expires: Start: 06-24-2024 End: 06-24-2025 Magnesium [Mass/volume] in Serum or Plasma MAGNESIUM Lab Routine Stage 3b chronic kidney disease Expected: 06/24/2024, Expires: 06/24/2025 [facility] Comment on above: Expected: 06/24/2024, Expires: Start: 06-24-2024 End: 06-24-2025 MICROALBUMIN/CREATININE RATIO MICROALBUMIN/CREATININE RATIO Fluids Routine Stage 3b chronic kidney disease Expected: 06/24/2024, Expires: 06/24/2025 [facility] Comment on above: Expected: 06/24/2024, Expires: Start: 06-24-2024 End: 06-24-2025 RENAL FUNCTION PANEL RENAL FUNCTION PANEL Lab Routine Stage 3b chronic kidney disease Expected: 06/24/2024, Expires: 06/24/2025 [facility] Comment on above: Expected: 06/24/2024, Expires: Start: 06-24-2024 End: 06-24-2025 Sodium [Moles/volume] in Urine SODIUM, RANDOM URINE Fluids Routine Stage 3b chronic kidney disease Expected: 06/24/2024, Expires: 06/24/2025 [facility] Comment on above: Expected: 06/24/2024, Expires: Start: 06-24-2024 End: 06-24-2025 Urinalysis, reagent strip without microscopy URINALYSIS, MACRO Fluids Routine Stage 3b chronic kidney disease Expected: 06/24/2024, Expires: 06/24/2025 [facility] Comment on above: Expected: 06/24/2024, Expires: Start: 06-24-2024 End: 06-24-2025 URINE PROTEIN/CREA RATIO, RANDOM URINE PROTEIN/CREA RATIO, RANDOM Fluids Routine Stage 3b chronic kidney disease Expected: 06/24/2024, Expires: 06/24/2025 [facility] Comment on above: Expected: 06/24/2024, Expires: Start: 06-06-2024 COVID-19 VACCINE ( season) COVID-19 VACCINE ( season) [facility] Start: 06-06-2024 COVID-19 VACCINE () COVID-19 VACCINE () [facility] Start: 06-06-2024 [id number] ( season) [id number] () [facility] Start: 06-06-2024 Influenza vaccination [facility] Start: 03-26-2024 End: 03-26-2024 Patient encounter procedure 03/26/2024 11:15 AM EDT Office Visit [facility] Orthopedics [address] [place] [id number] Debra Max, [address] [id number] [facility] Start: 03-24-2024 End: 03-24-2025 Complete blood count with white cell differential, automated CBC, EDIF, PLATELET Lab Routine Stage 3b chronic kidney disease Expected: 03/24/2024, Expires: 03/24/2025 [facility] Comment on above: Expected: 03/24/2024, Expires: Start: 03-24-2024 End: 03-24-2025 Magnesium [Mass/volume] in Serum or Plasma MAGNESIUM Lab Routine Stage 3b chronic kidney disease Expected: 03/24/2024, Expires: 03/24/2025 [facility] Comment on above: Expected: 03/24/2024, Expires: Start: 03-24-2024 End: 03-24-2025 MICROALBUMIN/CREATININE RATIO MICROALBUMIN/CREATININE RATIO Fluids Routine Stage 3b chronic kidney disease Expected: 03/24/2024, Expires: 03/24/2025 [facility] Comment on above: Expected: 03/24/2024, Expires: Start: 03-24-2024 End: 03-24-2025 RENAL FUNCTION PANEL RENAL FUNCTION PANEL Lab Routine Stage 3b chronic kidney disease Expected: 03/24/2024, Expires: 03/24/2025 [facility] Comment on above: Expected: 03/24/2024, Expires: Start: 03-24-2024 End: 03-24-2025 Sodium [Moles/volume] in Urine SODIUM, RANDOM URINE Fluids Routine Stage 3b chronic kidney disease Expected: 03/24/2024, Expires: 03/24/2025 [facility] Comment on above: Expected: 03/24/2024, Expires: Start: 03-24-2024 End: 03-24-2025 Urinalysis, reagent strip without microscopy URINALYSIS, MACRO Fluids Routine Stage 3b chronic kidney disease Expected: 03/24/2024, Expires: 03/24/2025 [facility] Comment on above: Expected: 03/24/2024, Expires: Start: 03-24-2024 End: 03-24-2025 URINE PROTEIN/CREA RATIO, RANDOM URINE PROTEIN/CREA RATIO, RANDOM Fluids Routine Stage 3b chronic kidney disease Expected: 03/24/2024, Expires: 03/24/2025 [facility] Comment on above: Expected: 03/24/2024, Expires: Start: 03-24-2024 End: 03-24-2024 Patient encounter procedure 03/24/2024 1:30 PM EDT Office Visit [facility] Nephrology 2 [address] [place] [address] Rudy Aburto MD [address] [place] [address] [facility] Nephrology 2 Start: 01-13-2024 End: 01-12-2025 MR Knee - left WO contrast MRI KNEE LEFT WITHOUT CONTRAST Imaging Routine Left knee pain, unspecified chronicity Expected: 01/13/2024, Expires: 01/12/2025 [facility] Comment on above: Expected: 01/13/2024, Expires: Start: 2023 RSV VACCINE (1 - 1-dose 60+ series) RSV VACCINE (1 - 1-dose 60+ series) [facility] Start: 2023 RSV VACCINE (1 - Risk 60-74 years 1-dose series) RSV VACCINE (1 - Risk 60-74 years 1-dose series) [facility] Start: 12-24-2023 End: 12-23-2024 Complete blood count with white cell differential, automated CBC, EDIF, PLATELET Lab Routine Stage 3b chronic kidney disease Expected: 12/24/2023, Expires: 12/23/2024 [facility] Comment on above: Expected: 12/24/2023, Expires: Start: 12-24-2023 End: 12-23-2024 Magnesium [Mass/volume] in Serum or Plasma MAGNESIUM Lab Routine Stage 3b chronic kidney disease Expected: 12/24/2023, Expires: 12/23/2024 [facility] Comment on above: Expected: 12/24/2023, Expires: Start: 12-24-2023 End: 12-23-2024 PTH INTACT PTH INTACT Lab Routine Stage 3b chronic kidney disease Expected: 12/24/2023, Expires: 12/23/2024 [facility] Comment on above: Expected: 12/24/2023, Expires: Start: 12-24-2023 End: 12-23-2024 RENAL FUNCTION PANEL RENAL FUNCTION PANEL Lab Routine Stage 3b chronic kidney disease Expected: 12/24/2023, Expires: 12/23/2024 [facility] Comment on above: Expected: 12/24/2023, Expires: Start: 12-24-2023 End: 12-23-2024 Sodium [Moles/volume] in Urine SODIUM, RANDOM URINE Fluids Routine Stage 3b chronic kidney disease Expected: 12/24/2023, Expires: 12/23/2024 [facility] Comment on above: Expected: 12/24/2023, Expires: Start: 12-24-2023 End: 12-23-2024 Urinalysis, reagent strip without microscopy URINALYSIS, MACRO Fluids Routine Stage 3b chronic kidney disease Expected: 12/24/2023, Expires: 12/23/2024 [facility] Comment on above: Expected: 12/24/2023, Expires: 5 Start: 12-24-2023 End: 12-23-2024 URINE PROTEIN/CREA RATIO, RANDOM URINE PROTEIN/CREA RATIO, RANDOM Fluids Routine Stage 3b chronic kidney disease Expected: 12/24/2023, Expires: 12/23/2024 [facility] Comment on above: Expected: 12/24/2023, Expires: 5 Start: 11-28-2023 End: 11-28-2023 Patient encounter procedure [facility] Start: 10-21-2023 Colonoscopy w/biopsy single/multiple COLONOSCOPY AND BIOPSY [facility] Start: 10-21-2023 Patient discharge [facility] Start: 10-15-2023 End: 10-15-2023 Patient encounter procedure 10/15/2023 3:30 PM EST Office Visit [facility] Nephrology 2 [address] [place] [address] Rudy Aburto MD [address] [place] [address] [facility] Nephrology 2 Start: 09-10-2023 End: 09-10-2024 MR Knee - left WO contrast MRI KNEE LEFT WITHOUT CONTRAST Imaging Routine Chronic pain of left knee Expected: 09/10/2023, Expires: 09/10/2024 [facility] Comment on above: Expected: 09/10/2023, Expires: 4 Start: 08-18-2023 Blood chemistry [facility] Start: 08-17-2023 Blood chemistry [facility] Start: 08-16-2023 Blood chemistry [facility] Start: 08-15-2023 Blood chemistry [facility] Start: 08-14-2023 Blood chemistry [facility] Start: 08-13-2023 Blood chemistry [facility] Start: 08-12-2023 Patient discharge [facility] Start: 08-08-2023 [facility] Start: 08-07-2023 Assessment of risk of venous thromboembolism [facility] Start: 08-07-2023 Insertion of catheter into peripheral vein [facility] Start: 08-07-2023 Notification of physician [facility] Start: 08-07-2023 Providing care according to standard [facility] Start: 08-07-2023 Referral to general surgeon [facility] Start: 08-07-2023 [facility] Start: 08-07-2023 Following clinical pathway protocol [facility] Start: 08-07-2023 Verification routine [facility] Start: 08-07-2023 Admission procedure [facility] Start: 08-07-2023 Hospital admission, emergency, from emergency room, medical nature [facility] Start: 08-07-2023 End: 08-08-2023 [facility] Start: 07-09-2023 End: 07-09-2023 Patient encounter procedure 07/09/2023 3:30 PM EDT Office Visit [facility] Nephrology 2 [address] [place] [address] Rudy Aburto MD [address] [place] [address] [facility] Nephrology 2 Start: 07-09-2023 End: 07-09-2024 Complete blood count with white cell differential, automated CBC, EDIF, PLATELET Lab Routine Stage 3b chronic kidney disease Expected: 07/09/2023, Expires: 07/09/2024 [facility] Comment on above: Expected: 07/09/2023, Expires: 4 Start: 07-09-2023 End: 07-09-2024 Magnesium [Mass/volume] in Serum or Plasma MAGNESIUM Lab Routine Stage 3b chronic kidney disease Expected: 07/09/2023, Expires: 07/09/2024 [facility] Comment on above: Expected: 07/09/2023, Expires: 4 Start: 07-09-2023 End: 07-09-2024 RENAL FUNCTION PANEL RENAL FUNCTION PANEL Lab Routine Stage 3b chronic kidney disease Expected: 07/09/2023, Expires: 07/09/2024 [facility] Comment on above: Expected: 07/09/2023, Expires: Start: 07-09-2023 End: 07-09-2024 Sodium [Moles/volume] in Urine SODIUM, RANDOM URINE Fluids Routine Stage 3b chronic kidney disease Expected: 07/09/2023, Expires: 07/09/2024 [facility] Comment on above: Expected: 07/09/2023, Expires: Start: 07-09-2023 End: 07-09-2024 Urinalysis, reagent strip without microscopy URINALYSIS, MACRO Fluids Routine Stage 3b chronic kidney disease Expected: 07/09/2023, Expires: 07/09/2024 [facility] Comment on above: Expected: 07/09/2023, Expires: Start: 07-09-2023 End: 07-09-2024 URINE PROTEIN/CREA RATIO, RANDOM URINE PROTEIN/CREA RATIO, RANDOM Fluids Routine Stage 3b chronic kidney disease Expected: 07/09/2023, Expires: 07/09/2024 [facility] Comment on above: Expected: 07/09/2023, Expires: Start: 06-06-2023 COVID-19 VACCINE ( season) COVID-19 VACCINE ( season) [facility] Start: 06-06-2023 Influenza vaccination [facility] Start: 04-17-2023 End: 04-17-2023 Patient encounter procedure 04/17/2023 Office Visit Nephrology Rudy Aburto MD [address] [place] [address] [facility] Nephrology 2 Start: 04-17-2023 End: 04-17-2024 Complete blood count with white cell differential, automated CBC, EDIF, PLATELET Lab Routine Stage 3a chronic kidney disease Expected: 04/17/2023, Expires: 04/17/2024 [facility] Comment on above: Expected: 04/17/2023, Expires: Start: 04-17-2023 End: 04-17-2024 Magnesium [Mass/volume] in Serum or Plasma MAGNESIUM Lab Routine Stage 3a chronic kidney disease Expected: 04/17/2023, Expires: 04/17/2024 [facility] Comment on above: Expected: 04/17/2023, Expires: 4 Start: 04-17-2023 End: 04-17-2024 RENAL FUNCTION PANEL RENAL FUNCTION PANEL Lab Routine Stage 3a chronic kidney disease Expected: 04/17/2023, Expires: 04/17/2024 [facility] Comment on above: Expected: 04/17/2023, Expires: 4 Start: 04-17-2023 End: 04-17-2024 Sodium [Moles/volume] in Urine SODIUM, RANDOM URINE Fluids Routine Stage 3a chronic kidney disease Expected: 04/17/2023, Expires: 04/17/2024 [facility] Comment on above: Expected: 04/17/2023, Expires: 4 Start: 04-17-2023 End: 04-17-2024 Urinalysis, reagent strip without microscopy URINALYSIS, MACRO Fluids Routine Stage 3a chronic kidney disease Expected: 04/17/2023, Expires: 04/17/2024 [facility] Comment on above: Expected: 04/17/2023, Expires: 4 Start: 04-17-2023 End: 04-17-2024 URINE PROTEIN/CREA RATIO, RANDOM URINE PROTEIN/CREA RATIO, RANDOM Fluids Routine Stage 3a chronic kidney disease Expected: 04/17/2023, Expires: 04/17/2024 [facility] Comment on above: Expected: 04/17/2023, Expires: 4 Start: 03-21-2023 End: 03-21-2023 Patient encounter procedure 03/21/2023 Office Visit Orthopaedics Debra Max, DO [address] [facility] [place] [address] [facility] Start: 02-12-2023 End: 02-12-2023 Patient encounter procedure 02/12/2023 Office Visit Nephrology Rudy Aburto MD [address] [place] [address] [facility] Nephrology 2 Start: 02-12-2023 End: 02-13-2024 Complete blood count with white cell differential, automated CBC, EDIF, PLATELET Lab Routine Stage 3b chronic kidney disease Expected: 02/12/2023, Expires: 02/13/2024 [facility] Comment on above: Expected: 02/12/2023, Expires: 4 Start: 02-12-2023 End: 02-13-2024 Magnesium [Mass/volume] in Serum or Plasma MAGNESIUM Lab Routine Stage 3b chronic kidney disease Expected: 02/12/2023, Expires: 02/13/2024 [facility] Comment on above: Expected: 02/12/2023, Expires: Start: 02-12-2023 End: 02-13-2024 RENAL FUNCTION PANEL RENAL FUNCTION PANEL Lab Routine Stage 3b chronic kidney disease Expected: 02/12/2023, Expires: 02/13/2024 [facility] Comment on above: Expected: 02/12/2023, Expires: 4 Start: 02-12-2023 End: 02-13-2024 Sodium [Moles/volume] in Urine SODIUM, RANDOM URINE Fluids Routine Stage 3b chronic kidney disease Expected: 02/12/2023, Expires: 02/13/2024 [facility] Comment on above: Expected: 02/12/2023, Expires: 4 Start: 02-12-2023 End: 02-13-2024 Urinalysis, reagent strip without microscopy URINALYSIS, MACRO Fluids Routine Stage 3b chronic kidney disease Expected: 02/12/2023, Expires: 02/13/2024 [facility] Comment on above: Expected: 02/12/2023, Expires: Start: 02-12-2023 End: 02-13-2024 URINE PROTEIN/CREA RATIO, RANDOM URINE PROTEIN/CREA RATIO, RANDOM Fluids Routine Stage 3b chronic kidney disease Expected: 02/12/2023, Expires: 02/13/2024 [facility] Comment on above: Expected: 02/12/2023, Expires: 4 Start: 02-07-2023 End: 03-06-2023 XR Knee - left 4 Views [facility] Comment on above: Expected: 02/07/2023, Expires: 3 1 Occurrences starti ng 02/07/2023 until 02/07/2023 Start: 12-04-2022 End: 12-04-2022 Patient encounter procedure 12/04/2022 Office Visit Nephrology Rudy Aburto MD [address] [place] [address] [facility] Start: 11-29-2022 End: 11-29-2022 Patient encounter procedure 11/29/2022 Office Visit Urology Markie Bennett, [employer] [address] [place] [address] [facility] Start: 11-29-2022 End: 11-29-2023 Urinalysis dipstick W Reflex Microscopic panel - Urine [facility] Comment on above: Expected: 11/29/2022, Expires: 4 Start: 11-06-2022 End: 11-06-2022 Patient encounter procedure 11/06/2022 Office Visit Nephrology Rudy Aburto MD [address] [place] [address] [facility] 2 Start: 10-24-2022 End: 10-24-2023 Complete blood count with white cell differential, automated CBC, EDIF, PLATELET Lab Routine Stage 3b chronic kidney disease Expected: 10/24/2022, Expires: 10/24/2023 [facility] Comment on above: Expected: 10/24/2022, Expires: 4 Start: 10-24-2022 End: 10-24-2023 Magnesium [Mass/volume] in Serum or Plasma MAGNESIUM Lab Routine Stage 3b chronic kidney disease Expected: 10/24/2022, Expires: 10/24/2023 [facility] Comment on above: Expected: 10/24/2022, Expires: 4 Start: 10-24-2022 End: 10-24-2023 PTH INTACT PTH INTACT Lab Routine Stage 3b chronic kidney disease Expected: 10/24/2022, Expires: 10/24/2023 [facility] Comment on above: Expected: 10/24/2022, Expires: 4 Start: 10-24-2022 End: 10-24-2023 RENAL FUNCTION PANEL RENAL FUNCTION PANEL Lab Routine Stage 3b chronic kidney disease Expected: 10/24/2022, Expires: 10/24/2023 [facility] Comment on above: Expected: 10/24/2022, Expires: 4 Start: 10-24-2022 End: 10-24-2023 Sodium [Moles/volume] in Urine SODIUM, RANDOM URINE Fluids Routine Stage 3b chronic kidney disease Expected: 10/24/2022, Expires: 10/24/2023 [facility] Comment on above: Expected: 10/24/2022, Expires: 4 Start: 10-24-2022 End: 10-24-2023 Urate [Mass/volume] in Serum or Plasma URIC ACID Lab Routine Stage 3b chronic kidney disease Expected: 10/24/2022, Expires: 10/24/2023 [facility] Comment on above: Expected: 10/24/2022, Expires: 4 Start: 10-24-2022 End: 10-24-2023 Urinalysis dipstick W Reflex Microscopic panel - Urine URINE MICROSCOPIC Fluids Routine Stage 3b chronic kidney disease Expected: 10/24/2022, Expires: 10/24/2023 [facility] Comment on above: Expected: 10/24/2022, Expires: 4 Start: 10-24-2022 End: 10-24-2023 Urinalysis, reagent strip without microscopy URINALYSIS, MACRO Fluids Routine Stage 3b chronic kidney disease Expected: 10/24/2022, Expires: 10/24/2023 [facility] Comment on above: Expected: 10/24/2022, Expires: 4 Start: 10-24-2022 End: 10-24-2023 URINE PROTEIN/CREA RATIO, RANDOM URINE PROTEIN/CREA RATIO, RANDOM Fluids Routine Stage 3b chronic kidney disease Expected: 10/24/2022, Expires: 10/24/2023 [facility] Comment on above: Expected: 10/24/2022, Expires: 4 Start: 10-24-2022 End: 10-24-2023 US Kidney US RENAL RETROPERITONEAL Imaging Routine Stage 3b chronic kidney disease Expected: 10/24/2022, Expires: 10/24/2023 [facility] Comment on above: Expected: 10/24/2022, Expires: 4 Start: 10-24-2022 End: 10-24-2023 VITAMIN D (25-HYDROXY,TOTAL) VITAMIN D (25-HYDROXY,TOTAL) Lab Routine Stage 3b chronic kidney disease Expected: 10/24/2022, Expires: 10/24/2023 [facility] Comment on above: Expected: 10/24/2022, Expires: 4 Start: 08-19-2022 Dental Oral Exam Dental Oral Exam [facility] Start: 06-06-2022 Influenza vaccination [facility] Start: 02-15-2022 End: 02-15-2022 ambulatory 02/15/2022 Treatment Rehabilitation Ximena John MD [address] [place], [place] [id number] Sandy Manrique, PT [facility] Start: 02-13-2022 End: 02-13-2022 ambulatory 02/13/2022 Treatment Rehabilitation Ximena John MD [address] [place], [place] [id number] Sandy Manrique, PT [facility] Start: 02-08-2022 End: 02-08-2022 ambulatory 02/08/2022 Treatment Rehabilitation Ximena John MD [address] [place] [address] Sandy Manrique, PT [facility] Start: 01-31-2022 End: 01-31-2022 ambulatory 01/31/2022 Treatment Rehabilitation Ximena John MD [address] [place] [address] Debra Anand [facility] Start: 01-29-2022 End: 01-29-2022 ambulatory 01/29/2022 Treatment Rehabilitation Exten, Ximena Vasquez MD [address] [place], [place] [id number] Debra Anand [facility] Start: 01-24-2022 End: 01-24-2022 ambulatory 01/24/2022 Treatment Rehabilitation Exten, Ximena Vasquez MD [address] [place], [place] [id number] Sandy Manrique, [facility] Start: 01-22-2022 End: 01-22-2022 ambulatory 01/22/2022 Treatment Rehabilitation Exten, Ximena Vasquez MD [address] [place] [address] Debra Anand [facility] Start: 12-26-2021 End: 12-26-2021 ambulatory 12/26/2021 Treatment Rehabilitation Exten, Ximena Vasquez MD [address] [place] [address] Sandy Manrique, [facility] Start: 12-24-2021 End: 12-24-2021 ambulatory 12/24/2021 Treatment Rehabilitation Exten, Ximena Vasquez MD [address] [place] [address] Debra Anand [facility] Start: 12-20-2021 End: 12-20-2021 ambulatory 12/20/2021 Treatment Rehabilitation Exten, Ximena Vasquez MD [address] [facility] [place] [address] Debra Anand, [facility] Start: 12-18-2021 End: 12-18-2021 ambulatory 12/18/2021 Treatment Rehabilitation [facility] MD [address] [facility] [place] [id number] Debra Anand [facility] Start: 12-12-2021 End: 12-12-2021 ambulatory 12/12/2021 Treatment Rehabilitation Ximena John MD [address] [place] [address] Milena Yancey [facility] Start: 12-12-2021 End: 12-12-2021 Patient encounter procedure Appointment [facility] Work Phone: Start: 12-12-2021 End: 12-12-2021 C-reactive protein C-reactive protein (CRP) [facility] Work Phone: Start: 12-12-2021 End: 12-12-2021 CBC W Auto Differential panel - Blood CBC with Differential [facility] Work Phone: Start: 12-12-2021 End: 12-12-2021 Ct lower extremity w/o contrast material CT right ankle without contrast [facility] Work Phone: Start: 12-12-2021 End: 12-12-2021 Dup-scan xtr veins unilateral/limited study Venous ultrasound right lower extremity [facility] Work Phone: Start: 12-12-2021 End: 12-12-2021 Radex ankle complete minimum 3 views XR ANKLE 3 VWS-RT [facility] Work Phone: Start: 12-12-2021 End: 12-12-2021 Sedimentation rate rbc automated Erythrocytes sedimentation rate (ESR) [facility] Work Phone: Start: 12-10-2021 End: 12-10-2021 ambulatory 12/10/2021 Treatment Rehabilitation Ximena John MD [address] [place], [place] [address]ir[place] [address] Debra Anand, [facility] Start: 12-07-2021 End: 12-07-2021 ambulatory 12/07/2021 Treatment Rehabilitation Ximena John MD [address] [place] [address] Ni Van, [facility] Start: 12-06-2021 End: 12-06-2021 ambulatory 12/06/2021 Treatment Rehabilitation Ximena John MD [address] [place], [place] [id number] Ni Van [facility] Start: 11-30-2021 End: 11-30-2021 ambulatory [facility] Start: 11-27-2021 End: 11-27-2021 ambulatory [facility] Start: 11-23-2021 End: 11-23-2021 ambulatory 11/23/2021 Treatment Rehabilitation Ximena John MD [address] [place], [place] [id number] Sandy Manrique, [facility] Start: 11-21-2021 End: 11-21-2021 ambulatory 11/21/2021 Treatment Rehabilitation Ximena John MD [address] [place] [address] Debra Anand, [facility] Start: 11-15-2021 End: 11-15-2021 ambulatory 11/15/2021 Treatment Rehabilitation Ximena John MD [address] [place] [address] Sandy Manrique, PT [facility] Start: 11-13-2021 End: 11-13-2021 ambulatory 11/13/2021 Treatment Rehabilitation ExtenXimena MD [address] [place], [place] [address]ir[place] [address] Sandy Manrique, PT [facility] Start: 11-08-2021 End: 11-08-2021 ambulatory 11/08/2021 Treatment Rehabilitation ExtenXimena MD [address] [place], [place] [phone] [address] Beverly Ca, [facility] Start: 11-06-2021 End: 11-06-2021 ambulatory 11/06/2021 Treatment Rehabilitation Exten, Ximena Vasquez MD [address] [facility] [place] [address] Sawyer Lund, [facility] Start: 11-01-2021 End: 11-01-2021 ambulatory 11/01/2021 Treatment Rehabilitation ExtenXimena MD [address] [place] [address] [place] [address] Sandy Manrique, PT [facility] Start: 10-30-2021 End: 10-30-2021 ambulatory 10/30/2021 Treatment Rehabilitation Exten, Ximena Vasquez MD [address] [place] [address] Sandy Manrique, PT [facility] Start: 10-18-2021 End: 10-18-2021 ambulatory 10/18/2021 Treatment Rehabilitation Exten, Ximena Vasquez MD [address] [facility] [place] [address] Sandy Manrique, PT [facility] Start: 10-17-2021 End: 10-17-2021 Patient encounter procedure 10/17/2021 Office Visit Orthopedic Surgery Harrison, Kenya Gonzalez CNP [address] [place] [address] [facility] Start: 10-16-2021 End: 10-16-2021 ambulatory 10/16/2021 Treatment Rehabilitation Ximena John MD [address] [place] [id number] Sandy Manrique, PT [facility] Start: 10-11-2021 End: 10-11-2021 ambulatory 10/11/2021 Treatment Rehabilitation Ximena John MD [address] [place] [address] Sandy Manrique, PT [facility] Start: 10-09-2021 End: 10-09-2021 ambulatory 10/09/2021 Treatment Rehabilitation Ximena John MD [address] [place] [address] Sandy Manrique, PT [facility] Start: 10-04-2021 End: 10-04-2021 ambulatory 10/04/2021 Treatment Rehabilitation Ximena John MD [address] [place] [address] Beverly Ca PTA [facility] Start: 10-02-2021 End: 10-02-2021 ambulatory 10/02/2021 Treatment Rehabilitation Ximena John MD [address] [place] [id number] Milena Yancey NURSING SUPPORT WORKER [facility] Start: 09-27-2021 End: 09-27-2021 ambulatory 09/27/2021 Treatment Ximena Lacy MD [address] [place] [address] Beverly Ca PTA [facility] Start: 09-26-2021 COVID-19 Vaccine (3 - Booster for Pfizer series) COVID-19 Vaccine (3 - Booster for Pfizer series) [facility] Start: 09-26-2021 COVID-19 Vaccine (3 - Pfizer booster) COVID-19 Vaccine (3 - Pfizer booster) [facility] Start: 09-25-2021 End: 09-25-2021 ambulatory 09/25/2021 Treatment Ximena Lacy MD [address] [place] [address] Milena Yancey [facility] Start: 09-21-2021 End: 09-21-2021 ambulatory 09/21/2021 Treatment Ximena Lacy MD [address] [place] [address] Sandy Manrique PT [facility] Start: 09-11-2021 End: 09-11-2021 Patient encounter procedure 09/11/2021 Office Visit Orthopedic Surgery Ximena John MD [address] [place] [address] [facility] Start: 08-27-2021 COVID-19 Vaccine (3 - Booster for Pfizer series) COVID-19 Vaccine (3 - Booster for Pfizer series) [facility] Start: 08-14-2021 End: 08-14-2021 Patient encounter procedure 08/14/2021 Office Visit Orthopedic Surgery Ximena John MD [address] [place] [address] [facility] Start: 06-06-2021 Influenza vaccination Sequential Influenza Vaccine (#1) [facility] Start: 05-22-2021 COVID-19 Vaccine (3 - Booster for Pfizer series) COVID-19 Vaccine (3 - Booster for Pfizer series) [facility] Start: 05-22-2021 COVID-19 VACCINE (3 - Pfizer series) COVID-19 VACCINE (3 - Pfizer series) [facility] Start: 06-06-2018 Influenza vaccination INFLUENZA VACCINE (#1) [facility] Start: 06-06-2017 Influenza vaccination SEQUENTIAL INFLUENZA VACCINE (#1) [facility] Work Phone: Start: 12-29-2013 Administration of herpes zoster vaccine Zoster Vaccines (1 of 2) [facility] Start: 12-29-2013 Colonoscopy COLON CANCER SCREENING DISCUSSION [facility] Start: 12-29-2013 Imm-Zoster, Recombinant (1 of 2) Imm-Zoster, Recombinant (1 of 2) [facility] Start: 12-29-2013 Pneumococcal Vaccine: Age 50+ (1 of 1 - PCV) Pneumococcal Vaccine: Age 50+ (1 of 1 - PCV) [facility] Start: 12-29-2013 Screening for malignant neoplasm of colon [facility] Start: 12-29-2013 Zoster vaccine hzv live for subcutaneous use ZOSTER (SHINGLES) VACCINE (1 of 2) [facility] Start: 12-29-2008 Screening for malignant neoplasm of colon [facility] Start: 2003 Fasting lipid profile LIPID SCREENING [facility] Start: 2003 Lipid panel LIPID SCREENING [facility] Start: 2003 Screening for malignant neoplasm of breast [facility] Start: 2003 Screening mammography MAMMOGRAM SCREENING DISCUSSION [facility] Start: 12-29-1993 Screening for malignant neoplasm of cervix [facility] Start: 12-29-1984 Screening for malignant neoplasm of cervix [facility] Start: 12-29-1982 Administration of herpes zoster vaccine Zoster Vaccines (1 of 2) [facility] Start: 12-29-1982 Hepatitis B vaccination HEP B VACCINE (1 of 3 - 19+ 3-dose series) [facility] Start: 12-29-1982 Pneumococcal vaccination PNEUMOCOCCAL VACCINE SERIES (1 of 2 - PCV) [facility] Start: 12-29-1982 Tetanus vaccination Imm-DTaP/Tdap/Td (1 - Tdap) [facility] Start: 12-29-1982 Third diphtheria, tetanus and acellular pertussis (DTaP) vaccination TDAP (ADULT) [facility] Start: 12-29-1981 Hepatitis C screening Hepatitis C Screening [facility] Start: 12-29-1981 Tetanus vaccination TETANUS [facility] Start: 12-29-1978 HIV screening [facility] Start: 12-29-1978 HIV Screening HIV Screening [facility] Start: 12-29-1976 HIV screening HIV SCREENING DISCUSSION [facility] Start: 1975 Depression screening using PHQ-9 (Patient Health Questionnaire 9) score [facility] Start: 12-29-1973 Microalbumin measurement, urine, quantitative Urine Microalbumin [facility] Start: 12-29-1973 Urine screening for protein Urine Microalbumin [facility] Start: 12-29-1969 PNEUMOCOCCAL VACCINE SERIES (1 of 2 - PCV) PNEUMOCOCCAL VACCINE SERIES (1 of 2 - PCV) [facility] Start: 12-29-1969 Pneumococcal Vaccine: Ped or At-Risk (1 - PCV) Pneumococcal Vaccine: Ped or At-Risk (1 - PCV) [facility] Start: 12-29-1966 History and physical examination, annual for health maintenance Wellness Visit [facility] Start: 1963 Anxiety Screening Anxiety Screening [facility] Start: 1963 Dental Prophylaxis Dental Prophylaxis [facility] Start: 1963 Diabetes mellitus screening Diabetes Screening [facility] Start: 1963 Hepatitis B vaccination HEP B VACCINE (1 of 3 - 3-dose series) [facility] Start: 1963 Hepatitis C antibody, confirmatory test HEPATITIS C VIRUS SCREENING [facility] Start: 1963 Hepatitis C screening [facility] Start: 1963 Lipid panel Lipid Screening [facility] Start: 1963 Screening for malignant neoplasm of colon [facility] Start: 1963 Tobacco Screening Tobacco Screening [facility] Start: 1963 HEPATITIS C SCREENING HEPATITIS C SCREENING [facility] Work Phone: Start: 1963 Screening colonoscopy [facility] Work Phone: Start: 1963 End: 1963 Screening for malignant neoplasm of cervix [facility] Start: 1963 End: 1963 Tetanus vaccination [facility] Alanine aminotransfe rase [Enzymatic activity/volume] in Serum or Plasma [facility] Albumin [Mass/volume ] in Serum or Plasma [facility] Alkaline phosphatase [Enzymatic activity/volume] in Serum or Plasma [facility] Anion gap measurement [facility] Aspartate aminotransferase [Enzymatic activity/volume] in Serum or Plasma [facility] Bilirubin, total measurement [facility] BUN/Creatinine ratio [facility] Calcium [Mass/volume ] in Serum or Plasma [facility] Carbon dioxide, tota l [Moles/volume] in Serum or Plasma [facility] Chloride [Moles/volu me] in Serum or Plasma [facility] Creatinine [Moles/vo lume] in Serum or Plasma [facility] End: 11-20-2022 CT Abdomen and Pelvis [facility] Comment on above: 1 Occurrences starting 11/20/2022 until 11/20/2022 Glucose [Mass/volume ] in Serum or Plasma [facility] Hematocrit [Volume Fraction] of Blood [facility] Hemoglobin [Mass/vol ume] in Blood [facility] Leukocytes [#/volume ] in Blood [facility] Mean corpuscular hemoglobin concentration determination [facility] Mean corpuscular hemoglobin determination [facility] Anil post-voiding residual urine&/bladder cap [place] ANIL,POST-VOID RES,US,NON-IMAGING [place] Charge Routine Hydronephrosis, unspecified hydronephrosis type Urinary frequency Ordered: 11/29/2022 [facility] Comment on above: Ordered: 11/29/2022 Measurement of renal function [facility] Neutrophil count [facility] Neutrophil percent differential count [facility] Patient Education \\cps-sql1\\CPS_ PtEducatio n\\CDC_[email or web address].pd f [facility] Work Phone: Patient Education Diverticulitis Dc [facility] Work Phone: Patient referral [facility] Work Phone: Platelets [#/volume] in Blood [facility] Potassium [Moles/vol ume] in Serum or Plasma [facility] Red blood cell count [facility] Red cell distributio n width determination [facility] Sodium [Moles/volume ] in Serum or Plasma [facility] End: 01-16-2023 Standard ECG ECG ECG STAT One Time for 1 Occurrences starting 01/16/2023 until 01/16/2023 [facility] Comment on above: One Time for 1 Occurrences starting 01/04 until 01/16/2023 Total protein measurement [facility] Urea nitrogen [Mass/volume] in Serum or Plasma [facility] End: 08-08-2022 X-ray of right ankle XR Ankle Right 3+ Views (Standard) Imaging Routine Pain 1 Occurrences starting 08/08/2021 until 08/08/2022 [facility] Work Phone: Comment on above: 1 Occurrences starting 08/08/2021 until 08/08/2022 End: 09-06-2022 X-ray of right ankle XR Ankle Right 3+ Views (Standard) Imaging Routine Ankle fracture, bimalleolar, closed, right, initial encounter 1 Occurrences starting 09/06/2021 until 09/06/2022 [facility] Work Phone: Comment on above: 1 Occurrences starting 09/06/2021 until 09/06/2022 [facility] Immunizations Immunization Date Immunization Notes Care Provider [facility] 06-22-2020 influenza virus vaccine, unspecified formulation Rehana Hernandez MD Work Phone: [facility] 07-01-2016 Influenza virus vaccine [facility] Payers Date Payer Category Payer Self-pay [id number] 2024 Managed Care (unspecified) [employer] [id number] 2023 Unknown [id number] 2019 [employer] ANTHEM BL UE/PREF/HMO/PPO [id number]. [id number] 2019 Unknown [employer]THEM ANTHEM BLUE/PREF/HMO/PPO [id number] 2019-Present [phone] [id number] [place] [id number] 1.2.840.759538.1.13.385.2. 7.3.872916.315 2018 Unknown [id number]. 1.13.385.2. 7.3.043216.315 2016 Unknown ANTHEM ANTHEM HM O PPO POS [id number] 2016-Present [id number] 1.2.840.968336.1.13.172.2. 7.3.188985.315 2016 Unknown [id number] 2016 Unknown [id number] 1963 Unknown [id number] 2..840.1.604089.3.579.2. 903 1963 Unknown [id number] 2..840.1.131258.3.579.2. 903 1963 Unknown [id number] 2..840.1.332449.3.579.2 1963 Unknown [id number] .840.1.454665.3.579.2 1963 Unknown [id number] .840.1.954438.3.579.2 1963 Unknown [id number] 840.1.538607.3.579.2 1963 Unknown [id number] .840.1.810044.3.579.2 1963 Unknown [id number] 840.1.304735.3.579. 1963 Unknown [id number] .840.1.817172.3.579.2 1963 Unknown [id number] .1.280144.3.579. 1963 Unknown [id number] .840.1.276447.3.579.2 1963 Unknown [id number] 840.1.230563.3.579. 1963 Unknown [id number] 840.1.154452.3.579.2 1963 Unknown [id number] .1.036452.3.579.2 1963 Unknown [id number] 840.1.224602.3.579.2 1963 Unknown [id number] 840.1.574266.3.579.2 1963 Unknown [id number] 840.1.477436.3.579.2 1963 Unknown [id number] 840.1.646603.3.579.2 1963 Unknown [id number] 2.16.840.1.983949.3.579.2. 903 1963 Unknown [id number] 2.16.840.1.376382.3.579.2 1963 Unknown [id number] 2.16.840.1.563265.3.579.2. 1963 Unknown [id number] 2.16.840.1.436948.3.579.2 1963 Unknown [id number] 2.16.840.1.827988.3.579.2 1963 Unknown [id number] 2.16.840.1.218384.3.579.2 1963 Unknown [id number] 2.16.840.1.608496.3.579.2 1963 Unknown [id number] 2.16.840.1.311271.3.579.2 1963 Unknown [id number] 2.16.840.1.871511.3.579.2 1963 Unknown [id number] 2.16.840.1.788674.3.579.2 1963 Unknown [id number] 2.16.840.1.451248.3.579.2 1963 Unknown [id number] 2.16.840.1.122036.3.579.2 1963 Unknown [id number] 2.16.840.1.885895.3.579.2 1963 Unknown [id number] 2.16.840.1.558865.3.579.2 1963 Unknown [id number] 2.16.840.1.359002.3.579.2 90 1963 Unknown [id number] 2.16.840.1.880921.3.579.2 903 1963 Unknown [id number] 2.16.840.1.617388.3.579.2. 983 1963 Unknown [id number] 2.16.840.1.457865.3.579.2. 983 1963 Unknown [id number] 2.16.840.1.920643.3.579.2. 1249 1963 Unknown [id number] 2.16.840.1.932318.3.579.2. 983 1963 Unknown [id number] 2.16.840.1.780121.3.579.2. 983 1963 Unknown [id number] 2.16840.1.664702.3.579.2. 983 1963 Unknown [id number] 2.16840.1.554584.3.579.2. 983 1963 Unknown [id number] 2.16840.1.220461.3.579.2. 983 1963 Unknown [id number] 2.16.840.1.840859.3.579.2. 983 1963 Unknown [id number] 2.16840.1.900856.3.579.2. 983 1963 Unknown [id number] 2.16.840.1.906281.3.579.2. 983 1963 Unknown [id number] 2.16840.1.703170.3.579.2. 983 1963 Unknown [id number] 2.16.840.1.115460.3.579.2. 983 1963 Unknown [id number] 2.16.840.1.213494.3.579.2. 983 1963 Unknown [id number] 2.16.840.1.769366.3.579.2. 983 1963 Unknown [id number] 2.16.840.1.133973.3.579.2. 983 1963 Unknown [id number] 2.16.840.1.465042.3.579.2. 983 1963 Unknown [id number] 2.16.840.1.434966.3.579.2. 983 1963 Unknown [id number] 2.16.840.1.797858.3.579.2. 983 1963 Unknown [id number] 2.16.840.1.539157.3.579.2. 983 1963 Unknown [id number] 2.16.840.1.353471.3.579.2. 983 Unknown [id number] 2.16.840.1.872781.3.249.13 Unknown [id number] 2.16.840.1.826457.3.579.2. 462 Unknown [id number] 2.16.840.1.722839.3.579.2. 462 Social History Date Type Detail Facility Start: 06-18-2017 End: 10-20-2023 Tobacco smoking status [facility] Unknown if ever smoked [facility] Start: 1965 Sex Assigned At Not on file O [employer] Phone: Start: 12-17-2018 End: 09-09-2022 Tobacco smoking status KYIS Former smoker [facility] Start: 12-17-2018 Alcohol Comment [facility] End: 07-31-1990 History of tobacco use Current smoker [facility] Start: 07-31-2021 End: 09-09-2022 Tobacco use and exposure Smokeless tobacco non-user [facility] Start: 08-02-2021 End: 06-15-2025 Alcohol intake Current drinker of alcohol (finding) [facility] Start: 07-31-2021 History SDOH Alcohol Comment socially [facility] Start: 10-22-2021 End: 05-15-2023 Exposure to SARS-CoV-2 (event) Not sure [facility] Start: 02-03-2017 Rare [facility] Start: 02-03-2017 None [facility] Start: 02-03-2017 Spouse/ Signif icant Other [facility] Start: 1965 Sex Assigned At Female [facility] End: 07-31-1990 History of tobacco use Cigarette Smoker [facility] Start: 04-17-2023 End: 06-15-2025 History of Social function [facility] Start: 04-17-2023 End: 06-15-2025 Tobacco use panel [facility] Start: 08-11-2017 Gender identity Identifies as female gender (finding) [facility] Start: 11-08-2012 End: 01-26-2025 Sex Female (finding) [facility] NEGATED: Highlighted rowStart: 12-12-2021 End: 12-12-2021 Alcohol use Alcohol use [facility] Work Phone: NEGATED: Highlighted rowStart: 12-12-2021 End: 12-12-2021 Details of drug misuse behavior Details of drug misuse behavior [facility] Work Phone: NEGATED: Highlighted rowStart: 12-12-2021 End: 12-12-2021 Employment detail Employment detail [facility] Work Phone: NEGATED: Highlighted rowStart: 12-12-2021 End: 12-12-2021 Assertion Former smoker [facility] Work Phone: NEGATED: Highlighted row [facility] Medical Equipment Procedure Code Equipment Code Equipment Origin al Text Equipment Identifier Dates Screw 3.5 X 24mm Cortex Self-Tap - [id number] Start: 08-01-2021 Screw 3.5 X 24mm Locking Self-Tap Strdrv Rec - [id number] Start: 08-01-2021 Screw 3.5 X 18mm Locking Self-Tap Strdrv Rec - [id number] Start: 08-01-2021 Screw 4 X 40mm C leno Short Thrd - [id number] Start: 08-01-2021 Screw 3.5 X 26mm Locking Self-Tap Strdrv Rec - [id number] Start: 08-01-2021 Screw 3.5x34mm Cortex Self-Tap - [id number] Start: 08-01-2021 Screw 3.5 X 36mm Cortex Self-Tap - [id number] Start: 08-01-2021 Plate 57mm 5hl 1 /3 Tubular W/Collar Lcp - [id number] Start: 08-01-2021 Screw 3.5 X 14mm Self-Tap Cortex - [id number] Start: 08-01-2021 Screw 3.5x30mm Cortex Self-Tap - [id number] Start: 08-01-2021 Screw 3.5 X 10mm Locking Self-Tap Strdrv Rec - [id number] Start: 08-01-2021 Screw 3.5 X 12mm Locking Self-Tap Strdrv Rec - [id number] Start: 08-01-2021 Plate 81mm 7hl 1 /3 Tubular W/Collar Lcp - [id number] Start: 08-01-2021 Goals Date Patient Goal Desired Activity /State Personal health goal Comment on above: Formatting of this n ote is different from the original. Pt will be independent in a HEP to improve muscular strength and endurance of the affected LE, knee and hip ROM and gait/balance exercises. Pt will report reduced pain in the affected knee to 0-1/10 or to an accepted level of tolerance to return to prior level of functional and recreational activities. Pt will demonstrate improved strength of the affected LE to allow performance of 20 7 step-ups and symmetrical balance and reach excursion.. Pt will be able to demonstrate full body weight chair squat without pain in the knee. Pt will be able to ambulate with normal gait pattern showing full knee extension during stance phase, normal knee flexion during swing phase and a normal belen and stride length without assistive device. Comment on above: 1. The patient will safely, correctly and independently demonstrate the ability to perform a progressive HEP to achieve maximum rehabilitation potential and prevent this conditions from recurring. 2. The pt will report that pain is abolished or reduced to a tolerable level at rest and with activities such as reaching overhead, reaching behind back, lifting, gripping, carrying objects, or throwing. 3. The patient will achieve symmetrical or functional ROM to perform desired self-care, housework, work recreational, or sports activities. 4. The patient will increase UE strength in deficit areas to greater than or equal to 4+ out of 5 to return to desired activity levels. 5. The patient will be able to perform reaching, lifting, carrying, throwing, or other work-related tasks at desired endurance levels. 6. The patient will increase quality assurance monitor final strength to increase participation in ADLs/IADLs. 7. The patient will report increased ADL independence by the ability to complete all daily activities without the report of pain, decreased strength or decreased ROM interfering. 8. Pt will increase FMC to increase participation and [place] with ADLs/IADLs. 9.Reduce fall risk by recognizing and educating on contributing factors including home environment, current health status, and mobility limitations. Functional Status Date Assessment Result Facility 08-12-2023 Functional status Ambulates [facility] Work Phone: Mental Status Date Assessment Result Facility 10-21-2023 Cognitive function Voice/Name [facility] Work Phone: 10-21-2023 Cognitive function Patient Oripatrick florentino Person;Place;Time [facility] Work Phone: 08-12-2023 Cognitive function Voice/Name [facility] Work Phone: Clinical Notes 07-31-2021 to 06-15-2025 Rudy Aburto MD - 06/15/2025 10:15 AM Leonid Aburto MD - 03/23/2025 10:45 AM Christofer Pacheco DDS - 12/27/2024 5:51 PM IVETH Saldaña - 11/04/2024 9:15 AM ESTDischarge Instructions Note Date & Type Note Facility 06-15-2025 History of Presen t illness Narrative DAILY PROGRESS NOTE Admit Date: (Not on file) Date of Evaluation: 0:52 AM [facility] @[facility]@ IMPRESSION AND PLAN: 56 y/o female with history of CKD IIIB, lipidemia and HTN is here for CKD care. She is very sensitive to medications. She likes 3 months visit. 1) CKD IIIB due to HTN Cr 1.58 -> 1.38 -> 1.36 -> 1.69 -> 1.49 -> 1.61 -> 1.50 -> 1.60 -> 1.73 -> 1.49 -> 1.68 -> 1.50 -> 1.70 -> 1.56 UA disclosed proteinuria. 24 hour urine pr 578 Spot urine microalbumin / Cr 144.5 -> 116.1 -> 73.3 -> 55.1 Urine Na 128 -> 154 -> 107 -> 139 -> 167 -> 155 -> 131, stable Continue with farxiga daily Will get UA. Will get renal panel. 2) HTN SBP 130s Continue with lisinopril 5mg PO Qday. 3) Protienuria Spot urine pr/cr 0.3 -> 0.5 -> 0.4 -> 0.5 -> 0.3 -> 0.2 -> 0.3 -> 0.2 -> 0.3 Will consider kidney biopsy. 4) Hydronephrosis Renal US disclosed mild to moderate hydronephrosis of the left kidney. No no evidence of nephrolithiasis. CT urogram disclosed no hydronephrosis. Resolved. 5) Hyperparathyroid Vitamin D 28.3 -> 47.5 PTH 101.3 -> 135.7 -> 78 Ca 10.0 -> 9.8 DEXA disclosed osteopenic. There is an increased risk of fracture. Discontinue rayaldee She cannot tolerate it daily Continue with calcitriol SUBJECTIVE: Patient seen and examined. Chart, medications, labs reviewed. Appointment on 06/13/2025 Component Date Value Ref Range Status Glucose 06/13/2025 87 70 - 100 MG/DL Final Comment: NORMAL <100 mg/dL PREDIABETES 101-126 mg/dL DIABETES 126 mg/dL or higher BUN 06/13/2025 16 7 - 20 mg/dL Final CREATININE SERUM 06/13/2025 1.56 (H) 0.70 - 1.20 mg/dL Final SODIUM 06/13/2025 140 137 - 145 MMOL/L Final Potassium 06/13/2025 3.4 (L) 3.5 - 5.1 MMOL/L Final CHLORIDE 06/13/2025 106 98 - 107 MMOL/L Final Please note: Triglyceride levels of 600mg/dL or higher may positively bias chloride results by approximately 2.1 mmol CARBON DIOXIDE (CO2) 06/13/2025 25 22 - 30 MMOL/L Final Albumin 06/13/2025 3.9 3.5 - 5.0 g/dL Final CALCIUM 06/13/2025 9.4 8.4 - 10.2 mg/dL Final PHOSPHORUS 06/13/2025 3.5 2.5 - 4.5 MG/DL Final ESTIMATED GFR 06/13/2025 36 ml/min/1.73sq.m Final GFR COMMENT 06/13/2025 Average GFR for 60-69 years old = 85. Final Comment: Chronic Kidney disease, GFR = <60. Kidney failure, GFR = <15. The GFR estimate is not adjusted for extreme body surface area or acute process, nor has it been validated for women or ethnic groups other than and . MDRD Equation MAGNESIUM 06/13/2025 1.9 1.6 - 2.3 MG/DL Final WBC (WHITE BLOOD COUNT) 06/13/2025 5.5 3.6 - 11.0 10*3/uL Final RBC 06/13/2025 4.68 4.0 - 5.4 10*6/uL Final HEMOGLOBIN (HGB) 06/13/2025 14.2 12.0 - 16.0 G/DL Final HEMATOCRIT (HCT) 06/13/2025 42.4 36.0 - 48.0 % Final Mean Cell Volume 06/13/2025 90.7 80.0 - 100.0 FL Final Mean Cell HGB 06/13/2025 30.4 26.0 - 35.0 PG Final Mean Cell HGB Concentration 06/13/2025 33.5 27.0 - 37.0 G/DL Final RBC Distribution 06/13/2025 14.5 11.5 - 14.5 % Final PLATELET COUNT 06/13/2025 315 130 - 400 10*3/uL Final Mean Platelet Volume 06/13/2025 7.2 (L) 7.4 - 11.0 FL Final DIFFERENTIAL TYPE 06/13/2025 AUTO DIFF % Final NEUTROPHILS 06/13/2025 54.4 37.0 - 75.0 % Final LYMPHOCYTE 06/13/2025 32.6 20.0 - 55.0 % Final MONOCYTE % 06/13/2025 9.0 0.0 - 10.0 % Final EOSINOPHIL % 06/13/2025 3.4 0.0 - 11.0 % Final BASOPHIL % 06/13/2025 0.6 0.0 - 2.0 % Final Absolute Neutrophil Count 06/13/2025 3.0 1.4 - 6.5 10*3/uL Final LYMPHOCYTES, ABSOLUTE 06/13/2025 1.8 1.2 - 3.4 10*3/uL Final MONOCYTES, ABSOLUTE 06/13/2025 0.5 0.0 - 0.7 10*3/uL Final ABSOLUTE EOSINOPHIL COUNT 06/13/2025 0.2 0.0 - 0.7 10*3/uL Final ABSOLUTE BASOPHIL COUNT 06/13/2025 0.0 0.0 - 0.2 10*3/uL Final CREATININE, MG/DL, URINE 06/13/2025 100.4 MG/DL Final NO NORMAL VALUES ESTABLISHED FOR RANDOM SPECIMENS Microalbumin, Urine, Random 06/13/2025 135.4 (H) 0.0 - 16.7 mg/L Final MICROALBUMIN/CREATININE RATIO 06/13/2025 134.9 (H) 1.3 - 30.0 mg MALB/g CREAT Final PROTEIN MG/DL-URINE 06/13/2025 31 (H) 0 - 12 MG/DL Final CREATININE, MG/DL, URINE 06/13/2025 102.6 MG/DL Final NO NORMAL VALUES ESTABLISHED FOR RANDOM SPECIMENS PROTEIN/CREAT RATIO, URINE 06/13/2025 0.3 Final Comment: REFERENCE RANGES <0.2 NORMAL 0.2-3.5 NON-NEPHROTIC >3.5 NEPHROTIC Color, Urine 06/13/2025 YELLOW YELLOW Final Appearance, Urine 06/13/2025 CLEAR CLEAR Final Specific [place], Urine 06/13/2025 1.020 1.010 - 1.025 Final PH URINE 06/13/2025 5.5 5.0 - 7.0 Final Urine Protein 06/13/2025 30 (A) NEGATIVE mg/dl Final Glucose, Urine 06/13/2025 500 (A) NEGATIVE mg/dl Final Ketones, Urine 06/13/2025 NEGATIVE NEGATIVE mg/dl Final BILIRUBIN, URINE 06/13/2025 NEGATIVE NEGATIVE Final BLOOD, URINE DIPSTICK 06/13/2025 TRACE-INTACT (A) NEGATIVE Final Nitrites, Urine 06/13/2025 NEGATIVE NEGATIVE Final Urobilinogen, Urine 06/13/2025 0.2 0.2 - 1.0 E.U./dL Final Leukocyte esterase, Urine 06/13/2025 NEGATIVE NEGATIVE Final SODIUM, URINE RANDOM 06/13/2025 131 (H) 30 - 90 mmol/L Final WBC, Urine 06/13/2025 NEGATIVE NEGATIVE /HPF Final RBC, Urine 06/13/2025 NEGATIVE NEGATIVE /HPF Final Epithelial Cells UA 06/13/2025 1 TO 5 /HPF Final Mucus 06/13/2025 NEGATIVE NEGATIVE Final Bacteria, Urine 06/13/2025 TRACE (A) NEGATIVE Final CRYSTALS, URINE 06/13/2025 NONE NONE Final CASTS, URINE 06/13/2025 NONE NONE /LPF Final COMMENT, URINE 06/13/2025 CULTURE CRITERIA NOT MET, NO CULTURE PERFORMED. Corrected CORRECTED ON 06/13 AT 1117: PREVIOUSLY REPORTED PHYSICIAN REQUESTED CULTURE, CORRECTED ON 06/13 AT 1116: PREVIOUSLY REPORTED CULTURE CRITERIA NOT MET, NO CULTURE PERFORMED. LABS Labs-ABGs @ABGROUNDS@ Labs-CBC @CBCBRIEFROUNDS@ Labs-Chem 7(PMC) @[facility]@ Labs-Coags WBC (WHITE BLOOD COUNT) Date Value Ref Range Status 06/13/2025 5.5 3.6 - 11.0 10*3/uL Final 03/21/2025 4.5 3.6 - 11.0 10*3/uL Final 12/14/2024 5.0 3.6 - 11.0 10*3/uL Final HEMOGLOBIN (HGB) Date Value Ref Range Status 06/13/2025 14.2 12.0 - 16.0 G/DL Final 03/21/2025 15.5 12.0 - 16.0 G/DL Final 12/14/2024 14.4 12.0 - 16.0 G/DL Final HEMATOCRIT (HCT) Date Value Ref Range Status 06/13/2025 42.4 36.0 - 48.0 % Final 03/21/2025 45.5 36.0 - 48.0 % Final 12/14/2024 43.5 36.0 - 48.0 % Final PLATELET COUNT Date Value Ref Range Status 06/13/2025 315 130 - 400 10*3/uL Final 03/21/2025 265 130 - 400 10*3/uL Final 12/14/2024 326 130 - 400 10*3/uL Final SODIUM Date Value Ref Range Status 06/13/2025 140 137 - 145 MMOL/L Final 03/21/2025 139 137 - 145 MMOL/L Final 12/14/2024 142 137 - 145 MMOL/L Final CHLORIDE Date Value Ref Range Status 06/13/2025 106 98 - 107 MMOL/L Final Comment: Please note: Triglyceride levels of 600mg/dL or higher may positively bias chloride results by approximately 2.1 mmol 03/21/2025 101 98 - 107 MMOL/L Final Comment: Please note: Triglyceride levels of 600mg/dL or higher may positively bias chloride results by approximately 2.1 mmol 12/14/2024 108 (H) 98 - 107 MMOL/L Final Comment: Please note: Triglyceride levels of 600mg/dL or higher may positively bias chloride results by approximately 2.1 mmol BUN Date Value Ref Range Status 06/13/2025 16 7 - 20 mg/dL Final 03/21/2025 24 (H) 7 - 20 mg/dL Final 12/14/2024 14 7 - 20 MG/DL Final Potassium Date Value Ref Range Status 06/13/2025 3.4 (L) 3.5 - 5.1 MMOL/L Final 03/21/2025 4.1 3.5 - 5.1 MMOL/L Final 12/14/2024 4.1 3.5 - 5.1 MMOL/L Final CREATININE SERUM Date Value Ref Range Status 06/13/2025 1.56 (H) 0.70 - 1.20 mg/dL Final 03/21/2025 1.70 (H) 0.70 - 1.20 mg/dL Final 12/14/2024 1.50 (H) 0.70 - 1.20 MG/DL Final Glucose Date Value Ref Range Status 06/13/2025 87 70 - 100 MG/DL Final Comment: NORMAL <100 mg/dL PREDIABETES 101-126 mg/dL DIABETES 126 mg/dL or higher 03/21/2025 79 70 - 100 MG/DL Final Comment: NORMAL <100 mg/dL PREDIABETES 101-126 mg/dL DIABETES 126 mg/dL or higher 12/14/2024 109 (H) 70 - 100 MG/DL Final Comment: NORMAL <100 mg/dL PREDIABETES 101-126 mg/dL DIABETES 126 mg/dL or higher PT Date Value Ref Range Status 09/24/2024 13.2 11.8 - 14.4 SEC Final PTT Date Value Ref Range Status 09/24/2024 27.8 22.4 - 34.7 SEC Final Comment: CARDIAC AND PE/DVT THERAPUTIC RANGE 69-97 SEC VASCULAR/THREATENED LIMB THERAPUTIC RANGE 80-112 SEC PROTEIN, TOTAL Date Value Ref Range Status 01/16/2023 7.0 6.3 - 8.2 GM/DL Final 09/09/2022 6.7 6.3 - 8.2 GM/DL Final Albumin Date Value Ref Range Status 06/13/2025 3.9 3.5 - 5.0 g/dL Final 03/21/2025 4.1 3.5 - 5.0 g/dL Final 12/14/2024 4.0 3.5 - 5.0 G/dl Final AST Date [...] Final CALCIUM Date Value Ref Range Status 06/13/2025 9.4 8.4 - 10.2 mg/dL Final 03/21/2025 9.8 8.4 - 10.2 mg/dL Final 12/14/2024 9.2 8.4 - 10.2 MG/DL Final PHOSPHORUS Date Value Ref Range Status 06/13/2025 3.5 2.5 - 4.5 MG/DL Final 03/21/2025 3.5 2.5 - 4.5 MG/DL Final 12/14/2024 3.3 2.5 - 4.5 MG/DL Final MAGNESIUM Date Value Ref Range Status 06/13/2025 1.9 1.6 - 2.3 MG/DL Final 03/21/2025 2.2 1.6 - 2.3 MG/DL Final 12/14/2024 2.1 1.6 - 2.3 MG/DL Final Lab Results Component Value Date CREATURINE 100.4 06/13/2025 CREATURINE 102.6 06/13/2025 CREATSERUM 1.56 (H) 06/13/2025 BUN 16 06/13/2025 SODIUM 140 06/13/2025 POTASSIUM 3.4 (L) 06/13/2025 CHLORIDE 106 06/13/2025 CO2 25 06/13/2025 ROS: Constitution: No fever, no chill HEENT: No headache, no sinus issues CV: No chest pain, no palpitation Lung: No cough, No SOB Abd: No diarrhea, no constipation Neuro: No seizure, no loss of consciousness Heme: No bleeding, no bruise PHYSICAL EXAM: Wt Readings from Last 3 Encounters: 06/15/25 71.7 kg (158 lb) 03/23/25 71.8 kg (158 lb 3.2 oz) 12/22/24 72.7 kg (160 lb 4.8 oz) Temp Readings from Last 3 Encounters: 11/04/24 96.1 F (35.6 C) (Temporal) 10/21/24 97.5 F (36.4 C) (Temporal) 09/20/24 97.8 F (36.6 C) (Temporal) BP Readings from Last 3 Encounters: 06/15/25 138/86 03/23/25 136/82 12/22/24 124/86 Pulse Readings from Last 3 Encounters: 06/15/25 80 03/23/25 83 12/22/24 76 Gen: NAD, lying in bed, conversant HEENT: Atraumatic, PERRLA, moist membrane CV: RRR, nl S1 and S2, no m/g/r Lung: CTAB, no wheezing, no crackle Abd: +BS, nontender, no distended Ext: No rash, no clubbing, no cyanosis. No edema. Neuro: CNII-XII grossly intact, 5/5 strength, normal tone Skin: Warm and dry documented in this encounter [facility] 03-23-2025 History of Presen t illness Narrative DAILY PROGRESS NOTE Admit Date: (Not on file) Date of Evaluation: 1:20 AM [facility] @[facility]@ IMPRESSION AND PLAN: 56 y/o female with history of CKD IIIB, lipidemia and HTN is here for CKD care. She is very sensitive to medications. She likes 3 months visit. 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 24 hour urine pr 578 Spot urine microalbumin / Cr 144.5 -> 116.1 -> 73.3 -> 55.1 Urine Na 128 -> 154 -> 107 -> 139 -> 167 -> 155, stable Continue with farxiga daily Will get UA. Will get renal panel. 2) HTN SBP 130s Continue with lisinopril 5mg PO Qday. 3) Protienuria Spot urine pr/cr 0.3 -> 0.5 -> 0.4 -> 0.5 -> 0.3 -> 0.2 -> 0.3 -> 0.2 Will consider kidney biopsy. 4) Hydronephrosis Renal US disclosed mild to moderate hydronephrosis of the left kidney. No no evidence of nephrolithiasis. CT urogram disclosed no hydronephrosis. Resolved. 5) Hyperparathyroid Vitamin D 28.3 -> 47.5 PTH 101.3 -> 135.7 -> 78 Ca 10.0 -> 9.8 DEXA disclosed osteopenic. There is an increased risk of fracture. Discontinue rayaldee She cannot tolerate it daily Continue with calcitriol SUBJECTIVE: Patient seen and examined. Chart, medications, labs reviewed. Appointment on 03/21/2025 Component Date Value Ref Range Status VITAMIN D 25 HYDROXY 03/21/2025 33.4 NG/ML Final Comment: DEFICIENT <20 NG/ML INSUFFICIENT 20-<30 NG/ML SUFFICIENT 30-100 NG/ML POTENTIAL TOXICITY >100 NG/ML Glucose 03/21/2025 79 70 - 100 MG/DL Final Comment: NORMAL <100 mg/dL PREDIABETES 101-126 mg/dL DIABETES 126 mg/dL or higher BUN 03/21/2025 24 (H) 7 - 20 mg/dL Final CREATININE SERUM 03/21/2025 1.70 (H) 0.70 - 1.20 mg/dL Final SODIUM 03/21/2025 139 137 - 145 MMOL/L Final Potassium 03/21/2025 4.1 3.5 - 5.1 MMOL/L Final CHLORIDE 03/21/2025 101 98 - 107 MMOL/L Final Please note: Triglyceride levels of 600mg/dL or higher may positively bias chloride results by approximately 2.1 mmol CARBON DIOXIDE (CO2) 03/21/2025 28 22 - 30 MMOL/L Final Albumin 03/21/2025 4.1 3.5 - 5.0 g/dL Final CALCIUM 03/21/2025 9.8 8.4 - 10.2 mg/dL Final PHOSPHORUS 03/21/2025 3.5 2.5 - 4.5 MG/DL Final ESTIMATED GFR 03/21/2025 32 ml/min/1.73sq.m Final GFR COMMENT 03/21/2025 Average GFR for 60-69 years old = 85. Final Comment: Chronic Kidney disease, GFR = <60. Kidney failure, GFR = <15. The GFR estimate is not adjusted for extreme body surface area or acute process, nor has it been validated for women or ethnic groups other than and . MAGNESIUM 03/21/2025 2.2 1.6 - 2.3 MG/DL Final WBC (WHITE BLOOD COUNT) 03/21/2025 4.5 3.6 - 11.0 10*3/uL Final RBC 03/21/2025 4.97 4.0 - 5.4 10*6/uL Final HEMOGLOBIN (HGB) 03/21/2025 15.5 12.0 - 16.0 G/DL Final HEMATOCRIT (HCT) 03/21/2025 45.5 36.0 - 48.0 % Final Mean Cell Volume 03/21/2025 91.6 80.0 - 100.0 FL Final Mean Cell HGB 03/21/2025 31.2 26.0 - 35.0 PG Final Mean Cell HGB Concentration 03/21/2025 34.1 27.0 - 37.0 G/DL Final RBC Distribution 03/21/2025 14.9 (H) 11.5 - 14.5 % Final PLATELET COUNT 03/21/2025 265 130 - 400 10*3/uL Final Mean Platelet Volume 03/21/2025 7.2 (L) 7.4 - 11.0 FL Final DIFFERENTIAL TYPE 03/21/2025 AUTO DIFF % Final NEUTROPHILS 03/21/2025 50.4 37.0 - 75.0 % Final LYMPHOCYTE 03/21/2025 36.7 20.0 - 55.0 % Final MONOCYTE % 03/21/2025 8.9 0.0 - 10.0 % Final EOSINOPHIL % 03/21/2025 2.9 0.0 - 11.0 % Final BASOPHIL % 03/21/2025 1.1 0.0 - 2.0 % Final Absolute Neutrophil Count 03/21/2025 2.3 1.4 - 6.5 10*3/uL Final LYMPHOCYTES, ABSOLUTE 03/21/2025 1.7 1.2 - 3.4 10*3/uL Final MONOCYTES, ABSOLUTE 03/21/2025 0.4 0.0 - 0.7 10*3/uL Final ABSOLUTE EOSINOPHIL COUNT 03/21/2025 0.1 0.0 - 0.7 10*3/uL Final ABSOLUTE BASOPHIL COUNT 03/21/2025 0.0 0.0 - 0.2 10*3/uL Final CREATININE, MG/DL, URINE 03/21/2025 108.1 MG/DL Final NO NORMAL VALUES ESTABLISHED FOR RANDOM SPECIMENS Microalbumin, Urine, Random 03/21/2025 59.6 (H) 0.0 - 16.7 mg/L Final MICROALBUMIN/CREATININE RATIO 03/21/2025 55.1 (H) 1.3 - 30.0 mg MALB/g CREAT Final PROTEIN MG/DL-URINE 03/21/2025 12 0 - 12 MG/DL Final CREATININE, MG/DL, URINE 03/21/2025 109.4 MG/DL Final NO NORMAL VALUES ESTABLISHED FOR RANDOM SPECIMENS PROTEIN/CREAT RATIO, URINE 03/21/2025 0.1 Final Comment: REFERENCE RANGES <0.2 NORMAL 0.2-3.5 NON-NEPHROTIC >3.5 NEPHROTIC Color, Urine 03/21/2025 YELLOW YELLOW Final Appearance, Urine 03/21/2025 CLEAR CLEAR Final Specific [place], Urine 03/21/2025 1.020 1.010 - 1.025 Final PH URINE 03/21/2025 6.0 5.0 - 7.0 Final Urine Protein 03/21/2025 NEGATIVE NEGATIVE mg/dl Final Glucose, Urine 03/21/2025 500 (A) NEGATIVE mg/dl Final Ketones, Urine 03/21/2025 NEGATIVE NEGATIVE mg/dl Final BILIRUBIN, URINE 03/21/2025 NEGATIVE NEGATIVE Final BLOOD, URINE DIPSTICK 03/21/2025 NEGATIVE NEGATIVE Final Nitrites, Urine 03/21/2025 NEGATIVE NEGATIVE Final Urobilinogen, Urine 03/21/2025 0.2 0.2 - 1.0 E.U./dL Final Leukocyte esterase, Urine 03/21/2025 NEGATIVE NEGATIVE Final SODIUM, URINE RANDOM 03/21/2025 85 30 - 90 mmol/L Final WBC, Urine 03/21/2025 NEGATIVE NEGATIVE /HPF Final RBC, Urine 03/21/2025 NEGATIVE NEGATIVE /HPF Final Epithelial Cells UA 03/21/2025 1 TO 5 /HPF Final Mucus 03/21/2025 NEGATIVE NEGATIVE Final Bacteria, Urine 03/21/2025 1+ (A) NEGATIVE Final CRYSTALS, URINE 03/21/2025 NONE NONE Final CASTS, URINE 03/21/2025 NONE NONE /LPF Final COMMENT, URINE 03/21/2025 CULTURE CRITERIA NOT MET, NO CULTURE PERFORMED. Final LABS Labs-ABGs @ABGROUNDS@ Labs-CBC @CBCBRIEFROUNDS@ Labs-Chem 7([facility]) @[facility]@ Labs-Coags WBC (WHITE BLOOD COUNT) Date Value Ref Range Status 03/21/2025 4.5 3.6 - 11.0 10*3/uL Final 12/14/2024 5.0 3.6 - 11.0 10*3/uL Final 09/13/2024 5.6 3.6 - 11.0 10*3/uL Final HEMOGLOBIN (HGB) Date Value Ref Range Status 03/21/2025 15.5 12.0 - 16.0 G/DL Final 12/14/2024 14.4 12.0 - 16.0 G/DL Final 09/13/2024 15.3 12.0 - 16.0 G/DL Final HEMATOCRIT (HCT) Date Value Ref Range Status 03/21/2025 45.5 36.0 - 48.0 % Final 12/14/2024 43.5 36.0 - 48.0 % Final 09/13/2024 45.6 36.0 - 48.0 % Final PLATELET COUNT Date Value Ref Range Status 03/21/2025 265 130 - 400 10*3/uL Final 12/14/2024 326 130 - 400 10*3/uL Final 09/13/2024 297 130 - 400 10*3/uL Final SODIUM Date Value Ref Range Status 03/21/2025 139 137 - 145 MMOL/L Final 12/14/2024 142 137 - 145 MMOL/L Final 09/13/2024 139 137 - 145 MMOL/L Final CHLORIDE Date Value Ref Range Status 03/21/2025 101 98 - 107 MMOL/L Final Comment: Please note: Triglyceride levels of 600mg/dL or higher may positively bias chloride results by approximately 2.1 mmol 12/14/2024 108 (H) 98 - 107 MMOL/L Final Comment: Please note: Triglyceride levels of 600mg/dL or higher may positively bias chloride results by approximately 2.1 mmol 09/13/2024 108 (H) 98 - 107 MMOL/L Final Comment: Please note: Triglyceride levels of 600mg/dL or higher may positively bias chloride results by approximately 2.1 mmol BUN Date Value Ref Range Status 03/21/2025 24 (H) 7 - 20 mg/dL Final 12/14/2024 14 7 - 20 MG/DL Final 09/13/2024 16 7 - 20 MG/DL Final Potassium Date Value Ref Range Status 03/21/2025 4.1 3.5 - 5.1 MMOL/L Final 12/14/2024 4.1 3.5 - 5.1 MMOL/L Final 09/13/2024 4.1 3.5 - 5.1 MMOL/L Final CREATININE SERUM Date Value Ref Range Status 03/21/2025 1.70 (H) 0.70 - 1.20 mg/dL Final 12/14/2024 1.50 (H) 0.70 - 1.20 MG/DL Final 09/13/2024 1.68 (H) 0.70 - 1.20 MG/DL Final Glucose Date Value Ref Range Status 03/21/2025 79 70 - 100 MG/DL Final Comment: NORMAL <100 mg/dL PREDIABETES 101-126 mg/dL DIABETES 126 mg/dL or higher 12/14/2024 109 (H) 70 - 100 MG/DL Final Comment: NORMAL <100 mg/dL PREDIABETES 101-126 mg/dL DIABETES 126 mg/dL or higher 09/13/2024 88 70 - 100 MG/DL Final Comment: NORMAL <100 mg/dL PREDIABETES 101-126 mg/dL DIABETES 126 mg/dL or higher PT Date Value Ref Range Status 09/24/2024 13.2 11.8 - 14.4 SEC Final PTT Date Value Ref Range Status 09/24/2024 27.8 22.4 - 34.7 SEC Final Comment: CARDIAC AND PE/DVT THERAPUTIC RANGE 69-97 SEC VASCULAR/THREATENED LIMB THERAPUTIC RANGE 80-112 SEC PROTEIN, TOTAL Date Value Ref Range Status 01/16/2023 7.0 6.3 - 8.2 GM/DL Final 09/09/2022 6.7 6.3 - 8.2 GM/DL Final Albumin Date Value Ref Range Status 03/21/2025 4.1 3.5 - 5.0 g/dL Final 12/14/2024 4.0 3.5 - 5.0 G/dl Final 09/13/2024 4.3 3.5 - 5.0 G/dl Final AST Date [...] Final CALCIUM Date Value Ref Range Status 03/21/2025 9.8 8.4 - 10.2 mg/dL Final 12/14/2024 9.2 8.4 - 10.2 MG/DL Final 09/13/2024 10.0 8.4 - 10.2 MG/DL Final PHOSPHORUS Date Value Ref Range Status 03/21/2025 3.5 2.5 - 4.5 MG/DL Final 12/14/2024 3.3 2.5 - 4.5 MG/DL Final 09/13/2024 3.6 2.5 - 4.5 MG/DL Final MAGNESIUM Date Value Ref Range Status 03/21/2025 2.2 1.6 - 2.3 MG/DL Final 12/14/2024 2.1 1.6 - 2.3 MG/DL Final 09/13/2024 2.2 1.6 - 2.3 MG/DL Final Lab Results Component Value Date CREATURINE 108.1 03/21/2025 CREATSERUM 1.70 (H) 03/21/2025 BUN 24 (H) 03/21/2025 SODIUM 139 03/21/2025 POTASSIUM 4.1 03/21/2025 CHLORIDE 101 03/21/2025 CO2 28 03/21/2025 ROS: Constitution: No fever, no chill HEENT: No headache, no sinus issues CV: No chest pain, no palpitation Lung: No cough, No SOB Abd: No diarrhea, no constipation Neuro: No seizure, no loss of consciousness Heme: No bleeding, no bruise PHYSICAL EXAM: Wt Readings from Last 3 Encounters: 03/23/25 71.8 kg (158 lb 3.2 oz) 12/22/24 72.7 kg (160 lb 4.8 oz) 11/04/24 70.3 kg (155 lb) Temp Readings from Last 3 Encounters: 11/04/24 96.1 F (35.6 C) (Temporal) 10/21/24 97.5 F (36.4 C) (Temporal) 09/20/24 97.8 F (36.6 C) (Temporal) BP Readings from Last 3 Encounters: 03/23/25 136/82 12/22/24 124/86 10/21/24 138/78 Pulse Readings from Last 3 Encounters: 03/23/25 83 12/22/24 76 10/21/24 63 Gen: NAD, lying in bed, conversant HEENT: Atraumatic, PERRLA, moist membrane CV: RRR, nl S1 and S2, no m/g/r Lung: CTAB, no wheezing, no crackle Abd: +BS, nontender, no distended Ext: No rash, no clubbing, no cyanosis. No edema. 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 Treatment Plan Discussed with patient: Tooth #2 DO, #15 Build-up Significant Radiographic Findings: Comp Exam Instructions: Brushing, Flossing, Clean Tongue Next Visit: Prophy and Restorative Mandaeism on Tooth #2 DO Dx: Fractured jain Anesthetic: 2% Lidocaine with Epinephrine Observation: Solid structure Procedure: Composite Fill, Shade-Omnichroma Post-op Instructions: Avoid chewing until numbness fades Next Visit: Prophy and Restorative documented in this encounter [employer] Phone: 11-04-2024 History of Presen t illness Narrative Orthopedics and Sports Medicine Chief Complaint Patient presents with Post Op Visit 14 days S/p left knee arthroscopy, PMM, PLM. Patient states that the knee is overall doing well. Going to therapy 2x per week and completing home exercises. HPI: She presents 2 weeks status post left knee arthroscopy, PM, PLM. She states that the knee is doing well overall. Currently in physical therapy twice a week which is going well. She has been continuing exercises at home. Denies any other issues or concerns. Vitals: 11/04/24 0904 Temp: 96.1 degrees F (35.6 degrees C) TempSrc: Temporal Weight: 70.3 kg (155 lb) Height: 1.6 m (5' 3") Physical Exam: Involved Lower Extremity: ROM: 0-120. Quad tone good. Calf supple and non tender. Mild effusion. Incisions healing well. No erythema. No drainage. Sutures removed. Steri strips placed. Distally neurovascularly intact with 2+ DP pulse and full sensation in the DP/SP/Tibial nerve distribution. Assessment: ICD-10-CM 1. S/P left knee arthroscopy Z98.890 Plan: She is doing well, continue PT to work on ROM, strengthening, and swelling control. She will use NSAIDS as needed for pain control. If She has any questions or issues She will contact the office. Follow up in 6 weeks for repeat evaluation. Voice recognition software was used for this note. I have edited this note but errors may occur documented in this encounter [facility] 10-21-2024 Miscellaneous Notes Patient discharged at this time via wheelchair to care of friend who is driving. Crutches sent home with patient, all belongings returned to patient. Patient is tolerating PO and passing all ambulatory discharged criteria. Patient getting dressed at this time. Discharge instructions reviewed by Marva GORDON. Green folder given to patient, both patient and visitor voice understanding. Patient ambulated to the bathroom w standby assist and crutches she demonstrated good technique and was able to urinate. Patient medicated at this time for pain. DATE OF SURGERY: 10/21/2024 PRE OPERATIVE DIAGNOSIS: Tear of medial meniscus of left knee, current, unspecified tear type, initial encounter [S83.242A] Tear of lateral meniscus of left knee, current, unspecified tear type, initial encounter [S83.282A] Primary osteoarthritis of left knee [M17.12] POST OPERATIVE DIAGNOSIS: Tear of medial meniscus of left knee, current, unspecified tear type, initial encounter [S83.242A] Tear of lateral meniscus of left knee, current, unspecified tear type, initial encounter [S83.282A] Primary osteoarthritis of left knee [M17.12] PROCEDURE: Procedure(s) (LRB): #2 ARTHROSCOPY KNEE W/ MENISCECTOMY (Left) SURGEON Surgeons and Role: * Tom Cross MD - Primary ASSISTANTS: NONE ANESTHESIOLOGIST WEATHER ANALYST: Cristóbal Portillo APRN-WEATHER ANALYST SURGICAL STAFF Raw Stock Machine Feeder: Terry Cooper RN Scrub Person: ARVIN Funes; Winter Avelar ANESTHESIA TYPE: General FLUIDS: Per anesthesia record. ESTIMATED BLOOD LOSS: Minimal INDICATIONS FOR PROCEDURE: The patient is a pleasant individual who we have been following in our orthopedic office for their knee pain. The MRI evidence along with some signs and symptoms were in agreement with the diagnosis, and the patient had failed conservative measures of treatment. They desired to undergo arthroscopic intervention, so we consented the patient with all risks and benefits explained and no guarantees or warrantees made. DESCRIPTION OF PROCEDURE: The patient was correctly identified in the preoperative holding area with the correct limb marked. They were brought back to the operating room and placed supine on a well-padded table with the operative leg in an arthroscopic leg collier and nonoperative leg in a well leg collier. The foot of the bed was dropped and they were prepped and draped in a standard sterile fashion. A timeout was performed and antibiotics administered. An #11 blade was used to make a stab incision in the superolateral aspect of the knee, and the inflow cannula was inserted and the knee filled with fluid. A standard anteromedial and anterolateral portals were then established. The camera was inserted into the knee, and the findings were as follows (the following represents the grade of cartilage wear in each compartment): Patella: II Trochlear Groove: II Medial Femoral Condyle: II Medial Tibial Plateau: II Lateral Femoral Condyle: II Lateral Tibial Plateau: I Intercondylar Notch: Intact ACL and PCL The medial meniscus was then evaluated and found to have a tear at the posterior horn. and body.. The meniscal tear was debrided using a shaver and meniscal biter down to a clean, smooth surface. The meniscus was stable after debridement. The lateral meniscus was then evaluated and found to have a tear in the the body. This was debrided using the shaver and meniscal biter down to a clean smooth surface. The other components were inspected and found to be intact at the probing and visualization. The knee was again verified to not have any fragments, including in the gutters, that were loose. I subsequently drained the fluid from the knee and closed the wounds using 3-0 nylon. The wounds were then injected with 1% lidocaine and 0.5% bupivacaine as well as the knee itself for a total of 20 cc. The wounds were then dressed using 4 x 4s, ABDs, soft roll, and Jose wrap. The patient was then awakened and transferred off the table without incident. COMPLICATIONS None DRAINS: None. CONDITIONS: Stable to PACU. Tom Cross MD October 21, 2024 10:09 AM Azeb Hutchison ([id number]) PRE OPERATIVE DIAGNOSIS Tear of medial meniscus of left knee, current, unspecified tear type, initial encounter [S83.242A] Tear of lateral meniscus of left knee, current, unspecified tear type, initial encounter [S83.282A] Primary osteoarthritis of left knee [M17.12] POST OPERATIVE DIAGNOSIS Tear of medial meniscus of left knee, current, unspecified tear type, initial encounter [S83.242A] Tear of lateral meniscus of left knee, current, unspecified tear type, initial encounter [S83.282A] Primary osteoarthritis of left knee [M17.12] PROCEDURE PERFORMED Left knee arthroscopy, PMM, PLM PRIMARY CLOSURE Yes INTRAOPERATIVE FINDINGS No significant abnormalities SURGEON Surgeons and Role: * Tom Cross MD - Primary ANESTHESIOLOGIST WEATHER ANALYST: Cristóbal Portillo APRN-[facility] SURGICAL STAFF Raw Stock Machine Feeder: Terry Cooper RN Scrub Person: ARVIN Funes; Winter Avelar COMPLICATIONS None ESTIMATED BLOOD LOSS Minimal SPECIMENS No specimen sent * No specimens in log * Justin Castillo APRN-WAGNER October 21, 2024 9:18 AM documented in this encounter [facility] 10-21-2024 Nurse Note Patient discharged at this time via wheelchair to care of friend who is driving. Crutches sent home with patient, all belongings returned to patient. [facility] 10-21-2024 Nurse Note Patient is tolerating PO and passing all ambulatory discharged criteria. Patient getting dressed at this time. [facility] 10-21-2024 Nurse Note Discharge instructions reviewed by Marva GORDON. Green folder given to patient, both patient and visitor voice understanding. [facility] 10-21-2024 Nurse Note Patient ambulated to the bathroom w standby assist and crutches she demonstrated good technique and was able to urinate. [facility] 10-21-2024 Nurse Note Patient medicated at this time for pain. [facility] 10-21-2024 Surgery Postoperative evaluation and management note DATE OF SURGERY: 10/21/2024 PRE OPERATIVE DIAGNOSIS: Tear of medial meniscus of left knee, current, unspecified tear type, initial encounter [S83.242A] Tear of lateral meniscus of left knee, current, unspecified tear type, initial encounter [S83.282A] Primary osteoarthritis of left knee [M17.12] POST OPERATIVE DIAGNOSIS: Tear of medial meniscus of left knee, current, unspecified tear type, initial encounter [S83.242A] Tear of lateral meniscus of left knee, current, unspecified tear type, initial encounter [S83.282A] Primary osteoarthritis of left knee [M17.12] PROCEDURE: Procedure(s) (LRB): #2 ARTHROSCOPY KNEE W/ MENISCECTOMY (Left) SURGEON Surgeons and Role: * Tom Cross MD - Primary ASSISTANTS: NONE ANESTHESIOLOGIST WEATHER ANALYST: Cristóbal Portillo APRN-WEATHER ANALYST SURGICAL STAFF Raw Stock Machine Feeder: Terry Cooper RN Scrub Person: ARVIN Funes; Winter Avelar ANESTHESIA TYPE: General FLUIDS: Per anesthesia record. ESTIMATED BLOOD LOSS: Minimal INDICATIONS FOR PROCEDURE: The patient is a pleasant individual who we have been following in our orthopedic office for their knee pain. The MRI evidence along with some signs and symptoms were in agreement with the diagnosis, and the patient had failed conservative measures of treatment. They desired to undergo arthroscopic intervention, so we consented the patient with all risks and benefits explained and no guarantees or warrantees made. DESCRIPTION OF PROCEDURE: The patient was correctly identified in the preoperative holding area with the correct limb marked. They were brought back to the operating room and placed supine on a well-padded table with the operative leg in an arthroscopic leg collier and nonoperative leg in a well leg collier. The foot of the bed was dropped and they were prepped and draped in a standard sterile fashion. A timeout was performed and antibiotics administered. An #11 blade was used to make a stab incision in the superolateral aspect of the knee, and the inflow cannula was inserted and the knee filled with fluid. A standard anteromedial and anterolateral portals were then established. The camera was inserted into the knee, and the findings were as follows (the following represents the grade of cartilage wear in each compartment): Patella: II Trochlear Groove: II Medial Femoral Condyle: II Medial Tibial Plateau: II Lateral Femoral Condyle: II Lateral Tibial Plateau: I Intercondylar Notch: Intact ACL and PCL The medial meniscus was then evaluated and found to have a tear at the posterior horn. and body.. The meniscal tear was debrided using a shaver and meniscal biter down to a clean, smooth surface. The meniscus was stable after debridement. The lateral meniscus was then evaluated and found to have a tear in the the body. This was debrided using the shaver and meniscal biter down to a clean smooth surface. The other components were inspected and found to be intact at the probing and visualization. The knee was again verified to not have any fragments, including in the gutters, that were loose. I subsequently drained the fluid from the knee and closed the wounds using 3-0 nylon. The wounds were then injected with 1% lidocaine and 0.5% bupivacaine as well as the knee itself for a total of 20 cc. The wounds were then dressed using 4 x 4s, ABDs, soft roll, and Jose wrap. The patient was then awakened and transferred off the table without incident. COMPLICATIONS None DRAINS: None. CONDITIONS: Stable to PACU. Tom Cross MD October 21, 2024 10:09 AM [facility] Work Phone: 10-21-2024 Nurse Note Discharged from PACU in stable condition. Transported via cart to bay 13 . Cart placed in lowest position. Call light within reach. Report given to Jacquelyn GORDON at bedside. Patient transported to PACU with Cristóbal DONATO and RN sound controller. Reports given to Wilber GORDON at 0907H. OR 4 Temp 67.5F Humidity 38.5% documented in this encounter [facility] 10-21-2024 Nurse Surgical operation note Discharged from PACU in stable condition. Transported via cart to bay 13 . Cart placed in lowest position. Call light within reach. Report given to Jacquelyn GORDON at bedside. [facility] 10-21-2024 Hospital Discharg e slick Dubon RN - 10/21/2024 9:[address] Cross's discharge instructions in the green folder provided for your detailed postoperative instructions. Important Phone Numbers If you still have concerns call the hospital where your procedure was done and ask for the House Charge Nurse/PCC ([facility] [phone] .) Ask them to call the anesthesiologist or WEATHER ANALYST collection coordinator. Your call will be returned. Anesthesia Precautions & Expectations: After anesthesia, rest for [address], drink alcoholic beverages or make any important decisions during this time. General anesthesia may cause a sore throat, jaw discomfort or muscle aches. These symptoms can last for one or two days. documented in this encounter [facility] 10-21-2024 Surgery Postoperative evaluation and management note Azeb Hutchison ([id number]) PRE OPERATIVE DIAGNOSIS Tear of medial meniscus of left knee, current, unspecified tear type, initial encounter [S83.242A] Tear of lateral meniscus of left knee, current, unspecified tear type, initial encounter [S83.282A] Primary osteoarthritis of left knee [M17.12] POST OPERATIVE DIAGNOSIS Tear of medial meniscus of left knee, current, unspecified tear type, initial encounter [S83.242A] Tear of lateral meniscus of left knee, current, unspecified tear type, initial encounter [S83.282A] Primary osteoarthritis of left knee [M17.12] PROCEDURE PERFORMED Left knee arthroscopy, PMM, PLM PRIMARY CLOSURE Yes INTRAOPERATIVE FINDINGS No significant abnormalities SURGEON Surgeons and Role: * Tom Cross MD - Primary ANESTHESIOLOGIST WEATHER ANALYST: Cristóbal Portillo APRN-[employer]AN[employer] SURGICAL STAFF Raw Stock Machine Feeder: Terry Cooper RN Scrub Person: ARVIN Funes; Winter Avelar COMPLICATIONS None ESTIMATED BLOOD LOSS Minimal SPECIMENS No specimen sent * No specimens in log * Justin Castillo APRN-WAGNER October 21, 2024 9:18 AM [facility] 10-21-2024 Nurse Surgical operation note Patient transported to PACU with Cristóbal DONATO and RN sound controller. Reports given to Wilber GORDON at 0907H. [facility] 10-21-2024 Nurse Surgical operation note OR 4 Temp 67.5F Humidity 38.5% [facility] 09-20-2024 History of Presen t illness Narrative Chief Complaint Patient presents with Knee Pain Left knee - MRI completed on 02/03/24. Received left knee steroid injection by Dr Max on 06/28/24 mag only helped with the pain for approximately 2 weeks. Patient states that the knee has been having pain for over 1 year. Patient states that she used a knee scooter in 2020 following a surgery and has been having increased pain since . Pain is felt along the medial knee and radiates down her leg at times. HPI: Patient presents with left knee pain. MRI completed on 02/03/2024. Received a left knee intra-articular steroid injection by Dr. Max on 06/28/2024 which only provided her with around 2 weeks of relief. Patient states that the knee has been painful for over 1 year. Patient states that she used a knee scooter in 2020 following a surgery and has been having pain in the knee since that time. Pain is primarily felt along the medial joint line and radiates down her leg at times. Patient states that when she has pain they are sharp in nature specifically along the medial aspect of the knee. She has difficulty with stairs as well as getting in an out of vehicle due to level of pain. She is here today to review the MRI and discuss surgical options as she is no longer able to function on a daily basis as she once could. She is unable to complete activities that she once enjoyed due to level of pain. She is here today to discuss options. PMH: Past Medical History: Diagnosis Date Asthma CKD [...] Former Smokeless tobacco: Never Vaping Use Vaping status: Never Used Substance and Sexual Activity Alcohol [...] on file Housing Stability: Not on file Albuterol, Codeine, Morphine, Penicillins, Duloxetine, and Lisinopril Family History Problem Relation Age of Onset Kidney Disease Mother Diabetes Mother Other - Specify Mother fibromyalgia Hypertension Mother Kidney Disease Sister Diabetes Maternal Aunt Diabetes Maternal Grandmother Vitals: 09/20/24 1048 Temp: 97.8 degrees F (36.6 degrees C) TempSrc: Temporal Weight: 74.4 kg (164 lb) Height: 1.6 m (5' 3") Physical Exam: Knee Exam: left ROM: 0-130. Quad tone: fair. Calf supple and nontender. No effusion. Palpation: Medial and lateral joint line tenderness to palpation Yennifer's: Negative Posterior Drawer: Negative Varus/Valgus stress: Negative Thomas's: Positive Patellar apprehension: Negative Patellar compression: Positive Distally neurovascular intact with 2+ DP pulse and full sensation in the DP/SP/Tibial nerve distributions. Review of Images: See procedure note Assessment: ICD-10-CM 1. Other tear of medial meniscus of left knee as current injury, initial encounter S83.242A 2. Other tear of lateral meniscus of left knee as current injury, initial encounter S83.282A 3. Primary osteoarthritis of left knee M17.12 Plan: At this time, we have reviewed the past medical notes pertaining to her chief complaint today, as well as her left knee MRI which shows free edge tearing of the body segment of the left medial meniscus with a subtle radial tear, upon my read of the MRI there is also lateral meniscus tear which was not seen upon the MRI formal read, as well as chondrosis of the left medial trochlea. She shows signs of this on exam as well. We have discussed options with the patient today from conservative to surgical. She has failed conservative options to date including a left knee intra-articular steroid injection and activity modification as well as extensive home physical therapy exercises. Due to this, we are offering her a left knee arthroscopy, partial medial meniscectomy, partial lateral menisectomy, and other interventions as needed. We have discussed with the patient that this should help with the sharp stabbing pains associated with a meniscus tearing but not the dull achy pains associated with the underlying knee OA. She is understanding of this at this time. She is electing to proceed with surgery at this time. She will schedule for this in the near future. She will need PCP clearance prior to surgical intervention. She will follow up in office within 30 days of surgery. Call the office with any questions or concerns in meantime. Consent: Both Surgical and Non-surgical methods of treatment were discussed with the patient and they have elected to proceed with surgery. The risks and benefits were thoroughly explained including but not limited to: infection, bleeding, neurovascular damage, blood clots which may lead to pulmonary embolism, the need for further surgery stroke, and . It was also explained that the goal of surgery is to correct structural abnormalities that may be resulting in their pain but may not get rid of all the pain they are experiencing. At this time, the patients quality of life has decreased with the pain they are experiencing and they cannot perform daily functions. The patient voiced full understanding and wishes to proceed with surgery. They will be scheduled in the near future. Left knee arthroscopy, partial medial meniscectomy, partial lateral menisectomy, and other interventions as needed Chief Complaint Patient presents with Knee Pain Left knee - MRI completed on 02/03/24. Received left knee steroid injection by Dr Max on 06/28/24 mag only helped with the pain for approximately 2 weeks. Patient states that the knee has been having pain for over 1 year. Patient states that she used a knee scooter in 2020 following a surgery and has been having increased pain since . Pain is felt along the medial knee and radiates down her leg at times. HPI: Patient presents with left knee pain. MRI completed on 02/03/2024. Received a left knee intra-articular steroid injection by Dr. Max on 06/28/2024 which only provided her with around 2 weeks of relief. Patient states that the knee has been painful for over 1 year. Patient states that she used a knee scooter in 2020 following a surgery and has been having pain in the knee since that time. Pain is primarily felt along the medial joint line and radiates down her leg at times. Patient states that when she has pain they are sharp in nature specifically along the medial aspect of the knee. She has difficulty with stairs as well as getting in an out of vehicle due to level of pain. She is here today to review the MRI and discuss surgical options as she is no longer able to function on a daily basis as she once could. She is unable to complete activities that she once enjoyed due to level of pain. She is here today to discuss options. PMH: Past Medical History: Diagnosis Date Asthma CKD [...] Former Smokeless tobacco: Never Vaping Use Vaping status: Never Used Substance and Sexual Activity Alcohol [...] on file Housing Stability: Not on file Albuterol, Codeine, Morphine, Penicillins, Duloxetine, and Lisinopril Family History Problem Relation Age of Onset Kidney Disease Mother Diabetes Mother Other - Specify Mother fibromyalgia Hypertension Mother Kidney Disease Sister Diabetes Maternal Aunt Diabetes Maternal Grandmother Vitals: 09/20/24 1048 Temp: 97.8 degrees F (36.6 degrees C) TempSrc: Temporal Weight: 74.4 kg (164 lb) Height: 1.6 m (5' 3") Physical Exam: Knee Exam: left ROM: 0-130. Quad tone: fair. Calf supple and nontender. No effusion. Palpation: Medial and lateral joint line tenderness to palpation Yennifer's: Negative Posterior Drawer: Negative Varus/Valgus stress: Negative Thomas's: Positive Patellar apprehension: Negative Patellar compression: Positive Distally neurovascular intact with 2+ DP pulse and full sensation in the DP/SP/Tibial nerve distributions. Review of Images: See procedure note Assessment: ICD-10-CM 1. Other tear of medial meniscus of left knee as current injury, initial encounter S83.242A 2. Other tear of lateral meniscus of left knee as current injury, initial encounter S83.282A 3. Primary osteoarthritis of left knee M17.12 Plan: At this time, we have reviewed the past medical notes pertaining to her chief complaint today, as well as her left knee MRI which shows free edge tearing of the body segment of the left medial meniscus with a subtle radial tear, upon my read of the MRI there is also lateral meniscus tear which was not seen upon the MRI formal read, as well as chondrosis of the left medial trochlea. She shows signs of this on exam as well. We have discussed options with the patient today from conservative to surgical. She has failed conservative options to date including a left knee intra-articular steroid injection and activity modification as well as extensive home physical therapy exercises. Due to this, we are offering her a left knee arthroscopy, partial medial meniscectomy, partial lateral menisectomy, and other interventions as needed. We have discussed with the patient that this should help with the sharp stabbing pains associated with a meniscus tearing but not the dull achy pains associated with the underlying knee OA. She is understanding of this at this time. She is electing to proceed with surgery at this time. She will schedule for this in the near future. She will need PCP clearance prior to surgical intervention. She will follow up in office within 30 days of surgery. Call the office with any questions or concerns in meantime. Consent: Both Surgical and Non-surgical methods of treatment were discussed with the patient and they have elected to proceed with surgery. The risks and benefits were thoroughly explained including but not limited to: infection, bleeding, neurovascular damage, blood clots which may lead to pulmonary embolism, the need for further surgery stroke, and . It was also explained that the goal of surgery is to correct structural abnormalities that may be resulting in their pain but may not get rid of all the pain they are experiencing. At this time, the patients quality of life has decreased with the pain they are experiencing and they cannot perform daily functions. The patient voiced full understanding and wishes to proceed with surgery. They will be scheduled in the near future. Left knee arthroscopy, partial medial meniscectomy, partial lateral menisectomy, and other interventions as needed VERONICA Munoz was acting as a scribe today for this note. I have performed all essential components of the history, and physical exam. I have confirmed the diagnosis and developed a plan of care at this visit. I have reviewed the note following the visit and have add edits as appropriate to my evaluation and plan of care. Tom Cross MD documented in this encounter [facility] 09-16-2024 History of Presen t illness Narrative DAILY PROGRESS NOTE Admit Date: (Not on file) Date of Evaluation: 43:35 PM [facility] @RRHLOS@ IMPRESSION AND PLAN: 56 y/o female with history of CKD IIIB, lipidemia and HTN is here for CKD care. She is very sensitive to medications. She likes 3 months visit. 1) CKD IIIB due to HTN Cr 1.58 -> 1.38 -> 1.36 -> 1.69 -> 1.49 -> 1.61 -> 1.50 -> 1.60 -> 1.73 -> 1.49 -> 1.68 UA disclosed proteinuria. 24 hour urine pr 578 Spot urine microalbumin / Cr 144.5 -> 116.1 Urine Na 128 -> 154 -> 107 -> 139 -> 167 -> 155 Continue with farxiga daily Will get UA. Will get renal panel. 2) HTN SBP 130s Continue with lisinopril 5mg PO Qday. 3) Protienuria Spot urine pr/cr 0.3 -> 0.5 -> 0.4 -> 0.5 -> 0.3 -> 0.2 -> 0.3 -> 0.2 Will consider kidney biopsy. 4) Hydronephrosis Renal US disclosed mild to moderate hydronephrosis of the left kidney. No no evidence of nephrolithiasis. CT urogram disclosed no hydronephrosis. Resolved. 5) Hyperparathyroid Vitamin D 28.3 -> 47.5 PTH 101.3 -> 135.7 -> 78 Ca 10.0 DEXA disclosed osteopenic. There is an increased risk of fracture. Discontinue rayaldee She cannot tolerate it daily Continue with calcitriol Will repeat vitamin D since she has not been taking her vitamin D. SUBJECTIVE: Patient seen and examined. Chart, medications, labs reviewed. Appointment on 09/13/2024 Component Date Value Ref Range Status Glucose 09/13/2024 88 70 - 100 MG/DL Final Comment: NORMAL <100 mg/dL PREDIABETES 101-126 mg/dL DIABETES 126 mg/dL or higher BUN 09/13/2024 16 7 - 20 MG/DL Final CREATININE SERUM 09/13/2024 1.68 (H) 0.70 - 1.20 MG/DL Final SODIUM 09/13/2024 139 137 - 145 MMOL/L Final Potassium 09/13/2024 4.1 3.5 - 5.1 MMOL/L Final CHLORIDE 09/13/2024 108 (H) 98 - 107 MMOL/L Final Please note: Triglyceride levels of 600mg/dL or higher may positively bias chloride results by approximately 2.1 mmol CARBON DIOXIDE (CO2) 09/13/2024 28 22 - 30 MMOL/L Final Albumin 09/13/2024 4.3 3.5 - 5.0 G/dl Final CALCIUM 09/13/2024 10.0 8.4 - 10.2 MG/DL Final PHOSPHORUS 09/13/2024 3.6 2.5 - 4.5 MG/DL Final ESTIMATED GFR, NON AMER 09/13/2024 33 ml/min/1.73sq.m Final ESTIMATED GFR, 09/13/2024 40 ml/min/1.73sq.m Final GFR COMMENT 09/13/2024 Average GFR for 60-69 years old = 85. Final Comment: Chronic Kidney disease, GFR = <60. Kidney failure, GFR = <15. The GFR estimate is not adjusted for extreme body surface area or acute process, nor has it been validated for women or ethnic groups other than and . MAGNESIUM 09/13/2024 2.2 1.6 - 2.3 MG/DL Final WBC (WHITE BLOOD COUNT) 09/13/2024 5.6 3.6 - 11.0 10*3/uL Final RBC 09/13/2024 4.93 4.0 - 5.4 10*6/uL Final HEMOGLOBIN (HGB) 09/13/2024 15.3 12.0 - 16.0 G/DL Final HEMATOCRIT (HCT) 09/13/2024 45.6 36.0 - 48.0 % Final MEAN CELL VOLUME 09/13/2024 92.4 80.0 - 100.0 FL Final Mean Cell HGB 09/13/2024 31.0 26.0 - 35.0 PG Final MEAN CELL HGB CONCENTRATION 09/13/2024 33.5 27.0 - 37.0 G/DL Final RBC DISTRIBUTION 09/13/2024 14.5 11.5 - 14.5 % Final PLATELET COUNT 09/13/2024 297 130 - 400 10*3/uL Final MEAN PLATELET VOLUME 09/13/2024 7.4 7.4 - 11.0 FL Final DIFFERENTIAL TYPE 09/13/2024 AUTO DIFF % Final NEUTROPHILS 09/13/2024 49.4 37.0 - 75.0 % Final LYMPHOCYTE 09/13/2024 39.8 20.0 - 55.0 % Final MONOCYTE % 09/13/2024 7.3 0.0 - 10.0 % Final EOSINOPHIL % 09/13/2024 2.4 0.0 - 11.0 % Final BASOPHIL % 09/13/2024 1.1 0.0 - 2.0 % Final Absolute Neutrophil Count 09/13/2024 2.8 1.4 - 6.5 10*3/uL Final LYMPHOCYTES, ABSOLUTE 09/13/2024 2.2 1.2 - 3.4 10*3/uL Final MONOCYTES, ABSOLUTE 09/13/2024 0.4 0.0 - 0.7 10*3/uL Final ABSOLUTE EOSINOPHIL COUNT 09/13/2024 0.1 0.0 - 0.7 10*3/uL Final ABSOLUTE BASOPHIL COUNT 09/13/2024 0.1 0.0 - 0.2 10*3/uL Final CREATININE, MG/DL, URINE 09/13/2024 139.4 MG/DL Final NO NORMAL VALUES ESTABLISHED FOR RANDOM SPECIMENS MICROALBUMIN URINE RANDOM 09/13/2024 161.8 (H) 0.0 - 16.7 mg/L Final MICROALBUMIN/CREATININE RATIO 09/13/2024 116.1 (H) 1.3 - 30.0 mg MALB/g CREAT Final PROTEIN MG/DL-URINE 09/13/2024 28 (H) 0 - 12 MG/DL Final CREATININE, MG/DL, URINE 09/13/2024 140.3 MG/DL Final NO NORMAL VALUES ESTABLISHED FOR RANDOM SPECIMENS PROTEIN/CREAT RATIO, URINE 09/13/2024 0.2 Final Comment: REFERENCE RANGES <0.2 NORMAL 0.2-3.5 NON-NEPHROTIC >3.5 NEPHROTIC COLOR, URINE 09/13/2024 YELLOW YELLOW Final APPEARANCE, URINE 09/13/2024 CLEAR CLEAR Final Specific [place], Urine 09/13/2024 1.020 1.010 - 1.025 Final PH URINE 09/13/2024 6.5 5.0 - 7.0 Final Urine Protein 09/13/2024 30 (A) NEGATIVE mg/dl Final GLUCOSE, URINE 09/13/2024 500 (A) NEGATIVE mg/dl Final KETONES, URINE 09/13/2024 NEGATIVE NEGATIVE mg/dl Final BILIRUBIN, URINE 09/13/2024 NEGATIVE NEGATIVE Final BLOOD, URINE DIPSTICK 09/13/2024 NEGATIVE NEGATIVE Final NITRITES, URINE 09/13/2024 NEGATIVE NEGATIVE Final UROBILINOGEN, URINE 09/13/2024 0.2 0.2 - 1.0 E.U./dL Final LEUKOCYTE ESTERASE, URINE 09/13/2024 NEGATIVE NEGATIVE Final SODIUM, URINE RANDOM 09/13/2024 128 (H) 30 - 90 MMOL/L Final WBC, URINE 09/13/2024 NEGATIVE NEGATIVE /HPF Final RBC, URINE 09/13/2024 NEGATIVE NEGATIVE /HPF Final Epithelial Cells UA 09/13/2024 1 TO 5 /HPF Final Mucus 09/13/2024 NEGATIVE NEGATIVE Final BACTERIA, URINE 09/13/2024 NEGATIVE NEGATIVE Final CRYSTALS, URINE 09/13/2024 NONE NONE Final CASTS, URINE 09/13/2024 NONE NONE /LPF Final COMMENT, URINE 09/13/2024 CULTURE CRITERIA NOT MET, NO CULTURE PERFORMED. Final LABS Labs-ABGs @ABGROUNDS@ Labs-CBC @CBCBRIEFROUNDS@ Labs-Chem 7([facility]) @[facility]@ Labs-Coa WBC (WHITE BLOOD COUNT) Date Value Ref Range Status 09/13/2024 5.6 3.6 - 11.0 10*3/uL Final 06/22/2024 5.7 3.6 - 11.0 10*3/uL Final 03/22/2024 6.5 3.6 - 11.0 10*3/uL Final HEMOGLOBIN (HGB) Date Value Ref Range Status 09/13/2024 15.3 12.0 - 16.0 G/DL Final 06/22/2024 15.2 12.0 - 16.0 G/DL Final 03/22/2024 14.4 12.0 - 16.0 G/DL Final HEMATOCRIT (HCT) Date Value Ref Range Status 09/13/2024 45.6 36.0 - 48.0 % Final 06/22/2024 45.1 36.0 - 48.0 % Final 03/22/2024 43.2 36.0 - 48.0 % Final PLATELET COUNT Date Value Ref Range Status 09/13/2024 297 130 - 400 10*3/uL Final 06/22/2024 287 130 - 400 10*3/uL Final 03/22/2024 328 130 - 400 10*3/uL Final SODIUM Date Value Ref Range Status 09/13/2024 139 137 - 145 MMOL/L Final 06/22/2024 140 137 - 145 MMOL/L Final 03/22/2024 139 137 - 145 MMOL/L Final CHLORIDE Date Value Ref Range Status 09/13/2024 108 (H) 98 - 107 MMOL/L Final Comment: Please note: Triglyceride levels of 600mg/dL or higher may positively bias chloride results by approximately 2.1 mmol 06/22/2024 110 (H) 98 - 107 MMOL/L Final Comment: Please note: Triglyceride levels of 600mg/dL or higher may positively bias chloride results by approximately 2.1 mmol 03/22/2024 111 (H) 98 - 107 MMOL/L Final Comment: Please note: Triglyceride levels of 600mg/dL or higher may positively bias chloride results by approximately 2.1 mmol BUN Date Value Ref Range Status 09/13/2024 16 7 - 20 MG/DL Final 06/22/2024 21 (H) 7 - 20 MG/DL Final 03/22/2024 17 7 - 20 MG/DL Final Potassium Date Value Ref Range Status 09/13/2024 4.1 3.5 - 5.1 MMOL/L Final 06/22/2024 4.2 3.5 - 5.1 MMOL/L Final 03/22/2024 4.2 3.5 - 5.1 MMOL/L Final CREATININE SERUM Date Value Ref Range Status 09/13/2024 1.68 (H) 0.70 - 1.20 MG/DL Final 06/22/2024 1.49 (H) 0.70 - 1.20 MG/DL Final 03/22/2024 1.73 (H) 0.70 - 1.20 MG/DL Final Glucose Date Value Ref Range Status 09/13/2024 88 70 - 100 MG/DL Final Comment: NORMAL <100 mg/dL PREDIABETES 101-126 mg/dL DIABETES 126 mg/dL or higher 06/22/2024 80 70 - 100 MG/DL Final Comment: NORMAL <100 mg/dL PREDIABETES 101-126 mg/dL DIABETES 126 mg/dL or higher 03/22/2024 91 70 - 100 MG/DL Final Comment: NORMAL <100 mg/dL PREDIABETES 101-126 mg/dL DIABETES 126 mg/dL or higher PROTEIN, TOTAL Date Value Ref Range Status 01/16/2023 7.0 6.3 - 8.2 GM/DL Final 09/09/2022 6.7 6.3 - 8.2 GM/DL Final Albumin Date Value Ref Range Status 09/13/2024 4.3 3.5 - 5.0 G/dl Final 06/22/2024 4.3 3.5 - 5.0 G/dl Final 03/22/2024 4.1 3.5 - 5.0 G/dl Final AST Date [...] Final CALCIUM Date Value Ref Range Status 09/13/2024 10.0 8.4 - 10.2 MG/DL Final 06/22/2024 9.9 8.4 - 10.2 MG/DL Final 03/22/2024 9.5 8.4 - 10.2 MG/DL Final PHOSPHORUS Date Value Ref Range Status 09/13/2024 3.6 2.5 - 4.5 MG/DL Final 06/22/2024 3.7 2.5 - 4.5 MG/DL Final 03/22/2024 3.7 2.5 - 4.5 MG/DL Final MAGNESIUM Date Value Ref Range Status 09/13/2024 2.2 1.6 - 2.3 MG/DL Final 06/22/2024 2.4 (H) 1.6 - 2.3 MG/DL Final 03/22/2024 2.1 1.6 - 2.3 MG/DL Final Lab Results Component Value Date CREATURINE 139.4 09/13/2024 CREATURINE 140.3 09/13/2024 CREATSERUM 1.68 (H) 09/13/2024 BUN 16 09/13/2024 SODIUM 139 09/13/2024 POTASSIUM 4.1 09/13/2024 CHLORIDE 108 (H) 09/13/2024 CO2 28 09/13/2024 ROS: Constitution: No fever, no chill HEENT: No headache, no sinus issues CV: No chest pain, no palpitation Lung: No cough, No SOB Abd: No diarrhea, no constipation Neuro: No seizure, no loss of consciousness Heme: No bleeding, no bruise PHYSICAL EXAM: Wt Readings from Last 3 Encounters: 09/16/24 74.4 kg (164 lb) 07/26/24 74.7 kg (164 lb 9.6 oz) 06/28/24 74.8 kg (164 lb 12.8 oz) Temp Readings from Last 3 Encounters: 07/26/24 97.6 F (36.4 C) (Temporal) 07/02/24 98.1 F (36.7 C) (Oral) 03/26/24 97.7 F (36.5 C) (Temporal) BP Readings from Last 3 Encounters: 09/16/24 134/86 07/02/24 171/88 06/24/24 124/62 Pulse Readings from Last 3 Encounters: 07/02/24 68 06/24/24 66 03/24/24 66 Gen: NAD, lying in bed, conversant HEENT: Atraumatic, PERRLA, moist membrane CV: RRR, nl S1 and S2, no m/g/r Lung: CTAB, no wheezing, no crackle Abd: +BS, nontender, no distended Ext: No rash, no clubbing, no cyanosis. No edema. Neuro: CNII-XII grossly intact, 5/5 strength, normal tone Skin: Warm and dry documented in this encounter [facility] 07-26-2024 History of Presen t illness Narrative Chief Complaint Patient presents with Left Knee - Pain, Follow-up Pain Duration: 1+ yr. Factors That Aggravate Pain: activity Factors That Relieve Pain: rest Here for office visit and re-evaluation of left knee. Avoid oral NSAIDS due to CKD. She reports that her daily life is being disrupted due to pain and catching. She received a [employer] injection in the left knee on 06/28/24 which gave her about two weeks relief. Worsening pain lately. IMPRESSION/PLAN: MRI left knee 02/03/24 1. No acute displaced fracture or dislocation of the left knee. 2. 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 3. Very subtle blunting of the free edge of the body segment of the left medial meniscus, possibly subtle radial tear. The left lateral meniscus is intact. 4. Intact left knee cruciate and collateral ligaments. Mild thickening of the proximal left medial collateral ligament may be sequela of prior sprain. 5. Trace left knee effusion without large popliteal cyst. Medical decision making has been discussed with patient including potential further work-up, surgical and non-surgical options. I feel it is advisable for her to consult with Dr. Cross regarding arthroscopic surgery due to the problematic catching. Azeb is reluctant about surgery and does not want a knee arthroplasty. Medication management: Continue current Follow-up in As needed with me Visit Vitals Ht 1.6 m (5' 3") BMI 29.19 kg/m *Time components listed in minutes below. This data may or may not be needed for insurance reimbursement purposes. Reviewing clinical note(s) from previous visit/ER/urgent care/PCP/other specialists 4 Review of medical history 4 Review of medical surgery nurse or green jobs trainer note 4 Independently obtain and review medical history and history of present illness with patient 4 Other counseling and coordination of care 7 Updating patient chart, documentation of clinical encounter and signing of orders 7 Medication ordering and discussion of risks, benefits and alternatives 3 Independent review of previous imaging 4 Review of pertinent labs 3 Communicating and/or referring to other specialist 2 *Portions of this note may have been created with Elias Borges [employer], other software, or a scribe, which leads to grammatical and typographical errors which are not product sales representative of the intent with my spoken words. Chief Complaint Patient presents with Left Knee - Pain, Follow-up Pain Duration: 1+ yr. Factors That Aggravate Pain: activity Factors That Relieve Pain: rest Here for office visit and re-evaluation of left knee. She reports that her daily life is being disrupted due to pain and catching. She received a [employer] injection in the left knee on 06/28/24 which gave her about two weeks relief. Worsening pain lately. IMPRESSION/PLAN: MRI left knee 02/03/24 1. No acute displaced fracture or dislocation of the left knee. 2. 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 3. Very subtle blunting of the free edge of the body segment of the left medial meniscus, possibly subtle radial tear. The left lateral meniscus is intact. 4. Intact left knee cruciate and collateral ligaments. Mild thickening of the proximal left medial collateral ligament may be sequela of prior sprain. 5. Trace left knee effusion without large popliteal cyst. Medical decision making has been discussed with patient including potential further work-up, surgical and non-surgical options. I feel it is advisable for her to consult with Dr. Cross regarding arthroscopic surgery due to the problematic catching. Azeb is reluctant about surgery and does not want a knee arthroplasty. Medication management: . Avoid oral NSAIDS due to CKD. Has a muscle relaxer and Topical Voltaren. Follow-up in As needed with me Visit Vitals Ht 1.6 m (5' 3") BMI 29.19 kg/m *Time components listed in minutes below. This data may or may not be needed for insurance reimbursement purposes. Reviewing clinical note(s) from previous visit/ER/urgent care/PCP/other specialists 4 Review of medical history 4 Review of medical surgery nurse or green jobs trainer note 4 Independently obtain and review medical history and history of present illness with patient 4 Other counseling and coordination of care 7 Updating patient chart, documentation of clinical encounter and signing of orders 7 *Portions of this note may have been created with Elias Borges [employer], other software, or a scribe, which leads to grammatical and typographical errors which are not product sales representative of the intent with my spoken words. Clinical office clerk assistant/AT/MA was acting as a scribe today [...] Debra Max DO documented in this encounter [facility] 07-02-2024 Emergency department Note Discharge instructions given. Verbalized understanding. Home alert and oriented with upright steady gait. Pt offered wheelchair. Refused. [facility] 07-02-2024 Emergency department Note Discharge instructions given. Verbalized understanding. Home alert and oriented with upright steady gait. Pt offered wheelchair. Refused. Pt to radiology per cart. Emergency Department Report [facility] EMERGENCY DEPARTMENT Service Date:.07/02/24 PCP: Rehana Hernandez Chief Complaint: Chief Complaint Patient presents with Head Injury Pt was struck in the right temporal region of the head earlier today by some closet doors that were loose from the wall. Pt.complains of head pain since. Denies loss of consciousness at the time. Pt complains of right shoulder/neck pain as well. Head Pain HPI Azeb Hutchison is a 58 y.o. female presents to the ED today due to head injury at 9:00 a.m. this morning. She was hit by doors which were leaning gets the wall. He was shoulder and her head but not her neck. She has pain in the right temporal region and feels nauseated. The right shoulder is also tender over the clavicle region posteriorly. There was no other pain or injury. Review of Systems: Review of Systems Constitutional symptoms: no Fatigue, no fever, no chills. Skin symptoms: Negative except as documented in HPI. ENMT symptoms: Negative except as documented in HPI. Respiratory symptoms: Negative except as documented in HPI. Cardiovascular symptoms: Negative except as documented in HPI. Gastrointestinal symptoms: Negative except for documented as above in the HPI Genitourinary symptoms: Negative except as documented in HPI. Musculoskeletal symptoms: Negative except as documented in HPI. Right shoulder pain Neurologic symptoms: Negative except as documented in HPI. Headache and nausea Remainder of 10 systems, all negative except for mentioned above Past Medical History: Past Medical History: Diagnosis [...] Prescriptions No medications on file Previous Medications DAPAGLIFLOZIN (FARXIGA) 10 MG TABLET Take 1 tablet by mouth daily. LEVALBUTEROL 1.25 MG/3ML NEBU SOLN TAFLUPROST, PF, 0.0015 % SOLUTION INSTILL 1 DROP INTO BOTH EYES EVERY EVENING DIRECTED TIZANIDINE 4 MG TABLET Take one tablet by mouth, at bedtime for muscle spasms. Modified Medications No medications on file Discontinued [...] Former Smokeless tobacco: Never Vaping Use Vaping status: Never Used Substance and Sexual Activity Alcohol [...] Not on file Physical Exam: Physical Exam CONST: -Well-developed well-nourished ; -In no acute distress. -Vitals reviewed. EYES: -EOM intact, TOOTIE: -Sclera normal and conjunctiva: clear bilaterally. ENT: - Normal pharynx pink and moist. NECK: -Supple ([id number]). CARD: -Rate and rhythm: Regular -Murmurs: No RESP: -Respiratory effort and chest excursion with respirations: Normal -Breath sounds equal bilaterally: Clear -Wheezes: No -Rales: No BACK: -Flank pain: No -Pain on palpation: No ABD: -Distended: No -Bruits: No -Bowel sounds: Normal. -Deep palpation: Non-tender -Organomegaly palpable: No -Abnormal masses: No EXT: Gross appearance and use of all four extremities: Right shoulder has posteriorly tender over the clavicle, mid shaft. There is no midline spinous tenderness but there was mild paraspinous spasm right cervical 5 region. There is some tenderness in the right temporal region. SKIN: -Good turgor warm and dry. -Apparent lesions or rashes: No NEURO: Patient is alert and oriented x 3, fluent appropriate speech, calculation, concentration, memory intact. Cranial nerve two through 12 are intact, there is no motor or sensory deficit, reflexes symmetrical. Vital Signs During ED Visit Patient Vitals for the past 24 hrs: BP Temp Temp src Pulse Resp SpO2 Height 07/02/24 0010 -- -- -- -- -- -- 1.6 m (5' 3") 07/02/24 0008 180/85 98.1 F (36.7 C) Oral 64 14 98 % -- Orders/Results: Orders Placed This Encounter CT HEAD WITHOUT CONTRAST XR SHOULDER RIGHT 2+ VIEWS DISCONTD: ketorolac (TORADOL) injection 60 mg Acetaminophen (TYLENOL) tablet 650 mg hydroCODone-acetaminophen (NORCO) 5-325 MG per tablet 1 tablet Results for orders placed or performed in visit on 06/22/24 RENAL FUNCTION PANEL Result Value Ref Range Glucose 80 70 - 100 MG/DL BUN 21 (H) 7 - 20 MG/DL CREATININE SERUM 1.49 (H) 0.70 - 1.20 MG/DL SODIUM 140 137 - 145 MMOL/L POTASSIUM 4.2 3.5 - 5.1 MMOL/L CHLORIDE 110 (H) 98 - 107 MMOL/L CARBON DIOXIDE (CO2) 23 22 - 30 MMOL/L Albumin 4.3 3.5 - 5.0 G/dl CALCIUM 9.9 8.4 - 10.2 MG/DL PHOSPHORUS 3.7 2.5 - 4.5 MG/DL ESTIMATED GFR, NON AMER 38 ml/min/1.73sq.m ESTIMATED GFR, 46 ml/min/1.73sq.m GFR COMMENT Average GFR for 60-69 years old = 85. MAGNESIUM Result Value Ref Range MAGNESIUM 2.4 (H) 1.6 - 2.3 MG/DL CBC, EDIF, PLATELET Result Value Ref Range WBC (WHITE BLOOD COUNT) 5.7 3.6 - 11.0 10*3/uL RBC 4.91 4.0 - 5.4 10*6/uL HEMOGLOBIN (HGB) 15.2 12.0 - 16.0 G/DL HEMATOCRIT (HCT) 45.1 36.0 - 48.0 % MEAN CELL VOLUME 91.9 80.0 - 100.0 FL Mean Cell HGB 31.0 26.0 - 35.0 PG MEAN CELL HGB CONCENTRATION 33.8 27.0 - 37.0 G/DL RBC DISTRIBUTION 14.4 11.5 - 14.5 % PLATELET COUNT 287 130 - 400 10*3/uL MEAN PLATELET VOLUME 7.1 (L) 7.4 - 11.0 FL DIFFERENTIAL TYPE AUTO DIFF % NEUTROPHILS 58.6 37.0 - 75.0 % LYMPHOCYTE 30.6 20.0 - 55.0 % MONOCYTE % 7.7 0.0 - 10.0 % EOSINOPHIL % 2.3 0.0 - 11.0 % BASOPHIL % 0.8 0.0 - 2.0 % Absolute Neutrophil Count 3.4 1.4 - 6.5 10*3/uL LYMPHOCYTES, ABSOLUTE 1.8 1.2 - 3.4 10*3/uL MONOCYTES, ABSOLUTE 0.4 0.0 - 0.7 10*3/uL ABSOLUTE EOSINOPHIL COUNT 0.1 0.0 - 0.7 10*3/uL ABSOLUTE BASOPHIL COUNT 0.0 0.0 - 0.2 10*3/uL MICROALBUMIN/CREATININE RATIO Result Value Ref Range CREATININE, MG/DL, URINE 99.4 MG/DL MICROALBUMIN URINE RANDOM 143.6 (H) 0.0 - 16.7 mg/L MICROALBUMIN/CREATININE RATIO 144.5 (H) 1.3 - 30.0 mg MALB/g CREAT URINE PROTEIN/CREA RATIO, RANDOM Result Value Ref Range PROTEIN MG/DL-URINE 28 (H) 0 - 12 MG/DL CREATININE, MG/DL, URINE 99.3 MG/DL PROTEIN/CREAT RATIO, URINE 0.3 URINALYSIS, MACRO Result Value Ref Range COLOR, URINE YELLOW YELLOW APPEARANCE, URINE CLEAR CLEAR Specific [place], Urine 1.025 1.010 - 1.025 PH URINE 5.5 5.0 - 7.0 Urine Protein TRACE (A) NEGATIVE mg/dl GLUCOSE, URINE NEGATIVE NEGATIVE mg/dl KETONES, URINE NEGATIVE NEGATIVE mg/dl BILIRUBIN, URINE NEGATIVE NEGATIVE BLOOD, URINE DIPSTICK TRACE-LYSED (A) NEGATIVE NITRITES, URINE NEGATIVE NEGATIVE UROBILINOGEN, URINE 0.2 0.2 - 1.0 E.U./dL LEUKOCYTE ESTERASE, URINE NEGATIVE NEGATIVE SODIUM, RANDOM URINE Result Value Ref Range SODIUM, URINE RANDOM 155 (H) 30 - 90 MMOL/L URINE MICROSCOPIC Result Value Ref Range WBC, URINE NEGATIVE NEGATIVE /HPF RBC, URINE 1 TO 5 NEGATIVE /HPF Epithelial Cells UA NONE /HPF Mucus NEGATIVE NEGATIVE BACTERIA, URINE TRACE (A) NEGATIVE CRYSTALS, URINE NONE NONE CASTS, URINE NONE NONE /LPF COMMENT, URINE CULTURE CRITERIA NOT MET, NO CULTURE PERFORMED. Radiographic Imaging CT HEAD WITHOUT CONTRAST Final Result IMPRESSION: 1. No acute intracranial abnormality. No hemorrhage or mass effect. 2. Vascular calcification. XR SHOULDER RIGHT 2+ VIEWS Final Result IMPRESSION: 1. No acute fracture or dislocation of the right shoulder is seen. If there is concern for internal derangement, a nonemergent outpatient MRI is recommended. Procedures: Procedures Moderate Sedation Procedure: No ED Summary/MDM Subdural, epidural, intraparenchymal bleed, skull fracture all considered and ruled out via CT brain. Fracture of the shoulder considered and ruled out via plain films. There is some tenderness to the face, not commensurate with acute fracture in my view. She will return in a week for further studies if not improved Clinical Impression: 1. Contusion of scalp, initial encounter 2. Contusion of right shoulder, initial encounter 3. Strain of neck muscle, initial encounter 4. Contusion of face, initial encounter No follow-ups on file. New Prescriptions No medications on file Discontinued Medications No medications on file An After Visit Summary was printed and given to the patient with above information. . . Lizbeth Up MD 07/02/24 0155 C-collar fitted and applied to the patient. Pt tolerated well. documented in this encounter [facility] 07-02-2024 Hospital Discharg e instructions Lizbeth Up MD - 07/02/2024 1:54 AM EDT See For severe increasing headache. See your doctor if you are still having severe pain in 1 week. Tylenol for moderate pain. The following attachments cannot be sent through Care Everywhere.Head Injury (Moroccan)Contusion (Moroccan)documented in this encounter [facility] 07-02-2024 Emergency department Note Pt to radiology per cart. [facility] 07-02-2024 Physician Emergency department Note Emergency Department Report [facility] EMERGENCY DEPARTMENT Service Date:.07/02/24 PCP: Rehana Hernandez Chief Complaint: Chief Complaint Patient presents with Head Injury Pt was struck in the right temporal region of the head earlier today by some closet doors that were loose from the wall. Pt.complains of head pain since. Denies loss of consciousness at the time. Pt complains of right shoulder/neck pain as well. Head Pain HPI Azeb Hutchison is a 58 y.o. female presents to the ED today due to head injury at 9:00 a.m. this morning. She was hit by doors which were leaning gets the wall. He was shoulder and her head but not her neck. She has pain in the right temporal region and feels nauseated. The right shoulder is also tender over the clavicle region posteriorly. There was no other pain or injury. Review of Systems: Review of Systems Constitutional symptoms: no Fatigue, no fever, no chills. Skin symptoms: Negative except as documented in HPI. ENMT symptoms: Negative except as documented in HPI. Respiratory symptoms: Negative except as documented in HPI. Cardiovascular symptoms: Negative except as documented in HPI. Gastrointestinal symptoms: Negative except for documented as above in the HPI Genitourinary symptoms: Negative except as documented in HPI. Musculoskeletal symptoms: Negative except as documented in HPI. Right shoulder pain Neurologic symptoms: Negative except as documented in HPI. Headache and nausea Remainder of 10 systems, all negative except for mentioned above Past Medical History: Past Medical History: Diagnosis [...] Prescriptions No medications on file Previous Medications DAPAGLIFLOZIN (FARXIGA) 10 MG TABLET Take 1 tablet by mouth daily. LEVALBUTEROL 1.25 MG/3ML NEBU SOLN TAFLUPROST, PF, 0.0015 % SOLUTION INSTILL 1 DROP INTO BOTH EYES EVERY EVENING DIRECTED TIZANIDINE 4 MG TABLET Take one tablet by mouth, at bedtime for muscle spasms. Modified Medications No medications on file Discontinued [...] Former Smokeless tobacco: Never Vaping Use Vaping status: Never Used Substance and Sexual Activity Alcohol [...] Not on file Physical Exam: Physical Exam CONST: -Well-developed well-nourished ; -In no acute distress. -Vitals reviewed. EYES: -EOM intact, TOOTIE: -Sclera normal and conjunctiva: clear bilaterally. ENT: - Normal pharynx pink and moist. NECK: -Supple ([id number]). CARD: -Rate and rhythm: Regular -Murmurs: No RESP: -Respiratory effort and chest excursion with respirations: Normal -Breath sounds equal bilaterally: Clear -Wheezes: No -Rales: No BACK: -Flank pain: No -Pain on palpation: No ABD: -Distended: No -Bruits: No -Bowel sounds: Normal. -Deep palpation: Non-tender -Organomegaly palpable: No -Abnormal masses: No EXT: Gross appearance and use of all four extremities: Right shoulder has posteriorly tender over the clavicle, mid shaft. There is no midline spinous tenderness but there was mild paraspinous spasm right cervical 5 region. There is some tenderness in the right temporal region. SKIN: -Good turgor warm and dry. -Apparent lesions or rashes: No NEURO: Patient is alert and oriented x 3, fluent appropriate speech, calculation, concentration, memory intact. Cranial nerve two through 12 are intact, there is no motor or sensory deficit, reflexes symmetrical. Vital Signs During ED Visit Patient Vitals for the past 24 hrs: BP Temp Temp src Pulse Resp SpO2 Height 07/02/24 0010 -- -- -- -- -- -- 1.6 m (5' 3") 07/02/24 0008 180/85 98.1 F (36.7 C) Oral 64 14 98 % -- Orders/Results: Orders Placed This Encounter CT HEAD WITHOUT CONTRAST XR SHOULDER RIGHT 2+ VIEWS DISCONTD: ketorolac (TORADOL) injection 60 mg Acetaminophen (TYLENOL) tablet 650 mg hydroCODone-acetaminophen (NORCO) 5-325 MG per tablet 1 tablet Results for orders placed or performed in visit on 06/22/24 RENAL FUNCTION PANEL Result Value Ref Range Glucose 80 70 - 100 MG/DL BUN 21 (H) 7 - 20 MG/DL CREATININE SERUM 1.49 (H) 0.70 - 1.20 MG/DL SODIUM 140 137 - 145 MMOL/L POTASSIUM 4.2 3.5 - 5.1 MMOL/L CHLORIDE 110 (H) 98 - 107 MMOL/L CARBON DIOXIDE (CO2) 23 22 - 30 MMOL/L Albumin 4.3 3.5 - 5.0 G/dl CALCIUM 9.9 8.4 - 10.2 MG/DL PHOSPHORUS 3.7 2.5 - 4.5 MG/DL ESTIMATED GFR, NON AMER 38 ml/min/1.73sq.m ESTIMATED GFR, 46 ml/min/1.73sq.m GFR COMMENT Average GFR for 60-69 years old = 85. MAGNESIUM Result Value Ref Range MAGNESIUM 2.4 (H) 1.6 - 2.3 MG/DL CBC, EDIF, PLATELET Result Value Ref Range WBC (WHITE BLOOD COUNT) 5.7 3.6 - 11.0 10*3/uL RBC 4.91 4.0 - 5.4 10*6/uL HEMOGLOBIN (HGB) 15.2 12.0 - 16.0 G/DL HEMATOCRIT (HCT) 45.1 36.0 - 48.0 % MEAN CELL VOLUME 91.9 80.0 - 100.0 FL Mean Cell HGB 31.0 26.0 - 35.0 PG MEAN CELL HGB CONCENTRATION 33.8 27.0 - 37.0 G/DL RBC DISTRIBUTION 14.4 11.5 - 14.5 % PLATELET COUNT 287 130 - 400 10*3/uL MEAN PLATELET VOLUME 7.1 (L) 7.4 - 11.0 FL DIFFERENTIAL TYPE AUTO DIFF % NEUTROPHILS 58.6 37.0 - 75.0 % LYMPHOCYTE 30.6 20.0 - 55.0 % MONOCYTE % 7.7 0.0 - 10.0 % EOSINOPHIL % 2.3 0.0 - 11.0 % BASOPHIL % 0.8 0.0 - 2.0 % Absolute Neutrophil Count 3.4 1.4 - 6.5 10*3/uL LYMPHOCYTES, ABSOLUTE 1.8 1.2 - 3.4 10*3/uL MONOCYTES, ABSOLUTE 0.4 0.0 - 0.7 10*3/uL ABSOLUTE EOSINOPHIL COUNT 0.1 0.0 - 0.7 10*3/uL ABSOLUTE BASOPHIL COUNT 0.0 0.0 - 0.2 10*3/uL MICROALBUMIN/CREATININE RATIO Result Value Ref Range CREATININE, MG/DL, URINE 99.4 MG/DL MICROALBUMIN URINE RANDOM 143.6 (H) 0.0 - 16.7 mg/L MICROALBUMIN/CREATININE RATIO 144.5 (H) 1.3 - 30.0 mg MALB/g CREAT URINE PROTEIN/CREA RATIO, RANDOM Result Value Ref Range PROTEIN MG/DL-URINE 28 (H) 0 - 12 MG/DL CREATININE, MG/DL, URINE 99.3 MG/DL PROTEIN/CREAT RATIO, URINE 0.3 URINALYSIS, MACRO Result Value Ref Range COLOR, URINE YELLOW YELLOW APPEARANCE, URINE CLEAR CLEAR Specific [place], Urine 1.025 1.010 - 1.025 PH URINE 5.5 5.0 - 7.0 Urine Protein TRACE (A) NEGATIVE mg/dl GLUCOSE, URINE NEGATIVE NEGATIVE mg/dl KETONES, URINE NEGATIVE NEGATIVE mg/dl BILIRUBIN, URINE NEGATIVE NEGATIVE BLOOD, URINE DIPSTICK TRACE-LYSED (A) NEGATIVE NITRITES, URINE NEGATIVE NEGATIVE UROBILINOGEN, URINE 0.2 0.2 - 1.0 E.U./dL LEUKOCYTE ESTERASE, URINE NEGATIVE NEGATIVE SODIUM, RANDOM URINE Result Value Ref Range SODIUM, URINE RANDOM 155 (H) 30 - 90 MMOL/L URINE MICROSCOPIC Result Value Ref Range WBC, URINE NEGATIVE NEGATIVE /HPF RBC, URINE 1 TO 5 NEGATIVE /HPF Epithelial Cells UA NONE /HPF Mucus NEGATIVE NEGATIVE BACTERIA, URINE TRACE (A) NEGATIVE CRYSTALS, URINE NONE NONE CASTS, URINE NONE NONE /LPF COMMENT, URINE CULTURE CRITERIA NOT MET, NO CULTURE PERFORMED. Radiographic Imaging CT HEAD WITHOUT CONTRAST Final Result IMPRESSION: 1. No acute intracranial abnormality. No hemorrhage or mass effect. 2. Vascular calcification. XR SHOULDER RIGHT 2+ VIEWS Final Result IMPRESSION: 1. No acute fracture or dislocation of the right shoulder is seen. If there is concern for internal derangement, a nonemergent outpatient MRI is recommended. Procedures: Procedures Moderate Sedation Procedure: No ED Summary/MDM Subdural, epidural, intraparenchymal bleed, skull fracture all considered and ruled out via CT brain. Fracture of the shoulder considered and ruled out via plain films. There is some tenderness to the face, not commensurate with acute fracture in my view. She will return in a week for further studies if not improved Clinical Impression: 1. Contusion of scalp, initial encounter 2. Contusion of right shoulder, initial encounter 3. Strain of neck muscle, initial encounter 4. Contusion of face, initial encounter No follow-ups on file. New Prescriptions No medications on file Discontinued Medications No medications on file An After Visit Summary was printed and given to the patient with above information. . . Lizbeth Up MD 07/02/24 0155 [facility] 07-02-2024 Emergency department Note C-collar fitted and applied to the patient. Pt tolerated well. [facility] 06-28-2024 History of Presen t illness Narrative Associated Order(s): LARGE JOINT/BURSA INJECTION AND/OR ASPIRATION: L knee Post-Procedure Diagnose(s): Primary osteoarthritis of left knee; Chronic pain of left knee Chief Complaint Patient presents with Left Knee - Pain, Follow-up Pain Radiation To: left thigh Pain Duration: over a brie Pain Frequency: constant Pain Quality: aching, throbbing, tightness (instability with ambulation) Factors That Aggravate Pain: activity (weight bearing activity, prolonged sitting) Factors That Relieve Pain: cold, other (see comments) (topical diclofenac) Monika is a 58 year old female who is here for an office re-evaulation. 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 Last one on 03/05/24. Patient reports pain keeping her up at night. She states pain increases a lot positionally when laying down. IMPRESSION/PLAN: MRI left knee from 02/03/24 reviewed by me and that demonstrates 1. No acute displaced fracture or dislocation of the left knee. 2. 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 3. Very subtle blunting of the free edge of the body segment of the left medial meniscus, possibly subtle radial tear. The left lateral meniscus is intact. 4. Intact left knee cruciate and collateral ligaments. Mild thickening of the proximal left medial collateral ligament may be sequela of prior sprain. 5. Trace left knee effusion without large popliteal cyst. Medical decision making has been discussed with patient including potential further work-up, surgical and non-surgical options. I discussed options regarding arthroscopic surgery and introduced my colleague Dr. Cross whom I would be referring. We elected to move forward with a [employer] injection today. We will continue to treat in this way for as long as she responds. When she is ready to move forward with orthopedic surgery we will make the referral. Continue current conservative treatment. Medication management: Refilled Tizanadine Injection/(s) performed after discussing risks, benefits and alternatives. See procedure note. The patient understands that this procedure is elective. They presented today for a billable office encounter. The office visit today involved evaluation or re-evaluation of their orthopedic condition(s) and any other medical problem which could influence today's orthopedic medical decision making. The mutual decision to perform injection(s) was made after careful clinical evaluation or re-evaluation of the patient's clinical status, including, but not limited to severity or worsening pattern of pain and/or function, and response to any previous treatment. Other variables can influence medical decision making which may result in a decision to inject or not to inject. These variables may include decision for surgery, improving symptoms, development of other medical problems which make performing an injection an unfavorable choice, patient preference or many other factors. The documentation for procedure billing is listed in the procedure note. The documentation to substantiate the appropriate evaluation and management level of service office code is documented separately. Follow-up in 3 months for office visit re-evaluation. KNEE EXAM LEFT RIGHT Inspection No effusion. No deformity. No effusion. No deformity. Paltation No tenderness to palpation. No tenderness to palpation. ROM 0-90 degrees with crepitus 0-130 degrees Strength 5/5 in flexion & extension 5/5 in flexion and extension Gait: Non-antalgic Visit Vitals Ht 1.6 m (5' 3") Wt 74.8 kg (164 lb 12.8 oz) BMI 29.19 kg/m LARGE JOINT/BURSA INJECTION AND/OR ASPIRATION: L knee Date/Time: 06/28/2024 11:15 AM Performed by: Debra Max DO Authorized by: Debra Max DO Supporting Documentation Indications: pain Procedure Details: Location: knee - L knee Local Anesthetic: lidocaine 1% and ethyl chloride (cold spray) Total Local Anesthetic: 3 mLs Needle size: 22 G Medication Verification: I have personally verified and performed the final check of the medication(s) used in this procedure prior to administration. The following items were included during the verification process for medication(s) administered: drug name, strength, volume, expiration, physical integrity and appearance of the medication(s). Medications administered: 1 mL triamcinolone 40 MG/ML Patient tolerance: patient tolerated the procedure well with no immediate complications Consent: Consent was obtained prior to the procedure after discussion of the risks, benefits and alternatives, and expected outcomes were discussed with the patient. The possibilities of reaction to medication, bleeding, infection, the need for additional procedures, failure to diagnosis a condition, and creating a complication requiring operation were discussed with the patient. The patient concurred with the proposed plan, giving consent. Preparation: Patient was prepped in the usual sterile fashion. The patient was prepped with alcohol and Betadine. . *Time components listed in minutes below. This data may or may not be needed for insurance reimbursement purposes. Reviewing clinical note(s) from previous visit/ER/urgent care/PCP/other specialists 4 Review of medical history 4 Review of medical surgery nurse or green jobs trainer note 4 Independently obtain and review medical history and history of present illness with patient 4 Other counseling and coordination of care 7 Updating patient chart, documentation of clinical encounter and signing of orders 7 Medication ordering and discussion of risks, benefits and alternatives 3 PT ordering and discussion of expectations including proper progression 3 Independent review of previous imaging 4 Review of pertinent labs 3 Communicating and/or referring to other specialist 2 *Portions of this note may have been created with [employer], other software, or a scribe, which leads to grammatical and typographical errors which are not product sales representative of the intent with my spoken words. Chief Complaint Patient presents with Left Knee - Pain, Follow-up Pain Radiation To: left thigh Pain Duration: over a brie Pain Frequency: constant Pain Quality: aching, throbbing, tightness (instability with ambulation) Factors That Aggravate Pain: activity (weight bearing activity, prolonged sitting) Factors That Relieve Pain: cold, other (see comments) (topical diclofenac) Monika is a 58 year old female who is here for an office re-evaulation. 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 Last one on 03/05/24. Patient reports pain keeping her up at night. She states pain increases a lot positionally when laying down. IMPRESSION/PLAN: MRI left knee from 02/03/24 reviewed by me and that demonstrates 1. No acute displaced fracture or dislocation of the left knee. 2. 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 3. Very subtle blunting of the free edge of the body segment of the left medial meniscus, possibly subtle radial tear. The left lateral meniscus is intact. 4. Intact left knee cruciate and collateral ligaments. Mild thickening of the proximal left medial collateral ligament may be sequela of prior sprain. 5. Trace left knee effusion without large popliteal cyst. Medical decision making has been discussed with patient including potential further work-up, surgical and non-surgical options. I discussed options regarding arthroscopic surgery and introduced my colleague Dr. Cross whom I would be referring. We elected to move forward with a [employer] injection today. We will continue to treat in this way for as long as she responds. When she is ready to move forward with orthopedic surgery we will make the referral. Continue current conservative treatment. Medication management: Refilled Tizanadine Injection/(s) performed after discussing risks, benefits and alternatives. See procedure note. The patient understands that this procedure is elective. They presented today for a billable office encounter. The office visit today involved evaluation or re-evaluation of their orthopedic condition(s) and any other medical problem which could influence today's orthopedic medical decision making. The mutual decision to perform injection(s) was made after careful clinical evaluation or re-evaluation of the patient's clinical status, including, but not limited to severity or worsening pattern of pain and/or function, and response to any previous treatment. Other variables can influence medical decision making which may result in a decision to inject or not to inject. These variables may include decision for surgery, improving symptoms, development of other medical problems which make performing an injection an unfavorable choice, patient preference or many other factors. The documentation for procedure billing is listed in the procedure note. The documentation to substantiate the appropriate evaluation and management level of service office code is documented separately. Follow-up in 1 month for office visit re-evaluation. KNEE EXAM LEFT RIGHT Inspection No effusion. No deformity. No effusion. No deformity. Paltation No tenderness to palpation. No tenderness to palpation. ROM 0-90 degrees with crepitus 0-130 degrees Strength 5/5 in flexion & extension 5/5 in flexion and extension Gait: Non-antalgic Visit Vitals Ht 1.6 m (5' 3") Wt 74.8 kg (164 lb 12.8 oz) BMI 29.19 kg/m LARGE JOINT/BURSA INJECTION AND/OR ASPIRATION: L knee Date/Time: 06/28/2024 11:15 AM Performed by: Debra Max DO Authorized by: Debra Max DO Supporting Documentation Indications: pain Procedure Details: Location: knee - L knee Local Anesthetic: lidocaine 1% and ethyl chloride (cold spray) Total Local Anesthetic: 3 mLs Needle size: 22 G Medication Verification: I have personally verified and performed the final check of the medication(s) used in this procedure prior to administration. The following items were included during the verification process for medication(s) administered: drug name, strength, volume, expiration, physical integrity and appearance of the medication(s). Medications administered: 1 mL triamcinolone 40 MG/ML Patient tolerance: patient tolerated the procedure well with no immediate complications Consent: Consent was obtained prior to the procedure after discussion of the risks, benefits and alternatives, and expected outcomes were discussed with the patient. The possibilities of reaction to medication, bleeding, infection, the need for additional procedures, failure to diagnosis a condition, and creating a complication requiring operation were discussed with the patient. The patient concurred with the proposed plan, giving consent. Preparation: Patient was prepped in the usual sterile fashion. The patient was prepped with alcohol and Betadine. . *Time components listed in minutes below. This data may or may not be needed for insurance reimbursement purposes. Reviewing clinical note(s) from previous visit/ER/urgent care/PCP/other specialists 4 Review of medical history 4 Review of medical surgery nurse or green jobs trainer note 4 Independently obtain and review medical history and history of present illness with patient 4 Other counseling and coordination of care 7 Updating patient chart, documentation of clinical encounter and signing of orders 7 Medication ordering and discussion of risks, benefits and alternatives 3 PT ordering and discussion of expectations including proper progression 3 Independent review of previous imaging 4 Review of pertinent labs 3 Communicating and/or referring to other specialist 2 *Portions of this note may have been created with [employer], other software, or a scribe, which leads to grammatical and typographical errors which are not product sales representative of the intent with my spoken words. Clinical office clerk assistant/AT/MA was acting as a scribe today [...] Debra Max DO documented in this encounter [facility] 06-24-2024 History of Presen t illness Narrative DAILY PROGRESS NOTE Admit Date: (Not on file) Date of Evaluation: 43:32 PM [facility] @ZEN@ IMPRESSION AND PLAN: 56 y/o female with history of CKD IIIB, lipidemia and HTN is here for CKD care. She is very sensitive to medications. She likes 3 months visit. 1) CKD IIIB due to HTN Cr 1.58 -> 1.38 -> 1.36 -> 1.69 -> 1.49 -> 1.61 -> 1.50 -> 1.60 -> 1.73 -> 1.49 UA disclosed proteinuria. 24 hour urine pr 578 Spot urine microalbumin / Cr 144.5 Urine Na 128 -> 154 -> 107 -> 139 -> 167 -> 155 Continue with farxiga daily Will get UA. Will get renal panel. 2) HTN SBP 130s Continue with lisinopril 5mg PO Qday. 3) Protienuria Spot urine pr/cr 0.3 -> 0.5 -> 0.4 -> 0.5 -> 0.3 -> 0.2 -> 0.3 Will consider kidney biopsy. 4) Hydronephrosis Renal US disclosed mild to moderate hydronephrosis of the left kidney. No no evidence of nephrolithiasis. CT urogram disclosed no hydronephrosis. Resolved. 5) Hyperparathyroid Vitamin D 28.3 -> 47.5 PTH 101.3 -> 135.7 -> 78 DEXA disclosed osteopenic. There is an increased risk of fracture. Discontinue rayaldee She cannot tolerate it daily Continue with calcitriol Will repeat vitamin D since she has not been taking her vitamin D. SUBJECTIVE: Patient seen and examined. Chart, medications, labs reviewed. Appointment on 06/22/2024 Component Date Value Ref Range Status Glucose 06/22/2024 80 70 - 100 MG/DL Final Comment: NORMAL <100 mg/dL PREDIABETES 101-126 mg/dL DIABETES 126 mg/dL or higher BUN 06/22/2024 21 (H) 7 - 20 MG/DL Final CREATININE SERUM 06/22/2024 1.49 (H) 0.70 - 1.20 MG/DL Final SODIUM 06/22/2024 140 137 - 145 MMOL/L Final POTASSIUM 06/22/2024 4.2 3.5 - 5.1 MMOL/L Final CHLORIDE 06/22/2024 110 (H) 98 - 107 MMOL/L Final Please note: Triglyceride levels of 600mg/dL or higher may positively bias chloride results by approximately 2.1 mmol CARBON DIOXIDE (CO2) 06/22/2024 23 22 - 30 MMOL/L Final Albumin 06/22/2024 4.3 3.5 - 5.0 G/dl Final CALCIUM 06/22/2024 9.9 8.4 - 10.2 MG/DL Final PHOSPHORUS 06/22/2024 3.7 2.5 - 4.5 MG/DL Final ESTIMATED GFR, NON AMER 06/22/2024 38 ml/min/1.73sq.m Final ESTIMATED GFR, 06/22/2024 46 ml/min/1.73sq.m Final GFR COMMENT 06/22/2024 Average GFR for 60-69 years old = 85. Final Comment: Chronic Kidney disease, GFR = <60. Kidney failure, GFR = <15. The GFR estimate is not adjusted for extreme body surface area or acute process, nor has it been validated for women or ethnic groups other than and . MAGNESIUM 06/22/2024 2.4 (H) 1.6 - 2.3 MG/DL Final WBC (WHITE BLOOD COUNT) 06/22/2024 5.7 3.6 - 11.0 10*3/uL Final RBC 06/22/2024 4.91 4.0 - 5.4 10*6/uL Final HEMOGLOBIN (HGB) 06/22/2024 15.2 12.0 - 16.0 G/DL Final HEMATOCRIT (HCT) 06/22/2024 45.1 36.0 - 48.0 % Final MEAN CELL VOLUME 06/22/2024 91.9 80.0 - 100.0 FL Final Mean Cell HGB 06/22/2024 31.0 26.0 - 35.0 PG Final MEAN CELL HGB CONCENTRATION 06/22/2024 33.8 27.0 - 37.0 G/DL Final RBC DISTRIBUTION 06/22/2024 14.4 11.5 - 14.5 % Final PLATELET COUNT 06/22/2024 287 130 - 400 10*3/uL Final MEAN PLATELET VOLUME 06/22/2024 7.1 (L) 7.4 - 11.0 FL Final DIFFERENTIAL TYPE 06/22/2024 AUTO DIFF % Final NEUTROPHILS 06/22/2024 58.6 37.0 - 75.0 % Final LYMPHOCYTE 06/22/2024 30.6 20.0 - 55.0 % Final MONOCYTE % 06/22/2024 7.7 0.0 - 10.0 % Final EOSINOPHIL % 06/22/2024 2.3 0.0 - 11.0 % Final BASOPHIL % 06/22/2024 0.8 0.0 - 2.0 % Final Absolute Neutrophil Count 06/22/2024 3.4 1.4 - 6.5 10*3/uL Final LYMPHOCYTES, ABSOLUTE 06/22/2024 1.8 1.2 - 3.4 10*3/uL Final MONOCYTES, ABSOLUTE 06/22/2024 0.4 0.0 - 0.7 10*3/uL Final ABSOLUTE EOSINOPHIL COUNT 06/22/2024 0.1 0.0 - 0.7 10*3/uL Final ABSOLUTE BASOPHIL COUNT 06/22/2024 0.0 0.0 - 0.2 10*3/uL Final CREATININE, MG/DL, URINE 06/22/2024 99.4 MG/DL Final NO NORMAL VALUES ESTABLISHED FOR RANDOM SPECIMENS MICROALBUMIN URINE RANDOM 06/22/2024 143.6 (H) 0.0 - 16.7 mg/L Final MICROALBUMIN/CREATININE RATIO 06/22/2024 144.5 (H) 1.3 - 30.0 mg MALB/g CREAT Final PROTEIN MG/DL-URINE 06/22/2024 28 (H) 0 - 12 MG/DL Final CREATININE, MG/DL, URINE 06/22/2024 99.3 MG/DL Final NO NORMAL VALUES ESTABLISHED FOR RANDOM SPECIMENS PROTEIN/CREAT RATIO, URINE 06/22/2024 0.3 Final Comment: REFERENCE RANGES <0.2 NORMAL 0.2-3.5 NON-NEPHROTIC >3.5 NEPHROTIC COLOR, URINE 06/22/2024 YELLOW YELLOW Final APPEARANCE, URINE 06/22/2024 CLEAR CLEAR Final Specific [place], Urine 06/22/2024 1.025 1.010 - 1.025 Final PH URINE 06/22/2024 5.5 5.0 - 7.0 Final Urine Protein 06/22/2024 TRACE (A) NEGATIVE mg/dl Final GLUCOSE, URINE 06/22/2024 NEGATIVE NEGATIVE mg/dl Final KETONES, URINE 06/22/2024 NEGATIVE NEGATIVE mg/dl Final BILIRUBIN, URINE 06/22/2024 NEGATIVE NEGATIVE Final BLOOD, URINE DIPSTICK 06/22/2024 TRACE-LYSED (A) NEGATIVE Final NITRITES, URINE 06/22/2024 NEGATIVE NEGATIVE Final UROBILINOGEN, URINE 06/22/2024 0.2 0.2 - 1.0 E.U./dL Final LEUKOCYTE ESTERASE, URINE 06/22/2024 NEGATIVE NEGATIVE Final SODIUM, URINE RANDOM 06/22/2024 155 (H) 30 - 90 MMOL/L Final WBC, URINE 06/22/2024 NEGATIVE NEGATIVE /HPF Final RBC, URINE 06/22/2024 1 TO 5 NEGATIVE /HPF Final Epithelial Cells UA 06/22/2024 NONE /HPF Final Mucus 06/22/2024 NEGATIVE NEGATIVE Final BACTERIA, URINE 06/22/2024 TRACE (A) NEGATIVE Final CRYSTALS, URINE 06/22/2024 NONE NONE Final CASTS, URINE 06/22/2024 NONE NONE /LPF Final COMMENT, URINE 06/22/2024 CULTURE CRITERIA NOT MET, NO CULTURE PERFORMED. Final LABS Labs-ABGs @ABGROUNDS@ Labs-CBC @CBCBRIEFROUNDS@ Labs-Chem 7([facility]) @[facility]@ Labs-Coa WBC (WHITE BLOOD COUNT) Date Value Ref Range Status 06/22/2024 5.7 3.6 - 11.0 10*3/uL Final 03/22/2024 6.5 3.6 - 11.0 10*3/uL Final 12/23/2023 5.2 3.6 - 11.0 10*3/uL Final HEMOGLOBIN (HGB) Date Value Ref Range Status 06/22/2024 15.2 12.0 - 16.0 G/DL Final 03/22/2024 14.4 12.0 - 16.0 G/DL Final 12/23/2023 15.2 12.0 - 16.0 G/DL Final HEMATOCRIT (HCT) Date Value Ref Range Status 06/22/2024 45.1 36.0 - 48.0 % Final 03/22/2024 43.2 36.0 - 48.0 % Final 12/23/2023 44.5 36.0 - 48.0 % Final PLATELET COUNT Date Value Ref Range Status 06/22/2024 287 130 - 400 10*3/uL Final 03/22/2024 328 130 - 400 10*3/uL Final 12/23/2023 306 130 - 400 10*3/uL Final SODIUM Date Value Ref Range Status 06/22/2024 140 137 - 145 MMOL/L Final 03/22/2024 139 137 - 145 MMOL/L Final 12/23/2023 140 137 - 145 MMOL/L Final CHLORIDE Date Value Ref Range Status 06/22/2024 110 (H) 98 - 107 MMOL/L Final Comment: Please note: Triglyceride levels of 600mg/dL or higher may positively bias chloride results by approximately 2.1 mmol 03/22/2024 111 (H) 98 - 107 MMOL/L Final Comment: Please note: Triglyceride levels of 600mg/dL or higher may positively bias chloride results by approximately 2.1 mmol 12/23/2023 108 (H) 98 - 107 MMOL/L Final Comment: Please note: Triglyceride levels of 600mg/dL or higher may positively bias chloride results by approximately 2.1 mmol BUN Date Value Ref Range Status 06/22/2024 21 (H) 7 - 20 MG/DL Final 03/22/2024 17 7 - 20 MG/DL Final 12/23/2023 21 (H) 7 - 20 MG/DL Final POTASSIUM Date Value Ref Range Status 06/22/2024 4.2 3.5 - 5.1 MMOL/L Final 03/22/2024 4.2 3.5 - 5.1 MMOL/L Final 12/23/2023 3.9 3.5 - 5.1 MMOL/L Final CREATININE SERUM Date Value Ref Range Status 06/22/2024 1.49 (H) 0.70 - 1.20 MG/DL Final 03/22/2024 1.73 (H) 0.70 - 1.20 MG/DL Final 12/23/2023 1.60 (H) 0.70 - 1.20 MG/DL Final Glucose Date Value Ref Range Status 06/22/2024 80 70 - 100 MG/DL Final Comment: NORMAL <100 mg/dL PREDIABETES 101-126 mg/dL DIABETES 126 mg/dL or higher 03/22/2024 91 70 - 100 MG/DL Final Comment: NORMAL <100 mg/dL PREDIABETES 101-126 mg/dL DIABETES 126 mg/dL or higher 12/23/2023 102 (H) 70 - 100 MG/DL Final Comment: NORMAL <100 mg/dL PREDIABETES 101-126 mg/dL DIABETES 126 mg/dL or higher PROTEIN, TOTAL Date Value Ref Range Status 01/16/2023 7.0 6.3 - 8.2 GM/DL Final 09/09/2022 6.7 6.3 - 8.2 GM/DL Final Albumin Date Value Ref Range Status 06/22/2024 4.3 3.5 - 5.0 G/dl Final 03/22/2024 4.1 3.5 - 5.0 G/dl Final 12/23/2023 4.3 3.5 - 5.0 G/dl Final AST Date [...] Final CALCIUM Date Value Ref Range Status 06/22/2024 9.9 8.4 - 10.2 MG/DL Final 03/22/2024 9.5 8.4 - 10.2 MG/DL Final 12/23/2023 9.4 8.4 - 10.2 MG/DL Final PHOSPHORUS Date Value Ref Range Status 06/22/2024 3.7 2.5 - 4.5 MG/DL Final 03/22/2024 3.7 2.5 - 4.5 MG/DL Final 12/23/2023 3.4 2.5 - 4.5 MG/DL Final MAGNESIUM Date Value Ref Range Status 06/22/2024 2.4 (H) 1.6 - 2.3 MG/DL Final 03/22/2024 2.1 1.6 - 2.3 MG/DL Final 12/23/2023 2.3 1.6 - 2.3 MG/DL Final Lab Results Component Value Date CREATURINE 99.4 06/22/2024 CREATURINE 99.3 06/22/2024 CREATSERUM 1.49 (H) 06/22/2024 BUN 21 (H) 06/22/2024 SODIUM 140 06/22/2024 POTASSIUM 4.2 06/22/2024 CHLORIDE 110 (H) 06/22/2024 CO2 23 06/22/2024 ROS: Constitution: No fever, no chill HEENT: No headache, no sinus issues CV: No chest pain, no palpitation Lung: No cough, No SOB Abd: No diarrhea, no constipation Neuro: No seizure, no loss of consciousness Heme: No bleeding, no bruise PHYSICAL EXAM: Wt Readings from Last 3 Encounters: 06/24/24 73.9 kg (163 lb) 03/26/24 76.2 kg (168 lb) 03/24/24 76.5 kg (168 lb 9.6 oz) Temp Readings from Last 3 Encounters: 03/26/24 97.7 F (36.5 C) (Temporal) 01/13/24 97.6 F (36.4 C) (Temporal) 09/21/23 97.1 F (36.2 C) (Temporal) BP Readings from Last 3 Encounters: 06/24/24 124/62 03/24/24 136/90 12/24/23 118/70 Pulse Readings from Last 3 Encounters: 06/24/24 66 03/24/24 66 12/24/23 75 Gen: NAD, lying in bed, conversant HEENT: Atraumatic, PERRLA, moist membrane CV: RRR, nl S1 and S2, no m/g/r Lung: CTAB, no wheezing, no crackle Abd: +BS, nontender, no distended Ext: No rash, no clubbing, no cyanosis. No edema. Neuro: CNII-XII grossly intact, 5/5 strength, normal tone Skin: Warm and dry documented in this encounter [facility] 03-26-2024 History of Presen t illness Narrative Chief Complaint Patient presents with Left Knee - Pain Pain Radiation To: none Pain Duration: 1 yr. 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 Worsening pain lately. She has reported some radiation down the lower extremity. Ultrasound from January 2023 was negative for DVT. History of CKD. IMPRESSION/PLAN: Recent MRI results reviewed and findings discussed. 1. No acute displaced fracture or dislocation of the left knee. 2. 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 3. Very subtle blunting of the free edge of the body segment of the left medial meniscus, possibly subtle radial tear. The left lateral meniscus is intact. 4. Intact left knee cruciate and collateral ligaments. Mild thickening of the proximal left medial collateral ligament may be sequela of prior sprain. 5. Trace left knee effusion without large popliteal cyst. Medical decision making has been discussed with patient including potential further work-up, surgical and non-surgical options. Continue current conservative treatment. Medication management: May continue topical Diclofenac, Tizanidine. Follow-up In 3 months for office visit and reevaluation. KNEE EXAM LEFT RIGHT Inspection No effusion. No deformity. Crepitance No effusion. No deformity. Paltation No tenderness to palpation. No tenderness to palpation. ROM 0-130 degrees 0-130 degrees Strength 5/5 in flexion & extension 5/5 in flexion and extension Gait: Non-antalgic Visit Vitals Temp 97.7 F (36.5 C) (Temporal) Ht 1.6 m (5' 3") Wt 76.2 kg (168 lb) BMI 29.76 kg/m *Time components listed in minutes below. This data may or may not be needed for insurance reimbursement purposes. Reviewing clinical note(s) from previous visit/ER/urgent care/PCP/other specialists 4 Review of medical history 4 Review of medical surgery nurse or green jobs trainer note 4 Independently obtain and review medical history and history of present illness with patient 4 Other counseling and coordination of care 7 Updating patient chart, documentation of clinical encounter and signing of orders 7 *Portions of this note may have been created with [employer] or other software which leads to grammatical and typographical errors which are not product sales representative of the intent with my spoken words. Chief Complaint Patient presents with Left Knee - Pain Pain Radiation To: none Pain Duration: 1 yr. 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 Mild symptoms and overall improvement. No recent mechanical symptoms or significant swelling. She has reported some radiation down the lower extremity. Ultrasound from January 2023 was negative for DVT. History of CKD. IMPRESSION/PLAN: Recent MRI results reviewed and findings discussed. 1. No acute displaced fracture or dislocation of the left knee. 2. 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 3. Very subtle blunting of the free edge of the body segment of the left medial meniscus, possibly subtle radial tear. The left lateral meniscus is intact. 4. Intact left knee cruciate and collateral ligaments. Mild thickening of the proximal left medial collateral ligament may be sequela of prior sprain. 5. Trace left knee effusion without large popliteal cyst. Medical decision making has been discussed with patient including potential further work-up, surgical and non-surgical options. Continue current conservative treatment. Medication management: May continue topical Diclofenac, Tizanidine. Discussed surgery but she is not really symptomatic lately. Follow-up In 3 months for office visit and reevaluation. KNEE EXAM LEFT RIGHT Inspection No effusion. No deformity. Crepitance No effusion. No deformity. Paltation No tenderness to palpation. No tenderness to palpation. ROM 0-130 degrees 0-130 degrees Strength 5/5 in flexion & extension 5/5 in flexion and extension Gait: Non-antalgic Visit Vitals Temp 97.7 F (36.5 C) (Temporal) Ht 1.6 m (5' 3") Wt 76.2 kg (168 lb) BMI 29.76 kg/m *Time components listed in minutes below. This data may or may not be needed for insurance reimbursement purposes. Reviewing clinical note(s) from previous visit/ER/urgent care/PCP/other specialists 4 Review of medical history 4 Review of medical surgery nurse or green jobs trainer note 4 Independently obtain and review medical history and history of present illness with patient 4 Other counseling and coordination of care 7 Updating patient chart, documentation of clinical encounter and signing of orders 7 *Portions of this note may have been created with [employer] or other software which leads to grammatical and typographical errors which are not product sales representative of the intent with my spoken words. Clinical office clerk assistant/AT/MA was acting as a scribe today [...] Debra Max DO documented in this encounter [facility] 03-24-2024 History of Presen t illness Narrative DAILY PROGRESS NOTE Admit Date: (Not on file) Date of Evaluation: 42:36 PM [facility] @ZEN@ IMPRESSION AND PLAN: 56 y/o female with history of CKD IIIB, lipidemia and HTN is here for CKD care. She is very sensitive to medications. She likes 3 months visit. 1) CKD IIIB due to HTN Cr 1.58 -> 1.38 -> 1.36 -> 1.69 -> 1.49 -> 1.61 -> 1.50 -> 1.60 -> 1.73 UA disclosed proteinuria. 24 hour urine pr 578 Urine Na 128 -> 154 -> 107 -> 139 -> 167 Continue with farxiga daily Will get UA. Will get renal panel. 2) HTN SBP 130s Continue with lisinopril 5mg PO Qday. 3) Protienuria Spot urine pr/cr 0.3 -> 0.5 -> 0.4 -> 0.5 -> 0.3 -> 0.2 Will consider kidney biopsy. 4) Hydronephrosis Renal US disclosed mild to moderate hydronephrosis of the left kidney. No no evidence of nephrolithiasis. CT urogram disclosed no hydronephrosis. Resolved. 5) Hyperparathyroid Vitamin D 28.3 -> 47.5 PTH 101.3 -> 135.7 -> 78 DEXA disclosed osteopenic. There is an increased risk of fracture. Discontinue rayaldee She cannot tolerate it daily Continue with calcitriol SUBJECTIVE: Patient seen and examined. Chart, medications, labs reviewed. Appointment on 03/22/2024 Component Date Value Ref Range Status PTH INTACT 03/22/2024 78.0 (H) 14.5 - 75.2 pg/mL Final Glucose 03/22/2024 91 70 - 100 MG/DL Final Comment: NORMAL <100 mg/dL PREDIABETES 101-126 mg/dL DIABETES 126 mg/dL or higher BUN 03/22/2024 17 7 - 20 MG/DL Final CREATININE SERUM 03/22/2024 1.73 (H) 0.70 - 1.20 MG/DL Final SODIUM 03/22/2024 139 137 - 145 MMOL/L Final POTASSIUM 03/22/2024 4.2 3.5 - 5.1 MMOL/L Final CHLORIDE 03/22/2024 111 (H) 98 - 107 MMOL/L Final Please note: Triglyceride levels of 600mg/dL or higher may positively bias chloride results by approximately 2.1 mmol CARBON DIOXIDE (CO2) 03/22/2024 25 22 - 30 MMOL/L Final Albumin 03/22/2024 4.1 3.5 - 5.0 G/dl Final CALCIUM 03/22/2024 9.5 8.4 - 10.2 MG/DL Final PHOSPHORUS 03/22/2024 3.7 2.5 - 4.5 MG/DL Final ESTIMATED GFR, NON AMER 03/22/2024 32 ml/min/1.73sq.m Final ESTIMATED GFR, 03/22/2024 39 ml/min/1.73sq.m Final GFR COMMENT 03/22/2024 Average GFR for 60-69 years old = 85. Final Comment: Chronic Kidney disease, GFR = <60. Kidney failure, GFR = <15. The GFR estimate is not adjusted for extreme body surface area or acute process, nor has it been validated for women or ethnic groups other than and . MAGNESIUM 03/22/2024 2.1 1.6 - 2.3 MG/DL Final WBC (WHITE BLOOD COUNT) 03/22/2024 6.5 3.6 - 11.0 10*3/uL Final RBC 03/22/2024 4.69 4.0 - 5.4 10*6/uL Final HEMOGLOBIN (HGB) 03/22/2024 14.4 12.0 - 16.0 G/DL Final HEMATOCRIT (HCT) 03/22/2024 43.2 36.0 - 48.0 % Final MEAN CELL VOLUME 03/22/2024 92.0 80.0 - 100.0 FL Final Mean Cell HGB 03/22/2024 30.7 26.0 - 35.0 PG Final MEAN CELL HGB CONCENTRATION 03/22/2024 33.4 27.0 - 37.0 G/DL Final RBC DISTRIBUTION 03/22/2024 14.8 (H) 11.5 - 14.5 % Final PLATELET COUNT 03/22/2024 328 130 - 400 10*3/uL Final MEAN PLATELET VOLUME 03/22/2024 7.2 (L) 7.4 - 11.0 FL Final DIFFERENTIAL TYPE 03/22/2024 AUTO DIFF % Final NEUTROPHILS 03/22/2024 62.5 37.0 - 75.0 % Final LYMPHOCYTE 03/22/2024 29.3 20.0 - 55.0 % Final MONOCYTE % 03/22/2024 5.7 0.0 - 10.0 % Final EOSINOPHIL % 03/22/2024 1.4 0.0 - 11.0 % Final BASOPHIL % 03/22/2024 1.1 0.0 - 2.0 % Final Absolute Neutrophil Count 03/22/2024 4.0 1.4 - 6.5 10*3/uL Final LYMPHOCYTES, ABSOLUTE 03/22/2024 1.9 1.2 - 3.4 10*3/uL Final MONOCYTES, ABSOLUTE 03/22/2024 0.4 0.0 - 0.7 10*3/uL Final ABSOLUTE EOSINOPHIL COUNT 03/22/2024 0.1 0.0 - 0.7 10*3/uL Final ABSOLUTE BASOPHIL COUNT 03/22/2024 0.1 0.0 - 0.2 10*3/uL Final PROTEIN MG/DL-URINE 03/22/2024 25 (H) 0 - 12 MG/DL Final CREATININE, MG/DL, URINE 03/22/2024 116.2 MG/DL Final NO NORMAL VALUES ESTABLISHED FOR RANDOM SPECIMENS PROTEIN/CREAT RATIO, URINE 03/22/2024 0.2 Final Comment: REFERENCE RANGES <0.2 NORMAL 0.2-3.5 NON-NEPHROTIC >3.5 NEPHROTIC COLOR, URINE 03/22/2024 YELLOW YELLOW Final APPEARANCE, URINE 03/22/2024 CLEAR CLEAR Final Specific [place], Urine 03/22/2024 1.020 1.010 - 1.025 Final PH URINE 03/22/2024 5.5 5.0 - 7.0 Final Urine Protein 03/22/2024 NEGATIVE NEGATIVE mg/dl Final GLUCOSE, URINE 03/22/2024 500 (A) NEGATIVE mg/dl Final KETONES, URINE 03/22/2024 NEGATIVE NEGATIVE mg/dl Final BILIRUBIN, URINE 03/22/2024 NEGATIVE NEGATIVE Final BLOOD, URINE DIPSTICK 03/22/2024 TRACE-INTACT (A) NEGATIVE Final NITRITES, URINE 03/22/2024 NEGATIVE NEGATIVE Final UROBILINOGEN, URINE 03/22/2024 0.2 0.2 - 1.0 E.U./dL Final LEUKOCYTE ESTERASE, URINE 03/22/2024 NEGATIVE NEGATIVE Final SODIUM, URINE RANDOM 03/22/2024 167 (H) 30 - 90 MMOL/L Final WBC, URINE 03/22/2024 NEGATIVE NEGATIVE /HPF Final RBC, URINE 03/22/2024 NEGATIVE NEGATIVE /HPF Final Epithelial Cells UA 03/22/2024 NONE /HPF Final Mucus 03/22/2024 NEGATIVE NEGATIVE Final BACTERIA, URINE 03/22/2024 NEGATIVE NEGATIVE Final CRYSTALS, URINE 03/22/2024 NONE NONE Final CASTS, URINE 03/22/2024 NONE NONE /LPF Final COMMENT, URINE 03/22/2024 CULTURE CRITERIA NOT MET, NO CULTURE PERFORMED. Final LABS Labs-ABGs @ABGROUNDS@ Labs-CBC @CBCBRIEFROUNDS@ Labs-Chem 7([facility]) @[facility]@ Labs-Coags WBC (WHITE BLOOD COUNT) Date Value Ref Range Status 03/22/2024 6.5 3.6 - 11.0 10*3/uL Final 12/23/2023 5.2 3.6 - 11.0 10*3/uL Final 10/14/2023 5.0 3.6 - 11.0 10*3/uL Final HEMOGLOBIN (HGB) Date Value Ref Range Status 03/22/2024 14.4 12.0 - 16.0 G/DL Final 12/23/2023 15.2 12.0 - 16.0 G/DL Final 10/14/2023 14.7 12.0 - 16.0 G/DL Final HEMATOCRIT (HCT) Date Value Ref Range Status 03/22/2024 43.2 36.0 - 48.0 % Final 12/23/2023 44.5 36.0 - 48.0 % Final 10/14/2023 44.9 36.0 - 48.0 % Final PLATELET COUNT Date Value Ref Range Status 03/22/2024 328 130 - 400 10*3/uL Final 12/23/2023 306 130 - 400 10*3/uL Final 10/14/2023 290 130 - 400 10*3/uL Final SODIUM Date Value Ref Range Status 03/22/2024 139 137 - 145 MMOL/L Final 12/23/2023 140 137 - 145 MMOL/L Final 10/14/2023 137 137 - 145 MMOL/L Final CHLORIDE Date Value Ref Range Status 03/22/2024 111 (H) 98 - 107 MMOL/L Final Comment: Please note: Triglyceride levels of 600mg/dL or higher may positively bias chloride results by approximately 2.1 mmol 12/23/2023 108 (H) 98 - 107 MMOL/L Final Comment: Please note: Triglyceride levels of 600mg/dL or higher may positively bias chloride results by approximately 2.1 mmol 10/14/2023 105 98 - 107 MMOL/L Final Comment: Please note: Triglyceride levels of 600mg/dL or higher may positively bias chloride results by approximately 2.1 mmol BUN Date Value Ref Range Status 03/22/2024 17 7 - 20 MG/DL Final 12/23/2023 21 (H) 7 - 20 MG/DL Final 10/14/2023 24 (H) 7 - 20 MG/DL Final POTASSIUM Date Value Ref Range Status 03/22/2024 4.2 3.5 - 5.1 MMOL/L Final 12/23/2023 3.9 3.5 - 5.1 MMOL/L Final 10/14/2023 4.0 3.5 - 5.1 MMOL/L Final CREATININE SERUM Date Value Ref Range Status 03/22/2024 1.73 (H) 0.70 - 1.20 MG/DL Final 12/23/2023 1.60 (H) 0.70 - 1.20 MG/DL Final 10/14/2023 1.50 (H) 0.70 - 1.20 MG/DL Final Glucose Date Value Ref Range Status 03/22/2024 91 70 - 100 MG/DL Final Comment: NORMAL <100 mg/dL PREDIABETES 101-126 mg/dL DIABETES 126 mg/dL or higher 12/23/2023 102 (H) 70 - 100 MG/DL Final Comment: NORMAL <100 mg/dL PREDIABETES 101-126 mg/dL DIABETES 126 mg/dL or higher 10/14/2023 103 (H) 70 - 100 MG/DL Final Comment: NORMAL <100 mg/dL PREDIABETES 101-126 mg/dL DIABETES 126 mg/dL or higher PROTEIN, TOTAL Date Value Ref Range Status 01/16/2023 7.0 6.3 - 8.2 GM/DL Final 09/09/2022 6.7 6.3 - 8.2 GM/DL Final Albumin Date Value Ref Range Status 03/22/2024 4.1 3.5 - 5.0 G/dl Final 12/23/2023 4.3 3.5 - 5.0 G/dl Final 10/14/2023 3.8 3.5 - 5.0 G/dl Final AST [...] Final CALCIUM Date Value Ref Range Status 03/22/2024 9.5 8.4 - 10.2 MG/DL Final 12/23/2023 9.4 8.4 - 10.2 MG/DL Final 10/14/2023 9.8 8.4 - 10.2 MG/DL Final PHOSPHORUS Date Value Ref Range Status 03/22/2024 3.7 2.5 - 4.5 MG/DL Final 12/23/2023 3.4 2.5 - 4.5 MG/DL Final 10/14/2023 3.9 2.5 - 4.5 MG/DL Final MAGNESIUM Date Value Ref Range Status 03/22/2024 2.1 1.6 - 2.3 MG/DL Final 12/23/2023 2.3 1.6 - 2.3 MG/DL Final 10/14/2023 2.4 (H) 1.6 - 2.3 MG/DL Final Lab Results Component Value Date CREATURINE 116.2 03/22/2024 CREATSERUM 1.73 (H) 03/22/2024 BUN 17 03/22/2024 SODIUM 139 03/22/2024 POTASSIUM 4.2 03/22/2024 CHLORIDE 111 (H) 03/22/2024 CO2 25 03/22/2024 ROS: Constitution: No fever, no chill HEENT: No headache, no sinus issues CV: No chest pain, no palpitation Lung: No cough, No SOB Abd: No diarrhea, no constipation Neuro: No seizure, no loss of consciousness Heme: No bleeding, no bruise PHYSICAL EXAM: Wt Readings from Last 3 Encounters: 03/24/24 76.5 kg (168 lb 9.6 oz) 03/05/24 77.1 kg (170 lb) 01/13/24 77.3 kg (170 lb 8 oz) Temp Readings from Last 3 Encounters: 01/13/24 97.6 F (36.4 C) (Temporal) 09/21/23 97.1 F (36.2 C) (Temporal) 09/10/23 97.7 F (36.5 C) (Temporal) BP Readings from Last 3 Encounters: 03/24/24 136/90 12/24/23 118/70 10/15/23 129/70 Pulse Readings from Last 3 Encounters: 03/24/24 66 12/24/23 75 10/15/23 75 Gen: NAD, lying in bed, conversant HEENT: Atraumatic, PERRLA, moist membrane CV: RRR, nl S1 and S2, no m/g/r Lung: CTAB, no wheezing, no crackle Abd: +BS, nontender, no distended Ext: No rash, no clubbing, no cyanosis. No edema. 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 Worsening symptoms at times. She has reported some radiation down the lower extremity. Ultrasound from January 2023 was negative for DVT. History of CKD. IMPRESSION/PLAN: Recent MRI results reviewed and findings discussed. 1. No acute displaced fracture or dislocation of the left knee. 2. 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 3. Very subtle blunting of the free edge of the body segment of the left medial meniscus, possibly subtle radial tear. The left lateral meniscus is intact. 4. Intact left knee cruciate and collateral ligaments. Mild thickening of the proximal left medial collateral ligament may be sequela of prior sprain. 5. Trace left knee effusion without large popliteal cyst. Has tried and failed several conservative measures. Medication management: May continue topical Diclofenac, Tizanidine. Injection/(s) performed after discussing risks, benefits and alternatives. See procedure note. The patient understands that this procedure is elective. They presented today for a billable office encounter. The office visit today involved evaluation or re-evaluation of their orthopedic condition(s) and any other medical problem which could influence today's orthopedic medical decision making. The mutual decision to perform injection(s) was made after careful clinical evaluation or re-evaluation of the patient's clinical status, including, but not limited to severity or worsening pattern of pain and/or function, and response to any previous treatment. Other variables can influence medical decision making which may result in a decision to inject or not to inject. These variables may include decision for surgery, improving symptoms, development of other medical problems which make performing an injection an unfavorable choice, patient preference or many other factors. The documentation for procedure billing is listed in the procedure note. The documentation to substantiate the appropriate evaluation and management level of service office code is documented separately. Follow up: 3-4 weeks. Visit Vitals Ht 1.6 m (5' 3") Wt 77.1 kg (170 lb) BMI 30.11 kg/m LARGE JOINT/BURSA INJECTION AND/OR ASPIRATION: L knee Date/Time: 03/05/2024 2:30 PM Performed by: Debra Max DO Authorized by: Debra Max DO Supporting Documentation Indications: pain Procedure Details: Location: knee - L knee Local Anesthetic: ethyl chloride (cold spray) and lidocaine 1% Total Local Anesthetic: 3 mLs Needle size: 22 G Medication Verification: I have personally verified and performed the final check of the medication(s) used in this procedure prior to administration. The following items were included during the verification process for medication(s) administered: drug name, strength, volume, expiration, physical integrity and appearance of the medication(s). Medications administered: 1 mL triamcinolone 40 MG/ML Patient tolerance: patient tolerated the procedure well with no immediate complications Consent: Consent was obtained prior to the procedure after discussion of the risks, benefits and alternatives, and expected outcomes were discussed with the patient. The possibilities of reaction to medication, bleeding, infection, the need for additional procedures, failure to diagnosis a condition, and creating a complication requiring operation were discussed with the patient. The patient concurred with the proposed plan, giving consent. Preparation: Patient was prepped in the usual sterile fashion. *Time components listed in minutes below. This data may or may not be needed for insurance reimbursement purposes. Reviewing clinical note(s) from previous visit/ER/urgent care/PCP/other specialists 4 Review of medical history 4 Review of medical surgery nurse or green jobs trainer note 4 Independently obtain and review medical history and history of present illness with patient 4 Other counseling and coordination of care 7 Updating patient chart, documentation of clinical encounter and signing of orders 7 *Portions of this note may have been created with [employer] or other software which leads to grammatical and typographical errors which are not product sales representative of the intent with my spoken words. 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 Worsening symptoms at times. +mechanical symptoms. She seeds to have increased pain correlated to when she dates vit d. She will continue discussion with Dr. Spencer regarding this. She has reported some radiation down the lower extremity. Ultrasound from January 2023 was negative for DVT. History of CKD. IMPRESSION/PLAN: Recent MRI results reviewed and findings discussed. 1. No acute displaced fracture or dislocation of the left knee. 2. 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 3. Very subtle blunting of the free edge of the body segment of the left medial meniscus, possibly subtle radial tear. The left lateral meniscus is intact. 4. Intact left knee cruciate and collateral ligaments. Mild thickening of the proximal left medial collateral ligament may be sequela of prior sprain. 5. Trace left knee effusion without large popliteal cyst. Has tried and failed several conservative measures. Medication management: May continue topical Diclofenac, Tizanidine. Discussed option of arthroscopic surgery. Injection/(s) performed after discussing risks, benefits and alternatives. See procedure note. The patient understands that this procedure is elective. They presented today for a billable office encounter. The office visit today involved evaluation or re-evaluation of their orthopedic condition(s) and any other medical problem which could influence today's orthopedic medical decision making. The mutual decision to perform injection(s) was made after careful clinical evaluation or re-evaluation of the patient's clinical status, including, but not limited to severity or worsening pattern of pain and/or function, and response to any previous treatment. Other variables can influence medical decision making which may result in a decision to inject or not to inject. These variables may include decision for surgery, improving symptoms, development of other medical problems which make performing an injection an unfavorable choice, patient preference or many other factors. The documentation for procedure billing is listed in the procedure note. The documentation to substantiate the appropriate evaluation and management level of service office code is documented separately. Follow up: 3-4 weeks. Visit Vitals Ht 1.6 m (5' 3") Wt 77.1 kg (170 lb) BMI 30.11 kg/m LARGE JOINT/BURSA INJECTION AND/OR ASPIRATION: L knee Date/Time: 03/05/2024 2:30 PM Performed by: Debra Max DO Authorized by: Debra Max DO Supporting Documentation Indications: pain Procedure Details: Location: knee - L knee Local Anesthetic: ethyl chloride (cold spray) and lidocaine 1% Total Local Anesthetic: 3 mLs Needle size: 22 G Medication Verification: I have personally verified and performed the final check of the medication(s) used in this procedure prior to administration. The following items were included during the verification process for medication(s) administered: drug name, strength, volume, expiration, physical integrity and appearance of the medication(s). Medications administered: 1 mL triamcinolone 40 MG/ML Patient tolerance: patient tolerated the procedure well with no immediate complications Consent: Consent was obtained prior to the procedure after discussion of the risks, benefits and alternatives, and expected outcomes were discussed with the patient. The possibilities of reaction to medication, bleeding, infection, the need for additional procedures, failure to diagnosis a condition, and creating a complication requiring operation were discussed with the patient. The patient concurred with the proposed plan, giving consent. Preparation: Patient was prepped in the usual sterile fashion. *Time components listed in minutes below. This data may or may not be needed for insurance reimbursement purposes. Reviewing clinical note(s) from previous visit/ER/urgent care/PCP/other specialists 4 Review of medical history 4 Review of medical surgery nurse or green jobs trainer note 4 Independently obtain and review medical history and history of present illness with patient 4 Other counseling and coordination of care 7 Updating patient chart, documentation of clinical encounter and signing of orders 7 *Portions of this note may have been created with [employer] or other software which leads to grammatical and typographical errors which are not product sales representative of the intent with my spoken words. Clinical office clerk assistant/AT/MA was acting as a scribe today [...] Debra Max DO documented in this encounter [facility] 01-13-2024 History of Presen t illness Narrative Chief Complaint Patient presents with Left Knee - Pain Pain Radiation To: down to foot Pain Duration: January 2023, worsening x 1 mo. 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 Worsening pain lately. Patient reports ongoing mechanical symptoms. Some radiation down the lower extremity. Denies paresthesias. Has had some low back pain. Ultrasound from January 2023 was negative for DVT. History of CKD. IMPRESSION/PLAN: Xrays from 02/07/23 demonstrated mild degenerative changes. Continue current conservative treatment. Medication management: Topical Diclofenac again prescribed today, as well as Tizanidine. Ddx discussed [...] will see the patient back for a [id number] encounter to review results, re-evaluate as needed and guide any further treatment. Referral placed to Dr. Goyal for further evaluation of low back pain and radicular symptoms. Follow up one MRI is complete. KNEE EXAM LEFT RIGHT Inspection No effusion. No deformity. No effusion. No deformity. Paltation No tenderness to palpation. No tenderness to palpation. ROM 0-100 degrees 0-130 degrees Strength 5/5 in flexion & extension 5/5 in flexion and extension Gait: Non-antalgic Visit Vitals Temp 97.6 F (36.4 C) (Temporal) Ht 1.6 m (5' 3") Wt 77.3 kg (170 lb 8 oz) BMI 30.20 kg/m *Time components listed in minutes below. This data may or may not be needed for insurance reimbursement purposes. Reviewing clinical note(s) from previous visit/ER/urgent care/PCP/other specialists 4 Review of medical history 4 Review of medical surgery nurse or green jobs trainer note 4 Independently obtain and review medical history and history of present illness with patient 4 Other counseling and coordination of care 7 Updating patient chart, documentation of clinical encounter and signing of orders 7 Medication ordering and discussion of risks, benefits and alternatives 3 *Portions of this note may have been created with [employer] or other software which leads to grammatical and typographical errors which are not product sales representative of the intent with my spoken words. Chief Complaint Patient presents with Left Knee - Pain Pain Radiation To: down to foot Pain Duration: January 2023, worsening x 1 mo. 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 Worsening pain lately. Patient reports ongoing mechanical symptoms. Some radiation down the lower extremity. Denies paresthesias. Has had some low back pain. Ultrasound from January 2023 was negative for DVT. History of CKD. IMPRESSION/PLAN: Xrays from 02/07/23 demonstrated mild degenerative changes. Continue current conservative treatment. Medication management: Topical Diclofenac again prescribed today, as well as Tizanidine. Ddx discussed [...] will see the patient back for a [id number] encounter to review results, re-evaluate as needed and guide any further treatment. Referral placed to Dr. Goyal for further evaluation of low back pain and possible radicular symptoms. Follow up one MRI is complete. KNEE EXAM LEFT RIGHT Inspection No effusion. No deformity. No effusion. No deformity. Paltation No tenderness to palpation. No tenderness to palpation. ROM 0-100 degrees 0-130 degrees Strength 5/5 in flexion & extension 5/5 in flexion and extension Gait: Non-antalgic Visit Vitals Temp 97.6 F (36.4 C) (Temporal) Ht 1.6 m (5' 3") Wt 77.3 kg (170 lb 8 oz) BMI 30.20 kg/m *Time components listed in minutes below. This data may or may not be needed for insurance reimbursement purposes. Reviewing clinical note(s) from previous visit/ER/urgent care/PCP/other specialists 4 Review of medical history 4 Review of medical surgery nurse or green jobs trainer note 4 Independently obtain and review medical history and history of present illness with patient 4 Other counseling and coordination of care 7 Updating patient chart, documentation of clinical encounter and signing of orders 7 Medication ordering and discussion of risks, benefits and alternatives 3 *Portions of this note may have been created with [employer] or other software which leads to grammatical and typographical errors which are not product sales representative of the intent with my spoken words. Clinical office clerk assistant/AT/MA was acting as a scribe today [...] Debra Max DO documented in this encounter [facility] 12-24-2023 History of Presen t illness Narrative DAILY PROGRESS NOTE Admit Date: (Not on file) Date of Evaluation: 49:23 AM [facility] @[email or web address]@ IMPRESSION AND PLAN: 56 y/o female with history of CKD IIIB, lipidemia and HTN is here for CKD care. She is very sensitive to medications. She likes 3 months visit. 1) CKD IIIB due to HTN Cr 1.58 -> 1.38 -> 1.36 -> 1.69 -> 1.49 -> 1.61 -> 1.50 -> 1.60 UA disclosed proteinuria. 24 hour urine pr 578 Urine Na 128 -> 154 -> 107 -> 139 Continue with farxiga daily Will get UA. [...] hydronephrosis. Resolved. 5) Hyperparathyroid Vitamin D 28.3 -> 47.5 PTH 101.3 -> 135.7 DEXA disclosed osteopenic. There is an increased risk of fracture. Discontinue rayaldee She cannot tolerate it daily Continue with calcitriol Will repeat PTH. SUBJECTIVE: Patient seen and examined. Chart, medications, labs reviewed. Appointment on 12/23/2023 Component Date Value Ref Range Status VITAMIN D 25 HYDROXY 12/23/2023 47.5 NG/ML Final Comment: DEFICIENT <20 NG/ML INSUFFICIENT 20-<30 NG/ML SUFFICIENT 30-100 NG/ML POTENTIAL TOXICITY >100 NG/ML URIC ACID 12/23/2023 5.6 2.5 - 6.2 MG/DL Final PTH INTACT 12/23/2023 135.7 (H) 12 - 88 pg/mL Final Glucose 12/23/2023 102 (H) 70 - 100 MG/DL Final Comment: NORMAL <100 mg/dL PREDIABETES 101-126 mg/dL DIABETES 126 mg/dL or higher BUN 12/23/2023 21 (H) 7 - 20 MG/DL Final CREATININE SERUM 12/23/2023 1.60 (H) 0.70 - 1.20 MG/DL Final SODIUM 12/23/2023 140 137 - 145 MMOL/L Final POTASSIUM 12/23/2023 3.9 3.5 - 5.1 MMOL/L Final CHLORIDE 12/23/2023 108 (H) 98 - 107 MMOL/L Final Please note: Triglyceride levels of 600mg/dL or higher may positively bias chloride results by approximately 2.1 mmol CARBON DIOXIDE (CO2) 12/23/2023 26 22 - 30 MMOL/L Final Albumin 12/23/2023 4.3 3.5 - 5.0 G/dl Final CALCIUM 12/23/2023 9.4 8.4 - 10.2 MG/DL Final PHOSPHORUS 12/23/2023 3.4 2.5 - 4.5 MG/DL Final ESTIMATED GFR, NON AMER 12/23/2023 35 ml/min/1.73sq.m Final ESTIMATED GFR, 12/23/2023 42 ml/min/1.73sq.m Final GFR COMMENT 12/23/2023 Average GFR for 50-59 years old = 93. Final Comment: Chronic Kidney disease, GFR = <60. Kidney failure, GFR = <15. The GFR estimate is not adjusted for extreme body surface area or acute process, nor has it been validated for women or ethnic groups other than and . MAGNESIUM 12/23/2023 2.3 1.6 - 2.3 MG/DL Final WBC (WHITE BLOOD COUNT) 12/23/2023 5.2 3.6 - 11.0 10*3/uL Final RBC 12/23/2023 4.82 4.0 - 5.4 10*6/uL Final HEMOGLOBIN (HGB) 12/23/2023 15.2 12.0 - 16.0 G/DL Final HEMATOCRIT (HCT) 12/23/2023 44.5 36.0 - 48.0 % Final MEAN CELL VOLUME 12/23/2023 92.5 80.0 - 100.0 FL Final Mean Cell HGB 12/23/2023 31.5 26.0 - 35.0 PG Final MEAN CELL HGB CONCENTRATION 12/23/2023 34.1 27.0 - 37.0 G/DL Final RBC DISTRIBUTION 12/23/2023 14.7 (H) 11.5 - 14.5 % Final PLATELET COUNT 12/23/2023 306 130 - 400 10*3/uL Final MEAN PLATELET VOLUME 12/23/2023 7.1 (L) 7.4 - 11.0 FL Final DIFFERENTIAL TYPE 12/23/2023 AUTO DIFF % Final NEUTROPHILS 12/23/2023 53.2 37.0 - 75.0 % Final LYMPHOCYTE 12/23/2023 38.3 20.0 - 55.0 % Final MONOCYTE % 12/23/2023 5.0 0.0 - 10.0 % Final EOSINOPHIL % 12/23/2023 2.4 0.0 - 11.0 % Final BASOPHIL % 12/23/2023 1.1 0.0 - 2.0 % Final Absolute Neutrophil Count 12/23/2023 2.8 1.4 - 6.5 10*3/uL Final LYMPHOCYTES, ABSOLUTE 12/23/2023 2.0 1.2 - 3.4 10*3/uL Final MONOCYTES, ABSOLUTE 12/23/2023 0.3 0.0 - 0.7 10*3/uL Final ABSOLUTE EOSINOPHIL COUNT 12/23/2023 0.1 0.0 - 0.7 10*3/uL Final ABSOLUTE BASOPHIL COUNT 12/23/2023 0.1 0.0 - 0.2 10*3/uL Final PROTEIN MG/DL-URINE 12/23/2023 29 (H) 0 - 12 MG/DL Final CREATININE, MG/DL, URINE 12/23/2023 97.2 MG/DL Final NO NORMAL VALUES ESTABLISHED FOR RANDOM SPECIMENS PROTEIN/CREAT RATIO, URINE 12/23/2023 0.3 Final Comment: REFERENCE RANGES <0.2 NORMAL 0.2-3.5 NON-NEPHROTIC >3.5 NEPHROTIC COLOR, URINE 12/23/2023 YELLOW YELLOW Final APPEARANCE, URINE 12/23/2023 CLEAR CLEAR Final Specific [place], Urine 12/23/2023 1.020 1.010 - 1.025 Final PH URINE 12/23/2023 6.0 5.0 - 7.0 Final Urine Protein 12/23/2023 TRACE (A) NEGATIVE mg/dl Final GLUCOSE, URINE 12/23/2023 >1000 (A) NEGATIVE mg/dl Final KETONES, URINE 12/23/2023 NEGATIVE NEGATIVE mg/dl Final BILIRUBIN, URINE 12/23/2023 NEGATIVE NEGATIVE Final BLOOD, URINE DIPSTICK 12/23/2023 NEGATIVE NEGATIVE Final NITRITES, URINE 12/23/2023 NEGATIVE NEGATIVE Final UROBILINOGEN, URINE 12/23/2023 0.2 0.2 - 1.0 E.U./dL Final LEUKOCYTE ESTERASE, URINE 12/23/2023 NEGATIVE NEGATIVE Final SODIUM, URINE RANDOM 12/23/2023 139 (H) 30 - 90 MMOL/L Final WBC, URINE 12/23/2023 NEGATIVE NEGATIVE /HPF Final RBC, URINE 12/23/2023 NEGATIVE NEGATIVE /HPF Final Epithelial Cells UA 12/23/2023 NONE /HPF Final Mucus 12/23/2023 NEGATIVE NEGATIVE Final BACTERIA, URINE 12/23/2023 NEGATIVE NEGATIVE Final CRYSTALS, URINE 12/23/2023 NONE NONE Final CASTS, URINE 12/23/2023 NONE NONE /LPF Final COMMENT, URINE 12/23/2023 CULTURE CRITERIA NOT MET, NO CULTURE PERFORMED. Final LABS Labs-ABGs @ABGROUNDS@ Labs-CBC @[email or web address]@ Labs-Chem 7([facility]) Bun/Creat/Cl/CO2/Glucose: 26/10.60/108/26/102 (12/22 1410) @NAJMAROUNDS@ Labs-Coags WBC (WHITE BLOOD COUNT) Date Value Ref Range Status 12/23/2023 5.2 3.6 - 11.0 10*3/uL Final 10/14/2023 5.0 3.6 - 11.0 10*3/uL Final 07/08/2023 6.6 3.6 - 11.0 10*3/uL Final HEMOGLOBIN (HGB) Date Value Ref Range Status 12/23/2023 15.2 12.0 - 16.0 G/DL Final 10/14/2023 14.7 12.0 - 16.0 G/DL Final 07/08/2023 13.5 12.0 - 16.0 G/DL Final HEMATOCRIT (HCT) Date Value Ref Range Status 12/23/2023 44.5 36.0 - 48.0 % Final 10/14/2023 44.9 36.0 - 48.0 % Final 07/08/2023 41.0 36.0 - 48.0 % Final PLATELET COUNT Date Value Ref Range Status 12/23/2023 306 130 - 400 10*3/uL Final 10/14/2023 290 130 - 400 10*3/uL Final 07/08/2023 305 130 - 400 10*3/uL Final SODIUM Date Value Ref Range Status 12/23/2023 140 137 - 145 MMOL/L Final 10/14/2023 137 137 - 145 MMOL/L Final 07/08/2023 140 137 - 145 MMOL/L Final CHLORIDE Date Value Ref Range Status 12/23/2023 108 (H) 98 - 107 MMOL/L Final Comment: Please note: Triglyceride levels of 600mg/dL or higher may positively bias chloride results by approximately 2.1 mmol 10/14/2023 105 98 - 107 MMOL/L Final Comment: Please note: Triglyceride levels of 600mg/dL or higher may positively bias chloride results by approximately 2.1 mmol 07/08/2023 110 (H) 98 - 107 MMOL/L Final Comment: Please note: Triglyceride levels of 600mg/dL or higher may positively bias chloride results by approximately 2.1 mmol BUN Date Value Ref Range Status 12/23/2023 21 (H) 7 - 20 MG/DL Final 10/14/2023 24 (H) 7 - 20 MG/DL Final 07/08/2023 22 (H) 7 - 20 MG/DL Final POTASSIUM Date Value Ref Range Status 12/23/2023 3.9 3.5 - 5.1 MMOL/L Final 10/14/2023 4.0 3.5 - 5.1 MMOL/L Final 07/08/2023 4.0 3.5 - 5.1 MMOL/L Final CREATININE SERUM Date Value Ref Range Status 12/23/2023 1.60 (H) 0.70 - 1.20 MG/DL Final 10/14/2023 1.50 (H) 0.70 - 1.20 MG/DL Final 07/08/2023 1.61 (H) 0.70 - 1.20 MG/DL Final Glucose Date Value Ref Range Status 12/23/2023 102 (H) 70 - 100 MG/DL Final Comment: NORMAL <100 mg/dL PREDIABETES 101-126 mg/dL DIABETES 126 mg/dL or higher 10/14/2023 103 (H) 70 - 100 MG/DL Final Comment: NORMAL <100 mg/dL PREDIABETES 101-126 mg/dL DIABETES 126 mg/dL or higher 07/08/2023 91 70 - 100 MG/DL Final Comment: NORMAL <100 mg/dL PREDIABETES 101-126 mg/dL DIABETES 126 mg/dL or higher PROTEIN, TOTAL Date Value Ref Range Status 01/16/2023 7.0 6.3 - 8.2 GM/DL Final 09/09/2022 6.7 6.3 - 8.2 GM/DL Final Albumin Date Value Ref Range Status 12/23/2023 4.3 3.5 - 5.0 G/dl Final 10/14/2023 3.8 3.5 - 5.0 G/dl Final 07/08/2023 3.8 3.5 - 5.0 G/dl Final AST [...] Final CALCIUM Date Value Ref Range Status 12/23/2023 9.4 8.4 - 10.2 MG/DL Final 10/14/2023 9.8 8.4 - 10.2 MG/DL Final 07/08/2023 9.1 8.4 - 10.2 MG/DL Final PHOSPHORUS Date Value Ref Range Status 12/23/2023 3.4 2.5 - 4.5 MG/DL Final 10/14/2023 3.9 2.5 - 4.5 MG/DL Final 07/08/2023 3.4 2.5 - 4.5 MG/DL Final MAGNESIUM Date Value Ref Range Status 12/23/2023 2.3 1.6 - 2.3 MG/DL Final 10/14/2023 2.4 (H) 1.6 - 2.3 MG/DL Final 07/08/2023 2.2 1.6 - 2.3 MG/DL Final Lab Results Component Value Date CREATURINE 97.2 12/23/2023 CREATSERUM 1.60 (H) 12/23/2023 BUN 21 (H) 12/23/2023 SODIUM 140 12/23/2023 POTASSIUM 3.9 12/23/2023 CHLORIDE 108 (H) 12/23/2023 CO2 26 12/23/2023 ROS: Constitution: No fever, no chill HEENT: No headache, no sinus issues CV: No chest pain, no palpitation Lung: No cough, No SOB Abd: No diarrhea, no constipation Neuro: No seizure, no loss of consciousness Heme: No bleeding, no bruise PHYSICAL EXAM: Wt Readings from Last 3 Encounters: 12/24/23 76.8 kg (169 lb 6.4 oz) 09/21/23 70.3 kg (155 lb) 09/10/23 74.3 kg (163 lb 12.8 oz) Temp Readings from Last 3 Encounters: 09/21/23 97.1 F (36.2 C) (Temporal) 09/10/23 97.7 F (36.5 C) (Temporal) 07/11/23 97.8 F (36.6 C) BP Readings from Last 3 Encounters: 12/24/23 118/70 10/15/23 129/70 09/21/23 141/68 Pulse Readings from Last 3 Encounters: 12/24/23 75 10/15/23 75 09/21/23 74 Gen: NAD, lying in bed, conversant HEENT: Atraumatic, PERRLA, moist membrane CV: RRR, nl S1 and S2, no m/g/r Lung: CTAB, no wheezing, no crackle Abd: +BS, nontender, no distended Ext: No rash, no clubbing, no cyanosis. No edema. Neuro: CNII-XII grossly intact, 5/5 strength, normal tone Skin: Warm and dry documented in this encounter [facility] 10-21-2023 Procedure note [facility] 10-21-2023 Procedure note [facility] 09-21-2023 History of Presen t illness Narrative HPI Azeb Hutchison female 1965 [facility] with Chief Complaint Patient [...] (Temporal) Resp 16 Ht 1.6 m (5' 3") Wt 70.3 kg (155 lb) SpO2 98% [...] IVETH Wilson 09/21/2023 documented in this encounter [facility] 09-10-2023 History of Presen t illness Narrative No notes on file Clinical office clerk assistant/AT/MA was acting as a scribe today [...] That Relieve Pain: rest 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 [...] will see the patient back for a rqzg-[id number]-diqt encounter to review results, re-evaluate as needed and guide any further treatment. "Red Flags" for blood clot discussed, which would warrant [...] (36.5 C) (Temporal) Ht 1.6 m (5' 3") Wt 74.3 kg (163 lb 12.8 oz) BMI 29.02 kg/m *Time components listed in minutes below. This data may or may not be needed for insurance reimbursement purposes. Reviewing clinical note(s) from previous visit/ER/urgent care/PCP/other specialists 4 Review of medical history 4 Review of medical surgery nurse or green jobs trainer note 4 Independently obtain and review medical history and history of present illness with patient 4 Other counseling and coordination of care 7 Updating patient chart, documentation of clinical encounter and signing of orders 7 Medication ordering and discussion of risks, benefits and alternatives 3 *Portions of this note may have been created with [employer] or other software which leads to grammatical and typographical errors which are not product sales representative of the intent with my spoken words. Clinical office clerk assistant/AT/MA was acting as a scribe today for this note. I have performed all essential components of the history, and physical exam. I have confirmed the diagnosis and developed a plan of care at this visit. I have reviewed the note following the visit and have made edits as appropriate to my evaluation and plan of care. 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 [...] will see the patient back for a jatg-qp-asxa encounter to review results, re-evaluate as needed and guide any further treatment. "Red Flags" for blood clot discussed, which would warrant [...] (36.5 C) (Temporal) Ht 1.6 m (5' 3") Wt 74.3 kg (163 lb 12.8 oz) BMI 29.02 kg/m *Time components listed in minutes below. This data may or may not be needed for insurance reimbursement purposes. Reviewing clinical note(s) from previous visit/ER/urgent care/PCP/other specialists 4 Review of medical history 4 Review of medical surgery nurse or green jobs trainer note 4 Independently obtain and review medical history and history of present illness with patient 4 Other counseling and coordination of care 7 Updating patient chart, documentation of clinical encounter and signing of orders 7 Medication ordering and discussion of risks, benefits and alternatives 3 *Portions of this note may have been created with [employer] or other software which leads to grammatical and typographical errors which are not product sales representative of the intent with my spoken [...] That Relieve Pain: rest 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 [...] will see the patient back for a dhbd-vg-pyfi encounter to review results, re-evaluate as needed and guide any further treatment. "Red Flags" for blood clot discussed, which would warrant [...] (36.5 C) (Temporal) Ht 1.6 m (5' 3") Wt 74.3 kg (163 lb 12.8 oz) BMI 29.02 kg/m *Time components listed in minutes below. This data may or may not be needed for insurance reimbursement purposes. Reviewing clinical note(s) from previous visit/ER/urgent care/PCP/other specialists 4 Review of medical history 4 Review of medical surgery nurse or green jobs trainer note 4 Independently obtain and review medical history and history of present illness with patient 4 Other counseling and coordination of care 7 Updating patient chart, documentation of clinical encounter and signing of orders 7 Medication ordering and discussion of risks, benefits and alternatives 3 *Portions of this note may have been created with [employer] or other software which leads to grammatical and typographical errors which are not product sales representative of the intent with my spoken words. Clinical office clerk assistant/AT/MA was acting as a scribe today for this note. I have performed all essential components of the history, and physical exam. I have confirmed the diagnosis and developed a plan of care at this visit. I have reviewed the note following the visit and have made edits as appropriate to my evaluation and plan of care. 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 [...] will see the patient back for a nyua-qz-fzna encounter to review results, re-evaluate as needed and guide any further treatment. "Red Flags" for blood clot discussed, which would warrant [...] (36.5 C) (Temporal) Ht 1.6 m (5' 3") Wt 74.3 kg (163 lb 12.8 oz) BMI 29.02 kg/m *Time components listed in minutes below. This data may or may not be needed for insurance reimbursement purposes. Reviewing clinical note(s) from previous visit/ER/urgent care/PCP/other specialists 4 Review of medical history 4 Review of medical surgery nurse or green jobs trainer note 4 Independently obtain and review medical history and history of present illness with patient 4 Other counseling and coordination of care 7 Updating patient chart, documentation of clinical encounter and signing of orders 7 Medication ordering and discussion of risks, benefits and alternatives 3 *Portions of this note may have been created with [employer] or other software which leads to grammatical and typographical errors which are not product sales representative of the intent with my spoken words. Clinical office clerk assistant/AT/MA was acting as a scribe today [...] Debra Max DO documented in this encounter [facility] 08-12-2023 Progress note Note Date/Time August 12, 2023 8:33am [facility] Medical Records Department [address] [place] [address] Progress Note - Surgery 08/12/2326 MR#: [id number] Acct: [id number] Name: AZEB HUTCHISON V Rep #:[id number] : 1965 57 From: Zoila VENCES PA-C PCP: Dr. Rehana Hernandez MD Status:ADM IN [place] [facility] [id number] Subjective Subjective Patient is a 57 y/o F I am following in conjunction with Dr. Moralez. Patient denies abdominal pain this morning. She denies nausea, vomiting. She is tolerating her transitional diet. She voices she is ready to go home. Patient states she had meeting with the dietitian yesterday to discuss diet moving forward. Objective Data Objective Data Vital Signs: Vital Signs Temp Pulse Resp BP Pulse Ox O2 Del Method 98.3 F 61 18 158/87 H 100 Room Air 08/12/23 05:43 08/12/23 05:43 08/12/23 05:43 08/12/23 05:43 08/12/23 05:43 08/12/23 05:43 Oxygen Delivery Method Room Air Weight: 159 lb 6.307 oz Body Mass Index (BMI) 28.2 Intake & Output: Intake and Output for Last 24 Hours 08/10/23 08/11/23 08/12/23 23:59 23:59 23:59 Intake Total 3556.25 / 3556.25 Balance 3556.25 / 3556.25 Lab / Micro Data 08/12/23 07:25 08/11/23 06:25 Labs: Laboratory Results - last 24 hr 08/12/23 07:25: WBC 3.5 L, RBC 4.15 L, Hgb 12.4, Hct 38.0, MCV 91.6, MCH 29.9, MCHC 32.6, RDW Std Deviation 44.8 H, RDW Coeff of Darlene 13.3, Plt Count 279, MPV 8.9, Immature Gran % (Auto) 0.300, Neut % (Auto) 44.9 L, Lymph % (Auto) 35.3, Thurston % (Auto) 13.6 H, Eos % (Auto) 4.8, Baso % (Auto) 1.1 H, Absolute Neuts (auto) 1.6 L, Absolute Lymphs (auto) 1.25, Nucleated RBC % 0 Physical Exam GI normal to inspection, nondistended, normoactive bowel sounds, soft to palpation,non-tender and non-distended Assessment & Plan Assessment/Plan (1) Sigmoid diverticulitis: PLAN: Continue low fiber diet for 2 additional weeks Recommend Cipro and Flagyl for a total of 14 days. Prescriptions will be sent [facility]. Follow-up in [address] Moralez Patient is ready for discharge Charges/Coding Visit Charges Inpatient E&M: 54265 Subs Hosp L1 08/12/23 0833 <Electronically signed by Zoila VENCES PA-C> Cosigner Signature (if applicable): CC: ~ Signed [facility] Work Phone: 1(975) 888-675511-06-2023 Progress note Author Letha Hebert [facility] August 11, 2023 4:26pm Note Date/Time August 11, 2023 1 :22pm [facility] Medical Records Department [address] [place] [address] Progress Note - Hospitalist 08/11/23 1322 MR#: [id number] Acct: [id number] Name: AZEB HUTCHISON V Rep #:[id number] : 1965 57 From: Letha Hebert MD PCP: Dr. Rehana Hernandez MD Status:ADM IN [place] [facility] [id number] Reason for Visit Reason for Visit: Diagnoses Diverticulitis of large intestine without perforation or abscess without bleeding (08/07/23) Unspecified abdominal pain (08/07/23) Subjective Subjective Still has some abdominal tenderness and cramping, had diarrhea yesterday after her oral contrast but it is slowed down today. Had not tolerated her diet yesterday and was backed off to full liquids which she is now tolerating Objective Data Objective Data Vital Signs: Vital Signs Temp Pulse Resp BP Pulse Ox O2 Del Method 97.6 F L 62 18 136/86 H 100 Room Air 08/11/23 11:00 08/11/23 11:00 08/11/23 11:00 08/11/23 11:00 08/11/23 11:00 08/11/23 11:00 Oxygen Delivery Method Room Air Weight: 72.3 kg Body Mass Index (BMI) 28.2 Intake & Output: Intake and Output for Last 24 Hours 08/10/23 08/10/23 08/11/23 00:59 23:59 23:59 Intake Total 1677.08 / 1677.08 Balance 1677.08 / 1677.08 Lab / Micro Data 08/11/23 06:25 08/11/23 06:25 Labs: Laboratory Results - last 24 hr 08/11/23 06:25: WBC 3.3 L, RBC 4.08 L, Hgb 12.3, Hct 38.1, MCV 93.4, MCH 30.1, MCHC 32.3, RDW Std Deviation 45.7 H, RDW Coeff of Darlene 13.4, Plt Count 247, MPV 8.5, Immature Gran % (Auto) 0.300, Neut % (Auto) 42.5 L, Lymph % (Auto) 35.3, Thurston % (Auto) 13.4 H, Eos % (Auto) 7.3 H, Baso % (Auto) 1.2 H, Absolute Neuts (auto) 1.4 L, Absolute Lymphs (auto) 1.16, Nucleated RBC % 0, Sodium 143, Potassium 3.8, Chloride 113 H, Carbon Dioxide 25.0, Anion Gap 5, BUN 8, Creatinine 1.56 H, Estim Creat Clear Calc 32.12, Est GFR (MDRD) Af Amer 44 L, Est GFR (MDRD) Non-Af 36 L, BUN/Creatinine Ratio 5.1 L, Glucose 93, Calcium 8.7 Radiography Diagnostic Testing: Radiology Impression Abdomen/Pelvis CT 08/10/23 14:45 IMPRESSION: Improved sigmoid diverticulitis without abscess or perforation. Electronically Signed: Richard Crenshaw MD at 18:16 EST , Physical Exam Narrative General: Alert, oriented, no apparent distress HEENT: Atraumatic, normocephalic Eyes: Anicteric, normal conjunctiva, extraocular movements grossly intact Neck: Supple Respiratory: Clear to auscultation bilaterally, normal respiratory effort Cardiovascular: Regular rate and rhythm GI: Soft, nondistended, voluntary guarding and tenderness in center of abdomen without rebound or rigidity Extremities: No edema Musculoskeletal: Moving all extremities Neuro: No overt focal neurological deficits Skin: No rashes appreciated Psych: Cooperative Assessment & Plan Assessment/Plan (1) Sigmoid diverticulitis: PLAN: Plan Patient is a 57-year-old lady with previous history of diverticulitis who presented with abdominal pain. CT of the abdomen and pelvis obtained on admission demonstrated sigmoid diverticulosis with acute sigmoid diverticulitis. Admitted to regular nursing floor for further management 1. Acute sigmoid diverticulitis ? Admitted to regular nursing floor management Cipro and Flagyl in addition to pain management and IV fluid consult was placed to general surgery ? 08/09/2023; Patient seen still complains of some abdominal discomfort. Patientapparently did not tolerate clear liquid the day prior was subsequently kept on only sips. Patient is requesting a trial of clear liquid this a.m. Case discussed with general surgery plan is for repeat imaging studies if patient symptoms do not improve ? 08/10/2023atient complains of having experienced epigastric discomfort during the night. Subsequently started on Protonix. She did tolerate clear liquid plan is advance as tolerated. -08/11: Did not tolerate advanced diet yesterday, tolerated fulls today. Discussed with surgery, will advance to transitional this evening to assess how well patient tolerates 2. Chronic kidney disease stage III ? Kidney function at baseline 3. Mild intermittent asthma ? Did continue patient bronchodilator treatment regimen 4. Glaucoma ? Did continue with eyedrops as previously prescribed 5. DVT prophylaxis ? SC Lovenox Time spent in the patient's overall evaluation,decision-making process, review of diagnostic data, adjustment of management, discussion with other providers, nursing nursing and ancillary staff involved in patient's care documentation, 35 Minutes Charges/Coding Visit Charges Inpatient E&M: 96613 Subs Hosp L2 08/11/23 1626 <Electronically signed by Letha Hebert MD> Cosigner Signature (if applicable): CC: ~ Signed [facility] Work Phone: 1(201) 585-561711-06-2023 Progress note Author Rashad Moralez [facility] August 11, 2023 1:17pm Note Date/Time August 11, 2023 1 :17pm [facility] Medical Records Department [address] [place] [id number] Progress Note - Surgery 08/11/23 1312 MR#: [id number] Acct: [id number] Name: AZEB HUTCHISON V Rep #:[id number] : 1965 57 From: Rashad Gonzales PCP: Dr. Rehana Hernandez MD Status:ADM IN Location: [place] [address] Subjective Subjective Patient seen and examined during AM rounds. She is tearful upon entering. She proclaims that "the 2 doctors are not on the same page over the weekend". She feels confused about what food she is to be trying and what food she is to be excluded. She also wishes to know more globally why this keeps happening to herdespite her intentions for healthy eating and exercise habits. She reports somepersistent discomfort in her lower abdomen. Objective Data Objective Data Vital Signs: Vital Signs Temp Pulse Resp BP Pulse Ox O2 Del Method 97.6 F L 62 18 136/86 H 100 Room Air 08/11/23 11:00 08/11/23 11:00 08/11/23 11:08/11/23 11:08/11/23 11:23 11:00 Oxygen Delivery Method Room Air Weight: 159 lb 6.307 oz Body Mass Index (BMI) 28.2 Intake & Output: Intake and Output for Last 24 Hours 08/10/23 08/10/23 08/11/23 00:59 23:59 23:59 Intake Total 1477.08 / 1477.08 Balance 1477.08 / 1477.08 Lab / Micro Data 08/11/23 06:25 08/11/23 06:25 Labs: Laboratory Results - last 24 hr 08/11/23 06:25: WBC 3.3 L, RBC 4.08 L, Hgb 12.3, Hct 38.1, MCV 93.4, MCH 30.1, MCHC 32.3, RDW Std Deviation 45.7 H, RDW Coeff of Darlene 13.4, Plt Count 247, MPV 8.5, Immature Gran % (Auto) 0.300, Neut % (Auto) 42.5 L, Lymph % (Auto) 35.3, Thurston % (Auto) 13.4 H, Eos % (Auto) 7.3 H, Baso % (Auto) 1.2 H, Absolute Neuts (auto) 1.4 L, Absolute Lymphs (auto) 1.16, Nucleated RBC % 0, Sodium 143, Potassium 3.8, Chloride 113 H, Carbon Dioxide 25.0, Anion Gap 5, BUN 8, Creatinine 1.56 H, Estim Creat Clear Calc 32.12, Est GFR (MDRD) Af Amer 44 L, Est GFR (MDRD) Non-Af 36 L, BUN/Creatinine Ratio 5.1 L, Glucose 93, Calcium 8.7 Radiography Diagnostic Testing: Radiology Impression Abdomen/Pelvis CT 08/10/23 14:45 IMPRESSION: Improved sigmoid diverticulitis without abscess or perforation. Electronically Signed: Richard Crenshaw MD at 18:16 EST , Physical Exam Const oriented x3 Constitutional Narrative: Mild distress?but this appears to be primarily agitation with prolonged stay anduncertainty Resp normal respiratory effort GI GI Narrative: Nondistended, soft, mildly tender to palpation of the left lower quadrant and suprapubic positions Assessment & Plan Assessment/Plan (1) Sigmoid diverticulitis: PLAN: Patient with some persistent left lower quadrant discomfort that is gradually improving. Repeat CT imaging of the abdomen pelvis was performed yesterday due to some recurrence of her discomfort, however, this showed improvements?radiographically speaking?of the diverticular inflammation. I tried to clarify with Mrs. Hutchison at bedside that they are different management patterns and treatment decisions that are made with respect to diverticulitis and this is largely owing to the disparity in the treatment recommendations thatare given from authoritative sources. I have tried to reassure her that likely her recurrent symptoms have very little to do?if anything?with her dietary or exercise habits. At this point I have recommended that she advance to a full liquid diet with protein supplementation and we will monitor for tolerance before trying to advance her further. Charges/Coding Visit Charges Inpatient E&M: 40558 Subs Hosp L2 08/11/23 1317 <Electronically signed by Rashad Moralez MD> Cosigner Signature (if applicable): CC: ~ Signed [facility] Work Phone: 1(962) 955-711711-05-2023 Progress note Author Zen Hansen [facility] August 10, 2023 5:40pm Note Date/Time August 10, 2023 5 :40pm [facility] Medical Records Department [address] [place] [address] Progress Note 08/10/231738 MR#: [id number] Acct: [id number] Name: AZEB HUTCHISON V Rep #:[id number] : 1965 57 From: Zen nance MD PCP: Dr. Rehana Hernandez MD Status:ADM IN [place]: [facility] [place] Progress Note The patient asked to be advanced on her diet today and once she was advanced shestarted having more pain. I putting her back down to clear liquids and repeating a CT scan with oral and IV contrast. Zen Hansen MD Pager: [facility] [address] [place] [address], [address] [place] [address] Office: 08/10/23 1740 <Electronically signed by Zen Hansen MD> Zen aHnsen MD Cosigner Signature (if applicable): CC: ~ Signed [facility] Work Phone: 1(855) 778-354911-05-2023 Progress note Author Lizbeth Gaston [facility] August 10, 2023 8:33am Note Date/Time August 10, 2023 7 :25am [facility] Medical Records Department [address] [place] [address] Progress Note - Hospitalist 08/10/23 0725 MR#: [id number] Acct: [id number] Name: AZEB HUTCHISON V Rep #:[id number] : 1965 57 From: Lizbeth Gaston MD PCP: Dr. Rehana Hernandez MD Status:ADM IN [place]: [facility] [place]11-8 Reason for Visit Reason for Visit: Diagnoses Diverticulitis of large intestine without perforation or abscess without bleeding (08/07/23) Subjective Subjective Patient complains of having experienced epigastric discomfort during the night. Subsequently started on Protonix. She did tolerate clear liquid plan is advanceas tolerated. Objective Data Objective Data Vital Signs: Vital Signs Temp Pulse Resp BP Pulse Ox O2 Del Method 98.6 F 73 18 138/75 H 97 Room Air 08/10/23 05:14 08/10/23 05:14 08/10/23 05:14 08/10/23 05:14 08/10/23 05:14 08/10/23 05:14 Oxygen Delivery Method Room Air Weight: 72.3 kg Body Mass Index (BMI) 28.2 Intake & Output: Intake and Output for Last 24 Hours 08/08/23 08/09/23 08/10/23 23:59 23:59 22:59 Intake Total 4000.0 / 4000.0 2529.17 / 2629.17 1300 / 1300 Output Total 500 / 500 Balance 3500.0 / 3500.0 2529.17 / 2629.17 1300 / 1300 Lab / Micro Data 08/10/23 06:50 08/10/23 06:50 Physical Exam Narrative GENERAL: cooperative HEENT: Atraumatic; normocephalic EYES; Anicteric, Normal Conjunctiva NECK; supple, normal thyroid, RESPIRATORY: Diminished to auscultation CARDIOVASCULAR: Regular S1 S2, GI: soft, normoactive bowel sounds, LLQ tenderness : No Renal angle tenderness; EXTREMITIES: No edema, no clubbing, MUSCULOSKELETAL: no muscle wasting NEURO: Awake; no lateralizing signs. SKIN: No Rash PSYCH; Flat affect Assessment & Plan Assessment/Plan (1) Sigmoid diverticulitis: PLAN: Plan Patient is a 57-year-old lady with previous history of diverticulitis who presented with abdominal pain. CT of the abdomen and pelvis obtained on admission demonstrated sigmoid diverticulosis with acute sigmoid diverticulitis. Admitted to regular nursing floor for further management 1. Acute sigmoid diverticulitis ? Admitted to regular nursing floor management Cipro and Flagyl in addition to pain management and IV fluid consult was placed to general surgery ? 08/09/2023; Patient seen still complains of some abdominal discomfort. Patientapparently did not tolerate clear liquid the day prior was subsequently kept on only sips. Patient is requesting a trial of clear liquid this a.m. Case discussed with general surgery plan is for repeat imaging studies if patient symptoms do not improve ? 08/10/2023atient complains of having experienced epigastric discomfort during the night. Subsequently started on Protonix. She did tolerate clear liquid plan is advance as tolerated. 2. Chronic kidney disease stage III ? Kidney function at baseline 3. Mild intermittent asthma ? Did continue patient bronchodilator treatment regimen 4. Glaucoma ? Did continue with eyedrops as previously prescribed 5. DVT prophylaxis ? SC Lovenox Time spent in the patient's overall evaluation,decision-making process, review of diagnostic data, adjustment of management, discussion with other providers, nursing nursing and ancillary staff involved in patient's care documentation, 35 Minutes Charges/Coding Visit Charges Inpatient E&M: 50968 Subs Hosp L2 08/10/2333 <Electronically signed by Lizbeth Gaston MD> Cosigner Signature (if applicable): CC: ~ Signed [facility] Work Phone: 1(775) 804-161111-05-2023 Progress note Author Zen Hansen [facility] August 10, 2023 8:12am Note Date/Time August 10, 2023 8 :12am [facility] Medical Records Department [address] [place] [address] Progress Note - Surgery 08/10/23810 MR#: [id number] Acct: [id number] Name: AZEB HUTCHISON #:[id number] : 1965 57 From: Zen nance MD PCP: Dr. Rehana Hernandez MD Status:ADM IN Location: MS3 KS377-8 Subjective Subjective The patient reports a lot of improvement in her pain since yesterday evening butshe still does have pain. She did tolerate full liquids yesterday. She says she is not passing flatus which just started yesterday afternoon. Objective Data Objective Data Vital Signs: Vital Signs Temp Pulse Resp BP Pulse Ox O2 Del Method 98.6 F 73 18 138/75 H 97 Room Air 08/10/23 05:14 08/10/23 05:14 08/10/23 05:14 08/10/23 05:14 08/10/23 05:14 08/10/23 05:14 Oxygen Delivery Method Room Air Weight: 159 lb 6.307 oz Body Mass Index (BMI) 28.2 Intake & Output: Intake and Output for Last 24 Hours 08/08/23 08/09/23 08/10/23 23:59 23:59 22:59 Intake Total 4000.0 / 4000.0 2529.17 / 2629.17 1300 / 1300 Output Total 500 / 500 Balance 3500.0 / 3500.0 2529.17 / 2629.17 1300 / 1300 Lab / Micro Data 08/09/23 06:23 08/09/23 06:23 Physical Exam Const oriented x3 and no apparent distress Resp normal respiratory effort GI soft to palpation Palpation: tender LLQ Assessment & Plan Assessment/Plan (1) Sigmoid diverticulitis: PLAN: The patient does still have some mild left lower quadrant tenderness to deep palpation. I will continue full liquids until the pain is fully resolved and then advance diet. She may have to stay another day as I do not want to advance her diet while she is still having tenderness. If she has resolution ofher pain today I will try regular diet and possibly discharge her home on oral antibiotics this evening. Zen Hansen MD Pager: [facility] [address] [place] [address], [address] [place] [address] Office: 08/10/23 0812 <Electronically signed by Zen Hansen MD> Cosigner Signature (if applicable): CC: ~ Signed [facility] Work Phone: 1(348) 797-555511-04-2023 Progress note Author Lizbeth Gaston [facility] August 09, 2023 10:36am Note Date/Time August 09, 2023 6 :55am [facility] Medical Records Department [address] [place] [address] Progress Note - Hospitalist 08/09/23 0655 MR#: [id number] Acct: [id number] Name: AZEB HUTCHISON V Rep #:[id number] : 1965 57 From: Lizbeth Gaston MD PCP: Dr. Rehana Hernandez MD Status:ADM IN [place] [facility] [id number] Reason for Visit Reason for Visit: Diagnoses Diverticulitis of large intestine without perforation or abscess without bleeding (08/07/23) Subjective Subjective Patient seen still complains of some abdominal discomfort. Patient apparently did not tolerate clear liquid the day prior was subsequently kept on only sips. Patient is requesting a trial of clear liquid this a.m. Case discussed with general surgery plan is for repeat imaging studies if patient symptoms do not improve Objective Data Objective Data Vital Signs: Vital Signs Temp Pulse Resp BP Pulse Ox O2 Del Method 98.9 F 67 14 102/58 L 99 Room Air 08/09/23 02:18 08/09/23 02:18 08/09/23 02:18 08/09/23 02:18 08/09/23 02:18 08/09/23 02:18 Oxygen Delivery Method Room Air Weight: 72.3 kg Body Mass Index (BMI) 28.2 Intake & Output: Intake and Output for Last 24 Hours 08/07/23 08/08/23 08/09/23 23:59 23:59 23:59 Intake Total 100 / 100 4000.0 / 4000.0 1062.5 / 1062.5 Output Total 500 / 500 Balance 100 / 100 3500.0 / 3500.0 1062.5 / 1062.5 Lab / Micro Data 08/09/23 06:23 08/09/23 06:23 Labs: Laboratory Results - last 24 hr 08/08/23 06:25: WBC 7.1, RBC 4.36, Hgb 13.0, Hct 40.9, MCV 93.8 D, MCH 29.8, MCHC 31.8 L, RDW Std Deviation 48.2 H, RDW Coeff of Darlene 13.9, Plt Count 278, MPV8.9, Immature Gran % (Auto) 0.300, Neut % (Auto) 68.5, Lymph % (Auto) 19.4, Thurston% (Auto) 10.5 H, Eos % (Auto) 0.6, Baso % (Auto) 0.7, Absolute Neuts (auto) 4.9,Absolute Lymphs (auto) 1.38, Nucleated RBC % 0, Sodium 141, Potassium 4.0, Chloride 111 H, Carbon Dioxide 22.0, Anion Gap 8, BUN 16, Creatinine 1.56 H, Estim Creat Clear Calc 32.12, Est GFR (MDRD) Af Amer 44 L, Est GFR (MDRD) Non-Af36 L, BUN/Creatinine Ratio 10.3, Glucose 93, Calcium 8.8, Total Bilirubin 0.50, AST 11 L, ALT 14, Alkaline Phosphatase 95, Total Protein 6.3 L, Albumin 2.8 L, Globulin 3.5, Albumin/Globulin Ratio 0.8 L 08/09/23 06:23: WBC 6.5, RBC 4.18 L, Hgb 12.5, Hct 39.9, MCV 95.5, MCH 29.9, MCHC 31.3 L, RDW Std Deviation 48.9 H, RDW Coeff of Darlene 13.7, Plt Count 250, MPV8.9, Immature Gran % (Auto) 0.200, Neut % (Auto) 65.8, Lymph % (Auto) 19.7, Thurston% (Auto) 10.2 H, Eos % (Auto) 3.2, Baso % (Auto) 0.9, Absolute Neuts (auto) 4.3,Absolute Lymphs (auto) 1.28, Nucleated RBC % 0 Physical Exam Narrative GENERAL: cooperative HEENT: Atraumatic; normocephalic EYES; Anicteric, Normal Conjunctiva NECK; supple, normal thyroid, RESPIRATORY: Diminished to auscultation CARDIOVASCULAR: Regular S1 S2, GI: soft, normoactive bowel sounds, LLQ tenderness : No Renal angle tenderness; EXTREMITIES: No edema, no clubbing, MUSCULOSKELETAL: no muscle wasting NEURO: Awake; no lateralizing signs. SKIN: No Rash PSYCH; Flat affect Assessment & Plan Assessment/Plan (1) Sigmoid diverticulitis: PLAN: Plan Patient is a 57-year-old lady with previous history of diverticulitis who presented with abdominal pain. CT of the abdomen and pelvis obtained on admission demonstrated sigmoid diverticulosis with acute sigmoid diverticulitis. Admitted to regular nursing floor for further management 1. Acute sigmoid diverticulitis ? Admitted to regular nursing floor management Cipro and Flagyl in addition to pain management and IV fluid consult was placed to general surgery ? 08/09/2023; Patient seen still complains of some abdominal discomfort. Patientapparently did not tolerate clear liquid the day prior was subsequently kept on only sips. Patient is requesting a trial of clear liquid this a.m. Case discussed with general surgery plan is for repeat imaging studies if patient symptoms do not improve 2. Chronic kidney disease stage III ? Kidney function at baseline 3. Mild intermittent asthma ? Did continue patient bronchodilator treatment regimen 4. Glaucoma ? Did continue with eyedrops as previously prescribed 5. DVT prophylaxis ? SC Lovenox Time spent in the patient's overall evaluation,decision-making process, review of diagnostic data, adjustment of management, discussion with other providers, nursing nursing and ancillary staff involved in patient's care documentation, 40 Minutes Charges/Coding Visit Charges Inpatient E&M: 62223 Subs Hosp L2 08/09/23 1036 <Electronically signed by Lizbeth Gaston MD> Cosigner Signature (if applicable): CC: ~ Signed [facility] Work Phone: 1(227) 370-624711-04-2023 Progress note Author Zen Hansen [facility] August 09, 2023 8:57am Note Date/Time August 09, 2023 8 :57am [facility] Medical Records Department [address] [place] [address] Progress Note - Surgery 08/09/23 0856 MR#: [id number] Acct: [id number] Name: FOSTERAZEB Radha Rep #:[id number] : 1965 57 From: Zen nance MD PCP: Dr. Rehana Hernandez MD Status:ADM IN Location: [place] [address]-1 Subjective Subjective Patient reports she tried a clear liquid diet yesterday but threw up 3 times afterwards. She reports that her left lower quadrant pain is improved from yesterday but is still present. Objective Data Objective Data Vital Signs: Vital Signs Temp Pulse Resp BP Pulse Ox O2 Del Method 98 F 65 16 117/66 99 Room Air 08/09/23 08:24 08/09/23 08:24 08/09/23 08:24 08/09/23 08:24 08/09/23 08:24 08/09/23 08:24 Oxygen Delivery Method Room Air Weight: 159 lb 6.307 oz Body Mass Index (BMI) 28.2 Intake & Output: Intake and Output for Last 24 Hours 08/07/23 08/08/23 08/09/23 23:59 23:59 23:59 Intake Total 100 / 100 4000.0 / 4000.0 1250.0 / 1250.0 Output Total 500 / 500 Balance 100 / 100 3500.0 / 3500.0 1250.0 / 1250.0 Lab / Micro Data 08/09/23 06:23 08/09/23 06:23 Labs: Laboratory Results - last 24 hr 08/09/23 06:23: WBC 6.5, RBC 4.18 L, Hgb 12.5, Hct 39.9, MCV 95.5, MCH 29.9, MCHC 31.3 L, RDW Std Deviation 48.9 H, RDW Coeff of Darlene 13.7, Plt Count 250, MPV8.9, Immature Gran % (Auto) 0.200, Neut % (Auto) 65.8, Lymph % (Auto) 19.7, Thurston% (Auto) 10.2 H, Eos % (Auto) 3.2, Baso % (Auto) 0.9, Absolute Neuts (auto) 4.3,Absolute Lymphs (auto) 1.28, Nucleated RBC % 0, Sodium 141, Potassium 3.9, Chloride 112 H, Carbon Dioxide 23.0, Anion Gap 6, BUN 14, Creatinine 1.68 H, Estim Creat Clear Calc 29.83, Est GFR (MDRD) Af Amer 40 L, Est GFR (MDRD) Non-Af33 L, BUN/Creatinine Ratio 8.3 L, Glucose 83, Calcium 8.4 L, Phosphorus 2.8, Magnesium 1.8 Physical Exam Const oriented x3 and no apparent distress Resp normal respiratory effort GI soft to palpation Palpation: tender LLQ Assessment & Plan Assessment/Plan (1) Sigmoid diverticulitis: PLAN: The patient has sigmoid diverticulitis and she has been here for 2 days now. She try clear liquids yesterday but she threw up. I advised her to cut itback down to just sips of clears and to wait until her pain is resolved before resuming a diet. Continue antibiotics and IV fluids. If she is still having pain tomorrow with no improvement and her white count remains normal I will repeat a CT scan with oral contrast to check for any changes in the abdomen thatcould be causing her increased pain. Zen Hansen MD Pager: [facility] [address] [place] [address], [address] [place] [phone] Office: 08/09/23 0857 <Electronically signed by Zen Hansen MD> Cosigner Signature (if applicable): CC: ~ Signed [facility] Work Phone: [phone]) 513-133111-03-2023 Consult note Author Rashad Moralez [facility] August 08, 2023 3:57pm Note Date/Time August 08, 2023 3 :57pm [facility] Medical Records Department [address] [place], [place] [id number] Consultation - Surgical 08/08/23 1551 MR#: [id number] Acct: [id number] Name: AZEB HUTCHISON V Rep #:[id number] : 1965 57 From: Rashad Gonzales PCP: Dr. Rehana Hernandez MD Status:ADM IN [place] [facility] [place] Assessment & Plan Assessment/Plan (1) Sigmoid diverticulitis: PLAN: This is a 57-year-old female with a history of recurrent, acute, uncomplicated diverticulitis who is admitted for management of her fourth episode. Notably she has no elevation of her white blood cell count and CT imaging confirms this diagnosis. I held a rather lengthy, detailed conversation with patient regarding the natural history of diverticulitis and the options for management?including elective colectomy once she is feeling better. At this time, I agree with a conservative course of management and recommend that she trial clear liquids with some protein supplementation and continue IV antibiotics. Would then plan to transition to oral antibiotics with hopeful improvements in her abdominal exam. I shared that then we could plan for outpatient follow-up and repeat colonoscopy in about 6 weeks. Patient was appreciative of information about diverticulitis, generally, and those questionsare answered specifically to her case. Surgery will continue to follow. HPI Consult Data Date of Consult: 08/08/23 HPI Narrative Reason for Consultation: Recurrent acute uncomplicated diverticulitis HPI Narrative: AZEB HUTCHISON, is a 57 F who presents to [facility] with complaints of what appears to be her fourth episode of acute, uncomplicated diverticulitis. She reports that her last episode was in October of this year. She reports her present discomfort began approximately 5 days ago with progressive left lower quadrant pain that has been described as "razor blades" in the left lower quadrant. She also notes a queasy feeling with eating and some "pressure" with urination. She also reports some associated fevers 2 days ago. Patient's ER work-up was notable for CBC that showed normal white blood cell count and CT imaging of the abdomen pelvis showed evidence of acute, uncomplicated diverticulitis. Patient states that her first episode of diverticulitis was diagnosed in either 2018 or 2019 and required an inpatient admission, however, subsequent episodes have been treated as an outpatient. She states that it takes about 2 weeks for her to recover fully. She denies any history of chronic constipation and reports that her bowel movements normally occur 2-3 times per day. She also reports trying to eat a healthy diet, drinking lots of water, minimizing seatingand not intake, and minimizing intake of red meats. Patient reports a colonoscopy in [address] Willams. She states there wereno significant findings. There is no family history of GI diagnoses?specifically no colon cancer. ON LICENSE OF [facility] Medical History (Updated 08/07/23 @ 18:31 by Lexi Dobson) Abdominal pain Anxiety Asthma Chronic kidney disease, stage 3 Former smoker Kidney disease Home Medications [id number] ac 400 mcg-calcium carb 500 mg-vit K1 20 mcg tablet 1 ea PO DAILY supplement 07/28/19 [History Last Taken Unknown] calcifediol 30 mcg capsule,24 hr,extended release (Rayaldee) 30 mcg PO DAILY DEFICIENCY 08/07/23 [History Last Taken Unknown] dapagliflozin propanediol 10 mg tablet (Farxiga) 10 mg PO QHS KIDNEY 08/07/23 [History Last Taken Unknown] levalbuterol HCl 1.25 mg/3 mL solution for nebulization 1.25 mg inhalation PRN ASTHMA 08/07/23 [History Last Taken Unknown] tafluprost (PF) 0.0015 % eye drops in a dropperette 1 drp ophthalmic (eye) QHS 08/07/23 [History Last Taken Unknown] albuterol sulfate 90 mcg/actuation aerosol inhaler 2 inh inhalation Q4H PRN shortness of breath or wheezing 08/08/23 [History Last Taken 04/07/23] Allergy/AdvReac Type Severity Reaction Status Date / Time morphine Allergy Rash Verified 08/07/23 11:53 Penicillins Allergy Hives Verified 08/07/23 11:53 albuterol AdvReac Mild Scratchy Verified 08/08/23 06:10 throat Surgical History S/P colonoscopy s/p fibroid removal S/P hysterectomy S/P tonsillectomy and adenoidectomy Status post breast reduction Status post surgical removal of ganglion cyst Social History Smoking Status: Former smoker alcohol intake: never Physical Exam Const alert and oriented x3 Constitutional Narrative: Patient in mild distress from abdominal discomfort, pleasant General Appearance: cooperative Resp normal respiratory effort GI GI Narrative: Lower transverse incision consistent with prior panniculectomy. Nondistended, soft, tender to palpation of the left lower quadrant and suprapubic positions Lab / Micro Data 08/08/23 06:25 08/08/23 06:25 Labs: Laboratory Results - last 24 hr 08/08/23 06:25: WBC 7.1, RBC 4.36, Hgb 13.0, Hct 40.9, MCV 93.8 D, MCH 29.8, MCHC 31.8 L, RDW Std Deviation 48.2 H, RDW Coeff of Darlene 13.9, Plt Count 278, MPV8.9, Immature Gran % (Auto) 0.300, Neut % (Auto) 68.5, Lymph % (Auto) 19.4, Thurston% (Auto) 10.5 H, Eos % (Auto) 0.6, Baso % (Auto) 0.7, Absolute Neuts (auto) 4.9,Absolute Lymphs (auto) 1.38, Nucleated RBC % 0, Sodium 141, Potassium 4.0, Chloride 111 H, Carbon Dioxide 22.0, Anion Gap 8, BUN 16, Creatinine 1.56 H, Estim Creat Clear Calc 32.12, Est GFR (MDRD) Af Amer 44 L, Est GFR (MDRD) Non-Af36 L, BUN/Creatinine Ratio 10.3, Glucose 93, Calcium 8.8, Total Bilirubin 0.50, AST 11 L, ALT 14, Alkaline Phosphatase 95, Total Protein 6.3 L, Albumin 2.8 L, Globulin 3.5, Albumin/Globulin Ratio 0.8 L Charges/Coding Visit Charges Inpatient E&M: 05432 Init Hosp L2 08/08/23 1557 <Electronically signed by Rashad Moralez MD> Cosigner Signature (if applicable): CC: Dr. Rehana Hernandez MD; Dr. Lizbeth Gomes DO; Dr. Rashad Moralez MD~ Signed [facility] Work Phone: 1(245) 998-500611-03-2023 Progress note Author Lizbeth Gaston [facility] August 08, 2023 9:16am Note Date/Time August 08, 2023 7 :26am [facility] Medical Records Department [address] [place] [address] Progress Note - Hospitalist 08/08/23 0726 MR#: [id number] Acct: [id number] Name: AZEB HUTCHISON V Rep #:[id number] : 1965 57 From: Lizbeth Gaston MD PCP: Dr. Rehana Hernandez MD Status:ADM IN Location: [place] [address] Reason for Visit Reason for Visit: Diagnoses Diverticulitis of large intestine without perforation or abscess without bleeding (08/07/23) Subjective Subjective Patient is a 57-year-old lady with previous history of diverticulitis who presented with abdominal pain. CT of the abdomen and pelvis obtained on admission demonstrated sigmoid diverticulosis with acute sigmoid diverticulitis. Admitted to regular nursing floor for further management Objective Data Objective Data Vital Signs: Vital Signs Temp Pulse Resp BP Pulse Ox O2 Del Method 99.0 F 71 18 118/81 H 96 Room Air 08/08/23 04:07 08/08/23 04:07 08/08/23 04:07 08/08/23 04:07 08/08/23 04:07 08/08/23 04:07 Oxygen Delivery Method Room Air Weight: 72.3 kg Body Mass Index (BMI) 28.2 Intake & Output: Intake and Output for Last 24 Hours 08/06/23 08/07/23 08/08/23 23:59 23:59 23:59 Intake Total 100 / 100 1200 / 1200 Balance 100 / 100 1200 / 1200 Lab / Micro Data 08/08/23 06:25 08/08/23 06:25 Labs: Laboratory Results - last 24 hr 08/07/23 12:20: WBC 7.2, RBC 5.32, Hgb 15.6 H, Hct 47.3 H, MCV 88.9, MCH 29.3, MCHC 33.0, RDW Std Deviation 44.3 H, RDW Coeff of Darlene 13.6, Plt Count 315, MPV 8.6, Immature Gran % (Auto) 0.300, Neut % (Auto) 61.7, Lymph % (Auto) 27.8, Thurston% (Auto) 8.4, Eos % (Auto) 1.1, Baso % (Auto) 0.7, Absolute Neuts (auto) 4.4, Absolute Lymphs (auto) 1.99, Nucleated RBC % 0, Sodium 140, Potassium 4.2, Chloride 109 H, Carbon Dioxide 26.0, Anion Gap 5, BUN 17, Creatinine 1.56 H, Estim Creat Clear Calc 32.12, Est GFR (MDRD) Af Amer 44 L, Est GFR (MDRD) Non-Af 36 L,BUN/Creatinine Ratio 10.9, Glucose 86, Calcium 9.9 08/08/23 06:25: WBC 7.1, RBC 4.36, Hgb 13.0, Hct 40.9, MCV 93.8 D, MCH 29.8, MCHC 31.8 L, RDW Std Deviation 48.2 H, RDW Coeff of Darlene 13.9, Plt Count 278, MPV8.9, Immature Gran % (Auto) 0.300, Neut % (Auto) 68.5, Lymph % (Auto) 19.4, Thurston% (Auto) 10.5 H, Eos % (Auto) 0.6, Baso % (Auto) 0.7, Absolute Neuts (auto) 4.9,Absolute Lymphs (auto) 1.38, Nucleated RBC % 0 Radiography Diagnostic Testing: Radiology Impression Abdomen/Pelvis CT 08/07/23 12:07 IMPRESSION: Sigmoid diverticulosis with acute sigmoid diverticulitis. A small amount of fluid is seen in the sigmoid mesentery as well as increased markings in the surrounding peritoneal fat. No focal abscess is seen at this time. Stable cyst in the right lobe of the liver as well as stable left renal cyst. Electronically Signed: Brandon Burks MD at 13:07 EDT , Physical Exam Narrative GENERAL: cooperative HEENT: Atraumatic; normocephalic EYES; Anicteric, Normal Conjunctiva NECK; supple, normal thyroid, RESPIRATORY: Diminished to auscultation CARDIOVASCULAR: Regular S1 S2, GI: soft, normoactive bowel sounds, LLQ tenderness : No Renal angle tenderness; EXTREMITIES: No edema, no clubbing, MUSCULOSKELETAL: no muscle wasting NEURO: Awake; no lateralizing signs. SKIN: No Rash PSYCH; Flat affect Assessment & Plan Assessment/Plan (1) Sigmoid diverticulitis: PLAN: Plan Patient is a 57-year-old lady with previous history of diverticulitis who presented with abdominal pain. CT of the abdomen and pelvis obtained on admission demonstrated sigmoid diverticulosis with acute sigmoid diverticulitis. Admitted to regular nursing floor for further management 1. Acute sigmoid diverticulitis ? Admitted to regular nursing floor management Cipro and Flagyl in addition to pain management and IV fluid consult was placed to general surgery 2. Chronic kidney disease stage III ? Kidney function at baseline 3. Mild intermittent asthma ? Did continue patient bronchodilator treatment regimen 4. Glaucoma ? Did continue with eyedrops as previously prescribed 5. DVT prophylaxis ? SC Lovenox Time spent in the patient's overall evaluation,decision-making process, review of diagnostic data, adjustment of management, discussion with other providers, nursing nursing and ancillary staff involved in patient's care documentation, 40 Minutes Charges/Coding Visit Charges Inpatient E&M: 45209 Subs Hosp L2 08/08/23 0916 <Electronically signed by Lizbeth Gaston MD> Cosigner Signature (if applicable): CC: ~ Signed [facility] Work Phone: 1(603) 714-156211-02-2023 History and physical note Author Lizbeth Hughes [facility] August 07, 2023 5:32pm Note Date/Time August 07, 2023 4 :28pm [facility] Medical Records Department [address] [facility] [place] [address] H&P Exam - Hospitalist 08/07/23 1626 MR#: [id number] Acct: [id number] Name: AZEB HUTCHISON V Rep #:[id number] : 1965 57 From: Lizbeth York DO PCP: Dr. Rehana Hernandez MD Status:REG ER Location: ED HPI - General General Date of Admission: 08/07/23 Date of Service: 08/07/23 Chief Complaint: Abdominal Pain, Nausea and Vomiting. HPI Narrative AZEB HUTCHISON, is a 57 F with a past medical history of recurrent sigmoid diverticulitis, mild intermittent asthma, glaucoma, chronic renal insufficiency;stage III, overweight; with BMI of 28.7 this admission and history of fibroidectomy with eventual total abdominal hysterectomy with bilateral salpingo-oophorectomy who presents to [facility] ER complaining of abdominal pain nausea vomiting. She reports her symptoms began approximately 3 to 4 days prior to admission on Friday, July with the gradual-onset of LLQ abdominal pain that was initially moderate but then became increasingly worse with pain exacerbated by palpation and movement and was made better by nothing. She describes the pain as severe, stabbing and continuous with pain also made worse by nausea and vomiting with bilious emesis with a fever of 101 ?F and patient unable to tolerate her oral antibiotic medications. He admits her symptoms are ominously similar to her previous bouts of acute sigmoid diverticulitis with at least 4 episodes within the last few years. She denies diarrhea melena or hematochezia. She also denies urinary frequency dysuria hematuria or urgency. In the ER her CT scan of the abdomen pelvis was positive for Acute Sigmoid Diverticulitis without evidence of abscess or rupture and she was then admitted to the general medical floor for ongoing care for status expected to extend beyond 48 hours. ON LICENSE OF [facility] Medical History Abdominal pain Anxiety Chronic kidney disease, stage 3 Home Medications bmqyhtep-fzq-qphrh ac 400 mcg-calcium carb 500 mg-vit K1 20 mcg tablet 1 ea PO DAILY supplement 07/28/19 [History Last Taken Unknown] calcifediol 30 mcg capsule,24 hr,extended release (Rayaldee) 30 mcg PO DAILY DEFICIENCY 08/07/23 [History Last Taken Unknown] dapagliflozin propanediol 10 mg tablet (Farxiga) 10 mg PO QHS KIDNEY 08/07/23 [History Last Taken Unknown] levalbuterol HCl 1.25 mg/3 mL solution for nebulization 1.25 mg inhalation PRN ASTHMA 08/07/23 [History Last Taken Unknown] tafluprost (PF) 0.0015 % eye drops in a dropperette 1 drp ophthalmic (eye) QHS 08/07/23 [History Last Taken Unknown] Allergy/AdvReac Type Severity Reaction Status Date / Time albuterol Allergy Shortness Verified 08/07/23 11:53 of breath morphine Allergy Rash Verified 08/07/23 11:53 Penicillins Allergy Hives Verified 08/07/23 11:53 Surgical History S/P colonoscopy s/p fibroid removal S/P hysterectomy S/P tonsillectomy and adenoidectomy Status post breast reduction Status post surgical removal of ganglion cyst Social History Smoking Status: Former smoker alcohol intake: never ROS ROS Narrative General: Did have fever HENT: Denies headache, denies stuffy nose, denies sore throat EYES: Denies changes in vision Resp: Denies cough, denies shortness of breath Cardiac: Denies chest pain GI: She admits to severe, stabbing abdominal pain, with nausea and vomitng : Denies changes in urination Extremity: Denies swelling Musculoskeletal: Feels somewhat generally weak and unwell Neuro: Denies any numbness/tingling Heme: Denies any bleeding or bruising Skin: Denies rashes Psychiatric: No complaints voiced Endocrine: No polyuria The rest of the 14 point ROS was negative except for positives in HPI. Vital Signs Vital Signs Vital Signs: 08/07/23 11:53 08/07/23 15:14 Temperature 97.8 F Temperature Source Temporal Pulse Rate 89 75 Respiratory Rate 18 14 Blood Pressure 153/81 H 135/74 H Blood Pressure Mean 105 94 Pulse Ox 100 98 Oxygen Delivery Method Room Air Room Air Weight Weight: 162 lb Body Mass Index (BMI) 28.7 Physical Exam Const alert and oriented x3 General Appearance: cooperative HEENT normocephalic, head/scalp atraumatic and hearing grossly normal bilaterally Eyes PERRL, EOMs intact bilaterally and conjunctivae normal Neck no lymphadenopathy, supple, no JVD and no carotid bruits Resp normal respiratory effort, no retractions, no use of accessory muscles and clearto auscultation bilaterally Cardio regular rate, regular rhythm, S1 normal heart sound and S2 normal heart sound GI GI Narrative: Patient is diffusely tender in the left lower quadrant with mildly increased bowel sounds. Palpation: tender Extremity normal to inspection, full ROM and no clubbing, cyanosis or edema Neuro oriented x3, CN's II-XII intact bilaterally, moves all extremities and no focal motor deficits Sensorium / Orientation: awake, alert, oriented to person, oriented to place andoriented to time Speech: speech normal Motor Exam: strength 5/5 throughout Psych Psych Narrative: Patient is anxious because this is her fourth severe episode. Mood & Affect: anxious Results Medical Records Data Attestation: I reviewed the patient's medical records Lab / Micro Data 08/07/23 12:20 08/07/23 12:20 Labs: Laboratory Results - last 24 hr 08/07/23 12:20: WBC 7.2, RBC 5.32, Hgb 15.6 H, Hct 47.3 H, MCV 88.9, MCH 29.3, MCHC 33.0, RDW Std Deviation 44.3 H, RDW Coeff of Darlene 13.6, Plt Count 315, MPV 8.6, Immature Gran % (Auto) 0.300, Neut % (Auto) 61.7, Lymph % (Auto) 27.8, Thurston% (Auto) 8.4, Eos % (Auto) 1.1, Baso % (Auto) 0.7, Absolute Neuts (auto) 4.4, Absolute Lymphs (auto) 1.99, Nucleated RBC % 0, Sodium 140, Potassium 4.2, Chloride 109 H, Carbon Dioxide 26.0, Anion Gap 5, BUN 17, Creatinine 1.56 H, Estim Creat Clear Calc 32.12, Est GFR (MDRD) Af Amer 44 L, Est GFR (MDRD) Non-Af36 L, BUN/Creatinine Ratio 10.9, Glucose 86, Calcium 9.9 Radiology Impression Abdomen/Pelvis CT 08/07/23 12:07 IMPRESSION: Sigmoid diverticulosis with acute sigmoid diverticulitis. A small amount of fluid is seen in the sigmoid mesentery as well as increased markings in the surrounding peritoneal fat. No focal abscess is seen at this time. Stable cyst in the right lobe of the liver as well as stable left renal cyst. Electronically Signed: Brandon Burks MD at 13:07 EDT , Assessment & Plan Assessment/Plan (1) Sigmoid diverticulitis: PLAN: Plan 1. Acute sigmoid diverticulitis; recurrent -admit to general medical floor. Continue IV Cipro and IV Flagyl begun in the ER given patient's penicillin allergy history. We will volume resuscitate with normal saline at 125 cc/h. Shewill be treated with as needed Dilaudid 0.5 mg IV every 4 hours as needed for severe 6-10 pain. Will be treated with Zofran IV as needed nausea. She will betreated with Tylenol for fever greater than 101 ?F or mild to moderate pain 1-5. Finally, we will consult Dr. Moralez of general surgery to evaluate this patient this admission for consideration regarding potential future semielective sigmoidectomy with consultation appreciated in advance. 2. Chronic renal insufficiency; stage III with baseline creatinine of approximately 1.5-1.6 -give IV fluids and recheck BMP in the a.m. to ensure continued stability. Avoid potentially nephrotoxic medications. 3. Overweight with a BMI of 28.7 this admission -weight loss will be recommended. 4. Glaucoma - Continue eyedrops as previous. 5. Mild intermittent asthma - Stable with no evidence of flare at this time. Continue as needed nebulizers. 6. History of fibroidectomy with subsequent total abdominal hysterectomy with bilateral salpingo-oophorectomy - noted. 7. DVT prophylaxis-Lovenox 40 mg subcu daily. Total Time: Approximately 55 minutes. Charges/Coding Multi Select Codes Visit Charges Visit Charges: 22617 Init Hosp L2 08/07/23 1732 <Electronically signed by Lizbeth Gomes DO> Cosigner Signature (if applicable): CC: Dr. Rehana Hernandez MD; Dr. Lizbeth Gomes DO~ Signed [facility] Work Phone: 1(281) 666-205211-02-2023 Discharge summary Author Alexis Shultz [facility] August 07, 2023 4:50pm Note Date/Time August 07, 2023 1 2:14pm [facility] Medical Records Department [address] [place] [address] Emergency Department Summary 08/07/23 MR#: [id number] Acct: [id number] Name: AZEB HUTCHISON V Rep #:[id number] : 1965 57 From: Alexis Shultz MD PCP: Dr. Rehana Hernandez MD Status:REG ER Location: ED HPI HPI - GI History of Present Illness Chief Complaint: Abd Pain Detail of Chief Complaint: Left lower quadrant abdominal pain for 4 days. Informant: patient Abdominal Pain/Flank Pain Onset: Days Context: Gradual Onset Timing: Continuous Quality: Stabbing Location: LLQ Current Severity: Moderate Maximum Severity: Severe Worsened by: Car ride Relieved by: Nothing Nausea/Vomiting/Emesis GI Symptom: Positive for Nausea Onset: Days Severity: Mild Diarrhea/Melena/Hematochezia GI Symptom: Negative for Diarrhea, Melena or Hematochezia Associated Symptoms Associated Symptoms: Negative for Dysuria, Frequency, Hematuria or Urgency Narrative Narrative: 57-year-old female history of prior diverticulitis, renal insufficiency and prior hysterectomy with bilateral ovaries resected. States since Friday she hashad increasing left lower quadrant abdominal pain like when she had prior diverticulitis. Saw her primary care physician referred to the emergency department today. She has had nausea but no vomiting or diarrhea. No dysuria. Fever at home as high as 101. Other than her hysterectomy she has had no other prior abdominal or pelvic surgeries. Prior similar symptoms: Yes Recent Illness/Hospitalization: No PFSH PFSH Medical History Abdominal pain Anxiety Chronic kidney disease, stage 3 Home Medications [id number]-fwb-uybxd ac 400 mcg-calcium carb 500 mg-vit K1 20 mcg tablet 1 ea PO DAILY supplement 07/28/19 [History Last Taken Unknown] vit C,E,zinc,copper-upjwn1m 250 mg-lutein 5 mg-zeaxanthin 1 mg capsule 1 ea PO DAILY supplement 07/28/19 [History Last Taken Unknown] diazepam 2 mg tablet (Valium) 2 mg PO BID PRN anxiety #3 tabs 02/03/20 [Rx Last Taken Unknown] atorvastatin 20 mg tablet 20 mg PO QHS 04/11/20 [History Last Taken Unknown] duloxetine 60 mg capsule,delayed release 60 mg PO DAILY 04/11/20 [History Last Taken Unknown] ciprofloxacin HCl 500 mg tablet 500 mg PO BID #14 tabs 07/21/20 [Rx Last Taken Unknown] metronidazole 500 mg tablet 500 mg PO Q8H #21 tabs 07/21/20 [Rx Last Taken Unknown] promethazine 25 mg tablet 25 mg PO Q6H PRN PRN Nausea #10 tabs 07/21/20 [Rx Last Taken Unknown] Allergy/AdvReac Type Severity Reaction Status Date / Time albuterol Allergy Shortness Verified 08/07/23 11:53 of breath morphine Allergy Rash Verified 08/07/23 11:53 Penicillins Allergy Hives Verified 08/07/23 11:53 Surgical History S/P colonoscopy s/p fibroid removal S/P hysterectomy S/P tonsillectomy and adenoidectomy Status post breast reduction Status post surgical removal of ganglion cyst Social History Smoking Status: Former smoker alcohol intake: never ROS ROS ED ROS Narrative Left lower quadrant abdominal pain. Nausea. Fever. Review of Systems ROS Unobtainable: Denies due to encephalopathy Constitutional Constitutional ED: Reports fever(s) ENT ENT ED: Denies ear pain Cardiovascular Cardiovascular: Denies chest pain Respiratory/Chest Respiratory/Chest: Denies cough or dyspnea Gastrointestinal Gastrointestinal: Reports abdominal pain Genitourinary Genitourinary ED: Denies dysuria or hematuria Musculoskeletal Musculoskeletal: Denies arthralgias or back pain Integumentary Denies abscess Neurologic Neurologic: Denies headache(s) Psychiatric Psychiatric: Denies anxiety Endocrine Endocrinology: Denies polydipsia Hematologic/Lymphatic Hematologic/Lymphatic: Denies easy bleeding Allergic/Immunologic Allergic/Immunologic ED: Denies mouth swelling, tongue swelling or urticaria EXAM Physical Exam Narrative Exam Narrative: 37-year-old female vital signs stable afebrile. Complaint left lower quadrant abdominal pain. H EENT exam unremarkable. Neck nontender. Lungs clear. Heartregular rhythm rate about 90. Abdomen soft, nondistended, normal bowel sounds. She is squeezing tenderness left lower quadrant. There is no rebound. She doeshave mild guarding. Upper quadrants and right lower quadrant are nontender. Nohernia or mass. No distention. Moving all 4 extremities. Nontender no edema. Back nontender. Neurologically she is awake and alert. Const Vital Signs: 08/07/23 11:53 Temperature 97.8 F Temperature Source Temporal Pulse Rate 89 Respiratory Rate 18 Blood Pressure 153/81 H Blood Pressure Mean 105 Pulse Ox 100 Oxygen Delivery Method Room Air Positive well nourished and well developed; Negative for cachectic, contracturesor unkempt General Appearance ED: well developed and NAD; Negative for unkempt, cachectic, contractures or pallor Nutritional Appearance: Negative for cachectic HEENT Reports moist mucous membranes normocephalic and atraumatic; Negative for trauma or tenderness Eyes PERRL and EOMs intact bilaterally General Eye ED: Negative for pale conjunctiva or scleral icterus Neck no lymphadenopathy, supple and no JVD General: Negative for tenderness Carotids: Negative for other Lymph Lymphatic: Negative for other Resp normal respiratory effort and clear to auscultation bilaterally Effort and Inspection: Negative for respiratory distress Auscultation: Negative for rales, rhonchi or wheezes Cardio regular rate, regular rhythm, S1 normal heart sound, S2 normal heart sound and no murmurs Rate: Negative for bradycardia or tachycardic Rhythm: Negative for abnormal rhythm GI non-distended and no masses; Negative for non-tender GI Narrative: Left lower quadrant tenderness only. Inspection: Negative for abdominal distention Auscultation: normoactive bowel sounds Palpation: soft, tender and guarding; Negative for rigid, hepatomegaly, splenomegaly, hernia, mass, pulsatile mass or rebound tenderness present Back/Spine no CVA tenderness General Back: Negative for CVA tenderness Cervical Spine: Negative for cervical spine tenderness Thoracic Spine / Upper Back: Negative for thoracic spinal tenderness Lumbar Spine / Lower Back: Negative for lumbar spinal tenderness Extremity General Extremety ED: Negative for edema or tenderness General Extremity: Negative for edema Neuro CN's II-XII intact bilaterally and moves all extremities Sensorium / Orientation: alert, oriented to person, oriented to place and oriented to time; Negative for orientation impaired, confused or lethargic Motor Exam: strength 5/5 throughout Psych mental status grossly normal and thought process normal Appearance: Negative for unkempt Attitude: No agitated Mood & Affect: Negative for depressed, anxious or tearful Skin General Skin Exam: Negative for jaundice or pallor Lesions: No no lesions Rashes: no rashes Trauma: Negative for abrasion Nails: Negative for discolored MDM MDM MDM Narrative Medical decision making narrative: For 7-year-old with left lower quadrant abdominal pain which is most likely secondary diverticulitis rule out microperforate abscess versus other etiologies. CAT scan and labs. She will be treated with IV Dilaudid for pain and Zofran for nausea. History & Record Review Discussion w/independent historian: Patient Additional record(s) reviewed:: Prior inpatient record, Prior outpatient record,Prior ED visit and Prior labs Lab Data Attestation: I reviewed the patient's lab results. Lab results narrative: BC is unremarkable. White count of 7. H&H 15 and 47. Platelets 315. Electrolytes unremarkable gap of 5 BUN and creatinine is 17 and 1.56. Glucose 86. Abdominal CAT scan shows acute sigmoid diverticulitis. No abscess. No perforation. Read by the radiologist. Labs: Laboratory Results - last 24 hr 08/07/23 12:20 WBC 7.2 RBC 5.32 Hgb 15.6 H Hct 47.3 H MCV 88.9 MCH 29.3 MCHC 33.0 RDW Std Deviation 44.3 H RDW Coeff of Darlene 13.6 Plt Count 315 MPV 8.6 Immature Gran % (Auto) 0.300 Neut % (Auto) 61.7 Lymph % (Auto) 27.8 Thurston % (Auto) 8.4 Eos % (Auto) 1.1 Baso % (Auto) 0.7 Absolute Neuts (auto) 4.4 Absolute Lymphs (auto) 1.99 Nucleated RBC % 0 Sodium 140 Potassium 4.2 Chloride 109 H Carbon Dioxide 26.0 Anion Gap 5 BUN 17 Creatinine 1.56 H Estim Creat Clear Calc 32.12 Est GFR (MDRD) Af Amer 44 L Est GFR (MDRD) Non-Af 36 L BUN/Creatinine Ratio 10.9 Glucose 86 Calcium 9.9 Radiography Diagnostic Testing: Clinical Impression(s) from Imaging Studies Abdomen/Pelvis CT 08/07/23 12:07 IMPRESSION: Sigmoid diverticulosis with acute sigmoid diverticulitis. A small amount of fluid is seen in the sigmoid mesentery as well as increased markings in the surrounding peritoneal fat. No focal abscess is seen at this time. Stable cyst in the right lobe of the liver as well as stable left renal cyst. Electronically Signed: Brandon Burks MD at 13:07 EDT , Discharge Plan Triage Chief Complaint: Abd Pain ED Provider: Alexis Shultz Dx/Rx/DC Orders Clinical Impression: Sigmoid diverticulitis, Chronic kidney insufficiency, Abdominal pain Prescriptions: No Action diazepam [Valium] 2 mg tablet 2 mg PO BID PRN (Reason: anxiety) Qty: 3 0RF Rx Instructions: take one tab one hour before, 30 mins before mri C,E,zinc,copper [id number] 1 EACH capsule 1 ea PO DAILY uk-uds-etftr-calcium carb-K1 1 EACH tablet 1 ea PO DAILY atorvastatin 20 MG tablet 20 mg PO QHS duloxetine 60 MG capsule,delayed release(DR/EC) 60 mg PO DAILY ciprofloxacin HCl 500 MG tablet 500 mg PO BID Qty: 14 0RF metronidazole 500 MG tablet 500 mg PO Q8H Qty: 21 0RF promethazine 25 MG tablet 25 mg PO Q6H PRN PRN (Reason: Nausea) Qty: 10 0RF Primary Care Provider: Rehana Hernandez Referrals: Rehana Hernandez MD [Primary Care Provider] - Disposition Disposition: Acute Care Hospital [facility] What to do if you have Problems For any increased pain, shortness of breath, bleeding, nausea or vomiting, chestpain, or any unexpected problems, contact your Primary Care Provider. Call [facility] ([phone]) or report to the closest Emergency Room. Call 911 if necessary. 08/07/23 1650 <Electronically signed by Alexis Shultz MD> Cosigner Signature (if applicable): CC: Dr. Rehana Hernandez MD ~ Signed [facility] Work Phone: 1(238) 244-700911-02-2023 Discharge summary Author Alexis Shultz [facility] August 07, 2023 4:50pm Note Date/Time August 07, 2023 1 2:14pm [facility] Medical Records Department [address] [place] [address] Emergency Department Summary 08/07/23 MR#: [id number] Acct: [id number] Name: AZEB HUTCHISON V Rep #:[id number] : 1965 57 From: Alexis Shultz MD PCP: Dr. Rehana Hernandez MD Status:REG ER Location: ED HPI HPI - GI History of Present Illness Chief Complaint: Abd Pain Detail of Chief Complaint: Left lower quadrant abdominal pain for 4 days. Informant: patient Abdominal Pain/Flank Pain Onset: Days Context: Gradual Onset Timing: Continuous Quality: Stabbing Location: LLQ Current Severity: Moderate Maximum Severity: Severe Worsened by: Car ride Relieved by: Nothing Nausea/Vomiting/Emesis GI Symptom: Positive for Nausea Onset: Days Severity: Mild Diarrhea/Melena/Hematochezia GI Symptom: Negative for Diarrhea, Melena or Hematochezia Associated Symptoms Associated Symptoms: Negative for Dysuria, Frequency, Hematuria or Urgency Narrative Narrative: 57-year-old female history of prior diverticulitis, renal insufficiency and prior hysterectomy with bilateral ovaries resected. States since Friday she hashad increasing left lower quadrant abdominal pain like when she had prior diverticulitis. Saw her primary care physician referred to the emergency department today. She has had nausea but no vomiting or diarrhea. No dysuria. Fever at home as high as 101. Other than her hysterectomy she has had no other prior abdominal or pelvic surgeries. Prior similar symptoms: Yes Recent Illness/Hospitalization: No PFSH PFSH Medical History Abdominal pain Anxiety Chronic kidney disease, stage 3 Home Medications ferflhnc-bqu-vdgme ac 400 mcg-calcium carb 500 mg-vit K1 20 mcg tablet 1 ea PO DAILY supplement 07/28/19 [History Last Taken Unknown] vit C,E,zinc,copper-hgaoo7x 250 mg-lutein 5 mg-zeaxanthin 1 mg capsule 1 ea PO DAILY supplement 07/28/19 [History Last Taken Unknown] diazepam 2 mg tablet (Valium) 2 mg PO BID PRN anxiety #3 tabs 02/03/20 [Rx Last Taken Unknown] atorvastatin 20 mg tablet 20 mg PO QHS 04/11/20 [History Last Taken Unknown] duloxetine 60 mg capsule,delayed release 60 mg PO DAILY 04/11/20 [History Last Taken Unknown] ciprofloxacin HCl 500 mg tablet 500 mg PO BID #14 tabs 07/21/20 [Rx Last Taken Unknown] metronidazole 500 mg tablet 500 mg PO Q8H #21 tabs 07/21/20 [Rx Last Taken Unknown] promethazine 25 mg tablet 25 mg PO Q6H PRN PRN Nausea #10 tabs 07/21/20 [Rx Last Taken Unknown] Allergy/AdvReac Type Severity Reaction Status Date / Time albuterol Allergy Shortness Verified 08/07/23 11:53 of breath morphine Allergy Rash Verified 08/07/23 11:53 Penicillins Allergy Hives Verified 08/07/23 11:53 Surgical History S/P colonoscopy s/p fibroid removal S/P hysterectomy S/P tonsillectomy and adenoidectomy Status post breast reduction Status post surgical removal of ganglion cyst Social History Smoking Status: Former smoker alcohol intake: never ROS ROS ED ROS Narrative Left lower quadrant abdominal pain. Nausea. Fever. Review of Systems ROS Unobtainable: Denies due to encephalopathy Constitutional Constitutional ED: Reports fever(s) ENT ENT ED: Denies ear pain Cardiovascular Cardiovascular: Denies chest pain Respiratory/Chest Respiratory/Chest: Denies cough or dyspnea Gastrointestinal Gastrointestinal: Reports abdominal pain Genitourinary Genitourinary ED: Denies dysuria or hematuria Musculoskeletal Musculoskeletal: Denies arthralgias or back pain Integumentary Denies abscess Neurologic Neurologic: Denies headache(s) Psychiatric Psychiatric: Denies anxiety Endocrine Endocrinology: Denies polydipsia Hematologic/Lymphatic Hematologic/Lymphatic: Denies easy bleeding Allergic/Immunologic Allergic/Immunologic ED: Denies mouth swelling, tongue swelling or urticaria EXAM Physical Exam Narrative Exam Narrative: 37-year-old female vital signs stable afebrile. Complaint left lower quadrant abdominal pain. H EENT exam unremarkable. Neck nontender. Lungs clear. Heartregular rhythm rate about 90. Abdomen soft, nondistended, normal bowel sounds. She is squeezing tenderness left lower quadrant. There is no rebound. She doeshave mild guarding. Upper quadrants and right lower quadrant are nontender. Nohernia or mass. No distention. Moving all 4 extremities. Nontender no edema. Back nontender. Neurologically she is awake and alert. Const Vital Signs: 08/07/23 11:53 Temperature 97.8 F Temperature Source Temporal Pulse Rate 89 Respiratory Rate 18 Blood Pressure 153/81 H Blood Pressure Mean 105 Pulse Ox 100 Oxygen Delivery Method Room Air Positive well nourished and well developed; Negative for cachectic, contracturesor unkempt General Appearance ED: well developed and NAD; Negative for unkempt, cachectic, contractures or pallor Nutritional Appearance: Negative for cachectic HEENT Reports moist mucous membranes normocephalic and atraumatic; Negative for trauma or tenderness Eyes PERRL and EOMs intact bilaterally General Eye ED: Negative for pale conjunctiva or scleral icterus Neck no lymphadenopathy, supple and no JVD General: Negative for tenderness Carotids: Negative for other Lymph Lymphatic: Negative for other Resp normal respiratory effort and clear to auscultation bilaterally Effort and Inspection: Negative for respiratory distress Auscultation: Negative for rales, rhonchi or wheezes Cardio regular rate, regular rhythm, S1 normal heart sound, S2 normal heart sound and no murmurs Rate: Negative for bradycardia or tachycardic Rhythm: Negative for abnormal rhythm GI non-distended and no masses; Negative for non-tender GI Narrative: Left lower quadrant tenderness only. Inspection: Negative for abdominal distention Auscultation: normoactive bowel sounds Palpation: soft, tender and guarding; Negative for rigid, hepatomegaly, splenomegaly, hernia, mass, pulsatile mass or rebound tenderness present Back/Spine no CVA tenderness General Back: Negative for CVA tenderness Cervical Spine: Negative for cervical spine tenderness Thoracic Spine / Upper Back: Negative for thoracic spinal tenderness Lumbar Spine / Lower Back: Negative for lumbar spinal tenderness Extremity General Extremety ED: Negative for edema or tenderness General Extremity: Negative for edema Neuro CN's II-XII intact bilaterally and moves all extremities Sensorium / Orientation: alert, oriented to person, oriented to place and oriented to time; Negative for orientation impaired, confused or lethargic Motor Exam: strength 5/5 throughout Psych mental status grossly normal and thought process normal Appearance: Negative for unkempt Attitude: No agitated Mood & Affect: Negative for depressed, anxious or tearful Skin General Skin Exam: Negative for jaundice or pallor Lesions: No no lesions Rashes: no rashes Trauma: Negative for abrasion Nails: Negative for discolored MDM MDM MDM Narrative Medical decision making narrative: For 7-year-old with left lower quadrant abdominal pain which is most likely secondary diverticulitis rule out microperforate abscess versus other etiologies. CAT scan and labs. She will be treated with IV Dilaudid for pain and Zofran for nausea. History & Record Review Discussion w/independent historian: Patient Additional record(s) reviewed:: Prior inpatient record, Prior outpatient record,Prior ED visit and Prior labs Lab Data Attestation: I reviewed the patient's lab results. Lab results narrative: BC is unremarkable. White count of 7. H&H 15 and 47. Platelets 315. Electrolytes unremarkable gap of 5 BUN and creatinine is 17 and 1.56. Glucose 86. Abdominal CAT scan shows acute sigmoid diverticulitis. No abscess. No perforation. Read by the radiologist. Labs: Laboratory Results - last 24 hr 08/07/23 12:20 WBC 7.2 RBC 5.32 Hgb 15.6 H Hct 47.3 H MCV 88.9 MCH 29.3 MCHC 33.0 RDW Std Deviation 44.3 H RDW Coeff of Darlene 13.6 Plt Count 315 MPV 8.6 Immature Gran % (Auto) 0.300 Neut % (Auto) 61.7 Lymph % (Auto) 27.8 Thurston % (Auto) 8.4 Eos % (Auto) 1.1 Baso % (Auto) 0.7 Absolute Neuts (auto) 4.4 Absolute Lymphs (auto) 1.99 Nucleated RBC % 0 Sodium 140 Potassium 4.2 Chloride 109 H Carbon Dioxide 26.0 Anion Gap 5 BUN 17 Creatinine 1.56 H Estim Creat Clear Calc 32.12 Est GFR (MDRD) Af Amer 44 L Est GFR (MDRD) Non-Af 36 L BUN/Creatinine Ratio 10.9 Glucose 86 Calcium 9.9 Radiography Diagnostic Testing: Clinical Impression(s) from Imaging Studies Abdomen/Pelvis CT 08/07/23 12:07 IMPRESSION: Sigmoid diverticulosis with acute sigmoid diverticulitis. A small amount of fluid is seen in the sigmoid mesentery as well as increased markings in the surrounding peritoneal fat. No focal abscess is seen at this time. Stable cyst in the right lobe of the liver as well as stable left renal cyst. Electronically Signed: Brandon Burks MD at 13:07 EDT , Discharge Plan Triage Chief Complaint: Abd Pain ED Provider: Alexis Shultz Dx/Rx/DC Orders Clinical Impression: Sigmoid diverticulitis, Chronic kidney insufficiency, Abdominal pain Prescriptions: No Action diazepam [Valium] 2 mg tablet 2 mg PO BID PRN (Reason: anxiety) Qty: 3 0RF Rx Instructions: take one tab one hour before, 30 mins before mri C,E,zinc,copper 23-ecoxl3a-hoe 1 EACH capsule 1 ea PO DAILY dw-whd-ayfcg-calcium carb-K1 1 EACH tablet 1 ea PO DAILY atorvastatin 20 MG tablet 20 mg PO QHS duloxetine 60 MG capsule,delayed release(DR/EC) 60 mg PO DAILY ciprofloxacin HCl 500 MG tablet 500 mg PO BID Qty: 14 0RF metronidazole 500 MG tablet 500 mg PO Q8H Qty: 21 0RF promethazine 25 MG tablet 25 mg PO Q6H PRN PRN (Reason: Nausea) Qty: 10 0RF Primary Care Provider: Rehana Hernandez Referrals: Rehana Hernandez MD [Primary Care Provider] - Disposition Disposition: Acute Care Hospital [facility] What to do if you have Problems For any increased pain, shortness of breath, bleeding, nausea or vomiting, chestpain, or any unexpected problems, contact your Primary Care Provider. Call [facility] ([phone]) or report to the closest Emergency Room. Call 911 if necessary. 08/07/23 1650 <Electronically signed by Alexis Shultz MD> Cosigner Signature (if applicable): CC: Dr. Rehana Hernandez MD ~ Signed [facility] Work Phone: [phone] 633-373410-06-2023 Emergency department Note* Juli Flores RN - 07/11/2023 1:50 PM EDT Discharge instructions reviewed with patient who verbalizes clear understanding. They deny any further concern or question. Patient wound wrapped per provider order. Patient left unit alone and demonstrating a steady gait. [facility] Emergency department Note* Juli Flores RN - 07/11/2023 1:50 PM EDT Discharge instructions reviewed with patient who verbalizes clear understanding. They deny any further concern or question. Patient wound wrapped per provider order. Patient left unit alone and demonstrating a steady gait. * Zen Alexander MD - 07/11/2023 1:30 PM EDT Emergency Room Note [facility] EMERGENCY DEPARTMENT Service Date:.07/11/23 PCP: Rehana Hernandez [...] not opening. She states that when she wouldbend her thumb because would open up. Her [...] Speaking in full sentences has no respiratory distress.She has good range of motion left shoulder, [...] of the IP joint when I isolate theMP joint. She has good flexion and extension of the MP joint when I isolate the IP joint. There is no subungual hematoma. No other signs of trauma. She has no tenderness over the bony structure of the thumb. There is no drainage from the wound. No fluctuance. No swelling. No evidence of cellulitis,lymphangitis, or abscess. She has no signs of [...] YELLOW YELLOW APPEARANCE, URINE CLEAR CLEAR Specific [place], Urine 1.020 1.010 - 1.025 PH URINE [...] then place bacitracin ointment and a clean Band-Aid.Wound reapply her splint. Do this for the [...] information. . Zen Alexander MD 07/11/23 1333 * Juil Flores RN - 07/11/2023 12:38 PM EDT Registration at bedside * Ken Barrios RN - 07/11/2023 11:44 AM EDT Patient states " I cut my thumb last nite on a kary jar. It was still kind of bleeding this morning and its pretty painful." documented in [facility] Physician Emergency department Note* Zen Alexander MD - 07/11/2023 1:30 PM EDT Emergency Room Note [facility] EMERGENCY DEPARTMENT Service Date:.07/11/23 PCP: Rehana Hernandez [...] not opening. She states that when she wouldbend her thumb because would open up. Her [...] Speaking in full sentences has no respiratory distress.She has good range of motion left shoulder, [...] of the IP joint when I isolate theMP joint. She has good flexion and extension of the MP joint when I isolate the IP joint. There is no subungual hematoma. No other signs of trauma. She has no tenderness over the bony structure of the thumb. There is no drainage from the wound. No fluctuance. No swelling. No evidence of cellulitis,lymphangitis, or abscess. She has no signs of [...] YELLOW YELLOW APPEARANCE, URINE CLEAR CLEAR Specific [place], Urine 1.020 1.010 - 1.025 PH URINE [...] then place bacitracin ointment and a clean Band-Aid.Wound reapply her splint. Do this for the [...] information. . Zen Alexander MD 07/11/23 1333 [facility] Hospital Discharge instructions* Discharge Instructions* Zen Alexander MD - 07/11/2023 1:29 PM [...] concerns, or feel worse in any way. * Attachments The following attachments cannot be sent through Care Everywhere. * Lacerations: Open (Moroccan) documented in this encounterMemorial Health System10-06-2023 Emergency department Note* Juli Flores RN - 07/11/2023 12:38 PM EDT Registration at bedside [facility] Emergency department Note* Ken Barrios RN - 07/11/2023 11:44 AM EDT Patient states " I cut my thumb last nite on a kary jar. It was still kind of bleeding this morning and its pretty painful." [facility] History of Present illness Narrative* Rudy Aburto MD - 07/09/2023 3:30 PM EDT DAILY PROGRESS NOTE Admit Date: (Not on file) Date of Evaluation: :33 PM [facility] @RRBARBIEOS@ IMPRESSION AND PLAN: 56 y/o female with [...] APPEARANCE, URINE 07/08/2023 CLEAR CLEAR Final Specific [place], Urine 07/08/2023 1.020 1.010 - 1.025 Final [...] Final LABS Labs-ABGs @ABGROUNDS@ Labs-CBC @CBCBRIEFROUNDS@ Labs-Chem 7([facility]) Bun/Creat/Cl/CO2/Glucose: 22/1.61/110/22/91 (07/08 1641) @ALBERTO@ [facility] (WHITE BLOOD COUNT) Date Value Ref [...] Skin: Warm and dry documented in this encounterMemorial Health System08-10-2023 Physician Emergency department Note* Teja Beth MD - 05/15/2023 9:22 PM EDT Emergency Department Report [facility] EMERGENCY DEPARTMENT Service Date:.05/15/23 PCP: Rehana Hernandez [...] -- -- -- -- 1.6 m (5' 3") 05/15/231926 (!) 175/95 98.3 F (36.8 C) [...] YELLOW YELLOW APPEARANCE, URINE CLEAR CLEAR Specific [place], Urine >1.030 (H) 1.010 - 1.025 PH [...] the patient with above information. . . Teja Beth MD 05/15/23 2257 [facility] Emergency department Note* Teja Beth MD - 05/15/2023 9:22 PM EDT Emergency Department Report [facility] EMERGENCY DEPARTMENT Service Date:.05/15/23 PCP: Rehana Hernandez [...] -- -- 75 18 99 % -- 05/15/23 193 -- -- -- -- -- 100 % -- 05/15/231928 -- -- -- -- -- -- 1.6 m (5' 3") 05/15/231926 (!) 175/95 98.3 F (36.8 C) [...] YELLOW YELLOW APPEARANCE, URINE CLEAR CLEAR Specific [place], Urine >1.030 (H) 1.010 - 1.025 PH [...] the patient with above information. . . Teja Beth MD 05/15/23 7825 documented in this encounterMemorial Health System07-13-2023 History of Present illness Narrative* Rudy Aburto MD - 04/17/2023 11:15 AM EDT DAILY PROGRESS NOTE Admit Date: (Not on file) Date of Evaluation: 1:43 AM [facility] @[facility]@ IMPRESSION AND PLAN: 56 y/o female with [...] APPEARANCE, URINE 04/14/2023 CLEAR CLEAR Final Specific [place], Urine 04/14/2023 >1.030 (H) 1.010 - 1.025 [...] NOT MET, NO CULTURE PERFORMED. Final LABS Labs-ABShree @ABGROUNDS@ Labs-CBC @CBCBRIEFROUNDS@ Labs-Chem 7([facility]) @[facility]@ Labs-Coags WBC (WHITE BLOOD COUNT) Date Value [...] Skin: Warm and dry documented in this [facility]07-13-2023 Evaluation note* Diagnosis Stage 3a chronic kidney disease- Primary documented in this encounter [facility] History of Present illness Narrative* Rudy Aburto MD - 02/12/2023 3:30 PM EDT DAILY PROGRESS NOTE Admit Date: (Not on file) Date of Evaluation: :46 PM [facility] @ZEN@ IMPRESSION AND PLAN: 56 y/o female with [...] APPEARANCE, URINE 02/10/2023 CLEAR CLEAR Final Specific [place], Urine 02/10/2023 1.025 1.010 - 1.025 Final [...] LABS Labs-ABGs @ABGROUNDS@ Labs-CBC @CBCBRIEFROUNDS@ Labs-Chem 7([facility]) @[facility]@ Labs-Coa WBC (WHITE BLOOD COUNT) Date Value [...] Skin: Warm and dry documented in this [facility]05-05-2023 History of Present illness Narrative* Colleen Mcnair - 02/07/2023 2:00 PM EDT Chief Complaint Patient presents with Left Knee - Pain Pain Radiation To: none Pain Duration: 01/13/2023 Pain Frequency: constant Pain Quality: aching, soreness Factors That Aggravate Pain: activity Factors That Relieve Pain: rest Works for the [employer]). Here for initial consultation for left knee [...] (36.7 C) (Temporal) Ht 1.6 m (5' 3") Wt 76.1 kg (167 lb 12.8 oz) BMI 29.72 kg/m *Portions of this note may have been created with Elias Borges Urzeda or other software which leads to grammatical and typographical errors which are not product sales representative of the intent with my spoken words. * Debra Max, DO - 02/07/2023 2:00 PM EDT Chief Complaint Patient presents with Left Knee - Pain Pain Radiation To: none Pain Duration: 01/13/2023 Pain Frequency: constant Pain Quality: aching, soreness Factors That Aggravate Pain: activity Factors That Relieve Pain: rest Works for the [employer] ([employer]). Here for initial consultation forleft knee pain. Pain is located posteriorly and radiates down the lower extremity. Recently seen int ED and ultrasound of the left lower [...] (36.7 C) (Temporal) Ht 1.6 m (5' 3") Wt 76.1 kg (167 lb 12.8 oz) BMI 29.72 kg/m *Portions of this note may have been created with Elias Borges Urzeda or other software which leads to grammatical and typographical errors which are not product sales representative of the intent with my spoken words. Clinical office clerk assistant/AT/MA was acting as a scribe today for this note. I have performed all essentialcomponents of the history, and physical exam. I have confirmed the diagnosis and developed a plan of care at this visit. I have reviewed the note following the visit and have made edits as appropriate to my evaluation and plan of care. Debra Max DO documented in this encounterMemorial Health System04-13-2023 Emergency department Note* ARVIN Muñoz - 01/16/2023 8:47 PM EDT Patient given ice pack per request [facility] Emergency department Note* ARVIN Muñoz - 01/16/2023 8:47 PM EDT Patient given ice pack per request documented in this encounterMemorial Health System02-24-2023 History of Present illness Narrative* Nicolle Ponce [...] neg 11/29/2022 [place] NEGATIVE 11/20/2022 * Markie Bennett, [employer] - 11/29/2022 2:00 PM EST HISTORY OF [...] Signs: Resp 18 Ht 1.6 m (5' 3") Wt 73.9 kg (163 lb) BMI 28.87 [...] within this encounter was likely aided with Elias Borges Urzeda, an electronic forestry biology specialist device. Please excuse any grammatical errors or omissions that may not have been recognized at the time of this encounter. documented in this encounterMemorial Health System01-19-2023 History and physical note* Rudy Aburto MD - 10/24/2022 3:00 PM EST I saw Azeb Hutchison at [facility] on 10/24/2022. Assessment/Plan: 56 y/o [...] Component Value Date CREATSERUM 1.58 (H) 09/09/2022 [facility] Work Phone: 1(171) 544-644301-19-2023 History and physical note* Rudy Aburto MD - 10/24/2022 3:00 PM EST I saw Azeb Hutchison at [facility] on 10/24/2022. Assessment/Plan: 56 y/o [...] CREATSERUM 1.58 (H) 09/09/2022 documented in this encounterMemorial Health System12-05-2022 NoteCLINICAL DATA: Left calf cramping. PROCEDURE: Left lower extremity venous duplex ultrasound TECHNIQUE: Woodard-scale, color flow, and waveform spectral analysis was performed of the left lower extremity. FINDINGS: The left common femoral, profunda femoral, femoral, and popliteal veins were compressible. The saphenous vein was compressible. No venous thrombosis was seen. The veins fill with color Doppler. Augmentation was normal. [id number] Emergency department Note* Ann-Marie Maier RN - 09/09/2022 5:04 PM EST Called name in waiting room. No one answered [facility] Emergency department Note* Ann-Marie Maier RN - 09/09/2022 5:04 PM EST Called name in waiting room. No one answered documented in this encounterMemorial Health System05-06-2022 History of Present illness Narrative* Sandy Manrique, PT - 02/08/2022 3:15 PM EDT [facility] OUT[facility] DAILY TREATMENT NOTE Today's Date [...] Vitals R ankle ORIF/billy splints Therapeutic Exercise (80323) Parameters AROM PF/DF 10x3 EV/IN 10x3 Intervention standing hip abd 2x10 bilat, mini squats 2x10 Parameters wedge gastoc/DF stretch 20"x5 (constant cuing to keep heel down and avoid knee hyperext) Parameters -- Intervention -- Parameters modified mini lunges 10x2 each to improve ankle mobility (in parallel bars), Added posterior squat with R foot in front Intervention bridges with 5 " holds 2x10, clamshell with RTB 2x10 bilat Parameters Toe curls and extensions x 25 to START Intervention lateral ambulation 30'x 2 lap Parameters TRUE Stretch ankle DF, hamstring, PF Intervention seated single heel raises with 25# plate x 10 with slow eccentric control followed by x10 controlled reps x 3 sets, then 15" hold in PF with slowed eccentric control x 5 Parameters standing heel raises in parallel bars 2x10 with eccentric control Intervention Nustep 10 min L2 with UE A and VC's to keep (R) heel down Parameters HEP: ankle AROM PF/DF inver/Ever, LAQ, towel scrunches, SLR, SL abd, added clamshells, bridges, standing hip abd, and lat amb Add more exercises? Yes Neuro Re-Ed (82979) Intervention TR-X Weight shifting squats (front, posterior chain) 2 x 10 each- Parameters tandem stance with turn (made dynamic this date), posterior chain x 10 Manual Therapy (70149) Intervention Gentle PROM DF/PF x 10, gentle Inver/Ever x 10 Parameters Grade 2-3 posterior mobilizations with intermit MWM and calcaneal distraction 8 mins NT due to trialing MET for TA and STM/DTM to muscle belly 8 Gait Training (86716) Intervention Hurdles for IC heel strike, slowed down gait with no hurdles to emphasis better mechanics with less of a heel strike, worked on lengthening stride and midstance. Told pt to verbally tellher self what she is working on at home while she does it "example, heel to toe) 12' PT Treatment Times [...] with physician Sandy Manrique PT Licensed PT [id number] documented in this [id number] History of Present illness Narrative* Debra Anand, NURSING SUPPORT WORKER - 01/29/2022 4:00 PM EDT [facility] DAILY TREATMENT NOTE Today's Date [...] 01/29/22 1602 OTHER Precautions/Contraindications IE Gloria Manrique [phone] Notes 100% WB Vitals R ankle ORIF/billy splints Therapeutic Exercise (12111) Parameters AROM PF/DF 10x3 EV/IN 10x3 Intervention standing hip abd 2x10 bilat, mini squats 2x10 Parameters wedge gastoc/DF stretch 20"x5 (constant cuing to keep heel down and avoid knee hyperext) Parameters GameReady at End, 36 deg elevated 10' to END to foot/ankle Intervention amb without AD and in shoe 75'x1, 80'x1 Parameters modified mini lunges 10x2 each to improve ankle mobility (in parallel bars), Added posterior squat with R foot in front Intervention bridges with 5 " holds 2x10, clamshell with RTB 2x10 bilat Parameters Toe curls and extensions x 25 to START Intervention lateral ambulation 30'x 2 lap Parameters TRUE Stretch ankle DF, hamstring, PF Intervention seated single heel raises with 25# plate x 10 with slow eccentric control followed by x10 controlled reps x 3 sets, then 15" hold in PF with slowed eccentric control x 5 Parameters standing heel raises in parallel bars 2x10 with eccentric control Intervention Nustep 10 min L2 with UE A and VC's to keep (R) heel down--NT Parameters HEP: ankle AROM PF/DF inver/Ever, LAQ, towel scrunches, SLR, SL abd, added clamshells, bridges, standing hip abd, and lat amb Add more exercises? Yes Neuro Re-Ed (52912) Intervention TR-X Weight shifting squats (front, posterior chain) 2 x 10 each--NT Parameters tandem stance with turn (made dynamic this date), posterior chain x 10 Parameters -- Manual Therapy (34989) Intervention Gentle PROM DF/PF x 10, gentle Inver/Ever x 10 Parameters Grade 2-3 posterior mobilizations with intermit MWM and calcaneal distraction 8 mins Gait Training (77987) Intervention -- PT Treatment Times Therex Total [...] as tolerated. Debra Anand PTA STATE LICENSE, [id number] documented in this [id number] History of Present illness Narrative* Debra Anand PTA - 01/22/2022 3:15 PM EDT [facility] DAILY TREATMENT NOTE Today's Date [...] 01/22/22 1519 OTHER Precautions/Contraindications IE Gloria Manrique [phone] Notes weightbearing from 10 to 100% of body weight over approximately 6 weeks of physical therapy in the boot and then wean out of the boot Vitals R ankle ORIF/billy splints Therapeutic Exercise (47857) Parameters AROM PF/DF 10x3 EV/IN 10x3 Parameters wedge gastoc/DF stretch 15"x5 (constant cuing to keep heel down and [...] x10 controlled reps x 3 sets, then 15" hold in PF with slowed eccentric control x 5 Parameters standing heel raises in parallel bars 2x10 with eccentric control Intervention Nustep 10 min L2 with UE A and VC's to keep (R) heel down Parameters HEP: ankle AROM PF/DF inver/Ever, LAQ, towel scrunches, SLR, SL abd Add more exercises? Yes Neuro Re-Ed (95159) Intervention TR-X Weight shifting squats (front, posterior chain) x 10 each Intervention -- Intervention -- Manual Therapy (70074) Intervention Gentle PROM DF/PF x 10, gentle [...] to 2/10 during activity in 6 weeks 01/10/202210/15-5/ pain IMPAIRMENT: Improve MMT of Right Ankle [...] set goals in POC as tolerated. Debra nAand PTA STATE LICENSE, [id number] documented in this [id number] History of Present illness Narrative* Sandy Manrique, PT - 01/15/2022 3:15 PM EDT [facility] DAILY TREATMENT NOTE Today's Date [...] Vitals R ankle ORIF/billy splints Therapeutic Exercise (13019) Parameters AROM PF/DF 10x3 EV/IN 10x3 (limited ROM with both)-HEP Parameters wedge gastoc/DF stretch 10"x5 (constant cuing to keep heel down and [...] Longsitting gastroc and soleus stretch with towel: 30" x 10- held/bring back Parameters Toe curls [...] abd Add more exercises? Yes Neuro Re-Ed (94160) Intervention TR-X Weight shifting squats (front, posterior chain) x 10 each Intervention stagger stance ( B) modified as needed with soft knee bend with rotational movement-held/bring back Manual Therapy (42188) Intervention Gentle PROM DF/PF x 20, gentle [...] focus on possible ESTIM for gastroc Sandy Manrique, PT Licensed PT [id number] documented in this [id number] History of Present illness Narrative* Radha Calvillo LPN - 12/11/2021 11:23 AM EST Physical therapy contacted Kenya LAZARO concerning patient's progress. Dr Eulalio John is at [facility] in [place]. Appointment made for patient 10 am 12/12/2021. Unable to contact patient VM full. I called patient's daughter Gilma she will take her mother to her appointment tomorrow. Addressand info given to daughter . She voices understanding. Clinicals faxed to [phone]. documented in this [id number] History of Present illness Narrative* Ni Van, DOT - 12/07/2021 3:15 PM EST [facility] DAILY TREATMENT NOTE Today's Date 12/07/2021 Patient Name: Azeb Hucthison Date of : 1965 Current Visit #: [...] fearful that she has set herself back. PT-Gloria came over and spoke to pt about maybe stretching it a little too much and the muscles getting irritated around her ankle bend. To back off today and to get back to it next week as tolerated. Pt was not able to filler picker her new shoes before coming into therapy, she did state that they arrived at [facility]. Objective: Began with seated toe curls [...] Treatments: Physical Therapy Exercise Log - 12/07/21 1519 OTHER Precautions/Contraindications IE Gloria Manrique 3:19PM-4:13PM Notes weightbearing from 10 to 100% of body weight over approximately 6 weeks of physical therapy in the boot and then wean out of the boot Vitals R ankle ORIF Therapeutic Exercise (70886) Parameters AROM PF/DF 10x3 EV/IN 10x3 (limited ROM with both)-HEP Parameters wedge gastoc/DF stretch 10"x5 (constant cuing to keep heel down and [...] Longsitting gastroc and soleus stretch with towel: 30" x 10- held/bring back Parameters Toe curls [...] abd Add more exercises? Yes Neuro Re-Ed (02810) Parameters Lateral weight shifts with slight bend in knees to prevent genu recurvatum x 5h48-spdb/bring back Intervention kneeling on Airex ankle drivers with UE use with emphasis on keeping heel down (very limited motion) 5"10x2 then with manual OP from therapist (MWM) 10"x15 -did not do manual OP this date per pt's request Intervention stagger stance ( B) modified as needed with soft knee bend with rotational movement-held/bring back Parameters gait/step mechanics training with parallel bars working on step, heel strike, through topush of then retro return back x 15 with constant cuing, Tc, education, and demo all in parallel bars with UE A Manual Therapy (57273) Intervention Gentle PROM DF/PF x 20, gentle Inver/Ever x 10-held/bring back Parameters Grade 2-3 posterior mobilizations with intermit MWM and calcaneal distraction completed in seated and then with ankle drivers - held today d/t pt's pain level Gait Training (68561) Intervention amb (without boot or AD) 30'x2 laps, 150'x1, 40'x1, laps constant VC's, demo, education)-only performed gait in // bars this Modalities Modalities Vasopneumatic Treatment Parameters 15 min [...] Nustep with her motion. She states that "it feels much better". Great relief with Game Ready. Pt left [...] next session. Ni Van PTA STATE LICENSE, [id number] documented in this [id number] History of Present illness Narrative* Debra Anand, NURSING SUPPORT WORKER - 12/06/2021 3:15 PM EST [facility] DAILY TREATMENT NOTE Today's Date [...] 12/06/21 1518 OTHER Precautions/Contraindications IE Gloria Manrique [phone] Notes weightbearing from 10 to 100% of body weight over approximately 6 weeks of physical therapy in the boot and then wean out of the boot Vitals R ankle ORIF Therapeutic Exercise (67473) Intervention -- Parameters AROM PF/DF 10x3 EV/IN 10x3 (limited ROM with both) Parameters wedge gastoc/DF stretch 10"x5 (constant cuing to keep heel down and [...] Longsitting gastroc and soleus stretch with towel: 30" x 10 Parameters Toe curls and extensions x 20 Intervention lat amb at plinth (NURSING SUPPORT WORKER SBA) x5 laps without boot and with UE A Parameters mini squats 2x10 with VC's and demo for mechanics to improve ankle DF Intervention Nustep 5 min L2 with UE A and VC's to keep (R) heel down-NV to begin if needed Parameters HEP: ankle AROM PF/DF inver/Ever, LAQ, towel scrunches, SLR, SL abd Add more exercises? Yes Neuro Re-Ed (14251) Intervention -- Parameters Lateral weight shifts with slight bend in knees to prevent genu recurvatum x 2x20 Intervention kneeling on Airex ankle drivers with UE use with emphasis on keeping heel down (very limited motion) 10"x1 then with manual OP from therapist (MWM) 10"x15 Parameters -- Intervention stagger stance ( B) modified as needed with soft knee bend with rotational movement Parameters gait/step mechanics training with parallel bars working on step, heel strike, through topush of then retro return back x 15 with constant cuing, Tc, education, and demo all in parallel bars with UE A Intervention -- Manual Therapy (72954) Intervention Gentle PROM DF/PF x 20, gentle Inver/Ever x 10 Parameters Grade 2-3 posterior mobilizations with intermit MWM and calcaneal distraction completed in seated and then with ankle drivers 10 mins Gait Training (78578) Intervention amb (without boot or AD) 30'x2 [...] ankle mobility. Debra Anand PTA STATE LICENSE, [id number] documented in this [id number] History of Present illness Narrative* Ni Van PTA - 11/30/2021 3:15 PM EST [facility] DAILY TREATMENT NOTE Today's Date [...] Treatments: Physical Therapy Exercise Log - 11/30/21 1544 OTHER Precautions/Contraindications IE Gloria Manrique 3:37PM-4:05PM Notes weightbearing from 10 to 100% of body weight over approximately 6 weeks of physical therapy in the boot and then wean out of the boot Vitals R ankle ORIF Therapeutic Exercise (68160) Intervention Seated weight bearing in front 30" x 5 (without boot this date), move ankle back to increase DF DC to home Parameters AROM PF/DF 10x3 EV/IN 10x3 (limited ROM with both) Parameters GameReady at End, 36 deg elevated 10'-NT/time Parameters -- Intervention Longsitting gastroc and soleus stretch with towel: 30" x 8 each-NT/time Parameters Toe curls and extensions x 20-NT/time Parameters -- Intervention lat amb at [facility] (NURSING SUPPORT WORKER SBA) x5 laps without boot and with UE A Parameters mini squats NV Intervention Nustep 5 min L2 with UE A and VC's to keep (R) heel down-NT/time Parameters HEP: ankle AROM PF/DF inver/Ever, LAQ, towel scrunches, SLR, SL abd Add more exercises? Yes Neuro Re-Ed (07644) Intervention Tandem weights without boot donned to promote foot flat. in parallel bars 2x20 Parameters Lateral weight shifts with slight bend in knees to prevent genu recurvatum x 2x20 Intervention kneeling on Airex ankle drivers with UE use with emphasis on keeping heel down (very limited motion) 5"10x2 Parameters Posterior chain bows x 8-NT/time Intervention [...] small wedge with yellow narinder disc press "gas" (mimic driving), blue narinder disc on floorfor "brake" 1 min ea x2 Manual Therapy (33068) Intervention Gentle PROM DF/PF x 20, gentle Inver/Ever x 10-NT/time Parameters Grade 2-3 posterior mobilizations with intermit MWM and calcaneal distraction completed in both supine and WB 11-30- performed post mobs with gentle retrograde MA 5min Gait Training (79049) Intervention amb (without boot) with bilat crutches 20-30'x4 laps, amb with single crutch x 20' x 1, gait training without AD x 25'x1 with DESKTOP PUBLISHER (constant VC's, demo, education) NT/time Modalities Modalities [...] can drive yet (wanted to drive to [place]). PT-Gloria advised against it after having trialed [...] as tolerable. Ni Van PTA STATE LICENSE, [id number] documented in this [id number] History of Present illness Narrative* Sandy Manrique, PT - 11/27/2021 3:15 PM EST [facility] DAILY TREATMENT NOTE Today's Date 11/27/2021 Patient Name: Azeb Hutchison Date of : 1965 Current Visit #: 15 Authorized Visits: 199 Case Name: R ankle [...] boot Vitals R ankle ORIF Therapeutic Exercise (70301) Intervention Seated weight bearing in front 30" x 5 (without boot this date), move ankle back to increase DF DC to home Parameters AROM PF/DF 10x3 EV/IN 10x3 (limited ROM with both) Parameters GameReady at End, 36 deg elevated 10' Parameters Ankle drivers with airex and UE support 5"15x1 R then with OP from therapist 3-5" 2x10 Intervention Longsitting gastroc and soleus stretch with towel: 30" x 8 each Parameters Toe curls and [...] abd Add more exercises? Yes Neuro Re-Ed (47252) Intervention Tandem weights without boot donned to [...] parallel bars with UE A Manual Therapy (02277) Intervention Gentle PROM DF/PF x 20, gentle Inver/Ever x 10 Parameters Grade 2-3 posterior mobilizations with intermit MWM and calcaneal distraction 10 min completed in both supine and WB Gait Training (46592) Intervention amb (without boot) with bilat crutches 20-30'x4 laps, amb with single crutch x 20' x 1, gait training without AD x 25'x1 with DESKTOP PUBLISHER (constant VC's, demo, education) NT Modalities Modalities [...] in boot. Sandy Manrique, PT Licensed PT [id number] documented in this [id number] History of Present illness Narrative* Sandy Manrique, PT - 11/23/2021 3:15 PM EST [facility] DAILY TREATMENT NOTE Today's Date [...] boot Vitals R ankle ORIF Therapeutic Exercise (48877) Intervention Seated weight bearing in front 30" x 5 (without boot this date), move ankle back to increase DF Parameters AROM PF/DF 10x3 EV/IN 10x3 (limited ROM with both) Parameters GameReady at End, 36 deg elevated 10' Parameters Ankle drivers with airex and UE support 5"15x1 R then with OP from therapist 3-5" 2x10 Intervention Longsitting gastroc and soleus stretch with towel: 30" x 8 each Parameters Went over a [...] abd Add more exercises? Yes Neuro Re-Ed (70451) Intervention Tandem weights without boot donned to [...] parallel bars with UE A Manual Therapy (49509) Intervention Gentle PROM DF/PF x 20, gentle Inver/Ever x 10 Parameters Grade 2-3 posterior mobilizations with intermit MWM and calcaneal distraction 13 min completed in both supine and WB Gait Training (87312) Intervention amb (without boot) with bilat crutches 20-30'x4 laps, amb with single crutch x 20' x 1, gait training without AD x 25'x1 with DESKTOP PUBLISHER (constant VC's, demo, education) Modalities Modalities Vasopneumatic [...] of POC Sandy Manrique PT Licensed PT [id number] documented in this [id number] History of Present illness Narrative* Debra Anand, NURSING SUPPORT WORKER - 11/21/2021 4:00 PM EST [facility] DAILY TREATMENT NOTE Today's Date [...] to work. Pt notes having a massage re cent which helped with sx and swelling. Objective: Adjusted pt crutch height and Educated pt on scar mgmt and cross friction massage with barrier. Cont'd with stretches, ankle ROM, and manual to begin while introducing Nustep to improve ankle mobility and wbing, lat amb in bars, progressed wbing without boot and with bilat crutches and trial with DESKTOP PUBLISHER, gait mechanics education and training, all to improve (R) foot/ankle/LE mobility, stability, strength, and endurance to progress pt toward set goals in POC. Gameready to (R) ankle to decrease pain and sx to end. Treatments: Physical Therapy Exercise Log - 11/21/21 1600 OTHER Precautions/Contraindications IE Gloria Manrique [phone] Notes weightbearing from 10 to 100% of body weight over approximately 6 weeks of physical therapy in the boot and then wean out of the boot Vitals R ankle ORIF Therapeutic Exercise (11071) Intervention Seated weight bearing in front 30" x 5 (without boot this date), move ankle back to increase DF Parameters AROM PF/DF 10x3 EV/IN 10x3 (limited ROM with both) Intervention -- Parameters -- Intervention -- Parameters GameReady at End, 36 deg elevated 10' Intervention -- Parameters Ankle drivers with airex and UE support 5"15x1 R then with OP from therapist 3-5" 2x10 Intervention Longsitting gastroc and soleus stretch with towel: 30" x 8 each Parameters -- Intervention -- [...] abd Add more exercises? Yes Neuro Re-Ed (37604) Intervention Tandem weights without boot donned to [...] parallel bars with UE A Manual Therapy (29928) Intervention Gentle PROM DF/PF x 20, gentle Inver/Ever x 10 Parameters Grade 2-3 gentle posterior mobilizations with intermit MWM and calcaneal distraction 13 min Additional Exercises Add more exercises? -- Gait Training (32278) Intervention amb (without boot) with bilat crutches 20-30'x4 laps, amb with single crutch x 20' x 1, gait training without AD x 25'x1 with DESKTOP PUBLISHER (constant VC's, demo, education) Modalities Modalities Vasopneumatic [...] gait progressions. Debra Anand PTA STATE LICENSE, [id number] documented in this [id number] History of Present illness Narrative* Radha Calvillo LPN - 11/20/2021 1:46 PM EST Patient requested crutches last week. Prescription sent to [facility] per patient request. DME called they don't have crutches. This nurse tried to call patient VM full. documented in this [id number] History of Present illness Narrative* Sandy Manrique, PT - 11/15/2021 3:15 PM EST [facility] DAILY TREATMENT NOTE Today's Date [...] boot Vitals R ankle ORIF Therapeutic Exercise (35695) Intervention Seated weight bearing in front 30" x 5 (without boot this date), move ankle back to increase Parameters AROM PF/DF 10x3 EV/IN 10x3 (limited ROM with both) Intervention intrinsic strengthening towel scrunches 2 mins (R) Parameters SLR 2x10 bilat, SL abd 2x10 bilat R Intervention Isometrics PF/DF, Inv/Ev (light) 5" x 10 against NURSING SUPPORT WORKER manual resist Parameters GameReady at End, 36 deg elevated 10' Intervention LAQ 5" 2x10 R 3# Parameters Ankle drivers with airex and UE support 5"15x1 R Intervention Longsitting gastroc and soleus stretch with towel: 30" x 5 each Parameters narinder disc PF/DF 10x2 R Intervention Bridges: 2 x 10 Parameters Went over a lot of exercises verbally this date in this section to complete at home due to focus on manual and gait Parameters HEP: ankle AROM PF/DF inver/Ever, LAQ, towel scrunches, SLR, SL abd Add more exercises? Yes Neuro Re-Ed (72169) Intervention Tandem weights without boot donned to [...] with two crutches 8 minutes Manual Therapy (72958) Intervention Gentle PROM DF/PF x 20, gentle [...] Visit with focus on continuation of POC \\Sandy Manrique, PT Licensed PT [id number] documented in this [id number] History of Present illness Narrative* Sandy Manrique, PT - 11/13/2021 3:15 PM EST [facility] DAILY TREATMENT NOTE Today's Date [...] boot Vitals R ankle ORIF Therapeutic Exercise (54089) Intervention Seated weight bearing in front 30" x 5 (without boot this date), move ankle back to increase Parameters AROM PF/DF 10x3 EV/IN 10x3 (limited ROM with both) Intervention intrinsic strengthening towel scrunches 2 mins (R) Parameters SLR 2x10 bilat, SL abd 2x10 bilat R Intervention Isometrics PF/DF, Inv/Ev (light) 5" x 10 against NURSING SUPPORT WORKER manual resist Parameters GameReady at End, 36 deg elevated 10' Intervention LAQ 5" 2x10 R 3# Parameters Ankle drivers with airex and UE support 5"15x1 R Intervention Longsitting gastroc and soleus stretch with towel: 30" x 5 each Parameters narinder disc PF/DF 10x2 R Intervention Bridges: 2 x 10 Parameters HEP: ankle AROM PF/DF inver/Ever, LAQ, towel scrunches, SLR, SL abd Neuro Re-Ed (62345) Intervention weight shifting in boot and with FWW or UE A on scale in standing x 30 (approx 30-40#),-NT/time Parameters Added modified tandem weight shifts with UE assist in parallel bars, anterior/posterior rocks-completed in seated due to pain Intervention 20 to 50 lbs 10 seconds intervals for endurance for 1 minute-NT/time Parameters Seated weight shifts with reaches to incorporate multi directional Manual Therapy (47683) Intervention Gentle PROM DF/PF x 20, gentle [...] WB, moving away from scooter use Sandy Manrique, PT Licensed PT [id number] documented in this [id number] History of Present illness Narrative* Milena Yancey, NURSING SUPPORT WORKER - 11/06/2021 3:15 PM EST [facility]ATION DAILY TREATMENT NOTE Today's Date [...] boot Vitals R ankle ORIF Therapeutic Exercise (16212) Intervention Seated weight bearing in front 30" x 5 (without boot this ) watch wbing-NT/time Parameters AROM PF/DF 10x3 EV/IN 10x3 (limited ROM with both) Intervention intrinsic strengthening towel scrunches 2 mins (R) Parameters SLR 2x10 bilat, SL abd 2x10 bilat R Intervention Isometrics PF/DF, Inv/Ev (light) 5" x 10 against NURSING SUPPORT WORKER manual resist Parameters GameReady at End, 36 deg elevated 10' Intervention LAQ 5" 2x10 R 3# Parameters Ankle drivers with airex and UE support 5"10x1 R Intervention Longsitting gastroc and soleus stretch with towel: 20" x 5 each Parameters narinder disc PF/DF 10x2 R Intervention Bridges: 2 x 10 Parameters HEP: ankle AROM PF/DF inver/Ever, LAQ, towel scrunches, SLR, SL abd Neuro Re-Ed (41777) Intervention weight shifting in boot and with FWW or UE A on scale in standing x 30 (approx 30-40#),-NT/time Parameters Added modified tandem weight shifts with UE assist in parallel bars, anterior/posterior rocks-NT/time Intervention 20 to 50 lbs 10 seconds intervals for endurance for 1 minute-NT/time Manual Therapy (21379) Intervention Gentle PROM DF/PF x 20, gentle [...] sx control Milena Yancey PTA STATE LICENSE, [id number] documented in this [id number] History of Present illness Narrative* Ni aVn, [place] - 11/01/2021 3:15 PM EST [facility] DAILY TREATMENT NOTE Today's Date [...] boot Vitals R ankle ORIF Therapeutic Exercise (44912) Intervention Seated weight bearing in front 30" x 5 (without boot this ) watch wbing-NT/time Parameters AROM PF/DF 10x3 EV/IN 10x3 (limited ROM with both) Intervention intrinsic strengthening towel scrunches 2 mins (R) Parameters SLR 2x10 bilat, SL abd 2x10 bilat R Intervention Isometrics PF/DF, Inv/Ev (light) 5" x 10 against NURSING SUPPORT WORKER manual resist Parameters GameReady at End, 36 deg elevated 10' Intervention LAQ 5" 2x10 R Parameters Ankle drivers with airex and UE support 5"10x1 R Intervention Longsitting gastroc and soleus stretch with towel: 20" x 5 each Parameters narinder disc PF/DF 10x2 R Parameters HEP: ankle AROM PF/DF inver/Ever, LAQ, towel scrunches, SLR, SL abd Neuro Re-Ed (07745) Intervention weight shifting in boot and with FWW or UE A on scale in standing x 30 (approx 30-40#),-NT/time Parameters Added modified tandem weight shifts with UE assist in parallel bars, anterior/posterior rocks-NT/time Intervention 20 to 50 lbs 10 seconds intervals for endurance for 1 minute-NT/time Manual Therapy (93884) Intervention Gentle PROM DF/PF x 20, gentle [...] as tolerable. Ni Van PTA STATE LICENSE, [id number] documented in this [id number] History of Present illness Narrative* Cely Reyes, NURSING SUPPORT WORKER - 10/26/2021 3:15 PM EST [facility] DAILY TREATMENT NOTE Today's Date [...] 10/26/21 1518 OTHER Precautions/Contraindications IE Gloria Manrique [phone] Notes weightbearing from 10 to 100% of body weight over approximately 6 weeks of physical therapy in the boot and then wean out of the boot Vitals R ankle ORIF Therapeutic Exercise (82268) Intervention Seated weight bearing in front 30" x 5 (without boot this ) watch wbing Parameters AROM PF/DF x 30, EV/IN x 30 (limited ROM with both) Intervention intrinsic strengthening towel scrunches 2 mins (R) Parameters SLR 2x10 bilat, SL abd 2x10 bilat Intervention Isometrics PF/DF 5" x 10 against NURSING SUPPORT WORKER manual resist Parameters GameReady at End, 36 deg elevated 10' Intervention LAQ 5" 2x10 bilat Intervention Longsitting gastroc and soleus stretch with towel: 30" x 5 each Parameters HEP: ankle AROM PF/DF inver/Ever, LAQ, towel scrunches, SLR, SL abd Neuro Re-Ed (83281) Intervention weight shifting in boot and with FWW or UE A on scale in standing x 30 (approx 30-40#) Parameters Added modified tandem weight shifts with UE assist in parallel bars, anterior/posterior rocks Manual Therapy (26676) Intervention Gentle PROM DF/PF x 20, gentle [...] improved mobility Cely Reyes PTA STATE LICENSE, [id number] documented in this [id number] History of Present illness Narrative* Sandy Manrique, PT - 10/18/2021 3:15 PM EST [facility] REH[facility]IL[facility]ATION DAILY TREATMENT NOTE Today's Date [...] Treatments: Physical Therapy Exercise Log - 10/18/21 2548 OTHER Precautions/Contraindications IE Gloria Manrique 3:15 Notes weightbearing from 10 to 100% of body weight over approximately 6 weeks of physical therapy in the boot and then wean out of the boot Vitals R ankle ORIF Therapeutic Exercise (40657) Intervention Seated weight bearing in front 30" x 5 (without boot this date) watch wbing Parameters AROM PF/DF x 30, EV/IN x 30 (limited ROM with both) Intervention intrinsic strengthening towel scrunches 2 mins (R) Parameters SLR 2x10 bilat, SL abd 2x10 bilat Intervention Isometrics PF/DF 5" x 10 against NURSING SUPPORT WORKER manual resist Parameters Measure swelling, game ready Intervention LAQ 5" 2x10 bilat Parameters weight shifting in boot and with FWW or UE A on scale 25-30% in standing x 30 held todaydue to pain and pt request add back in next visit Intervention Longsitting gastroc and soleus stretch with towel: 30" x 5 each Parameters HEP: ankle AROM PF/DF inver/Ever, LAQ, towel scrunches, SLR, SL abd Manual Therapy (30028) Intervention Gentle PROM DF/PF x 20, gentle [...] of POC Sandy Manrique, PT Licensed PT [id number] documented in this [id number] History of Present illness Narrative* Kenya Davila, WAGNER - 10/17/2021 3:15 PM EST POST OP NOTE [facility] [address] [facility] [address] [facility] [id number] Procedure date:08/01/21 Azeb Hutchison is a 55 [...] 4 visits due to a setback with Gela. At next vist we will not need new xrays. @Return in about 4 weeks (around 11/14/2021). Kenya Davila CNP 10/17/2021 documented in this [id number] History of Present illness Narrative* Debra Anand, [place] - 09/20/2021 3:15 PM EST Images from the original note were not included. [facility] DAILY TREATMENT NOTE Today's Date [...] Pt notes using ice for pain mgmt "all day" when home (educated given on parameters of [...] 09/20/21 1520 OTHER Precautions/Contraindications IE Gloria Manrique [phone] Notes weightbearing from 10 to 100% of body weight over approximately 6 weeks of physical therapy in the boot and then wean out of the boot Vitals R ankle ORIF Therapeutic Exercise (21685) Intervention Seated weight bearing in front. with weight shifting 2x10 (without boot this ) watch wbing Parameters AROM PF/DF x 20, EV/IN x 20 (limited ROM with both) Intervention intrinsic strengthening towel scrunches 2 mins (R) Parameters SLR 2x10 bilat, SL abd 2x10 bilat Intervention Isometrics PF/DF 5" x 10 against NURSING SUPPORT WORKER manual resist Parameters Measure swelling, game ready Intervention LAQ 5" 2x10 bilat Parameters weight shifting in boot and with FWW or UE A on scale 10-20% in standing NV Parameters HEP: ankle AROM PF/DF inver/Ever, LAQ, towel scrunches, SLR, SL abd Manual Therapy (15074) Intervention Gentle PROM DF/PF x 20, gentle [...] responseto HEP. Debra Anand PTA STATE LICENSE, [id number] documented in this [id number] History of Present illness Narrative* Sandy Manrique, PT - 09/18/2021 3:15 PM EST [facility] Evaluation Today's Date 09/18/2021 Patient [...] She has a follow-up in October with PSYCHIATRIC LPN. She is in a walking boot this [...] Treatments: Physical Therapy Exercise Log - 09/18/21 5115 OTHER Precautions/Contraindications IE Gloria Manrique 15:15-16:00 Notes weightbearing from 10 to 100% of body weight over approximately 6 weeks of physical therapy in the boot and then wean out of the boot Vitals R ankle ORIF Therapeutic Exercise (85256) Intervention Seated weight bearing in front. with weight shifting Parameters AROM PF/DF x 20, EV/IN Intervention intrinsic strengthening Parameters SLR Intervention Isometrics Parameters Measure swelling, game ready Manual Therapy (22204) Intervention Gentle PROM DF/PF Parameters Grade 1-2 posterior mobilizations PT Treatment Times Therex Total Time 10 Direct Treatment Time 10 Total Treatment Time 45 Treatment Plan: Frequency of Visits: twice per week Duration: 6-8 weeks weeks Interventions: Therapeutic Exercise (54186), Neuromuscular Re-Education (88339), Manual Therapy (28759), Therapeutic/ Functional Activities (61747), Gait Training (33498) and Vasopneumatic (90718) Rehab Potential: good Goals: Physical Therapy Ortho [...] expectations per surgery. Clinical Impression: CPT Code 37265 Low 29490 Moderate 52522 High History 0 1-2 3+ Comorbidities: asthma, [...] judgment that services are medically necessary. Sandy Manrique, PT Licensed PT [id number] documented in this [id number] History of Present illness Narrative* Ximena John [...] with this patient that I am leaving [facility]. Her next appointment will be with one [...] CC: Rehana Hernandez MD documented in this [id number] History of Present illness Narrative* Ximena John [...] CC: Rehana Hernandez MD documented in this [id number] History of Present illness Narrative* Britney Lazo [...] for oxycodone and ibuprofen to be sent [place] [facility]. Dr. John signed prescriptions. Genny stated she appreciated the clarification and she would call the patient to lether know about the medications being sent to the pharmacy. documented in this [id number] Hospital course Narrative* Yane Powers CNP - 08/03/2021 10:27 AM EDT [facility] [place] Azeb Hutchison Admitted: 07/31/2021 Discharge [...] Follow Up: Rehana Hernandez MD [address] [facility] [id number] Follow up 1-2 weeks Ximena John MD [address] [facility] [id number] Follow up Condition at Discharge: Stable Disposition: [...] EDT Patient seen, evaluated and managed by [facility] independently. I was not involved in the care of this patient, but was readily available for consultation if needed by [facility]. documented in this [id number] History of Present illness Narrative* Yessenia DOT Vega - 08/03/2021 9:14 AM EDT Physical Therapy [...] working on Obtaining order to fax to [facility]. Home Living Obtained Home Living and [...] away. 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) For complete objective data, detailed plan of [...] EDT Refused to have I.V site changed "No I m going home today" * Vanessa Kiran CNP - 08/02/2021 10:48 AM EDT [facility] [place] Assessment and Plan Foster is [...] (36.4 C) (Oral) Resp 14 Ht 5' 3" Wt 69.4 kg (153 lb) SpO2 99% [...] Kiran CNP - 08/01/2021 3:09 PM EDT [facility] [place]GRESS NOTE Assessment and Plan Foster is [...] (36.3 C) (Infrared) Resp 16 Ht 5' 3" Wt 69.4 kg (153 lb) SpO2 100% [...] Radiology, Medications and Transcriptions documented in this [id number] Miscellaneous Notes* Plan of Care - Nara [...] procedure and all implants were available in theroo. Allergies were reviewed and antibiotics were infused [...] along the posterior aspect of the distal fibu la. Appropriate size and number of locking and [...] threaded cancellous screws were placed in these river pilot holes. C-arm was used to confirm reduction [...] transferred to the postoperative holding area. Ximena Jonh * Plan of Care - Dang Leon RN - 08/01/2021 3:06 AM EDT Problem: Actual or potential alteration in health Goal: Absence of healthcare acquired conditions Outcome: Partially Met Goal: Knowledge of Interdisciplinary Plan of Care Outcome: Partially Met Problem: Pain Goal: Manage acute pain Outcome: Partially Met Note: NORCO and dilwilberid ordered PRN for pain. Goal: Manage chronic [...] treatment plan, and disposition documented in this [id number] Consult note* Ana Kwong OT - 08/02/2021 [...] DME Recommendation: Tub seat, Elevated toilet seat (Automatic Glove Former) DME Rationale: Patient's condition creates an increased [...] patient's family / caregiver support is a lab aid for return to prior level of function. The patient's compliance is a lab aid, awareness of own capacity and performance is a lab aid,education level is a lab aid to return to prior level of function. [...] distracted environment Hearing Status: WFL Social Interaction: WFL ADL Grooming: Stand by assist LE Dressing: [...] toilet with elevated seat height, Grab bars Garment Alteration Examiner: other (comment) (Knee Scooter) Home Living Obtained [...] away. 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 Pt instructed on use of fibre technologist and compensatory technique to thread RLE through [...] by assist, with device (knee scooter ) Garment Alteration Examiner - Standing Static: other (comment) (knee scooter ) Bed Mobility Supine to Sit: Head of bed flat, Minimal assist (for RLE) Sit to Supine: (pt in bathroom at end of session with PSA) Transfers Stand Pivot Transfers: Contact guard assist (to knee scooter ) Garment Alteration Examiner: other (comment) (knee scooter ) Additional Transfer Trial 2: Yes Sit to Stand Trial 2: Contact guard assist Garment Alteration Examiner Trial 2: other (comment) (knee scooter ) Additional Transfer Trial 3: Yes Sit to Stand Trial 3: Contact guard assist Garment Alteration Examiner Trial 3: other (comment) (knee scooter ) Car Transfers: Stand by assist Toilet Transfers: Stand by assist, Grab bars, Additional time Garment Alteration Examiner: other (comment) (knee scooter ) Gait/Locomotion Gait [...] away. Prior Level of Function Level of [place] - Transfers/Ambulation/Mobility: Independent with functional transfers, Independent with household ambulation Level of [place] - ADLs: Independent Level of [place] - Homemaking: Independent Driving: Patient drives Vocational: [...] BILAT. BREAST REDUCTION, FREE NIPPLE PROCEDURE 2018 For complete objective data, detailed plan of [...] TANYA, Rogelio Shaw MD, 300 mg at HYDROcodone-acetaminophen (NORCO) 5-325 mg per tablet 1 [...] Friends and Family: Not on file Attends Taoism Services: Not on file Active Member of [...] further surgery,risks of anesthesia, DVT, PE, CVA, UT, and . The patient was asked to "repeat back" understanding of the above conversation and additional clarification was provided as needed. A witness has documented that the patient read the consent form, reported understanding, and was given the opportunity to ask questions. documented in this [id number] Hospital Discharge instructions * Discharge Instr - IP PT* Colleen Ugalde, PT - 08/02/2021 9:09 AM EDT Pt to be discharged with 2WW (already in room) documented in this [id number] Emergency department Note* Adina Moreno RN - 07/31/2021 6:32 PM EDT Report given to 4124 RN, no s/s of distress, resp =/unlabored * Kiarra Bennett PA-C - 07/31/2021 5:48 PM EDT Associated Order(s): Splint Application ED PROVIDER NOTE [facility] EMERGENCY DEPARTMENT NAME: Azeb Hutchison AGE: 55 y.o. : 1965 VISIT DATE: 07/31/2021 CSN: [id number] PCP: Rehana Hernandez MD Chief Complaint Patient [...] Friends and Family: Not on file Attends Taoism Services: Not on file Active Member of [...] (36.8 C) (!) 20 100 % 5' 3" 69.4 kg (153 lb) 07/31/21 1514 90 [...] Application Date/Time: 07/31/2021 5:56 PM Performed by: Kiarra Bennett PA-C Authorized by: Cristian Ely MD Verbal [...] immediate complications MDM ED Course as of 07/31/211756Jul 31, 2021 8569 [facility] [] ED Course User Index [] Kiarra Bennett PA-C The patient has been informed that [...] care Follow-up information has not been specified. Kairra Bennett PA-C 07/31/211756 * Nisa Manzo - 07/31/2021 3:16 PM EDT Bed: 04 Expected date: Expected time: Means of arrival: Comments: R1 * Linda Queen RN - 07/31/2021 3:10 PM EDT Fell down 2-3 stairs at doctor's office. Right ankle pain, in brace upon arrival documented in this [id number] History and physical note* Rogelio Shaw MD - 07/31/2021 5:34 PM EDT [facility] Patient Name: Azeb Hutchison : 1965 MR #: [id number] Admit Date: 07/31/2021 Physicians: Rehana Hernandez MD (Family); No ref. provider found (Referring) Azeb Hutchison is a 55 y.o. female patient of Rehana Hernnadez MD with no significant past medical history [...] on gentle IV fluid hydration. Admitted From: [facility] Medication Reconciliation: Verified Code Status: Full [...] F (36.8 C) Resp 16 Ht 5' 3" Wt 69.4 kg (153 lb) SpO2 100% [...] Medications 07/31/21 5:42 PM documented in this encounterOhioHealthConsult note Author Nikhil Paz [facility] August 12, 2023 10:51am Note Date/Time August 12, 2023 1 0:51am [facility] Medical Records Department [address] [place] [address] Counseling Note - Pharmacy 08/12/23 1050 MR#: [id number] Acct: [id number] Name: AZEB HUTCHISON V Rep #:[id number] : 1965 57 From: Nikhil Paz PCP: Dr. Rehana Hernandez MD Status:ADM IN Y [facility] Pharm[facility] Service has performed discharge medication reconciliation and counseling for this patient. The patient's discharge medication list was reviewed for discrepancies and discrepancies were resolved. The patient was counseled on the following discharge medications and changes in medications for homegoing were reviewed. The Reason for Use, instructions for use, and potential side effects were reviewed for all new medications. The patient's questions regarding all of their medications were answered.\\ 1. Ciprofloxacin 500 mg PO BID x 9 days 2. Metronidazole 500 mg PO TID x 9 days The patient was able to verbally demonstrate an understanding of their dischargemedications. The patient was counselled on new medications by pharmacy teacher Leon. Medications at Discharge Home Medications gjgpzblw-era-nazkh ac 400 mcg-calcium carb 500 mg-vit K1 20 mcg tablet 1 ea PO DAILY supplement 07/28/19 calcifediol 30 mcg capsule,24 hr,extended release (Rayaldee) 30 mcg PO DAILY DEFICIENCY 08/07/23 dapagliflozin propanediol 10 mg tablet (Farxiga) 10 mg PO QHS KIDNEY 08/07/23 levalbuterol HCl 1.25 mg/3 mL solution for nebulization 1.25 mg inhalation PRN ASTHMA 08/07/23 tafluprost (PF) 0.0015 % eye drops in a dropperette 1 drp ophthalmic (eye) QHS 08/07/23 albuterol sulfate 90 mcg/actuation aerosol inhaler 2 inh inhalation Q4H PRN shortness of breath or wheezing 08/08/23 ciprofloxacin HCl 500 mg tablet (Cipro) 500 mg PO BID 9 days #18 tabs 08/12/23 metronidazole 500 mg tablet 500 mg PO TID 9 days #27 tabs 08/12/23 08/12/23 1051 <Electronically signed by Nikhil roche> Date _ Nikhil Medeiros Signature (if applicable): Date CC: ~ Signed [facility] Work Phone: Discharge summary Author Letha Hebert [facility] August 12, 2023 10:24am Note Date/Time August 12, 2023 1 0:23am [facility] Medical Records Department [address] [place] [address] Instructions for Home/Discharge Instructions 08/12/23 1021 MR#: [id number] Acct: [id number] Name: GALINA HUTCHISONARIE Radha Rep #:[id number] : 1965 57 From: Letha Hebert MD PCP: Dr. Rehana Hernandez MD Status:ADM IN Discharge Instructions Diet Discharge Diet: - (Low residue diet for 2 weeks) Activity Discharge Activity: Return to Normal Activity Follow Up Care Test Results: Test results from this visit will be discussed in further detail at your follow- up appointment, if applicable. Discharge Plan Admission Admit Date/Time: 08/07/23 16:07 Primary Reason for Your Visit: Diverticulitis Attending Provider: Letha Hebert Primary Care Provider: Rehana Hernandez Consulting Providers: Rashad Moralez; Lizbeth Gomes; Letha Hebert; Lizbeth Gaston Instructions Patient Instructions: Diverticulitis Dc Additional Instructions / Restrictions: DISCHARGE INSTRUCTIONS PLEASE READ *Please take this with you to your next doctors appointment* -You will be discharged on ciprofloxacin and metronidazole, these prescriptions were called into your [facility] pharmacy on file -Please follow-up with surgery clinic upon discharge. Please call their office to schedule hospital follow-up appointment upon discharge. -Eat a diet low in fiber while recovering. -Foods to include: flake cereal, mashed potatoes, pancakes, waffles, pasta, white bread, rice, applesauce, bananas, eggs, fish, poultry, tofu, and well-cooked vegetables -Drink 6 to 8 glasses of water every day, unless told otherwise -Use a heating pad or hot water bottle to reduce abdominal cramping or pain -If you have not had a colonoscopy within the past year it is recommended that you have one in 6 to 8 weeks. This can be coordinated through your primary carephysician's office or surgery clinic office -Please call your primary care provider's office upon discharge to schedule a hospital follow up within 1 week. -For any concerning signs or symptoms please call 911 or proceed to the nearest emergency department Discharge Orders/Prescriptions Prescriptions: New ciprofloxacin HCl [Cipro] 500 mg tablet 500 mg PO BID 9 Days Qty: 18 0RF metronidazole 500 mg tablet 500 mg PO TID 9 Days Qty: 27 0RF No Action rs-mao-prlpd-calcium carb-K1 1 EACH tablet 1 ea PO DAILY Rayaldee 30 mcg capsule,extended release 24 hr 30 mcg PO DAILY Farxiga 10 mg tablet 10 mg PO QHS levalbuterol HCl 1.25 mg/3 mL solution for nebulization 1.25 mg INHALATION PRN tafluprost (PF) 0.0015 % dropperette 1 drp ophthalmic (eye) Q Patient Comments: INSTILL 1 DROP INTO BOTH EYES EVERY EVENING DIRECTED albuterol sulfate 90 mcg/actuation HFA aerosol inhaler 2 inh inhalation Q4H PRN (Reason: shortness of breath or wheezing) Referrals / Follow Up: Rehana Hernandez MD [Primary Care Provider] - Rashad Moralez MD [Med Staff - Active Staff] - 08/26/23 (Please contact our office to schedule an appointment 2 weeks from discharge. ) Disposition Disposition (needs filled in before D/C Order can be placed): Home, Self Care 08/12/23 1024<Electronically signed by Letha Hebert MD>Letha Hebert MD CC: Dr. Rehana Hernandez MD; Dr. Lizbeth Gaston MD; Dr. Lizbeth Gomes DO; Dr. Rashad Moralez MD; Dr. Letha Hebert MD ~ Signed [facility] Work Phone: Discharge summary Author [facility] August 12, 2023 10:25am Note Date/Time August 12, 2023 1 0:25am [facility] Medical Records Department [address] [place] [address] Discharge Summary 08/12/23 1024 MR#: [id number] Acct: [id number] Name: AZEB HUTCHISON V Rep #:[id number] : 1965 57 From: Letha Hebert MD PCP: Dr. Rehana Hernandez MD Status:ADM IN Location: [place] [address] Providers Date of Admission: 08/07/23 Date of Discharge: 08/12/23 Primary Care Physician: Dr. Rehana Hernandez MD Consultations 08/07/23 18:53 Consult: General Surgery Routine Consulting Provider: Rashad Moralez Reason for Consult: Acute Sigmoid Diverticulitis - Recurrent EMERGENT Consult: No MD Notified: Yes Date Notified: 08/07/23 Time Notified: 16:18 Method of Notification: Verbal Reason For Visit: ACUTE SIGMOID DIVERTICULITIS Diagnosis Discharge Diagnosis (1) Sigmoid diverticulitis: Status: Acute Code(s): K57.32 - Diverticulitis of large intestine without perforation or abscess without bleeding Plan 1. Acute sigmoid diverticulitis 2. Chronic kidney disease stage III 3. Mild intermittent asthma 4. Glaucoma Medications at Discharge Home Medications xekdasik-dgu-jcocv ac 400 mcg-calcium carb 500 mg-vit K1 20 mcg tablet 1 ea PO DAILY supplement 07/28/19 calcifediol 30 mcg capsule,24 hr,extended release (Rayaldee) 30 mcg PO DAILY DEFICIENCY 08/07/23 dapagliflozin propanediol 10 mg tablet (Farxiga) 10 mg PO QHS KIDNEY 08/07/23 levalbuterol HCl 1.25 mg/3 mL solution for nebulization 1.25 mg inhalation PRN ASTHMA 08/07/23 tafluprost (PF) 0.0015 % eye drops in a dropperette 1 drp ophthalmic (eye) QHS 08/07/23 albuterol sulfate 90 mcg/actuation aerosol inhaler 2 inh inhalation Q4H PRN shortness of breath or wheezing 08/08/23 ciprofloxacin HCl 500 mg tablet (Cipro) 500 mg PO BID 9 days #18 tabs 08/12/23 metronidazole 500 mg tablet 500 mg PO TID 9 days #27 tabs 08/12/23 Hospital Course Summary of Care Provided Minutes Spent on Discharge: 40 Hospital Course: 57-year-old female with history of asthma, glaucoma, CKD presented to [facility] 09/04/2023 with abdominal pain and was found to have acute sigmoid diverticulitis and was started on Cipro and Flagyl and consult was placed to general surgery. Diet was slowly advanced and patient provided with supportive care. Did have more pain 08/10 when diet was advanced and due to patient not tolerating it repeat CT scan obtained which showed improved sigmoid diverticulitis without abscess or perforation. Her diet was backed off and thenreadvanced slowly. Patient did improve with diet advancement. Discharge instructions as follows: DISCHARGE INSTRUCTIONS PLEASE READ *Please take this with you to your next doctors appointment* -You will be discharged on ciprofloxacin and metronidazole, these prescriptions were called into your [facility] pharmacy on file -Please follow-up with surgery clinic upon discharge. Please call their office to schedule hospital follow-up appointment upon discharge. -Eat a diet low in fiber while recovering. -Foods to include: flake cereal, mashed potatoes, pancakes, waffles, pasta, white bread, rice, applesauce, bananas, eggs, fish, poultry, tofu, and well-cooked vegetables -Drink 6 to 8 glasses of water every day, unless told otherwise -Use a heating pad or hot water bottle to reduce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 Yoli 08/02/21 at 1045, For 1 dose 0952 (Given - Provider: Kylie Malhotra RN) ketorolac (TORADOL) injection 15 mg (COMPLETED) 15 mg, Intravenous, Once, On Yoli 08/02/21 at 1100, For 1 dose 1124 (Given - Provider: Kylie Malhotra RN) oxyCODONE (ROXICODONE) immediate release tablet 5 mg (COMPLETED) 5 mg, Oral, Once, On Yoli 08/02/21 at 1145, For 1 dose 1124 (Given - Provider: Kylie Malhotra RN) sodium chloride (PF) (NS) flush 5 mL(Linked Group 1) 5 mL, Intravenous, Every 8 hours scheduled, First dose on Fri07/31/21 at 1740, Saline lock 0600 (Not Given - Provider: Dang Leon RN - Reason: Other - Comment: iv infusing)1148 (MAR Hold - Provider: Transfer Provider, Automatic - Reason: Unreviewed Transfer Orders)1400 (Automatically Held - Provider: Transfer Provider, Automatic)1619 (DEC Unhold - Provider: Jacki Morton RN)2200 (Not Given - Provider: Edie Gil RN - Reason: Other - Comment: IV currently infusing) 0600 (Not Given - Provider: Edie Gil RN - Reason: Other - Comment: IV currently infusing)1330 (Given - Provider: Kylie Malhotra RN)2041 (Given - Provider: Nara Sykes, HEIDI)2200 (Hold - Provider: Nara Sykes RN - Reason: Contraindicated) 0600 (Given - Provider: Nara Sykes RN)1400 (Not Given - Provider: Mary Mendes RN - Reason: Loss of IV access) Continuous Medication Order 08/01/2021 08/02/2021 08/03/2021 lactated Ringers infusion (CANCELED) 100 mL/hr, Intravenous, Continuous, Starting on Fri08/01/21 at 1515, PACU (only) 1633 (New Bag - Provider: Jacki Morton, HEIDI)2054 (Stopped - Provider: Edie Gil RN) 1919 (Stopped - Provider: Kylie Malhotra RN) sodium chloride 0.9% (NS) (CANCELED) 100 mL/hr, Intravenous, Continuous, Starting on Fri07/31/21 at 1740 0553 (Stopped - Provider: Dang Leon RN)0558 (New Bag - Provider: Dang Leon RN)0558 (Rate/Dose Verify - Provider: Jacki Morton, HEIDI)0856 (Rate/Dose Verify - Provider: Jacki Morton, RN)0911 (Rate/Dose Verify - Provider: Jacki Morton, RN)1139 (Stopped - Provider: Jacki Morton RN)1148 (DEC Hold - Provider: Transfer Provider, Automatic - Reason: Unreviewed Transfer Orders)1619 (MAR Unhold - Provider: Jacki Morton RN)2054 (New Bag - Provider: Edie Gil, HEIDI) 1919 (Stopped - Provider: Kylie Malhotra RN) PRN Medication Order 08/01/2021 08/02/2021 08/03/2021 aluminum-magnesium hydroxide-simethicone (MAALOX PLUS) 200-200-20 mg/5 mL suspension 30 mL 30 mL, Oral, Every 4 hours PRN, indigestion, Starting on Fri07/31/21 at 1738 1148 (MAR Hold - Provider: Transfer Provider, Automatic - [...] Provider, Automatic - Reason: Unreviewed Transfer Orders)1619 ([facility] Unhold - Provider: Ximena John MD) ketorolac (TORADOL) injection 30 mg 30 mg, Intravenous, Every 6 hours PRN, mild pain, Starting on Yoli 08/02/21 at 1053, For 48 hours 1629 (Given - Provider: Kylie Malhotra, HEIDI)2037 (Given - Provider: Nara Sykes, HEIDI) 0506 (Given - Provider: Nara Sykes RN)1147 (Given - Provider: Mary Mendes RN) magnesium hydroxide (MOM) 400 mg/5 mL suspension 2,400 mg 2,400 mg (30 mL), Oral, Daily PRN, constipation, Starting on Fri07/31/21 at 1738, If no bowel movement in 24 hours after Sennosides (SENNA) administration. 1148 (DEC Hold - Provider: Transfer Provider, Automatic - Reason: Unreviewed Transfer Orders)1619 (DEC Unhold - Provider: Jacki Morton RN) naloxone [...] respiratory rate is 10 or greater. 1148 (DEC Hold - Provider: Transfer Provider, Automatic - Reason: Unreviewed Transfer Orders)1619 ([facility] Unhold - Provider: Jacki Morton RN) naloxone (NARCAN) injection 0.4 mg(Linked Group 2) 0.4 mg, Intravenous, As needed, opioid reversal, patient is pulseless, breathless, and unresponsive, Starting on Fri07/31/21 at 1737, Call a code first, then administer naloxone dose undiluted IV Push over 30 seconds. 1148 (DEC Hold - Provider: Transfer Provider, Automatic - Reason: Unreviewed Transfer Orders)1619 ([facility] Unhold - Provider: Jacki Morton RN) ondansetron (ZOFRAN) injection 4 mg 4 mg, Intravenous, Every 6 hours PRN, nausea, vomiting, Starting on Fri07/31/21 at 1738 0027 (Given - Provider: Dang Leon RN - Comment: pt requested for nasuea)1148 ([facility] Hold - Provider: Transfer Provider, Automatic - Reason: Unreviewed Transfer Orders)1619 ([facility] Unhold - Provider: Jacki Morton RN) oxyCODONE (ROXICODONE) immediate release tablet 5 mg 5 mg, Oral, Every 4 hours PRN, moderate to severe pain, Starting on Fri08/01/21 at 1619 0025 (Given - Provider: Edie Gil RN)0421 (Given - Provider: Edie Gil RN)0943 (Given - Provider: Tomeka Guerra RN - Comment: pt c/o 07/15 R ankle)1113 (Canceled Entry - Provider: Kylie Roscoe, RN)1329 (Given - Provider: Kylie Malhotra RN)1850 (Given - Provider: Kylie Malhotra, RN)2235 (Given - Provider: Nara Sykes, HEIDI) 0908 (Given - Provider: Mary Mendes, RN)1304 (Given - Provider: Mary Mendes, RN) senna (SENOKOT) tablet 8.6 mg 8.6 mg (1 tablet), Oral, 2 times daily PRN, constipation, Starting on Fri07/31/21 at 1738 1148 (MAR Hold - Provider: Transfer Provider, Automatic - Reason: Unreviewed Transfer Orders)1619 (MAR Unhold - Provider: Jacki Morton RN) sodium chloride (PF) (NS) flush 5 mL(Linked Group 1) 5 mL, Intravenous, As needed, line care, Starting on Fri07/31/21 at 1738 0446 (Given - Provider: Dang Leon RN)1148 (MAR Hold - Provider: Transfer Provider, Automatic - Reason: Unreviewed Transfer Orders)161 ([facility] Unhold - Provider: Jacki Morton RN) sodium chloride 0.9% (NS)(Linked Group 1) 0-150 mL/hr, Intravenous, As needed, To flush line after IV infusions when no maintenance IV ordered or a compatibility issue. Infuse 20ml at the same rate as the secondary infusion, Starting on Fri07/31/21 at 1738, Run as Primary IV. NOT intended for KVO. 1148 (MAR Hold - Provider: Transfer Provider, Automatic - Reason: Unreviewed Transfer Orders)161 ([facility] Unhold - Provider: Jacki Morton, HEIDI) traZODone (DESYREL) tablet 50 mg 50 mg, Oral, Nightly PRN, sleep, Starting on Fri07/31/21 at 1738, May repeat times 1 in 30 minutes if still awake. 1148 (MAR Hold - Provider: Transfer Provider, Automatic - Reason: Unreviewed Transfer Orders)1619 ([facility] Unhold - Provider: Jacki Morton RN) vancomycin [...] duration of 12 hours. An action of "Patch Applied" within the MAR will schedule the MAR patch removal 12 hours later. 2124 (Patch [...] Nursing to document as GIVEN on the [facility] and include comment of patient receipt of the 4 pack. 2123 (Given - Provid er: Emi Chu RN) Scheduled Medication Order 05/13/2023 05/14/2023 05/15/2023 diphenhydrAMINE (BENADRYL) injection 25 mg (COMPLETED) 25 mg, Intravenous, ONCE, 1 dose, On Yoli 05/15/23 at 2014 1947 (Given - Provid er: Jane Mccall, HEIDI) famotidine (PF) (PEPCID) injection 40 mg (COMPLETED) 40 mg, Intravenous, ONCE, 1 dose, On Yoli 05/15/23 at 194, Administer undiluted by slow IV push at a rate not to exceed 10mg/min. 1947 (Given - Provid er: Jane Mccall, HEIDI) Ketorolac (TORADOL) injection 15 mg (COMPLETED) 15 mg, Intravenous, ONCE, 1 dose, On Yoli 05/15/23 at 2115 2043 (Given - Provid er: Jane Mccall RN) [...] 1 Application, Topical, ONCE, 1 dose, On 07/11/23 at 1400, Apply to laceration dorsum of IP joint left thumb. Then bandaid. Then re-apply patient's thumb splint which she has with her. 1345 (Given - Provid er: Juli Flores RN) Scheduled Medication Order 06/30/2024 07/01/2024 07/02/2024 Acetaminophen (TYLENOL) tablet 650 mg (COMPLETED) 650 mg, Oral, ONCE, 1 dose, On Fri07/02/24 at 0215, Maximum dose of acetaminophen is 4000 mg from all sources in 24 hours. 0159 (Given - Provid er: Crystal Martínez RN) hydroCODone-acetaminophen (NORCO) 5-325 MG per tablet 1 tablet (COMPLETED) 1 tablet, Oral, ONCE, 1 dose, On Fri07/02/24 at 0230 0159 (Given - Provid er: Crystal Martínez RN) Scheduled Medication Order 10/19/2024 10/20/2024 10/21/2024 HYDROmorphone (DILAUDID) injection 0.5 mg (COMPLETED) 0.5 mg, Intravenous, ONCE, 1 dose, On Yoli 10/21/24 at 1015 0940 (Given - Provid er: Wilber Dueñas RN) Continuous Medication Order 10/19/2024 10/20/2024 10/21/2024 Lactated ringers IV solution Intravenous, at 75 mL/hr, CONTINUOUS, Starting on Yoli 10/21/24 at 0645, Until Yoli 10/21/24 at 1318, Pre-op/Pre-Proc 0705 ($$New Bag$$ - Provider: Marva Leung RN)0753 (Rate/Dose Change - Provider: VITALIY Colón)0810 (Rate/Dose Change - Provider: VITALIY Colón) PRN Medication Order 10/19/2024 10/20/2024 10/21/2024 BUPivacaine (PF) (MARCAINE) 0.5 % injection (CANCELED) NEEDED, Starting on Yoli 10/21/24 at 0822, Until Yoli 10/21/24 at 0908, Intra-op/Intra-Proc 0822 (Given - Provid er: Tom Cross MD - Comment: Given to sterile field) clindamycin (CLEOCIN) 600 mg in normal saline 50 ml premix IVPB (COMPLETED) 600 mg, Intravenous, Administer over 20 Minutes, BRAKE RELINER TO PROCEDURE, 1 dose, Starting on Yoli 10/21/24 at 0643, Until Yoli 10/21/24 at 0850, Other, Pre-operative antibiotic, Pre-op/Pre-Proc 0830 (Given - Provid er: VITALIY Colón) EPINEPHrine PF (ADRENALIN) 1 MG/ML 1 mg in Lactated ringers 5,000 mL irrigation solution (CANCELED) NEEDED, Starting on Yoli 10/21/24 at 0823, Until Yoli 10/21/24 at 0908, Intra-op/Intra-Proc 0823 (Given - Provid er: Tom Cross MD - Comment: Attached to irrigation tubing, used intraop.) hydroCODone-acetaminophen (NORCO) 5-325 MG per tablet 1-2 tablet 1-2 tablet, Oral, EVERY 4 HOURS NEEDED, Starting on Yoli 25 at 0930, Until Yoli 10/21/24 at 1318, Moderate Pain, Post-op/Post-Proc 1026 (Given - Provid er: Jacquelyn Gooden RN) HYDROmorphone (DILAUDID) injection 0.5 mg 0.5 mg, Intravenous, EVERY 1 HOUR NEEDED, 2 doses, Starting on Yoli 10/21/24 at 0918, Until Yoli 10/21/24 at 1318, Moderate Pain, Severe Pain, In PACU for c/o pain, Recovery 0923 (Given - Provid er: Wilber Dueñas RN) Lidocaine (XYLOCAINE) 10 mg/mL injection (CANCELED) NEEDED, Starting on Yoli 10/21/24 at 0823, Until Yoli 10/21/24 at 0908, Intra-op/Intra-Proc 0823 (Given - Provid er: Tom Cross MD - Comment: Given to sterile field) Ondansetron 4mg/2ml (ZOFRAN) injection 4 mg 4 mg, Intravenous, EVERY 4 HOURS NEEDED, Starting on Yoli 10/21/24 at 0930, Until Yoli 10/21/24 at 1318, Nausea / Vomiting, Post-op/Post-Proc Care Teams (unrecognized sec tion and content) Reservations Manager Relationship Specialty Start Date End Date Rehana Hernandez MD [address] [facility] [address] [place] [address] PCP - General Family Medicine 03/26/16 Reservations Manager Relationship Specialty Start Date End Date Rehana Hernandez MD [address] [facility] [address] [place] [address] PCP - General Family Medicine 03/26/16 Reservations Manager Relationship Specialty Start Date End Date Rehana Hernandez MD [address] [facility] [address] [place] [address] PCP - General Family Medicine 03/26/16 Reservations Manager Relationship Specialty Start Date End Date Rehana Henrandez MD [address] [facility] [address] [place] [address] PCP - General Family Medicine 03/26/16 Reservations Manager Relationship Specialty Start Date End Date Rehana Hernandez MD [address] [facility] [address] [place] [address] PCP - General Family Medicine 03/26/16 Reservations Manager Relationship Specialty Start Date End Date Rehana Hernandez MD [address] [facility] [address] [place] [address] PCP - General Family Medicine 03/26/16 Reservations Manager Relationship Specialty Start Date End Date Rehana Hernandez MD [address] [place] [address] PCP - General Family Medicine 03/26/16 Reservations Manager Relationship Specialty Start Date End Date Rehana Hernandez MD [address] [facility] [address] [place] [address] PCP - General Family Medicine 03/26/16 Reservations Manager Relationship Specialty Start Date End Date Rehana Hernandez MD [address] [place] [address] PCP - General Family Medicine 03/26/16 Reservations Manager Relationship Specialty Start Date End Date Rehana Hernandez MD [address] [place] [address] PCP - General Family Medicine 03/26/16 Reservations Manager Relationship Specialty Start Date End Date Rehana Hernandez MD [address] [place] [address] PCP - General Family Medicine 03/26/16 Reservations Manager Relationship Specialty Start Date End Date Rehana Hernandez MD [address] [place] [address] PCP - General Family Medicine 03/26/16 Reservations Manager Relationship Specialty Start Date End Date Rehana Hernandez MD [address] [place] [address] PCP - General Family Medicine 03/26/16 Reservations Manager Relationship Specialty Start Date End Date Rehana Hernandez MD [address] [place] [address] PCP - General Family Medicine 03/26/16 Reservations Manager Relationship Specialty Start Date End Date Rehana Hernandez MD [address] [facility] [address] [place] [address] PCP - General Family Medicine 03/26/16 Reservations Manager Relationship Specialty Start Date End Date Rehana Hernandez MD [address] [facility] [address] [place] [address] PCP - General Family Medicine 03/26/16 Reservations Manager Relationship Specialty Start Date End Date Rehana Hernandez MD [address] [facility] [address] [place] [address] PCP - General Family Medicine 03/26/16 Reservations Manager Relationship Specialty Start Date End Date Rehana Hernandez MD [address] [facility] [address] [place] [address] PCP - General Family Medicine 03/26/16 Reservations Manager Relationship Specialty Start Date End Date Rehana Hernandez MD [address] [facility] [address] [place] [address] PCP - General Family Medicine 03/26/16 Reservations Manager Relationship Specialty Start Date End Date Rehana Hernandez MD [address] [facility] [address] [place] [address] PCP - General Family Medicine 03/26/16 Reservations Manager Relationship Specialty Start Date End Date Rehana Hernandez MD [address] [facility] [place] [address] PCP - General Family Medicine 12/21/21 Reservations Manager Relationship Specialty Start Date End Date Rehana Hernandez MD [address] [facility] [place] [address] PCP - General Family Medicine 12/21/21 Reservations Manager Relationship Specialty Start Date End Date Rehana Hernandez MD [address] [place] [phone] PCP - General Family Medicine 12/21/21 Reservations Manager Relationship Specialty Start Date End Date Rehana Hernandez MD [address] [place] [phone] PCP - General Family Medicine 12/21/21 Reservations Manager Relationship Specialty Start Date End Date Rehana Hernandez MD [address] [place] [phone] PCP - General Family Medicine 12/21/21 Reservations Manager Relationship Specialty Start Date End Date Rehana Hernandez MD [address] [place] [phone] PCP - General Family Medicine 12/21/21 Reservations Manager Relationship Specialty Start Date End Date Rehana Hernandez MD [address] [place] [address] PCP - General Family Medicine 12/21/21 Reservations Manager Relationship Specialty Start Date End Date eRhana Hernandez MD [address] [place] [address] PCP - General Family Medicine 12/21/21 Reservations Manager Relationship Specialty Start Date End Date Rehana Hernandez MD [address] [place] [address] PCP - General Family Medicine 12/21/21 Reservations Manager Relationship Specialty Start Date End Date Rehana Hernandez MD [address] [place] [phone] PCP - General Family Medicine 12/21/21 Reservations Manager Relationship Specialty Start Date End Date Rehana Hernandez MD [address] [place] [address] PCP - General Family Medicine 12/21/21 Reservations Manager Relationship Specialty Start Date End Date Rehana Hernandez MD [address] [place] [address] PCP - General Family Medicine 12/21/21 Team Status: Active Member Role Status Dates Dr. Rehana Hernandez MD Family Provider Active Dr. Rehana Hernandez MD Primary Care Provider Active Team Status: Active Member Role Status Dates Dr. Rehana Hernandez MD Primary Care Provider Active Dr. Alexis Shultz MD Emergency Provider Active Dr. Lizbeth Gomes DO Attending Provider Active Team Status: Active Member Role Status Dates Dr. Rehana Hernandez MD Primary Care Provider Active Dr. Alexis Shultz MD Emergency Provider Active Dr. Lizbeth Gomes DO Admit Provider, Attending Pr ovider Active Team Status: Active Member Role Status Dates Dr. Rehana Hernandez MD Primary Care Provider Active Dr. Alexis Shultz MD Emergency Provider Active Dr. Lizbeth Gomes DO Admit Provider, Other Provid er Active Dr. Rashad Moralez MD Other Provider Active Dr. Lizbeth Gaston MD Attending Provider, Other Provid er Active Team Status: Active Member Role Status Dates Dr. Rehana Hernandez MD Primary Care Provider Active Dr. Alexis Shultz MD Emergency Provider Active Dr. Lizbeth Gomes DO Admit Provider, Other Provid er Active Dr. Rashad Moralez MD Attending Provider, Other Provi lópez Active Dr. Lizbeth Gaston MD Other Provider Active Team Status: Active Member Role Status Dates Dr. Rehana Hernandez MD Primary Care Provider Active Dr. Alexis Shultz MD Emergency Provider Active Dr. Lizbeth Gomes DO Admit Provider, Other Provid er Active Dr. Rashad Moralez MD Other Provider Active Dr. Lizbeth Gaston MD Other Provider Active Dr. Zen Hansen MD Attending Provider Active Team Status: Active Member Role Status Dates Dr. Rehana Hernandez MD Primary Care Provider Active Dr. Alexis Shultz MD Emergency Provider Active Dr. Lizbeth Gomes DO Admit Provider, Other Provid er Active Dr. Rashad Moralez MD Attending Provider, Other Provi lópez Active Dr. Letha Hebert MD Other Provider Active Dr. Lizbeth Gaston MD Other Provider Active Team Status: Active Member Role Status Dates Dr. Rehana Hernandez MD Primary Care Provider Active Dr. Alexis Shultz MD Emergency Provider Active Dr. Lizbeth Gomes DO Admit Provider, Other Provid er Active Dr. Rashad Moralez MD Other Provider Active Dr. Letha Hebert MD Attending Provider, Other Provid er Active Dr. Lizbeth Gaston MD Other Provider Active Team Status: Active Member Role Status Dates Dr. Rehana Hernandez MD Primary Care Provider Active Dr. Alexis Shultz MD Emergency Provider Active Dr. Lizbeth Gomes DO Admit Provider, Other Provid er Active Dr. Rashad Moralez MD Other Provider Active Dr. Letha Hebert MD Other Provider Active Dr. Lizbeth Gaston MD Other Provider Active Zoila VENCES PA-C Attending Provider Active Team Status: Inactive Member Role Status Dates Dr. Rehana Hernandez MD Primary Care Provider Active Dr. Alexis Shultz MD Emergency Provider Active Dr. Lizbeth Gomes DO Admit Provider, Other Provid er Active Dr. Rashad Moralez MD Other Provider Active Dr. Letha Hebert MD Attending Provider, Other Provid er Active Dr. Lizbeth Gaston MD Other Provider Active Reservations Manager Relationship Specialty Start Date End Date Rehana Hernandez MD [address] [place] [phone] PCP - General Family Medicine 12/21/21 Reservations Manager Relationship Specialty Start Date End Date Rehana Hernandez MD [address] [place] [phone] PCP - General Family Medicine 12/21/21 Team Status: Active Member Role Status Dates Dr. Rehana Hernandez MD Primary Care Provider Active Dr. Alexis Shultz MD Emergency Provider Active Dr. Lizbeth Gomes DO Admit Provider, Other Provid er Active Dr. Rashad Moralez MD Attending Provider, Other Provi lópez Active Dr. Lizbeth Gaston MD Other Provider Active Dr. Letha Hebert MD Referring Provider Active Team Status: Inactive Member Role Status Dates Dr. Rehana Hernandez MD Primary Care Provider Active Dr. Rashad Moralez MD Attending Provider, Referring P rolaineyder Active Team Status: Active Member Role Status Dates Dr. Rehana Hernandez MD Primary Care Provider, Referrin g Provider Active Dr. Rashad Moralez MD Attending Provider, Other Provi lópez Active Team Status: Inactive Member Role Status Dates Dr. Rehana Hernandez MD Primary Care Provider, Referrin g Provider Active Dr. Rashad Moralez MD Attending Provider Active Reservations Manager Relationship Specialty Start Date End Date Rehana Hernandez MD [address] [place] [phone] PCP - General Family Medicine 12/21/21 Reservations Manager Relationship Specialty Start Date End Date Rehana Hernandez MD [address] [place] [phone] PCP - General Family Medicine 12/21/21 Reservations Manager Relationship Specialty Start Date End Date Rehana Hernandez MD [address] [place] [phone] PCP - General Family Medicine 12/21/21 Team Status: Inactive Member Role Status Dates Dr. Rehana Hernandez MD Primary Care Prov ider, Attending Provider, Referring Provider Active Reservations Manager Relationship Specialty Start Date End Date Rehana Hernandez MD [address] [place] [address] PCP - General Family Medicine 12/21/21 Reservations Manager Relationship Specialty Start Date End Date Rehana Hernandez MD [address] [place] [address] PCP - General Family Medicine 12/21/21 Reservations Manager Relationship Specialty Start Date End Date Rehana Hernandez MD [address] [place] [address] PCP - General Family Medicine 12/21/21 Reservations Manager Relationship Specialty Start Date End Date Rehana Hernandez MD [address] [place] [address] PCP - General Family Medicine 12/21/21 Reservations Manager Relationship Specialty Start Date End Date Rehana Hernandez MD [address] [place] [address] PCP - General Family Medicine 12/21/21 Reservations Manager Relationship Specialty Start Date End Date Rehana Hernandez MD [address] [place] [address] PCP - General Family Medicine 12/21/21 Reservations Manager Relationship Specialty Start Date End Date Rehana Hernandez MD [address] [place] [address] PCP - General Family Medicine 12/21/21 Reservations Manager Relationship Specialty Start Date End Date Rehana Hernandez MD [address] [place] [address] PCP - General Family Medicine 12/21/21 Team Status: Active Member Role Status Dates Dr. Rehana Hernandez MD Primary Care Provider Active Team Status: Inactive Member Role Status Dates Dr. Rehana Hernandez MD Primary Care Provider Active Start: November 26, 2024 End: November 26, 2024 Dr. Rehana Hernandez MD Attending Provider Active Start: November 26, 2024 End: November 26, 2024 Dr. Rehana Hernandez MD Referring Provider Active Start: November 26, 2024 End: November 26, 2024 Team Status: Inactive Member Role Status Dates Dr. Rehana Hernandez MD Primary Care Provider Active Start: January 19, 2025 End: January 19, 2025 Dr. Rehana Hernandez MD Attending Provider Active Start: January 19, 2025 End: January 19, 2025 Dr. Rehana Hernandez MD Referring Provider Active Start: January 19, 2025 End: January 19, 2025 Reservations Manager Relationship Specialty Start Date End Date Rehana Hernandez MD [address] [facility] [address] [place] [address] PCP - General Family Medicine 03/26/16 Reservations Manager Relationship Specialty Start Date End Date Rehana Hernandez MD PCP - General Family Medicine 12/21/21 Gurpreet Dove Dental Student 03/01/25 Atul Cruz DDS [address] [place] [phone] Deputy Sheriff [employer] 03/01/25 Reservations Manager Relationship Specialty Start Date End Date Rehana Hernandez MD PCP - General Family Medicine 12/21/21 Gurpreet Dove Dental Student 03/01/25 Atul Cruz DDS [address] [place] [address] Deputy Sheriff Lieutenant Dentistry 03/01/25 <item><item><item> Privacy Markings (unrecogniz ed section and [...] you with the consent of such client. Goals (unrecognized section and content) Goals may be documented in a n alternate sectionGoals may be documented in an alternate sectionGoals may be documented in an alternate sectionGoals may be documented in an alternate sectionGoals may be documented in an alternate sectionGoals may be documented in an alternate sectionGoals may be documented in an alternate section FOR RECORDS PERTAINING TO PATIENTS WHO ARE [...] BE BASED ON THE PRIMARY CLINICAL RECORDS. [facility]. provides no warranty or guarantee of the accuracy or completeness of information in this document.
== END | disposition home or self-care (01) ==
LOC: MTRAD 15:37
PROVIDERS: PCP Family Medicine
DX: M25.511 Pain in right shoulder (principal)
CPT/HCPCS: 73030